=== PATIENT | female | born 1960 | race Caucasian/White ===

== ENCOUNTER 2016-09-12 22:32 | Emergency (ER) | payer OTHER ==
[~2016-09-12] VITALS: Ht 154.9 cm; Wt 90.7 kg
[~2016-09-12 22:32] MED LIST: ALBU8.5H6 INH; ASPI-612 PO; ASPI-630 PO; BUDE10.2 IH; CEFP200T PO; FLUT1DIS3 IH; GLIP5TAB10 PO; GLYB5TAB3 PO; LOSA25TA4 PO; LOSA50TA2 PO; METF500T PO; METF500T4 PO; PANT40TA5 PO; PRED20TA PO; SIMV10TA3 PO; SITA100T PO; TRAM50TA PO; TRAZ100T12 PO; ZIPR80CA2 PO
[2016-09-12] MEDS ORDERED: IV NORMAL SALINE 500ML BAG 500 ML IV ONE (23:45)
[2016-09-12] MEDS ORDERED: HYDROmorphone 2 MG/ML VIAL IV PRN (23:45)
[2016-09-12] MEDS ORDERED: ONDANSETRON PF 4 MG/2 ML VIAL. IV ONE (23:45)
[2016-09-12 23:55] LABS: BILIRUBIN,URINE NEGATIVE (NEG); GLUCOSE,URINE >=1000 mg/dL (NEG); NITRITE,URINE NEGATIVE (NEG); PROTEIN,URINE NEGATIVE (NEG-TRACE); UROBILINOGEN,URINE 0.2 mg/dL (0.2 mg/dL)
[2016-09-13] MEDS ORDERED: LABETALOL 20 MG/4 ML DISP.SYRIN. IVP ONE
[2016-09-13 00:04] LABS: BACTERIA,URINE FEW /HPF (0-FEW); RBC,URINE OCC /HPF (0-2); SQUAMOUS EPITHELIAL CELL,UR FEW /LPF; WBC,URINE 20-40 /HPF (0-4)
[2016-09-13 00:25] LABS: BASO # 0.1 x10^3/uL (0.0-0.2); BASO % 1 % (0-3); EOS % 10 % (0-3); HEMATOCRIT 40.1 % (36.0-47.0); HEMOGLOBIN 13.1 g/dL (12.0-15.5); LYMPH # 2.3 x10^3/uL (1.0-4.8); LYMPH % 37 % (24-48); MEAN CORPUSCULAR HEMOGLOBIN 29 pg (25-35); MEAN CORPUSCULAR HGB CONC 33 g/dL (31-37); MEAN CORPUSCULAR VOLUME 90 fL (79-100); MONO % 7 % (0-9); NEUT % 45 % (31-73); PLATELET COUNT 266 x10^3/uL (140-400); RED BLOOD COUNT 4.47 x10^6/uL (3.50-5.40); RED CELL DISTRIBUTION WIDTH 14.1 % (11.5-14.5); WHITE BLOOD COUNT 6.3 x10^3/uL (4.0-11.0)
[2016-09-13 00:33] LABS: CALCIUM 8.7 mg/dL (8.5-10.1); CREATININE 0.8 mg/dL (0.6-1.0); GFR 73.9; POTASSIUM 4.3 mmol/L (3.5-5.1)
[2016-09-13 00:38] LABS: ALBUMIN 3.9 g/dL (3.4-5.0); DIRECT BILIRUBIN 0.1 mg/dL (0.0-0.2); TOTAL BILIRUBIN 0.1 mg/dL (0.2-1.0); TOTAL PROTEIN 7.1 g/dL (6.4-8.2)
[2016-09-13] MEDS ORDERED: MORP15TA PO (01:08)
[2016-09-13] MEDS ORDERED: ONDA4TAB10 SL (01:08)
--- NOTE | 2016-09-13 01:08 | PHYS DOC ---
Past Medical History Past Medical History: Asthma, Bronchitis, COPD, Depression, Diabetes-Type II, High Cholesterol, Hypertension, Other Additional Past Medical Histor: PYLEONEPHRITIS, INSOMNIA, MR Past Surgical History: Appendectomy, Hysterectomy, Tonsillectomy Alcohol Use: None Drug Use: None Adult General Chief Complaint Chief Complaint: MULTIPLE COMPLAINTS HPI HPI 55-year-old female presenting to the emergency department today primarily to be evaluated for her abdominal pain. She stated "the main reason I am here is to be seen for my belly pain". Her abdominal pain is been present for the past month it is intermittent nonradiating and without alleviating factors. It is moderate and not associated with nausea or vomiting. She also has a headache that she describes as a chronic headache is mild. Review of systems is negative for chest pain shortness of breath fevers chills diarrhea constipation blood in stool. All other review of systems is negative unless otherwise noted in history of present illness. ED course: 55-year-old female presenting to the emergency department with abdominal pain. Vital signs showed chronic hypertension. The patient was given medication for her hypertension. Initial abdominal exam: Soft nontender abdomen without rebound tenderness or guarding present. Negative McBurneys point. Negative Hyde sign. No ecchymosis present.. Otherwise blood work obtained along with a abdomen CT. Unremarkable workup. On reexamination the patient's abdomen continues to be nontender. The patient was then discharged home in stable condition to follow up with their primary care physician over the next 2- 3 days. They were to return if their symptoms worsened or if they were concerned for any reason. [id number] discharge instructions and return precautions were given. Patient's questions were answered to their satisfaction. Patient is comfortable plan. Review of Systems Review of Systems SEE ABOVE. Current Medications Current Medications Current Medications Medications (Trade) Dose Ordered Sig/[place] Start Time Stop Time Status Last Admin Dose Admin Hydromorphone HCl (Dilaudid) 0.5 mg PRN Q1HR PRN 09/12/16 23:45 09/13/16 00:04 0.5 MG Labetalol HCl (Normodyne) 20 mg 1X ONCE 09/13/16 00:00 09/13/16 00:01 DC 09/13/16 00:14 20 MG Ondansetron HCl (Zofran) 4 mg 1X ONCE 09/12/16 23:45 09/12/16 23:46 DC 09/13/16 00:01 4 MG Sodium Chloride 500 ml @ 500 mls/hr 1X ONCE 09/12/16 23:45 09/13/16 00:44 DC 09/12/16 23:59 500 MLS/HR Allergies Allergies Allergies Coded Allergies Type Severity Reaction Last Updated Verified No Known Drug Allergies 03/03/13 No Physical Exam Physical Exam Constitutional: Well developed, well nourished, no acute distress, non-toxic appearance. HENT: Normocephalic, atraumatic, bilateral external ears normal, oropharynx moist, no oral exudates, nose normal. [] Eyes: PERRLA, EOMI, conjunctiva normal, no discharge. [] Neck: Normal range of motion, no tenderness, supple, no stridor. [] Cardiovascular:Heart rate regular rhythm, no murmur [] Lungs & Thorax: Bilateral breath sounds clear to auscultation Abdomen: see above Skin: Warm, dry, no erythema, no rash. [] Back: No tenderness, no CVA tenderness. [] Extremities: No tenderness, no cyanosis, no clubbing, ROM intact, no edema. Neurologic: Alert and oriented X 3, normal motor function, normal sensory function, no focal deficits noted. [] Psychologic: Affect normal, judgement normal, mood normal. [] Current Patient Data Vital Signs Vital Signs Date Time Temp Pulse Resp B/P (MAP) Pulse Ox O2 Delivery O2 Flow Rate FiO2 09/13/16 00:28 92 160/107 (124) 09/13/16 00:11 92 Room Air 09/13/16 00:04 16 09/12/16 23:12 98.2 98.2 Lab Values Laboratory Tests Test 09/12/16 00:15 09/12/16 22:54 09/12/16 23:45 White Blood Count 6.3 x10^3/uL (4.0-11.0) Red Blood Count 4.47 x10^6/uL (3.50-5.40) Hemoglobin 13.1 g/dL (12.0-15.5) Hematocrit 40.1 % (36.0-47.0) Mean Corpuscular Volume 90 fL (79-100) Mean Corpuscular Hemoglobin 29 pg (25-35) Mean Corpuscular Hemoglobin Concent 33 g/dL (31-37) Red Cell Distribution Width 14.1 % (11.5-14.5) Platelet Count 266 x10^3/uL (140-400) Neutrophils (%) (Auto) 45 % (31-73) Lymphocytes (%) (Auto) 37 % (24-48) Monocytes (%) (Auto) 7 % (0-9) Eosinophils (%) (Auto) 10 % (0-3) H Basophils (%) (Auto) 1 % (0-3) Neutrophils # (Auto) 2.8 x10^3uL (1.8-7.7) Lymphocytes # (Auto) 2.3 x10^3/uL (1.0-4.8) Monocytes # (Auto) 0.4 x10^3/uL (0.0-1.1) Eosinophils # (Auto) 0.6 x10^3/uL (0.0-0.7) Basophils # (Auto) 0.1 x10^3/uL (0.0-0.2) Sodium Level 140 mmol/L (136-145) Potassium Level 4.3 mmol/L (3.5-5.1) Chloride Level 102 mmol/L (98-107) Carbon Dioxide Level 32 mmol/L (21-32) Anion Gap 6 (6-14) Blood Urea Nitrogen 15 mg/dL (7-20) Creatinine 0.8 mg/dL (0.6-1.0) Estimated GFR (Cockcroft-Gault) 73.9 Glucose Level 284 mg/dL (70-99) H Calcium Level 8.7 mg/dL (8.5-10.1) Total Bilirubin 0.1 mg/dL (0.2-1.0) L Direct Bilirubin 0.1 mg/dL (0.0-0.2) Aspartate Amino Transferase (AST) 12 U/L (15-37) L Alanine Aminotransferase (ALT) 29 U/L (14-59) Alkaline Phosphatase 54 U/L (46-116) Troponin I Quantitative < 0.017 ng/mL (0.000-0.055) Total Protein 7.1 g/dL (6.4-8.2) Albumin 3.9 g/dL (3.4-5.0) Lipase 248 U/L (73-393) POC Urine HCG, Qualitative Hcg negative (Negative) Urine Collection Type Unknown Urine Color Yellow Urine Clarity Clear Urine pH 5.0 Urine Specific [place] >=1.030 Urine Protein Negative mg/dL (NEG-TRACE) Urine Glucose (UA) >=1000 mg/dL (NEG) Urine Ketones (Stick) Trace mg/dL (NEG) Urine Blood Negative (NEG) Urine Nitrite Negative (NEG) Urine Bilirubin Negative (NEG) Urine Urobilinogen Dipstick 0.2 mg/dL (0.2 mg/dL) Urine Leukocyte Esterase Small (NEG) Urine RBC Occ /HPF (0-2) Urine WBC 20-40 /HPF (0-4) Urine Squamous Epithelial Cells Few /LPF Urine Bacteria Few /HPF (0-FEW) Urine Hyaline Casts Moderate /HPF Urine Mucus Mod /LPF Laboratory Tests 09/12/16 00:15 Laboratory Tests 09/12/16 00:15 EKG EKG [] Radiology/Procedures Radiology/Procedures [] Course & Med Decision Making Course & Med Decision Making Pertinent Labs and Imaging studies reviewed. (See chart for details) [] Dragon Disclaimer Dragon Disclaimer This electronic medical record was generated, in whole or in part, using a voice recognition dictation system. Departure Departure Impression: Primary Impression: Abdominal pain Disposition: HOME, SELF-CARE Condition: STABLE Referrals: ANGELA BLANCAS MD (PCP) Patient Instructions: Abdominal Pain Additional Instructions: Thank you for allowing us to participate in your care today. Followup with your primary care physician in 3 days if your symptoms do not improve. Call your Primary Doctor tomorrow and inform them of your visit today. If you do not have a primary care provider you can ask for a list of our primary care providers. Return to the emergency department you have any new or concerning findings. This should be evaluated by the primary care physician and any necessary consulting services for continued management within a few days after discharge. Return to emergency room if you have any new or concerning symptoms including but not limited to fever, chills, nausea, vomiting, intractable pain, any new rashes, chest pain, shortness of air, uncontrolled bleeding, difficulty breathing, and/or vision loss. You may have been prescribed medication that can change in your level of thinking and ability to operate machinery. These medications include hydrocodone and Ativan. Also, Benadryl has been known to do this as well. Be sure to check with your pharmacist and ask if the medications you've prescribed can affect your level of consciousness. I recommend not operating heavy machinery or driving while on medication such as these. Scripts Ondansetron (ZOFRAN ODT) 4 Mg Tab.rapdis 1 TAB SL PRN Q8HRS Y for NAUSEA, #6 TAB Prov: JILLIAN TILLMAN MD 09/13/16 Morphine Sulfate (MORPHINE SULFATE) 15 Mg Tablet 1 TAB PO PRN Q6-8HRS Y for SEVERE PAIN, #8 TAB Prov: JILLIAN TILLMAN MD 09/13/16 JILLIAN TILLMAN MD Sep 13, 2016 01:08
--- NOTE | 2016-09-13 01:48 | RAD ---
EXAM: Abdomen and pelvis CT without intravenous contrast. HISTORY: 55-year-old female with abdominal pain. TECHNIQUE: Computed tomographic images of the abdomen and pelvis were obtained without contrast. Multiplanar reformatting was performed. PQRS compliance statement: One or more of the following individualized dose reduction techniques were utilized for this examination: 1. Automated exposure control 2. Adjustment of the mA and/or kV according to patient size 3. Use of iterative reconstruction technique COMPARISON: June 20, 2015. FINDINGS: The lung bases demonstrate no acute finding. Detailed evaluation of the intra-abdominal and pelvic organs and vascular structures is limited secondary to lack of IV contrast. Within these limitations, the liver, spleen, pancreas, and adrenal glands demonstrate no focal abnormality. Cholelithiasis is redemonstrated, without evidence to suggest acute cholecystitis. Bilateral nonobstructing, subcentimeter renal calculi are redemonstrated. No ureteral calculi are seen. No perinephric or periureteral stranding is present. The GI tract demonstrates no dilated bowel loops to suggest obstruction. The appendix is surgically absent. The urinary bladder is grossly unremarkable. No intra-abdominal or pelvic free fluid, free air or significant lymphadenopathy is seen. Aorta is normal in caliber with atherosclerotic calcification present. Overlying soft tissues and visualized osseous structures demonstrate no acute or suspicious interval change. IMPRESSION: No interval acute intra-abdominal or pelvic process seen. Bilateral nonobstructing renal calculi are redemonstrated. Cholelithiasis is redemonstrated. Electronically signed by: Radha Fuentes MD (09/13/2016 1:45 AM)
[2016-09-13 02:30] VITALS: BP 152/83
== END 2016-09-13 02:36 | disposition home or self-care (01) ==
LOC: ER 22:32
DX: R10.9 Unspecified abdominal pain (principal); R51 Headache; J44.9 Chronic obstructive pulmonary disease, unspecified; E11.9 Type 2 diabetes mellitus without complications; E78.00 Pure hypercholesterolemia, unspecified; F32.9 Major depressive disorder, single episode, unspecified; I10 Essential (primary) hypertension; G47.00 Insomnia, unspecified; Z90.710 Acquired absence of both cervix and uterus; Z90.49 Acquired absence of other specified parts of digestive tract
CPT/HCPCS: 36415; 74176; 80048; 80076; 81001; 81025; 83690; 84484; 85027; 87086; 96361; 96374; 96375; 99285; J1170; J2405; J3490; J7040

== ENCOUNTER 2016-09-17 16:18 | Emergency (ER) | payer MEDICARE, OTHER ==
[~2016-09-17] VITALS: Ht 152.4 cm; Wt 98.9 kg
[~2016-09-17 16:18] MED LIST changes: +MORP15TA PO; +ONDA4TAB10 SL
[2016-09-17 16:48] VITALS: BP 169/81
[2016-09-17 17:05] LABS: BILIRUBIN,URINE NEGATIVE (NEG); GLUCOSE,URINE NEGATIVE (NEG); NITRITE,URINE NEGATIVE (NEG); PH,URINE 7.5; PROTEIN,URINE NEGATIVE (NEG-TRACE); UROBILINOGEN,URINE 0.2 mg/dL (0.2 mg/dL)
[2016-09-17 17:13] LABS: BACTERIA,URINE 0 /HPF (0-FEW); RBC,URINE 0 /HPF (0-2); SQUAMOUS EPITHELIAL CELL,UR FEW /LPF; WBC,URINE 0 /HPF (0-4)
--- NOTE | 2016-09-17 17:15 | PHYS DOC ---
Past Medical History Past Medical History: Asthma, Bronchitis, COPD, Depression, Diabetes-Type II, High Cholesterol, Hypertension, Other Additional Past Medical Histor: PYLEONEPHRITIS, INSOMNIA, MR Past Surgical History: Appendectomy, Hysterectomy, Tonsillectomy Alcohol Use: None Drug Use: None Adult General Chief Complaint Chief Complaint: Constipation HPI HPI Patient is a 55 year old female who presents with complaint of constipation. Patient states she has not had a bowel movement in 6 days. Patient has had 2 visits to the emergency department over the past 4 days both here at [facility] and at [facility]. Patient states that she has had 2 CT scans done during that time which were both negative. Patient states that she has been taking senna and MiraLAX at home with no relief in symptoms. Patient denies any associated fevers. Patient states that she is having body aches. Admits to nausea but no vomiting. Patient states that she is mainly concerned that she needs to have a bowel movement as she believes this will help with her symptoms. Review of Systems Review of Systems Constitutional: Denies fever or chills [] Eyes: Denies change in visual acuity, redness, or eye pain [] HENT: Denies nasal congestion or sore throat [] Respiratory: Denies cough or shortness of breath [] Cardiovascular: Denies chest pain or edema [] GI: Abdominal pain, nausea, constipation [] : Denies dysuria or hematuria [] Musculoskeletal: Denies back pain or joint pain [] Integument: Denies rash or skin lesions [] Neurologic: Denies headache, focal weakness or sensory changes [] Allergies Allergies Allergies Coded Allergies Type Severity Reaction Last Updated Verified No Known Drug Allergies 03/03/13 No Physical Exam Physical Exam Constitutional: Alert, afebrile, appears in mild discomfort. [] HENT: Normocephalic, atraumatic, bilateral external ears normal, oropharynx moist, no oral exudates, nose normal. [] Eyes: PERRLA, EOMI, conjunctiva normal, no discharge. [] Neck: Normal range of motion, no tenderness, supple, no stridor. [] Cardiovascular:Heart rate regular rhythm, no murmur [] Lungs & Thorax: Bilateral breath sounds clear to auscultation [] Abdomen: Bowel sounds normal, mildly distended, mild tenderness in all 4 quadrants, no guarding or rebound tenderness present, no masses, no pulsatile masses. [] Skin: Warm, dry, no erythema, no rash. [] Back: No tenderness, no CVA tenderness. [] Extremities: No tenderness, no cyanosis, no clubbing, ROM intact, no edema. [] Neurologic: Alert and oriented X 3, normal motor function, normal sensory function, no focal deficits noted. [] Current Patient Data Vital Signs Vital Signs Date Time Temp Pulse Resp B/P (MAP) Pulse Ox O2 Delivery O2 Flow Rate FiO2 09/17/16 16:48 98.3 78 20 169/81 (110) 99 Room Air 98.3 Lab Values Laboratory Tests Test 09/17/16 16:30 Urine Collection Type Unknown Urine Color Yellow Urine Clarity Clear Urine pH 7.5 Urine Specific [place] <=1.005 Urine Protein Negative mg/dL (NEG-TRACE) Urine Glucose (UA) Negative mg/dL (NEG) Urine Ketones (Stick) Negative mg/dL (NEG) Urine Blood Negative (NEG) Urine Nitrite Negative (NEG) Urine Bilirubin Negative (NEG) Urine Urobilinogen Dipstick 0.2 mg/dL (0.2 mg/dL) Urine Leukocyte Esterase Negative (NEG) Urine RBC 0 /HPF (0-2) Urine WBC 0 /HPF (0-4) Urine Squamous Epithelial Cells Few /LPF Urine Bacteria 0 /HPF (0-FEW) EKG EKG Not performed [] Radiology/Procedures Radiology/Procedures Two-view flat and upright abdominal series: Moderate amount of stool in colon, nonobstructive bowel gas pattern, no free air under the diaphragm [] Course & Med Decision Making Course & Med Decision Making Pertinent Labs and Imaging studies reviewed. (See chart for details) X-rays show nonobstructive bowel gas pattern. Patient prescribed magnesium citrate to assist with relief of constipation. Also recommended the patient use of Fleet enemas which are available [id number] as needed for constipation. Advise follow-up in 3-4 days a primary doctor and return to the emergency department for any worsening symptoms. Patient voiced understanding and in agreement with treatment plan. Dragon Disclaimer Dragon Disclaimer This electronic medical record was generated, in whole or in part, using a voice recognition dictation system. Departure Departure Impression: Primary Impression: Constipation Disposition: 01 HOME, SELF-CARE Condition: STABLE Referrals: ANGELA BLANCAS MD (PCP) Patient Instructions: Constipation, Adult Additional Instructions: Take magnesium citrate as prescribed to help with constipation. If this does not help resolve her constipation, it is recommended that you use Fleet enemas but are available [id number] as labeled on packaging to help with bowel movement. Follow-up to primary doctor in the next 3-4 days if symptoms not improving. Return to emergency department for any worsening symptoms. Scripts Magnesium Citrate (MAGNESIUM CITRATE) 296 Ml Solution 296 ML PO ONCE Y for CONSTIPATION, #296 ML Prov: KAREN WOO MD 09/17/16 Problem Qualifiers Primary Impression: Constipation Constipation type: unspecified constipation type Qualified Codes: K59.00 - Constipation, unspecified KAREN WOO MD Sep 17, 2016 17:15
[2016-09-17] MEDS ORDERED: MAGN296S9 PO (17:52)
--- NOTE | 2016-09-18 09:12 | RAD ---
Abdomen, 2 views, 09/17/2016: History: Abdominal pain and distention There is a moderate amount of gas and stool scattered throughout the colon. Several air-fluid levels are noted in the right lower quadrant. No free air is seen in the abdomen. There is no evidence of organomegaly . The bony structures are demineralized. Moderate scattered degenerative changes are evident in the spine. IMPRESSION: 1. Increased stool in the colon compatible with the given history of constipation. 2. Right lower quadrant air-fluid levels raising possibility of a mild localized ileus.
== END 2016-09-17 18:05 | disposition home or self-care (01) ==
LOC: ER 16:18
DX: K59.00 Constipation, unspecified (principal); J44.9 Chronic obstructive pulmonary disease, unspecified; F32.9 Major depressive disorder, single episode, unspecified; E11.9 Type 2 diabetes mellitus without complications; E78.00 Pure hypercholesterolemia, unspecified; I10 Essential (primary) hypertension; G47.00 Insomnia, unspecified; Z90.710 Acquired absence of both cervix and uterus; Z90.49 Acquired absence of other specified parts of digestive tract
CPT/HCPCS: 74020; 81001; 99285

== ENCOUNTER → 2017-08-21 | Outpatient (CLI) | payer OTHER | END | disposition home or self-care (01) | LOC: KCIC US 11:40 | DX: M50.30 Other cervical disc degeneration, unspecified cervical region (principal); M47.892 Other spondylosis, cervical region; M25.78 Osteophyte, vertebrae; E04.2 Nontoxic multinodular goiter | CPT/HCPCS: 72141; 76536 ==

== ENCOUNTER 2018-01-01 22:18 | Emergency (ER) | payer OTHER ==
[~2018-01-01] VITALS: Ht 152.4 cm; Wt 113.4 kg
[~2018-01-01 22:18] MED LIST changes: -LOSA25TA4 PO; +LOSA25TA5 PO; +MAGN296S9 PO; +METF500T16 PO; -METF500T4 PO; +TRAZ-86 PO; -TRAZ100T12 PO
[2018-01-01 23:07] LABS: BASO # 0.1 x10^3/uL (0.0-0.2); BASO % 1 % (0-3); EOS # 0.5 x10^3/uL (0.0-0.7); EOS % 7 % (0-3); LYMPH # 1.9 x10^3/uL (1.0-4.8); LYMPH % 28 % (24-48); MEAN CORPUSCULAR HEMOGLOBIN 28 pg (25-35); MEAN CORPUSCULAR HGB CONC 33 g/dL (31-37); MEAN CORPUSCULAR VOLUME 83 fL (79-100); MONO # 0.5 x10^3/uL (0.0-1.1); MONO % 8 % (0-9); NEUT # 3.9 x10^3uL (1.8-7.7); NEUT % 57 % (31-73); PLATELET COUNT 296 x10^3/uL (140-400); RED CELL DISTRIBUTION WIDTH 14.3 % (11.5-14.5); WHITE BLOOD COUNT 6.9 x10^3/uL (4.0-11.0)
[2018-01-01 23:08] LABS: BILIRUBIN,URINE NEGATIVE (NEG); CLARITY,URINE CLEAR; COLOR,URINE YELLOW; NITRITE,URINE NEGATIVE (NEG); PROTEIN,URINE NEGATIVE (NEG-TRACE); UROBILINOGEN,URINE 0.2 mg/dL (0.2 mg/dL)
[2018-01-01 23:17] LABS: RBC,URINE 0 /HPF (0-2)
[2018-01-01 23:18] LABS: BACTERIA,URINE FEW /HPF (0-FEW); SQUAMOUS EPITHELIAL CELL,UR FEW /LPF; WBC,URINE OCC /HPF (0-4)
[2018-01-01 23:21] LABS: CALCIUM 9.4 mg/dL (8.5-10.1); CREATININE 0.8 mg/dL (0.6-1.0); GFR 73.4; POTASSIUM 4.1 mmol/L (3.5-5.1)
[2018-01-01 23:27] LABS: ALBUMIN 3.8 g/dL (3.4-5.0); MAGNESIUM 1.6 mg/dL (1.8-2.4); TOTAL BILIRUBIN 0.2 mg/dL (0.2-1.0); TOTAL PROTEIN 7.7 g/dL (6.4-8.2)
[2018-01-01] MEDS ORDERED: FAMOTIDINE 20 MG/2 ML VIAL IVP ONE (23:30)
[2018-01-01] MEDS ORDERED: KETOROLAC 15 MG/ML VIAL. IV ONE (23:30)
[2018-01-01] MEDS ORDERED: ONDANSETRON PF 4 MG/2 ML VIAL. IV ONE (23:30)
[2018-01-01 23:36] LABS: CREATINE KINASE 46 U/L (26-192)
--- NOTE | 2018-01-01 23:57 | RAD ---
CT abdomen pelvis without intravenous contrast History: Right lower quadrant and abdominal pain.. Comparison: CT abdomen pelvis September 12, 2016 Technique: CT of the abdomen and pelvis was performed without intravenous or oral contrast. Exposure: One or more of the following individualized dose reduction techniques were utilized for this examination: 1. Automated exposure control 2. Adjustment of the mA and/or kV according to patient size 3. Use of iterative reconstruction technique Findings: Evaluation of solid organs is limited by lack of intravenous contrast. Evaluation of enteric structures may be limited by lack of oral contrast. Liver is unremarkable. Calcified splenic granulomata are present. Right adrenal gland is unremarkable. There is slight thickening of the left adrenal gland, similar to previous study. Cholelithiasis is present. No bowel obstruction or inflammation is identified. No free air or free fluid is seen in the abdomen or pelvis. Right kidney demonstrates presence of 3 small nonobstructive nephroliths ranging in size from punctate to 2 mm. Right ureter is free stone or obstruction. Left kidney demonstrates punctate nonobstructive nephrolith involving the inferior pole. Left ureter is free stone or obstruction. Urinary bladder is unremarkable. Previous appendectomy is suspected. Degenerative changes are present in the spine. Impression: Nonobstructive bilateral nephrolithiasis. 1. No acute abnormality identified in the abdomen or pelvis. 2. Cholelithiasis without evidence of cholecystitis. Electronically signed by: Oumar Shah MD (01/01/2018 11:54 PM) [facility]
[2018-01-02] VITALS: BP 142/60
--- NOTE | 2018-01-02 00:07 | PHYS DOC ---
Past Medical History Past Medical History: Asthma, Bipolar, Depression, Diabetes-Type II Additional Past Medical Histor: PYLEONEPHRITIS, INSOMNIA, MR Past Surgical History: No Surgical History Smoking: Quit Less Than 1 Year Additional Information: 20 [id number] Alcohol Use: None Drug Use: None Social History Narrative: Former recreational drug user. Disabled for mental health. Adult General Chief Complaint Chief Complaint: ABDOMINAL PAIN HPI HPI Patient is a 57 year old female presenting to the ED due to abdominal pain. She states that the pain started about a week ago and has been constant since. She is unable to discern the quality of the pain, and states that it's located in the suprapubic region. Severity 8/10. Timing is constant. Denies any radiation of pain. Also reports feeling constipated, but that her last BM was this morning. Denies nausea, vomiting, dysuria, changes in diet, recent travel. Review of Systems Review of Systems Constitutional: Denies fever or chills Eyes: Denies change in visual acuity, redness, or eye pain [] HENT: Denies nasal congestion or sore throat [] Respiratory: Denies cough or shortness of breath [] Cardiovascular: Denies chest pain GI: Reports abdominal pain, nausea, vomiting, bloody stools or diarrhea [] : Denies dysuria or hematuria [] Musculoskeletal: Denies back pain or joint pain [] Integument: Denies rash or skin lesions [] Neurologic: Denies headache, focal weakness or sensory changes [] Endocrine: Denies polyuria or polydipsia [] Complete systems were reviewed and found to be within normal limits, except as documented in this note. Current Medications Current Medications Current Medications Medications (Trade) Dose Ordered Sig/[place] Start Time Stop Time Status Last Admin Dose Admin Famotidine (Pepcid Vial) 20 mg 1X ONCE 01/01/18 23:30 01/01/18 23:31 DC 01/01/18 23:41 20 MG Ketorolac Tromethamine (Toradol 15mg Vial) 15 mg 1X ONCE 01/01/18 23:30 01/01/18 23:31 DC 01/01/18 23:40 15 MG Ondansetron HCl (Zofran) 4 mg 1X ONCE 01/01/18 23:30 01/01/18 23:31 DC 01/01/18 23:41 4 MG Allergies Allergies Allergies Coded Allergies Type Severity Reaction Last Updated Verified No Known Drug Allergies 03/03/13 No Physical Exam Physical Exam Constitutional: Well developed, well nourished, no acute distress, non-toxic appearance. [] HENT: Normocephalic, atraumatic, bilateral external ears normal, oropharynx moist, no oral exudates, nose normal. [] Eyes: PERRLA, EOMI, conjunctiva normal, no discharge. [] Neck: Normal range of motion, no tenderness, supple, no stridor. [] Cardiovascular:Heart rate regular rhythm, no murmur [] Lungs & Thorax: Bilateral breath sounds clear to auscultation [] Abdomen: Bowel sounds normal, soft, no tenderness, no masses, no pulsatile masses. [] Skin: Warm, dry, no erythema, no rash. [] Back: No tenderness, no CVA tenderness. [] Extremities: No tenderness, no cyanosis, no clubbing, ROM intact, no edema. [] Neurologic: Alert and oriented X 3, normal motor function, normal sensory function, no focal deficits noted. [] Psychologic: Affect normal, judgement normal, mood normal. [] Current Patient Data Vital Signs Vital Signs Date Time Temp Pulse Resp B/P (MAP) Pulse Ox O2 Delivery O2 Flow Rate FiO2 01/02/18 00:00 88 14 142/60 (87) 93 Room Air 01/01/18 22:59 98.6 98.6 Lab Values Laboratory Tests Test 01/01/18 22:29 01/01/18 22:54 Urine Collection Type Unknown Urine Color Yellow Urine Clarity Clear Urine pH 6.0 Urine Specific [place] 1.025 Urine Protein Negative mg/dL (NEG-TRACE) Urine Glucose (UA) >=1000 mg/dL (NEG) Urine Ketones (Stick) Negative mg/dL (NEG) Urine Blood Negative (NEG) Urine Nitrite Negative (NEG) Urine Bilirubin Negative (NEG) Urine Urobilinogen Dipstick 0.2 mg/dL (0.2 mg/dL) Urine Leukocyte Esterase Negative (NEG) Urine RBC 0 /HPF (0-2) Urine WBC Occ /HPF (0-4) Urine Squamous Epithelial Cells Few /LPF Urine Bacteria Few /HPF (0-FEW) White Blood Count 6.9 x10^3/uL (4.0-11.0) Red Blood Count 4.70 x10^6/uL (3.50-5.40) Hemoglobin 13.0 g/dL (12.0-15.5) Hematocrit 39.0 % (36.0-47.0) Mean Corpuscular Volume 83 fL (79-100) Mean Corpuscular Hemoglobin 28 pg (25-35) Mean Corpuscular Hemoglobin Concent 33 g/dL (31-37) Red Cell Distribution Width 14.3 % (11.5-14.5) Platelet Count 296 x10^3/uL (140-400) Neutrophils (%) (Auto) 57 % (31-73) Lymphocytes (%) (Auto) 28 % (24-48) Monocytes (%) (Auto) 8 % (0-9) Eosinophils (%) (Auto) 7 % (0-3) H Basophils (%) (Auto) 1 % (0-3) Neutrophils # (Auto) 3.9 x10^3uL (1.8-7.7) Lymphocytes # (Auto) 1.9 x10^3/uL (1.0-4.8) Monocytes # (Auto) 0.5 x10^3/uL (0.0-1.1) Eosinophils # (Auto) 0.5 x10^3/uL (0.0-0.7) Basophils # (Auto) 0.1 x10^3/uL (0.0-0.2) Prothrombin Time 12.0 SEC (11.7-14.0) Prothrombin Time INR 0.9 (0.8-1.1) PTT 25 SEC (24-38) Sodium Level 137 mmol/L (136-145) Potassium Level 4.1 mmol/L (3.5-5.1) Chloride Level 98 mmol/L (98-107) Carbon Dioxide Level 31 mmol/L (21-32) Anion Gap 8 (6-14) Blood Urea Nitrogen 16 mg/dL (7-20) Creatinine 0.8 mg/dL (0.6-1.0) Estimated GFR (Cockcroft-Gault) 73.4 BUN/Creatinine Ratio 20 (6-20) Glucose Level 353 mg/dL (70-99) H Calcium Level 9.4 mg/dL (8.5-10.1) Magnesium Level 1.6 mg/dL (1.8-2.4) L Total Bilirubin 0.2 mg/dL (0.2-1.0) Aspartate Amino Transferase (AST) 15 U/L (15-37) Alanine Aminotransferase (ALT) 38 U/L (14-59) Alkaline Phosphatase 72 U/L (46-116) Creatine Kinase 46 U/L (26-192) Creatine Kinase MB (Mass) 0.8 ng/mL (0.0-3.6) Creatine Kinase MB Relative Index % (0-4) Troponin I Quantitative < 0.017 ng/mL (0.000-0.055) Total Protein 7.7 g/dL (6.4-8.2) Albumin 3.8 g/dL (3.4-5.0) Albumin/Globulin Ratio 1.0 (1.0-1.7) Lipase 232 U/L (73-393) Laboratory Tests 01/01/18 22:54 Laboratory Tests 01/01/18 22:54 EKG EKG [] Radiology/Procedures Radiology/Procedures [] Course & Med Decision Making Course & Med Decision Making Pertinent Labs and Imaging studies reviewed. (See chart for details) [] Dragon Disclaimer Dragon Disclaimer This electronic medical record was generated, in whole or in part, using a voice recognition dictation system. Departure Departure Impression: Primary Impression: Abdominal pain Additional Impressions: Constipation Cholelithiasis Hyperglycemia Disposition: 01 HOME, SELF-CARE Condition: STABLE Referrals: PENNY COPELAND MD (PCP) FRANCISCO NAVARRO MD, SCOTT S MD Patient Instructions: Abdominal Pain (Nonspecific), Cholelithiasis, Easy-to- Read, Constipation, Adult, Rubs-oy-Whye Scripts Sennosides/Docusate Sodium (Colace 2-in-1 Tablet) 1 Each Tablet 1 EACH PO BID PRN for CONSTIPATION, #20 TAB Prov: SHAUN MAO DO 01/02/18 Magnesium Citrate (MAGNESIUM CITRATE) 296 Ml Solution 296 ML PO ONCE PRN for CONSTIPATION, #296 ML Prov: SHAUN MAO DO 01/02/18 Hyoscyamine Sulfate (LEVSIN-SL) 0.125 Mg Tab.subl 1-2 TAB SL PRN Q4HRS PRN for PAIN, #20 TAB 0 Refills Prov: SHAUN MAO DO 01/02/18 Problem Qualifiers Primary Impression: Abdominal pain Abdominal location: right lower quadrant Qualified Codes: R10.31 - Right lower quadrant pain Additional Impressions: Constipation Constipation type: unspecified constipation type Qualified Codes: K59.00 - Constipation, unspecified Cholelithiasis Cholelithiasis location: gallbladder Cholecystitis presence: without cholecystitis Biliary obstruction: without biliary obstruction Qualified Codes: K80.20 - Calculus of gallbladder without cholecystitis without obstruction SHAUN MAO DO Jan 02, 2018 00:07
[2018-01-02] MEDS ORDERED: HYOS0.1265 SL (00:27)
[2018-01-02] MEDS ORDERED: SENN-121 PO (00:27)
[2018-01-02] MEDS ORDERED: MAGN296S9 PO (00:27)
== END 2018-01-02 00:35 | disposition home or self-care (01) ==
LOC: ER 22:18
DX: K80.20 Calculus of gallbladder without cholecystitis without obstruction (principal); R10.30 Lower abdominal pain, unspecified; K59.00 Constipation, unspecified; E11.65 Type 2 diabetes mellitus with hyperglycemia; J45.909 Unspecified asthma, uncomplicated; Z87.891 Personal history of nicotine dependence
CPT/HCPCS: 36415; 74176; 80053; 81001; 82553; 83690; 83735; 84484; 85025; 85610; 85730; 96374; 96375; 99285; J1885; J2405; S0028

== ENCOUNTER 2018-02-07 07:21 | Emergency (ER) | payer OTHER ==
[~2018-02-07] VITALS: Ht 154.9 cm; Wt 113.4 kg
[~2018-02-07 07:21] MED LIST changes: +HYOS0.1265 SL; +SENN-121 PO
[2018-02-07] MEDS ORDERED: IV NORMAL SALINE 1000ML BAG 1,000 ML IV SCH (07:39)
--- NOTE | 2018-02-07 07:44 | PHYS DOC ---
Past Medical History Past Medical History: Asthma, Bipolar, Depression, Diabetes-Type II Additional Past Medical Histor: PYLEONEPHRITIS, INSOMNIA, MR Past Surgical History: No Surgical History Alcohol Use: None Drug Use: None Adult General Chief Complaint Chief Complaint: ABDOMINAL PAIN HPI HPI Patient is a 57-year-old female who presents to the emergency department for evaluation. She states that she has "nerve pain all over", and has for several years. She is also states that she is having abdominal pain, although she is not able to describe how long she has been having abdominal discomfort poor. She was seen in the emergency department about a month ago for abdominal pain and had a noncontrast CT scan, the results of which has been reviewed. The patient's history is very limited. She has not had any vomiting or diarrhea and does not appear to have any acute chest pain. She has not had any fevers or chills. There are no alleviating or exacerbating factors to the patient's symptoms. Review of Systems Review of Systems Constitutional: Denies fever or chills [] Eyes: Denies change in visual acuity, redness, or eye pain [] HENT: Denies nasal congestion or sore throat [] Respiratory: Denies cough or shortness of breath [] Cardiovascular: The patient denies any shortness of breath, chest pain, palpitations, or orthopnea[] GI: Denies nausea, vomiting, bloody stools or diarrhea [] : Denies dysuria or hematuria [] Musculoskeletal: Denies back pain or joint pain [] Integument: Denies rash or skin lesions [] Neurologic: Denies headache, focal weakness or sensory changes [] Endocrine: Denies polyuria or polydipsia [] All other systems were reviewed and found to be within normal limits, except as documented in this note. Current Medications Current Medications Current Medications Medications (Trade) Dose Ordered Sig/[place] Start Time Stop Time Status Last Admin Dose Admin Info (CONTRAST GIVEN -- Rx MONITORING) 1 each PRN DAILY PRN 02/07/18 08:15 02/09/18 08:14 Iohexol (Omnipaque 300 Mg/ml) 75 ml 1X ONCE 02/07/18 08:00 02/07/18 08:01 DC 02/07/18 08:41 75 ML Morphine Sulfate (Morphine Sulfate) 4 mg PRN Q15MIN PRN 02/07/18 07:45 02/08/18 07:44 Sodium Chloride 1,000 ml @ 1,000 mls/hr Q1H 02/07/18 07:39 02/07/18 08:38 DC 02/07/18 07:39 1,000 MLS/HR Allergies Allergies Allergies Coded Allergies Type Severity Reaction Last Updated Verified No Known Drug Allergies 03/03/13 No Physical Exam Physical Exam PHYSICAL EXAM: CONSTITUTIONAL: Well developed, well nourished, nontoxic appearing HEAD: normocephalic, atraumatic EENT: PERRL, EOMI. Conjunctivae normal color, sclerae non-icteric; moist mucous membranes. NECK: Supple, non-tender; no meningismus. LUNGS: Lungs CTA, breathing even and unlabored. Normal air movement. HEART: Regular rate and rhythm, no murmur CHEST: No deformity; non-tender ABDOMEN: The abdomen is soft, there is diffuse tenderness to palpation of the entire abdomen, most prominently in the right mid and lower abdomen, without rebound or guarding. There is no focal right upper quadrant tenderness to palpation. Exam is somewhat limited due to the patient's abdominal girth. No definite palpable masses or bruits. EXTREM: Normal ROM; no deformity, no calf tenderness. Normal pulses palpable in all extremities. There is no pedal edema. SKIN: No rash; no diaphoresis NEURO: Alert; normal speech and cognition; CN's grossly intact; strength grossly intact without focal deficit. BACK: No CVA TTP. Current Patient Data Vital Signs Vital Signs Date Time Temp Pulse Resp B/P (MAP) Pulse Ox O2 Delivery O2 Flow Rate FiO2 02/07/18 07:53 98.2 55 16 168/101 (123) 100 Room Air 98.2 Lab Values Laboratory Tests Test 02/07/18 07:50 White Blood Count 7.1 x10^3/uL (4.0-11.0) Red Blood Count 4.77 x10^6/uL (3.50-5.40) Hemoglobin 12.8 g/dL (12.0-15.5) Hematocrit 38.7 % (36.0-47.0) Mean Corpuscular Volume 81 fL (79-100) Mean Corpuscular Hemoglobin 27 pg (25-35) Mean Corpuscular Hemoglobin Concent 33 g/dL (31-37) Red Cell Distribution Width 13.8 % (11.5-14.5) Platelet Count 251 x10^3/uL (140-400) Neutrophils (%) (Auto) 57 % (31-73) Lymphocytes (%) (Auto) 30 % (24-48) Monocytes (%) (Auto) 7 % (0-9) Eosinophils (%) (Auto) 5 % (0-3) H Basophils (%) (Auto) 1 % (0-3) Neutrophils # (Auto) 4.0 x10^3uL (1.8-7.7) Lymphocytes # (Auto) 2.1 x10^3/uL (1.0-4.8) Monocytes # (Auto) 0.5 x10^3/uL (0.0-1.1) Eosinophils # (Auto) 0.4 x10^3/uL (0.0-0.7) Basophils # (Auto) 0.1 x10^3/uL (0.0-0.2) Urine Collection Type Unknown Urine Color Yellow Urine Clarity Clear Urine pH 7.0 Urine Specific [place] <=1.005 Urine Protein Negative mg/dL (NEG-TRACE) Urine Glucose (UA) 250 mg/dL (NEG) Urine Ketones (Stick) Negative mg/dL (NEG) Urine Blood Negative (NEG) Urine Nitrite Negative (NEG) Urine Bilirubin Negative (NEG) Urine Urobilinogen Dipstick 0.2 mg/dL (0.2 mg/dL) Urine Leukocyte Esterase Negative (NEG) Urine RBC 0 /HPF (0-2) Urine WBC Occ /HPF (0-4) Urine Squamous Epithelial Cells Few /LPF Urine Bacteria 0 /HPF (0-FEW) Sodium Level 136 mmol/L (136-145) Potassium Level 4.8 mmol/L (3.5-5.1) Chloride Level 95 mmol/L (98-107) L Carbon Dioxide Level 33 mmol/L (21-32) H Anion Gap 8 (6-14) Blood Urea Nitrogen 21 mg/dL (7-20) H Creatinine 0.7 mg/dL (0.6-1.0) Estimated GFR (Cockcroft-Gault) 85.6 BUN/Creatinine Ratio 30 (6-20) H Glucose Level 299 mg/dL (70-99) H Lactic Acid Level 1.5 mmol/L (0.4-2.0) Calcium Level 9.1 mg/dL (8.5-10.1) Total Bilirubin 0.2 mg/dL (0.2-1.0) Aspartate Amino Transferase (AST) 12 U/L (15-37) L Alanine Aminotransferase (ALT) 29 U/L (14-59) Alkaline Phosphatase 66 U/L (46-116) Troponin I Quantitative < 0.017 ng/mL (0.000-0.055) Total Protein 7.1 g/dL (6.4-8.2) Albumin 3.6 g/dL (3.4-5.0) Albumin/Globulin Ratio 1.0 (1.0-1.7) Lipase 372 U/L (73-393) Acetone Level Neg (NEG) Laboratory Tests 02/07/18 07:50 Laboratory Tests 02/07/18 07:50 EKG EKG Normal sinus rhythm a rate of 97 beats for minute, normal axis, normal intervals. There are no acute ischemic ST/T changes.[] Radiology/Procedures Radiology/Procedures [PROCEDURE: CT ABD PELV W/ IV CONTRST ONLY PQRS Compliance Statement: One or more of the following individualized dose reduction techniques were utilized for this examination: 1. Automated exposure control 2. Adjustment of the mA and/or kV according to patient size 3. Use of iterative reconstruction technique CT ABD PELV W/ IV CONTRST ONLY Clinical Indication: RLQ ABD PAIN Comparison: CT abdomen and pelvis without contrast, January 01, 2018. Technique: Helical CT imaging of the abdomen and pelvis is performed after 75 cc Omnipaque 300 IV contrast. Oral contrast not given. Findings: Minimal scarring or atelectasis in the posterior lower lobes. Coronary artery disease. Cardiac size normal. Cholelithiasis. Calcified granulomas in the spleen. The liver, pancreas, adrenal glands, and abdominal aorta caliber are normal. A few sub-5 mm nonobstructing renal calculi redemonstrated. Kidneys enhance symmetrically. No perinephric stranding or hydronephrosis. Stomach is distended with fluid, otherwise normal. Similar to prior study, there is haziness of the central mesentery with several subcentimeter mesenteric lymph nodes. This finding is nonspecific. There is no dilated small bowel. Appendectomy. There is no colon wall thickening. The urinary bladder is mildly distended, otherwise normal. Hysterectomy. No pelvic free fluid. Degenerative changes in the spine and hips. IMPRESSION: 1. No acute abdominal or pelvic abnormality. 2. Cholelithiasis. 3. Bilateral nonobstructing renal calculi.] Course & Med Decision Making Course & Med Decision Making Pertinent Labs and Imaging studies reviewed. (See chart for details) [9:30 AM: The patient's condition remains stable. She is feeling much better at this time. I discussed test results in detail with the patient, the need for close PCP follow-up and further evaluation. Return precautions were discussed in detail.] Dragon Disclaimer Dragon Disclaimer This electronic medical record was generated, in whole or in part, using a voice recognition dictation system. Departure Departure Impression: Primary Impression: Abdominal pain Disposition: 01 HOME, SELF-CARE Condition: STABLE Referrals: PENNY COPELAND MD (PCP) Patient Instructions: Abdominal Pain Scripts Diclofenac Sodium (DICLOFENAC SODIUM) 50 Mg Tablet.dr 1 TAB PO BID, #20 TAB 0 Refills Prov: JEFFERY CALLES MD 02/07/18 JEFFERY CALLES MD Feb 07, 2018 07:43
[2018-02-07] MEDS ORDERED: MORPHINE SULFATE 4 MG/ML VIAL. IV/SQ PRN (07:45)
[2018-02-07 07:53] VITALS: BP 168/101
[2018-02-07] MEDS ORDERED: IOHEXOL 300 MG/ML 100ML VIAL. IV ONE (08:00)
[2018-02-07 08:03] LABS: BASO # 0.1 x10^3/uL (0.0-0.2); BASO % 1 % (0-3); EOS # 0.4 x10^3/uL (0.0-0.7); EOS % 5 % (0-3); HEMATOCRIT 38.7 % (36.0-47.0); HEMOGLOBIN 12.8 g/dL (12.0-15.5); LYMPH # 2.1 x10^3/uL (1.0-4.8); LYMPH % 30 % (24-48); MEAN CORPUSCULAR HEMOGLOBIN 27 pg (25-35); MEAN CORPUSCULAR HGB CONC 33 g/dL (31-37); MEAN CORPUSCULAR VOLUME 81 fL (79-100); MONO # 0.5 x10^3/uL (0.0-1.1); MONO % 7 % (0-9); NEUT % 57 % (31-73); PLATELET COUNT 251 x10^3/uL (140-400); RED BLOOD COUNT 4.77 x10^6/uL (3.50-5.40); RED CELL DISTRIBUTION WIDTH 13.8 % (11.5-14.5); WHITE BLOOD COUNT 7.1 x10^3/uL (4.0-11.0)
[2018-02-07 08:11] LABS: BILIRUBIN,URINE NEGATIVE (NEG); CLARITY,URINE CLEAR; COLOR,URINE YELLOW; NITRITE,URINE NEGATIVE (NEG); PROTEIN,URINE NEGATIVE (NEG-TRACE); UROBILINOGEN,URINE 0.2 mg/dL (0.2 mg/dL)
[2018-02-07] MEDS ORDERED: CONTRAST GIVEN. MC PRN (08:15)
[2018-02-07 08:18] LABS: SQUAMOUS EPITHELIAL CELL,UR FEW /LPF
[2018-02-07 08:19] LABS: BACTERIA,URINE 0 /HPF (0-FEW); RBC,URINE 0 /HPF (0-2); WBC,URINE OCC /HPF (0-4)
[2018-02-07 08:23] LABS: ANION GAP 8 (6-14); BLOOD UREA NITROGEN 21 mg/dL (7-20); BUN/CREATININE RATIO 30 (6-20); CALCIUM 9.1 mg/dL (8.5-10.1); CARBON DIOXIDE 33 mmol/L (21-32); CHLORIDE 95 mmol/L (98-107); CREATININE 0.7 mg/dL (0.6-1.0); GFR 85.6; GLUCOSE 299 mg/dL (70-99); POTASSIUM 4.8 mmol/L (3.5-5.1); SODIUM 136 mmol/L (136-145)
[2018-02-07 08:29] LABS: ALBUMIN 3.6 g/dL (3.4-5.0); ALK PHOS 66 U/L (46-116); ALT (SGPT) 29 U/L (14-59); AST (SGOT) 12 U/L (15-37); LIPASE 372 U/L (73-393); TOTAL BILIRUBIN 0.2 mg/dL (0.2-1.0); TOTAL PROTEIN 7.1 g/dL (6.4-8.2)
--- NOTE | 2018-02-07 08:37 | EKG ---
[facility] [address] [place] [address] Test Date: 2018-02-07 Test Time: 07:58:36 Pat Name: RENA BROTHERS Department: Room: Gender: F [employer]: : 1960 Requested By: JEFFERY CALLES Order Number: [id number] Reading MD: Singh Fernández Measurements Intervals [place] Rate: 97 P: 104 DC: 142 QRS: 84 QRSD: 86 T: 62 QT: 354 QTc: 453 Interpretive Statements SINUS RHYTHM NORMAL ECG Electronically Signed On 02-12-2018 10:40:11 CAREER COUNSELOR by Singh Fernández
[2018-02-07 09:00] LABS: ACETONE NEG (NEG)
--- NOTE | 2018-02-07 09:10 | RAD ---
PQRS Compliance Statement: One or more of the following individualized dose reduction techniques were utilized for this examination: 1. Automated exposure control 2. Adjustment of the mA and/or kV according to patient size 3. Use of iterative reconstruction technique CT ABD PELV W/ IV CONTRST ONLY Clinical Indication: RLQ ABD PAIN Comparison: CT abdomen and pelvis without contrast, January 01, 2018. Technique: Helical CT imaging of the abdomen and pelvis is performed after 75 cc Omnipaque 300 IV contrast. Oral contrast not given. Findings: Minimal scarring or atelectasis in the posterior lower lobes. Coronary artery disease. Cardiac size normal. Cholelithiasis. Calcified granulomas in the spleen. The liver, pancreas, adrenal glands, and abdominal aorta caliber are normal. A few sub-5 mm nonobstructing renal calculi redemonstrated. Kidneys enhance symmetrically. No perinephric stranding or hydronephrosis. Stomach is distended with fluid, otherwise normal. Similar to prior study, there is haziness of the central mesentery with several subcentimeter mesenteric lymph nodes. This finding is nonspecific. There is no dilated small bowel. Appendectomy. There is no colon wall thickening. The urinary bladder is mildly distended, otherwise normal. Hysterectomy. No pelvic free fluid. Degenerative changes in the spine and hips. IMPRESSION: 1. No acute abdominal or pelvic abnormality. 2. Cholelithiasis. 3. Bilateral nonobstructing renal calculi. Electronically signed by: Omid Wesley MD (02/07/2018 9:07 AM) [id number]
[2018-02-07] MEDS ORDERED: DICL50TA4 PO (09:28)
== END 2018-02-07 09:40 | disposition home or self-care (01) ==
LOC: ER 07:21
DX: K80.20 Calculus of gallbladder without cholecystitis without obstruction (principal); N20.0 Calculus of kidney; F31.9 Bipolar disorder, unspecified; J45.909 Unspecified asthma, uncomplicated; E11.9 Type 2 diabetes mellitus without complications; M79.2 Neuralgia and neuritis, unspecified
CPT/HCPCS: 36415; 74177; 80053; 81001; 82010; 83605; 83690; 84484; 85025; 93005; 99284; J7030; Q9967

== ENCOUNTER 2018-03-06 06:05 | Emergency (ER) | payer OTHER ==
[~2018-03-06] VITALS: Ht 152.4 cm; Wt 94.8 kg
[~2018-03-06 06:05] MED LIST changes: +ALBU2.5V8 INH; +DICL50TA4 PO; +HYDR-3164 PO; +LOSA-73 PO; -LOSA25TA5 PO; +LOSA25TA54 PO; -LOSA50TA2 PO; +PRED50TA PO
[2018-03-06] MEDS ORDERED: IPRATRPIUM/ALBUTEROL 0.5/2.5MG 3 ML NEBU. NEB ONE (06:45)
--- NOTE | 2018-03-06 07:11 | PHYS DOC ---
Past Medical History Past Medical History: Asthma, Bipolar, Depression, Diabetes-Type II Additional Past Medical Histor: PYLEONEPHRITIS, INSOMNIA, MR Past Surgical History: No Surgical History Alcohol Use: Occasionally Drug Use: None Adult General Chief Complaint Chief Complaint: Congestion HPI HPI Patient is a 57 year old female who presents with complaint of cough and congestion. Patient states that she is worried that she could have pneumonia. She states the cough has been unproductive. She denies any fever. Patient also indicates that her significant other has been mean to her recently because he has cancer. She states that she feels like nobody loves her and just thinks it would be nice if she can go to [facility]. She denies any actual suicidal ideations and has had no homicidal ideations. She states that nothing is making her feel any better. Review of Systems Review of Systems Constitutional: Denies fever or chills [] HENT: Complains of nasal congestion without sore throat [] Respiratory: Complains of cough without shortness of breath [] Cardiovascular: No additional information not addressed in HPI [] GI: Denies abdominal pain, nausea, vomiting or diarrhea [] Musculoskeletal: Denies back pain or joint pain [] All other systems were reviewed and found to be within normal limits, except as documented in this note. Current Medications Current Medications Current Medications Medications (Trade) Dose Ordered Sig/Austin Start Time Stop Time Status Last Admin Dose Admin Albuterol/ Ipratropium (Duoneb) 3 ml 1X ONCE 03/06/18 06:45 03/06/18 06:46 DC 03/06/18 06:55 3 ML Allergies Allergies Allergies Coded Allergies Type Severity Reaction Last Updated Verified No Known Drug Allergies 03/03/13 No Physical Exam Physical Exam Constitutional: Well developed, well nourished, no acute distress, non-toxic appearance. [] HENT: Normocephalic, atraumatic, bilateral external ears normal, oropharynx moist, no oral exudates, nose normal. [] Eyes: PERRLA, EOMI, conjunctiva normal, no discharge. [] Neck: Normal range of motion, no tenderness, supple, no stridor. [] Cardiovascular: Regular rate and rhythm, no murmur [] Lungs & Thorax: There are wheezes and fine rhonchi to auscultation [] Abdomen: Bowel sounds normal, soft. [] Skin: Warm, dry, no erythema, no rash. [] Extremities: No tenderness, no cyanosis, no clubbing, ROM intact. [] Neurologic: Awake and alert, no focal deficits noted. [] Psychologic: Flattened affect with depressed mood. [] Current Patient Data Vital Signs Vital Signs Date Time Temp Pulse Resp B/P (MAP) Pulse Ox O2 Delivery O2 Flow Rate FiO2 03/06/18 06:56 94 Room Air 03/06/18 06:22 98.0 90 22 169/98 (121) 98.0 Lab Values Laboratory Tests Test 03/06/18 07:08 03/06/18 07:45 White Blood Count 7.0 x10^3/uL (4.0-11.0) Red Blood Count 4.91 x10^6/uL (3.50-5.40) Hemoglobin 13.0 g/dL (12.0-15.5) Hematocrit 39.5 % (36.0-47.0) Mean Corpuscular Volume 80 fL (79-100) Mean Corpuscular Hemoglobin 26 pg (25-35) Mean Corpuscular Hemoglobin Concent 33 g/dL (31-37) Red Cell Distribution Width 14.5 % (11.5-14.5) Platelet Count 276 x10^3/uL (140-400) Neutrophils (%) (Auto) 59 % (31-73) Lymphocytes (%) (Auto) 26 % (24-48) Monocytes (%) (Auto) 8 % (0-9) Eosinophils (%) (Auto) 5 % (0-3) H Basophils (%) (Auto) 1 % (0-3) Neutrophils # (Auto) 4.1 x10^3uL (1.8-7.7) Lymphocytes # (Auto) 1.8 x10^3/uL (1.0-4.8) Monocytes # (Auto) 0.6 x10^3/uL (0.0-1.1) Eosinophils # (Auto) 0.4 x10^3/uL (0.0-0.7) Basophils # (Auto) 0.1 x10^3/uL (0.0-0.2) Sodium Level 137 mmol/L (136-145) Potassium Level 4.8 mmol/L (3.5-5.1) Chloride Level 97 mmol/L (98-107) L Carbon Dioxide Level 31 mmol/L (21-32) Anion Gap 9 (6-14) Blood Urea Nitrogen 13 mg/dL (7-20) Creatinine 0.8 mg/dL (0.6-1.0) Estimated GFR (Cockcroft-Gault) 73.4 BUN/Creatinine Ratio 16 (6-20) Glucose Level 242 mg/dL (70-99) H Calcium Level 9.4 mg/dL (8.5-10.1) Total Bilirubin 0.2 mg/dL (0.2-1.0) Aspartate Amino Transferase (AST) 16 U/L (15-37) Alanine Aminotransferase (ALT) 29 U/L (14-59) Alkaline Phosphatase 63 U/L (46-116) Total Protein 7.8 g/dL (6.4-8.2) Albumin 4.0 g/dL (3.4-5.0) Albumin/Globulin Ratio 1.1 (1.0-1.7) Ethyl Alcohol Level < 10 mg/dL (0-10) Urine Collection Type Unknown Urine Color Yellow Urine Clarity Clear Urine pH 6.5 Urine Specific [place] 1.015 Urine Protein Negative mg/dL (NEG-TRACE) Urine Glucose (UA) 500 mg/dL (NEG) Urine Ketones (Stick) Negative mg/dL (NEG) Urine Blood Negative (NEG) Urine Nitrite Negative (NEG) Urine Bilirubin Negative (NEG) Urine Urobilinogen Dipstick 0.2 mg/dL (0.2 mg/dL) Urine Leukocyte Esterase Negative (NEG) Urine RBC 0 /HPF (0-2) Urine WBC 5-10 /HPF (0-4) Urine Squamous Epithelial Cells Few /LPF Urine Bacteria 0 /HPF (0-FEW) Urine Opiates Screen Pos (NEG) Urine Methadone Screen Neg (NEG) Urine Barbiturates Neg (NEG) Urine Phencyclidine Screen Neg (NEG) Urine Amphetamine/Methamphetamine Neg (NEG) Urine Benzodiazepines Screen Neg (NEG) Urine Cocaine Screen Neg (NEG) Urine Cannabinoids Screen Neg (NEG) Urine Ethyl Alcohol Neg (NEG) Laboratory Tests 03/06/18 07:08 Laboratory Tests 03/06/18 07:08 EKG EKG [] Radiology/Procedures Radiology/Procedures [] Impressions: Chest x-ray demonstrates no acute process Course & Med Decision Making Course & Med Decision Making Pertinent Labs and Imaging studies reviewed. (See chart for details) [] Dragon Disclaimer Dragon Disclaimer This electronic medical record was generated, in whole or in part, using a voice recognition dictation system. Departure Departure Impression: Primary Impression: Acute bronchitis Additional Impression: Depression Disposition: 01 HOME, SELF-CARE Condition: STABLE Referrals: PENNY COPELAND MD (PCP) Patient Instructions: Acute Bronchitis, Depression, Adult Scripts Benzonatate (TESSALON PERLE) 100 Mg Capsule 1 CAP PO TID PRN for COUGH, #21 CAP Prov: GABRIELE MORE Jr. DO 03/06/18 Azithromycin (ZITHROMAX) 250 Mg Tablet 1 PKG PO UD, #6 TAB Prov: GABRIELE MORE Jr. DO 03/06/18 Problem Qualifiers Primary Impression: Acute bronchitis Bronchitis organism: unspecified organism Qualified Codes: J20.9 - Acute bronchitis, unspecified Additional Impression: Depression Depression Type: unspecified Qualified Codes: F32.9 - Major depressive disorder, single episode, unspecified GABRIELE MORE Jr. DO Mar 06, 2018 07:11
[2018-03-06 07:46] LABS: BASO # 0.1 x10^3/uL (0.0-0.2); BASO % 1 % (0-3); EOS # 0.4 x10^3/uL (0.0-0.7); EOS % 5 % (0-3); HEMATOCRIT 39.5 % (36.0-47.0); LYMPH # 1.8 x10^3/uL (1.0-4.8); LYMPH % 26 % (24-48); MEAN CORPUSCULAR HEMOGLOBIN 26 pg (25-35); MEAN CORPUSCULAR HGB CONC 33 g/dL (31-37); MEAN CORPUSCULAR VOLUME 80 fL (79-100); MONO # 0.6 x10^3/uL (0.0-1.1); MONO % 8 % (0-9); NEUT # 4.1 x10^3uL (1.8-7.7); NEUT % 59 % (31-73); PLATELET COUNT 276 x10^3/uL (140-400); RED BLOOD COUNT 4.91 x10^6/uL (3.50-5.40); RED CELL DISTRIBUTION WIDTH 14.5 % (11.5-14.5)
--- NOTE | 2018-03-06 07:48 | RAD ---
EXAM: PA and Lateral Views of the Chest DATE: 03/06/2018 6:35 AM INDICATION: COUGH AND CONGESTION X 2 WEEKS COMPARISON: CT 05/17/2010, chest radiograph 07/20/2017 FINDINGS: The heart is not enlarged. Atherosclerotic calcifications of the aorta are seen. Mediastinal and hilar contours are stable. Right apical calcified granuloma, stable. No focal parenchymal airspace opacity. No pleural effusion or pneumothorax. Bilateral accessory cervical ribs are seen. IMPRESSION: 1. No evidence for acute cardiopulmonary process. 2. Bilateral accessory cervical ribs are seen. Electronically signed by: Roland Gracia MD (03/06/2018 7:44 AM) [facility], [place]
[2018-03-06 07:59] LABS: BARBITURATES NEG (NEG); BENZODIAZEPINES NEG (NEG); CANNABINOIDS NEG (NEG); COCAINE NEG (NEG); METHADONE NEG (NEG); OPIATES POS (NEG); PHENCYCLIDINE NEG (NEG)
[2018-03-06 08:00] LABS: ALBUMIN/GLOBULIN RATIO 1.1 (1.0-1.7); CALCIUM 9.4 mg/dL (8.5-10.1); CREATININE 0.8 mg/dL (0.6-1.0); GFR 73.4; POTASSIUM 4.8 mmol/L (3.5-5.1); TOTAL BILIRUBIN 0.2 mg/dL (0.2-1.0); TOTAL PROTEIN 7.8 g/dL (6.4-8.2)
[2018-03-06 08:01] LABS: AMPHETAMINE/METHAMPHETAMINE NEG (NEG)
[2018-03-06 08:02] LABS: BILIRUBIN,URINE NEGATIVE (NEG); CLARITY,URINE CLEAR; COLOR,URINE YELLOW; NITRITE,URINE NEGATIVE (NEG); PH,URINE 6.5; PROTEIN,URINE NEGATIVE (NEG-TRACE); UROBILINOGEN,URINE 0.2 mg/dL (0.2 mg/dL)
[2018-03-06 08:14] LABS: SQUAMOUS EPITHELIAL CELL,UR FEW /LPF
[2018-03-06 08:15] LABS: BACTERIA,URINE 0 /HPF (0-FEW); RBC,URINE 0 /HPF (0-2)
[2018-03-06 08:21] VITALS: BP 130/92
[2018-03-06] MEDS ORDERED: BENZ100C PO (08:38)
[2018-03-06] MEDS ORDERED: AZIT250T PO (08:38)
== END 2018-03-06 08:59 | disposition home or self-care (01) ==
LOC: ER 06:05
DX: J20.9 Acute bronchitis, unspecified (principal); F31.9 Bipolar disorder, unspecified; J45.909 Unspecified asthma, uncomplicated; E11.21 Type 2 diabetes mellitus with diabetic nephropathy; G47.00 Insomnia, unspecified
CPT/HCPCS: 36415; 71046; 80053; 80307; 81001; 85025; 87086; 94640; 99284; G0480; J7620

== ENCOUNTER 2018-04-10 16:06 | Emergency (ER) | payer OTHER ==
[~2018-04-10] VITALS: Ht 154.9 cm; Wt 104.3 kg
[~2018-04-10 16:06] MED LIST changes: +AZIT250T PO; +BENZ100C PO
[2018-04-10 16:32] VITALS: BP 132/66
[2018-04-10] MEDS ORDERED: GABAPENTIN 300 MG CAPSULE. PO STA (16:39)
[2018-04-10] MEDS ORDERED: GABA300C18 PO (16:55)
--- NOTE | 2018-04-10 16:55 | PHYS DOC ---
Past Medical History Past Medical History: Asthma, Bipolar, Depression, Diabetes-Type II Additional Past Medical Histor: PYLEONEPHRITIS, INSOMNIA, MR (COURTNEY DUMONT APRN) Past Surgical History: No Surgical History (COURTNEY DUMONT APRN) Alcohol Use: Occasionally Drug Use: None (COURTNEY DUMONT APRN) Adult General Chief Complaint Chief Complaint: OTHER COMPLAINTS [facility] HPI Patient is a 57 year old female with history of bipolar, asthma, depression, generalized pain throughout her body that she states is chronic. She states she is supposed to be on tizanidine which she has not taken today. She states she went to be seen by a dentist today but found out her insurance cannot pay for the ride/cab back home. She had to take EMS to the ED to be evaluated for chronic pain. Patient states she has a boyfriend who is about to and his car does not work. Patient denies any suicidal or homicidal ideations. (COURTNEY DUMONT APRN) Review of Systems Review of Systems Constitutional: Denies fever or chills [] Eyes: Denies change in visual acuity, redness, or eye pain [] HENT: Denies nasal congestion or sore throat [] Respiratory: Denies cough or shortness of breath [] Cardiovascular: No additional information not addressed in HPI [] GI: Denies abdominal pain, nausea, vomiting, bloody stools or diarrhea [] : Denies dysuria or hematuria [] Musculoskeletal: Reports chronic pain Integument: Denies rash or skin lesions [] Neurologic: Denies headache, focal weakness or sensory changes [] All other systems were reviewed and found to be within normal limits, except as documented in this note. (COURTNEY DUMONT APRN) Current Medications Current Medications Current Medications Medications (Trade) Dose Ordered Sig/Austin Start Time Stop Time Status Last Admin Dose Admin Gabapentin (Neurontin) 300 mg 1X STAT 04/10/18 16:39 04/10/18 16:40 DC 04/10/18 16:53 300 MG (CALLIE FITZGERALD MD) Allergies Allergies Allergies Coded Allergies Type Severity Reaction Last Updated Verified No Known Drug Allergies 03/03/13 No (CALLIE FITZGERALD MD) Physical Exam Physical Exam Constitutional: Well developed, well nourished, no acute distress, non-toxic appearance. [] HENT: Normocephalic, atraumatic, bilateral external ears normal, oropharynx moist, no oral exudates, nose normal. [] Eyes: PERRLA, EOMI, conjunctiva normal, no discharge. [] Neck: Normal range of motion, no tenderness, supple, no stridor. [] Cardiovascular:Heart rate regular rhythm, no murmur [] Lungs & Thorax: Bilateral breath sounds clear to auscultation [] Abdomen: Bowel sounds normal, soft, no tenderness, no masses, no pulsatile masses. [] Skin: Warm, dry, no erythema, no rash. [] Back: No tenderness, no CVA tenderness. [] Extremities: No tenderness, no cyanosis, no clubbing, ROM intact, no edema. [] Neurologic: Alert and oriented X 3, normal motor function, normal sensory function, no focal deficits noted. [] Psych:depressed mood (COURTNEY DUMONT APRN) Current Patient Data Vital Signs Vital Signs Date Time Temp Pulse Resp B/P (MAP) Pulse Ox O2 Delivery O2 Flow Rate FiO2 04/10/18 16:32 98.6 86 16 132/66 (88) 98 Room Air 98.6 (CALLIE FITZGERALD MD) EKG EKG [] (COURTNEY DUMONT APRN) Radiology/Procedures Radiology/Procedures [] (COURTNEY DUMONT APRN) Course & Med Decision Making Course & Med Decision Making Pertinent Labs and Imaging studies reviewed. (See chart for details) This is a 57-year-old. Patient presenting to the ED today complaining of chronic pain. Patient presented to the ED via EMS, she apparently was at the dentist office and found our her insurance will not pay for, a cab back home, so she took an EMS to the ED to be seen for chronic pain. Patient will provided transportation back home, discharged with gabapentin. (COURTNEY DUMONT APRN) Course & Med Decision Making The chart was reviewed. Agree with the plan of care. (CALLIE FITZGERALD MD) Dragon Disclaimer Dragon Disclaimer This electronic medical record was generated, in whole or in part, using a voice recognition dictation system. (COURTNEY DUMONT APRN) Departure Departure Impression: Primary Impression: Chronic pain Disposition: 01 HOME, SELF-CARE Condition: STABLE Referrals: PENNY COPELAND MD (PCP) follow up in 1-2 weeks Patient Instructions: Musculoskeletal Pain Additional Instructions: You were evaluated in the emergency room for chronic pain. Please continue following up with your primary care doctor. Take the prescribed medications as needed for pain. Scripts Gabapentin (GABAPENTIN ) 300 Mg Capsule 300 MG PO TID for NEUROGENIC PAIN, #30 CAP Prov: CRISTIMosesCOURTNEY APRN 04/10/18 Problem Qualifiers Primary Impression: Chronic pain Chronic pain type: other chronic pain Qualified Codes: G89.29 - Other chronic pain COURTNEY DUMONT APRN Apr 10, 2018 16:55 CALLIE FITZGERALD MD Apr 11, 2018 10:33
== END 2018-04-10 17:06 | disposition home or self-care (01) ==
LOC: ER 16:06
DX: G89.29 Other chronic pain (principal); F31.9 Bipolar disorder, unspecified; J45.909 Unspecified asthma, uncomplicated; E11.9 Type 2 diabetes mellitus without complications
CPT/HCPCS: 99283

== ENCOUNTER 2018-08-08 15:00 | Inpatient (IN) | payer OTHER ==
[~2018-08-08] VITALS: Ht 154.9 cm; Wt 104.8 kg
[~2018-08-08 15:00] MED LIST changes: +GABA300C18 PO
--- NOTE | 2018-08-08 15:19 | PHYS DOC ---
Past Medical History Past Medical History: Asthma, Bipolar, Depression, Diabetes-Type II Additional Past Medical Histor: PYLEONEPHRITIS, INSOMNIA, MR Past Surgical History: No Surgical History Alcohol Use: Occasionally Drug Use: None Adult General Chief Complaint Chief Complaint: HYPERGLYCEMIA HPI HPI Patient is a 57 year old female with history of diabetes II, depression, asthma, COPD, who presents to the ED today complaining of her blood sugar being over 700. Patient is also stating she believes she has a UTI but has not specific UTI symptoms. She states she takes metformin for her diabetes. Denies any chest pain or shortness of breath. PCP [employer] Saige Mullen. Review of Systems Review of Systems Constitutional: Denies fever or chills [] Eyes: Denies change in visual acuity, redness, or eye pain [] HENT: Denies nasal congestion or sore throat [] Respiratory: Denies cough or shortness of breath [] Cardiovascular: No additional information not addressed in HPI [] GI: Denies abdominal pain, nausea, vomiting, bloody stools or diarrhea [] : Reports dysuria hematuria [] Musculoskeletal: Denies back pain or joint pain [] Integument: Denies rash or skin lesions [] Neurologic: Denies headache, focal weakness or sensory changes [] Endocrine: Reports blood glucose over 700 All other systems were reviewed and found to be within normal limits, except as documented in this note. Current Medications Current Medications Current Medications Medications (Trade) Dose Ordered Sig/Austin Start Time Stop Time Status Last Admin Dose Admin Dextrose (Dextrose 50%-Water Syringe) 12.5 gm PRN Q15MIN PRN 08/08/18 17:30 Insulin Human Lispro (HumaLOG) 0-5 UNITS TIDWMEALS 08/09/18 08:00 Insulin Human Regular (HumuLIN R VIAL) 8 unit 1X ONCE 08/08/18 17:30 08/08/18 17:38 DC Morphine Sulfate (Morphine Sulfate) 2 mg PRN Q2HR PRN 08/08/18 17:30 08/09/18 17:29 Ondansetron HCl (Zofran) 4 mg PRN Q8HRS PRN 08/08/18 17:30 08/09/18 17:29 Sodium Chloride 1,000 ml @ 125 mls/hr 1X ONCE 08/08/18 17:30 08/09/18 01:29 Allergies Allergies Allergies Coded Allergies Type Severity Reaction Last Updated Verified No Known Drug Allergies 03/03/13 No Physical Exam Physical Exam Constitutional: Well developed, well nourished, no acute distress, non-toxic appearance. [] HENT: Normocephalic, atraumatic, bilateral external ears normal, oropharynx moist, no oral exudates, nose normal. [] Eyes: PERRLA, EOMI, conjunctiva normal, no discharge. [] Neck: Normal range of motion, no tenderness, supple, no stridor. [] Cardiovascular:Heart rate regular rhythm, no murmur [] Lungs & Thorax: Bilateral breath sounds clear to auscultation [] Abdomen: Rounded abdomen. Bowel sounds normal, soft, no tenderness, no masses, no pulsatile masses. [] Skin: Warm, dry, patient has many bugs crawling throughout her body as well as her bed Back: No tenderness, no CVA tenderness. [] Extremities: No tenderness, no cyanosis, no clubbing, ROM intact, no edema. [] Neurologic: Alert and oriented X 3, normal motor function, normal sensory function, no focal deficits noted. [] Psychologic: Flat affect. Current Patient Data Vital Signs Vital Signs Date Time Temp Pulse Resp B/P (MAP) Pulse Ox O2 Delivery O2 Flow Rate FiO2 08/08/18 17:14 104 22 187/87 (120) 93 Nasal Cannula 2.0 08/08/18 15:47 98.3 98.3 Lab Values Laboratory Tests Test 08/08/18 15:15 08/08/18 15:16 08/08/18 16:00 Urine Collection Type Unknown Urine Color Yellow Urine Clarity Clear Urine pH 6.5 Urine Specific [place] >=1.030 Urine Protein Negative mg/dL (NEG-TRACE) Urine Glucose (UA) >=1000 mg/dL (NEG) Urine Ketones (Stick) Negative mg/dL (NEG) Urine Blood Negative (NEG) Urine Nitrite Negative (NEG) Urine Bilirubin Negative (NEG) Urine Urobilinogen Dipstick 0.2 mg/dL (0.2 mg/dL) Urine Leukocyte Esterase Negative (NEG) Urine RBC Occ /HPF (0-2) Urine WBC 1-4 /HPF (0-4) Urine Squamous Epithelial Cells Few /LPF Urine Bacteria 0 /HPF (0-FEW) Glucose (Fingerstick) 529 mg/dL (70-99) *H White Blood Count 6.7 x10^3/uL (4.0-11.0) Red Blood Count 5.03 x10^6/uL (3.50-5.40) Hemoglobin 12.5 g/dL (12.0-15.5) Hematocrit 39.8 % (36.0-47.0) Mean Corpuscular Volume 79 fL (79-100) Mean Corpuscular Hemoglobin 25 pg (25-35) Mean Corpuscular Hemoglobin Concent 31 g/dL (31-37) Red Cell Distribution Width 14.7 % (11.5-14.5) H Platelet Count 282 x10^3/uL (140-400) Neutrophils (%) (Auto) 60 % (31-73) Lymphocytes (%) (Auto) 27 % (24-48) Monocytes (%) (Auto) 8 % (0-9) Eosinophils (%) (Auto) 4 % (0-3) H Basophils (%) (Auto) 1 % (0-3) Neutrophils # (Auto) 4.0 x10^3uL (1.8-7.7) Lymphocytes # (Auto) 1.8 x10^3/uL (1.0-4.8) Monocytes # (Auto) 0.6 x10^3/uL (0.0-1.1) Eosinophils # (Auto) 0.3 x10^3/uL (0.0-0.7) Basophils # (Auto) 0.1 x10^3/uL (0.0-0.2) Sodium Level 135 mmol/L (136-145) L Potassium Level 4.4 mmol/L (3.5-5.1) Chloride Level 96 mmol/L (98-107) L Carbon Dioxide Level 31 mmol/L (21-32) Anion Gap 8 (6-14) Blood Urea Nitrogen 23 mg/dL (7-20) H Creatinine 0.9 mg/dL (0.6-1.0) Estimated GFR (Cockcroft-Gault) 64.1 BUN/Creatinine Ratio 26 (6-20) H Glucose Level 546 mg/dL (70-99) *H Calcium Level 9.2 mg/dL (8.5-10.1) Total Bilirubin 0.2 mg/dL (0.2-1.0) Aspartate Amino Transferase (AST) 18 U/L (15-37) Alanine Aminotransferase (ALT) 49 U/L (14-59) Alkaline Phosphatase 64 U/L (46-116) Total Protein 7.6 g/dL (6.4-8.2) Albumin 3.6 g/dL (3.4-5.0) Albumin/Globulin Ratio 0.9 (1.0-1.7) L Laboratory Tests 08/08/18 16:00 Laboratory Tests 08/08/18 16:00 EKG EKG [] Radiology/Procedures Radiology/Procedures [] Course & Med Decision Making Course & Med Decision Making Pertinent Labs and Imaging studies reviewed. (See chart for details) This is a 57-year-old female patient with history of diabetes type 2 presenting to the ED today complaining of blood glucose was 700 at home. Patient also states she believes she has a UTI. On arrival to the ED patient is covered with bugs crawling throughout her body as well as her bed-patient was given a chance to take a shower cleanup and was changed into hospital clothes. CBC with no acute findings, CMP with glucose of 546, anion gap is normal. Sodium 135. Urine negative for infection, no ketones. Vitals on arrival to the ED temperature 98.3 heart rate 104 respiration 20 room air blood pressure 166/100 O2 sats 97% on 2 L of oxygen. Patient was given 2 L of IV fluids. Spoke with Dr. Barrow who accepted patient for admission. He requested we give patient insulin 8 units which was ordered. Dragon Disclaimer Dragon Disclaimer This electronic medical record was generated, in whole or in part, using a voice recognition dictation system. Departure Departure Impression: Primary Impression: Hyperglycemia due to type 2 diabetes mellitus Additional Impressions: Elevated blood pressure reading Bed bug bite Disposition: ADMITTED INPATIENT Condition: STABLE Referrals: SAIGE MULLEN (PCP) Problem Qualifiers Primary Impression: Hyperglycemia due to type 2 diabetes mellitus Diabetes mellitus precision inspector insulin use: without precision inspector use Qualified Codes: E11.65 - Type 2 diabetes mellitus with hyperglycemia Additional Impressions: Bed bug bite Encounter type: initial encounter Qualified Codes: W57.XXXA - Bitten or stung by nonvenomous insect and other nonvenomous arthropods, initial encounter COURTNEY DUMONT APRN August 08, 2018 15:19
[2018-08-08] MEDS ORDERED: IV NORMAL SALINE 1000ML BAG 1,000 ML IV ONE ×3 (15:30→17:30)
[2018-08-08 15:39] LABS: BILIRUBIN,URINE NEGATIVE (NEG); CLARITY,URINE CLEAR; COLOR,URINE YELLOW; NITRITE,URINE NEGATIVE (NEG); PH,URINE 6.5; PROTEIN,URINE NEGATIVE (NEG-TRACE); UROBILINOGEN,URINE 0.2 mg/dL (0.2 mg/dL)
[2018-08-08 15:45] LABS: SQUAMOUS EPITHELIAL CELL,UR FEW /LPF
[2018-08-08 15:46] LABS: BACTERIA,URINE 0 /HPF (0-FEW); RBC,URINE OCC /HPF (0-2)
[2018-08-08 16:11] LABS: BASO # 0.1 x10^3/uL (0.0-0.2); BASO % 1 % (0-3); EOS # 0.3 x10^3/uL (0.0-0.7); EOS % 4 % (0-3); HEMATOCRIT 39.8 % (36.0-47.0); HEMOGLOBIN 12.5 g/dL (12.0-15.5); LYMPH # 1.8 x10^3/uL (1.0-4.8); LYMPH % 27 % (24-48); MEAN CORPUSCULAR HEMOGLOBIN 25 pg (25-35); MEAN CORPUSCULAR HGB CONC 31 g/dL (31-37); MEAN CORPUSCULAR VOLUME 79 fL (79-100); MONO # 0.6 x10^3/uL (0.0-1.1); MONO % 8 % (0-9); NEUT % 60 % (31-73); PLATELET COUNT 282 x10^3/uL (140-400); RED BLOOD COUNT 5.03 x10^6/uL (3.50-5.40); RED CELL DISTRIBUTION WIDTH 14.7 % (11.5-14.5); WHITE BLOOD COUNT 6.7 x10^3/uL (4.0-11.0)
[2018-08-08 16:30] LABS: ALBUMIN 3.6 g/dL (3.4-5.0); ALBUMIN/GLOBULIN RATIO 0.9 (1.0-1.7); CALCIUM 9.2 mg/dL (8.5-10.1); CREATININE 0.9 mg/dL (0.6-1.0); GFR 64.1; POTASSIUM 4.4 mmol/L (3.5-5.1); TOTAL BILIRUBIN 0.2 mg/dL (0.2-1.0); TOTAL PROTEIN 7.6 g/dL (6.4-8.2)
[2018-08-08] MEDS ORDERED: DEXTROSE 50% 25 GM / 50ML DISP.SYRIN. IV PRN (17:30)
[2018-08-08] MEDS ORDERED: ONDANSETRON PF 4 MG/2 ML VIAL. IV PRN (17:30)
[2018-08-08] MEDS ORDERED: INSULIN REGULAR 100 UNIT/ML 3ML VIAL. IV ONE (17:30)
[2018-08-08] MEDS ORDERED: MORPHINE SULFATE 2 MG/ML VIAL. IV PRN (17:30)
[2018-08-08] MEDS ORDERED: cloNIDine HCL 0.1 MG TABLET PO ONE (18:00)
--- NOTE | 2018-08-08 19:20 | NUR ---
The patient, RENA BROTHERS, 57 y/o, F admitted by NORBERTO CANCINO MD, was given written information regarding hospital policies, unit procedures and contact persons. Valuables were checked and left in the room.
[2018-08-08] MEDS ORDERED: traMADol 50 MG TABLET PO PRN (20:00)
[2018-08-08] MEDS ORDERED: MAGNESIUM HYDROXIDE 2,400 MG/30 ML ORAL.SUSP. PO PRN (20:00)
[2018-08-08] MEDS ORDERED: MAG HYDROX/ALUMINUM HYD/SIMETH 30 ML ORAL.SUSP PO PRN (20:00)
[2018-08-08] MEDS ORDERED: SENNOSIDES/DOCUSATE 8.6/50MG TABLET. PO PRN (20:00)
[2018-08-08] MEDS ORDERED: ALBUTEROL SULFATE 2.5 MG/3 ML NEBU. NEB PRN (20:15)
--- NOTE | 2018-08-08 20:31 | PDOC1 ---
History and Physical Date of Admission Date of Admission DATE: 08/08/18 TIME: 20:02 Identification/Chief Complaint Chief Complaint elevated blood sugar Problems: (1) Hyperglycemia due to type 2 diabetes mellitus Source Source: Chart review, Patient History of Present Illness History of Present Illness 57 year old hx of DM-2, non-insulin dependent, asthma, depression, COPD who presents to the ED after a reported glucometer reading of 700 at home. states she has had polyuria but denies any other symptoms. no chest pain, no sob, nausea vomiting. denies dysuria. patient takes metformin and glipizide and Januvia at home. states she is not compliant with her diet and eats log of sugar. sugar in ED was 500. patient given 2 liters of fluids and 8 units of SQ insulin. UA checked and ED and negative for infection. no recent a1c. hospitalist called for admission due to hyperglycemia Past Medical History Past Medical History HTN, DM, Depression, Insomnia, GERD Past Surgical History Past Surgical History: Appendectomy Family History Family History + DM Social History Smoke: <1 pack per day ALCOHOL: none Drugs: None Current Problem List Problem List Problems Medical Problems: (1) Bed bug bite Status: Acute (2) Elevated blood pressure reading Status: Acute (3) Hyperglycemia due to type 2 diabetes mellitus Status: Acute Current Medications Current Medications Current Medications Sodium Chloride 1,000 ml @ 1,000 mls/hr 1X ONCE IV Last administered on 08/08/18at 16:12; Start 08/08/18 at 15:30; Stop 08/08/18 at 16:29; Status DC Sodium Chloride 1,000 ml @ 1,000 mls/hr 1X ONCE IV Last administered on 08/08/18at 15:30; Start 08/08/18 at 15:30; Stop 08/08/18 at 16:29; Status DC Insulin Human Regular (HumuLIN R VIAL) 8 unit 1X ONCE IV Last administered on 08/08/18at 18:01; Start 08/08/18 at 17:30; Stop 08/08/18 at 17:38; Status DC Ondansetron HCl (Zofran) 4 mg PRN Q8HRS PRN IV NAUSEA/VOMITING; Start 08/08/18 at 17:30; Stop 08/09/18 at 17:29 Morphine Sulfate (Morphine Sulfate) 2 mg PRN Q2HR PRN IV PAIN; Start 08/08/18 at 17:30; Stop 08/09/18 at 17:29 Insulin Human Lispro (HumaLOG) 0-5 UNITS TIDWMEALS SQ ; Start 08/09/18 at 08:00 Dextrose (Dextrose 50%-Water Syringe) 12.5 gm PRN Q15MIN PRN IV SEE COMMENTS; Start 08/08/18 at 17:30 Sodium Chloride 1,000 ml @ 125 mls/hr 1X ONCE IV Last administered on 08/08/18at 19:00; Start 08/08/18 at 17:30; Stop 08/09/18 at 01:29 Clonidine HCl (Catapres) 0.1 mg 1X ONCE PO Last administered on 08/08/18at 18:05; Start 08/08/18 at 18:00; Stop 08/08/18 at 18:01; Status DC Sodium Chloride 1,000 ml @ 100 mls/hr Q10H IV ; Start 08/08/18 at 20:30 Al Hydroxide/Mg Hydroxide (Mylanta Plus Xs) 30 ml PRN Q3HRS PRN PO HEARTBURN / GAS; Start 08/08/18 at 20:00 Zolpidem Tartrate (Ambien) 5 mg PRN QHS PRN PO INSOMNIA, MAY REPEAT IN 1HR; Start 08/08/18 at 20:00 Senna/Docusate Sodium (Senna Plus) 1 tab BID PO ; Start 08/08/18 at 21:00 Magnesium Hydroxide (Milk Of Magnesia) 2,400 mg PRN Q12HR PRN PO CONSTIPATION; Start 08/08/18 at 20:00 Enoxaparin Sodium (Lovenox 40mg Syringe) 40 mg Q12HR SQ ; Start 08/08/18 at 21:00 Albuterol Sulfate (Ventolin Hfa) 2 puff Q4HRS INH ; Start 08/08/18 at 20:00; Status UNV Aspirin (Children'S Aspirin) 81 mg DAILY PO ; Start 08/09/18 at 09:00 Gabapentin (Neurontin) 300 mg TID PO ; Start 08/08/18 at 21:00 Glipizide (Glucotrol) 5 mg BIDWMEALS PO ; Start 08/08/18 at 21:00; Status UNV Losartan Potassium (Cozaar) 50 mg DAILY PO ; Start 08/09/18 at 09:00; Status UNV Pantoprazole Sodium (Protonix) 40 mg DAILYAC PO ; Start 08/09/18 at 07:30; Status UNV Senna/Docusate Sodium (Senna Plus) 1 tab BID PRN PO CONSTIPATION; Start 9 at 20:00; Status UNV Simvastatin (Zocor) 10 mg HS PO ; Start 08/08/18 at 21:00; Status UNV Tramadol HCl (Ultram) 50 mg Q6H PRN PO PAIN; Start 08/08/18 at 20:00; Status UNV Trazodone HCl (Desyrel) 100 mg QHS PO ; Start 08/08/18 at 21:00; Status UNV Non-Formulary Medication (Benzonatate (Tessalon Perle)) 1 cap TID PRN PO COUGH; Start 08/08/18 at 20:00; Status UNV Non-Formulary Medication (Budesonide/ Formoterol Fumarate (Symbicort 160-4.5 Mcg Inhaler)) 2 puff BID IH ; Start 08/08/18 at 21:00; Status UNV Non-Formulary Medication (Metformin Hcl (Glucophage)) 1,000 mg BIDWMEALS PO ; Start 08/09/18 at 08:00; Status UNV Non-Formulary Medication (Sitagliptin Phosphate (Januvia)) 100 mg DAILY PO ; Start 08/09/18 at 09:00; Status UNV Non-Formulary Medication (Ziprasidone Hcl (Geodon)) 160 mg DAILYWSUP PO ; Start 08/09/18 at 17:00; Status UNV Active Scripts Active Gabapentin (Gabapentin) 300 Mg Capsule 300 Mg PO TID Tessalon Perle (Benzonatate) 100 Mg Capsule 1 Cap PO TID PRN Zithromax (Azithromycin) 250 Mg Tablet 1 Pkg PO UD Proair Hfa Inhaler (Albuterol Sulfate) 8.5 Gm Hfa.aer.ad 2 Puff INH PRN Q6HRS PRN [place] 5-325 Tablet (Acetaminophen/Hydrocodone Bitart) 1 Each Tablet 1-2 Each PO PRN Q6HRS PRN as needed for pain Prednisone 50 Mg Tablet 1 Tab PO DAILY Diclofenac Sodium 50 Mg Tablet.dr 1 Tab PO BID Colace 2-in-1 Tablet (Sennosides/Docusate Sodium) 1 Each Tablet 1 Each PO BID PRN Magnesium Citrate 296 Ml Solution 296 Ml PO ONCE PRN Levsin-Sl (Hyoscyamine Sulfate) 0.125 Mg Tab.subl 1-2 Tab SL PRN Q4HRS PRN Magnesium Citrate 296 Ml Solution 296 Ml PO ONCE PRN Zofran Odt (Ondansetron) 4 Mg Tab.rapdis 1 Tab SL PRN Q8HRS PRN Morphine Sulfate 15 Mg Tablet 1 Tab PO PRN Q6-8HRS PRN Pantoprazole Sodium 40 Mg Tablet.dr 40 Mg PO DAILYAC Prednisone 20 Mg Tablet 20 Mg PO DAILY Glucophage (Metformin Hcl) 500 Mg Tablet 1,000 Mg PO BIDWMEALS Cozaar (Losartan Potassium) 50 Mg Tablet 50 Mg PO DAILY Cefpodoxime Proxetil 200 Mg Tablet 200 Mg PO BID Reported Geodon (Ziprasidone Hcl) 80 Mg Capsule 160 Mg PO DAILYWSUP Tramadol Hcl 50 Mg Tablet 50 Mg PO Q6H PRN Aspirin 81 Mg Tab.chew 81 Mg PO DAILY Januvia (Sitagliptin Phosphate) 100 Mg Tablet 100 Mg PO DAILY Simvastatin 10 Mg Tablet 10 Mg PO HS Glipizide 5 Mg Tablet 5 Mg PO BID Symbicort 160-4.5 Mcg Inhaler (Budesonide/Formoterol Fumarate) 10.2 Gm Hfa.aer.ad 2 Puff IH BID Albuterol Sulfate Hfa Inhaler (Albuterol Sulfate) 8.5 Gm Hfa.aer.ad 2 Puff INH Q4HRS Trazodone Hcl 100 Mg Tablet 1 Tab PO QHS Allergies Allergies: Coded Allergies: No Known Drug Allergies (Unverified , 03/03/13) ROS Review of System CONSTITUTIONAL: No fever or chills EYES: No recent changes SKIN: No rash or itching CARDIOVASCULAR: No chest pain, syncope, palpitations, or edema RESPIRATORY: No SOB or cough GASTROINTESTINAL: No nausea, vomiting or abdominal pain NEUROLOGICAL: No headaches or weakness ENDOCRINE: No cold or heat intolerance GENITOURINARY: No urgency or frequency of urination MUSCULOSKELETAL: No back pain or joint pain LYMPHATICS: No enlarged lymph nodes PSYCHIATRIC: No anxiety or depression Physical Exam Physical Exam GENERAL: No apparent distress. Alert and oriented. HEENT: Head normocephalic, atraumatic. NECK: Supple LUNGS: Clear to auscultation. HEART: RRR, S1, S2 present, pulses intact ABDOMEN: Soft, positive bowel sounds. EXTREMITIES: No cyanosis or edema. NEUROLOGIC: Normal speech, normal tone PSYCHIATRIC: Normal affect, normal mood. SKIN: No ulceration. Vitals Vitals Vital Signs Date Time Temp Pulse Resp B/P (MAP) Pulse Ox O2 Delivery O2 Flow Rate FiO2 08/08/18 18:41 98 18 163/82 (109) 99 Nasal Cannula 2.0 08/08/18 15:47 98.3 98.3 Labs Labs Laboratory Tests Test 08/08/18 15:15 08/08/18 15:16 08/08/18 16:00 Urine Collection Type Unknown Urine Color Yellow Urine Clarity Clear Urine pH 6.5 Urine Specific [place] >=1.030 Urine Protein Negative mg/dL (NEG-TRACE) Urine Glucose (UA) >=1000 mg/dL (NEG) Urine Ketones (Stick) Negative mg/dL (NEG) Urine Blood Negative (NEG) Urine Nitrite Negative (NEG) Urine Bilirubin Negative (NEG) Urine Urobilinogen Dipstick 0.2 mg/dL (0.2 mg/dL) Urine Leukocyte Esterase Negative (NEG) Urine RBC Occ /HPF (0-2) Urine WBC 1-4 /HPF (0-4) Urine Squamous Epithelial Cells Few /LPF Urine Bacteria 0 /HPF (0-FEW) Glucose (Fingerstick) 529 mg/dL (70-99) White Blood Count 6.7 x10^3/uL (4.0-11.0) Red Blood Count 5.03 x10^6/uL (3.50-5.40) Hemoglobin 12.5 g/dL (12.0-15.5) Hematocrit 39.8 % (36.0-47.0) Mean Corpuscular Volume 79 fL (79-100) Mean Corpuscular Hemoglobin 25 pg (25-35) Mean Corpuscular Hemoglobin Concent 31 g/dL (31-37) Red Cell Distribution Width 14.7 % (11.5-14.5) Platelet Count 282 x10^3/uL (140-400) Neutrophils (%) (Auto) 60 % (31-73) Lymphocytes (%) (Auto) 27 % (24-48) Monocytes (%) (Auto) 8 % (0-9) Eosinophils (%) (Auto) 4 % (0-3) Basophils (%) (Auto) 1 % (0-3) Neutrophils # (Auto) 4.0 x10^3uL (1.8-7.7) Lymphocytes # (Auto) 1.8 x10^3/uL (1.0-4.8) Monocytes # (Auto) 0.6 x10^3/uL (0.0-1.1) Eosinophils # (Auto) 0.3 x10^3/uL (0.0-0.7) Basophils # (Auto) 0.1 x10^3/uL (0.0-0.2) Sodium Level 135 mmol/L (136-145) Potassium Level 4.4 mmol/L (3.5-5.1) Chloride Level 96 mmol/L (98-107) Carbon Dioxide Level 31 mmol/L (21-32) Anion Gap 8 (6-14) Blood Urea Nitrogen 23 mg/dL (7-20) Creatinine 0.9 mg/dL (0.6-1.0) Estimated GFR (Cockcroft-Gault) 64.1 BUN/Creatinine Ratio 26 (6-20) Glucose Level 546 mg/dL (70-99) Calcium Level 9.2 mg/dL (8.5-10.1) Total Bilirubin 0.2 mg/dL (0.2-1.0) Aspartate Amino Transf (AST/SGOT) 18 U/L (15-37) Alanine Aminotransferase (ALT/SGPT) 49 U/L (14-59) Alkaline Phosphatase 64 U/L (46-116) Total Protein 7.6 g/dL (6.4-8.2) Albumin 3.6 g/dL (3.4-5.0) Albumin/Globulin Ratio 0.9 (1.0-1.7) Laboratory Tests Test 08/08/18 15:15 08/08/18 15:16 08/08/18 16:00 Urine Collection Type Unknown Urine Color Yellow Urine Clarity Clear Urine pH 6.5 Urine Specific [place] >=1.030 Urine Protein Negative mg/dL (NEG-TRACE) Urine Glucose (UA) >=1000 mg/dL (NEG) Urine Ketones (Stick) Negative mg/dL (NEG) Urine Blood Negative (NEG) Urine Nitrite Negative (NEG) Urine Bilirubin Negative (NEG) Urine Urobilinogen Dipstick 0.2 mg/dL (0.2 mg/dL) Urine Leukocyte Esterase Negative (NEG) Urine RBC Occ /HPF (0-2) Urine WBC 1-4 /HPF (0-4) Urine Squamous Epithelial Cells Few /LPF Urine Bacteria 0 /HPF (0-FEW) Glucose (Fingerstick) 529 mg/dL (70-99) White Blood Count 6.7 x10^3/uL (4.0-11.0) Red Blood Count 5.03 x10^6/uL (3.50-5.40) Hemoglobin 12.5 g/dL (12.0-15.5) Hematocrit 39.8 % (36.0-47.0) Mean Corpuscular Volume 79 fL (79-100) Mean Corpuscular Hemoglobin 25 pg (25-35) Mean Corpuscular Hemoglobin Concent 31 g/dL (31-37) Red Cell Distribution Width 14.7 % (11.5-14.5) Platelet Count 282 x10^3/uL (140-400) Neutrophils (%) (Auto) 60 % (31-73) Lymphocytes (%) (Auto) 27 % (24-48) Monocytes (%) (Auto) 8 % (0-9) Eosinophils (%) (Auto) 4 % (0-3) Basophils (%) (Auto) 1 % (0-3) Neutrophils # (Auto) 4.0 x10^3uL (1.8-7.7) Lymphocytes # (Auto) 1.8 x10^3/uL (1.0-4.8) Monocytes # (Auto) 0.6 x10^3/uL (0.0-1.1) Eosinophils # (Auto) 0.3 x10^3/uL (0.0-0.7) Basophils # (Auto) 0.1 x10^3/uL (0.0-0.2) Sodium Level 135 mmol/L (136-145) Potassium Level 4.4 mmol/L (3.5-5.1) Chloride Level 96 mmol/L (98-107) Carbon Dioxide Level 31 mmol/L (21-32) Anion Gap 8 (6-14) Blood Urea Nitrogen 23 mg/dL (7-20) Creatinine 0.9 mg/dL (0.6-1.0) Estimated GFR (Cockcroft-Gault) 64.1 BUN/Creatinine Ratio 26 (6-20) Glucose Level 546 mg/dL (70-99) Calcium Level 9.2 mg/dL (8.5-10.1) Total Bilirubin 0.2 mg/dL (0.2-1.0) Aspartate Amino Transf (AST/SGOT) 18 U/L (15-37) Alanine Aminotransferase (ALT/SGPT) 49 U/L (14-59) Alkaline Phosphatase 64 U/L (46-116) Total Protein 7.6 g/dL (6.4-8.2) Albumin 3.6 g/dL (3.4-5.0) Albumin/Globulin Ratio 0.9 (1.0-1.7) VTE Prophylaxis Ordered VTE Prophylaxis Devices: Yes VTE Pharmacological Prophylaxi: Yes Assessment/Plan Assessment/Plan ASSESSMENT Non-Ketotic Hyperglycemia in setting of UC DM Depression GERD COPD Tobacco Abuse PLAN - admit to medical floor bed - continue IVF, given 2 liters in ED - 8 units of insulin given in ED - not on home insulin therapy and refuses to start insulin therapy - continue home oral DM meds - check A1c - diabetic education - counselling on smoking cessation -dvt ppx: lovenox - full code anticipate dc tereza if sugars controlled Problem Qualifiers (1) Hyperglycemia due to type 2 diabetes mellitus: Diabetes mellitus [facility] insulin use: without emt intermediate use Qualified Codes: E11.65 - Type 2 diabetes mellitus with hyperglycemia NORBERTO CANCINO MD August 08, 2018 20:31
[2018-08-08] MEDS ORDERED: ZIPRASIDONE 20 MG CAPSULE PO SCH (21:00)
[2018-08-08] MEDS: ALBUTEROL SULFATE 2.5 MG/3 ML NEBU. NEB SCH (21:00)
[2018-08-08] MEDS: BUDESONIDE 0.5 MG/2 ML NEBU. NEB SCH (21:00)
[2018-08-08] MEDS ORDERED: traZODone 100 MG TABLET. PO SCH (21:00)
[2018-08-08] MEDS ORDERED: NON FORMULARY ITEM (Budesonide/Formoterol Fumarate (Symbicort 160-4.5 Mcg Inhaler) 2 PUFF) IH SCH (21:00)
[2018-08-08] MEDS ORDERED: GABAPENTIN 300 MG CAPSULE. PO SCH (21:00)
[2018-08-08] MEDS ORDERED: BENZONATATE 100 MG CAPSULE. PO PRN (21:00)
[2018-08-08] MEDS: hydrALAZINE 25 MG TABLET PO SCH (21:30)
[2018-08-08] MEDS: metFORMIN 500 MG TABLET PO SCH (22:13)
[2018-08-08] MEDS: glipiZIDE 5 MG TABLET PO SCH (22:13)
[2018-08-08] MEDS: SENNOSIDES/DOCUSATE 8.6/50MG TABLET. PO SCH (22:13)
[2018-08-08] MEDS: SIMVASTATIN 10 MG TABLET PO SCH (22:13)
[2018-08-08] MEDS: ENOXAPARIN 40 MG/0.4 ML SYRINGE. SQ SCH (22:14)
[2018-08-08 23:00] VITALS: BP 148/78
[2018-08-09 03:00] VITALS: BP 101/50
[2018-08-09] MEDS: IV 1/2 NORMAL SALINE 1,000 ML IV SCH ×3 (03:30→17:02)
[2018-08-09 06:21] LABS: BASO % 1 % (0-3); EOS # 0.3 x10^3/uL (0.0-0.7); EOS % 6 % (0-3); HEMATOCRIT 36.8 % (36.0-47.0); HEMOGLOBIN 11.5 g/dL (12.0-15.5); LYMPH # 2.2 x10^3/uL (1.0-4.8); LYMPH % 37 % (24-48); MEAN CORPUSCULAR HEMOGLOBIN 25 pg (25-35); MEAN CORPUSCULAR HGB CONC 31 g/dL (31-37); MEAN CORPUSCULAR VOLUME 79 fL (79-100); MONO # 0.5 x10^3/uL (0.0-1.1); MONO % 9 % (0-9); NEUT # 2.8 x10^3uL (1.8-7.7); NEUT % 48 % (31-73); PLATELET COUNT 253 x10^3/uL (140-400); RED BLOOD COUNT 4.63 x10^6/uL (3.50-5.40); RED CELL DISTRIBUTION WIDTH 14.7 % (11.5-14.5); WHITE BLOOD COUNT 5.8 x10^3/uL (4.0-11.0)
[2018-08-09 06:43] LABS: CALCIUM 8.5 mg/dL (8.5-10.1); CREATININE 0.7 mg/dL (0.6-1.0); GFR 85.6; POTASSIUM 4.5 mmol/L (3.5-5.1)
[2018-08-09 07:00] VITALS: BP 137/67
[2018-08-09] MEDS ORDERED: INSULIN LISPRO 300 UNITS/3 ML INSULN.PEN. SQ SCH (08:00)
[2018-08-09] MEDS: BUDESONIDE 0.5 MG/2 ML NEBU. NEB SCH ×2 (08:21→19:47)
[2018-08-09] MEDS: ALBUTEROL SULFATE 2.5 MG/3 ML NEBU. NEB SCH ×4 (08:21→19:47)
[2018-08-09] MEDS ORDERED: DEXTROSE 50% 25 GM / 50ML DISP.SYRIN. IV PRN (08:30)
--- NOTE | 2018-08-09 09:44 | PDOC ---
PROGRESS NOTES Chief Complaint Chief Complaint Non-Ketotic Hyperglycemia in setting of UC DM Depression GERD COPD Tobacco Abuse Obesity BMI 44 History of Present Illness History of Present Illness SHe is sound asleep and just moves when I stimulate her, but protecting airway. She got trazodone 100, Geodon, Neurontin 300 last night Also on Ambien when necessary Blood sugars are much better-was admitted because of blood sugar greater than 500s She is obese with unknown A1c. Only on OHA at home Needed 8 units insulin last night Plan: high-dose sliding scale insulin Check A1c DC trazodone, Neurontin and Geodon for now Keep fluids for now I need to see her again later when she is more awake to ask about sugar control her insulin regimen-but H&P reviewed, not on insulin at home just OHA Might be able to DC later or tomorrow morning once more awake and blood sugars better controlled Vitals Vitals Vital Signs Date Time Temp Pulse Resp B/P (MAP) Pulse Ox O2 Delivery O2 Flow Rate FiO2 08/09/18 08:32 96 Nasal Cannula 2.0 08/09/18 07:00 98.0 80 16 137/67 (90) 98.0 Physical Exam General: No acute distress, Other (deep sleep) Heart: Regular rate, Normal S1, Normal S2 Lungs: Clear Abdomen: Normal bowel sounds, Soft, No tenderness, Other (obese, nontender) Extremities: No clubbing, No edema, Normal pulses Skin: No breakdown, No significant lesion Labs LABS Laboratory Tests Test 08/08/18 15:15 08/08/18 15:16 08/08/18 16:00 08/08/18 22:10 Urine Collection Type Unknown Urine Color Yellow Urine Clarity Clear Urine pH 6.5 Urine Specific [place] >=1.030 Urine Protein Negative mg/dL (NEG-TRACE) Urine Glucose (UA) >=1000 mg/dL (NEG) Urine Ketones (Stick) Negative mg/dL (NEG) Urine Blood Negative (NEG) Urine Nitrite Negative (NEG) Urine Bilirubin Negative (NEG) Urine Urobilinogen Dipstick 0.2 mg/dL (0.2 mg/dL) Urine Leukocyte Esterase Negative (NEG) Urine RBC Occ /HPF (0-2) Urine WBC 1-4 /HPF (0-4) Urine Squamous Epithelial Cells Few /LPF Urine Bacteria 0 /HPF (0-FEW) Glucose (Fingerstick) 529 mg/dL (70-99) 371 mg/dL (70-99) White Blood Count 6.7 x10^3/uL (4.0-11.0) Red Blood Count 5.03 x10^6/uL (3.50-5.40) Hemoglobin 12.5 g/dL (12.0-15.5) Hematocrit 39.8 % (36.0-47.0) Mean Corpuscular Volume 79 fL (79-100) Mean Corpuscular Hemoglobin 25 pg (25-35) Mean Corpuscular Hemoglobin Concent 31 g/dL (31-37) Red Cell Distribution Width 14.7 % (11.5-14.5) Platelet Count 282 x10^3/uL (140-400) Neutrophils (%) (Auto) 60 % (31-73) Lymphocytes (%) (Auto) 27 % (24-48) Monocytes (%) (Auto) 8 % (0-9) Eosinophils (%) (Auto) 4 % (0-3) Basophils (%) (Auto) 1 % (0-3) Neutrophils # (Auto) 4.0 x10^3uL (1.8-7.7) Lymphocytes # (Auto) 1.8 x10^3/uL (1.0-4.8) Monocytes # (Auto) 0.6 x10^3/uL (0.0-1.1) Eosinophils # (Auto) 0.3 x10^3/uL (0.0-0.7) Basophils # (Auto) 0.1 x10^3/uL (0.0-0.2) Sodium Level 135 mmol/L (136-145) Potassium Level 4.4 mmol/L (3.5-5.1) Chloride Level 96 mmol/L (98-107) Carbon Dioxide Level 31 mmol/L (21-32) Anion Gap 8 (6-14) Blood Urea Nitrogen 23 mg/dL (7-20) Creatinine 0.9 mg/dL (0.6-1.0) Estimated GFR (Cockcroft-Gault) 64.1 BUN/Creatinine Ratio 26 (6-20) Glucose Level 546 mg/dL (70-99) Calcium Level 9.2 mg/dL (8.5-10.1) Total Bilirubin 0.2 mg/dL (0.2-1.0) Aspartate Amino Transf (AST/SGOT) 18 U/L (15-37) Alanine Aminotransferase (ALT/SGPT) 49 U/L (14-59) Alkaline Phosphatase 64 U/L (46-116) Total Protein 7.6 g/dL (6.4-8.2) Albumin 3.6 g/dL (3.4-5.0) Albumin/Globulin Ratio 0.9 (1.0-1.7) Test 08/09/18 04:15 08/09/18 06:41 08/09/18 07:21 White Blood Count 5.8 x10^3/uL (4.0-11.0) Red Blood Count 4.63 x10^6/uL (3.50-5.40) Hemoglobin 11.5 g/dL (12.0-15.5) Hematocrit 36.8 % (36.0-47.0) Mean Corpuscular Volume 79 fL (79-100) Mean Corpuscular Hemoglobin 25 pg (25-35) Mean Corpuscular Hemoglobin Concent 31 g/dL (31-37) Red Cell Distribution Width 14.7 % (11.5-14.5) Platelet Count 253 x10^3/uL (140-400) Neutrophils (%) (Auto) 48 % (31-73) Lymphocytes (%) (Auto) 37 % (24-48) Monocytes (%) (Auto) 9 % (0-9) Eosinophils (%) (Auto) 6 % (0-3) Basophils (%) (Auto) 1 % (0-3) Neutrophils # (Auto) 2.8 x10^3uL (1.8-7.7) Lymphocytes # (Auto) 2.2 x10^3/uL (1.0-4.8) Monocytes # (Auto) 0.5 x10^3/uL (0.0-1.1) Eosinophils # (Auto) 0.3 x10^3/uL (0.0-0.7) Basophils # (Auto) 0.0 x10^3/uL (0.0-0.2) Sodium Level 142 mmol/L (136-145) Potassium Level 4.5 mmol/L (3.5-5.1) Chloride Level 105 mmol/L (98-107) Carbon Dioxide Level 31 mmol/L (21-32) Anion Gap 6 (6-14) Blood Urea Nitrogen 16 mg/dL (7-20) Creatinine 0.7 mg/dL (0.6-1.0) Estimated GFR (Cockcroft-Gault) 85.6 Glucose Level 304 mg/dL (70-99) Calcium Level 8.5 mg/dL (8.5-10.1) Glucose (Fingerstick) 273 mg/dL (70-99) 287 mg/dL (70-99) Review of Systems Review of Systems Deep sleep, but protecting airway, hence unable to get ROS Assessment and Plan Assessmemt and Plan Problems Medical Problems: (1) Bed bug bite Status: Acute (2) Elevated blood pressure reading Status: Acute (3) Hyperglycemia due to type 2 diabetes mellitus Status: Acute Comment Review of Relevant I have reviewed the following items ana (where applicable) has been applied. Labs Laboratory Tests Test 08/08/18 15:15 08/08/18 15:16 08/08/18 16:00 08/08/18 22:10 Urine Collection Type Unknown Urine Color Yellow Urine Clarity Clear Urine pH 6.5 Urine Specific [place] >=1.030 Urine Protein Negative mg/dL (NEG-TRACE) Urine Glucose (UA) >=1000 mg/dL (NEG) Urine Ketones (Stick) Negative mg/dL (NEG) Urine Blood Negative (NEG) Urine Nitrite Negative (NEG) Urine Bilirubin Negative (NEG) Urine Urobilinogen Dipstick 0.2 mg/dL (0.2 mg/dL) Urine Leukocyte Esterase Negative (NEG) Urine RBC Occ /HPF (0-2) Urine WBC 1-4 /HPF (0-4) Urine Squamous Epithelial Cells Few /LPF Urine Bacteria 0 /HPF (0-FEW) Glucose (Fingerstick) 529 mg/dL (70-99) 371 mg/dL (70-99) White Blood Count 6.7 x10^3/uL (4.0-11.0) Red Blood Count 5.03 x10^6/uL (3.50-5.40) Hemoglobin 12.5 g/dL (12.0-15.5) Hematocrit 39.8 % (36.0-47.0) Mean Corpuscular Volume 79 fL (79-100) Mean Corpuscular Hemoglobin 25 pg (25-35) Mean Corpuscular Hemoglobin Concent 31 g/dL (31-37) Red Cell Distribution Width 14.7 % (11.5-14.5) Platelet Count 282 x10^3/uL (140-400) Neutrophils (%) (Auto) 60 % (31-73) Lymphocytes (%) (Auto) 27 % (24-48) Monocytes (%) (Auto) 8 % (0-9) Eosinophils (%) (Auto) 4 % (0-3) Basophils (%) (Auto) 1 % (0-3) Neutrophils # (Auto) 4.0 x10^3uL (1.8-7.7) Lymphocytes # (Auto) 1.8 x10^3/uL (1.0-4.8) Monocytes # (Auto) 0.6 x10^3/uL (0.0-1.1) Eosinophils # (Auto) 0.3 x10^3/uL (0.0-0.7) Basophils # (Auto) 0.1 x10^3/uL (0.0-0.2) Sodium Level 135 mmol/L (136-145) Potassium Level 4.4 mmol/L (3.5-5.1) Chloride Level 96 mmol/L (98-107) Carbon Dioxide Level 31 mmol/L (21-32) Anion Gap 8 (6-14) Blood Urea Nitrogen 23 mg/dL (7-20) Creatinine 0.9 mg/dL (0.6-1.0) Estimated GFR (Cockcroft-Gault) 64.1 BUN/Creatinine Ratio 26 (6-20) Glucose Level 546 mg/dL (70-99) Calcium Level 9.2 mg/dL (8.5-10.1) Total Bilirubin 0.2 mg/dL (0.2-1.0) Aspartate Amino Transf (AST/SGOT) 18 U/L (15-37) Alanine Aminotransferase (ALT/SGPT) 49 U/L (14-59) Alkaline Phosphatase 64 U/L (46-116) Total Protein 7.6 g/dL (6.4-8.2) Albumin 3.6 g/dL (3.4-5.0) Albumin/Globulin Ratio 0.9 (1.0-1.7) Test 08/09/18 04:15 08/09/18 06:41 08/09/18 07:21 White Blood Count 5.8 x10^3/uL (4.0-11.0) Red Blood Count 4.63 x10^6/uL (3.50-5.40) Hemoglobin 11.5 g/dL (12.0-15.5) Hematocrit 36.8 % (36.0-47.0) Mean Corpuscular Volume 79 fL (79-100) Mean Corpuscular Hemoglobin 25 pg (25-35) Mean Corpuscular Hemoglobin Concent 31 g/dL (31-37) Red Cell Distribution Width 14.7 % (11.5-14.5) Platelet Count 253 x10^3/uL (140-400) Neutrophils (%) (Auto) 48 % (31-73) Lymphocytes (%) (Auto) 37 % (24-48) Monocytes (%) (Auto) 9 % (0-9) Eosinophils (%) (Auto) 6 % (0-3) Basophils (%) (Auto) 1 % (0-3) Neutrophils # (Auto) 2.8 x10^3uL (1.8-7.7) Lymphocytes # (Auto) 2.2 x10^3/uL (1.0-4.8) Monocytes # (Auto) 0.5 x10^3/uL (0.0-1.1) Eosinophils # (Auto) 0.3 x10^3/uL (0.0-0.7) Basophils # (Auto) 0.0 x10^3/uL (0.0-0.2) Sodium Level 142 mmol/L (136-145) Potassium Level 4.5 mmol/L (3.5-5.1) Chloride Level 105 mmol/L (98-107) Carbon Dioxide Level 31 mmol/L (21-32) Anion Gap 6 (6-14) Blood Urea Nitrogen 16 mg/dL (7-20) Creatinine 0.7 mg/dL (0.6-1.0) Estimated GFR (Cockcroft-Gault) 85.6 Glucose Level 304 mg/dL (70-99) Calcium Level 8.5 mg/dL (8.5-10.1) Glucose (Fingerstick) 273 mg/dL (70-99) 287 mg/dL (70-99) Laboratory Tests Test 08/08/18 15:15 08/08/18 15:16 08/08/18 16:00 08/08/18 22:10 Urine Collection Type Unknown Urine Color Yellow Urine Clarity Clear Urine pH 6.5 Urine Specific [place] >=1.030 Urine Protein Negative mg/dL (NEG-TRACE) Urine Glucose (UA) >=1000 mg/dL (NEG) Urine Ketones (Stick) Negative mg/dL (NEG) Urine Blood Negative (NEG) Urine Nitrite Negative (NEG) Urine Bilirubin Negative (NEG) Urine Urobilinogen Dipstick 0.2 mg/dL (0.2 mg/dL) Urine Leukocyte Esterase Negative (NEG) Urine RBC Occ /HPF (0-2) Urine WBC 1-4 /HPF (0-4) Urine Squamous Epithelial Cells Few /LPF Urine Bacteria 0 /HPF (0-FEW) Glucose (Fingerstick) 529 mg/dL (70-99) 371 mg/dL (70-99) White Blood Count 6.7 x10^3/uL (4.0-11.0) Red Blood Count 5.03 x10^6/uL (3.50-5.40) Hemoglobin 12.5 g/dL (12.0-15.5) Hematocrit 39.8 % (36.0-47.0) Mean Corpuscular Volume 79 fL (79-100) Mean Corpuscular Hemoglobin 25 pg (25-35) Mean Corpuscular Hemoglobin Concent 31 g/dL (31-37) Red Cell Distribution Width 14.7 % (11.5-14.5) Platelet Count 282 x10^3/uL (140-400) Neutrophils (%) (Auto) 60 % (31-73) Lymphocytes (%) (Auto) 27 % (24-48) Monocytes (%) (Auto) 8 % (0-9) Eosinophils (%) (Auto) 4 % (0-3) Basophils (%) (Auto) 1 % (0-3) Neutrophils # (Auto) 4.0 x10^3uL (1.8-7.7) Lymphocytes # (Auto) 1.8 x10^3/uL (1.0-4.8) Monocytes # (Auto) 0.6 x10^3/uL (0.0-1.1) Eosinophils # (Auto) 0.3 x10^3/uL (0.0-0.7) Basophils # (Auto) 0.1 x10^3/uL (0.0-0.2) Sodium Level 135 mmol/L (136-145) Potassium Level 4.4 mmol/L (3.5-5.1) Chloride Level 96 mmol/L (98-107) Carbon Dioxide Level 31 mmol/L (21-32) Anion Gap 8 (6-14) Blood Urea Nitrogen 23 mg/dL (7-20) Creatinine 0.9 mg/dL (0.6-1.0) Estimated GFR (Cockcroft-Gault) 64.1 BUN/Creatinine Ratio 26 (6-20) Glucose Level 546 mg/dL (70-99) Calcium Level 9.2 mg/dL (8.5-10.1) Total Bilirubin 0.2 mg/dL (0.2-1.0) Aspartate Amino Transf (AST/SGOT) 18 U/L (15-37) Alanine Aminotransferase (ALT/SGPT) 49 U/L (14-59) Alkaline Phosphatase 64 U/L (46-116) Total Protein 7.6 g/dL (6.4-8.2) Albumin 3.6 g/dL (3.4-5.0) Albumin/Globulin Ratio 0.9 (1.0-1.7) Test 08/09/18 04:15 08/09/18 06:41 08/09/18 07:21 White Blood Count 5.8 x10^3/uL (4.0-11.0) Red Blood Count 4.63 x10^6/uL (3.50-5.40) Hemoglobin 11.5 g/dL (12.0-15.5) Hematocrit 36.8 % (36.0-47.0) Mean Corpuscular Volume 79 fL (79-100) Mean Corpuscular Hemoglobin 25 pg (25-35) Mean Corpuscular Hemoglobin Concent 31 g/dL (31-37) Red Cell Distribution Width 14.7 % (11.5-14.5) Platelet Count 253 x10^3/uL (140-400) Neutrophils (%) (Auto) 48 % (31-73) Lymphocytes (%) (Auto) 37 % (24-48) Monocytes (%) (Auto) 9 % (0-9) Eosinophils (%) (Auto) 6 % (0-3) Basophils (%) (Auto) 1 % (0-3) Neutrophils # (Auto) 2.8 x10^3uL (1.8-7.7) Lymphocytes # (Auto) 2.2 x10^3/uL (1.0-4.8) Monocytes # (Auto) 0.5 x10^3/uL (0.0-1.1) Eosinophils # (Auto) 0.3 x10^3/uL (0.0-0.7) Basophils # (Auto) 0.0 x10^3/uL (0.0-0.2) Sodium Level 142 mmol/L (136-145) Potassium Level 4.5 mmol/L (3.5-5.1) Chloride Level 105 mmol/L (98-107) Carbon Dioxide Level 31 mmol/L (21-32) Anion Gap 6 (6-14) Blood Urea Nitrogen 16 mg/dL (7-20) Creatinine 0.7 mg/dL (0.6-1.0) Estimated GFR (Cockcroft-Gault) 85.6 Glucose Level 304 mg/dL (70-99) Calcium Level 8.5 mg/dL (8.5-10.1) Glucose (Fingerstick) 273 mg/dL (70-99) 287 mg/dL (70-99) Medications Current Medications Sodium Chloride 1,000 ml @ 1,000 mls/hr 1X ONCE IV Last administered on 08/08/18at 16:12; Start 08/08/18 at 15:30; Stop 08/08/18 at 16:29; Status DC Sodium Chloride 1,000 ml @ 1,000 mls/hr 1X ONCE IV Last administered on 08/08/18at 15:30; Start 08/08/18 at 15:30; Stop 08/08/18 at 16:29; Status DC Insulin Human Regular (HumuLIN R VIAL) 8 unit 1X ONCE IV Last administered on 08/08/18at 18:01; Start 08/08/18 at 17:30; Stop 08/08/18 at 17:38; Status DC Ondansetron HCl (Zofran) 4 mg PRN Q8HRS PRN IV NAUSEA/VOMITING; Start 08/08/18 at 17:30; Stop 08/09/18 at 17:29 Morphine Sulfate (Morphine Sulfate) 2 mg PRN Q2HR PRN IV PAIN; Start 08/08/18 at 17:30; Stop 08/09/18 at 17:29 Insulin Human Lispro (HumaLOG) 0-5 UNITS TIDWMEALS SQ ; Start 08/09/18 at 08:00; Stop 08/09/18 at 08:20; Status DC Dextrose (Dextrose 50%-Water Syringe) 12.5 gm PRN Q15MIN PRN IV SEE COMMENTS; Start 08/08/18 at 17:30 Sodium Chloride 1,000 ml @ 125 mls/hr 1X ONCE IV Last administered on 08/08/18at 19:00; Start 08/08/18 at 17:30; Stop 08/09/18 at 01:29; Status DC Clonidine HCl (Catapres) 0.1 mg 1X ONCE PO Last administered on 08/08/18at 18:05; Start 08/08/18 at 18:00; Stop 08/08/18 at 18:01; Status DC Sodium Chloride 1,000 ml @ 100 mls/hr Q10H IV Last administered on 08/09/18at 03:30; Start 08/08/18 at 20:30 Al Hydroxide/Mg Hydroxide (Mylanta Plus Xs) 30 ml PRN Q3HRS PRN PO HEARTBURN / GAS; Start 08/08/18 at 20:00 Zolpidem Tartrate (Ambien) 5 mg PRN QHS PRN PO INSOMNIA, MAY REPEAT IN 1HR; Start 08/08/18 at 20:00 Senna/Docusate Sodium (Senna Plus) 1 tab BID PO Last administered on 08/08/18at 22:13; Start 08/08/18 at 21:00 Magnesium Hydroxide (Milk Of Magnesia) 2,400 mg PRN Q12HR PRN PO CONSTIPATION; Start 08/08/18 at 20:00 Enoxaparin Sodium (Lovenox 40mg Syringe) 40 mg Q12HR SQ Last administered on 08/08/18at 22:14; Start 08/08/18 at 21:00 Albuterol Sulfate (Ventolin Neb Soln) 2.5 mg PRN Q4HRS PRN NEB SHORTNESS OF BREATH; Start 08/08/18 at 20:15 Aspirin (Children'S Aspirin) 81 mg DAILY PO ; Start 08/09/18 at 09:00 Gabapentin (Neurontin) 300 mg TID PO Last administered on 08/08/18 22:13; Start 08/08/18 at 21:00 Glipizide (Glucotrol) 5 mg BIDWMEALS PO Last administered on 08/08/18at 22:13; Start 08/08/18 at 21:00 Losartan Potassium (Cozaar) 50 mg DAILY PO ; Start 08/09/18 at 09:00 Pantoprazole Sodium (Protonix) 40 mg DAILYAC PO ; Start 08/09/18 at 07:30 Senna/Docusate Sodium (Senna Plus) 1 tab PRN BID PRN PO CONSTIPATION 2ND CHOICE; Start 08/08/18 at 20:00 Simvastatin (Zocor) 10 mg HS PO Last administered on 08/08/18 22:13; Start 08/08/18 at 21:00 Tramadol HCl (Ultram) 50 mg PRN Q6HRS PRN PO PAIN; Start 08/08/18 at 20:00 Trazodone HCl (Desyrel) 100 mg QHS PO Last administered on 08/08/18at 22:12; Start 08/08/18 at 21:00 Benzonatate (Tessalon Perle) 100 mg PRN TID PRN PO COUGH; Start 08/08/18 at 21:00 Non-Formulary Medication (Budesonide/ Formoterol Fumarate (Symbicort 160-4.5 Mcg Inhaler)) 2 puff BID IH ; Start 08/08/18 at 21:00; Status UNV Metformin HCl (Glucophage) 1,000 mg BIDWMEALS PO Last administered on 08/08/18at 22:13; Start 08/08/18 at 21:00 Linagliptin (Tradjenta) 5 mg DAILY PO ; Start 08/09/18 at 09:00 Ziprasidone (Geodon) 160 mg DAILYWSUP PO Last administered on 08/08/18at 22:15; Start 08/08/18 at 21:00 Albuterol Sulfate (Ventolin Neb Soln) 2.5 mg RTQID NEB Last administered on 08/09/18at 08:21; Start 08/08/18 at 21:00 Budesonide (Pulmicort) 0.5 mg RTBID NEB Last administered on 08/09/18at 08:21; Start 08/08/18 at 21:00 Hydralazine HCl (Apresoline) 25 mg TID PO ; Start 08/08/18 at 21:30 Insulin Human Lispro (HumaLOG) 0-9 UNITS TIDWMEALS SQ ; Start 08/09/18 at 12:00 Dextrose (Dextrose 50%-Water Syringe) 12.5 gm PRN Q15MIN PRN IV SEE COMMENTS; Start 08/09/18 at 08:30 Active Scripts Active Gabapentin (Gabapentin) 300 Mg Capsule 300 Mg PO TID Tessalon Perle (Benzonatate) 100 Mg Capsule 1 Cap PO TID PRN Zithromax (Azithromycin) 250 Mg Tablet 1 Pkg PO UD Proair Hfa Inhaler (Albuterol Sulfate) 8.5 Gm Hfa.aer.ad 2 Puff INH PRN Q6HRS PRN [place] 5-325 Tablet (Acetaminophen/Hydrocodone Bitart) 1 Each Tablet 1-2 Each PO PRN Q6HRS PRN as needed for pain Prednisone 50 Mg Tablet 1 Tab PO DAILY Diclofenac Sodium 50 Mg Tablet.dr 1 Tab PO BID Colace 2-in-1 Tablet (Sennosides/Docusate Sodium) 1 Each Tablet 1 Each PO BID PRN Magnesium Citrate 296 Ml Solution 296 Ml PO ONCE PRN Levsin-Sl (Hyoscyamine Sulfate) 0.125 Mg Tab.subl 1-2 Tab SL PRN Q4HRS PRN Magnesium Citrate 296 Ml Solution 296 Ml PO ONCE PRN Zofran Odt (Ondansetron) 4 Mg Tab.rapdis 1 Tab SL PRN Q8HRS PRN Morphine Sulfate 15 Mg Tablet 1 Tab PO PRN Q6-8HRS PRN Pantoprazole Sodium 40 Mg Tablet.dr 40 Mg PO DAILYAC Prednisone 20 Mg Tablet 20 Mg PO DAILY Glucophage (Metformin Hcl) 500 Mg Tablet 1,000 Mg PO BIDWMEALS Cozaar (Losartan Potassium) 50 Mg Tablet 50 Mg PO DAILY Cefpodoxime Proxetil 200 Mg Tablet 200 Mg PO BID Reported Geodon (Ziprasidone Hcl) 80 Mg Capsule 160 Mg PO DAILYWSUP Tramadol Hcl 50 Mg Tablet 50 Mg PO Q6H PRN Aspirin 81 Mg Tab.chew 81 Mg PO DAILY Januvia (Sitagliptin Phosphate) 100 Mg Tablet 100 Mg PO DAILY Simvastatin 10 Mg Tablet 10 Mg PO HS Glipizide 5 Mg Tablet 5 Mg PO BID Symbicort 160-4.5 Mcg Inhaler (Budesonide/Formoterol Fumarate) 10.2 Gm Hfa.aer.ad 2 Puff IH BID Albuterol Sulfate Hfa Inhaler (Albuterol Sulfate) 8.5 Gm Hfa.aer.ad 2 Puff INH Q4HRS Trazodone Hcl 100 Mg Tablet 1 Tab PO QHS Vitals/I & O Vital Sign - Last 24 Hours 08/08/18 08/08/18 08/08/18 08/08/18 15:47 17:14 17:46 18:05 Temp 98.3 98.3 Pulse 104 104 94 105 Resp 20 18 B/P (MAP) 166/101 (122) 187/87 (120) 176/82 (113) 176/82 Pulse Ox 97 93 97 O2 Delivery Nasal Cannula Nasal Cannula Nasal Cannula O2 Flow Rate 2.0 2.0 2.0 08/08/18 08/08/18 08/08/18 08/08/18 18:11 18:41 20:00 21:02 Pulse 100 98 Resp 18 18 B/P (MAP) 163/77 (105) 163/82 (109) Pulse Ox 99 99 96 O2 Delivery Nasal Cannula Nasal Cannula Nasal Cannula O2 Flow Rate 2.0 2.0 2.0 08/08/18 08/08/18 08/09/18 08/09/18 21:03 23:00 03:00 07:00 Temp 98.4 96.4 98.0 98.4 96.4 98.0 Pulse 109 82 80 Resp 17 14 16 B/P (MAP) 148/78 (101) 101/50 (67) 137/67 (90) Pulse Ox 96 95 95 98 O2 Delivery Nasal Cannula Room Air Room Air O2 Flow Rate 2.0 08/09/18 08/09/18 08:31 08:32 Pulse Ox 96 96 O2 Delivery Nasal Cannula Nasal Cannula O2 Flow Rate 2.0 2.0 Intake and Output 08/08/18 08/08/18 08/09/18 15:00 23:00 07:00 Intake Total 2350 ml 0 ml Balance 2350 ml 0 ml RICKY HUGHES MD August 09, 2018 09:44
[2018-08-09] MEDS: ENOXAPARIN 40 MG/0.4 ML SYRINGE. SQ SCH ×2 (09:46→21:59)
[2018-08-09] MEDS: PANTOPRAZOLE 40 MG TABLET.DR. PO SCH (10:50)
[2018-08-09] MEDS: SENNOSIDES/DOCUSATE 8.6/50MG TABLET. PO SCH ×2 (10:51→21:59)
[2018-08-09] MEDS: LINAGLIPTIN 5 MG TABLET PO SCH (10:51)
[2018-08-09] MEDS: glipiZIDE 5 MG TABLET PO SCH ×2 (10:51→17:01)
[2018-08-09] MEDS: LOSARTAN POTASSIUM 50 MG TABLET. PO SCH (10:51)
[2018-08-09] MEDS: ASPIRIN CHEWABLE 81 MG TABLET. PO SCH (10:51)
[2018-08-09] MEDS: metFORMIN 500 MG TABLET PO SCH ×2 (10:51→17:01)
[2018-08-09] MEDS: hydrALAZINE 25 MG TABLET PO SCH ×3 (10:52→21:58)
[2018-08-09 11:00] VITALS: BP 129/60
[2018-08-09] MEDS: INSULIN LISPRO 300 UNITS/3 ML INSULN.PEN. SQ SCH ×2 (12:08→17:05)
[2018-08-09 15:00] VITALS: BP 138/55
[2018-08-09] MEDS: ACETAMINOPHEN 325 MG TABLET. PO PRN (16:09)
[2018-08-09 16:16] LABS: HEMOGLOBIN A1C 13.4 % (4.8-5.6)
--- NOTE | 2018-08-09 16:39 | NUR ---
SW following pt for anticipated dc needs. Chart reviewed. Pt lives at home with significant other and no discharge recommendations noted at this time.
[2018-08-09 19:00] VITALS: BP 136/60
[2018-08-09] MEDS: SIMVASTATIN 10 MG TABLET PO SCH (21:57)
[2018-08-09 23:00] VITALS: BP 119/72
[2018-08-10] MEDS: ZOLPIDEM 5 MG TABLET. PO PRN ×2 (00:37→20:50)
[2018-08-10] MEDS: ACETAMINOPHEN 325 MG TABLET. PO PRN ×2 (00:37→20:50)
[2018-08-10 02:50] VITALS: BP 105/57
[2018-08-10] MEDS: IV 1/2 NORMAL SALINE 1,000 ML IV SCH (03:34)
[2018-08-10] MEDS: PANTOPRAZOLE 40 MG TABLET.DR. PO SCH (06:30)
[2018-08-10 07:00] VITALS: BP 130/67
[2018-08-10] MEDS: BUDESONIDE 0.5 MG/2 ML NEBU. NEB SCH ×2 (07:29→19:44)
[2018-08-10] MEDS: ALBUTEROL SULFATE 2.5 MG/3 ML NEBU. NEB SCH ×4 (07:29→19:44)
[2018-08-10] MEDS: INSULIN LISPRO 300 UNITS/3 ML INSULN.PEN. SQ SCH ×3 (08:19→16:46)
[2018-08-10] MEDS ORDERED: HYDR-2868 PO (08:46)
[2018-08-10] MEDS ORDERED: INSU100I13 SQ (08:46)
[2018-08-10] MEDS ORDERED: GABA-585 PO (08:48)
[2018-08-10] MEDS ORDERED: HYDR-2815 PO (08:48)
--- NOTE | 2018-08-10 08:53 | PDOC3 ---
Discharge Summary Visit Information Date of Admission: August 08, 2018 Date of Discharge: August 10, 2018 Admitting Diagnosis Comment: Non-Ketotic Hyperglycemia in setting of uncontrolled DM Depression GERD COPD Tobacco Abuse Obesity BMI 44 Final Diagnosis Problems Medical Problems: (1) Bed bug bite Status: Acute (2) Elevated blood pressure reading Status: Acute (3) Hyperglycemia due to type 2 diabetes mellitus Status: Acute Brief Hospital Course Allergies Allergies Coded Allergies Type Severity Reaction Last Updated Verified No Known Drug Allergies 03/03/13 No Vital Signs Vital Signs Date Time Temp Pulse Resp B/P (MAP) Pulse Ox O2 Delivery O2 Flow Rate FiO2 08/10/18 07:31 94 Room Air 08/10/18 07:00 98.7 80 18 130/67 (88) 98.7 08/09/18 12:52 2.0 Lab Results Laboratory Tests Test 08/08/18 15:15 08/08/18 15:16 08/08/18 16:00 08/08/18 22:10 Urine Collection Type Unknown Urine Color Yellow Urine Clarity Clear Urine pH 6.5 Urine Specific [place] >=1.030 Urine Protein Negative mg/dL (NEG-TRACE) Urine Glucose (UA) >=1000 mg/dL (NEG) Urine Ketones (Stick) Negative mg/dL (NEG) Urine Blood Negative (NEG) Urine Nitrite Negative (NEG) Urine Bilirubin Negative (NEG) Urine Urobilinogen Dipstick 0.2 mg/dL (0.2 mg/dL) Urine Leukocyte Esterase Negative (NEG) Urine RBC Occ /HPF (0-2) Urine WBC 1-4 /HPF (0-4) Urine Squamous Epithelial Cells Few /LPF Urine Bacteria 0 /HPF (0-FEW) Glucose (Fingerstick) 529 mg/dL (70-99) 371 mg/dL (70-99) White Blood Count 6.7 x10^3/uL (4.0-11.0) Red Blood Count 5.03 x10^6/uL (3.50-5.40) Hemoglobin 12.5 g/dL (12.0-15.5) Hematocrit 39.8 % (36.0-47.0) Mean Corpuscular Volume 79 fL (79-100) Mean Corpuscular Hemoglobin 25 pg (25-35) Mean Corpuscular Hemoglobin Concent 31 g/dL (31-37) Red Cell Distribution Width 14.7 % (11.5-14.5) Platelet Count 282 x10^3/uL (140-400) Neutrophils (%) (Auto) 60 % (31-73) Lymphocytes (%) (Auto) 27 % (24-48) Monocytes (%) (Auto) 8 % (0-9) Eosinophils (%) (Auto) 4 % (0-3) Basophils (%) (Auto) 1 % (0-3) Neutrophils # (Auto) 4.0 x10^3uL (1.8-7.7) Lymphocytes # (Auto) 1.8 x10^3/uL (1.0-4.8) Monocytes # (Auto) 0.6 x10^3/uL (0.0-1.1) Eosinophils # (Auto) 0.3 x10^3/uL (0.0-0.7) Basophils # (Auto) 0.1 x10^3/uL (0.0-0.2) Sodium Level 135 mmol/L (136-145) Potassium Level 4.4 mmol/L (3.5-5.1) Chloride Level 96 mmol/L (98-107) Carbon Dioxide Level 31 mmol/L (21-32) Anion Gap 8 (6-14) Blood Urea Nitrogen 23 mg/dL (7-20) Creatinine 0.9 mg/dL (0.6-1.0) Estimated GFR (Cockcroft-Gault) 64.1 BUN/Creatinine Ratio 26 (6-20) Glucose Level 546 mg/dL (70-99) Hemoglobin A1c 13.4 % (4.8-5.6) Calcium Level 9.2 mg/dL (8.5-10.1) Total Bilirubin 0.2 mg/dL (0.2-1.0) Aspartate Amino Transf (AST/SGOT) 18 U/L (15-37) Alanine Aminotransferase (ALT/SGPT) 49 U/L (14-59) Alkaline Phosphatase 64 U/L (46-116) Total Protein 7.6 g/dL (6.4-8.2) Albumin 3.6 g/dL (3.4-5.0) Albumin/Globulin Ratio 0.9 (1.0-1.7) Test 08/09/18 04:15 08/09/18 06:41 08/09/18 07:21 08/09/18 11:10 White Blood Count 5.8 x10^3/uL (4.0-11.0) Red Blood Count 4.63 x10^6/uL (3.50-5.40) Hemoglobin 11.5 g/dL (12.0-15.5) Hematocrit 36.8 % (36.0-47.0) Mean Corpuscular Volume 79 fL (79-100) Mean Corpuscular Hemoglobin 25 pg (25-35) Mean Corpuscular Hemoglobin Concent 31 g/dL (31-37) Red Cell Distribution Width 14.7 % (11.5-14.5) Platelet Count 253 x10^3/uL (140-400) Neutrophils (%) (Auto) 48 % (31-73) Lymphocytes (%) (Auto) 37 % (24-48) Monocytes (%) (Auto) 9 % (0-9) Eosinophils (%) (Auto) 6 % (0-3) Basophils (%) (Auto) 1 % (0-3) Neutrophils # (Auto) 2.8 x10^3uL (1.8-7.7) Lymphocytes # (Auto) 2.2 x10^3/uL (1.0-4.8) Monocytes # (Auto) 0.5 x10^3/uL (0.0-1.1) Eosinophils # (Auto) 0.3 x10^3/uL (0.0-0.7) Basophils # (Auto) 0.0 x10^3/uL (0.0-0.2) Sodium Level 142 mmol/L (136-145) Potassium Level 4.5 mmol/L (3.5-5.1) Chloride Level 105 mmol/L (98-107) Carbon Dioxide Level 31 mmol/L (21-32) Anion Gap 6 (6-14) Blood Urea Nitrogen 16 mg/dL (7-20) Creatinine 0.7 mg/dL (0.6-1.0) Estimated GFR (Cockcroft-Gault) 85.6 Glucose Level 304 mg/dL (70-99) Calcium Level 8.5 mg/dL (8.5-10.1) Glucose (Fingerstick) 273 mg/dL (70-99) 287 mg/dL (70-99) 253 mg/dL (70-99) Test 08/09/18 16:36 08/09/18 20:31 08/10/18 07:52 Glucose (Fingerstick) 274 mg/dL (70-99) 269 mg/dL (70-99) 295 mg/dL (70-99) Laboratory Tests Test 08/09/18 11:10 08/09/18 16:36 08/09/18 20:31 08/10/18 07:52 Glucose (Fingerstick) 253 mg/dL (70-99) 274 mg/dL (70-99) 269 mg/dL (70-99) 295 mg/dL (70-99) Brief Hospital Course Ms. Hope is a 57 old obese White female who came from home and is interested in SNU, came in with HONK BS 500s, not on insulin but only on OHA, HGba1c 13.4. SOme drowsiness, on numerous sedating meds at home which she actually does not take but was given here bec that is the MAR we have on her on file, I stopped those. Rxd some prescription, refer to [facility] We'll see if she qualifies for SNU after PT OT eval and if her insurance will cover Pt seen and examined COnsults; none PRoc; none NO uTI dc 32mins Discharge Information Condition at Discharge: Improved, Stable Disposition/Orders: Other (snu) Scheduled Albuterol Sulfate (Albuterol Sulfate Hfa Inhaler) 8.5 Gm Hfa.aer.ad, 2 PUFF INH Q4HRS for FOR ASTHMA, Ref 0 (Reported) Entered as Reported by: MARY KWAN on 08/13/14 0808 Last Action: Continued on 08/08/181957 by NORBERTO CANCINO MD Aspirin (Aspirin) 81 Mg Tab.chew, 81 MG PO DAILY, (Reported) Entered as Reported by: JAYASHREE LOPEZ on 10/13/14 184 Last Action: Continued on 08/08/181957 by NORBERTO CANCINO MD Azithromycin (Zithromax) 250 Mg Tablet, 1 PKG PO UD, #6 Prescribed by: GABRIELE MORE D.O. on 03/06/18 0838 Last Action: HELD on 08/08/181957 by NORBERTO CANCINO MD Budesonide/Formoterol Fumarate (Symbicort 160-4.5 Mcg Inhaler) 10.2 Gm Hfa.aer.ad, 2 PUFF IH BID, #10.6 Ref 3 (Reported) Entered as Reported by: MARY KWAN on 08/13/14 0808 Last Action: Converted on 08/08/181957 by NORBERTO CANCINO MD Cefpodoxime Proxetil (Cefpodoxime Proxetil) 200 Mg Tablet, 200 MG PO BID, #14 Prescribed by: SHAUN MARTÍNEZ on 05/20/15 0903 Last Action: HELD on 08/08/181957 by NORBERTO CANCINO MD Diclofenac Sodium (Diclofenac Sodium) 50 Mg Tablet.dr, 1 TAB PO BID, #20 Ref 0 Prescribed by: JEFFERY CALLES MD on 02/07/18 09 Last Action: HELD on 08/08/181957 by NORBERTO CANCINO MD Gabapentin (Gabapentin ) 300 Mg Capsule, 300 MG PO TID for NEUROGENIC PAIN, #30 Prescribed by: Lore Russo APRN on 04/10/18 1655 Last Action: Continued on 08/08/181958 by NORBERTO CANCINO MD Gabapentin (Neurontin ) 100 Mg Capsule, 100 MG PO TID for NEUROGENIC PAIN for 30 Days, #90 Prescribed by: RICKY HUGHES on 08/10/18 0848 Glipizide (Glipizide) 5 Mg Tablet, 5 MG PO BID, #60 (Reported) Entered as Reported by: JAYASHREE LOPEZ on 10/13/14 1847 Last Action: Continued on 08/08/181957 by NORBERTO CANCINO MD Hydralazine Hcl (Hydralazine Hcl) 25 Mg Tablet, 25 MG PO TID for htn MDD 1, #90 Prescribed by: RICKY HUGHES on 08/10/18 0846 Hydrocodone/Acetaminophen (Lorcet 5-325 mg Tablet) 1 Each Tablet, 1 EACH PO BID for pain, #20 Prescribed by: RICKY HUGHES on 08/10/18 0848 Insulin Glargine,Hum.rec.anlog (Lantus Solostar) 100 Unit/1 Ml Insuln.pen, 15 UNITS SQ QHS for dm 2 MDD 1 for 30 Days Prescribed by: RICKY HUGHES on 08/10/18 0846 Losartan Potassium (Cozaar ) 50 Mg Tablet, 50 MG PO DAILY, #30 Prescribed by: SHAUN MARTÍNEZ on 05/20/15902 Last Action: Continued on 08/08/181957 by NORBERTO CANCINO MD Metformin Hcl (Glucophage) 500 Mg Tablet, 1,000 MG PO BIDWMEALS, #60 Prescribed by: SHAUN MARTÍNEZ on 05/20/15902 Last Action: Converted on 08/08/181957 by NORBERTO CANCINO MD Pantoprazole Sodium (Pantoprazole Sodium) 40 Mg Tablet.dr, 40 MG PO DAILYAC, #30 Prescribed by: SHAUN MARTÍNEZ on 05/20/15909 Last Action: Continued on 08/08/181957 by NORBERTO CANCINO MD Prednisone (Prednisone) 20 Mg Tablet, 20 MG PO DAILY, #3 Prescribed by: SHAUN MARTÍNEZ on 05/20/15902 Last Action: HELD on 08/08/181957 by NORBERTO CANCINO MD Prednisone (Prednisone) 50 Mg Tablet, 1 TAB PO DAILY, #5 Prescribed by: JAMES MÉNDEZ D.O. on 03/03/18517 Last Action: HELD on 08/08/181957 by NORBERTO CANCINO MD Simvastatin (Simvastatin) 10 Mg Tablet, 10 MG PO HS for FOR CHOLESTEROL, #30 Ref 0 (Reported) Entered as Reported by: JAYASHREE LOPEZ on 10/13/141846 Last Action: Continued on 08/08/181957 by NORBERTO CANCINO MD Sitagliptin Phosphate (Januvia) 100 Mg Tablet, 100 MG PO DAILY, (Reported) Entered as Reported by: JAYASHREE LOPEZ on 10/13/141846 Last Action: Converted on 08/08/181957 by NORBERTO CANCINO MD Trazodone Hcl (Trazodone Hcl) 100 Mg Tablet, 1 TAB PO QHS, #30 Ref 1 (Reported) Entered as Reported by: MARY KWAN on 08/13/14807 Last Action: Continued on 08/08/181957 by NORBERTO CANCINO MD Ziprasidone Hcl (Geodon) 80 Mg Capsule, 160 MG PO DAILYWSUP, (Reported) Entered as Reported by: JAYASHREE LOPEZ on 10/13/141846 Last Action: Converted on 08/08/181957 by NORBERTO CANCINO MD Scheduled PRN Albuterol Sulfate (Proair Hfa Inhaler) 8.5 Gm Hfa.aer.ad, 2 PUFF INH PRN Q6HRS PRN for SHORTNESS OF BREATH, #1 Ref 0 Prescribed by: JAMES MÉNDEZ D.O. on 03/03/18517 Benzonatate (Tessalon Perle) 100 Mg Capsule, 1 CAP PO TID PRN for COUGH, #21 Prescribed by: GABRIELE MORE D.O. on 03/06/18 0838 Last Action: Converted on 08/08/181958 by NORBERTO CANCINO MD Hydrocodone/Apap 5-325 ([place] 5-325 Tablet) 1 Each Tablet, 1-2 EACH PO PRN Q6HRS PRN for SEVERE PAIN, #15 as needed for pain Prescribed by: JAMES MÉNDEZ D.O. on 03/03/18517 Hyoscyamine Sulfate (Levsin-Sl) 0.125 Mg Tab.subl, 1-2 TAB SL PRN Q4HRS PRN for PAIN, #20 Ref 0 Prescribed by: SHAUN MAO D.O. on 01/02/1826 Last Action: HELD on 08/08/181957 by NORBERTO CANCINO MD Magnesium Citrate (Magnesium Citrate) 296 Ml Solution, 296 ML PO ONCE PRN for CONSTIPATION, #296 Prescribed by: KAREN WOO on 09/17/161751 Last Action: HELD on 08/08/181957 by NORBERTO CANCINO MD Magnesium Citrate (Magnesium Citrate) 296 Ml Solution, 296 ML PO ONCE PRN for CONSTIPATION, #296 Prescribed by: SHAUN MAO D.O. on 01/02/1826 Last Action: HELD on 08/08/181957 by NORBERTO CANCINO MD Morphine Sulfate (Morphine Sulfate) 15 Mg Tablet, 1 TAB PO PRN Q6-8HRS PRN for SEVERE PAIN, #8 Prescribed by: JILLIAN TILLMAN on 09/13/16107 Ondansetron (Zofran Odt) 4 Mg Tab.rapdis, 1 TAB SL PRN Q8HRS PRN for NAUSEA, #6 Prescribed by: JILLIAN TILLMAN on 09/13/16107 Sennosides/Docusate Sodium (Colace 2-in-1 Tablet) 1 Each Tablet, 1 EACH PO BID PRN for CONSTIPATION, #20 Prescribed by: SHAUN MAO D.O. on 01/02/18 0027 Last Action: Continued on 08/08/181957 by NORBERTO CANCINO MD Tramadol Hcl (Tramadol Hcl) 50 Mg Tablet, 50 MG PO Q6H PRN for PAIN, (Reported) Entered as Reported by: JAYASHREE LOPEZ on 10/13/147 Last Action: Continued on 08/08/181957 by MD ELLEN LALA CHERRIE Y MD August 10, 2018 08:53
[2018-08-10] MEDS: ENOXAPARIN 40 MG/0.4 ML SYRINGE. SQ SCH ×2 (08:55→20:53)
[2018-08-10] MEDS: hydrALAZINE 25 MG TABLET PO SCH ×3 (08:56→20:51)
[2018-08-10] MEDS: ASPIRIN CHEWABLE 81 MG TABLET. PO SCH (08:56)
[2018-08-10] MEDS: LOSARTAN POTASSIUM 50 MG TABLET. PO SCH (08:56)
[2018-08-10] MEDS: LINAGLIPTIN 5 MG TABLET PO SCH (08:56)
[2018-08-10] MEDS: SENNOSIDES/DOCUSATE 8.6/50MG TABLET. PO SCH ×2 (08:56→20:50)
[2018-08-10] MEDS: metFORMIN 500 MG TABLET PO SCH ×2 (08:56→16:47)
[2018-08-10] MEDS: glipiZIDE 5 MG TABLET PO SCH ×2 (08:56→16:47)
[2018-08-10 11:00] VITALS: BP 150/77
[2018-08-10] MEDS ORDERED: INSULIN LISPRO 300 UNITS/3 ML INSULN.PEN. SQ ONE (12:15)
--- NOTE | 2018-08-10 12:20 | NUR ---
SS following up with discharge planning. PT/OT evaluated and recommending senior living unit. SS awaiting PT/OT notes at this time. SS met with pt and discussed senior living facilities in network with her insurance. Pt agreeable to senior living unit at [facility]. SS will phone and fax referral to [facility] once PT/OT notes have been received. Physician notified.
[2018-08-10 15:00] VITALS: BP 113/51
--- NOTE | 2018-08-10 15:30 | NUR ---
SS following up with discharge planning. SS phoned and faxed referral to [facility], ; fax [phone]. SS will await acceptance decision and insurance determination and will proceed accordingly with discharge planning.
[2018-08-10] MEDS ORDERED: ALPRAZolam 0.5 MG TABLET PO PRN (15:45)
--- NOTE | 2018-08-10 16:01 | NUR ---
SS following up with discharge planning. Pt accepted at [facility] pending insurance authorization. SS will await insurance determination and will proceed accordingly.
[2018-08-10] MEDS ORDERED: INSULIN LISPRO 300 UNITS/3 ML INSULN.PEN. SQ SCH (17:00)
[2018-08-10 19:42] VITALS: BP 147/78
[2018-08-10] MEDS: SIMVASTATIN 10 MG TABLET PO SCH (20:51)
[2018-08-10] MEDS ORDERED: INSULIN GLARGINE 300 UNITS/3 ML INSULN.PEN. SQ SCH (21:00)
[2018-08-10 23:49] VITALS: BP 151/55
[2018-08-11 07:00] VITALS: BP 151/77
[2018-08-11] MEDS: ALBUTEROL SULFATE 2.5 MG/3 ML NEBU. NEB SCH ×3 (07:06→15:24)
[2018-08-11] MEDS: BUDESONIDE 0.5 MG/2 ML NEBU. NEB SCH (07:06)
[2018-08-11] MEDS: PANTOPRAZOLE 40 MG TABLET.DR. PO SCH (07:37)
[2018-08-11] MEDS: metFORMIN 500 MG TABLET PO SCH ×2 (09:11→16:35)
[2018-08-11] MEDS: ASPIRIN CHEWABLE 81 MG TABLET. PO SCH (09:13)
[2018-08-11] MEDS: hydrALAZINE 25 MG TABLET PO SCH ×2 (09:13→15:53)
[2018-08-11] MEDS: LOSARTAN POTASSIUM 50 MG TABLET. PO SCH (09:14)
[2018-08-11] MEDS: ENOXAPARIN 40 MG/0.4 ML SYRINGE. SQ SCH (09:15)
[2018-08-11] MEDS: glipiZIDE 5 MG TABLET PO SCH ×2 (09:15→16:35)
[2018-08-11] MEDS: SENNOSIDES/DOCUSATE 8.6/50MG TABLET. PO SCH (09:15)
[2018-08-11] MEDS: LINAGLIPTIN 5 MG TABLET PO SCH (09:15)
[2018-08-11] MEDS: INSULIN LISPRO 300 UNITS/3 ML INSULN.PEN. SQ SCH ×3 (09:16→16:38)
--- NOTE | 2018-08-11 09:23 | SNU/HH DC ---
DISCHARGE WITH HOME HEALTH DISCHARGE INFORMATION: Discharge Date: August 11, 2018 Final Diagnosis: Problems Medical Problems: (1) Bed bug bite Status: Acute (2) Elevated blood pressure reading Status: Acute (3) Hyperglycemia due to type 2 diabetes mellitus Status: Acute Condition on Discharge: Stable CODE STATUS: Code Status: Full HOME HEALTH: Face to Face: I certify this patient is under my care and that I, or a nurse practitioner or physician's property assistant working with me, had a face to face encounter that meets the physician face to face encounter requirements with this patient on []. Medical Complications: DM, Falls RN For Eval/Treatment: Yes Physical Therapy For: Evalulation/Treatment Occupational Therapy For: Evaluation/Treatment Speech Language Pathology For: Evaluation/Treatment Home Health Aide For: Self-care FINANCIAL SERVICES TECHNICIAN For: Community Resources Pt Meets Homebound Status: Unsteady balance w/ amb, POST DISCHARGE ORDERS: Activity Instructions for Disc: Resume previous activity Weight Bearing Status after Di: As tolerated DIET AFTER DISCHARGE: ADA CHECKS AFTER DISCHARGE: Checks after discharge: Check blood press - daily, Check blood sugar, ac/hs FOLLOW-UP: PCP to follow Home Health: Our PT recs SNU, she initially agreed then refused, FYI to RN Follow up with: pcp 1 mo re DM uncontrolled - needed to start [place] qhs TREATMENT/EQUIPMENT ORDERS: Adaptive Equipment Issued: None CERTIFICATION STATEMENT: Certification Statement: Certification Statement: Based on the above finding, I certify that this patient is confined to the home and needs intermittent detention care, physical therapy and/or speech therapy, or continues to need occupational therapy.~ This patient is under my care, and I have initiated the establishment of the plan of care.~ This patient will be followed by myself or a community physician who will periodically review the plan of care. Home Meds Active Scripts Hydrocodone/Acetaminophen (Lorcet 5-325 mg Tablet) 1 Each Tablet, 1 EACH PO BID for pain, #20 TAB Prov:RICKY HUGHES MD 08/10/18 Gabapentin (NEURONTIN ) 100 Mg Capsule, 100 MG PO TID for NEUROGENIC PAIN for 30 Days, #90 CAP Prov:RICKY HUGHES MD 08/10/18 Insulin Glargine,Hum.rec.anlog (LANTUS SOLOSTAR) 100 Unit/1 Ml Insuln.pen, 15 UNITS SQ QHS for dm 2 MDD 1 for 30 Days, EACH Prov:RICKY HUGHES MD 08/10/18 Hydralazine Hcl (HYDRALAZINE HCL) 25 Mg Tablet, 25 MG PO TID for htn MDD 1, #90 TAB Prov:RICKY HUGHES MD 08/10/18 Gabapentin (GABAPENTIN ) 300 Mg Capsule, 300 MG PO TID for NEUROGENIC PAIN, #30 CAP Prov:MUTUNGACOURTNEY POT RELINER 04/10/18 Benzonatate (TESSALON PERLE) 100 Mg Capsule, 1 CAP PO TID PRN for COUGH, #21 CAP Prov:GABRIELE MORE Jr. DO 03/06/18 Azithromycin (ZITHROMAX) 250 Mg Tablet, 1 PKG PO UD, #6 TAB Prov:GABRIELE MORE Jr. DO 03/06/18 Albuterol Sulfate (PROAIR HFA INHALER) 8.5 Gm Hfa.aer.ad, 2 PUFF INH PRN Q6HRS PRN for SHORTNESS OF BREATH, #1 INHALER 0 Refills Prov:JAMES MÉNDEZ DO 03/03/18 Hydrocodone/Apap 5-325 ([place] 5-325 TABLET) 1 Each Tablet, 1-2 EACH PO PRN Q6HRS PRN for SEVERE PAIN, #15 as needed for pain Prov:JAMES MÉNDEZ DO 03/03/18 Prednisone (PREDNISONE) 50 Mg Tablet, 1 TAB PO DAILY, #5 TAB Prov:JAMES MÉNDEZ DO 03/03/18 Diclofenac Sodium (DICLOFENAC SODIUM) 50 Mg Tablet.dr, 1 TAB PO BID, #20 TAB 0 Refills Prov:JEFFERY CALLES MD 02/07/18 Sennosides/Docusate Sodium (Colace 2-in-1 Tablet) 1 Each Tablet, 1 EACH PO BID PRN for CONSTIPATION, #20 TAB Prov:SHAUN MAO DO 01/02/18 Magnesium Citrate (MAGNESIUM CITRATE) 296 Ml Solution, 296 ML PO ONCE PRN for CONSTIPATION, #296 ML Prov:SHAUN MAO DO 01/02/18 Hyoscyamine Sulfate (LEVSIN-SL) 0.125 Mg Tab.subl, 1-2 TAB SL PRN Q4HRS PRN for PAIN, #20 TAB 0 Refills Prov:SHAUN MAO DO 01/02/18 Magnesium Citrate (MAGNESIUM CITRATE) 296 Ml Solution, 296 ML PO ONCE PRN for CONSTIPATION, #296 ML Prov:KAREN WOO MD 09/17/16 Ondansetron (ZOFRAN ODT) 4 Mg Tab.rapdis, 1 TAB SL PRN Q8HRS PRN for NAUSEA, #6 TAB Prov:JILLIAN TILLMAN MD 09/13/16 Morphine Sulfate (MORPHINE SULFATE) 15 Mg Tablet, 1 TAB PO PRN Q6-8HRS PRN for SEVERE PAIN, #8 TAB Prov:JILLIAN TILLMAN MD 09/13/16 Pantoprazole Sodium (PANTOPRAZOLE SODIUM) 40 Mg Tablet.dr, 40 MG PO DAILYAC, #30 Prov:SHAUN MARTÍNEZ MD 05/20/15 Prednisone (PREDNISONE) 20 Mg Tablet, 20 MG PO DAILY, #3 Prov:SHAUN MARTÍNEZ MD 05/20/15 Metformin Hcl (GLUCOPHAGE) 500 Mg Tablet, 1000 MG PO BIDWMEALS, #60 Prov:SHAUN MARTÍNEZ MD 05/20/15 Losartan Potassium (COZAAR ) 50 Mg Tablet, 50 MG PO DAILY, #30 Prov:SHAUN MARTÍNEZ MD 05/20/15 Cefpodoxime Proxetil (CEFPODOXIME PROXETIL) 200 Mg Tablet, 200 MG PO BID, #14 Prov:SHAUN MARTÍNEZ MD 05/20/15 Reported Medications Ziprasidone Hcl (GEODON) 80 Mg Capsule, 160 MG PO DAILYWSUP 10/13/14 Tramadol Hcl (TRAMADOL HCL) 50 Mg Tablet, 50 MG PO Q6H PRN for PAIN, TAB 10/13/14 Aspirin (ASPIRIN) 81 Mg Tab.chew, 81 MG PO DAILY, TAB.CHEW 10/13/14 Sitagliptin Phosphate (JANUVIA) 100 Mg Tablet, 100 MG PO DAILY, TAB 10/13/14 Simvastatin (SIMVASTATIN) 10 Mg Tablet, 10 MG PO HS for FOR CHOLESTEROL, #30 TAB 0 Refills 10/13/14 Glipizide (GLIPIZIDE) 5 Mg Tablet, 5 MG PO BID, #60 10/13/14 Budesonide/Formoterol Fumarate (SYMBICORT 160-4.5 MCG INHALER) 10.2 Gm Hfa.aer.ad, 2 PUFF IH BID, #10.6 GM 3 Refills 08/13/14 Albuterol Sulfate (ALBUTEROL SULFATE HFA INHALER) 8.5 Gm Hfa.aer.ad, 2 PUFF INH Q4HRS for FOR ASTHMA, INHALER 0 Refills 08/13/14 Trazodone Hcl (TRAZODONE HCL) 100 Mg Tablet, 1 TAB PO QHS, #30 TAB 1 Refill 08/13/14 RICKY HUGHES MD August 11, 2018 09:23
--- NOTE | 2018-08-11 09:24 | PDOC ---
Provider Note Provider Note DC summary done yesterday No change in meds The only addendum I have is physical therapy recommended SNU, she was initially requesting that to be in SNU now changed her mind. She would rather go home with home health with her boyfriend and her case management in assisted living will take care of SNU if she decides to push through. ALmost left AMA yesterday All Rx on chart Patient seen and examined RICKY HUGHES MD August 11, 2018 09:24
[2018-08-11 11:00] VITALS: BP 146/86
[2018-08-11 15:00] VITALS: BP 135/78
[2018-08-11 15:53] VITALS: BP 135/78
--- NOTE | 2018-08-11 18:00 | NUR ---
Discharge Note: RENA [facility]OTHERS G[facility]INER Discharge instructions and discharge home medications reviewed with Patient and a copy given. All questions have been answered and understanding verbalized. The following instructions and handouts were given: Hyperglycemia, How and where to give insulin injections, blood sugar monitoring, diabetes meal planning guide. Discontinued lines and drains: peripheral IV removed. catheter intact. no complications. Patient discharged to home with home health via to [facility] transportation. This nurse showed pt. how to use glucometer, stick finger, administer insulin, and read/follow diabetic meal planning guide. This nurse walked pt. through process verbally 3 times and had pt. physically demonstrate how to check blood sugar and administer insulin 3 times. This nurse called [facility] for a glucometer and strips per verbal orders from MD. Pt. will have [facility] follow.
== END 2018-08-11 18:08 | disposition home health service (06) | DRG 638 ==
LOC: ER 15:00 → 5 NORTH 17:15
PROVIDERS: ADMIT Internal Medicine; ATTEND Internal Medicine
DX: E11.00 Type 2 diabetes mellitus with hyperosmolarity without nonketotic hyperglycemic-hyperosmolar coma (NKHHC) (principal); Z68.41 Body mass index [BMI] 40.0-44.9, adult; J44.9 Chronic obstructive pulmonary disease, unspecified; E66.9 Obesity, unspecified; F17.210 Nicotine dependence, cigarettes, uncomplicated; F32.9 Major depressive disorder, single episode, unspecified; I10 Essential (primary) hypertension; K21.9 Gastro-esophageal reflux disease without esophagitis; G47.00 Insomnia, unspecified; W57.XXXA Bitten or stung by nonvenomous insect and other nonvenomous arthropods, initial encounter; Z79.51 Long term (current) use of inhaled steroids; Z79.82 Long term (current) use of aspirin; Z79.899 Other long term (current) drug therapy; Z83.3 Family history of diabetes mellitus; Z79.4 Long term (current) use of insulin; Z90.49 Acquired absence of other specified parts of digestive tract; Z71.6 Tobacco abuse counseling
CPT/HCPCS: 36415; 80048; 80053; 81001; 82962; 83036; 85025; 94640; 96361; 96374; J1650; J1815; J7030; J7613; J7626; 97116; 99285-25

== ENCOUNTER 2018-09-04 00:27 | Emergency (ER) | payer OTHER ==
[~2018-09-04] VITALS: Ht 162.6 cm; Wt 104.8 kg
[~2018-09-04 00:27] MED LIST changes: +GABA-585 PO; +HYDR-2815 PO; +HYDR-2868 PO; +INSU100I13 SQ
[2018-09-04] MEDS ORDERED: KETOROLAC 15 MG/ML VIAL. IV ONE (01:15)
[2018-09-04] MEDS ORDERED: ORPHENADRINE CITRATE 60 MG/2 ML VIAL. IV ONE (01:15)
[2018-09-04 02:03] LABS: BILIRUBIN,URINE NEGATIVE (NEG); CLARITY,URINE CLEAR; COLOR,URINE YELLOW; NITRITE,URINE NEGATIVE (NEG); PH,URINE 5.5; PROTEIN,URINE NEGATIVE (NEG-TRACE); UROBILINOGEN,URINE 0.2 mg/dL (0.2 mg/dL)
[2018-09-04 02:13] LABS: BACTERIA,URINE FEW /HPF (0-FEW); SQUAMOUS EPITHELIAL CELL,UR OCC /LPF
[2018-09-04 02:18] LABS: BARBITURATES NEG (NEG); BENZODIAZEPINES NEG (NEG); CANNABINOIDS NEG (NEG); COCAINE NEG (NEG); METHADONE NEG (NEG); OPIATES NEG (NEG); PHENCYCLIDINE NEG (NEG)
[2018-09-04 02:20] LABS: AMPHETAMINE/METHAMPHETAMINE NEG (NEG)
--- NOTE | 2018-09-04 02:25 | RAD ---
RS Compliance Statement: One or more of the following individualized dose reduction techniques were utilized for this examination: 1. Automated exposure control 2. Adjustment of the mA and/or kV according to patient size 3. Use of iterative reconstruction technique CT HEAD AND CERVICAL SPINE WITHOUT CONTRAST History: Headache and neck pain after fall. Comparison: None. Procedure: Axial images are obtained of the head from the skull base through the vertex without IV contrast. Noncontrast helical CT of the cervical spine was performed. Axial, sagittal, and coronal reconstructions were obtained. Findings: The ventricles and sulci are normal for the patient's age. There is mild supratentorial white matter hypoattenuation. This is a nonspecific finding but is commonly due to chronic small vessel ischemic disease in a patient of this age. No mass-effect, midline shift, hemorrhage or obvious acute infarction is identified. Basilar cisterns are patent. Bone windows demonstrate no significant calvarial abnormality. The visualized paranasal sinuses are clear. Mastoid air cells are well aerated. There is no evidence of acute fracture or acute malalignment of the cervical spine. No perched or jumped facet joints. Facet joints are mildly hypertrophic. Minimal grade 1 retrolisthesis of C3 on C4. The alignment is otherwise maintained. There is disc space narrowing and degenerative endplate spurring that is most advanced at C6/C7. The craniovertebral junction is intact. Uncinate process hypertrophy of C5/C6 and C6/C7. There are moderate bilateral carotid artery calcifications. IMPRESSION: 1. No acute intracranial abnormality. 2. No acute fracture of the cervical spine. Electronically signed by: Omid Wesley MD (09/04/2018 2:22 AM) [facility]
--- NOTE | 2018-09-04 02:32 | PHYS DOC ---
Past Medical History Past Medical History: Asthma, Bipolar, Depression, Diabetes-Type II Additional Past Medical Histor: PYLEONEPHRITIS, INSOMNIA, MR Past Surgical History: No Surgical History Alcohol Use: Occasionally Drug Use: None Adult General Chief Complaint Chief Complaint: MECHANICAL FALL HPI HPI Patient is a 57 year old [f__sex] who presents with [] Review of Systems Review of Systems Constitutional: Denies fever or chills [] Eyes: Denies change in visual acuity, redness, or eye pain [] HENT: Denies nasal congestion or sore throat [] Respiratory: Denies cough or shortness of breath [] Cardiovascular: No additional information not addressed in HPI [] GI: Denies abdominal pain, nausea, vomiting, bloody stools or diarrhea [] : Denies dysuria or hematuria [] Musculoskeletal: Denies back pain or joint pain [] Integument: Denies rash or skin lesions [] Neurologic: Denies headache, focal weakness or sensory changes [] Endocrine: Denies polyuria or polydipsia [] All other systems were reviewed and found to be within normal limits, except as documented in this note. Current Medications Current Medications Current Medications Medications (Trade) Dose Ordered Sig/Austin Start Time Stop Time Status Last Admin Dose Admin Ketorolac Tromethamine (Toradol 15mg Vial) 15 mg 1X ONCE 09/04/18 01:15 09/04/18 01:16 DC 09/04/18 02:29 15 MG Magnesium Chloride (Mag Delay) 64 mg 1X ONCE 09/04/18 04:00 09/04/18 04:01 DC 09/04/18 04:33 64 MG Orphenadrine Citrate (Norflex) 60 mg 1X ONCE 09/04/18 01:15 09/04/18 01:16 DC 09/04/18 02:29 60 MG Allergies Allergies Allergies Coded Allergies Type Severity Reaction Last Updated Verified No Known Drug Allergies 03/03/13 No Physical Exam Physical Exam Constitutional: Well developed, well nourished, no acute distress, non-toxic appearance. [] HENT: Normocephalic, atraumatic, bilateral external ears normal, oropharynx moist, no oral exudates, nose normal. [] Eyes: PERRLA, EOMI, conjunctiva normal, no discharge. [] Neck: Normal range of motion, no tenderness, supple, no stridor. [] Cardiovascular:Heart rate regular rhythm, no murmur [] Lungs & Thorax: Bilateral breath sounds clear to auscultation [] Abdomen: Bowel sounds normal, soft, no tenderness, no masses, no pulsatile masses. [] Skin: Warm, dry, no erythema, no rash. [] Back: No tenderness, no CVA tenderness. [] Extremities: No tenderness, no cyanosis, no clubbing, ROM intact, no edema. [] Neurologic: Alert and oriented X 3, normal motor function, normal sensory function, no focal deficits noted. [] Psychologic: Affect normal, judgement normal, mood normal. [] Current Patient Data Vital Signs Vital Signs Date Time Temp Pulse Resp B/P (MAP) Pulse Ox O2 Delivery O2 Flow Rate FiO2 09/04/18 03:46 90 09/04/18 00:33 98 09/04/18 00:32 98.2 18 167/91 (116) Room Air 98.2 Lab Values Laboratory Tests Test 09/04/18 01:50 09/04/18 02:25 Urine Collection Type Unknown Urine Color Yellow Urine Clarity Clear Urine pH 5.5 Urine Specific [place] 1.010 Urine Protein Negative mg/dL (NEG-TRACE) Urine Glucose (UA) 250 mg/dL (NEG) Urine Ketones (Stick) Negative mg/dL (NEG) Urine Blood Negative (NEG) Urine Nitrite Negative (NEG) Urine Bilirubin Negative (NEG) Urine Urobilinogen Dipstick 0.2 mg/dL (0.2 mg/dL) Urine Leukocyte Esterase Moderate (NEG) Urine RBC 1-2 /HPF (0-2) Urine WBC 1-4 /HPF (0-4) Urine Squamous Epithelial Cells Occ /LPF Urine Bacteria Few /HPF (0-FEW) Urine Opiates Screen Neg (NEG) Urine Methadone Screen Neg (NEG) Urine Barbiturates Neg (NEG) Urine Phencyclidine Screen Neg (NEG) Urine Amphetamine/Methamphetamine Neg (NEG) Urine Benzodiazepines Screen Neg (NEG) Urine Cocaine Screen Neg (NEG) Urine Cannabinoids Screen Neg (NEG) Urine Ethyl Alcohol Neg (NEG) White Blood Count 6.1 x10^3/uL (4.0-11.0) Red Blood Count 4.97 x10^6/uL (3.50-5.40) Hemoglobin 12.4 g/dL (12.0-15.5) Hematocrit 38.6 % (36.0-47.0) Mean Corpuscular Volume 78 fL (79-100) L Mean Corpuscular Hemoglobin 25 pg (25-35) Mean Corpuscular Hemoglobin Concent 32 g/dL (31-37) Red Cell Distribution Width 14.4 % (11.5-14.5) Platelet Count 230 x10^3/uL (140-400) Neutrophils (%) (Auto) 58 % (31-73) Lymphocytes (%) (Auto) 28 % (24-48) Monocytes (%) (Auto) 9 % (0-9) Eosinophils (%) (Auto) 4 % (0-3) H Basophils (%) (Auto) 1 % (0-3) Neutrophils # (Auto) 3.5 x10^3uL (1.8-7.7) Lymphocytes # (Auto) 1.7 x10^3/uL (1.0-4.8) Monocytes # (Auto) 0.6 x10^3/uL (0.0-1.1) Eosinophils # (Auto) 0.3 x10^3/uL (0.0-0.7) Basophils # (Auto) 0.0 x10^3/uL (0.0-0.2) Sodium Level 138 mmol/L (136-145) Potassium Level 4.4 mmol/L (3.5-5.1) Chloride Level 102 mmol/L (98-107) Carbon Dioxide Level 29 mmol/L (21-32) Anion Gap 7 (6-14) Blood Urea Nitrogen 16 mg/dL (7-20) Creatinine 0.6 mg/dL (0.6-1.0) Estimated GFR (Cockcroft-Gault) 102.3 BUN/Creatinine Ratio 27 (6-20) H Glucose Level 262 mg/dL (70-99) H Lactic Acid Level 2.3 mmol/L (0.4-2.0) H Calcium Level 9.1 mg/dL (8.5-10.1) Magnesium Level 1.4 mg/dL (1.8-2.4) L Total Bilirubin 0.3 mg/dL (0.2-1.0) Aspartate Amino Transferase (AST) 22 U/L (15-37) Alanine Aminotransferase (ALT) 49 U/L (14-59) Alkaline Phosphatase 57 U/L (46-116) Creatine Kinase 74 U/L (26-192) Creatine Kinase MB (Mass) 1.8 ng/mL (0.0-3.6) Creatine Kinase MB Relative Index % (0-4) Troponin I Quantitative < 0.017 ng/mL (0.000-0.055) Total Protein 7.0 g/dL (6.4-8.2) Albumin 3.7 g/dL (3.4-5.0) Albumin/Globulin Ratio 1.1 (1.0-1.7) Laboratory Tests 09/04/18 02:25 Laboratory Tests 09/04/18 02:25 EKG EKG @0105 NSR at 100bpm, NO ST elevation, occasional PVC, Radiology/Procedures Radiology/Procedures [] Course & Med Decision Making Course & Med Decision Making Pertinent Labs and Imaging studies reviewed. (See chart for details) [] Dragon Disclaimer Dragon Disclaimer This electronic medical record was generated, in whole or in part, using a voice recognition dictation system. Departure Departure Impression: Primary Impression: Fall Additional Impressions: Hypomagnesemia Back pain Disposition: HOME, SELF-CARE Condition: STABLE Referrals: MARIELY DAS (PCP) Patient Instructions: Fall Prevention and Home Safety, Byql-bj-[id number], Hypomagnesemia, Thoracic Strain, Exyg-sm-Gulo Scripts Naproxen (NAPROXEN) 375 Mg Tablet 1 TAB PO TID PRN PRN for PAIN, #20 TAB Prov: SHAUN MAO DO 09/04/18 Orphenadrine Citrate (ORPHENADRINE CITRATE) 100 Mg Tablet.er 100 MG PO BID PRN for MUSCLE PAIN, #14 Prov: SHAUN MAO DO 09/04/18 Problem Qualifiers Primary Impression: Fall Encounter type: initial encounter Qualified Codes: W19.XXXA - Unspecified fall, initial encounter Additional Impressions: Back pain Back pain location: thoracic back pain Chronicity: acute Back pain laterality: bilateral Qualified Codes: M54.6 - Pain in thoracic spine SHAUN MAO DO Sep 04, 2018 02:32
[2018-09-04 02:37] LABS: BASO % 1 % (0-3); EOS # 0.3 x10^3/uL (0.0-0.7); EOS % 4 % (0-3); HEMATOCRIT 38.6 % (36.0-47.0); HEMOGLOBIN 12.4 g/dL (12.0-15.5); LYMPH # 1.7 x10^3/uL (1.0-4.8); LYMPH % 28 % (24-48); MEAN CORPUSCULAR HEMOGLOBIN 25 pg (25-35); MEAN CORPUSCULAR HGB CONC 32 g/dL (31-37); MEAN CORPUSCULAR VOLUME 78 fL (79-100); MONO # 0.6 x10^3/uL (0.0-1.1); MONO % 9 % (0-9); NEUT # 3.5 x10^3uL (1.8-7.7); NEUT % 58 % (31-73); PLATELET COUNT 230 x10^3/uL (140-400); RED BLOOD COUNT 4.97 x10^6/uL (3.50-5.40); RED CELL DISTRIBUTION WIDTH 14.4 % (11.5-14.5); WHITE BLOOD COUNT 6.1 x10^3/uL (4.0-11.0)
--- NOTE | 2018-09-04 02:45 | RAD ---
PQRS Compliance Statement: One or more of the following individualized dose reduction techniques were utilized for this examination: 1. Automated exposure control 2. Adjustment of the mA and/or kV according to patient size 3. Use of iterative reconstruction technique CT THORACIC SPINE WO CONTRAST Clinical Indication: Back pain after fall. Comparison: None. TECHNIQUE: Helical CT imaging of the thoracic spine is performed without IV contrast. Findings: There is no acute fracture. The vertebral body height and alignment are maintained. There is endplate spurring, many levels are bridging. No significant disc space narrowing. No high-grade narrowing of the central canal is identified. No acute posterior rib abnormality. Respiratory motion artifact in the lungs. No lung consolidation. Centrally calcified nodule in the right lung apex is probably a granuloma. There is coronary artery disease. Partially calcified right paratracheal lymph nodes. IMPRESSION: No acute fracture or malalignment of the thoracic spine. Electronically signed by: Omdi Wesley MD (09/04/2018 2:43 AM) [facility]
[2018-09-04 03:01] LABS: CALCIUM 9.1 mg/dL (8.5-10.1); CREATININE 0.6 mg/dL (0.6-1.0); GFR 102.3; POTASSIUM 4.4 mmol/L (3.5-5.1)
[2018-09-04 03:07] LABS: ALBUMIN 3.7 g/dL (3.4-5.0); ALBUMIN/GLOBULIN RATIO 1.1 (1.0-1.7); MAGNESIUM 1.4 mg/dL (1.8-2.4); TOTAL BILIRUBIN 0.3 mg/dL (0.2-1.0)
[2018-09-04 03:14] LABS: CREATINE KINASE 74 U/L (26-192)
[2018-09-04] MEDS ORDERED: NAPR-695 PO (03:37)
[2018-09-04] MEDS ORDERED: ORPH100T PO (03:37)
[2018-09-04 03:46] VITALS: BP 133/59
[2018-09-04] MEDS ORDERED: MAGNESIUM CHLORIDE ER 64 MG TABLET.ER PO ONE (04:00)
--- NOTE | 2018-09-04 04:06 | EKG ---
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
== END 2018-09-04 04:35 | disposition home or self-care (01) ==
LOC: ER 00:27
DX: M54.6 Pain in thoracic spine (principal); E83.42 Hypomagnesemia; G89.11 Acute pain due to trauma; R51 Headache; M54.2 Cervicalgia; J45.909 Unspecified asthma, uncomplicated; F31.9 Bipolar disorder, unspecified; E11.9 Type 2 diabetes mellitus without complications; W18.39XA Other fall on same level, initial encounter; Y93.89 Activity, other specified; Y92.89 Other specified places as the place of occurrence of the external cause; Y99.8 Other external cause status
CPT/HCPCS: 36415; 70450; 72125; 72128; 80053; 80307; 81001; 82553; 83605; 83735; 84484; 85025; 87086; 93005; 96374; 96375; 99285; J1885; J2360

== ENCOUNTER 2018-10-13 08:29 | Emergency (ER) | payer OTHER ==
[~2018-10-13] VITALS: Ht 154.9 cm; Wt 89.4 kg
[~2018-10-13 08:29] MED LIST changes: +NAPR-695 PO; +ORPH100T PO; -PANT40TA5 PO; +PANT40TA77 PO
--- NOTE | 2018-10-13 08:35 | PHYS DOC ---
Past Medical History Past Medical History: Asthma, Bipolar, Depression, Diabetes-Type II Additional Past Medical Histor: PYLEONEPHRITIS, INSOMNIA, MR Past Surgical History: No Surgical History Alcohol Use: Occasionally Drug Use: None Adult General Chief Complaint Chief Complaint: SHORTNESS OF BREATH HPI HPI 57-year-old female presenting the emergency department with dyspnea over the past 48 hours. She states that her shortness of breath is worse when she exerts herself and improved with rest. She denies any pain. She denies nausea vomiting fevers or chills. She denies a cough. LOCATION lungs. duration intermittent. She states she is supposed to be on oxygen at home but was not hypoxic by EMS or here in the emergency department. She's not had oxygen at home for many months. She does not have her inhaler at home either. Past Medical History Past Medical History HTN, DM, Depression, Insomnia, GERD, Reactive airway disease Past Surgical History Past Surgical History: Appendectomy Family History Family History + DM Social History Smoke: <1 pack per day ALCOHOL: none Drugs: None Review of systems is negative for chest pain abdominal pain nausea vomiting diaphoresis fevers or chills. All other review of systems is negative. ED course: 57-year-old female presenting with shortness of breath. afebrile. 93% on 2 L initially. ekg and cxr and blood work ordered. EKG shows sinus rhythm with a regular rate. ST segments congruent. Not suggestive of ACS. Chest x-ray is within normal limits. Blood sugar is elevated. Otherwise chemistry panel unremarkable. Patient is feeling much better after nebulizers here in the emergency department. I do not want to initiate prednisone given the patient's blood sugars. Patient is saturating well on room air on reexamination in the mid 90s. We will discharge to follow up with PCP in one to 2 days.The patient has been examined and was not found to have an emergency medical condition. The patient was then discharged home in stable condition to follow up with their [place] [facility] physician over the next 1-2 days. They were to return if their symptoms worsened or if they were concerned for any reason. They were also instructed to return to the emergency department if they were unable to get the recommended and appropriate follow-up. [id number]-[id number] discharge instructions and return precautions were given. Patient's questions were answered to their satisfaction. Patient is comfortable with plan. Current Medications Current Medications Current Medications Medications (Trade) Dose Ordered Sig/Austin Start Time Stop Time Status Last Admin Dose Admin Albuterol/ Ipratropium (Duoneb) 3 ml 1X ONCE 10/13/18 09:00 10/13/18 09:01 DC 10/13/18 08:53 3 ML Prednisone (Prednisone) 50 mg 1X ONCE 10/13/18 09:15 10/13/18 09:16 UNV Allergies Allergies Allergies Coded Allergies Type Severity Reaction Last Updated Verified No Known Drug Allergies 03/03/13 No Physical Exam Physical Exam Constitutional: Well developed, well nourished, no acute distress, non-toxic appearance. [] HENT: Normocephalic, atraumatic, bilateral external ears normal, oropharynx moist, no oral exudates, nose normal. [] Eyes: PERRLA, EOMI, conjunctiva normal, no discharge. [] Neck: Normal range of motion, no tenderness, supple, no stridor. [] Cardiovascular:Heart rate regular rhythm, no murmur [] Lungs & Thorax: minimal wheezing in the lungs bilaterally. Abdomen: Bowel sounds normal, soft, no tenderness, no masses, no pulsatile masses. [] Skin: Warm, dry, no erythema, no rash. [] Back: No tenderness, no CVA tenderness. [] Extremities: No tenderness, no cyanosis, no clubbing, ROM intact, no edema. [] Neurologic: Alert and oriented X 3, normal motor function, normal sensory function, no focal deficits noted. [] Psychologic: Affect normal, judgement normal, mood normal. [] Current Patient Data Vital Signs Vital Signs Date Time Temp Pulse Resp B/P (MAP) Pulse Ox O2 Delivery O2 Flow Rate FiO2 10/13/18 08:54 92 Room Air 10/13/18 08:31 98.1 88 20 133/66 (88) 2.0 98.1 Lab Values Laboratory Tests Test 10/13/18 08:38 White Blood Count 6.7 x10^3/uL (4.0-11.0) Red Blood Count 5.04 x10^6/uL (3.50-5.40) Hemoglobin 12.3 g/dL (12.0-15.5) Hematocrit 38.9 % (36.0-47.0) Mean Corpuscular Volume 77 fL (79-100) L Mean Corpuscular Hemoglobin 24 pg (25-35) L Mean Corpuscular Hemoglobin Concent 32 g/dL (31-37) Red Cell Distribution Width 14.7 % (11.5-14.5) H Platelet Count 282 x10^3/uL (140-400) Neutrophils (%) (Auto) 70 % (31-73) Lymphocytes (%) (Auto) 20 % (24-48) L Monocytes (%) (Auto) 6 % (0-9) Eosinophils (%) (Auto) 3 % (0-3) Basophils (%) (Auto) 1 % (0-3) Neutrophils # (Auto) 4.7 x10^3/uL (1.8-7.7) Lymphocytes # (Auto) 1.3 x10^3/uL (1.0-4.8) Monocytes # (Auto) 0.4 x10^3/uL (0.0-1.1) Eosinophils # (Auto) 0.2 x10^3/uL (0.0-0.7) Basophils # (Auto) 0.1 x10^3/uL (0.0-0.2) Sodium Level 137 mmol/L (136-145) Potassium Level 5.4 mmol/L (3.5-5.1) H Chloride Level 98 mmol/L (98-107) Carbon Dioxide Level 29 mmol/L (21-32) Anion Gap 10 (6-14) Blood Urea Nitrogen 20 mg/dL (7-20) Creatinine 0.9 mg/dL (0.6-1.0) Estimated GFR (Cockcroft-Gault) 64.1 Glucose Level 425 mg/dL (70-99) H Calcium Level 9.0 mg/dL (8.5-10.1) Total Bilirubin 0.2 mg/dL (0.2-1.0) Direct Bilirubin 0.1 mg/dL (0.0-0.2) Aspartate Amino Transferase (AST) 21 U/L (15-37) Alanine Aminotransferase (ALT) 53 U/L (14-59) Alkaline Phosphatase 64 U/L (46-116) Troponin I Quantitative < 0.017 ng/mL (0.000-0.055) UD-Abl-P-Type Natriuretic Peptide 137 pg/mL (0-124) H Total Protein 7.3 g/dL (6.4-8.2) Albumin 3.5 g/dL (3.4-5.0) Lipase 379 U/L (73-393) Laboratory Tests 10/13/18 08:38 Laboratory Tests 10/13/18 08:38 EKG EKG [] Radiology/Procedures Radiology/Procedures [] Course & Med Decision Making Course & Med Decision Making Pertinent Labs and Imaging studies reviewed. (See chart for details) [] Dragon Disclaimer Dragon Disclaimer This electronic medical record was generated, in whole or in part, using a voice recognition dictation system. Departure Departure Impression: Primary Impression: COPD exacerbation Disposition: HOME, SELF-CARE Condition: IMPROVED Referrals: MARIELY DAS (PCP) Patient Instructions: Chronic Obstructive Pulmonary Disease Exacerbation Additional Instructions: Thank you for allowing us to participate in your care today. Return to the emergency department you have any new or worsening symptoms, or if you are concerned for any reason. Return to emergency department if you have any new or concerning symptoms including but not limited to fever, chills, nausea, vomiting, intractable pain, any new rashes, chest pain, shortness of air, uncontrolled bleeding, difficulty breathing, and/or vision loss. Follow up with your primary care physician within 1-2 days. Call your Primary Doctor tomorrow and inform them of your visit today. If you do not have a primary care provider we are happy to provide you with a list of our primary care providers contact information. This condition should be evaluated by your primary care physician and any recommended consulting services for continued management within 2 days after discharge. If at any time, you are having difficulty getting into your primary care doctor or a specialist, return to the emergency department. Scripts Albuterol Sulfate (PROAIR HFA INHALER) 8.5 Gm Hfa.aer.ad 1 PUFF INH PRN Q6HRS PRN for SHORTNESS OF BREATH, #1 INHALER 0 Refills Prov: JILLIAN TILLMAN MD 10/13/18 JILLIAN TILLMAN MD Oct 13, 2018 08:35
[2018-10-13 08:47] LABS: BASO # 0.1 x10^3/uL (0.0-0.2); BASO % 1 % (0-3); EOS # 0.2 x10^3/uL (0.0-0.7); EOS % 3 % (0-3); HEMATOCRIT 38.9 % (36.0-47.0); HEMOGLOBIN 12.3 g/dL (12.0-15.5); LYMPH # 1.3 x10^3/uL (1.0-4.8); LYMPH % 20 % (24-48); MEAN CORPUSCULAR HEMOGLOBIN 24 pg (25-35); MEAN CORPUSCULAR HGB CONC 32 g/dL (31-37); MEAN CORPUSCULAR VOLUME 77 fL (79-100); MONO # 0.4 x10^3/uL (0.0-1.1); MONO % 6 % (0-9); NEUT # 4.7 x10^3/uL (1.8-7.7); NEUT % 70 % (31-73); PLATELET COUNT 282 x10^3/uL (140-400); RED BLOOD COUNT 5.04 x10^6/uL (3.50-5.40); RED CELL DISTRIBUTION WIDTH 14.7 % (11.5-14.5); WHITE BLOOD COUNT 6.7 x10^3/uL (4.0-11.0)
[2018-10-13 08:57] LABS: CREATININE 0.9 mg/dL (0.6-1.0); GFR 64.1; POTASSIUM 5.4 mmol/L (3.5-5.1)
[2018-10-13] MEDS ORDERED: IPRATRPIUM/ALBUTEROL 0.5/2.5MG 3 ML NEBU. NEB ONE (09:00)
--- NOTE | 2018-10-13 09:04 | RAD ---
AP chest. HISTORY: Chronic short of air, COPD AP view was taken of the chest. There is a granuloma in the right apex. The lungs are free of infiltrates. Heart is normal in size. There is no effusion. IMPRESSION: 1. No acute chest disease. Electronically signed by: Kleber Restrepo MD (10/13/2018 9:01 AM) [facility]
[2018-10-13 09:05] LABS: ALBUMIN 3.5 g/dL (3.4-5.0); DIRECT BILIRUBIN 0.1 mg/dL (0.0-0.2); TOTAL BILIRUBIN 0.2 mg/dL (0.2-1.0); TOTAL PROTEIN 7.3 g/dL (6.4-8.2)
[2018-10-13] MEDS ORDERED: predniSONE 20 MG TABLET PO ONE (09:15)
[2018-10-13] MEDS ORDERED: ALBU2.5V8 INH (09:15)
[2018-10-13 09:55] VITALS: BP 133/56
--- NOTE | 2018-10-13 13:55 | EKG ---
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
== END 2018-10-13 10:30 | disposition home or self-care (01) ==
LOC: ER 08:29
DX: J44.1 Chronic obstructive pulmonary disease with (acute) exacerbation (principal); F31.9 Bipolar disorder, unspecified; E11.9 Type 2 diabetes mellitus without complications; K21.9 Gastro-esophageal reflux disease without esophagitis; I10 Essential (primary) hypertension; F17.200 Nicotine dependence, unspecified, uncomplicated
CPT/HCPCS: 36415; 71045; 80048; 80076; 83690; 83880; 84484; 85025; 85379; 93005; 94640; 99285; J7620

== ENCOUNTER 2018-11-24 10:36 | Inpatient (IN) | payer OTHER ==
[~2018-11-24] VITALS: Ht 152.4 cm; Wt 93.2 kg
[2018-11-24] VITALS (15 sets, daily range): BP systolic 82–156; BP diastolic 64–82
[2018-11-24] MEDS ORDERED: IPRATRPIUM/ALBUTEROL 0.5/2.5MG 3 ML NEBU. NEB ONE ×2 (11:15→12:45)
[2018-11-24 11:17] LABS: BASE EXCESS ABG 8 mmol/L (-3-3); HCO3 ABG 38 mmol/L (21-28); SAT O2 ABG 74 % (92-99)
[2018-11-24 11:19] LABS: PCO2 ABG 87 mmHg (35-46); PO2 ABG 45 mmHg (65-108)
[2018-11-24 11:20] LABS: FIO2 ABG 21
[2018-11-24 11:48] LABS: AMPHETAMINE/METHAMPHETAMINE NEG (NEG); BARBITURATES NEG (NEG); BENZODIAZEPINES NEG (NEG); CANNABINOIDS NEG (NEG); COCAINE NEG (NEG); METHADONE NEG (NEG); OPIATES NEG (NEG); PHENCYCLIDINE NEG (NEG)
--- NOTE | 2018-11-24 11:59 | RAD ---
CT scan of the head without contrast 11/24/2018 Clinical History: Altered mental status. Technique: Unenhanced, contiguous, 5 mm axial sections were obtained through the head. One or more of the following individualized dose reduction techniques were utilized for this study: 1. Automated exposure control. 2. Adjustment of the mA and/or kV according to patient size. 3. Use of iterative reconstruction technique. Findings: Comparison study is dated 09/04/2018. There is mild generalized parenchymal atrophy. Areas of decreased attenuation are seen within the periventricular and subcortical white matter of both cerebral hemispheres consistent with areas of small vessel ischemic disease. No acute parenchymal abnormality is seen. No extra-axial fluid collection is noted. No skull fracture is seen. Impression: No acute intracranial abnormality is seen. Electronically signed by: Clarke Loredo MD (11/24/2018 11:56 AM) [facility]
[2018-11-24 12:04] LABS: BILIRUBIN,URINE NEGATIVE (NEG); CLARITY,URINE CLOUDY; COLOR,URINE YELLOW; NITRITE,URINE NEGATIVE (NEG); PH,URINE 5.5; PROTEIN,URINE 30 mg/dL (NEG-TRACE)
[2018-11-24 12:05] LABS: BACTERIA,URINE FEW /HPF (0-FEW); RBC,URINE OCC /HPF (0-2)
--- NOTE | 2018-11-24 12:13 | PDOC1 ---
History and Physical Date of Admission Date of Admission DATE: 11/24/18 TIME: 12:12 Identification/Chief Complaint Chief Complaint seen in er with family 58 year old female who was found unresponsive by the long term staff at the long term this morning. She had a history of MR, history of diabetic, on insulin. Patient nurse called EMS, they checked her blood sugar and it was 145. Patient was not on any narcotic, EMS decided to give her 2 mg of Narcan, that woke her up shortly but she became unresponsive again. They put her on a nonrebreather oxygen, brought her here for evaluation. Patient has history of COPD, she is on nebulizer treatment at the long term. She was a former smoker, they not sure that she smoked at the long term sisters think she is overmedicated at [place] Past Medical History Past Medical History Non-Ketotic Hyperglycemia in setting of uncontrolled DM Depression GERD COPD Tobacco Abuse Obesity BMI 44 Past Surgical History Past Surgical History: Appendectomy Family History Family History: Hypertension Social History Smoke: Quit ALCOHOL: none Drugs: None Current Medications Current Medications Current Medications Albuterol/ Ipratropium (Duoneb) 3 ml 1X ONCE NEB ; Start 11/24/18 at 11:15; Stop 11/24/18 at 11:17; Status DC Active Scripts Active Proair Hfa Inhaler (Albuterol Sulfate) 8.5 Gm Hfa.aer.ad 1 Puff INH PRN Q6HRS PRN Naproxen 375 Mg Tablet 1 Tab PO TID PRN PRN Orphenadrine Citrate 100 Mg Tablet.er 100 Mg PO BID PRN Lorcet 5-325 mg Tablet (Hydrocodone/Acetaminophen) 1 Each Tablet 1 Each PO BID Neurontin (Gabapentin) 100 Mg Capsule 100 Mg PO TID 30 Days Lantus Solostar (Insulin Glargine,Hum.rec.anlog) 100 Unit/1 Ml Insuln.pen 15 Units SQ QHS MDD 1 30 Days Hydralazine Hcl 25 Mg Tablet 25 Mg PO TID MDD 1 Tessalon Perle (Benzonatate) 100 Mg Capsule 1 Cap PO TID PRN Proair Hfa Inhaler (Albuterol Sulfate) 8.5 Gm Hfa.aer.ad 2 Puff INH PRN Q6HRS PRN Kerrick 5-325 Tablet (Acetaminophen/Hydrocodone Bitart) 1 Each Tablet 1-2 Each PO PRN Q6HRS PRN as needed for pain Diclofenac Sodium 50 Mg Tablet.dr 1 Tab PO BID Colace 2-in-1 Tablet (Sennosides/Docusate Sodium) 1 Each Tablet 1 Each PO BID PRN Levsin-Sl (Hyoscyamine Sulfate) 0.125 Mg Tab.subl 1-2 Tab SL PRN Q4HRS PRN Zofran Odt (Ondansetron) 4 Mg Tab.rapdis 1 Tab SL PRN Q8HRS PRN Pantoprazole Sodium (Pantoprazole Sodium) 40 Mg Tablet.dr 40 Mg PO DAILYAC Glucophage (Metformin Hcl) 500 Mg Tablet 1,000 Mg PO BIDWMEALS Cozaar (Losartan Potassium) 50 Mg Tablet 50 Mg PO DAILY Reported Aspirin 81 Mg Tab.chew 81 Mg PO DAILY Januvia (Sitagliptin Phosphate) 100 Mg Tablet 100 Mg PO DAILY Simvastatin 10 Mg Tablet 10 Mg PO HS Glipizide 5 Mg Tablet 5 Mg PO BID Symbicort 160-4.5 Mcg Inhaler (Budesonide/Formoterol Fumarate) 10.2 Gm Hfa.aer.ad 2 Puff IH BID Albuterol Sulfate Hfa Inhaler (Albuterol Sulfate) 8.5 Gm Hfa.aer.ad 2 Puff INH Q4HRS Allergies Allergies: Coded Allergies: No Known Drug Allergies (Unverified , 03/03/13) ROS Review of System could not obtain any review of systems because patient was not cooperative, being confused. General: YES: Fatigue PSYCHOLOGICAL ROS: YES: Disorientation Physical Exam Physical Exam Physical Exam Physical Exam Constitutional: Well developed, well nourished, in moderated distress, yelling and hollering, restless in bed. HENT: Normocephalic, atraumatic, bilateral external ears normal, oropharynx m oist, no oral exudates, nose normal. [] Eyes: PERRLA, EOMI, conjunctiva normal, no discharge. [] Neck: Normal range of motion, no tenderness, supple, no stridor. [] Cardiovascular: Sinus tachycardia, regular rhythm, no murmur [] Lungs & Thorax: Bilateral breath sounds equal but wheezing. ] Abdomen: Bowel sounds normal, soft, no tenderness, no masses, no pulsatile masses. [] Skin: Warm, dry, no erythema, no rash. [] Back: No tenderness, no CVA tenderness. [] Extremities: No tenderness, no cyanosis, no clubbing, ROM intact, no edema. [] Neurologic: patient moves all extremities, yelling and hollering but confused, disoriented to place, time and person. Psychologic: not able to evaluate. Vitals Vitals Vital Signs Date Time Temp Pulse Resp B/P (MAP) Pulse Ox O2 Delivery O2 Flow Rate FiO2 11/24/18 10:52 97.8 103 24 114/71 (85) 97 NonRebreather Mask 15.0 97.8 Labs Labs Laboratory Tests Test 11/24/18 11:00 11/24/18 11:32 O2 Saturation 74 % (92-99) Arterial Blood pH 7.26 (7.35-7.45) Arterial Blood pCO2 at Patient Temp 87 mmHg (35-46) Arterial Blood pO2 at Patient Temp 45 mmHg (65-108) Arterial Blood HCO3 38 mmol/L (21-28) Arterial Blood Base Excess 8 mmol/L (-3-3) FiO2 21 Urine Collection Type Unknown Urine Color Yellow Urine Clarity Cloudy Urine pH 5.5 Urine Specific [place] 1.015 Urine Protein 30 mg/dL (NEG-TRACE) Urine Glucose (UA) Negative mg/dL (NEG) Urine Ketones (Stick) Negative mg/dL (NEG) Urine Blood Small (NEG) Urine Nitrite Negative (NEG) Urine Bilirubin Negative (NEG) Urine Urobilinogen Dipstick 1.0 mg/dL (0.2 mg/dL) Urine Leukocyte Esterase Large (NEG) Urine RBC Occ /HPF (0-2) Urine WBC 5-10 /HPF (0-4) Urine Bacteria Few /HPF (0-FEW) Urine Opiates Screen Neg (NEG) Urine Methadone Screen Neg (NEG) Urine Barbiturates Neg (NEG) Urine Phencyclidine Screen Neg (NEG) Urine Amphetamine/Methamphetamine Neg (NEG) Urine Benzodiazepines Screen Neg (NEG) Urine Cocaine Screen Neg (NEG) Urine Cannabinoids Screen Neg (NEG) Urine Ethyl Alcohol Neg (NEG) Laboratory Tests Test 11/24/18 11:00 11/24/18 11:32 O2 Saturation 74 % (92-99) Arterial Blood pH 7.26 (7.35-7.45) Arterial Blood pCO2 at Patient Temp 87 mmHg (35-46) Arterial Blood pO2 at Patient Temp 45 mmHg (65-108) Arterial Blood HCO3 38 mmol/L (21-28) Arterial Blood Base Excess 8 mmol/L (-3-3) FiO2 21 Urine Collection Type Unknown Urine Color Yellow Urine Clarity Cloudy Urine pH 5.5 Urine Specific [place] 1.015 Urine Protein 30 mg/dL (NEG-TRACE) Urine Glucose (UA) Negative mg/dL (NEG) Urine Ketones (Stick) Negative mg/dL (NEG) Urine Blood Small (NEG) Urine Nitrite Negative (NEG) Urine Bilirubin Negative (NEG) Urine Urobilinogen Dipstick 1.0 mg/dL (0.2 mg/dL) Urine Leukocyte Esterase Large (NEG) Urine RBC Occ /HPF (0-2) Urine WBC 5-10 /HPF (0-4) Urine Bacteria Few /HPF (0-FEW) Urine Opiates Screen Neg (NEG) Urine Methadone Screen Neg (NEG) Urine Barbiturates Neg (NEG) Urine Phencyclidine Screen Neg (NEG) Urine Amphetamine/Methamphetamine Neg (NEG) Urine Benzodiazepines Screen Neg (NEG) Urine Cocaine Screen Neg (NEG) Urine Cannabinoids Screen Neg (NEG) Urine Ethyl Alcohol Neg (NEG) Images Images AP portable chest radiograph 11/24/2018 Clinical History: Shortness of breath. An AP erect portable digital radiograph of the chest was obtained. Comparison study is dated 10/13/2018. The cardiac silhouette is mildly enlarged. The thoracic aorta is tortuous. Atherosclerotic calcification of the thoracic aorta is seen. Areas of atelectasis and/or infiltrate are seen involving both lower lobes. There is a probable small left pleural effusion. No pneumothorax is seen. The osseous structures are unchanged. Impression: Areas of atelectasis and/or infiltrate are seen involving both lower lobes. There is a probable small left pleural effusion. Electronically signed by: Clarke Martini MD (11/24/2018 2:32 PM) [facility] DICTATED and SIGNED BY: CLARKE MARTINI MD VTE Prophylaxis Ordered VTE Prophylaxis Devices: Yes VTE Pharmacological Prophylaxi: Yes Assessment/Plan Assessment/Plan IMPRESSION ALTERED MENTAL STATUS, LIKELY MED RELATED SEVERE HYPERCAPNIC RESP FAILURE uncontrolled DM Depression GERD COPD Tobacco Abuse HX Obesity BMI 44 PLAN ADMIT BIPAP SUPPORT CONSULT PULM HOLD ANTIPSYCHOTIC MEDS FOR NOW HOLD LANTUS ACCUCHECKS CT HEAD ABG 76 MIN PT EXAM, CHART REVIEW, > 50% OF TIME SPENT WITH CHART REVIEW, PT EXAM, PT CARE COORDINATION JEFFREY ROBERTO MD Nov 24, 2018 12:13
[2018-11-24 12:28] LABS: BASO % 0 % (0-3); EOS % 0 % (0-3); LYMPH # 0.7 x10^3/uL (1.0-4.8); LYMPH % 7 % (24-48); MEAN CORPUSCULAR HEMOGLOBIN 24 pg (25-35); MEAN CORPUSCULAR HGB CONC 31 g/dL (31-37); MEAN CORPUSCULAR VOLUME 79 fL (79-100); MONO # 1.1 x10^3/uL (0.0-1.1); MONO % 11 % (0-9); NEUT # 8.2 x10^3/uL (1.8-7.7); NEUT % 83 % (31-73); PLATELET COUNT 317 x10^3/uL (140-400); RED BLOOD COUNT 4.93 x10^6/uL (3.50-5.40); RED CELL DISTRIBUTION WIDTH 16.3 % (11.5-14.5); WHITE BLOOD COUNT 9.9 x10^3/uL (4.0-11.0)
--- NOTE | 2018-11-24 12:34 | PHYS DOC ---
Past Medical History Past Medical History: Asthma, Bipolar, Depression, Diabetes-Type II, High Cholesterol, Schizophrenia Additional Past Medical Histor: PYLEONEPHRITIS, INSOMNIA, MR Past Surgical History: No Surgical History Alcohol Use: None Drug Use: None Adult General Chief Complaint Chief Complaint: ALTERED MENTAL STATUS HPI HPI Patient is a 58 year old female who was [facility] this morning. She had a history of MR, history of diabetic, on insulin. Patient nurse called EMS, they checked her blood sugar and it was 145. Patient was not on any narcotic, EMS decided to give her 2 mg of Narcan, that woke her up shortly but she became unresponsive again. They put her on a nonrebreather oxygen, brought her here for evaluation. Patient has history of COPD, she is on [facility]bulizer treatment at the [facility]. She was a former smoker, they not sure that she smoked at the [facility] any more. Upon Arrival to ER, patient was confused, could not provide any information. Review of Systems Review of Systems could not obtain any review of systems because patient was not cooperative, being confused. Current Medications Current Medications Current Medications Medications (Trade) Dose Ordered Sig/[place] Start Time Stop Time Status Last Admin Dose Admin Albuterol/ Ipratropium (Duoneb) 3 ml RTQID 11/24/18 16:00 11/25/18 15:59 Ceftriaxone Sodium (Rocephin) 1 gm 1X ONCE 11/24/18 12:45 11/24/18 12:46 DC 11/24/18 13:00 1 GM Ondansetron HCl (Zofran) 4 mg PRN Q8HRS PRN 11/24/18 12:45 11/25/18 12:44 Sodium Chloride 1,000 ml @ 100 mls/hr Q10H 11/24/18 12:36 11/25/18 12:35 Allergies Allergies Allergies Coded Allergies Type Severity Reaction Last Updated Verified No Known Drug Allergies 03/03/13 No Physical Exam Physical Exam Constitutional: Well developed, well nourished, in moderated distress, yelling and hollering, being very restless in bed. HENT: Normocephalic, atraumatic, bilateral external ears normal, oropharynx moist, no oral exudates, nose normal. [] Eyes: PERRLA, EOMI, conjunctiva normal, no discharge. [] Neck: Normal range of motion, no tenderness, supple, no stridor. [] Cardiovascular: Sinus tachycardia, regular rhythm, no murmur [] Lungs & Thorax: Bilateral breath sounds equal but wheezing. ] Abdomen: Bowel sounds normal, soft, no tenderness, no masses, no pulsatile masses. [] Skin: Warm, dry, no erythema, no rash. [] Back: No tenderness, no CVA tenderness. [] Extremities: No tenderness, no cyanosis, no clubbing, ROM intact, no edema. [] Neurologic: patient moves all extremities, yelling and hollering but confused, disoriented to place, time and person. Psychologic: not able to evaluate. Current Patient Data Vital Signs Vital Signs Date Time Temp Pulse Resp B/P (MAP) Pulse Ox O2 Delivery O2 Flow Rate FiO2 11/24/18 12:53 96 24 96 11/24/18 11:25 BiPAP/CPAP 11/24/18 10:52 97.8 114/71 (85) 15.0 97.8 Lab Values Laboratory Tests Test 11/24/18 11:00 11/24/18 11:32 11/24/18 12:07 O2 Saturation 74 % (92-99) L Arterial Blood pH 7.26 (7.35-7.45) L Arterial Blood pCO2 at Patient Temp 87 mmHg (35-46) *H Arterial Blood pO2 at Patient Temp 45 mmHg (65-108) *L Arterial Blood HCO3 38 mmol/L (21-28) H Arterial Blood Base Excess 8 mmol/L (-3-3) H FiO2 21 Urine Collection Type Unknown Urine Color Yellow Urine Clarity Cloudy Urine pH 5.5 Urine Specific [place] 1.015 Urine Protein 30 mg/dL (NEG-TRACE) Urine Glucose (UA) Negative mg/dL (NEG) Urine Ketones (Stick) Negative mg/dL (NEG) Urine Blood Small (NEG) Urine Nitrite Negative (NEG) Urine Bilirubin Negative (NEG) Urine Urobilinogen Dipstick 1.0 mg/dL (0.2 mg/dL) Urine Leukocyte Esterase Large (NEG) Urine RBC Occ /HPF (0-2) Urine WBC 5-10 /HPF (0-4) Urine Bacteria Few /HPF (0-FEW) Urine Opiates Screen Neg (NEG) Urine Methadone Screen Neg (NEG) Urine Barbiturates Neg (NEG) Urine Phencyclidine Screen Neg (NEG) Urine Amphetamine/Methamphetamine Neg (NEG) Urine Benzodiazepines Screen Neg (NEG) Urine Cocaine Screen Neg (NEG) Urine Cannabinoids Screen Neg (NEG) Urine Ethyl Alcohol Neg (NEG) White Blood Count 9.9 x10^3/uL (4.0-11.0) Red Blood Count 4.93 x10^6/uL (3.50-5.40) Hemoglobin 12.0 g/dL (12.0-15.5) Hematocrit 39.0 % (36.0-47.0) Mean Corpuscular Volume 79 fL (79-100) Mean Corpuscular Hemoglobin 24 pg (25-35) L Mean Corpuscular Hemoglobin Concent 31 g/dL (31-37) Red Cell Distribution Width 16.3 % (11.5-14.5) H Platelet Count 317 x10^3/uL (140-400) Neutrophils (%) (Auto) 83 % (31-73) H Lymphocytes (%) (Auto) 7 % (24-48) L Monocytes (%) (Auto) 11 % (0-9) H Eosinophils (%) (Auto) 0 % (0-3) Basophils (%) (Auto) 0 % (0-3) Neutrophils # (Auto) 8.2 x10^3/uL (1.8-7.7) H Lymphocytes # (Auto) 0.7 x10^3/uL (1.0-4.8) L Monocytes # (Auto) 1.1 x10^3/uL (0.0-1.1) Eosinophils # (Auto) 0.0 x10^3/uL (0.0-0.7) Basophils # (Auto) 0.0 x10^3/uL (0.0-0.2) Prothrombin Time 14.6 SEC (11.7-14.0) H Prothrombin Time INR 1.2 (0.8-1.1) H Activated Partial Thromboplast Time 21 SEC (24-38) L Sodium Level 135 mmol/L (136-145) L Potassium Level 5.3 mmol/L (3.5-5.1) H Chloride Level 94 mmol/L (98-107) L Carbon Dioxide Level 35 mmol/L (21-32) H Anion Gap 6 (6-14) Blood Urea Nitrogen 51 mg/dL (7-20) H Creatinine 1.4 mg/dL (0.6-1.0) H Estimated GFR (Cockcroft-Gault) 38.4 BUN/Creatinine Ratio 36 (6-20) H Glucose Level 175 mg/dL (70-99) H Calcium Level 8.7 mg/dL (8.5-10.1) Magnesium Level 1.6 mg/dL (1.8-2.4) L Total Bilirubin 0.5 mg/dL (0.2-1.0) Aspartate Amino Transferase (AST) 384 U/L (15-37) H Alanine Aminotransferase (ALT) 928 U/L (14-59) H Alkaline Phosphatase 73 U/L (46-116) Ammonia 38 mcmol/L (11-34) H Troponin I Quantitative < 0.017 ng/mL (0.000-0.055) PG-Egs-T-Type Natriuretic Peptide 5113 pg/mL (0-124) H Total Protein 7.0 g/dL (6.4-8.2) Albumin 3.3 g/dL (3.4-5.0) L Albumin/Globulin Ratio 0.9 (1.0-1.7) L Laboratory Tests 11/24/18 12:07 Laboratory Tests 11/24/18 12:07 EKG EKG [] Radiology/Procedures Radiology/Procedures [][facility] [address] [place] [address] IMAGING REPORT Signed PATIENT: RENA BROTHERS ACCOUNT: [id number] : 1960 LOCATION: ER AGE: 58 SEX: F EXAM STATUS: REG ER ORD. PHYSICIAN: OMID HOWELL DO REASON: ALTERED MENTAL STATUS PROCEDURE: CT HEAD WO CONTRAST CT scan of the head without contrast 11/24/2018 Clinical History: Altered mental status. Technique: Unenhanced, contiguous, 5 mm axial sections were obtained through the head. One or more of the following individualized dose reduction techniques were utilized for this study: 1. Automated exposure control. 2. Adjustment of the mA and/or kV according to patient size. 3. Use of iterative reconstruction technique. Findings: Comparison study is dated 09/04/2018. There is mild generalized parenchymal atrophy. Areas of decreased attenuation are seen within the periventricular and subcortical white matter of both cerebral hemispheres consistent with areas of small vessel ischemic disease. No acute parenchymal abnormality is seen. No extra-axial fluid collection is noted. No skull fracture is seen. Impression: No acute intracranial abnormality is seen. Electronically signed by: Clarke Loredo MD (11/24/2018 11:56 AM) [facility] DICTATED and SIGNED BY: CLARKE LOREDO MD DATE: 11/24/18 [id number] Course & Med Decision Making Course & Med Decision Making Pertinent Labs and Imaging studies reviewed. (See chart for details) Patient was found to have retention of CO2, COPD EXACERBATION. She also has UTI. WILL ADMIT HER FOR FURTHER EVALUATION AND TREATMENT. Dragon Disclaimer Dragon Disclaimer This electronic medical record was generated, in whole or in part, using a voice recognition dictation system. Departure Departure Impression: Primary Impression: Altered mental status Additional Impressions: UTI (urinary tract infection) COPD exacerbation Hypercapnia Disposition: ADMITTED INPATIENT Admitting Physician: ANIYAH (DR. ROBERTO) Condition: STABLE Referrals: MARIELY DAS (PCP) Problem Qualifiers OMID HOWELL DO Nov 24, 2018 12:34
[2018-11-24 12:37] LABS: PROTHROMBIN TIME PATIENT 14.6 SEC (11.7-14.0)
[2018-11-24 12:42] LABS: CALCIUM 8.7 mg/dL (8.5-10.1); CREATININE 1.4 mg/dL (0.6-1.0); GFR 38.4; POTASSIUM 5.3 mmol/L (3.5-5.1)
[2018-11-24] MEDS ORDERED: ONDANSETRON PF 4 MG/2 ML VIAL. IV PRN (12:45)
[2018-11-24] MEDS ORDERED: cefTRIAXone IV Push 1 GM VIAL. IVP ONE (12:45)
[2018-11-24 12:47] LABS: ALBUMIN 3.3 g/dL (3.4-5.0); ALBUMIN/GLOBULIN RATIO 0.9 (1.0-1.7); MAGNESIUM 1.6 mg/dL (1.8-2.4); TOTAL BILIRUBIN 0.5 mg/dL (0.2-1.0)
--- NOTE | 2018-11-24 14:35 | RAD ---
AP portable chest radiograph 11/24/2018 Clinical History: Shortness of breath. An AP erect portable digital radiograph of the chest was obtained. Comparison study is dated 10/13/2018. The cardiac silhouette is mildly enlarged. The thoracic aorta is tortuous. Atherosclerotic calcification of the thoracic aorta is seen. Areas of atelectasis and/or infiltrate are seen involving both lower lobes. There is a probable small left pleural effusion. No pneumothorax is seen. The osseous structures are unchanged. Impression: Areas of atelectasis and/or infiltrate are seen involving both lower lobes. There is a probable small left pleural effusion. Electronically signed by: Clarke Loredo MD (11/24/2018 2:32 PM) [facility]
[2018-11-24] MEDS: IPRATRPIUM/ALBUTEROL 0.5/2.5MG 3 ML NEBU. NEB SCH ×2 (15:35→20:17)
[2018-11-24] MEDS: IV NORMAL SALINE 1000ML BAG 1,000 ML IV SCH ×2 (15:59→22:36)
[2018-11-24] MEDS ORDERED: GABA300C18 PO (16:54)
[2018-11-24] MEDS ORDERED: INSU100V SQ (16:54)
[2018-11-24] MEDS ORDERED: FURO-69 PO (16:54)
[2018-11-24] MEDS ORDERED: LURA60TA PO (16:54)
[2018-11-24] MEDS ORDERED: TRAZ150T49 PO (16:54)
[2018-11-24] MEDS ORDERED: FERR325T14 PO (16:54)
[2018-11-24] MEDS ORDERED: INSU100I13 SQ (16:54)
[2018-11-24] MEDS ORDERED: POLY17PO29 PO (16:54)
[2018-11-24] MEDS ORDERED: MELA3TAB56 PO (16:54)
[2018-11-24] MEDS ORDERED: ACETAMINOP650 MG/201 FT (16:54)
[2018-11-24] MEDS ORDERED: METO-239 PO (16:54)
[2018-11-24] MEDS ORDERED: QUET200T4 PO (16:54)
[2018-11-24] MEDS ORDERED: SENNOSIDES/DOCUSATE 8.6/50MG TABLET. PO PRN (17:30)
[2018-11-24] MEDS: FERROUS SULFATE 325 MG TABLET. PO SCH (17:30)
[2018-11-24] MEDS: metFORMIN 500 MG TABLET PO SCH (17:30)
[2018-11-24] MEDS ORDERED: ACETAMINOPHEN 650 MG/20.3 ML SOLUTION. PO PRN (17:30)
[2018-11-24] MEDS ORDERED: dilTIAZem IV PUSH 25 MG/5 ML VIAL IVP ONE (18:30)
[2018-11-24] MEDS: dilTIAZem INJ 125 MG in IV DEXTROSE 5% 100ML 100 ML IV PRN (19:22)
[2018-11-24] MEDS ORDERED: NON FORMULARY ITEM (Albuterol Sulfate (Albuterol Sulfate Hfa Inhaler) 2 PUFF) INH SCH (20:00)
[2018-11-24] MEDS: GABAPENTIN 300 MG CAPSULE. PO SCH (20:33)
[2018-11-24] MEDS: SIMVASTATIN 10 MG TABLET PO SCH (20:33)
[2018-11-24] MEDS: INSULIN GLARGINE SYRINGE. SQ SCH (20:42)
[2018-11-24] MEDS ORDERED: NON FORMULARY ITEM (Lurasidone Hcl (Latuda) 60 MG) PO SCH (21:00)
[2018-11-24 22:35] LABS: BASE EXCESS ABG 5 mmol/L (-3-3); HCO3 ABG 34 mmol/L (21-28); PO2 ABG 77 mmHg (65-108); SAT O2 ABG 94 % (92-99)
[2018-11-24 23:00] LABS: FIO2 ABG 45%; PCO2 ABG 74 mmHg (35-46)
[2018-11-24] MEDS ORDERED: methylPREDNISolone SOD SUCC PF 40 MG/ML VIAL. IV ONE (23:00)
[2018-11-25] VITALS (12 sets, daily range): BP systolic 108–160; BP diastolic 61–73
[2018-11-25] MEDS: dilTIAZem INJ 125 MG in IV DEXTROSE 5% 100ML 100 ML IV PRN ×3 (03:53→19:38)
[2018-11-25] MEDS: methylPREDNISolone SOD SUCC PF 40 MG/ML VIAL. IV SCH ×3 (05:44→20:41)
[2018-11-25 06:37] LABS: BASE EXCESS ABG 5 mmol/L (-3-3); HCO3 ABG 34 mmol/L (21-28); PCO2 ABG 80 mmHg (35-46); PO2 ABG 67 mmHg (65-108)
[2018-11-25 06:38] LABS: FIO2 ABG 45; SAT O2 ABG 90 % (92-99)
--- NOTE | 2018-11-25 07:29 | PDOC ---
Provider Note Provider Note [id number] acute resp fail ae of copd acute diastolic chf acute bronchitis see orders GEETA MCWILLIAMS MD Nov 25, 2018 07:29
[2018-11-25] MEDS ORDERED: FUROSEMIDE 20 MG/2 ML VIAL. IVP ONE (07:30)
[2018-11-25] MEDS: metFORMIN 500 MG TABLET PO SCH ×2 (07:33→13:59)
[2018-11-25] MEDS: FERROUS SULFATE 325 MG TABLET. PO SCH ×2 (07:33→13:58)
[2018-11-25] MEDS: FUROSEMIDE 20 MG TABLET PO SCH (07:34)
[2018-11-25] MEDS: POLYETHYLENE GLYCOL 3350 17 GM PACKET. PO SCH (07:35)
[2018-11-25] MEDS: GABAPENTIN 300 MG CAPSULE. PO SCH ×2 (07:36→19:36)
[2018-11-25] MEDS: METOPROLOL SUCC 24HR ER 25 MG TAB.ER.24H. PO SCH (07:36)
[2018-11-25] MEDS: LACTOBACILLUS RHAMNOSUS GG 1 CAPSULE. PO SCH ×2 (07:45→19:36)
--- NOTE | 2018-11-25 07:45 | NUR ---
Pt's PO morning medications held due to pt destating as soon as BiPAP mask taken off
--- NOTE | 2018-11-25 07:51 | CONS ---
DATE OF CONSULTATION: 11/25/2018 This is a 58-year-old lady for [id number] respiratory failure. HISTORY OF PRESENT ILLNESS: The patient has significant history of smoking, details are not known. She is a skilled nursing resident. She was found unresponsive by skilled nursing staff, was brought to the Emergency Room, was placed on BiPAP. She has mental retardation. She is on BiPAP. She opens her eyes with verbal stimuli, but her baseline is she is alert to her name. She appears comfortable. The patient was in AFib with rapid ventricular response when she arrived to the floor. She was started on Cardizem, but now she is sinus rhythm. Her heart rate is 96. PAST MEDICAL HISTORY: COPD, diabetes mellitus, hypercholesterolemia, schizophrenia, mental retardation, and hypertension. SOCIAL HISTORY: Positive for smoking, details are not known, hypertension. ALLERGIES: No known drug allergies. MEDICATIONS: Currently, she is on Toprol-XL, Lasix p.o., insulin, Solu-Medrol 80 mg IV every 8, gabapentin, Glucophage, ferrous sulfate, and DuoNeb. FAMILY HISTORY: Unable to obtain. The patient is not able to give information. ALLERGIES: No known drug allergies. REVIEW OF SYSTEMS: As mentioned as above. I have discussed the patient with RN, other systems otherwise negative. PHYSICAL EXAMINATION: GENERAL: This is an obese lady. VITAL SIGNS: Her O2 saturation on 45% FiO2 is 92%, respiratory rate 22, heart rate 96, blood pressure 139/65, and temperature 98.7. HEENT: Normocephalic, atraumatic. Pupils equal, round, reactive to light. She has BiPAP mask on. NECK: Positive JVD. No lymphadenopathy or thyromegaly. CARDIOVASCULAR: Regular rate and rhythm. PMI is nondisplaced. CHEST: Inspection is normal. LUNGS: There are bibasilar crackles, dullness at the bases, a few end expiratory wheezing. ABDOMEN: Soft and obese. Bowel sounds are good. There is no mass. EXTREMITIES: There is edema. LYMPHATICS: There is no lymphadenopathy. NEUROLOGIC: She is on BiPAP. SKIN: Warm. LABORATORY DATA: I reviewed the following laboratory data: WBC 9.9, hemoglobin 12, platelets 317. ABG this morning, pH 7.25, pCO2 80, pO2 of 67 on BiPAP 15/6, rate of 20, FiO2 is 45%. Sodium 135, potassium 5.3, chloride 94, CO2 of 35, glucose 175, BUN 51, and creatinine 1.4. WBC 9.9, hemoglobin 12, platelets 317. Her urine drug screen was negative. BNP 5113. Troponin less than 0.01. Chest x-ray shows infiltrate/atelectasis in the lower lobe area. IMPRESSION: 1. Acute on chronic hypoxemic hypercarbic respiratory failure, multifactorial in etiology, including acute exacerbation of chronic obstructive pulmonary disease, acute bronchitis versus pneumonia, acute diastolic congestive heart failure versus others. 2. Acute exacerbation of chronic obstructive pulmonary disease. 3. Acute bronchitis versus pneumonia. 4. Acute diastolic congestive heart failure. 5. Mental retardation. 6. Hypertension. 7. Diabetes mellitus. 8. New onset atrial fibrillation with rapid ventricular response, now in sinus rhythm. PLAN AND RECOMMENDATIONS: 1. Titrate FiO2 to keep O2 saturation 90%. 2. Change BiPAP setting to 18/6, rate of 20, FiO2 40%. We will do ABG in 2 hours. Continue BiPAP. If her respiratory status does not improve, I will transfer to ICU. 3. Continue steroids. 4. Continue antibiotic. 5. I will give her Lasix 20 mg IV now. 6. I do recommend echocardiogram. 7. Cardiology is consulted. 8. Leave anticoagulation to Cardiology regarding AFib with rapid ventricular response. 9. Elevate head of bed. 10. Bronchodilator. 11. The findings and recommendations were discussed with RN. Thank you very much for allowing me to participate in care of this very nice lady. GEETA MCWILLIAMS M.D. : VIANEY/nishi JOB#: [id number] / [id number]
[2018-11-25] MEDS: IV NORMAL SALINE 1000ML BAG 1,000 ML IV SCH (07:52)
[2018-11-25] MEDS: IPRATRPIUM/ALBUTEROL 0.5/2.5MG 3 ML NEBU. NEB SCH ×4 (07:57→19:49)
[2018-11-25] MEDS: INSULIN LISPRO 300 UNITS/3 ML VIAL. SQ SCH ×4 (08:32→17:48)
--- NOTE | 2018-11-25 09:20 | RAD ---
Bilateral lower extremity venous duplex study 11/25/2018 Clinical History: Bilateral leg swelling. Technique: Using a combination of real time ultrasound imaging and color-flow and pulse Doppler imaging techniques along with graded compression and augmentation, duplex evaluation of the deep venous system of the both lower extremities was performed. Multiple images were obtained. Findings: There is no sonographic evidence of deep venous thrombosis involving the visualized deep venous structures of either lower extremity. Impression: Negative study. Electronically signed by: Clarke Loredo MD (11/25/2018 9:17 AM) [facility]
--- NOTE | 2018-11-25 09:24 | PDOC ---
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 She opens her eyes with verbal stimuli, but her baseline is she is alert to her name CONSULT PULM HOLD ANTIPSYCHOTIC MEDS FOR NOW HOLD LANTUS ACCUCHECKS CT HEAD ABG noted 38 MIN PT EXAM, CHART REVIEW, > 50% OF TIME SPENT WITH CHART REVIEW, PT EXAM, PT CARE COORDINATION Vitals Vitals Vital Signs Date Time Temp Pulse Resp B/P (MAP) Pulse Ox O2 Delivery O2 Flow Rate FiO2 11/25/18 07:58 91 BiPAP/CPAP 11/25/18 07:37 101 157/61 11/25/18 07:00 20 11/25/18 02:02 98.7 98.7 11/24/18 19:46 15.0 Physical Exam Physical Exam Eyes: PERRLA, EOMI, conjunctiva normal, no discharge. [] Neck: Normal range of motion, no tenderness, supple, no stridor. [] Cardiovascular: Sinus tachycardia, regular rhythm, no murmur [] Lungs & Thorax: Bilateral breath sounds equal but wheezing. ] Abdomen: Bowel sounds normal, soft, no tenderness, no masses, no pulsatile masses. [] Skin: Warm, dry, no erythema, no rash. [] Back: No tenderness, no CVA tenderness. [] Extremities: No tenderness, no cyanosis, no clubbing, General: No acute distress Heart: Regular rate Lungs: Clear Abdomen: Normal bowel sounds, Soft, No tenderness Extremities: No cyanosis Labs LABS CT scan of the head without contrast 11/24/2018 Clinical History: Altered mental status. Technique: Unenhanced, contiguous, 5 mm axial sections were obtained through the head. One or more of the following individualized dose reduction techniques were utilized for this study: 1. Automated exposure control. 2. Adjustment of the mA and/or kV according to patient size. 3. Use of iterative reconstruction technique. Findings: Comparison study is dated 09/04/2018. There is mild generalized parenchymal atrophy. Areas of decreased attenuation are seen within the periventricular and subcortical white matter of both cerebral hemispheres consistent with areas of small vessel ischemic disease. No acute parenchymal abnormality is seen. No extra-axial fluid collection is noted. No skull fracture is seen. Impression: No acute intracranial abnormality is seen. Electronically signed by: Clarke Loredo MD (11/24/2018 11:56 AM) [facility] Laboratory Tests Test 11/24/18 11:00 11/24/18 11:32 11/24/18 12:07 11/24/18 17:44 O2 Saturation 74 % (92-99) Arterial Blood pH 7.26 (7.35-7.45) Arterial Blood pCO2 at Patient Temp 87 mmHg (35-46) Arterial Blood pO2 at Patient Temp 45 mmHg (65-108) Arterial Blood HCO3 38 mmol/L (21-28) Arterial Blood Base Excess 8 mmol/L (-3-3) FiO2 21 Urine Collection Type Unknown Urine Color Yellow Urine Clarity Cloudy Urine pH 5.5 Urine Specific [place] 1.015 Urine Protein 30 mg/dL (NEG-TRACE) Urine Glucose (UA) Negative mg/dL (NEG) Urine Ketones (Stick) Negative mg/dL (NEG) Urine Blood Small (NEG) Urine Nitrite Negative (NEG) Urine Bilirubin Negative (NEG) Urine Urobilinogen Dipstick 1.0 mg/dL (0.2 mg/dL) Urine Leukocyte Esterase Large (NEG) Urine RBC Occ /HPF (0-2) Urine WBC 5-10 /HPF (0-4) Urine Bacteria Few /HPF (0-FEW) Urine Opiates Screen Neg (NEG) Urine Methadone Screen Neg (NEG) Urine Barbiturates Neg (NEG) Urine Phencyclidine Screen Neg (NEG) Urine Amphetamine/Methamphetamine Neg (NEG) Urine Benzodiazepines Screen Neg (NEG) Urine Cocaine Screen Neg (NEG) Urine Cannabinoids Screen Neg (NEG) Urine Ethyl Alcohol Neg (NEG) White Blood Count 9.9 x10^3/uL (4.0-11.0) Red Blood Count 4.93 x10^6/uL (3.50-5.40) Hemoglobin 12.0 g/dL (12.0-15.5) Hematocrit 39.0 % (36.0-47.0) Mean Corpuscular Volume 79 fL (79-100) Mean Corpuscular Hemoglobin 24 pg (25-35) Mean Corpuscular Hemoglobin Concent 31 g/dL (31-37) Red Cell Distribution Width 16.3 % (11.5-14.5) Platelet Count 317 x10^3/uL (140-400) Neutrophils (%) (Auto) 83 % (31-73) Lymphocytes (%) (Auto) 7 % (24-48) Monocytes (%) (Auto) 11 % (0-9) Eosinophils (%) (Auto) 0 % (0-3) Basophils (%) (Auto) 0 % (0-3) Neutrophils # (Auto) 8.2 x10^3/uL (1.8-7.7) Lymphocytes # (Auto) 0.7 x10^3/uL (1.0-4.8) Monocytes # (Auto) 1.1 x10^3/uL (0.0-1.1) Eosinophils # (Auto) 0.0 x10^3/uL (0.0-0.7) Basophils # (Auto) 0.0 x10^3/uL (0.0-0.2) Prothrombin Time 14.6 SEC (11.7-14.0) Prothromb Time International Ratio 1.2 (0.8-1.1) Activated Partial Thromboplast Time 21 SEC (24-38) Sodium Level 135 mmol/L (136-145) Potassium Level 5.3 mmol/L (3.5-5.1) Chloride Level 94 mmol/L (98-107) Carbon Dioxide Level 35 mmol/L (21-32) Anion Gap 6 (6-14) Blood Urea Nitrogen 51 mg/dL (7-20) Creatinine 1.4 mg/dL (0.6-1.0) Estimated GFR (Cockcroft-Gault) 38.4 BUN/Creatinine Ratio 36 (6-20) Glucose Level 175 mg/dL (70-99) Calcium Level 8.7 mg/dL (8.5-10.1) Magnesium Level 1.6 mg/dL (1.8-2.4) Total Bilirubin 0.5 mg/dL (0.2-1.0) Aspartate Amino Transf (AST/SGOT) 384 U/L (15-37) Alanine Aminotransferase (ALT/SGPT) 928 U/L (14-59) Alkaline Phosphatase 73 U/L (46-116) Ammonia 38 mcmol/L (11-34) Troponin I Quantitative < 0.017 ng/mL (0.000-0.055) BA-Bjh-P-Type Natriuretic Peptide 5113 pg/mL (0-124) Total Protein 7.0 g/dL (6.4-8.2) Albumin 3.3 g/dL (3.4-5.0) Albumin/Globulin Ratio 0.9 (1.0-1.7) Glucose (Fingerstick) 139 mg/dL (70-99) Test 11/24/18 20:37 11/24/18 22:40 11/25/18 06:00 11/25/18 08:04 Glucose (Fingerstick) 132 mg/dL (70-99) 258 mg/dL (70-99) O2 Saturation 94 % (92-99) 90 % (92-99) Arterial Blood pH 7.28 (7.35-7.45) 7.25 (7.35-7.45) Arterial Blood pCO2 at Patient Temp 74 mmHg (35-46) 80 mmHg (35-46) Arterial Blood pO2 at Patient Temp 77 mmHg (65-108) 67 mmHg (65-108) Arterial Blood HCO3 34 mmol/L (21-28) 34 mmol/L (21-28) Arterial Blood Base Excess 5 mmol/L (-3-3) 5 mmol/L (-3-3) FiO2 45% 45 Assessment and Plan Assessmemt and Plan Problems Medical Problems: (1) Altered mental status Status: Acute (2) COPD exacerbation Status: Acute (3) hypercapnia Status: Acute (4) Hypercapnia Status: Acute (5) UTI (urinary tract infection) Status: Acute Comment Review of Relevant I have reviewed the following items ana (where applicable) has been applied. Labs Laboratory Tests Test 11/24/18 11:00 11/24/18 11:32 11/24/18 12:07 11/24/18 17:44 O2 Saturation 74 % (92-99) Arterial Blood pH 7.26 (7.35-7.45) Arterial Blood pCO2 at Patient Temp 87 mmHg (35-46) Arterial Blood pO2 at Patient Temp 45 mmHg (65-108) Arterial Blood HCO3 38 mmol/L (21-28) Arterial Blood Base Excess 8 mmol/L (-3-3) FiO2 21 Urine Collection Type Unknown Urine Color Yellow Urine Clarity Cloudy Urine pH 5.5 Urine Specific [place] 1.015 Urine Protein 30 mg/dL (NEG-TRACE) Urine Glucose (UA) Negative mg/dL (NEG) Urine Ketones (Stick) Negative mg/dL (NEG) Urine Blood Small (NEG) Urine Nitrite Negative (NEG) Urine Bilirubin Negative (NEG) Urine Urobilinogen Dipstick 1.0 mg/dL (0.2 mg/dL) Urine Leukocyte Esterase Large (NEG) Urine RBC Occ /HPF (0-2) Urine WBC 5-10 /HPF (0-4) Urine Bacteria Few /HPF (0-FEW) Urine Opiates Screen Neg (NEG) Urine Methadone Screen Neg (NEG) Urine Barbiturates Neg (NEG) Urine Phencyclidine Screen Neg (NEG) Urine Amphetamine/Methamphetamine Neg (NEG) Urine Benzodiazepines Screen Neg (NEG) Urine Cocaine Screen Neg (NEG) Urine Cannabinoids Screen Neg (NEG) Urine Ethyl Alcohol Neg (NEG) White Blood Count 9.9 x10^3/uL (4.0-11.0) Red Blood Count 4.93 x10^6/uL (3.50-5.40) Hemoglobin 12.0 g/dL (12.0-15.5) Hematocrit 39.0 % (36.0-47.0) Mean Corpuscular Volume 79 fL (79-100) Mean Corpuscular Hemoglobin 24 pg (25-35) Mean Corpuscular Hemoglobin Concent 31 g/dL (31-37) Red Cell Distribution Width 16.3 % (11.5-14.5) Platelet Count 317 x10^3/uL (140-400) Neutrophils (%) (Auto) 83 % (31-73) Lymphocytes (%) (Auto) 7 % (24-48) Monocytes (%) (Auto) 11 % (0-9) Eosinophils (%) (Auto) 0 % (0-3) Basophils (%) (Auto) 0 % (0-3) Neutrophils # (Auto) 8.2 x10^3/uL (1.8-7.7) Lymphocytes # (Auto) 0.7 x10^3/uL (1.0-4.8) Monocytes # (Auto) 1.1 x10^3/uL (0.0-1.1) Eosinophils # (Auto) 0.0 x10^3/uL (0.0-0.7) Basophils # (Auto) 0.0 x10^3/uL (0.0-0.2) Prothrombin Time 14.6 SEC (11.7-14.0) Prothromb Time International Ratio 1.2 (0.8-1.1) Activated Partial Thromboplast Time 21 SEC (24-38) Sodium Level 135 mmol/L (136-145) Potassium Level 5.3 mmol/L (3.5-5.1) Chloride Level 94 mmol/L (98-107) Carbon Dioxide Level 35 mmol/L (21-32) Anion Gap 6 (6-14) Blood Urea Nitrogen 51 mg/dL (7-20) Creatinine 1.4 mg/dL (0.6-1.0) Estimated GFR (Cockcroft-Gault) 38.4 BUN/Creatinine Ratio 36 (6-20) Glucose Level 175 mg/dL (70-99) Calcium Level 8.7 mg/dL (8.5-10.1) Magnesium Level 1.6 mg/dL (1.8-2.4) Total Bilirubin 0.5 mg/dL (0.2-1.0) Aspartate Amino Transf (AST/SGOT) 384 U/L (15-37) Alanine Aminotransferase (ALT/SGPT) 928 U/L (14-59) Alkaline Phosphatase 73 U/L (46-116) Ammonia 38 mcmol/L (11-34) Troponin I Quantitative < 0.017 ng/mL (0.000-0.055) VE-Mfn-T-Type Natriuretic Peptide 5113 pg/mL (0-124) Total Protein 7.0 g/dL (6.4-8.2) Albumin 3.3 g/dL (3.4-5.0) Albumin/Globulin Ratio 0.9 (1.0-1.7) Glucose (Fingerstick) 139 mg/dL (70-99) Test 11/24/18 20:37 11/24/18 22:40 11/25/18 06:00 11/25/18 08:04 Glucose (Fingerstick) 132 mg/dL (70-99) 258 mg/dL (70-99) O2 Saturation 94 % (92-99) 90 % (92-99) Arterial Blood pH 7.28 (7.35-7.45) 7.25 (7.35-7.45) Arterial Blood pCO2 at Patient Temp 74 mmHg (35-46) 80 mmHg (35-46) Arterial Blood pO2 at Patient Temp 77 mmHg (65-108) 67 mmHg (65-108) Arterial Blood HCO3 34 mmol/L (21-28) 34 mmol/L (21-28) Arterial Blood Base Excess 5 mmol/L (-3-3) 5 mmol/L (-3-3) FiO2 45% 45 Laboratory Tests Test 11/24/18 11:00 11/24/18 11:32 11/24/18 12:07 11/24/18 17:44 O2 Saturation 74 % (92-99) Arterial Blood pH 7.26 (7.35-7.45) Arterial Blood pCO2 at Patient Temp 87 mmHg (35-46) Arterial Blood pO2 at Patient Temp 45 mmHg (65-108) Arterial Blood HCO3 38 mmol/L (21-28) Arterial Blood Base Excess 8 mmol/L (-3-3) FiO2 21 Urine Collection Type Unknown Urine Color Yellow Urine Clarity Cloudy Urine pH 5.5 Urine Specific [place] 1.015 Urine Protein 30 mg/dL (NEG-TRACE) Urine Glucose (UA) Negative mg/dL (NEG) Urine Ketones (Stick) Negative mg/dL (NEG) Urine Blood Small (NEG) Urine Nitrite Negative (NEG) Urine Bilirubin Negative (NEG) Urine Urobilinogen Dipstick 1.0 mg/dL (0.2 mg/dL) Urine Leukocyte Esterase Large (NEG) Urine RBC Occ /HPF (0-2) Urine WBC 5-10 /HPF (0-4) Urine Bacteria Few /HPF (0-FEW) Urine Opiates Screen Neg (NEG) Urine Methadone Screen Neg (NEG) Urine Barbiturates Neg (NEG) Urine Phencyclidine Screen Neg (NEG) Urine Amphetamine/Methamphetamine Neg (NEG) Urine Benzodiazepines Screen Neg (NEG) Urine Cocaine Screen Neg (NEG) Urine Cannabinoids Screen Neg (NEG) Urine Ethyl Alcohol Neg (NEG) White Blood Count 9.9 x10^3/uL (4.0-11.0) Red Blood Count 4.93 x10^6/uL (3.50-5.40) Hemoglobin 12.0 g/dL (12.0-15.5) Hematocrit 39.0 % (36.0-47.0) Mean Corpuscular Volume 79 fL (79-100) Mean Corpuscular Hemoglobin 24 pg (25-35) Mean Corpuscular Hemoglobin Concent 31 g/dL (31-37) Red Cell Distribution Width 16.3 % (11.5-14.5) Platelet Count 317 x10^3/uL (140-400) Neutrophils (%) (Auto) 83 % (31-73) Lymphocytes (%) (Auto) 7 % (24-48) Monocytes (%) (Auto) 11 % (0-9) Eosinophils (%) (Auto) 0 % (0-3) Basophils (%) (Auto) 0 % (0-3) Neutrophils # (Auto) 8.2 x10^3/uL (1.8-7.7) Lymphocytes # (Auto) 0.7 x10^3/uL (1.0-4.8) Monocytes # (Auto) 1.1 x10^3/uL (0.0-1.1) Eosinophils # (Auto) 0.0 x10^3/uL (0.0-0.7) Basophils # (Auto) 0.0 x10^3/uL (0.0-0.2) Prothrombin Time 14.6 SEC (11.7-14.0) Prothromb Time International Ratio 1.2 (0.8-1.1) Activated Partial Thromboplast Time 21 SEC (24-38) Sodium Level 135 mmol/L (136-145) Potassium Level 5.3 mmol/L (3.5-5.1) Chloride Level 94 mmol/L (98-107) Carbon Dioxide Level 35 mmol/L (21-32) Anion Gap 6 (6-14) Blood Urea Nitrogen 51 mg/dL (7-20) Creatinine 1.4 mg/dL (0.6-1.0) Estimated GFR (Cockcroft-Gault) 38.4 BUN/Creatinine Ratio 36 (6-20) Glucose Level 175 mg/dL (70-99) Calcium Level 8.7 mg/dL (8.5-10.1) Magnesium Level 1.6 mg/dL (1.8-2.4) Total Bilirubin 0.5 mg/dL (0.2-1.0) Aspartate Amino Transf (AST/SGOT) 384 U/L (15-37) Alanine Aminotransferase (ALT/SGPT) 928 U/L (14-59) Alkaline Phosphatase 73 U/L (46-116) Ammonia 38 mcmol/L (11-34) Troponin I Quantitative < 0.017 ng/mL (0.000-0.055) QL-Bdt-R-Type Natriuretic Peptide 5113 pg/mL (0-124) Total Protein 7.0 g/dL (6.4-8.2) Albumin 3.3 g/dL (3.4-5.0) Albumin/Globulin Ratio 0.9 (1.0-1.7) Glucose (Fingerstick) 139 mg/dL (70-99) Test 11/24/18 20:37 11/24/18 22:40 11/25/18 06:00 11/25/18 08:04 Glucose (Fingerstick) 132 mg/dL (70-99) 258 mg/dL (70-99) O2 Saturation 94 % (92-99) 90 % (92-99) Arterial Blood pH 7.28 (7.35-7.45) 7.25 (7.35-7.45) Arterial Blood pCO2 at Patient Temp 74 mmHg (35-46) 80 mmHg (35-46) Arterial Blood pO2 at Patient Temp 77 mmHg (65-108) 67 mmHg (65-108) Arterial Blood HCO3 34 mmol/L (21-28) 34 mmol/L (21-28) Arterial Blood Base Excess 5 mmol/L (-3-3) 5 mmol/L (-3-3) FiO2 45% 45 Medications Current Medications Albuterol/ Ipratropium (Duoneb) 3 ml 1X ONCE NEB Last administered on 11/24/18at 12:22; Start 11/24/18 at 11:15; Stop 11/24/18 at 11:17; Status DC Ceftriaxone Sodium (Rocephin) 1 gm 1X ONCE IVP Last administered on 11/24/18at 13:00; Start 11/24/18 at 12:45; Stop 11/24/18 at 12:46; Status DC Albuterol/ Ipratropium (Duoneb) 3 ml 1X ONCE NEB Last administered on 11/24/18at 14:43; Start 11/24/18 at 12:45; Stop 11/24/18 at 12:46; Status DC Ondansetron HCl (Zofran) 4 mg PRN Q8HRS PRN IV NAUSEA/VOMITING; Start 11/24/18 at 12:45; Stop 11/25/18 at 12:44 Sodium Chloride 1,000 ml @ 100 mls/hr Q10H IV Last administered on 11/24/18at 22:39; Start 11/24/18 at 12:36; Stop 11/25/18 at 12:35 Albuterol/ Ipratropium (Duoneb) 3 ml RTQID NEB Last administered on 11/25/18at 07:57; Start 11/24/18 at 16:00; Stop 11/25/18 at 15:59 Lorazepam (Ativan Inj) 0.5 mg 1X ONCE IV Last administered on 11/24/18at 17:03; Start 11/24/18 at 16:30; Stop 11/24/18 at 16:31; Status DC Acetaminophen (Tylenol) 650 mg PRN Q6HRS PRN PO PAIN; Start 11/24/18 at 17:30 Ferrous Sulfate (Feosol) 325 mg BIDWMEALS PO ; Start 11/24/18 at 17:30 Furosemide (Lasix) 20 mg DAILY PO ; Start 11/25/18 at 09:00 Gabapentin (Neurontin) 300 mg BID PO ; Start 11/24/18 at 21:00 Insulin Human Lispro (HumaLOG) 8 units TIDWMEALS SQ Last administered on 11/25/18at 08:40; Start 11/25/18 at 08:00 Metformin HCl (Glucophage) 1,000 mg BIDWMEALS PO ; Start 11/24/18 at 17:30 Metoprolol Succinate (Toprol Xl) 50 mg DAILY PO ; Start 11/25/18 at 09:00 Polyethylene Glycol (miraLAX PACKET) 17 gm DAILY PO ; Start 11/25/18 at 09:00 Senna/Docusate Sodium (Senna Plus) 1 tab PRN BID PRN PO CONSTIPATION; Start 11/24/18 at 17:30 Simvastatin (Zocor) 10 mg HS PO ; Start 11/24/18 at 21:00 Non-Formulary Medication (Albuterol Sulfate (Albuterol Sulfate Hfa Inhaler)) 2 puff Q4HRS INH ; Start 11/24/18 at 20:00; Status UNV Insulin Glargine (Lantus Syringe) 25 unit QHS SQ ; Start 11/24/18 at 21:00 Non-Formulary Medication (Lurasidone Hcl (Latuda)) 60 mg HS PO ; Start 11/24/18 at 21:00; Status UNV Diltiazem HCl (Cardizem Iv Push) 10 mg 1X ONCE IVP Last administered on 11/24/18at 18:49; Start 11/24/18 at 18:30; Stop 11/24/18 at 19:08; Status DC Diltiazem HCl 125 mg/Dextrose 125 ml @ 5 mls/hr CONT PRN IV . Last administered on 11/25/18at 03:54; Start 11/24/18 at 18:30 Methylprednisolone Sodium Succinate (SOLU-Medrol 40MG VIAL) 80 mg Q8HRS IV Last administered on 11/25/18at 05:44; Start 11/25/18 at 06:00 Methylprednisolone Sodium Succinate (SOLU-Medrol 40MG VIAL) 80 mg 1X ONCE IV Last administered on 11/24/18at 23:09; Start 11/24/18 at 23:00; Stop 11/24/18 at 23:01; Status DC Lorazepam (Ativan Inj) 0.5 mg PRN Q6HRS PRN IV ANXIETY / AGITATION Last administered on 11/25/18at 03:54; Start 11/25/18 at 02:45 Furosemide (Lasix) 20 mg 1X ONCE IVP Last administered on 11/25/18at 08:40; Start 11/25/18 at 07:30; Stop 11/25/18 at 07:31; Status DC Ceftriaxone Sodium (Rocephin) 1 gm Q24H IVP ; Start 11/25/18 at 13:00 Lactobacillus Rhamnosus (Culturelle) 1 cap BID PO ; Start 11/25/18 at 09:00 Active Scripts Active Proair Hfa Inhaler (Albuterol Sulfate) 8.5 Gm Hfa.aer.ad 1 Puff INH PRN Q6HRS P RN Proair Hfa Inhaler (Albuterol Sulfate) 8.5 Gm Hfa.aer.ad 2 Puff INH PRN Q6HRS PRN Colace 2-in-1 Tablet (Sennosides/Docusate Sodium) 1 Each Tablet 1 Each PO BID PRN Glucophage (Metformin Hcl) 500 Mg Tablet 1,000 Mg PO BIDWMEALS Reported Lasix (Furosemide) 20 Mg Tablet 20 Mg PO DAILY Metoprolol Succinate ( Xl ) (Metoprolol Succinate) 25 Mg Tab.er.24h 50 Mg PO DAILY Acetaminophen 650 Mg/20.3 Ml Solution 650 Mg FT PRN PRN Miralax (Polyethylene Glycol 3350) 17 Gm Powd.pack 1 Pkt PO DAILY Ferrous Sulfate 325 Mg Tablet 325 Mg PO BID Seroquel (Quetiapine Fumarate) 200 Mg Tablet 200 Mg PO HS Melatonin 3 Mg Tablet 3 Mg PO HS Simvastatin 10 Mg Tablet 10 Mg PO HS Symbicort 160-4.5 Mcg Inhaler (Budesonide/Formoterol Fumarate) 10.2 Gm Hfa.aer.ad 2 Puff IH BID Albuterol Sulfate Hfa Inhaler (Albuterol Sulfate) 8.5 Gm Hfa.aer.ad 2 Puff INH Q4HRS Vitals/I & O Vital Sign - Last 24 Hours 11/24/18 11/24/18 11/24/18 11/24/18 10:52 11:25 11:40 12:15 Temp 97.8 97.8 Pulse 103 104 98 Resp 24 24 22 B/P (MAP) 114/71 (85) Pulse Ox 97 97 97 O2 Delivery NonRebreather Mask BiPAP/CPAP O2 Flow Rate 15.0 11/24/18 11/24/18 11/24/18 11/24/18 12:23 12:38 12:53 13:45 Pulse 96 96 96 149 Resp 24 22 24 24 Pulse Ox 96 96 96 97 11/24/18 11/24/18 11/24/18 11/24/18 14:50 15:35 15:41 18:49 Temp 98.1 98.1 Pulse 140 163 B/P (MAP) 125/68 (87) 125/65 Pulse Ox 94 O2 Delivery BiPAP/CPAP BiPAP/CPAP Bi-pap O2 Flow Rate 15.0 11/24/18 11/24/18 11/24/18 11/24/18 19:25 19:40 19:46 19:55 Temp 98.0 98.0 Pulse 148 Resp 30 B/P (MAP) 112/79 (90) 96/64 (75) 125/80 (95) Pulse Ox 94 O2 Delivery BiPAP/CPAP Bi-pap O2 Flow Rate 15.0 11/24/18 11/24/18 11/24/18 11/24/18 20:10 20:17 20:23 20:25 B/P (MAP) 82/66 (71) 156/82 (106) Pulse Ox 98 O2 Delivery BiPAP/CPAP BiPAP/CPAP 11/24/18 11/24/18 11/24/18 11/24/18 20:40 20:58 21:17 21:30 B/P (MAP) 129/74 (92) 133/69 (90) 131/71 (91) 124/71 (88) 11/24/18 11/24/18 11/24/18 11/24/18 21:45 22:00 22:19 22:30 Temp 98.3 98.3 Pulse 130 Resp 30 B/P (MAP) 111/74 (86) 108/69 (82) 130/69 (89) 138/65 (89) Pulse Ox 92 O2 Delivery BiPAP/CPAP 11/24/18 11/25/18 11/25/18 11/25/18 23:00 00:00 00:45 01:00 B/P (MAP) 106/65 (79) 108/66 (80) 141/67 (91) Pulse Ox 94 O2 Delivery BiPAP/CPAP 11/25/18 11/25/18 11/25/18 11/25/18 02:02 03:00 04:00 04:20 Temp 98.7 98.7 Pulse 134 Resp 20 B/P (MAP) 138/73 (94) 132/71 (91) 121/65 (83) Pulse Ox 92 91 O2 Delivery BiPAP/CPAP BiPAP/CPAP 11/25/18 11/25/18 11/25/18 11/25/18 05:00 06:00 07:00 07:37 Pulse 100 101 Resp 20 B/P (MAP) 125/64 (84) 139/65 (89) 157/61 (93) 157/61 Pulse Ox 91 O2 Delivery BiPAP/CPAP 11/25/18 07:58 Pulse Ox 91 O2 Delivery BiPAP/CPAP Intake and Output 11/24/18 11/24/18 11/25/18 15:00 23:00 07:00 Intake Total 750 ml 0 ml Output Total 200 ml 800 ml Balance 550 ml -800 ml JEFFREY ROBERTO MD Nov 25, 2018 09:24
--- NOTE | 2018-11-25 10:42 | PDOC2 ---
CONSULT Date of Consult Date of Consult DATE: 11/25/18 TIME: 10:42 Reason for Consult Reason for Consult: Atrial fibrillation Referring Physician Referring Physician: Dr. Crowell Identification/Chief Complaint Chief Complaint Atrial fibrillation Source Source: Chart review, Patient History of Present Illness Reason for Visit: 58-year-old female was brought to ED after she was found unresponsive by alf staff. She was diagnosed with acute respiratory failure and placed on BiPAP. She was also found to have atrial fibrillation with rapid ventricular response and started on Cardizem drip. She converted to sinus rhythm this morning. She is not a very good historian but denied any chest pain. Past Medical History Past Medical History COPD Hypertension Hyperlipidemia Diabetes mellitus type 2 Mental retardation Schizophrenia Past Surgical History Past Surgical History: Appendectomy Family History Family History: Hypertension Social History Quit ALCOHOL: none Drugs: None Current Problem List Problem List Problems Medical Problems: (1) Altered mental status Status: Acute (2) COPD exacerbation Status: Acute (3) hypercapnia Status: Acute (4) Hypercapnia Status: Acute (5) UTI (urinary tract infection) Status: Acute Current Medications Current Medications Current Medications Albuterol/ Ipratropium (Duoneb) 3 ml 1X ONCE NEB Last administered on 11/24/18at 12:22; Start 11/24/18 at 11:15; Stop 11/24/18 at 11:17; Status DC Ceftriaxone Sodium (Rocephin) 1 gm 1X ONCE IVP Last administered on 11/24/18at 13:00; Start 11/24/18 at 12:45; Stop 11/24/18 at 12:46; Status DC Albuterol/ Ipratropium (Duoneb) 3 ml 1X ONCE NEB Last administered on 11/24/18at 14:43; Start 11/24/18 at 12:45; Stop 11/24/18 at 12:46; Status DC Ondansetron HCl (Zofran) 4 mg PRN Q8HRS PRN IV NAUSEA/VOMITING; Start 11/24/18 at 12:45; Stop 11/25/18 at 12:44 Sodium Chloride 1,000 ml @ 100 mls/hr Q10H IV Last administered on 11/24/18at 22:39; Start 11/24/18 at 12:36; Stop 11/25/18 at 12:35 Albuterol/ Ipratropium (Duoneb) 3 ml RTQID NEB Last administered on 11/25/18at 07:57; Start 11/24/18 at 16:00; Stop 11/25/18 at 15:59 Lorazepam (Ativan Inj) 0.5 mg 1X ONCE IV Last administered on 11/24/18at 17:03; Start 11/24/18 at 16:30; Stop 11/24/18 at 16:31; Status DC Acetaminophen (Tylenol) 650 mg PRN Q6HRS PRN PO PAIN; Start 11/24/18 at 17:30 Ferrous Sulfate (Feosol) 325 mg BIDWMEALS PO ; Start 11/24/18 at 17:30 Furosemide (Lasix) 20 mg DAILY PO ; Start 11/25/18 at 09:00 Gabapentin (Neurontin) 300 mg BID PO ; Start 11/24/18 at 21:00 Insulin Human Lispro (HumaLOG) 8 units TIDWMEALS SQ Last administered on 11/25/18at 08:40; Start 11/25/18 at 08:00 Metformin HCl (Glucophage) 1,000 mg BIDWMEALS PO ; Start 11/24/18 at 17:30 Metoprolol Succinate (Toprol Xl) 50 mg DAILY PO ; Start 11/25/18 at 09:00 Polyethylene Glycol (miraLAX PACKET) 17 gm DAILY PO ; Start 11/25/18 at 09:00 Senna/Docusate Sodium (Senna Plus) 1 tab PRN BID PRN PO CONSTIPATION; Start 11/24/18 at 17:30 Simvastatin (Zocor) 10 mg HS PO ; Start 11/24/18 at 21:00 Non-Formulary Medication (Albuterol Sulfate (Albuterol Sulfate Hfa Inhaler)) 2 puff Q4HRS INH ; Start 11/24/18 at 20:00; Status UNV Insulin Glargine (Lantus Syringe) 25 unit QHS SQ ; Start 11/24/18 at 21:00 Non-Formulary Medication (Lurasidone Hcl (Latuda)) 60 mg HS PO ; Start 11/24/18 at 21:00; Status UNV Diltiazem HCl (Cardizem Iv Push) 10 mg 1X ONCE IVP Last administered on 11/24/18at 18:49; Start 11/24/18 at 18:30; Stop 11/24/18 at 19:08; Status DC Diltiazem HCl 125 mg/Dextrose 125 ml @ 5 mls/hr CONT PRN IV . Last administered on 11/25/18at 03:54; Start 11/24/18 at 18:30 Methylprednisolone Sodium Succinate (SOLU-Medrol 40MG VIAL) 80 mg Q8HRS IV Last administered on 11/25/18at 05:44; Start 11/25/18 at 06:00 Methylprednisolone Sodium Succinate (SOLU-Medrol 40MG VIAL) 80 mg 1X ONCE IV Last administered on 11/24/18at 23:09; Start 11/24/18 at 23:00; Stop 11/24/18 at 23:01; Status DC Lorazepam (Ativan Inj) 0.5 mg PRN Q6HRS PRN IV ANXIETY / AGITATION Last administered on 11/25/18at 10:00; Start 11/25/18 at 02:45 Furosemide (Lasix) 20 mg 1X ONCE IVP Last administered on 11/25/18at 08:40; Start 11/25/18 at 07:30; Stop 11/25/18 at 07:31; Status DC Ceftriaxone Sodium (Rocephin) 1 gm Q24H IVP ; Start 11/25/18 at 13:00 Lactobacillus Rhamnosus (Culturelle) 1 cap BID PO ; Start 11/25/18 at 09:00 Active Scripts Active Proair Hfa Inhaler (Albuterol Sulfate) 8.5 Gm Hfa.aer.ad 1 Puff INH PRN Q6HRS PRN Proair Hfa Inhaler (Albuterol Sulfate) 8.5 Gm Hfa.aer.ad 2 Puff INH PRN Q6HRS PRN Colace 2-in-1 Tablet (Sennosides/Docusate Sodium) 1 Each Tablet 1 Each PO BID PRN Glucophage (Metformin Hcl) 500 Mg Tablet 1,000 Mg PO BIDWMEALS Reported Lasix (Furosemide) 20 Mg Tablet 20 Mg PO DAILY Metoprolol Succinate ( Xl ) (Metoprolol Succinate) 25 Mg Tab.er.24h 50 Mg PO DAILY Acetaminophen 650 Mg/20.3 Ml Solution 650 Mg FT PRN PRN Miralax (Polyethylene Glycol 3350) 17 Gm Powd.pack 1 Pkt PO DAILY Ferrous Sulfate 325 Mg Tablet 325 Mg PO BID Seroquel (Quetiapine Fumarate) 200 Mg Tablet 200 Mg PO HS Melatonin 3 Mg Tablet 3 Mg PO HS Simvastatin 10 Mg Tablet 10 Mg PO HS Symbicort 160-4.5 Mcg Inhaler (Budesonide/Formoterol Fumarate) 10.2 Gm Hfa.aer.ad 2 Puff IH BID Albuterol Sulfate Hfa Inhaler (Albuterol Sulfate) 8.5 Gm Hfa.aer.ad 2 Puff INH Q4HRS Allergies Allergies: Coded Allergies: No Known Drug Allergies (Unverified , 03/03/13) ROS Review of System Full review of systems cannot be obtained Physical Exam General: mild distress HEENT: Atraumatic Lungs: Other (bilateral expiratory rhonchi and decreased air movement) Heart: Other (heart rate is irregular) Abdomen: Soft Extremities: No edema Vitals VITALS Vital Signs Date Time Temp Pulse Resp B/P (MAP) Pulse Ox O2 Delivery O2 Flow Rate FiO2 11/25/18 07:58 91 BiPAP/CPAP 11/25/18 07:37 101 157/61 11/25/18 07:00 20 11/25/18 02:02 98.7 98.7 11/24/18 19:46 15.0 Labs Labs Laboratory Tests Test 11/24/18 11:00 11/24/18 11:32 11/24/18 12:07 11/24/18 17:44 O2 Saturation 74 % (92-99) Arterial Blood pH 7.26 (7.35-7.45) Arterial Blood pCO2 at Patient Temp 87 mmHg (35-46) Arterial Blood pO2 at Patient Temp 45 mmHg (65-108) Arterial Blood HCO3 38 mmol/L (21-28) Arterial Blood Base Excess 8 mmol/L (-3-3) FiO2 21 Urine Collection Type Unknown Urine Color Yellow Urine Clarity Cloudy Urine pH 5.5 Urine Specific [place] 1.015 Urine Protein 30 mg/dL (NEG-TRACE) Urine Glucose (UA) Negative mg/dL (NEG) Urine Ketones (Stick) Negative mg/dL (NEG) Urine Blood Small (NEG) Urine Nitrite Negative (NEG) Urine Bilirubin Negative (NEG) Urine Urobilinogen Dipstick 1.0 mg/dL (0.2 mg/dL) Urine Leukocyte Esterase Large (NEG) Urine RBC Occ /HPF (0-2) Urine WBC 5-10 /HPF (0-4) Urine Bacteria Few /HPF (0-FEW) Urine Opiates Screen Neg (NEG) Urine Methadone Screen Neg (NEG) Urine Barbiturates Neg (NEG) Urine Phencyclidine Screen Neg (NEG) Urine Amphetamine/Methamphetamine Neg (NEG) Urine Benzodiazepines Screen Neg (NEG) Urine Cocaine Screen Neg (NEG) Urine Cannabinoids Screen Neg (NEG) Urine Ethyl Alcohol Neg (NEG) White Blood Count 9.9 x10^3/uL (4.0-11.0) Red Blood Count 4.93 x10^6/uL (3.50-5.40) Hemoglobin 12.0 g/dL (12.0-15.5) Hematocrit 39.0 % (36.0-47.0) Mean Corpuscular Volume 79 fL (79-100) Mean Corpuscular Hemoglobin 24 pg (25-35) Mean Corpuscular Hemoglobin Concent 31 g/dL (31-37) Red Cell Distribution Width 16.3 % (11.5-14.5) Platelet Count 317 x10^3/uL (140-400) Neutrophils (%) (Auto) 83 % (31-73) Lymphocytes (%) (Auto) 7 % (24-48) Monocytes (%) (Auto) 11 % (0-9) Eosinophils (%) (Auto) 0 % (0-3) Basophils (%) (Auto) 0 % (0-3) Neutrophils # (Auto) 8.2 x10^3/uL (1.8-7.7) Lymphocytes # (Auto) 0.7 x10^3/uL (1.0-4.8) Monocytes # (Auto) 1.1 x10^3/uL (0.0-1.1) Eosinophils # (Auto) 0.0 x10^3/uL (0.0-0.7) Basophils # (Auto) 0.0 x10^3/uL (0.0-0.2) Prothrombin Time 14.6 SEC (11.7-14.0) Prothromb Time International Ratio 1.2 (0.8-1.1) Activated Partial Thromboplast Time 21 SEC (24-38) Sodium Level 135 mmol/L (136-145) Potassium Level 5.3 mmol/L (3.5-5.1) Chloride Level 94 mmol/L (98-107) Carbon Dioxide Level 35 mmol/L (21-32) Anion Gap 6 (6-14) Blood Urea Nitrogen 51 mg/dL (7-20) Creatinine 1.4 mg/dL (0.6-1.0) Estimated GFR (Cockcroft-Gault) 38.4 BUN/Creatinine Ratio 36 (6-20) Glucose Level 175 mg/dL (70-99) Calcium Level 8.7 mg/dL (8.5-10.1) Magnesium Level 1.6 mg/dL (1.8-2.4) Total Bilirubin 0.5 mg/dL (0.2-1.0) Aspartate Amino Transf (AST/SGOT) 384 U/L (15-37) Alanine Aminotransferase (ALT/SGPT) 928 U/L (14-59) Alkaline Phosphatase 73 U/L (46-116) Ammonia 38 mcmol/L (11-34) Troponin I Quantitative < 0.017 ng/mL (0.000-0.055) TC-Efy-M-Type Natriuretic Peptide 5113 pg/mL (0-124) Total Protein 7.0 g/dL (6.4-8.2) Albumin 3.3 g/dL (3.4-5.0) Albumin/Globulin Ratio 0.9 (1.0-1.7) Glucose (Fingerstick) 139 mg/dL (70-99) Test 11/24/18 20:37 11/24/18 22:40 11/25/18 06:00 11/25/18 08:04 Glucose (Fingerstick) 132 mg/dL (70-99) 258 mg/dL (70-99) O2 Saturation 94 % (92-99) 90 % (92-99) Arterial Blood pH 7.28 (7.35-7.45) 7.25 (7.35-7.45) Arterial Blood pCO2 at Patient Temp 74 mmHg (35-46) 80 mmHg (35-46) Arterial Blood pO2 at Patient Temp 77 mmHg (65-108) 67 mmHg (65-108) Arterial Blood HCO3 34 mmol/L (21-28) 34 mmol/L (21-28) Arterial Blood Base Excess 5 mmol/L (-3-3) 5 mmol/L (-3-3) FiO2 45% 45 Laboratory Tests Test 11/24/18 11:00 11/24/18 11:32 11/24/18 12:07 11/24/18 17:44 O2 Saturation 74 % (92-99) Arterial Blood pH 7.26 (7.35-7.45) Arterial Blood pCO2 at Patient Temp 87 mmHg (35-46) Arterial Blood pO2 at Patient Temp 45 mmHg (65-108) Arterial Blood HCO3 38 mmol/L (21-28) Arterial Blood Base Excess 8 mmol/L (-3-3) FiO2 21 Urine Collection Type Unknown Urine Color Yellow Urine Clarity Cloudy Urine pH 5.5 Urine Specific [place] 1.015 Urine Protein 30 mg/dL (NEG-TRACE) Urine Glucose (UA) Negative mg/dL (NEG) Urine Ketones (Stick) Negative mg/dL (NEG) Urine Blood Small (NEG) Urine Nitrite Negative (NEG) Urine Bilirubin Negative (NEG) Urine Urobilinogen Dipstick 1.0 mg/dL (0.2 mg/dL) Urine Leukocyte Esterase Large (NEG) Urine RBC Occ /HPF (0-2) Urine WBC 5-10 /HPF (0-4) Urine Bacteria Few /HPF (0-FEW) Urine Opiates Screen Neg (NEG) Urine Methadone Screen Neg (NEG) Urine Barbiturates Neg (NEG) Urine Phencyclidine Screen Neg (NEG) Urine Amphetamine/Methamphetamine Neg (NEG) Urine Benzodiazepines Screen Neg (NEG) Urine Cocaine Screen Neg (NEG) Urine Cannabinoids Screen Neg (NEG) Urine Ethyl Alcohol Neg (NEG) White Blood Count 9.9 x10^3/uL (4.0-11.0) Red Blood Count 4.93 x10^6/uL (3.50-5.40) Hemoglobin 12.0 g/dL (12.0-15.5) Hematocrit 39.0 % (36.0-47.0) Mean Corpuscular Volume 79 fL (79-100) Mean Corpuscular Hemoglobin 24 pg (25-35) Mean Corpuscular Hemoglobin Concent 31 g/dL (31-37) Red Cell Distribution Width 16.3 % (11.5-14.5) Platelet Count 317 x10^3/uL (140-400) Neutrophils (%) (Auto) 83 % (31-73) Lymphocytes (%) (Auto) 7 % (24-48) Monocytes (%) (Auto) 11 % (0-9) Eosinophils (%) (Auto) 0 % (0-3) Basophils (%) (Auto) 0 % (0-3) Neutrophils # (Auto) 8.2 x10^3/uL (1.8-7.7) Lymphocytes # (Auto) 0.7 x10^3/uL (1.0-4.8) Monocytes # (Auto) 1.1 x10^3/uL (0.0-1.1) Eosinophils # (Auto) 0.0 x10^3/uL (0.0-0.7) Basophils # (Auto) 0.0 x10^3/uL (0.0-0.2) Prothrombin Time 14.6 SEC (11.7-14.0) Prothromb Time International Ratio 1.2 (0.8-1.1) Activated Partial Thromboplast Time 21 SEC (24-38) Sodium Level 135 mmol/L (136-145) Potassium Level 5.3 mmol/L (3.5-5.1) Chloride Level 94 mmol/L (98-107) Carbon Dioxide Level 35 mmol/L (21-32) Anion Gap 6 (6-14) Blood Urea Nitrogen 51 mg/dL (7-20) Creatinine 1.4 mg/dL (0.6-1.0) Estimated GFR (Cockcroft-Gault) 38.4 BUN/Creatinine Ratio 36 (6-20) Glucose Level 175 mg/dL (70-99) Calcium Level 8.7 mg/dL (8.5-10.1) Magnesium Level 1.6 mg/dL (1.8-2.4) Total Bilirubin 0.5 mg/dL (0.2-1.0) Aspartate Amino Transf (AST/SGOT) 384 U/L (15-37) Alanine Aminotransferase (ALT/SGPT) 928 U/L (14-59) Alkaline Phosphatase 73 U/L (46-116) Ammonia 38 mcmol/L (11-34) Troponin I Quantitative < 0.017 ng/mL (0.000-0.055) IR-Uah-U-Type Natriuretic Peptide 5113 pg/mL (0-124) Total Protein 7.0 g/dL (6.4-8.2) Albumin 3.3 g/dL (3.4-5.0) Albumin/Globulin Ratio 0.9 (1.0-1.7) Glucose (Fingerstick) 139 mg/dL (70-99) Test 11/24/18 20:37 11/24/18 22:40 11/25/18 06:00 11/25/18 08:04 Glucose (Fingerstick) 132 mg/dL (70-99) 258 mg/dL (70-99) O2 Saturation 94 % (92-99) 90 % (92-99) Arterial Blood pH 7.28 (7.35-7.45) 7.25 (7.35-7.45) Arterial Blood pCO2 at Patient Temp 74 mmHg (35-46) 80 mmHg (35-46) Arterial Blood pO2 at Patient Temp 77 mmHg (65-108) 67 mmHg (65-108) Arterial Blood HCO3 34 mmol/L (21-28) 34 mmol/L (21-28) Arterial Blood Base Excess 5 mmol/L (-3-3) 5 mmol/L (-3-3) FiO2 45% 45 Assessment/Plan Assessment/Plan 1. Acute hypercapnic respiratory failure most probably secondary to acute COPD exacerbation. Continue current treatment per pulmonary team. 2. Atrial fibrillation with RVR, newly diagnosed. She is presently back in sinus rhythm. Continue Cardizem and change to PO once able to take oral meds. Check 2-D echo to assess LV function. She is probably a poor candidate for long- term anticoagulation. 3. Hypertension: Controlled 4. Hyperlipidemia: Continue statin therapy 5. Diabetes mellitus type 2: Treat per IM Thank you for your consultation NOELLE RYAN MD Nov 25, 2018 10:42
[2018-11-25] MEDS: cefTRIAXone IV Push 1 GM VIAL. IVP SCH (12:12)
[2018-11-25 12:39] LABS: HCO3 ABG 31 mmol/L (21-28); PCO2 ABG 63 mmHg (35-46); PO2 ABG 67 mmHg (65-108)
[2018-11-25 12:40] LABS: BASE EXCESS ABG 3 mmol/L (-3-3); FIO2 ABG 40; SAT O2 ABG 91 % (92-99)
[2018-11-25] MEDS ORDERED: IV DEXTROSE 5% 250 ML BAG. IV PRN (17:00)
[2018-11-25] MEDS ORDERED: DEXTROSE 50% 25 GM / 50ML DISP.SYRIN. IV PRN (17:00)
[2018-11-25] MEDS: SIMVASTATIN 10 MG TABLET PO SCH (19:36)
[2018-11-25] MEDS: LURASIDONE 40 MG TABLET. PO SCH (19:36)
[2018-11-25] MEDS: INSULIN GLARGINE SYRINGE. SQ SCH (20:46)
[2018-11-26] VITALS (11 sets, daily range): BP systolic 119–157; BP diastolic 56–81
[2018-11-26] MEDS: dilTIAZem INJ 125 MG in IV DEXTROSE 5% 100ML 100 ML IV PRN ×3 (04:24→19:05)
[2018-11-26] MEDS: methylPREDNISolone SOD SUCC PF 40 MG/ML VIAL. IV SCH ×3 (06:11→21:29)
[2018-11-26] MEDS: FERROUS SULFATE 325 MG TABLET. PO SCH ×2 (07:12→13:51)
[2018-11-26] MEDS: metFORMIN 500 MG TABLET PO SCH ×2 (07:12→13:51)
[2018-11-26] MEDS: LACTOBACILLUS RHAMNOSUS GG 1 CAPSULE. PO SCH ×2 (07:13→19:58)
[2018-11-26] MEDS: FUROSEMIDE 20 MG TABLET PO SCH (07:14)
[2018-11-26] MEDS: GABAPENTIN 300 MG CAPSULE. PO SCH ×2 (07:15→19:59)
[2018-11-26] MEDS: POLYETHYLENE GLYCOL 3350 17 GM PACKET. PO SCH (07:15)
--- NOTE | 2018-11-26 07:25 | EKG ---
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
--- NOTE | 2018-11-26 07:33 | CARD ---
MR#: [id number] Date of Study: 11/25/2018 Ordering Physician: NOELLE FERNÁNDEZ, Referring Physician: NOELLE FERNÁNDEZ, Tech: Radha Guadalupe APPROVED REPORT EXAM: Two-dimensional and M-mode echocardiogram with Doppler and color Doppler. Other Information Quality : FairHR: [id number] Technically limited study due to Combative patient INDICATION COPD RISK FACTORS Hyperlipidemia Diabetes 2D DIMENSIONS RVDd3.3 (2.9-3.5cm)Left Atrium(2D)3.4 (1.6-4.0cm) IVSd1.1 (0.7-1.1cm)Aortic Root(2D)2.8 (2.0-3.7cm) LVDd4.7 (3.9-5.9cm)LVOT Diameter2.0 (1.8-2.4cm) PWd1.1 (0.7-1.1cm)LVDs2.7 (2.5-4.0cm) FS (%) 42.2 %SV76.7 ml LVEF(%)73.2 (>50%) Aortic Valve AoV Peak Darian.153.4cm/sAoV VTI30.4cm AO Peak GR.9.4mmHgLVOT VTI 19.51cm AO Mean GR.6mmHg Mitral Valve MV E Gpzaucxf367.3cm/sMV DECEL [id number] MV A Fvtkfisd302.5cm/sE/A Ratio1.1 TDI Lateral E' P. V8.62cm/sMedial E' P. V8.37cm/s E/Lateral E'15.3E/Medial E'15.8 Tricuspid Valve TR P. Lijvwado232xo/sRAP VBUMUBOA5qrCm TR Peak Gr.94acCeNFRP18oaFk Pulmonary Vein S1 Ufqikbtj30.2cm/sS2 Dwfspipq01.85cm/s D2 Vytryijz79.8cm/sPVa [id number] LEFT VENTRICLE The left ventricle is normal size. There is mild concentric left ventricular hypertrophy. The left ve ntricular systolic function is normal. The Ejection Fraction is 60-65%. There is normal LV segmental wall motion. Transmitral Doppler flow pattern is Grade II-pseudonormal filling dynamics. RIGHT VENTRICLE The right ventricle is mildly dilated. There is normal right ventricular wall thickness. The right ve ntricular systolic function is normal. ATRIA The left atrium size is normal. The right atrium is borderline dilated. The interatrial septum is int act with no evidence for an atrial septal defect or patent foramen ovale as noted on 2-D or Doppler i maging. AORTIC VALVE The aortic valve is normal in structure and function. Doppler and Color Flow revealed no significant aortic regurgitation. There is no significant aortic valvular stenosis. MITRAL VALVE The mitral valve is normal in structure and function. There is no evidence of mitral valve prolapse. There is no mitral valve stenosis. Doppler and Color Flow revealed no mitral valve regurgitation note d. TRICUSPID VALVE The tricuspid valve is not well visualized. Doppler and Color Flow revealed trace tricuspid regurgita tion with an estimated PAP of 47 mmHg. There is no tricuspid valve stenosis. PULMONIC VALVE The pulmonic valve is not well visualized. Doppler and Color Flow revealed no pulmonic valvular regur gitation. GREAT VESSELS The aortic root is normal in size. The IVC is normal in size and collapses >50% with inspiration. PERICARDIAL EFFUSION There is no evidence of significant pericardial effusion. Critical Notification Critical Value: No <Conclusion> The left ventricular systolic function is normal. The Ejection Fraction is 60-65%. There is normal LV segmental wall motion. Trace tricuspid regurgitation with an estimated PAP of 47 mmHg. There is no evidence of significant pericardial effusion. Signed by : Noelle Fernández, Electronically Approved : 11/26/2018 07:32:46
[2018-11-26] MEDS: METOPROLOL SUCC 24HR ER 25 MG TAB.ER.24H. PO SCH (08:19)
[2018-11-26] MEDS: IPRATRPIUM/ALBUTEROL 0.5/2.5MG 3 ML NEBU. NEB SCH ×4 (08:19→20:00)
[2018-11-26 08:34] LABS: BASE EXCESS ABG 11 mmol/L (-3-3); HCO3 ABG 39 mmol/L (21-28); PO2 ABG 65 mmHg (65-108); SAT O2 ABG 92 % (92-99)
[2018-11-26] MEDS: INSULIN LISPRO 300 UNITS/3 ML VIAL. SQ SCH ×6 (08:35→16:15)
[2018-11-26 08:37] LABS: PCO2 ABG 75 mmHg (35-46)
[2018-11-26 08:38] LABS: FIO2 ABG 40%
[2018-11-26] MEDS ORDERED: ASPIRIN RECTAL 300 MG SUPP. PR ONE (09:00)
[2018-11-26 09:09] LABS: BASO % 0 % (0-3); EOS % 0 % (0-3); HEMATOCRIT 36.6 % (36.0-47.0); HEMOGLOBIN 11.2 g/dL (12.0-15.5); LYMPH # 0.2 x10^3/uL (1.0-4.8); LYMPH % 3 % (24-48); MEAN CORPUSCULAR HEMOGLOBIN 24 pg (25-35); MEAN CORPUSCULAR HGB CONC 31 g/dL (31-37); MEAN CORPUSCULAR VOLUME 79 fL (79-100); MONO # 0.5 x10^3/uL (0.0-1.1); MONO % 6 % (0-9); NEUT # 7.5 x10^3/uL (1.8-7.7); NEUT % 91 % (31-73); PLATELET COUNT 417 x10^3/uL (140-400); RED BLOOD COUNT 4.62 x10^6/uL (3.50-5.40); RED CELL DISTRIBUTION WIDTH 16.4 % (11.5-14.5); WHITE BLOOD COUNT 8.2 x10^3/uL (4.0-11.0)
[2018-11-26 09:38] LABS: CALCIUM 9.1 mg/dL (8.5-10.1); GFR 56.6; POTASSIUM 4.6 mmol/L (3.5-5.1)
[2018-11-26 10:03] LABS: % LYMPHS 2 % (24-48); % MONOS 8 % (0-10); % SEGS 90 % (35-66); PLT ESTIMATE INCREASED (ADEQUATE)
[2018-11-26 10:04] LABS: ANISOCYTOSIS PRESENT; HYPOCHROMIA SLIGHT
[2018-11-26 10:26] LABS: OVALOCYTES OCC; POLYCHROMASIA OCCASIONAL
--- NOTE | 2018-11-26 11:08 | PDOC ---
ARIANNA MEJIA FACIAL OPERATOR 11/26/18 1108: CARDIO Progress Notes Date and Time Date of Service 11/26/2018 Time of Evaluation 0950 Subjective Subjective: Other (restless, confuse) Vitals Vitals Vital Signs Date Time Temp Pulse Resp B/P (MAP) Pulse Ox O2 Delivery O2 Flow Rate FiO2 11/26/18 08:19 95 BiPAP/CPAP 11/26/18 08:00 15.0 11/26/18 07:00 106 22 155/68 (97) 11/26/18 02:50 97.7 97.7 Weight Weight [ ] Input and Output Intake and Output Intake and Output 11/26/18 07:00 Intake Total 125 ml Output Total 1150 ml Balance -1025 ml Intake Oral 0 ml IV Total 125 ml Output Urine Total 1150 ml Laboratory Labs Laboratory Tests Test 11/25/18 11:37 11/25/18 12:15 11/25/18 16:48 11/25/18 20:09 Glucose (Fingerstick) 269 mg/dL (70-99) 304 mg/dL (70-99) 263 mg/dL (70-99) O2 Saturation 91 % (92-99) Arterial Blood pH 7.31 (7.35-7.45) Arterial Blood pCO2 at Patient Temp 63 mmHg (35-46) Arterial Blood pO2 at Patient Temp 67 mmHg (65-108) Arterial Blood HCO3 31 mmol/L (21-28) Arterial Blood Base Excess 3 mmol/L (-3-3) FiO2 40 Test 11/26/18 07:52 11/26/18 08:20 11/26/18 08:40 Glucose (Fingerstick) 340 mg/dL (70-99) O2 Saturation 92 % (92-99) Arterial Blood pH 7.33 (7.35-7.45) Arterial Blood pCO2 at Patient Temp 75 mmHg (35-46) Arterial Blood pO2 at Patient Temp 65 mmHg (65-108) Arterial Blood HCO3 39 mmol/L (21-28) Arterial Blood Base Excess 11 mmol/L (-3-3) FiO2 40% White Blood Count 8.2 x10^3/uL (4.0-11.0) Red Blood Count 4.62 x10^6/uL (3.50-5.40) Hemoglobin 11.2 g/dL (12.0-15.5) Hematocrit 36.6 % (36.0-47.0) Mean Corpuscular Volume 79 fL (79-100) Mean Corpuscular Hemoglobin 24 pg (25-35) Mean Corpuscular Hemoglobin Concent 31 g/dL (31-37) Red Cell Distribution Width 16.4 % (11.5-14.5) Platelet Count 417 x10^3/uL (140-400) Neutrophils (%) (Auto) 91 % (31-73) Lymphocytes (%) (Auto) 3 % (24-48) Monocytes (%) (Auto) 6 % (0-9) Eosinophils (%) (Auto) 0 % (0-3) Basophils (%) (Auto) 0 % (0-3) Neutrophils # (Auto) 7.5 x10^3/uL (1.8-7.7) Lymphocytes # (Auto) 0.2 x10^3/uL (1.0-4.8) Monocytes # (Auto) 0.5 x10^3/uL (0.0-1.1) Eosinophils # (Auto) 0.0 x10^3/uL (0.0-0.7) Basophils # (Auto) 0.0 x10^3/uL (0.0-0.2) Segmented Neutrophils % 90 % (35-66) Lymphocytes % 2 % (24-48) Monocytes % 8 % (0-10) Platelet Estimate Increased (ADEQUATE) Polychromasia Occasional Hypochromasia Slight Basophilic Stippling Present Anisocytosis Present Ovalocytes Occ Sodium Level 142 mmol/L (136-145) Potassium Level 4.6 mmol/L (3.5-5.1) Chloride Level 97 mmol/L (98-107) Carbon Dioxide Level 37 mmol/L (21-32) Anion Gap 8 (6-14) Blood Urea Nitrogen 29 mg/dL (7-20) Creatinine 1.0 mg/dL (0.6-1.0) Estimated GFR (Cockcroft-Gault) 56.6 Glucose Level 395 mg/dL (70-99) Calcium Level 9.1 mg/dL (8.5-10.1) Physical Exam HEENT: Neck Supple W Full Motion Chest: Symmetric LUNGS: Other (diminished/bipap in place) Heart: RRR (SR/ST with PACs) Abdomen: Other (obese) Extremities: Other (1+ bilateral LE pitting edema) Neurology: other (restless; on 1:1 supervision; hand mittens in place) Assessment Assessment 1. Acute hypercapnic respiratory failure secondary to AECOPD Continue current treatment per pulmonary team. 2. Atrial fibrillation with RVR: Converted <48 hrs to SR/ST with PACs. This is new, likely induced by pulmonary 3. Mild acute diastolic CHF: precipitated by COPD and RVR. EF nml 4. Metabolic encephalopathy with underlying mental retardation 5. HTN: controlled 6. DM2/HLP Recommendations 1. Currently on 1:1 supervision, Continue bipap 2. Pt is currently NPO, continue cardizem drip for now while NPO. Rectal ASA x1 then convert to PO if able. 3. TSH, Mg 4. will need MCOT to ascertain AFIB burden 5. supportive care NOELLE RYAN MD 11/26/182053: CARDIO Progress Notes Assessment Assessment Patient seen and examined. Agree with [employer] [facility]'s assessment and plan. Patient presently in SR. Continue cardizem gtt since patient is not able to take oral meds yet Agree with outpatient event monitor to assess AF burden 2D echo showed normal LVF Continue current management of ARF per pulm team ARIANNA MEJIA APRN Nov 26, 2018 11:08 NOELLE RYAN MD Nov 26, 2018 20:54
--- NOTE | 2018-11-26 11:09 | PDOC ---
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 She opens her eyes with verbal stimuli, but her baseline is she is alert to her name CONSULT PULM HOLD ANTIPSYCHOTIC MEDS FOR NOW HOLD [facility]ANTUS ACCUCHECKS CT HEAD ABG noted PALLIATIVE CARE CONSULT TO DEFINE GOALS OF TREATMENT 38 MIN PT EXAM, CHART REVIEW, > 50% OF TIME SPENT WITH CHART REVIEW, PT EXAM, PT CARE COORDINATION Vitals Vitals Vital Signs Date Time Temp Pulse Resp B/P (MAP) Pulse Ox O2 Delivery O2 Flow Rate FiO2 11/26/18 08:19 95 BiPAP/CPAP 11/26/18 08:00 15.0 11/26/18 07:00 106 22 155/68 (97) 11/26/18 02:50 97.7 97.7 Physical Exam Physical Exam Eyes: PERRLA, EOMI, conjunctiva normal, no discharge. [] Neck: Normal range of motion, no tenderness, supple, no stridor. [] Cardiovascular: Sinus tachycardia, regular rhythm, no murmur [] Lungs & Thorax: Bilateral breath sounds equal but wheezing. ] Abdomen: Bowel sounds normal, soft, no tenderness, no masses, no pulsatile masses. [] Skin: Warm, dry, no erythema, no rash. [] Back: No tenderness, no CVA tenderness. [] Extremities: No tenderness, no cyanosis, no clubbing, General: Cooperative, No acute distress, mild distress Heart: Regular rate Lungs: Clear Abdomen: Normal bowel sounds, Soft, No tenderness Extremities: No cyanosis Labs LABS Laboratory Tests Test 11/25/18 11:37 11/25/18 12:15 11/25/18 16:48 11/25/18 20:09 Glucose (Fingerstick) 269 mg/dL (70-99) 304 mg/dL (70-99) 263 mg/dL (70-99) O2 Saturation 91 % (92-99) Arterial Blood pH 7.31 (7.35-7.45) Arterial Blood pCO2 at Patient Temp 63 mmHg (35-46) Arterial Blood pO2 at Patient Temp 67 mmHg (65-108) Arterial Blood HCO3 31 mmol/L (21-28) Arterial Blood Base Excess 3 mmol/L (-3-3) FiO2 40 Test 11/26/18 07:52 11/26/18 08:20 11/26/18 08:40 Glucose (Fingerstick) 340 mg/dL (70-99) O2 Saturation 92 % (92-99) Arterial Blood pH 7.33 (7.35-7.45) Arterial Blood pCO2 at Patient Temp 75 mmHg (35-46) Arterial Blood pO2 at Patient Temp 65 mmHg (65-108) Arterial Blood HCO3 39 mmol/L (21-28) Arterial Blood Base Excess 11 mmol/L (-3-3) FiO2 40% White Blood Count 8.2 x10^3/uL (4.0-11.0) Red Blood Count 4.62 x10^6/uL (3.50-5.40) Hemoglobin 11.2 g/dL (12.0-15.5) Hematocrit 36.6 % (36.0-47.0) Mean Corpuscular Volume 79 fL (79-100) Mean Corpuscular Hemoglobin 24 pg (25-35) Mean Corpuscular Hemoglobin Concent 31 g/dL (31-37) Red Cell Distribution Width 16.4 % (11.5-14.5) Platelet Count 417 x10^3/uL (140-400) Neutrophils (%) (Auto) 91 % (31-73) Lymphocytes (%) (Auto) 3 % (24-48) Monocytes (%) (Auto) 6 % (0-9) Eosinophils (%) (Auto) 0 % (0-3) Basophils (%) (Auto) 0 % (0-3) Neutrophils # (Auto) 7.5 x10^3/uL (1.8-7.7) Lymphocytes # (Auto) 0.2 x10^3/uL (1.0-4.8) Monocytes # (Auto) 0.5 x10^3/uL (0.0-1.1) Eosinophils # (Auto) 0.0 x10^3/uL (0.0-0.7) Basophils # (Auto) 0.0 x10^3/uL (0.0-0.2) Segmented Neutrophils % 90 % (35-66) Lymphocytes % 2 % (24-48) Monocytes % 8 % (0-10) Platelet Estimate Increased (ADEQUATE) Polychromasia Occasional Hypochromasia Slight Basophilic Stippling Present Anisocytosis Present Ovalocytes Occ Sodium Level 142 mmol/L (136-145) Potassium Level 4.6 mmol/L (3.5-5.1) Chloride Level 97 mmol/L (98-107) Carbon Dioxide Level 37 mmol/L (21-32) Anion Gap 8 (6-14) Blood Urea Nitrogen 29 mg/dL (7-20) Creatinine 1.0 mg/dL (0.6-1.0) Estimated GFR (Cockcroft-Gault) 56.6 Glucose Level 395 mg/dL (70-99) Calcium Level 9.1 mg/dL (8.5-10.1) Assessment and Plan Assessmemt and Plan Problems Medical Problems: (1) Altered mental status Status: Acute (2) Atrial fibrillation with RVR Status: Acute (3) COPD (chronic obstructive pulmonary disease) Status: Chronic (4) COPD exacerbation Status: Acute (5) hypercapnia Status: Acute (6) GERD (gastroesophageal reflux disease) Status: Chronic (7) HLD (hyperlipidemia) Status: Chronic (8) HTN (hypertension) Status: Chronic (9) Hypercapnia Status: Acute (10) Hypercapnic respiratory failure Status: Acute (11) Uncontrolled diabetes mellitus Status: Chronic (12) UTI (urinary tract infection) Status: Acute Comment Review of Relevant I have reviewed the following items ana (where applicable) has been applied. Labs Laboratory Tests Test 11/24/18 11:32 11/24/18 12:07 11/24/18 17:44 11/24/18 20:37 Urine Collection Type Unknown Urine Color Yellow Urine Clarity Cloudy Urine pH 5.5 Urine Specific Index 1.015 Urine Protein 30 mg/dL (NEG-TRACE) Urine Glucose (UA) Negative mg/dL (NEG) Urine Ketones (Stick) Negative mg/dL (NEG) Urine Blood Small (NEG) Urine Nitrite Negative (NEG) Urine Bilirubin Negative (NEG) Urine Urobilinogen Dipstick 1.0 mg/dL (0.2 mg/dL) Urine Leukocyte Esterase Large (NEG) Urine RBC Occ /HPF (0-2) Urine WBC 5-10 /HPF (0-4) Urine Bacteria Few /HPF (0-FEW) Urine Opiates Screen Neg (NEG) Urine Methadone Screen Neg (NEG) Urine Barbiturates Neg (NEG) Urine Phencyclidine Screen Neg (NEG) Urine Amphetamine/Methamphetamine Neg (NEG) Urine Benzodiazepines Screen Neg (NEG) Urine Cocaine Screen Neg (NEG) Urine Cannabinoids Screen Neg (NEG) Urine Ethyl Alcohol Neg (NEG) White Blood Count 9.9 x10^3/uL (4.0-11.0) Red Blood Count 4.93 x10^6/uL (3.50-5.40) Hemoglobin 12.0 g/dL (12.0-15.5) Hematocrit 39.0 % (36.0-47.0) Mean Corpuscular Volume 79 fL (79-100) Mean Corpuscular Hemoglobin 24 pg (25-35) Mean Corpuscular Hemoglobin Concent 31 g/dL (31-37) Red Cell Distribution Width 16.3 % (11.5-14.5) Platelet Count 317 x10^3/uL (140-400) Neutrophils (%) (Auto) 83 % (31-73) Lymphocytes (%) (Auto) 7 % (24-48) Monocytes (%) (Auto) 11 % (0-9) Eosinophils (%) (Auto) 0 % (0-3) Basophils (%) (Auto) 0 % (0-3) Neutrophils # (Auto) 8.2 x10^3/uL (1.8-7.7) Lymphocytes # (Auto) 0.7 x10^3/uL (1.0-4.8) Monocytes # (Auto) 1.1 x10^3/uL (0.0-1.1) Eosinophils # (Auto) 0.0 x10^3/uL (0.0-0.7) Basophils # (Auto) 0.0 x10^3/uL (0.0-0.2) Prothrombin Time 14.6 SEC (11.7-14.0) Prothromb Time International Ratio 1.2 (0.8-1.1) Activated Partial Thromboplast Time 21 SEC (24-38) Sodium Level 135 mmol/L (136-145) Potassium Level 5.3 mmol/L (3.5-5.1) Chloride Level 94 mmol/L (98-107) Carbon Dioxide Level 35 mmol/L (21-32) Anion Gap 6 (6-14) Blood Urea Nitrogen 51 mg/dL (7-20) Creatinine 1.4 mg/dL (0.6-1.0) Estimated GFR (Cockcroft-Gault) 38.4 BUN/Creatinine Ratio 36 (6-20) Glucose Level 175 mg/dL (70-99) Calcium Level 8.7 mg/dL (8.5-10.1) Magnesium Level 1.6 mg/dL (1.8-2.4) Total Bilirubin 0.5 mg/dL (0.2-1.0) Aspartate Amino Transf (AST/SGOT) 384 U/L (15-37) Alanine Aminotransferase (ALT/SGPT) 928 U/L (14-59) Alkaline Phosphatase 73 U/L (46-116) Ammonia 38 mcmol/L (11-34) Troponin I Quantitative < 0.017 ng/mL (0.000-0.055) QV-Kcj-A-Type Natriuretic Peptide 5113 pg/mL (0-124) Total Protein 7.0 g/dL (6.4-8.2) Albumin 3.3 g/dL (3.4-5.0) Albumin/Globulin Ratio 0.9 (1.0-1.7) Glucose (Fingerstick) 139 mg/dL (70-99) 132 mg/dL (70-99) Test 11/24/18 22:40 11/25/18 06:00 11/25/18 08:04 11/25/18 11:37 O2 Saturation 94 % (92-99) 90 % (92-99) Arterial Blood pH 7.28 (7.35-7.45) 7.25 (7.35-7.45) Arterial Blood pCO2 at Patient Temp 74 mmHg (35-46) 80 mmHg (35-46) Arterial Blood pO2 at Patient Temp 77 mmHg (65-108) 67 mmHg (65-108) Arterial Blood HCO3 34 mmol/L (21-28) 34 mmol/L (21-28) Arterial Blood Base Excess 5 mmol/L (-3-3) 5 mmol/L (-3-3) FiO2 45% 45 Glucose (Fingerstick) 258 mg/dL (70-99) 269 mg/dL (70-99) Test 11/25/18 12:15 11/25/18 16:48 11/25/18 20:09 11/26/18 07:52 O2 Saturation 91 % (92-99) Arterial Blood pH 7.31 (7.35-7.45) Arterial Blood pCO2 at Patient Temp 63 mmHg (35-46) Arterial Blood pO2 at Patient Temp 67 mmHg (65-108) Arterial Blood HCO3 31 mmol/L (21-28) Arterial Blood Base Excess 3 mmol/L (-3-3) FiO2 40 Glucose (Fingerstick) 304 mg/dL (70-99) 263 mg/dL (70-99) 340 mg/dL (70-99) Test 11/26/18 08:20 11/26/18 08:40 O2 Saturation 92 % (92-99) Arterial Blood pH 7.33 (7.35-7.45) Arterial Blood pCO2 at Patient Temp 75 mmHg (35-46) Arterial Blood pO2 at Patient Temp 65 mmHg (65-108) Arterial Blood HCO3 39 mmol/L (21-28) Arterial Blood Base Excess 11 mmol/L (-3-3) FiO2 40% White Blood Count 8.2 x10^3/uL (4.0-11.0) Red Blood Count 4.62 x10^6/uL (3.50-5.40) Hemoglobin 11.2 g/dL (12.0-15.5) Hematocrit 36.6 % (36.0-47.0) Mean Corpuscular Volume 79 fL (79-100) Mean Corpuscular Hemoglobin 24 pg (25-35) Mean Corpuscular Hemoglobin Concent 31 g/dL (31-37) Red Cell Distribution Width 16.4 % (11.5-14.5) Platelet Count 417 x10^3/uL (140-400) Neutrophils (%) (Auto) 91 % (31-73) Lymphocytes (%) (Auto) 3 % (24-48) Monocytes (%) (Auto) 6 % (0-9) Eosinophils (%) (Auto) 0 % (0-3) Basophils (%) (Auto) 0 % (0-3) Neutrophils # (Auto) 7.5 x10^3/uL (1.8-7.7) Lymphocytes # (Auto) 0.2 x10^3/uL (1.0-4.8) Monocytes # (Auto) 0.5 x10^3/uL (0.0-1.1) Eosinophils # (Auto) 0.0 x10^3/uL (0.0-0.7) Basophils # (Auto) 0.0 x10^3/uL (0.0-0.2) Segmented Neutrophils % 90 % (35-66) Lymphocytes % 2 % (24-48) Monocytes % 8 % (0-10) Platelet Estimate Increased (ADEQUATE) Polychromasia Occasional Hypochromasia Slight Basophilic Stippling Present Anisocytosis Present Ovalocytes Occ Sodium Level 142 mmol/L (136-145) Potassium Level 4.6 mmol/L (3.5-5.1) Chloride Level 97 mmol/L (98-107) Carbon Dioxide Level 37 mmol/L (21-32) Anion Gap 8 (6-14) Blood Urea Nitrogen 29 mg/dL (7-20) Creatinine 1.0 mg/dL (0.6-1.0) Estimated GFR (Cockcroft-Gault) 56.6 Glucose Level 395 mg/dL (70-99) Calcium Level 9.1 mg/dL (8.5-10.1) Laboratory Tests Test 11/25/18 11:37 11/25/18 12:15 11/25/18 16:48 11/25/18 20:09 Glucose (Fingerstick) 269 mg/dL (70-99) 304 mg/dL (70-99) 263 mg/dL (70-99) O2 Saturation 91 % (92-99) Arterial Blood pH 7.31 (7.35-7.45) Arterial Blood pCO2 at Patient Temp 63 mmHg (35-46) Arterial Blood pO2 at Patient Temp 67 mmHg (65-108) Arterial Blood HCO3 31 mmol/L (21-28) Arterial Blood Base Excess 3 mmol/L (-3-3) FiO2 40 Test 11/26/18 07:52 11/26/18 08:20 11/26/18 08:40 Glucose (Fingerstick) 340 mg/dL (70-99) O2 Saturation 92 % (92-99) Arterial Blood pH 7.33 (7.35-7.45) Arterial Blood pCO2 at Patient Temp 75 mmHg (35-46) Arterial Blood pO2 at Patient Temp 65 mmHg (65-108) Arterial Blood HCO3 39 mmol/L (21-28) Arterial Blood Base Excess 11 mmol/L (-3-3) FiO2 40% White Blood Count 8.2 x10^3/uL (4.0-11.0) Red Blood Count 4.62 x10^6/uL (3.50-5.40) Hemoglobin 11.2 g/dL (12.0-15.5) Hematocrit 36.6 % (36.0-47.0) Mean Corpuscular Volume 79 fL (79-100) Mean Corpuscular Hemoglobin 24 pg (25-35) Mean Corpuscular Hemoglobin Concent 31 g/dL (31-37) Red Cell Distribution Width 16.4 % (11.5-14.5) Platelet Count 417 x10^3/uL (140-400) Neutrophils (%) (Auto) 91 % (31-73) Lymphocytes (%) (Auto) 3 % (24-48) Monocytes (%) (Auto) 6 % (0-9) Eosinophils (%) (Auto) 0 % (0-3) Basophils (%) (Auto) 0 % (0-3) Neutrophils # (Auto) 7.5 x10^3/uL (1.8-7.7) Lymphocytes # (Auto) 0.2 x10^3/uL (1.0-4.8) Monocytes # (Auto) 0.5 x10^3/uL (0.0-1.1) Eosinophils # (Auto) 0.0 x10^3/uL (0.0-0.7) Basophils # (Auto) 0.0 x10^3/uL (0.0-0.2) Segmented Neutrophils % 90 % (35-66) Lymphocytes % 2 % (24-48) Monocytes % 8 % (0-10) Platelet Estimate Increased (ADEQUATE) Polychromasia Occasional Hypochromasia Slight Basophilic Stippling Present Anisocytosis Present Ovalocytes Occ Sodium Level 142 mmol/L (136-145) Potassium Level 4.6 mmol/L (3.5-5.1) Chloride Level 97 mmol/L (98-107) Carbon Dioxide Level 37 mmol/L (21-32) Anion Gap 8 (6-14) Blood Urea Nitrogen 29 mg/dL (7-20) Creatinine 1.0 mg/dL (0.6-1.0) Estimated GFR (Cockcroft-Gault) 56.6 Glucose Level 395 mg/dL (70-99) Calcium Level 9.1 mg/dL (8.5-10.1) Medications Current Medications Albuterol/ Ipratropium (Duoneb) 3 ml 1X ONCE NEB Last administered on 11/24/18at 12:22; Start 11/24/18 at 11:15; Stop 11/24/18 at 11:17; Status DC Ceftriaxone Sodium (Rocephin) 1 gm 1X ONCE IVP Last administered on 11/24/18at 13:00; Start 11/24/18 at 12:45; Stop 11/24/18 at 12:46; Status DC Albuterol/ Ipratropium (Duoneb) 3 ml 1X ONCE NEB Last administered on 11/24/18at 14:43; Start 11/24/18 at 12:45; Stop 11/24/18 at 12:46; Status DC Ondansetron HCl (Zofran) 4 mg PRN Q8HRS PRN IV NAUSEA/VOMITING; Start 11/24/18 at 12:45; Stop 11/25/18 at 12:44; Status DC Sodium Chloride 1,000 ml @ 100 mls/hr Q10H IV Last administered on 11/24/18at 22:39; Start 11/24/18 at 12:36; Stop 11/25/18 at 12:35; Status DC Albuterol/ Ipratropium (Duoneb) 3 ml RTQID NEB Last administered on 11/25/18at 15:27; Start 11/24/18 at 16:00; Stop 11/25/18 at 15:59; Status DC Lorazepam (Ativan Inj) 0.5 mg 1X ONCE IV Last administered on 11/24/18at 17:03; Start 11/24/18 at 16:30; Stop 11/24/18 at 16:31; Status DC Acetaminophen (Tylenol) 650 mg PRN Q6HRS PRN PO PAIN; Start 11/24/18 at 17:30 Ferrous Sulfate (Feosol) 325 mg BIDWMEALS PO ; Start 11/24/18 at 17:30 Furosemide (Lasix) 20 mg DAILY PO ; Start 11/25/18 at 09:00 Gabapentin (Neurontin) 300 mg BID PO ; Start 11/24/18 at 21:00 Insulin Human Lispro (HumaLOG) 8 units TIDWMEALS SQ Last administered on 11/26/18at 08:35; Start 11/25/18 at 08:00 Metformin HCl (Glucophage) 1,000 mg BIDWMEALS PO ; Start 11/24/18 at 17:30 Metoprolol Succinate (Toprol Xl) 50 mg DAILY PO ; Start 11/25/18 at 09:00 Polyethylene Glycol (miraLAX PACKET) 17 gm DAILY PO ; Start 11/25/18 at 09:00 Senna/Docusate Sodium (Senna Plus) 1 tab PRN BID PRN PO CONSTIPATION; Start 11/24/18 at 17:30 Simvastatin (Zocor) 10 mg HS PO ; Start 11/24/18 at 21:00 Non-Formulary Medication (Albuterol Sulfate (Albuterol Sulfate Hfa Inhaler)) 2 puff Q4HRS INH ; Start 11/24/18 at 20:00; Status UNV Insulin Glargine (Lantus Syringe) 25 unit QHS SQ Last administered on 11/25/18at 20:46; Start 11/24/18 at 21:00; Stop 11/25/18 at 22:00; Status DC Non-Formulary Medication (Lurasidone Hcl (Latuda)) 60 mg HS PO ; Start 11/24/18 at 21:00; Stop 11/25/18 at 11:26; Status DC Diltiazem HCl (Cardizem Iv Push) 10 mg 1X ONCE IVP Last administered on 11/24/18at 18:49; Start 11/24/18 at 18:30; Stop 11/24/18 at 19:08; Status DC Diltiazem HCl 125 mg/Dextrose 125 ml @ 5 mls/hr CONT PRN IV . Last administered on 11/26/18at 04:24; Start 11/24/18 at 18:30 Methylprednisolone Sodium Succinate (SOLU-Medrol 40MG VIAL) 80 mg Q8HRS IV Last administered on 11/26/18at 06:11; Start 11/25/18 at 06:00 Methylprednisolone Sodium Succinate (SOLU-Medrol 40MG VIAL) 80 mg 1X ONCE IV Last administered on 11/24/18at 23:09; Start 11/24/18 at 23:00; Stop 11/24/18 at 23:01; Status DC Lorazepam (Ativan Inj) 0.5 mg PRN Q6HRS PRN IV ANXIETY / AGITATION Last administered on 11/26/18at 08:35; Start 11/25/18 at 02:45 Furosemide (Lasix) 20 mg 1X ONCE IVP Last administered on 11/25/18at 08:40; Start 11/25/18 at 07:30; Stop 11/25/18 at 07:31; Status DC Ceftriaxone Sodium (Rocephin) 1 gm Q24H IVP Last administered on 11/25/18at 12:22; Start 11/25/18 at 13:00 Lactobacillus Rhamnosus (Culturelle) 1 cap BID PO ; Start 11/25/18 at 09:00 Lurasidone HCl (Latuda) 60 mg QHS PO ; Start 11/25/18 at 21:00 Insulin Glargine (Lantus Syringe) 25 unit QHS SQ ; Start 11/26/18 at 21:00 Insulin Human Lispro (HumaLOG) 0-7 UNITS TIDWMEALS SQ Last administered on 11/26/18at 08:35; Start 11/25/18 at 17:00 Dextrose (Dextrose 50%-Water Syringe) 12.5 gm PRN Q15MIN PRN IV SEE COMMENTS; Start 11/25/18 at 17:00 Dextrose 250 ml PRN Q15MIN PRN IV SEE COMMENTS; Start 11/25/18 at 17:00 Albuterol/ Ipratropium (Duoneb) 3 ml RTQID NEB Last administered on 11/26/18at 08:19; Start 11/25/18 at 20:00 Aspirin (Aspirin Rectal Supp) 300 mg 1X ONCE NH Last administered on 11/26/18at 10:36; Start 11/26/18 at 09:00; Stop 11/26/18 at 09:01; Status DC Aspirin (Ecotrin) 81 mg DAILYWBKFT PO ; Start 11/27/18 at 08:00; Status UNV Active Scripts Active Proair Hfa Inhaler (Albuterol Sulfate) 8.5 Gm Hfa.aer.ad 1 Puff INH PRN Q6HRS PRN Proair Hfa Inhaler (Albuterol Sulfate) 8.5 Gm Hfa.aer.ad 2 Puff INH PRN Q6HRS PRN Colace 2-in-1 Tablet (Sennosides/Docusate Sodium) 1 Each Tablet 1 Each PO BID PRN Glucophage (Metformin Hcl) 500 Mg Tablet 1,000 Mg PO BIDWMEALS Reported Lasix (Furosemide) 20 Mg Tablet 20 Mg PO DAILY Metoprolol Succinate ( Xl ) (Metoprolol Succinate) 25 Mg Tab.er.24h 50 Mg PO DAILY Acetaminophen 650 Mg/20.3 Ml Solution 650 Mg FT PRN PRN Miralax (Polyethylene Glycol 3350) 17 Gm Powd.pack 1 Pkt PO DAILY Ferrous Sulfate 325 Mg Tablet 325 Mg PO BID Seroquel (Quetiapine Fumarate) 200 Mg Tablet 200 Mg PO HS Melatonin 3 Mg Tablet 3 Mg PO HS Simvastatin 10 Mg Tablet 10 Mg PO HS Symbicort 160-4.5 Mcg Inhaler (Budesonide/Formoterol Fumarate) 10.2 Gm Hfa.aer.ad 2 Puff IH BID Albuterol Sulfate Hfa Inhaler (Albuterol Sulfate) 8.5 Gm Hfa.aer.ad 2 Puff INH Q4HRS Vitals/I & O Vital Sign - Last 24 Hours 11/25/18 11/25/18 11/25/18 11/25/18 11:30 15:00 15:23 17:35 Pulse 96 Resp 20 B/P (MAP) 144/66 (92) Pulse Ox 92 92 97 O2 Delivery BiPAP/CPAP BiPAP/CPAP BiPAP/CPAP BiPAP/CPAP 11/25/18 11/25/18 11/25/18 11/25/18 19:04 19:50 20:14 22:48 Temp 99.7 99.1 99.7 99.1 Pulse 101 98 Resp 26 20 B/P (MAP) 140/66 (90) 160/63 (95) Pulse Ox 95 95 94 O2 Delivery BiPAP/CPAP BiPAP/CPAP Bi-pap BiPAP/CPAP O2 Flow Rate 15.0 11/25/18 11/26/18 11/26/18 11/26/18 22:51 02:24 02:50 05:22 Temp 97.7 97.7 Pulse 96 Resp 20 B/P (MAP) 143/64 (90) Pulse Ox 95 93 95 96 O2 Delivery BiPAP/CPAP BiPAP/CPAP BiPAP/CPAP BiPAP/CPAP 11/26/18 11/26/18 11/26/18 07:00 08:00 08:19 Pulse 106 Resp 22 B/P (MAP) 155/68 (97) Pulse Ox 96 95 O2 Delivery BiPAP/CPAP Bi-pap BiPAP/CPAP O2 Flow Rate 15.0 Intake and Output 11/25/18 11/25/18 11/26/18 14:59 22:59 06:59 Intake Total 125 ml Output Total 1000 ml 150 ml Balance 125 ml -1000 ml -150 ml JEFFREY ROBERTO MD Nov 26, 2018 11:09
--- NOTE | 2018-11-26 12:56 | PDOC ---
PULMONARY PROGRESS NOTES Subjective remains on BIPAP still with resp acidosis Vitals Vital Signs Date Time Temp Pulse Resp B/P (MAP) Pulse Ox O2 Delivery O2 Flow Rate FiO2 11/26/18 11:23 95 BiPAP/CPAP 11/26/18 11:00 98.9 111 22 157/81 (106) 98.9 11/26/18 08:00 15.0 General: Confused Lungs: Other (decrease) Cardiovascular: S1 Abdomen: Soft Neuro Exam: Alert Extremities: Other (1+edema) Labs Laboratory Tests Test 11/24/18 17:44 11/24/18 20:37 11/24/18 22:40 11/25/18 06:00 Glucose (Fingerstick) 139 mg/dL (70-99) 132 mg/dL (70-99) O2 Saturation 94 % (92-99) 90 % (92-99) Arterial Blood pH 7.28 (7.35-7.45) 7.25 (7.35-7.45) Arterial Blood pCO2 at Patient Temp 74 mmHg (35-46) 80 mmHg (35-46) Arterial Blood pO2 at Patient Temp 77 mmHg (65-108) 67 mmHg (65-108) Arterial Blood HCO3 34 mmol/L (21-28) 34 mmol/L (21-28) Arterial Blood Base Excess 5 mmol/L (-3-3) 5 mmol/L (-3-3) FiO2 45% 45 Test 11/25/18 08:04 11/25/18 11:37 11/25/18 12:15 11/25/18 16:48 Glucose (Fingerstick) 258 mg/dL (70-99) 269 mg/dL (70-99) 304 mg/dL (70-99) O2 Saturation 91 % (92-99) Arterial Blood pH 7.31 (7.35-7.45) Arterial Blood pCO2 at Patient Temp 63 mmHg (35-46) Arterial Blood pO2 at Patient Temp 67 mmHg (65-108) Arterial Blood HCO3 31 mmol/L (21-28) Arterial Blood Base Excess 3 mmol/L (-3-3) FiO2 40 Test 11/25/18 20:09 11/26/18 07:52 11/26/18 08:20 11/26/18 08:40 Glucose (Fingerstick) 263 mg/dL (70-99) 340 mg/dL (70-99) O2 Saturation 92 % (92-99) Arterial Blood pH 7.33 (7.35-7.45) Arterial Blood pCO2 at Patient Temp 75 mmHg (35-46) Arterial Blood pO2 at Patient Temp 65 mmHg (65-108) Arterial Blood HCO3 39 mmol/L (21-28) Arterial Blood Base Excess 11 mmol/L (-3-3) FiO2 40% White Blood Count 8.2 x10^3/uL (4.0-11.0) Red Blood Count 4.62 x10^6/uL (3.50-5.40) Hemoglobin 11.2 g/dL (12.0-15.5) Hematocrit 36.6 % (36.0-47.0) Mean Corpuscular Volume 79 fL (79-100) Mean Corpuscular Hemoglobin 24 pg (25-35) Mean Corpuscular Hemoglobin Concent 31 g/dL (31-37) Red Cell Distribution Width 16.4 % (11.5-14.5) Platelet Count 417 x10^3/uL (140-400) Neutrophils (%) (Auto) 91 % (31-73) Lymphocytes (%) (Auto) 3 % (24-48) Monocytes (%) (Auto) 6 % (0-9) Eosinophils (%) (Auto) 0 % (0-3) Basophils (%) (Auto) 0 % (0-3) Neutrophils # (Auto) 7.5 x10^3/uL (1.8-7.7) Lymphocytes # (Auto) 0.2 x10^3/uL (1.0-4.8) Monocytes # (Auto) 0.5 x10^3/uL (0.0-1.1) Eosinophils # (Auto) 0.0 x10^3/uL (0.0-0.7) Basophils # (Auto) 0.0 x10^3/uL (0.0-0.2) Segmented Neutrophils % 90 % (35-66) Lymphocytes % 2 % (24-48) Monocytes % 8 % (0-10) Platelet Estimate Increased (ADEQUATE) Polychromasia Occasional Hypochromasia Slight Basophilic Stippling Present Anisocytosis Present Ovalocytes Occ Sodium Level 142 mmol/L (136-145) Potassium Level 4.6 mmol/L (3.5-5.1) Chloride Level 97 mmol/L (98-107) Carbon Dioxide Level 37 mmol/L (21-32) Anion Gap 8 (6-14) Blood Urea Nitrogen 29 mg/dL (7-20) Creatinine 1.0 mg/dL (0.6-1.0) Estimated GFR (Cockcroft-Gault) 56.6 Glucose Level 395 mg/dL (70-99) Calcium Level 9.1 mg/dL (8.5-10.1) Magnesium Level 1.7 mg/dL (1.8-2.4) Thyroid Stimulating Hormone (TSH) 0.470 uIU/mL (0.358-3.74) Laboratory Tests Test 11/25/18 16:48 11/25/18 20:09 11/26/18 07:52 11/26/18 08:20 Glucose (Fingerstick) 304 mg/dL (70-99) 263 mg/dL (70-99) 340 mg/dL (70-99) O2 Saturation 92 % (92-99) Arterial Blood pH 7.33 (7.35-7.45) Arterial Blood pCO2 at Patient Temp 75 mmHg (35-46) Arterial Blood pO2 at Patient Temp 65 mmHg (65-108) Arterial Blood HCO3 39 mmol/L (21-28) Arterial Blood Base Excess 11 mmol/L (-3-3) FiO2 40% Test 11/26/18 08:40 White Blood Count 8.2 x10^3/uL (4.0-11.0) Red Blood Count 4.62 x10^6/uL (3.50-5.40) Hemoglobin 11.2 g/dL (12.0-15.5) Hematocrit 36.6 % (36.0-47.0) Mean Corpuscular Volume 79 fL (79-100) Mean Corpuscular Hemoglobin 24 pg (25-35) Mean Corpuscular Hemoglobin Concent 31 g/dL (31-37) Red Cell Distribution Width 16.4 % (11.5-14.5) Platelet Count 417 x10^3/uL (140-400) Neutrophils (%) (Auto) 91 % (31-73) Lymphocytes (%) (Auto) 3 % (24-48) Monocytes (%) (Auto) 6 % (0-9) Eosinophils (%) (Auto) 0 % (0-3) Basophils (%) (Auto) 0 % (0-3) Neutrophils # (Auto) 7.5 x10^3/uL (1.8-7.7) Lymphocytes # (Auto) 0.2 x10^3/uL (1.0-4.8) Monocytes # (Auto) 0.5 x10^3/uL (0.0-1.1) Eosinophils # (Auto) 0.0 x10^3/uL (0.0-0.7) Basophils # (Auto) 0.0 x10^3/uL (0.0-0.2) Segmented Neutrophils % 90 % (35-66) Lymphocytes % 2 % (24-48) Monocytes % 8 % (0-10) Platelet Estimate Increased (ADEQUATE) Polychromasia Occasional Hypochromasia Slight Basophilic Stippling Present Anisocytosis Present Ovalocytes Occ Sodium Level 142 mmol/L (136-145) Potassium Level 4.6 mmol/L (3.5-5.1) Chloride Level 97 mmol/L (98-107) Carbon Dioxide Level 37 mmol/L (21-32) Anion Gap 8 (6-14) Blood Urea Nitrogen 29 mg/dL (7-20) Creatinine 1.0 mg/dL (0.6-1.0) Estimated GFR (Cockcroft-Gault) 56.6 Glucose Level 395 mg/dL (70-99) Calcium Level 9.1 mg/dL (8.5-10.1) Magnesium Level 1.7 mg/dL (1.8-2.4) Thyroid Stimulating Hormone (TSH) 0.470 uIU/mL (0.358-3.74) Medications Active Scripts Medications Dose Route/Sig Max Daily Dose Days Date Category Lasix (Furosemide) 20 Mg Tablet 20 Mg PO DAILY 11/24/18 Reported Metoprolol Succinate ( Xl ) (Metoprolol Succinate) 25 Mg Tab.er.24h 50 Mg PO DAILY 11/24/18 Reported Acetaminophen 650 Mg/20.3 Ml Solution 650 Mg FT PRN PRN 11/24/18 Reported Miralax (Polyethylene Glycol 3350) 17 Gm Powd.pack 1 Pkt PO DAILY 11/24/18 Reported Ferrous Sulfate 325 Mg Tablet 325 Mg PO BID 11/24/18 Reported Seroquel (Quetiapine Fumarate) 200 Mg Tablet 200 Mg PO HS 11/24/18 Reported Melatonin 3 Mg Tablet 3 Mg PO HS 11/24/18 Reported Proair Hfa Inhaler (Albuterol Sulfate) 8.5 Gm Hfa.aer.ad 1 Puff INH PRN Q6HRS PRN 10/13/18 Rx Proair Hfa Inhaler (Albuterol Sulfate) 8.5 Gm Hfa.aer.ad 2 Puff INH PRN Q6HRS PRN 03/03/18 Rx Colace 2-in-1 Tablet (Sennosides/Docusate Sodium) 1 Each Tablet 1 Each PO BID PRN 01/02/18 Rx Glucophage (Metformin Hcl) 500 Mg Tablet 1,000 Mg PO BIDWMEALS 05/20/15 Rx Simvastatin 10 Mg Tablet 10 Mg PO HS 10/13/14 Reported Symbicort 160-4.5 Mcg Inhaler (Budesonide/Formoterol Fumarate) 10.2 Gm Hfa.aer.ad 2 Puff IH BID 08/13/14 Reported Albuterol Sulfate Hfa Inhaler (Albuterol Sulfate) 8.5 Gm Hfa.aer.ad 2 Puff INH Q4HRS 08/13/14 Reported Comments cxr possible mild CHF Impression . 1. Acute on chronic hypoxemic hypercarbic respiratory failure, multifactorial in etiology, including acute exacerbation of chronic obstructive pulmonary disease, acute bronchitis , acute diastolic congestive heart failure 2. Acute exacerbation of chronic obstructive pulmonary disease. 3. Acute bronchitis 4. Acute diastolic congestive heart failure. 5. Mental retardation. 6. Hypertension. 7. Diabetes mellitus. 8. New onset atrial fibrillation with rapid ventricular response, now in sinus rhythm. Plan . 1. Titrate FiO2 to keep O2 saturation 90%. 2. Change BiPAP setting to 22/6, rate of 22, FiO2 35%. We will do ABG in 3 hours. Continue BiPAP. 3. Continue steroids. 4. Continue antibiotic. 5. Lasix prn 6. Cardiology rec 8. Leave anticoagulation to Cardiology regarding AFib with rapid ventricular response. 9. Elevate head of bed. 10. Bronchodilator. 11. I have discussed with her legal guardian Lynne. explained her condition. I recommended to make her DNR/DNI. but continue with BIPAP for now. She agrees d/w CLEM MCCULLOUGH MD Nov 26, 2018 12:56
--- NOTE | 2018-11-26 13:28 | NUR ---
SS following for discharge planning. SS received notification that pt was from [facility], ; fax [phone]. SS contacted [facility] and verified that pt was a LTC resident from there facility and was able to return when medically stable for discharge. Pt is currently on the BIPAP at this time. SS will continue to follow for discharge planning.
[2018-11-26] MEDS: cefTRIAXone IV Push 1 GM VIAL. IVP SCH (13:39)
[2018-11-26] MEDS ORDERED: MAGNESIUM SULFATE 1GM 100 ML IV ONE (15:15)
[2018-11-26 15:28] LABS: BASE EXCESS ABG 11 mmol/L (-3-3); HCO3 ABG 37 mmol/L (21-28); PCO2 ABG 56 mmHg (35-46)
[2018-11-26 15:32] LABS: PO2 ABG < 42 mmHg (65-108); SAT O2 ABG 46 % (92-99)
[2018-11-26 16:55] LABS: BASE EXCESS ABG 10 mmol/L (-3-3); HCO3 ABG 35 mmol/L (21-28); PCO2 ABG 52 mmHg (35-46); PO2 ABG 120 mmHg (65-108); SAT O2 ABG 99 % (92-99)
[2018-11-26 16:57] LABS: FIO2 ABG 60
--- NOTE | 2018-11-26 17:01 | PDOC2 ---
PALLIATIVE CARE Palliative Care Note Palliative Care Consult requested by Dr. Crowell to address goals of care Medical Assessment per medical record; (1) Altered mental status (2) Atrial fibrillation with RVR (3) COPD (chronic obstructive pulmonary disease) (4) COPD exacerbation (5) hypercapnia (6) GERD (gastroesophageal reflux disease) (7) HLD (hyperlipidemia) (8) HTN (hypertension) (9) Hypercapnia (10) Hypercapnic respiratory failure (11) Uncontrolled diabetes mellitus (12) UTI (urinary tract infection) Patient on BiPap. Restless at times. Spoke with Martha/Guardian. Plan family meeting tomorrow at 1430 Code Status; DNR/DNI. ARIANNA AMEZQUITA Nov 26, 2018 17:00
[2018-11-26] MEDS ORDERED: HALOPERIDOL LACTATE 5 MG/ML VIAL. IVP ONE (19:30)
[2018-11-26] MEDS: LURASIDONE 40 MG TABLET. PO SCH (19:58)
[2018-11-26] MEDS: SIMVASTATIN 10 MG TABLET PO SCH (19:59)
[2018-11-26] MEDS: INSULIN GLARGINE SYRINGE. SQ SCH (21:22)
[2018-11-27] VITALS (24 sets, daily range): BP systolic 99–161; BP diastolic 48–83
[2018-11-27] MEDS: methylPREDNISolone SOD SUCC PF 40 MG/ML VIAL. IV SCH ×3 (04:48→21:25)
[2018-11-27] MEDS: dilTIAZem INJ 125 MG in IV DEXTROSE 5% 100ML 100 ML IV PRN ×3 (04:49→22:43)
[2018-11-27] MEDS: IPRATRPIUM/ALBUTEROL 0.5/2.5MG 3 ML NEBU. NEB SCH ×4 (07:26→19:56)
[2018-11-27] MEDS: metFORMIN 500 MG TABLET PO SCH ×2 (08:00→15:50)
[2018-11-27] MEDS ORDERED: ASPIRIN ENTERIC COATED 81 MG TABLET.DR. PO SCH (08:00)
[2018-11-27] MEDS: FERROUS SULFATE 325 MG TABLET. PO SCH ×2 (08:00→15:50)
[2018-11-27] MEDS: POLYETHYLENE GLYCOL 3350 17 GM PACKET. PO SCH (08:05)
[2018-11-27] MEDS: GABAPENTIN 300 MG CAPSULE. PO SCH ×2 (08:05→21:00)
[2018-11-27] MEDS: FUROSEMIDE 20 MG TABLET PO SCH (08:05)
[2018-11-27] MEDS: LACTOBACILLUS RHAMNOSUS GG 1 CAPSULE. PO SCH ×2 (08:05→21:00)
[2018-11-27] MEDS: METOPROLOL SUCC 24HR ER 25 MG TAB.ER.24H. PO SCH (08:05)
[2018-11-27] MEDS: INSULIN LISPRO 300 UNITS/3 ML VIAL. SQ SCH ×6 (09:35→17:02)
--- NOTE | 2018-11-27 09:54 | PDOC ---
[employer] PROGRESS NOTE Chief Complaint Chief Complaint Altered mental status, likely med related COPD Exacerbation Severe hypercapnic resp failure, slow to improve Uncontrolled DM Depression GERD COPD Tobacco Abuse HX Obesity BMI 44 Mental retardation History of Present Illness History of Present Illness 11/27/18 Pt seen and examined at bedside resting with NAD On BiPap upon entry DENISSE RN VTE Prophylaxis Ordered VTE Prophylaxis Devices: Yes VTE Pharmacological Prophylaxi: Yes Assessment/Plan Vitals/I&O Vitals/I&O: Vital Signs Date Time Temp Pulse Resp B/P (MAP) Pulse Ox O2 Delivery O2 Flow Rate FiO2 11/27/18 09:00 117 26 124/60 (81) 91 BiPAP/CPAP 11/27/18 02:08 98.0 98.0 11/26/18 20:00 15.0 I & O 11/26/18 11/26/18 11/27/18 15:00 23:00 07:00 Intake Total 335 ml 200 ml Output Total 200 ml Balance 335 ml -200 ml 200 ml Physical Exam Physical Exam: Eyes: PERRLA, EOMI, conjunctiva normal, no discharge. [] Neck: Normal range of motion, no tenderness, supple, no stridor. [] Cardiovascular: Sinus tachycardia, regular rhythm, no murmur [] Lungs & Thorax: Bilateral breath sounds equal but wheezing. ] Abdomen: Bowel sounds normal, soft, no tenderness, no masses, no pulsatile masses. [] Skin: Warm, dry, no erythema, no rash. [] Back: No tenderness, no CVA tenderness. [] Extremities: No tenderness, no cyanosis, no clubbing, General: Alert, Oriented X3, Cooperative, No acute distress, mild distress Heart: Regular rate, Normal S1 Lungs: Clear, Wheezing, Other (decrease) Abdomen: Normal bowel sounds, Soft, No tenderness Extremities: No clubbing, No cyanosis, No tenderness/swelling Skin: No rashes, No significant lesion Labs Labs: Laboratory Tests Test 11/26/18 12:52 11/26/18 15:25 11/26/18 16:09 11/26/18 16:45 Glucose (Fingerstick) 360 mg/dL (70-99) 325 mg/dL (70-99) O2 Saturation 46 % (92-99) 99 % (92-99) Arterial Blood pH 7.43 (7.35-7.45) 7.45 (7.35-7.45) Arterial Blood pCO2 at Patient Temp 56 mmHg (35-46) 52 mmHg (35-46) Arterial Blood pO2 at Patient Temp < 42 mmHg (65-108) 120 mmHg (65-108) Arterial Blood HCO3 37 mmol/L (21-28) 35 mmol/L (21-28) Arterial Blood Base Excess 11 mmol/L (-3-3) 10 mmol/L (-3-3) FiO2 60 Test 11/26/18 19:53 11/27/18 09:03 Glucose (Fingerstick) 247 mg/dL (70-99) 370 mg/dL (70-99) Review of Systems Review of Systems: Denies MARTINEZ Denies vision change Assessment and Plan Assessmemt and Plan Problems Medical Problems: (1) Altered mental status Status: Acute (2) Atrial fibrillation with RVR Status: Acute (3) COPD (chronic obstructive pulmonary disease) Status: Chronic (4) COPD exacerbation Status: Acute (5) hypercapnia Status: Acute (6) GERD (gastroesophageal reflux disease) Status: Chronic (7) HLD (hyperlipidemia) Status: Chronic (8) HTN (hypertension) Status: Chronic (9) Hypercapnia Status: Acute (10) Hypercapnic respiratory failure Status: Acute (11) Uncontrolled diabetes mellitus Status: Chronic (12) UTI (urinary tract infection) Status: Acute Assessment Altered mental status, likely med related COPD Exacerbation Severe hypercapnic resp failure, slow to improve Uncontrolled DM Depression GERD COPD Tobacco Abuse HX Obesity BMI 44 Mental retardation Plan Cont BiPaP Hold antipsychotic meds for now Sliding scale insulin Cardiac monitoring Serial enzymes Procalamine 50/hr Duonebs IV steroids IV ABX O2 PRN DVT prophylaxis PT/OT Home meds Awaiting palliative care input Comment Review of Relevant I have reviewed the following items ana (where applicable) has been applied. Medications: Current Medications Medications (Trade) Dose Ordered Sig/[place] Route PRN Reason Start Time Stop Time Status Last Admin Dose Admin Insulin Glargine (Lantus Syringe) 25 unit QHS SQ 11/26/18 21:00 11/26/18 21:22 Magnesium Sulfate/ Dextrose 100 ml @ 100 mls/hr 1X ONCE IV 11/26/18 15:15 11/26/18 16:14 DC 11/26/18 16:04 Lorazepam (Ativan Inj) 2 mg PRN Q4HRS PRN IV ANXIETY / AGITATION 11/26/18 19:30 11/27/18 09:37 Haloperidol Lactate (Haldol Inj) 5 mg 1X ONCE IVP 11/26/18 19:30 11/26/18 19:38 DC 11/26/18 19:55 PARTHA EPPS III DO Nov 27, 2018 09:54
[2018-11-27] MEDS ORDERED: ASPIRIN RECTAL 300 MG SUPP. PR SCH (10:30)
--- NOTE | 2018-11-27 12:01 | PDOC ---
PULMONARY PROGRESS NOTES Subjective remains on BIPAP arousable ABG improved Vitals Vital Signs Date Time Temp Pulse Resp B/P (MAP) Pulse Ox O2 Delivery O2 Flow Rate FiO2 11/27/18 11:34 Venturi Mask 15.0 11/27/18 11:29 94 11/27/18 11:00 124 26 127/83 (98) 11/27/18 02:08 98.0 98.0 Lungs: Other (decrease) Cardiovascular: S1 Abdomen: Soft Extremities: Other (1+edema) Labs Laboratory Tests Test 11/25/18 12:15 11/25/18 16:48 11/25/18 20:09 11/26/18 07:52 O2 Saturation 91 % (92-99) Arterial Blood pH 7.31 (7.35-7.45) Arterial Blood pCO2 at Patient Temp 63 mmHg (35-46) Arterial Blood pO2 at Patient Temp 67 mmHg (65-108) Arterial Blood HCO3 31 mmol/L (21-28) Arterial Blood Base Excess 3 mmol/L (-3-3) FiO2 40 Glucose (Fingerstick) 304 mg/dL (70-99) 263 mg/dL (70-99) 340 mg/dL (70-99) Test 11/26/18 08:20 11/26/18 08:40 11/26/18 12:52 11/26/18 15:25 O2 Saturation 92 % (92-99) 46 % (92-99) Arterial Blood pH 7.33 (7.35-7.45) 7.43 (7.35-7.45) Arterial Blood pCO2 at Patient Temp 75 mmHg (35-46) 56 mmHg (35-46) Arterial Blood pO2 at Patient Temp 65 mmHg (65-108) < 42 mmHg (65-108) Arterial Blood HCO3 39 mmol/L (21-28) 37 mmol/L (21-28) Arterial Blood Base Excess 11 mmol/L (-3-3) 11 mmol/L (-3-3) FiO2 40% White Blood Count 8.2 x10^3/uL (4.0-11.0) Red Blood Count 4.62 x10^6/uL (3.50-5.40) Hemoglobin 11.2 g/dL (12.0-15.5) Hematocrit 36.6 % (36.0-47.0) Mean Corpuscular Volume 79 fL (79-100) Mean Corpuscular Hemoglobin 24 pg (25-35) Mean Corpuscular Hemoglobin Concent 31 g/dL (31-37) Red Cell Distribution Width 16.4 % (11.5-14.5) Platelet Count 417 x10^3/uL (140-400) Neutrophils (%) (Auto) 91 % (31-73) Lymphocytes (%) (Auto) 3 % (24-48) Monocytes (%) (Auto) 6 % (0-9) Eosinophils (%) (Auto) 0 % (0-3) Basophils (%) (Auto) 0 % (0-3) Neutrophils # (Auto) 7.5 x10^3/uL (1.8-7.7) Lymphocytes # (Auto) 0.2 x10^3/uL (1.0-4.8) Monocytes # (Auto) 0.5 x10^3/uL (0.0-1.1) Eosinophils # (Auto) 0.0 x10^3/uL (0.0-0.7) Basophils # (Auto) 0.0 x10^3/uL (0.0-0.2) Segmented Neutrophils % 90 % (35-66) Lymphocytes % 2 % (24-48) Monocytes % 8 % (0-10) Platelet Estimate Increased (ADEQUATE) Polychromasia Occasional Hypochromasia Slight Basophilic Stippling Present Anisocytosis Present Ovalocytes Occ Sodium Level 142 mmol/L (136-145) Potassium Level 4.6 mmol/L (3.5-5.1) Chloride Level 97 mmol/L (98-107) Carbon Dioxide Level 37 mmol/L (21-32) Anion Gap 8 (6-14) Blood Urea Nitrogen 29 mg/dL (7-20) Creatinine 1.0 mg/dL (0.6-1.0) Estimated GFR (Cockcroft-Gault) 56.6 Glucose Level 395 mg/dL (70-99) Calcium Level 9.1 mg/dL (8.5-10.1) Magnesium Level 1.7 mg/dL (1.8-2.4) Thyroid Stimulating Hormone (TSH) 0.470 uIU/mL (0.358-3.74) Glucose (Fingerstick) 360 mg/dL (70-99) Test 11/26/18 16:09 11/26/18 16:45 11/26/18 19:53 11/27/18 09:03 Glucose (Fingerstick) 325 mg/dL (70-99) 247 mg/dL (70-99) 370 mg/dL (70-99) O2 Saturation 99 % (92-99) Arterial Blood pH 7.45 (7.35-7.45) Arterial Blood pCO2 at Patient Temp 52 mmHg (35-46) Arterial Blood pO2 at Patient Temp 120 mmHg (65-108) Arterial Blood HCO3 35 mmol/L (21-28) Arterial Blood Base Excess 10 mmol/L (-3-3) FiO2 60 Laboratory Tests Test 11/26/18 12:52 11/26/18 15:25 11/26/18 16:09 11/26/18 16:45 Glucose (Fingerstick) 360 mg/dL (70-99) 325 mg/dL (70-99) O2 Saturation 46 % (92-99) 99 % (92-99) Arterial Blood pH 7.43 (7.35-7.45) 7.45 (7.35-7.45) Arterial Blood pCO2 at Patient Temp 56 mmHg (35-46) 52 mmHg (35-46) Arterial Blood pO2 at Patient Temp < 42 mmHg (65-108) 120 mmHg (65-108) Arterial Blood HCO3 37 mmol/L (21-28) 35 mmol/L (21-28) Arterial Blood Base Excess 11 mmol/L (-3-3) 10 mmol/L (-3-3) FiO2 60 Test 11/26/18 19:53 11/27/18 09:03 Glucose (Fingerstick) 247 mg/dL (70-99) 370 mg/dL (70-99) Medications Active Scripts Medications Dose Route/Sig Max Daily Dose Days Date Category Lasix (Furosemide) 20 Mg Tablet 20 Mg PO DAILY 11/24/18 Reported Metoprolol Succinate ( Xl ) (Metoprolol Succinate) 25 Mg Tab.er.24h 50 Mg PO DAILY 11/24/18 Reported Acetaminophen 650 Mg/20.3 Ml Solution 650 Mg FT PRN PRN 11/24/18 Reported Miralax (Polyethylene Glycol 3350) 17 Gm Powd.pack 1 Pkt PO DAILY 11/24/18 Reported Ferrous Sulfate 325 Mg Tablet 325 Mg PO BID 11/24/18 Reported Seroquel (Quetiapine Fumarate) 200 Mg Tablet 200 Mg PO HS 11/24/18 Reported Melatonin 3 Mg Tablet 3 Mg PO HS 11/24/18 Reported Proair Hfa Inhaler (Albuterol Sulfate) 8.5 Gm Hfa.aer.ad 1 Puff INH PRN Q6HRS PRN 10/13/18 Rx Proair Hfa Inhaler (Albuterol Sulfate) 8.5 Gm Hfa.aer.ad 2 Puff INH PRN Q6HRS PRN 03/03/18 Rx Colace 2-in-1 Tablet (Sennosides/Docusate Sodium) 1 Each Tablet 1 Each PO BID PRN 01/02/18 Rx Glucophage (Metformin Hcl) 500 Mg Tablet 1,000 Mg PO BIDWMEALS 05/20/15 Rx Simvastatin 10 Mg Tablet 10 Mg PO HS 10/13/14 Reported Symbicort 160-4.5 Mcg Inhaler (Budesonide/Formoterol Fumarate) 10.2 Gm Hfa.aer.ad 2 Puff IH BID 08/13/14 Reported Albuterol Sulfate Hfa Inhaler (Albuterol Sulfate) 8.5 Gm Hfa.aer.ad 2 Puff INH Q4HRS 08/13/14 Reported Comments cxr possible mild CHF Impression . 1. Acute on chronic hypoxemic hypercarbic respiratory failure, multifactorial in etiology, including acute exacerbation of chronic obstructive pulmonary disease, acute bronchitis , acute diastolic congestive heart failure 2. Acute exacerbation of chronic obstructive pulmonary disease. 3. Acute bronchitis 4. Acute diastolic congestive heart failure. 5. Mental retardation. 6. Hypertension. 7. Diabetes mellitus. 8. New onset atrial fibrillation with rapid ventricular response, now in sinus rhythm. Plan . 1. clinically better 2. ABG improved. try off BiPAP. use VM 3. Continue steroids. 4. Continue antibiotic. 5. Lasix prn 6. Cardiology rec 8. Leave anticoagulation to Cardiology regarding AFib with rapid ventricular response. 9. Elevate head of bed. 10. Bronchodilator. 11. DNR/DNI. d/w CLEM MCCULLOUGH MD Nov 27, 2018 12:01
[2018-11-27] MEDS: cefTRIAXone IV Push 1 GM VIAL. IVP SCH (12:53)
[2018-11-27] MEDS: AMINO AC 3%/ELECTROLYTE/GLYCER 1,000 ML IV SCH (12:53)
[2018-11-27] MEDS ORDERED: DIGOXIN IV 500 MCG/2 ML AMPUL. IV ONE (13:00)
--- NOTE | 2018-11-27 13:55 | PDOC ---
CARDIO Progress Notes Date and Time Date of Service 11/27/2018 Time of Evaluation 1340 Subjective Subjective: Other (Sleeping) Vitals Vitals Vital Signs Date Time Temp Pulse Resp B/P (MAP) Pulse Ox O2 Delivery O2 Flow Rate FiO2 11/27/18 13:22 133 11/27/18 13:00 26 154/72 (99) 88 NonRebreather Mask 15.0 11/27/18 02:08 98.0 98.0 Weight Weight [ ] Input and Output Intake and Output Intake and Output 11/27/18 07:00 Intake Total 535 ml Output Total 200 ml Balance 335 ml Intake Oral 210 ml IV Total 125 ml Other 200 ml Output Urine Total 200 ml # Voids 10 # Bowel Movements 1 Laboratory Labs Laboratory Tests Test 11/26/18 15:25 11/26/18 16:09 11/26/18 16:45 11/26/18 19:53 O2 Saturation 46 % (92-99) 99 % (92-99) Arterial Blood pH 7.43 (7.35-7.45) 7.45 (7.35-7.45) Arterial Blood pCO2 at Patient Temp 56 mmHg (35-46) 52 mmHg (35-46) Arterial Blood pO2 at Patient Temp < 42 mmHg (65-108) 120 mmHg (65-108) Arterial Blood HCO3 37 mmol/L (21-28) 35 mmol/L (21-28) Arterial Blood Base Excess 11 mmol/L (-3-3) 10 mmol/L (-3-3) Glucose (Fingerstick) 325 mg/dL (70-99) 247 mg/dL (70-99) FiO2 60 Test 11/27/18 09:03 11/27/18 12:52 Glucose (Fingerstick) 370 mg/dL (70-99) 371 mg/dL (70-99) Microbiology Micro Microbiology 11/24/18 Urine Culture - Final, Complete 11/24/18 Urine Culture Result 1 (MELO) - Final, Complete Physical Exam HEENT: Neck Supple W Full Motion Chest: Symmetric LUNGS: Other (diminished/bipap in place) Heart: irregularly irregular (AFIB RVR) Abdomen: Other (obese) Extremities: Other (1+ bilateral LE pitting edema) Neurology: other (drowsy with recent ativan; on 1:1 supervision; hand mittens in place) Assessment Assessment 1. Acute hypercapnic respiratory failure secondary to AECOPD Continue current treatment per pulmonary team. 2. Atrial fibrillation with RVR: Reverted back to AFIB RVR 3. Mild acute diastolic CHF: precipitated by COPD and RVR. EF nml 4. Metabolic encephalopathy with underlying mental retardation 5. HTN: controlled 6. DM2/HLP Recommendations 1. Currently on 1:1 supervision, Off bipap and on venti mask 2. Pt remains NPO, continue cardizem drip for now while NPO. ASA. Dig IV x1 3. TSH, Mg 4. will need MCOT to ascertain AFIB burden 5. supportive care 6. If afib remains then will add PRN metoprolol IV and then consider for lovenox ARIANNA MEJIA VAULT WORKER Nov 27, 2018 13:55
[2018-11-27] MEDS ORDERED: IV DEXTROSE 5% 250 ML BAG. IV PRN (14:00)
[2018-11-27] MEDS ORDERED: DEXTROSE 50% 25 GM / 50ML DISP.SYRIN. IV PRN (14:00)
[2018-11-27] MEDS: METOPROLOL TARTRATE 5 MG/5 ML VIAL. IVP PRN (16:32)
[2018-11-27] MEDS: ACETAMINOPHEN 325 MG SUPP.RECT. PR PRN (16:50)
--- NOTE | 2018-11-27 16:52 | PDOC2 ---
PALLIATIVE CARE Palliative Care Note Palliative Care Consult requested by Dr. Crowell to address goals of care. Patient restless; Venti-mask 50%; confused. Unable to make her own healthcare decisions. Met with sisters Martha (GUARDIAN) and Mishel. Brother Luis unable to attend. Medical Assessment per medical record. 1. Acute on chronic hypoxemic hypercarbic respiratory failure, multifactorial in etiology, including acute exacerbation of chronic obstructive pulmonary disease, acute bronchitis , acute diastolic congestive heart failure 2. Acute exacerbation of chronic obstructive pulmonary disease. 3. Acute bronchitis 4. Acute diastolic congestive heart failure. 5. Mental retardation. 6. Hypertension. 7. Diabetes mellitus. 8. New onset atrial fibrillation with rapid ventricular response, now in sinus rhythm. Reviewed current medical condition as above. Sisters shared that she recently was in [facility] treated for UTI. Patient lives at [facility] (2 weeks) Prior to this she was living with a man in an apartment. Family shared that patient has the mental of a 10 year old. Long history of mental health issues. Patient has had a good appetite until 2 weeks ago. Declined in mobilization --walks with walker, feeds herself, Discussed goals of care. Martha states that she had discussed Code Status with Dr. Beck. Reviewed and confirmed Family would not want feeding tube. Now off BiPap. Venti-mask. They would like to continue current treatment plan. If patient declines will have more discussion. Discussed Hospice services if p atient does not improve. Plan: DNR/DNI Continue current treatment plan. If no improvement will have more discussion about goals. Family Contact: Martha (guardian) [phone] Mishel; [phone] ARIANNA AMEZQUITA Nov 27, 2018 16:52
[2018-11-27] MEDS ORDERED: INSULIN LISPRO 300 UNITS/3 ML VIAL. SQ SCH (17:00)
[2018-11-27] MEDS: SIMVASTATIN 10 MG TABLET PO SCH (21:00)
[2018-11-27] MEDS: LURASIDONE 40 MG TABLET. PO SCH (21:00)
[2018-11-27] MEDS: INSULIN GLARGINE SYRINGE. SQ SCH (21:30)
[2018-11-28] VITALS (24 sets, daily range): BP systolic 113–173; BP diastolic 49–85
[2018-11-28] MEDS: METOPROLOL TARTRATE 5 MG/5 ML VIAL. IVP PRN (02:27)
[2018-11-28] MEDS: methylPREDNISolone SOD SUCC PF 40 MG/ML VIAL. IV SCH ×3 (05:10→21:52)
[2018-11-28 07:32] LABS: CALCIUM 9.1 mg/dL (8.5-10.1); CREATININE 1.1 mg/dL (0.6-1.0); GFR 50.7
[2018-11-28 07:39] LABS: BASO # 0.1 x10^3/uL (0.0-0.2); BASO % 1 % (0-3); EOS % 0 % (0-3); HEMATOCRIT 39.3 % (36.0-47.0); HEMOGLOBIN 11.4 g/dL (12.0-15.5); LYMPH # 0.2 x10^3/uL (1.0-4.8); LYMPH % 2 % (24-48); MEAN CORPUSCULAR HEMOGLOBIN 24 pg (25-35); MEAN CORPUSCULAR HGB CONC 29 g/dL (31-37); MONO # 0.5 x10^3/uL (0.0-1.1); MONO % 4 % (0-9); NEUT # 11.5 x10^3/uL (1.8-7.7); NEUT % 94 % (31-73); PLATELET COUNT 451 x10^3/uL (140-400); POTASSIUM 5.8 mmol/L (3.5-5.1); RED BLOOD COUNT 4.76 x10^6/uL (3.50-5.40); WHITE BLOOD COUNT 12.3 x10^3/uL (4.0-11.0)
[2018-11-28] MEDS: metFORMIN 500 MG TABLET PO SCH ×2 (07:56→16:59)
[2018-11-28] MEDS: FERROUS SULFATE 325 MG TABLET. PO SCH ×2 (07:56→16:59)
[2018-11-28] MEDS: METOPROLOL SUCC 24HR ER 25 MG TAB.ER.24H. PO SCH (07:57)
[2018-11-28] MEDS: GABAPENTIN 300 MG CAPSULE. PO SCH ×2 (07:57→21:00)
[2018-11-28] MEDS: FUROSEMIDE 20 MG TABLET PO SCH (07:57)
[2018-11-28] MEDS: POLYETHYLENE GLYCOL 3350 17 GM PACKET. PO SCH (07:57)
[2018-11-28] MEDS: LACTOBACILLUS RHAMNOSUS GG 1 CAPSULE. PO SCH ×2 (07:57→21:00)
[2018-11-28] MEDS: INSULIN LISPRO 300 UNITS/3 ML VIAL. SQ SCH ×7 (08:00→21:00)
[2018-11-28] MEDS: IPRATRPIUM/ALBUTEROL 0.5/2.5MG 3 ML NEBU. NEB SCH ×3 (08:19→19:33)
[2018-11-28] MEDS: dilTIAZem INJ 125 MG in IV DEXTROSE 5% 100ML 100 ML IV PRN ×2 (08:30→18:18)
[2018-11-28] MEDS: AMINO AC 3%/ELECTROLYTE/GLYCER 1,000 ML IV SCH (08:31)
[2018-11-28 09:03] LABS: MEAN CORPUSCULAR VOLUME 83 fL (79-100)
--- NOTE | 2018-11-28 11:38 | NUR ---
SS following up with discharge planning. Pt is a LTC resident from [facility], ; fax [phone]. Pt remains on the BIPAP. Palliative Care following and discussing the possibility of hospice with pt's family. SS will continue to follow for discharge planning.
--- NOTE | 2018-11-28 11:53 | PDOC ---
CARDIO Progress Notes Date and Time Date of Service 11/28/2018 Time of Evaluation 1130 Subjective Subjective: Other (Sleeping) Vitals Vitals Vital Signs Date Time Temp Pulse Resp B/P (MAP) Pulse Ox O2 Delivery O2 Flow Rate FiO2 11/28/18 11:00 97.5 97 24 143/67 (92) 93 BiPAP/CPAP 97.5 11/27/18 20:00 15.0 Weight Weight [ ] Input and Output Intake and Output Intake and Output 11/28/18 07:00 Intake Total 0 ml Output Total 1 ml Balance -1 ml Intake Oral 0 ml Stool Total 1 ml # Voids 4 Laboratory Labs Laboratory Tests Test 11/27/18 12:52 11/27/18 16:42 11/27/18 21:24 11/28/18 06:22 Glucose (Fingerstick) 371 mg/dL (70-99) 299 mg/dL (70-99) 255 mg/dL (70-99) White Blood Count 12.3 x10^3/uL (4.0-11.0) Red Blood Count 4.76 x10^6/uL (3.50-5.40) Hemoglobin 11.4 g/dL (12.0-15.5) Hematocrit 39.3 % (36.0-47.0) Mean Corpuscular Volume 83 fL (79-100) Mean Corpuscular Hemoglobin 24 pg (25-35) Mean Corpuscular Hemoglobin Concent 29 g/dL (31-37) Red Cell Distribution Width 17.0 % (11.5-14.5) Platelet Count 451 x10^3/uL (140-400) Neutrophils (%) (Auto) 94 % (31-73) Lymphocytes (%) (Auto) 2 % (24-48) Monocytes (%) (Auto) 4 % (0-9) Eosinophils (%) (Auto) 0 % (0-3) Basophils (%) (Auto) 1 % (0-3) Neutrophils # (Auto) 11.5 x10^3/uL (1.8-7.7) Lymphocytes # (Auto) 0.2 x10^3/uL (1.0-4.8) Monocytes # (Auto) 0.5 x10^3/uL (0.0-1.1) Eosinophils # (Auto) 0.0 x10^3/uL (0.0-0.7) Basophils # (Auto) 0.1 x10^3/uL (0.0-0.2) Sodium Level 148 mmol/L (136-145) Potassium Level 5.8 mmol/L (3.5-5.1) Chloride Level 102 mmol/L (98-107) Carbon Dioxide Level 41 mmol/L (21-32) Anion Gap 5 (6-14) Blood Urea Nitrogen 40 mg/dL (7-20) Creatinine 1.1 mg/dL (0.6-1.0) Estimated GFR (Cockcroft-Gault) 50.7 Glucose Level 442 mg/dL (70-99) Calcium Level 9.1 mg/dL (8.5-10.1) Test 11/28/18 07:27 11/28/18 11:15 Glucose (Fingerstick) 401 mg/dL (70-99) 420 mg/dL (70-99) Microbiology Micro Microbiology 11/24/18 Urine Culture - Final, Complete 11/24/18 Urine Culture Result 1 (MELO) - Final, Complete Physical Exam HEENT: Neck Supple W Full Motion Chest: Symmetric LUNGS: Other (diminished/bipap in place) Heart: RRR (SR) Abdomen: Soft N/T, Other (obese) Extremities: Other (1+ bilateral LE pitting edema) Neurology: other (drowsy with recent ativan; on 1:1 supervision; hand mittens in place) Assessment Assessment 1. Acute hypercapnic respiratory failure secondary to AECOPD Continue current treatment per pulmonary team. 2. Atrial fibrillation with RVR: converted to SR overnight 3. Mild acute diastolic CHF: precipitated by COPD and RVR. EF nml 4. Metabolic encephalopathy with underlying mental retardation 5. HTN: better. 6. DM2/HLP Recommendations 1. Currently on 1:1 supervision, Bipap in place. Possible hospice 2. Pt remains NPO, continue cardizem drip for now while NPO. PRN IV lopressor 3. Staff trying to get IV access again. BMP stat. If K is elevated then rectal kayexelate. Await Na count and calculate corrected Na for IVF need. Stop procalamine for now. 4. MCOT is a consideration unless dismiss with hospice. 5. Supportive care 6. Continue lovenox for stroke prevention. ARIANNA MEJIA VARNISHER PLASTICOATER Nov 28, 2018 11:53
[2018-11-28] MEDS ORDERED: SODIUM POLYSTYRENE SULFON/SORB 15 GM/60 ML ORAL.SUSP RC ONE (12:00)
[2018-11-28] MEDS: cefTRIAXone IV Push 1 GM VIAL. IVP SCH (12:12)
[2018-11-28 12:28] LABS: CALCIUM 9.1 mg/dL (8.5-10.1); GFR 56.6
--- NOTE | 2018-11-28 12:53 | PDOC ---
[facility] PROGRESS NOTE Chief Complaint Chief Complaint Altered mental status, likely med related COPD Exacerbation Severe hypercapnic resp failure, slow to improve Uncontrolled DM Depression GERD COPD Tobacco Abuse HX Obesity BMI 44 Mental retardation History of Present Illness History of Present Illness 11/28/18 Pt seen and examined at bedside 1:[address] On BiPaP upon entry- 45%FiO2 DENISSE TRONCOSO 11/27/18 Pt seen and examined at bedside resting with NAD On BiPap upon entry DENISSE RN VTE Prophylaxis Ordered VTE Prophylaxis Devices: Yes VTE Pharmacological Prophylaxi: Yes Assessment/Plan Vitals/I&O Vitals/I&O: Vital Signs Date Time Temp Pulse Resp B/P (MAP) Pulse Ox O2 Delivery O2 Flow Rate FiO2 11/28/18 12:00 97.9 92 24 130/49 (76) 92 BiPAP/CPAP 97.9 11/27/18 20:00 15.0 I & O 11/27/18 11/27/18 11/28/18 15:00 23:00 07:00 Intake Total 0 ml 0 ml Output Total 1 ml Balance -1 ml 0 ml 0 ml Physical Exam Physical Exam: Eyes: PERRLA, EOMI, conjunctiva normal, no discharge. [] Neck: Normal range of motion, no tenderness, supple, no stridor. [] Cardiovascular: Sinus tachycardia, regular rhythm, no murmur [] Lungs & Thorax: Bilateral breath sounds equal but wheezing. ] Abdomen: Bowel sounds normal, soft, no tenderness, no masses, no pulsatile masses. [] Skin: Warm, dry, no erythema, no rash. [] Back: No tenderness, no CVA tenderness. [] Extremities: No tenderness, no cyanosis, no clubbing, General: Alert, Oriented X3, Cooperative, No acute distress, mild distress Heart: Regular rate, Normal S1 Lungs: Other (decrease) Abdomen: Normal bowel sounds, Soft, No tenderness Extremities: No clubbing, No cyanosis, No tenderness/swelling Skin: No rashes, No significant lesion Labs Labs: Laboratory Tests Test 11/27/18 12:52 11/27/18 16:42 11/27/18 21:24 11/28/18 06:22 Glucose (Fingerstick) 371 mg/dL (70-99) 299 mg/dL (70-99) 255 mg/dL (70-99) White Blood Count 12.3 x10^3/uL (4.0-11.0) Red Blood Count 4.76 x10^6/uL (3.50-5.40) Hemoglobin 11.4 g/dL (12.0-15.5) Hematocrit 39.3 % (36.0-47.0) Mean Corpuscular Volume 83 fL (79-100) Mean Corpuscular Hemoglobin 24 pg (25-35) Mean Corpuscular Hemoglobin Concent 29 g/dL (31-37) Red Cell Distribution Width 17.0 % (11.5-14.5) Platelet Count 451 x10^3/uL (140-400) Neutrophils (%) (Auto) 94 % (31-73) Lymphocytes (%) (Auto) 2 % (24-48) Monocytes (%) (Auto) 4 % (0-9) Eosinophils (%) (Auto) 0 % (0-3) Basophils (%) (Auto) 1 % (0-3) Neutrophils # (Auto) 11.5 x10^3/uL (1.8-7.7) Lymphocytes # (Auto) 0.2 x10^3/uL (1.0-4.8) Monocytes # (Auto) 0.5 x10^3/uL (0.0-1.1) Eosinophils # (Auto) 0.0 x10^3/uL (0.0-0.7) Basophils # (Auto) 0.1 x10^3/uL (0.0-0.2) Sodium Level 148 mmol/L (136-145) Potassium Level 5.8 mmol/L (3.5-5.1) Chloride Level 102 mmol/L (98-107) Carbon Dioxide Level 41 mmol/L (21-32) Anion Gap 5 (6-14) Blood Urea Nitrogen 40 mg/dL (7-20) Creatinine 1.1 mg/dL (0.6-1.0) Estimated GFR (Cockcroft-Gault) 50.7 Glucose Level 442 mg/dL (70-99) Calcium Level 9.1 mg/dL (8.5-10.1) Test 11/28/18 07:27 11/28/18 11:15 11/28/18 12:06 Glucose (Fingerstick) 401 mg/dL (70-99) 420 mg/dL (70-99) Sodium Level 148 mmol/L (136-145) Potassium Level 5.0 mmol/L (3.5-5.1) Chloride Level 103 mmol/L (98-107) Carbon Dioxide Level 44 mmol/L (21-32) Anion Gap 1 (6-14) Blood Urea Nitrogen 41 mg/dL (7-20) Creatinine 1.0 mg/dL (0.6-1.0) Estimated GFR (Cockcroft-Gault) 56.6 Glucose Level 401 mg/dL (70-99) Calcium Level 9.1 mg/dL (8.5-10.1) Review of Systems Review of Systems: Denies MARTINEZ Denies vision change Assessment and Plan Assessmemt and Plan Problems Medical Problems: (1) Altered mental status Status: Acute (2) Atrial fibrillation with RVR Status: Acute (3) COPD (chronic obstructive pulmonary disease) Status: Chronic (4) COPD exacerbation Status: Acute (5) hypercapnia Status: Acute (6) GERD (gastroesophageal reflux disease) Status: Chronic (7) HLD (hyperlipidemia) Status: Chronic (8) HTN (hypertension) Status: Chronic (9) Hypercapnia Status: Acute (10) Hypercapnic respiratory failure Status: Acute (11) Uncontrolled diabetes mellitus Status: Chronic (12) UTI (urinary tract infection) Status: Acute Assessment Altered mental status, likely med related COPD Exacerbation Severe hypercapnic resp failure, slow to improve Uncontrolled DM Depression GERD COPD Tobacco Abuse HX Obesity BMI 44 Mental retardation Plan Cont BiPaP Continue 1:1 observation DW RN- increase sliding scale insulin due to second day of glucose above 400 Cardiac monitoring Serial enzymes PPN Procalamine 50/hr Cardizem Duonebs IV steroids IV ABX O2 PRN DVT prophylaxis PT/OT Home meds Palliative care in progress Total time 32 minutes Comment Review of Relevant I have reviewed the following items ana (where applicable) has been applied. Medications: Current Medications Medications (Trade) Dose Ordered Sig/Austin Route PRN Reason Start Time Stop Time Status Last Admin Dose Admin Digoxin (Lanoxin) 500 mcg 1X ONCE IV 11/27/18 13:00 11/27/18 13:07 DC 11/27/18 13:22 Insulin Human Lispro (HumaLOG) 12 units TIDWMEALS SQ 11/27/18 17:00 11/28/18 12:19 Metoprolol Tartrate (Lopressor Vial) 5 mg PRN Q5MIN PRN IVP TACHYCARDIA 11/27/18 16:00 11/28/18 02:27 Enoxaparin Sodium (Lovenox 100mg Syringe) 100 mg Q12HR SQ 11/27/18 16:30 11/28/18 08:47 Insulin Human Lispro (HumaLOG) 0-9 UNITS TIDWMEALS SQ 11/27/18 17:00 11/28/18 12:19 Acetaminophen (Tylenol Supp) 325 mg PRN Q6HRS PRN OK MILD PAIN / TEMP 11/27/18 16:45 11/27/18 17:02 PARTHA EPPS III DO Nov 28, 2018 12:53
--- NOTE | 2018-11-28 13:31 | PDOC ---
PULMONARY PROGRESS NOTES Subjective remains on BIPAP arousable ABG improved Vitals Vital Signs Date Time Temp Pulse Resp B/P (MAP) Pulse Ox O2 Delivery O2 Flow Rate FiO2 11/28/18 13:03 98.0 101 24 137/58 (84) 93 BiPAP/CPAP 98.0 11/27/18 20:00 15.0 Lungs: Other (decrease) Cardiovascular: S1 Abdomen: Soft Extremities: Other (1+edema) Labs Laboratory Tests Test 11/26/18 15:25 11/26/18 16:09 11/26/18 16:45 11/26/18 19:53 O2 Saturation 46 % (92-99) 99 % (92-99) Arterial Blood pH 7.43 (7.35-7.45) 7.45 (7.35-7.45) Arterial Blood pCO2 at Patient Temp 56 mmHg (35-46) 52 mmHg (35-46) Arterial Blood pO2 at Patient Temp < 42 mmHg (65-108) 120 mmHg (65-108) Arterial Blood HCO3 37 mmol/L (21-28) 35 mmol/L (21-28) Arterial Blood Base Excess 11 mmol/L (-3-3) 10 mmol/L (-3-3) Glucose (Fingerstick) 325 mg/dL (70-99) 247 mg/dL (70-99) FiO2 60 Test 11/27/18 09:03 11/27/18 12:52 11/27/18 16:42 11/27/18 21:24 Glucose (Fingerstick) 370 mg/dL (70-99) 371 mg/dL (70-99) 299 mg/dL (70-99) 255 mg/dL (70-99) Test 11/28/18 06:22 11/28/18 07:27 11/28/18 11:15 11/28/18 12:06 White Blood Count 12.3 x10^3/uL (4.0-11.0) Red Blood Count 4.76 x10^6/uL (3.50-5.40) Hemoglobin 11.4 g/dL (12.0-15.5) Hematocrit 39.3 % (36.0-47.0) Mean Corpuscular Volume 83 fL (79-100) Mean Corpuscular Hemoglobin 24 pg (25-35) Mean Corpuscular Hemoglobin Concent 29 g/dL (31-37) Red Cell Distribution Width 17.0 % (11.5-14.5) Platelet Count 451 x10^3/uL (140-400) Neutrophils (%) (Auto) 94 % (31-73) Lymphocytes (%) (Auto) 2 % (24-48) Monocytes (%) (Auto) 4 % (0-9) Eosinophils (%) (Auto) 0 % (0-3) Basophils (%) (Auto) 1 % (0-3) Neutrophils # (Auto) 11.5 x10^3/uL (1.8-7.7) Lymphocytes # (Auto) 0.2 x10^3/uL (1.0-4.8) Monocytes # (Auto) 0.5 x10^3/uL (0.0-1.1) Eosinophils # (Auto) 0.0 x10^3/uL (0.0-0.7) Basophils # (Auto) 0.1 x10^3/uL (0.0-0.2) Sodium Level 148 mmol/L (136-145) 148 mmol/L (136-145) Potassium Level 5.8 mmol/L (3.5-5.1) 5.0 mmol/L (3.5-5.1) Chloride Level 102 mmol/L (98-107) 103 mmol/L (98-107) Carbon Dioxide Level 41 mmol/L (21-32) 44 mmol/L (21-32) Anion Gap 5 (6-14) 1 (6-14) Blood Urea Nitrogen 40 mg/dL (7-20) 41 mg/dL (7-20) Creatinine 1.1 mg/dL (0.6-1.0) 1.0 mg/dL (0.6-1.0) Estimated GFR (Cockcroft-Gault) 50.7 56.6 Glucose Level 442 mg/dL (70-99) 401 mg/dL (70-99) Calcium Level 9.1 mg/dL (8.5-10.1) 9.1 mg/dL (8.5-10.1) Glucose (Fingerstick) 401 mg/dL (70-99) 420 mg/dL (70-99) Laboratory Tests Test 11/27/18 16:42 11/27/18 21:24 11/28/18 06:22 11/28/18 07:27 Glucose (Fingerstick) 299 mg/dL (70-99) 255 mg/dL (70-99) 401 mg/dL (70-99) White Blood Count 12.3 x10^3/uL (4.0-11.0) Red Blood Count 4.76 x10^6/uL (3.50-5.40) Hemoglobin 11.4 g/dL (12.0-15.5) Hematocrit 39.3 % (36.0-47.0) Mean Corpuscular Volume 83 fL (79-100) Mean Corpuscular Hemoglobin 24 pg (25-35) Mean Corpuscular Hemoglobin Concent 29 g/dL (31-37) Red Cell Distribution Width 17.0 % (11.5-14.5) Platelet Count 451 x10^3/uL (140-400) Neutrophils (%) (Auto) 94 % (31-73) Lymphocytes (%) (Auto) 2 % (24-48) Monocytes (%) (Auto) 4 % (0-9) Eosinophils (%) (Auto) 0 % (0-3) Basophils (%) (Auto) 1 % (0-3) Neutrophils # (Auto) 11.5 x10^3/uL (1.8-7.7) Lymphocytes # (Auto) 0.2 x10^3/uL (1.0-4.8) Monocytes # (Auto) 0.5 x10^3/uL (0.0-1.1) Eosinophils # (Auto) 0.0 x10^3/uL (0.0-0.7) Basophils # (Auto) 0.1 x10^3/uL (0.0-0.2) Sodium Level 148 mmol/L (136-145) Potassium Level 5.8 mmol/L (3.5-5.1) Chloride Level 102 mmol/L (98-107) Carbon Dioxide Level 41 mmol/L (21-32) Anion Gap 5 (6-14) Blood Urea Nitrogen 40 mg/dL (7-20) Creatinine 1.1 mg/dL (0.6-1.0) Estimated GFR (Cockcroft-Gault) 50.7 Glucose Level 442 mg/dL (70-99) Calcium Level 9.1 mg/dL (8.5-10.1) Test 11/28/18 11:15 11/28/18 12:06 Glucose (Fingerstick) 420 mg/dL (70-99) Sodium Level 148 mmol/L (136-145) Potassium Level 5.0 mmol/L (3.5-5.1) Chloride Level 103 mmol/L (98-107) Carbon Dioxide Level 44 mmol/L (21-32) Anion Gap 1 (6-14) Blood Urea Nitrogen 41 mg/dL (7-20) Creatinine 1.0 mg/dL (0.6-1.0) Estimated GFR (Cockcroft-Gault) 56.6 Glucose Level 401 mg/dL (70-99) Calcium Level 9.1 mg/dL (8.5-10.1) Medications Active Scripts Medications Dose Route/Sig Max Daily Dose Days Date Category Lasix (Furosemide) 20 Mg Tablet 20 Mg PO DAILY 11/24/18 Reported Metoprolol Succinate ( Xl ) (Metoprolol Succinate) 25 Mg Tab.er.24h 50 Mg PO DAILY 11/24/18 Reported Acetaminophen 650 Mg/20.3 Ml Solution 650 Mg FT PRN PRN 11/24/18 Reported Miralax (Polyethylene Glycol 3350) 17 Gm Powd.pack 1 Pkt PO DAILY 11/24/18 Reported Ferrous Sulfate 325 Mg Tablet 325 Mg PO BID 11/24/18 Reported Seroquel (Quetiapine Fumarate) 200 Mg Tablet 200 Mg PO HS 11/24/18 Reported Melatonin 3 Mg Tablet 3 Mg PO HS 11/24/18 Reported Proair Hfa Inhaler (Albuterol Sulfate) 8.5 Gm Hfa.aer.ad 1 Puff INH PRN Q6HRS PRN 10/13/18 Rx Proair Hfa Inhaler (Albuterol Sulfate) 8.5 Gm Hfa.aer.ad 2 Puff INH PRN Q6HRS PRN 03/03/18 Rx Colace 2-in-1 Tablet (Sennosides/Docusate Sodium) 1 Each Tablet 1 Each PO BID PRN 01/02/18 Rx Glucophage (Metformin Hcl) 500 Mg Tablet 1,000 Mg PO BIDWMEALS 05/20/15 Rx Simvastatin 10 Mg Tablet 10 Mg PO HS 10/13/14 Reported Symbicort 160-4.5 Mcg Inhaler (Budesonide/Formoterol Fumarate) 10.2 Gm Hfa.aer.ad 2 Puff IH BID 08/13/14 Reported Albuterol Sulfate Hfa Inhaler (Albuterol Sulfate) 8.5 Gm Hfa.aer.ad 2 Puff INH Q4HRS 08/13/14 Reported Comments cxr possible mild CHF Impression . 1. Acute on chronic hypoxemic hypercarbic respiratory failure, multifactorial in etiology, including acute exacerbation of chronic obstructive pulmonary disease, acute bronchitis , acute diastolic congestive heart failure 2. Acute exacerbation of chronic obstructive pulmonary disease. 3. Acute bronchitis 4. Acute diastolic congestive heart failure. 5. Mental retardation. 6. Hypertension. 7. Diabetes mellitus. 8. New onset atrial fibrillation with rapid ventricular response, now in sinus rhythm. Plan . 1. Back on BIPAP 2. ABG improved. try off BiPAP. use VM, keep sats @90-92% 3. Continue steroids. 4. Continue antibiotic. 5. Lasix prn 6. Cardiology rec 8. Leave anticoagulation to Cardiology regarding AFib with rapid ventricular response. 9. Elevate head of bed. 10. Bronchodilator. 11. DNR/DNI. CLEM SCHAEFER MD Nov 28, 2018 13:31
--- NOTE | 2018-11-28 16:22 | RAD ---
Exam: Chest one view INDICATION: Dyspnea TECHNIQUE: Frontal view of the chest Comparisons: 11/24/2018 FINDINGS: The cardiomediastinal silhouette and pulmonary vessels are within normal limits. Hazy opacity at the left lung base. Remaining lungs are clear. IMPRESSION: Findings likely related to a small left pleural effusion with adjacent airspace disease. Electronically signed by: Kelly Cummings MD (11/28/2018 4:19 PM) [id number]
[2018-11-28] MEDS: IV 1/2 NORMAL SALINE 1,000 ML IV SCH (17:09)
[2018-11-28] MEDS: INSULIN GLARGINE SYRINGE. SQ SCH (21:00)
[2018-11-28] MEDS: SIMVASTATIN 10 MG TABLET PO SCH (21:00)
[2018-11-28] MEDS: LURASIDONE 40 MG TABLET. PO SCH (21:00)
[2018-11-29] VITALS (26 sets, daily range): BP systolic 137–183; BP diastolic 60–108
[2018-11-29] MEDS: METOPROLOL TARTRATE 5 MG/5 ML VIAL. IVP PRN ×3 (04:15→17:59)
[2018-11-29] MEDS: methylPREDNISolone SOD SUCC PF 40 MG/ML VIAL. IV SCH ×4 (05:29→22:47)
[2018-11-29] MEDS: IPRATRPIUM/ALBUTEROL 0.5/2.5MG 3 ML NEBU. NEB SCH ×4 (08:00→19:54)
[2018-11-29] MEDS: metFORMIN 500 MG TABLET PO SCH ×2 (08:00→17:00)
[2018-11-29] MEDS: FERROUS SULFATE 325 MG TABLET. PO SCH ×2 (08:00→17:00)
[2018-11-29 08:26] LABS: BASO % 0 % (0-3); EOS % 0 % (0-3); HEMATOCRIT 38.5 % (36.0-47.0); HEMOGLOBIN 11.5 g/dL (12.0-15.5); LYMPH # 0.3 x10^3/uL (1.0-4.8); LYMPH % 3 % (24-48); MEAN CORPUSCULAR HEMOGLOBIN 24 pg (25-35); MEAN CORPUSCULAR HGB CONC 30 g/dL (31-37); MEAN CORPUSCULAR VOLUME 81 fL (79-100); MONO # 0.5 x10^3/uL (0.0-1.1); MONO % 5 % (0-9); NEUT # 8.7 x10^3/uL (1.8-7.7); NEUT % 92 % (31-73); PLATELET COUNT 373 x10^3/uL (140-400); RED BLOOD COUNT 4.77 x10^6/uL (3.50-5.40); RED CELL DISTRIBUTION WIDTH 16.7 % (11.5-14.5); WHITE BLOOD COUNT 9.5 x10^3/uL (4.0-11.0)
[2018-11-29] MEDS ORDERED: DIGOXIN IV 500 MCG/2 ML AMPUL. IV ONE (08:30)
[2018-11-29 08:31] LABS: CALCIUM 9.1 mg/dL (8.5-10.1); CREATININE 0.9 mg/dL (0.6-1.0); GFR 63.9; POTASSIUM 4.6 mmol/L (3.5-5.1)
[2018-11-29 08:49] LABS: INFLUENZA A PATIENT NEGATIVE (NEGATIVE); INFLUENZA B PATIENT NEGATIVE (NEGATIVE)
[2018-11-29] MEDS: IV 1/2 NORMAL SALINE 1,000 ML IV SCH (08:49)
[2018-11-29] MEDS: INSULIN LISPRO 300 UNITS/3 ML VIAL. SQ SCH ×7 (08:54→21:00)
[2018-11-29] MEDS: LACTOBACILLUS RHAMNOSUS GG 1 CAPSULE. PO SCH ×2 (09:00→19:04)
[2018-11-29] MEDS: METOPROLOL SUCC 24HR ER 25 MG TAB.ER.24H. PO SCH (09:00)
[2018-11-29] MEDS: GABAPENTIN 300 MG CAPSULE. PO SCH ×2 (09:00→19:04)
[2018-11-29] MEDS ORDERED: cefTRIAXone IV Push 1 GM VIAL. IVP SCH (09:00)
[2018-11-29] MEDS: POLYETHYLENE GLYCOL 3350 17 GM PACKET. PO SCH (09:00)
[2018-11-29] MEDS: FUROSEMIDE 20 MG TABLET PO SCH (09:00)
--- NOTE | 2018-11-29 09:37 | PDOC ---
[employer] [facility] PROGRESS NOTE Chief Complaint Chief Complaint Altered mental status, likely med related COPD Exacerbation Severe hypercapnic resp failure, slow to improve Uncontrolled DM Depression GERD COPD Tobacco Abuse HX Obesity BMI 44 Mental retardation History of Present Illness History of Present Illness 11/29/18 Pt seen and examined at bedside Pt unresponsive upon sternal rub, but appears in NAD 1:[address] On BiPaP upon entry- 45%FiO2 DW RN 11/28/18 Pt seen and examined at bedside 1:[address] On BiPaP upon entry- 45%FiO2 DW RN 11/27/18 Pt seen and examined at bedside resting with NAD On BiPap upon entry DW RN VTE Prophylaxis Ordered VTE Prophylaxis Devices: Yes VTE Pharmacological Prophylaxi: Yes Assessment/Plan Vitals/I&O Vitals/I&O: Vital Signs Date Time Temp Pulse Resp B/P (MAP) Pulse Ox O2 Delivery O2 Flow Rate FiO2 11/29/18 08:47 102.1 129 23 164/83 (110) 92 Venturi Mask 102.1 11/29/18 07:56 15.0 Physical Exam Physical Exam: Eyes: PERRLA, EOMI, conjunctiva normal, no discharge. [] Neck: Normal range of motion, no tenderness, supple, no stridor. [] Cardiovascular: Sinus tachycardia, regular rhythm, no murmur [] Lungs & Thorax: Bilateral breath sounds equal but wheezing. ] Abdomen: Bowel sounds normal, soft, no tenderness, no masses, no pulsatile masses. [] Skin: Warm, dry, no erythema, no rash. [] Back: No tenderness, no CVA tenderness. [] Extremities: No tenderness, no cyanosis, no clubbing, General: Alert, Oriented X3, Cooperative, No acute distress, mild distress Heart: Regular rate, Normal S1 Lungs: Other (decrease) Abdomen: Normal bowel sounds, Soft, No tenderness Extremities: No clubbing, No cyanosis, No tenderness/swelling Skin: No rashes, No significant lesion Labs Labs: Laboratory Tests Test 11/28/18 11:15 11/28/18 12:06 11/28/18 13:42 11/28/18 17:04 Glucose (Fingerstick) 420 mg/dL (70-99) 344 mg/dL (70-99) 282 mg/dL (70-99) Sodium Level 148 mmol/L (136-145) Potassium Level 5.0 mmol/L (3.5-5.1) Chloride Level 103 mmol/L (98-107) Carbon Dioxide Level 44 mmol/L (21-32) Anion Gap 1 (6-14) Blood Urea Nitrogen 41 mg/dL (7-20) Creatinine 1.0 mg/dL (0.6-1.0) Estimated GFR (Cockcroft-Gault) 56.6 Glucose Level 401 mg/dL (70-99) Calcium Level 9.1 mg/dL (8.5-10.1) Test 11/28/18 21:37 11/29/18 07:15 11/29/18 07:44 11/29/18 07:45 Glucose (Fingerstick) 214 mg/dL (70-99) 327 mg/dL (70-99) White Blood Count 9.5 x10^3/uL (4.0-11.0) Red Blood Count 4.77 x10^6/uL (3.50-5.40) Hemoglobin 11.5 g/dL (12.0-15.5) Hematocrit 38.5 % (36.0-47.0) Mean Corpuscular Volume 81 fL (79-100) Mean Corpuscular Hemoglobin 24 pg (25-35) Mean Corpuscular Hemoglobin Concent 30 g/dL (31-37) Red Cell Distribution Width 16.7 % (11.5-14.5) Platelet Count 373 x10^3/uL (140-400) Neutrophils (%) (Auto) 92 % (31-73) Lymphocytes (%) (Auto) 3 % (24-48) Monocytes (%) (Auto) 5 % (0-9) Eosinophils (%) (Auto) 0 % (0-3) Basophils (%) (Auto) 0 % (0-3) Neutrophils # (Auto) 8.7 x10^3/uL (1.8-7.7) Lymphocytes # (Auto) 0.3 x10^3/uL (1.0-4.8) Monocytes # (Auto) 0.5 x10^3/uL (0.0-1.1) Eosinophils # (Auto) 0.0 x10^3/uL (0.0-0.7) Basophils # (Auto) 0.0 x10^3/uL (0.0-0.2) Sodium Level 152 mmol/L (136-145) Potassium Level 4.6 mmol/L (3.5-5.1) Chloride Level 106 mmol/L (98-107) Carbon Dioxide Level 43 mmol/L (21-32) Anion Gap 3 (6-14) Blood Urea Nitrogen 29 mg/dL (7-20) Creatinine 0.9 mg/dL (0.6-1.0) Estimated GFR (Cockcroft-Gault) 63.9 Glucose Level 342 mg/dL (70-99) Calcium Level 9.1 mg/dL (8.5-10.1) Influenza Type A Antigen Negative (NEGATIVE) Influenza Type B Antigen Negative (NEGATIVE) Review of Systems Review of Systems: co SOB no co vision change Assessment and Plan Assessmemt and Plan Problems Medical Problems: (1) Acute bronchitis Status: Acute (2) Acute diastolic CHF (congestive heart failure) Status: Acute (3) Altered mental status Status: Acute (4) Atrial fibrillation with RVR Status: Acute (5) COPD (chronic obstructive pulmonary disease) Status: Chronic (6) COPD exacerbation Status: Acute (7) hypercapnia Status: Acute (8) GERD (gastroesophageal reflux disease) Status: Chronic (9) HLD (hyperlipidemia) Status: Chronic (10) HTN (hypertension) Status: Chronic (11) Hypercapnia Status: Acute (12) Hypercapnic respiratory failure Status: Acute (13) Uncontrolled diabetes mellitus Status: Chronic (14) UTI (urinary tract infection) Status: Acute Assessment Altered mental status, likely med related COPD Exacerbation Severe hypercapnic resp failure, slow to improve Uncontrolled DM Depression GERD COPD Tobacco Abuse HX Obesity BMI 44 Mental retardation Plan Duonebs IV steroids IV ABX O2 PRN Cont BiPaP Continue 1:1 observation Cardiac monitoring Serial enzymes PPN: Procalamine 50/hr Cardizem DVT prophylaxis PT/OT Home meds LTAC eval in progress Await palliative care input Comment Review of Relevant I have reviewed the following items ana (where applicable) has been applied. Medications: Current Medications Medications (Trade) Dose Ordered Sig/[place] Route PRN Reason Start Time Stop Time Status Last Admin Dose Admin Sodium Chloride 1,000 ml @ 60 mls/hr [id number] IV 11/28/18 14:00 11/29/18 08:55 Insulin Human Lispro (HumaLOG) 0-9 UNITS QIDACHS SQ 11/28/18 16:45 11/29/18 08:55 Digoxin (Lanoxin) 250 mcg 1X ONCE IV 11/29/18 08:30 11/29/18 08:31 DC 11/29/18 08:46 PARTHA EPPS III DO Nov 29, 2018 09:37
--- NOTE | 2018-11-29 10:47 | PDOC ---
PULMONARY PROGRESS NOTES Subjective remains on BIPAP sleepy ABG improved received ativan IV yesterday Vitals Vital Signs Date Time Temp Pulse Resp B/P (MAP) Pulse Ox O2 Delivery O2 Flow Rate FiO2 11/29/18 10:00 101.7 120 23 170/82 (111) 93 Venturi Mask 101.7 11/29/18 07:56 15.0 Lungs: Other (decrease) Cardiovascular: S1 Abdomen: Soft Extremities: Other (1+edema) Skin: Warm Labs Laboratory Tests Test 11/27/18 12:52 11/27/18 16:42 11/27/18 21:24 11/28/18 06:22 Glucose (Fingerstick) 371 mg/dL (70-99) 299 mg/dL (70-99) 255 mg/dL (70-99) White Blood Count 12.3 x10^3/uL (4.0-11.0) Red Blood Count 4.76 x10^6/uL (3.50-5.40) Hemoglobin 11.4 g/dL (12.0-15.5) Hematocrit 39.3 % (36.0-47.0) Mean Corpuscular Volume 83 fL (79-100) Mean Corpuscular Hemoglobin 24 pg (25-35) Mean Corpuscular Hemoglobin Concent 29 g/dL (31-37) Red Cell Distribution Width 17.0 % (11.5-14.5) Platelet Count 451 x10^3/uL (140-400) Neutrophils (%) (Auto) 94 % (31-73) Lymphocytes (%) (Auto) 2 % (24-48) Monocytes (%) (Auto) 4 % (0-9) Eosinophils (%) (Auto) 0 % (0-3) Basophils (%) (Auto) 1 % (0-3) Neutrophils # (Auto) 11.5 x10^3/uL (1.8-7.7) Lymphocytes # (Auto) 0.2 x10^3/uL (1.0-4.8) Monocytes # (Auto) 0.5 x10^3/uL (0.0-1.1) Eosinophils # (Auto) 0.0 x10^3/uL (0.0-0.7) Basophils # (Auto) 0.1 x10^3/uL (0.0-0.2) Sodium Level 148 mmol/L (136-145) Potassium Level 5.8 mmol/L (3.5-5.1) Chloride Level 102 mmol/L (98-107) Carbon Dioxide Level 41 mmol/L (21-32) Anion Gap 5 (6-14) Blood Urea Nitrogen 40 mg/dL (7-20) Creatinine 1.1 mg/dL (0.6-1.0) Estimated GFR (Cockcroft-Gault) 50.7 Glucose Level 442 mg/dL (70-99) Calcium Level 9.1 mg/dL (8.5-10.1) Test 11/28/18 07:27 11/28/18 11:15 11/28/18 12:06 11/28/18 13:42 Glucose (Fingerstick) 401 mg/dL (70-99) 420 mg/dL (70-99) 344 mg/dL (70-99) Sodium Level 148 mmol/L (136-145) Potassium Level 5.0 mmol/L (3.5-5.1) Chloride Level 103 mmol/L (98-107) Carbon Dioxide Level 44 mmol/L (21-32) Anion Gap 1 (6-14) Blood Urea Nitrogen 41 mg/dL (7-20) Creatinine 1.0 mg/dL (0.6-1.0) Estimated GFR (Cockcroft-Gault) 56.6 Glucose Level 401 mg/dL (70-99) Calcium Level 9.1 mg/dL (8.5-10.1) Test 11/28/18 17:04 11/28/18 21:37 11/29/18 07:15 11/29/18 07:44 Glucose (Fingerstick) 282 mg/dL (70-99) 214 mg/dL (70-99) White Blood Count 9.5 x10^3/uL (4.0-11.0) Red Blood Count 4.77 x10^6/uL (3.50-5.40) Hemoglobin 11.5 g/dL (12.0-15.5) Hematocrit 38.5 % (36.0-47.0) Mean Corpuscular Volume 81 fL (79-100) Mean Corpuscular Hemoglobin 24 pg (25-35) Mean Corpuscular Hemoglobin Concent 30 g/dL (31-37) Red Cell Distribution Width 16.7 % (11.5-14.5) Platelet Count 373 x10^3/uL (140-400) Neutrophils (%) (Auto) 92 % (31-73) Lymphocytes (%) (Auto) 3 % (24-48) Monocytes (%) (Auto) 5 % (0-9) Eosinophils (%) (Auto) 0 % (0-3) Basophils (%) (Auto) 0 % (0-3) Neutrophils # (Auto) 8.7 x10^3/uL (1.8-7.7) Lymphocytes # (Auto) 0.3 x10^3/uL (1.0-4.8) Monocytes # (Auto) 0.5 x10^3/uL (0.0-1.1) Eosinophils # (Auto) 0.0 x10^3/uL (0.0-0.7) Basophils # (Auto) 0.0 x10^3/uL (0.0-0.2) Sodium Level 152 mmol/L (136-145) Potassium Level 4.6 mmol/L (3.5-5.1) Chloride Level 106 mmol/L (98-107) Carbon Dioxide Level 43 mmol/L (21-32) Anion Gap 3 (6-14) Blood Urea Nitrogen 29 mg/dL (7-20) Creatinine 0.9 mg/dL (0.6-1.0) Estimated GFR (Cockcroft-Gault) 63.9 Glucose Level 342 mg/dL (70-99) Calcium Level 9.1 mg/dL (8.5-10.1) Influenza Type A Antigen Negative (NEGATIVE) Influenza Type B Antigen Negative (NEGATIVE) Test 11/29/18 07:45 Glucose (Fingerstick) 327 mg/dL (70-99) Laboratory Tests Test 11/28/18 11:15 11/28/18 12:06 11/28/18 13:42 11/28/18 17:04 Glucose (Fingerstick) 420 mg/dL (70-99) 344 mg/dL (70-99) 282 mg/dL (70-99) Sodium Level 148 mmol/L (136-145) Potassium Level 5.0 mmol/L (3.5-5.1) Chloride Level 103 mmol/L (98-107) Carbon Dioxide Level 44 mmol/L (21-32) Anion Gap 1 (6-14) Blood Urea Nitrogen 41 mg/dL (7-20) Creatinine 1.0 mg/dL (0.6-1.0) Estimated GFR (Cockcroft-Gault) 56.6 Glucose Level 401 mg/dL (70-99) Calcium Level 9.1 mg/dL (8.5-10.1) Test 11/28/18 21:37 11/29/18 07:15 11/29/18 07:44 11/29/18 07:45 Glucose (Fingerstick) 214 mg/dL (70-99) 327 mg/dL (70-99) White Blood Count 9.5 x10^3/uL (4.0-11.0) Red Blood Count 4.77 x10^6/uL (3.50-5.40) Hemoglobin 11.5 g/dL (12.0-15.5) Hematocrit 38.5 % (36.0-47.0) Mean Corpuscular Volume 81 fL (79-100) Mean Corpuscular Hemoglobin 24 pg (25-35) Mean Corpuscular Hemoglobin Concent 30 g/dL (31-37) Red Cell Distribution Width 16.7 % (11.5-14.5) Platelet Count 373 x10^3/uL (140-400) Neutrophils (%) (Auto) 92 % (31-73) Lymphocytes (%) (Auto) 3 % (24-48) Monocytes (%) (Auto) 5 % (0-9) Eosinophils (%) (Auto) 0 % (0-3) Basophils (%) (Auto) 0 % (0-3) Neutrophils # (Auto) 8.7 x10^3/uL (1.8-7.7) Lymphocytes # (Auto) 0.3 x10^3/uL (1.0-4.8) Monocytes # (Auto) 0.5 x10^3/uL (0.0-1.1) Eosinophils # (Auto) 0.0 x10^3/uL (0.0-0.7) Basophils # (Auto) 0.0 x10^3/uL (0.0-0.2) Sodium Level 152 mmol/L (136-145) Potassium Level 4.6 mmol/L (3.5-5.1) Chloride Level 106 mmol/L (98-107) Carbon Dioxide Level 43 mmol/L (21-32) Anion Gap 3 (6-14) Blood Urea Nitrogen 29 mg/dL (7-20) Creatinine 0.9 mg/dL (0.6-1.0) Estimated GFR (Cockcroft-Gault) 63.9 Glucose Level 342 mg/dL (70-99) Calcium Level 9.1 mg/dL (8.5-10.1) Influenza Type A Antigen Negative (NEGATIVE) Influenza Type B Antigen Negative (NEGATIVE) Medications Active Scripts Medications Dose Route/Sig Max Daily Dose Days Date Category Lasix (Furosemide) 20 Mg Tablet 20 Mg PO DAILY 11/24/18 Reported Metoprolol Succinate ( Xl ) (Metoprolol Succinate) 25 Mg Tab.er.24h 50 Mg PO DAILY 11/24/18 Reported Acetaminophen 650 Mg/20.3 Ml Solution 650 Mg FT PRN PRN 11/24/18 Reported Miralax (Polyethylene Glycol 3350) 17 Gm Powd.pack 1 Pkt PO DAILY 11/24/18 Reported Ferrous Sulfate 325 Mg Tablet 325 Mg PO BID 11/24/18 Reported Seroquel (Quetiapine Fumarate) 200 Mg Tablet 200 Mg PO HS 11/24/18 Reported Melatonin 3 Mg Tablet 3 Mg PO HS 11/24/18 Reported Proair Hfa Inhaler (Albuterol Sulfate) 8.5 Gm Hfa.aer.ad 1 Puff INH PRN Q6HRS PRN 10/13/18 Rx Proair Hfa Inhaler (Albuterol Sulfate) 8.5 Gm Hfa.aer.ad 2 Puff INH PRN Q6HRS PRN 03/03/18 Rx Colace 2-in-1 Tablet (Sennosides/Docusate Sodium) 1 Each Tablet 1 Each PO BID PRN 01/02/18 Rx Glucophage (Metformin Hcl) 500 Mg Tablet 1,000 Mg PO BIDWMEALS 05/20/15 Rx Simvastatin 10 Mg Tablet 10 Mg PO HS 10/13/14 Reported Symbicort 160-4.5 Mcg Inhaler (Budesonide/Formoterol Fumarate) 10.2 Gm Hfa.aer.ad 2 Puff IH BID 08/13/14 Reported Albuterol Sulfate Hfa Inhaler (Albuterol Sulfate) 8.5 Gm Hfa.aer.ad 2 Puff INH Q4HRS 08/13/14 Reported Comments cxr possible mild CHF Impression . 1. Acute on chronic hypoxemic hypercarbic respiratory failure, multifactorial in etiology, including acute exacerbation of chronic obstructive pulmonary disease, acute bronchitis , acute diastolic congestive heart failure 2. Acute exacerbation of chronic obstructive pulmonary disease. 3. Acute bronchitis 4. Acute diastolic congestive heart failure. 5. Mental retardation. 6. Hypertension. 7. Diabetes mellitus. 8. New onset atrial fibrillation with rapid ventricular response, now in sinus rhythm. 9. encephalopathy Plan . 1. Back on BIPAP 2. ABG improved. try off BiPAP once more awake. use VM, keep sats @90-92% 3. Continue steroids.taper dose 4. Continue antibiotic. 5. Lasix prn 6. Cardiology rec 8. Leave anticoagulation to Cardiology regarding AFib with rapid ventricular response. 9. Elevate head of bed. 10. Bronchodilator. 11. reduce ativan dose 11. DNR/DNI. CLEM SCHAEFER MD Nov 29, 2018 10:47
[2018-11-29] MEDS: dilTIAZem INJ 125 MG in IV DEXTROSE 5% 100ML 100 ML IV PRN ×2 (11:38→19:47)
--- NOTE | 2018-11-29 11:54 | PDOC ---
ARIANNA MEJIA HEATER OPERATOR HELPER 11/29/18 1154: CARDIO Progress Notes Date and Time Date of Service 11/29/2018 Time of Evaluation 1140 Subjective Subjective: Other (Sleeping) Vitals Vitals Vital Signs Date Time Temp Pulse Resp B/P (MAP) Pulse Ox O2 Delivery O2 Flow Rate FiO2 11/29/18 11:00 101.8 117 23 137/65 (89) 93 Venturi Mask 101.8 11/29/18 07:56 15.0 Weight Weight [ ] Input and Output Intake and Output Intake and Output 11/29/18 07:00 # Voids 6 # Bowel Movements 2 Laboratory Labs Laboratory Tests Test 11/28/18 12:06 11/28/18 13:42 11/28/18 17:04 11/28/18 21:37 Sodium Level 148 mmol/L (136-145) Potassium Level 5.0 mmol/L (3.5-5.1) Chloride Level 103 mmol/L (98-107) Carbon Dioxide Level 44 mmol/L (21-32) Anion Gap 1 (6-14) Blood Urea Nitrogen 41 mg/dL (7-20) Creatinine 1.0 mg/dL (0.6-1.0) Estimated GFR (Cockcroft-Gault) 56.6 Glucose Level 401 mg/dL (70-99) Calcium Level 9.1 mg/dL (8.5-10.1) Glucose (Fingerstick) 344 mg/dL (70-99) 282 mg/dL (70-99) 214 mg/dL (70-99) Test 11/29/18 07:15 11/29/18 07:44 11/29/18 07:45 11/29/18 11:33 White Blood Count 9.5 x10^3/uL (4.0-11.0) Red Blood Count 4.77 x10^6/uL (3.50-5.40) Hemoglobin 11.5 g/dL (12.0-15.5) Hematocrit 38.5 % (36.0-47.0) Mean Corpuscular Volume 81 fL (79-100) Mean Corpuscular Hemoglobin 24 pg (25-35) Mean Corpuscular Hemoglobin Concent 30 g/dL (31-37) Red Cell Distribution Width 16.7 % (11.5-14.5) Platelet Count 373 x10^3/uL (140-400) Neutrophils (%) (Auto) 92 % (31-73) Lymphocytes (%) (Auto) 3 % (24-48) Monocytes (%) (Auto) 5 % (0-9) Eosinophils (%) (Auto) 0 % (0-3) Basophils (%) (Auto) 0 % (0-3) Neutrophils # (Auto) 8.7 x10^3/uL (1.8-7.7) Lymphocytes # (Auto) 0.3 x10^3/uL (1.0-4.8) Monocytes # (Auto) 0.5 x10^3/uL (0.0-1.1) Eosinophils # (Auto) 0.0 x10^3/uL (0.0-0.7) Basophils # (Auto) 0.0 x10^3/uL (0.0-0.2) Sodium Level 152 mmol/L (136-145) Potassium Level 4.6 mmol/L (3.5-5.1) Chloride Level 106 mmol/L (98-107) Carbon Dioxide Level 43 mmol/L (21-32) Anion Gap 3 (6-14) Blood Urea Nitrogen 29 mg/dL (7-20) Creatinine 0.9 mg/dL (0.6-1.0) Estimated GFR (Cockcroft-Gault) 63.9 Glucose Level 342 mg/dL (70-99) Calcium Level 9.1 mg/dL (8.5-10.1) Influenza Type A Antigen Negative (NEGATIVE) Influenza Type B Antigen Negative (NEGATIVE) Glucose (Fingerstick) 327 mg/dL (70-99) 285 mg/dL (70-99) Microbiology Micro Microbiology 11/24/18 Urine Culture - Final, Complete 11/24/18 Urine Culture Result 1 (MELO) - Final, Complete Physical Exam HEENT: Neck Supple W Full Motion Chest: Symmetric LUNGS: Other (diminished/bipap in place) Heart: irregularly irregular (AFIB) Abdomen: Soft N/T, Other (obese) Extremities: Other (1+ bilateral LE pitting edema) Neurology: other (drowsy with recent ativan; on 1:1 supervision; hand mittens in place) Assessment Assessment 1. Acute hypercapnic respiratory failure/AECOPD 2. Atrial fibrillation with RVR: refractory 3. Mild acute diastolic CHF: precipitated by COPD and RVR. EF nml 4. Metabolic encephalopathy with underlying mental retardation 5. HTN: better. 6. DM2/HLP Recommendations 1. Currently on 1:1 supervision, Bipap in place. 2. Pt remains NPO, Cardizem drip. PRN IV lopressor. Lovenox. 3. Family wanted palliative treatment. Will defer further to PCP. Will sign off. NOELLE RYAN MD 11/29/182023: CARDIO Progress Notes Assessment Assessment Patient seen and examined. Agree with ASSISTANT VICE PRESIDENT's assessment and plan. Afib rate better but still elevated Continue CZM gtt and use digoxin prn for rate control Family requesting palliative care Pulm following for acute resp failure ARIANNA MEJIA HEATER OPERATOR HELPER Nov 29, 2018 11:54 NOELLE RYAN MD Nov 29, 2018 20:24
[2018-11-29] MEDS: cefTRIAXone IV Push 1 GM VIAL. IVP SCH (12:33)
--- NOTE | 2018-11-29 13:17 | NUR ---
SS following up with discharge planning. SS phoned and fax referral to [facility], ; fax [phone]. SS will await acceptance decision and insurance determination and will proceed accordingly with discharge planning.
--- NOTE | 2018-11-29 14:59 | PDOC2 ---
PALLIATIVE CARE Palliative Care Note Palliative Care Spoke with patient's guardian and her last evening. Updated on condition, labs, imaging and plan of care. They want to continue current treatment plan. Concerned about her not waking up. Seen 8:45 am. Was on BiPap throughout night and now on Venti-mask. Restless at times. Remans 1:1. Will continue to re-evaluate. ARIANNA AMEZQUITA Nov 29, 2018 14:59
[2018-11-29] MEDS: LURASIDONE 40 MG TABLET. PO SCH (19:04)
[2018-11-29] MEDS: SIMVASTATIN 10 MG TABLET PO SCH (19:04)
[2018-11-29] MEDS: INSULIN GLARGINE SYRINGE. SQ SCH (22:00)
[2018-11-30] VITALS (18 sets, daily range): BP systolic 114–183; BP diastolic 50–89
[2018-11-30] MEDS: METOPROLOL TARTRATE 5 MG/5 ML VIAL. IVP PRN ×2 (01:02→07:51)
[2018-11-30] MEDS: IV 1/2 NORMAL SALINE 1,000 ML IV SCH ×2 (02:31→21:07)
[2018-11-30 04:12] LABS: BASO % 0 % (0-3); EOS % 0 % (0-3); HEMATOCRIT 40.4 % (36.0-47.0); HEMOGLOBIN 11.8 g/dL (12.0-15.5); LYMPH # 0.4 x10^3/uL (1.0-4.8); LYMPH % 3 % (24-48); MEAN CORPUSCULAR HEMOGLOBIN 24 pg (25-35); MEAN CORPUSCULAR HGB CONC 29 g/dL (31-37); MEAN CORPUSCULAR VOLUME 82 fL (79-100); MONO % 8 % (0-9); NEUT % 88 % (31-73); PLATELET COUNT 338 x10^3/uL (140-400); RED BLOOD COUNT 4.91 x10^6/uL (3.50-5.40); RED CELL DISTRIBUTION WIDTH 16.9 % (11.5-14.5); WHITE BLOOD COUNT 12.4 x10^3/uL (4.0-11.0)
[2018-11-30 04:25] LABS: BLOOD UREA NITROGEN 24 mg/dL (7-20); CALCIUM 9.1 mg/dL (8.5-10.1); CHLORIDE 109 mmol/L (98-107); CREATININE 0.7 mg/dL (0.6-1.0); GFR 85.4; GLUCOSE 265 mg/dL (70-99); POTASSIUM 4.4 mmol/L (3.5-5.1); SODIUM 155 mmol/L (136-145)
[2018-11-30 04:38] LABS: CARBON DIOXIDE > 45 mmol/L (21-32)
[2018-11-30] MEDS: methylPREDNISolone SOD SUCC PF 40 MG/ML VIAL. IV SCH ×3 (07:52→21:06)
[2018-11-30] MEDS: INSULIN LISPRO 300 UNITS/3 ML VIAL. SQ SCH ×7 (07:57→21:00)
[2018-11-30] MEDS: FERROUS SULFATE 325 MG TABLET. PO SCH ×2 (08:00→17:00)
[2018-11-30] MEDS: metFORMIN 500 MG TABLET PO SCH ×2 (08:00→17:00)
[2018-11-30] MEDS: LACTOBACILLUS RHAMNOSUS GG 1 CAPSULE. PO SCH ×2 (09:00→20:58)
[2018-11-30] MEDS: FUROSEMIDE 20 MG TABLET PO SCH (09:00)
[2018-11-30] MEDS: GABAPENTIN 300 MG CAPSULE. PO SCH ×2 (09:00→20:58)
[2018-11-30] MEDS: POLYETHYLENE GLYCOL 3350 17 GM PACKET. PO SCH (09:00)
[2018-11-30] MEDS: METOPROLOL SUCC 24HR ER 25 MG TAB.ER.24H. PO SCH (09:00)
[2018-11-30] MEDS: IPRATRPIUM/ALBUTEROL 0.5/2.5MG 3 ML NEBU. NEB SCH ×4 (09:34→20:30)
--- NOTE | 2018-11-30 10:22 | NUR ---
SS following up with discharge planning. Pt accepted at [facility], ; fax [phone], pending insurance authorization from [facility]. SS will await insurance determination and will proceed accordingly with discharge planning.
--- NOTE | 2018-11-30 10:39 | PDOC ---
[employer] PROGRESS NOTE Chief Complaint Chief Complaint Altered mental status, likely med related COPD Exacerbation Severe hypercapnic resp failure, slow to improve Uncontrolled DM Depression GERD COPD Tobacco Abuse HX Obesity BMI 44 Mental retardation History of Present Illness History of Present Illness 9�13�2019 Patient seen and examined Discussed with RN Patient is still on one-to-one observation and on BiPAP Basically unresponsive 11/29/18 Pt seen and examined at bedside Pt unresponsive upon sternal rub, but appears in NAD 1:[address] On BiPaP upon entry- 45%FiO2 DW RN 11/28/18 Pt seen and examined at bedside 1:[address] On BiPaP upon entry- 45%FiO2 DW RN 11/27/18 Pt seen and examined at bedside resting with NAD On BiPap upon entry DW RN VTE Prophylaxis Ordered VTE Prophylaxis Devices: Yes VTE Pharmacological Prophylaxi: Yes Assessment/Plan Vitals/I&O Vitals/I&O: Vital Signs Date Time Temp Pulse Resp B/P (MAP) Pulse Ox O2 Delivery O2 Flow Rate FiO2 11/30/18 10:29 121 28 114/58 (76) 94 BiPAP/CPAP 11/30/18 07:02 100.3 100.3 11/29/18 20:00 15.0 I & O 11/29/18 11/29/18 11/30/18 14:59 22:59 06:59 Intake Total 0 ml 900 ml 0 ml Output Total 1 ml 1 ml Balance -1 ml 899 ml 0 ml Physical Exam Physical Exam: Eyes: PERRLA, EOMI, conjunctiva normal, no discharge. [] Neck: Normal range of motion, no tenderness, supple, no stridor. [] Cardiovascular: Sinus tachycardia, regular rhythm, no murmur [] Lungs & Thorax: Bilateral breath sounds equal but wheezing. ] Abdomen: Bowel sounds normal, soft, no tenderness, no masses, no pulsatile masses. [] Skin: Warm, dry, no erythema, no rash. [] Back: No tenderness, no CVA tenderness. [] Extremities: No tenderness, no cyanosis, no clubbing, Heart: Regular rate, Normal S1 Lungs: Wheezing, Other (decrease) Abdomen: Normal bowel sounds, Soft, No tenderness Extremities: No clubbing, No cyanosis, No tenderness/swelling Skin: No rashes, No significant lesion Labs Labs: Laboratory Tests Test 11/29/18 11:33 11/29/18 16:54 9/12/19 21:31 11/30/18 03:30 Glucose (Fingerstick) 285 mg/dL (70-99) 183 mg/dL (70-99) 158 mg/dL (70-99) White Blood Count 12.4 x10^3/uL (4.0-11.0) Red Blood Count 4.91 x10^6/uL (3.50-5.40) Hemoglobin 11.8 g/dL (12.0-15.5) Hematocrit 40.4 % (36.0-47.0) Mean Corpuscular Volume 82 fL (79-100) Mean Corpuscular Hemoglobin 24 pg (25-35) Mean Corpuscular Hemoglobin Concent 29 g/dL (31-37) Red Cell Distribution Width 16.9 % (11.5-14.5) Platelet Count 338 x10^3/uL (140-400) Neutrophils (%) (Auto) 88 % (31-73) Lymphocytes (%) (Auto) 3 % (24-48) Monocytes (%) (Auto) 8 % (0-9) Eosinophils (%) (Auto) 0 % (0-3) Basophils (%) (Auto) 0 % (0-3) Neutrophils # (Auto) 11.0 x10^3/uL (1.8-7.7) Lymphocytes # (Auto) 0.4 x10^3/uL (1.0-4.8) Monocytes # (Auto) 1.0 x10^3/uL (0.0-1.1) Eosinophils # (Auto) 0.0 x10^3/uL (0.0-0.7) Basophils # (Auto) 0.0 x10^3/uL (0.0-0.2) Sodium Level 155 mmol/L (136-145) Potassium Level 4.4 mmol/L (3.5-5.1) Chloride Level 109 mmol/L (98-107) Carbon Dioxide Level > 45 mmol/L (21-32) Anion Gap (6-14) Blood Urea Nitrogen 24 mg/dL (7-20) Creatinine 0.7 mg/dL (0.6-1.0) Estimated GFR (Cockcroft-Gault) 85.4 Glucose Level 265 mg/dL (70-99) Calcium Level 9.1 mg/dL (8.5-10.1) Test 11/30/18 07:06 Glucose (Fingerstick) 267 mg/dL (70-99) Review of Systems Review of Systems: Unable to obtain Assessment and Plan Assessmemt and Plan Problems Medical Problems: (1) Acute bronchitis Status: Acute (2) Acute diastolic CHF (congestive heart failure) Status: Acute (3) Altered mental status Status: Acute (4) Atrial fibrillation with RVR Status: Acute (5) COPD (chronic obstructive pulmonary disease) Status: Chronic (6) COPD exacerbation Status: Acute (7) hypercapnia Status: Acute (8) GERD (gastroesophageal reflux disease) Status: Chronic (9) HLD (hyperlipidemia) Status: Chronic (10) HTN (hypertension) Status: Chronic (11) Hypercapnia Status: Acute (12) Hypercapnic respiratory failure Status: Acute (13) Uncontrolled diabetes mellitus Status: Chronic (14) UTI (urinary tract infection) Status: Acute . Assessment Altered mental status, likely med related COPD Exacerbation Severe hypercapnic resp failure, slow to improve Uncontrolled DM Depression GERD COPD Tobacco Abuse HX Obesity BMI 44 Mental retardation Plan Duonebs IV steroids IV ABX O2 PRN Cont BiPaP Continue 1:1 observation Cardiac monitoring Serial enzymes PPN: Procalamine 50/hr Cardizem DVT prophylaxis PT/OT Home meds LTAC eval in progress Await palliative care input Per pulmonary's plans see below Plan Plan . 1. Back on BIPAP 2. ABG improved. try off BiPAP once more awake. use VM, keep sats @90-92% 3. Continue steroids.taper dose 4. Continue antibiotic. 5. Lasix prn 6. Cardiology rec 8. Leave anticoagulation to Cardiology regarding AFib with rapid ventricular response. 9. Elevate head of bed. 10. Bronchodilator. 11. reduce ativan dose 11. DNR/DNI. Comment Review of Relevant I have reviewed the following items ana (where applicable) has been applied. Medications: Current Medications Medications (Trade) Dose Ordered Sig/[place] Route PRN Reason Start Time Stop Time Status Last Admin Dose Admin Lorazepam (Ativan Inj) 0.5 mg PRN Q4HRS PRN IV ANXIETY / AGITATION 11/29/18 11:00 11/30/18 02:44 Methylprednisolone Sodium Succinate (SOLU-Medrol 40MG VIAL) 40 mg Q8HRS IV 11/29/18 11:00 11/30/18 07:52 PARTHA EPPS III DO Nov 30, 2018 10:39
--- NOTE | 2018-11-30 12:05 | PDOC ---
PULMONARY PROGRESS NOTES Subjective remains on BIPAP still sleepy, received IV ativan early am drop sats while off O2 Vitals Vital Signs Date Time Temp Pulse Resp B/P (MAP) Pulse Ox O2 Delivery O2 Flow Rate FiO2 11/30/18 11:31 98.8 118 28 127/61 (83) 89 BiPAP/CPAP 98.8 11/29/18 20:00 15.0 Lungs: Other (decrease) Cardiovascular: S1 Abdomen: Soft Extremities: Other (1+edema) Skin: Warm Labs Laboratory Tests Test 11/28/18 12:06 11/28/18 13:42 11/28/18 17:04 11/28/18 21:37 Sodium Level 148 mmol/L (136-145) Potassium Level 5.0 mmol/L (3.5-5.1) Chloride Level 103 mmol/L (98-107) Carbon Dioxide Level 44 mmol/L (21-32) Anion Gap 1 (6-14) Blood Urea Nitrogen 41 mg/dL (7-20) Creatinine 1.0 mg/dL (0.6-1.0) Estimated GFR (Cockcroft-Gault) 56.6 Glucose Level 401 mg/dL (70-99) Calcium Level 9.1 mg/dL (8.5-10.1) Glucose (Fingerstick) 344 mg/dL (70-99) 282 mg/dL (70-99) 214 mg/dL (70-99) Test 11/29/18 07:15 11/29/18 07:44 11/29/18 07:45 11/29/18 11:33 White Blood Count 9.5 x10^3/uL (4.0-11.0) Red Blood Count 4.77 x10^6/uL (3.50-5.40) Hemoglobin 11.5 g/dL (12.0-15.5) Hematocrit 38.5 % (36.0-47.0) Mean Corpuscular Volume 81 fL (79-100) Mean Corpuscular Hemoglobin 24 pg (25-35) Mean Corpuscular Hemoglobin Concent 30 g/dL (31-37) Red Cell Distribution Width 16.7 % (11.5-14.5) Platelet Count 373 x10^3/uL (140-400) Neutrophils (%) (Auto) 92 % (31-73) Lymphocytes (%) (Auto) 3 % (24-48) Monocytes (%) (Auto) 5 % (0-9) Eosinophils (%) (Auto) 0 % (0-3) Basophils (%) (Auto) 0 % (0-3) Neutrophils # (Auto) 8.7 x10^3/uL (1.8-7.7) Lymphocytes # (Auto) 0.3 x10^3/uL (1.0-4.8) Monocytes # (Auto) 0.5 x10^3/uL (0.0-1.1) Eosinophils # (Auto) 0.0 x10^3/uL (0.0-0.7) Basophils # (Auto) 0.0 x10^3/uL (0.0-0.2) Sodium Level 152 mmol/L (136-145) Potassium Level 4.6 mmol/L (3.5-5.1) Chloride Level 106 mmol/L (98-107) Carbon Dioxide Level 43 mmol/L (21-32) Anion Gap 3 (6-14) Blood Urea Nitrogen 29 mg/dL (7-20) Creatinine 0.9 mg/dL (0.6-1.0) Estimated GFR (Cockcroft-Gault) 63.9 Glucose Level 342 mg/dL (70-99) Calcium Level 9.1 mg/dL (8.5-10.1) Influenza Type A Antigen Negative (NEGATIVE) Influenza Type B Antigen Negative (NEGATIVE) Glucose (Fingerstick) 327 mg/dL (70-99) 285 mg/dL (70-99) Test 11/29/18 16:54 11/29/18 21:31 11/30/18 03:30 11/30/18 07:06 Glucose (Fingerstick) 183 mg/dL (70-99) 158 mg/dL (70-99) 267 mg/dL (70-99) White Blood Count 12.4 x10^3/uL (4.0-11.0) Red Blood Count 4.91 x10^6/uL (3.50-5.40) Hemoglobin 11.8 g/dL (12.0-15.5) Hematocrit 40.4 % (36.0-47.0) Mean Corpuscular Volume 82 fL (79-100) Mean Corpuscular Hemoglobin 24 pg (25-35) Mean Corpuscular Hemoglobin Concent 29 g/dL (31-37) Red Cell Distribution Width 16.9 % (11.5-14.5) Platelet Count 338 x10^3/uL (140-400) Neutrophils (%) (Auto) 88 % (31-73) Lymphocytes (%) (Auto) 3 % (24-48) Monocytes (%) (Auto) 8 % (0-9) Eosinophils (%) (Auto) 0 % (0-3) Basophils (%) (Auto) 0 % (0-3) Neutrophils # (Auto) 11.0 x10^3/uL (1.8-7.7) Lymphocytes # (Auto) 0.4 x10^3/uL (1.0-4.8) Monocytes # (Auto) 1.0 x10^3/uL (0.0-1.1) Eosinophils # (Auto) 0.0 x10^3/uL (0.0-0.7) Basophils # (Auto) 0.0 x10^3/uL (0.0-0.2) Sodium Level 155 mmol/L (136-145) Potassium Level 4.4 mmol/L (3.5-5.1) Chloride Level 109 mmol/L (98-107) Carbon Dioxide Level > 45 mmol/L (21-32) Anion Gap (6-14) Blood Urea Nitrogen 24 mg/dL (7-20) Creatinine 0.7 mg/dL (0.6-1.0) Estimated GFR (Cockcroft-Gault) 85.4 Glucose Level 265 mg/dL (70-99) Calcium Level 9.1 mg/dL (8.5-10.1) Test 11/30/18 11:30 Glucose (Fingerstick) 228 mg/dL (70-99) Laboratory Tests Test 11/29/18 16:54 11/29/18 21:31 11/30/18 03:30 11/30/18 07:06 Glucose (Fingerstick) 183 mg/dL (70-99) 158 mg/dL (70-99) 267 mg/dL (70-99) White Blood Count 12.4 x10^3/uL (4.0-11.0) Red Blood Count 4.91 x10^6/uL (3.50-5.40) Hemoglobin 11.8 g/dL (12.0-15.5) Hematocrit 40.4 % (36.0-47.0) Mean Corpuscular Volume 82 fL (79-100) Mean Corpuscular Hemoglobin 24 pg (25-35) Mean Corpuscular Hemoglobin Concent 29 g/dL (31-37) Red Cell Distribution Width 16.9 % (11.5-14.5) Platelet Count 338 x10^3/uL (140-400) Neutrophils (%) (Auto) 88 % (31-73) Lymphocytes (%) (Auto) 3 % (24-48) Monocytes (%) (Auto) 8 % (0-9) Eosinophils (%) (Auto) 0 % (0-3) Basophils (%) (Auto) 0 % (0-3) Neutrophils # (Auto) 11.0 x10^3/uL (1.8-7.7) Lymphocytes # (Auto) 0.4 x10^3/uL (1.0-4.8) Monocytes # (Auto) 1.0 x10^3/uL (0.0-1.1) Eosinophils # (Auto) 0.0 x10^3/uL (0.0-0.7) Basophils # (Auto) 0.0 x10^3/uL (0.0-0.2) Sodium Level 155 mmol/L (136-145) Potassium Level 4.4 mmol/L (3.5-5.1) Chloride Level 109 mmol/L (98-107) Carbon Dioxide Level > 45 mmol/L (21-32) Anion Gap (6-14) Blood Urea Nitrogen 24 mg/dL (7-20) Creatinine 0.7 mg/dL (0.6-1.0) Estimated GFR (Cockcroft-Gault) 85.4 Glucose Level 265 mg/dL (70-99) Calcium Level 9.1 mg/dL (8.5-10.1) Test 11/30/18 11:30 Glucose (Fingerstick) 228 mg/dL (70-99) Medications Active Scripts Medications Dose Route/Sig Max Daily Dose Days Date Category Lasix (Furosemide) 20 Mg Tablet 20 Mg PO DAILY 11/24/18 Reported Metoprolol Succinate ( Xl ) (Metoprolol Succinate) 25 Mg Tab.er.24h 50 Mg PO DAILY 11/24/18 Reported Acetaminophen 650 Mg/20.3 Ml Solution 650 Mg FT PRN PRN 11/24/18 Reported Miralax (Polyethylene Glycol 3350) 17 Gm Powd.pack 1 Pkt PO DAILY 11/24/18 Reported Ferrous Sulfate 325 Mg Tablet 325 Mg PO BID 11/24/18 Reported Seroquel (Quetiapine Fumarate) 200 Mg Tablet 200 Mg PO HS 11/24/18 Reported Melatonin 3 Mg Tablet 3 Mg PO HS 11/24/18 Reported Proair Hfa Inhaler (Albuterol Sulfate) 8.5 Gm Hfa.aer.ad 1 Puff INH PRN Q6HRS PRN 10/13/18 Rx Proair Hfa Inhaler (Albuterol Sulfate) 8.5 Gm Hfa.aer.ad 2 Puff INH PRN Q6HRS PRN 03/03/18 Rx Colace 2-in-1 Tablet (Sennosides/Docusate Sodium) 1 Each Tablet 1 Each PO BID PRN 01/02/18 Rx Glucophage (Metformin Hcl) 500 Mg Tablet 1,000 Mg PO BIDWMEALS 05/20/15 Rx Simvastatin 10 Mg Tablet 10 Mg PO HS 10/13/14 Reported Symbicort 160-4.5 Mcg Inhaler (Budesonide/Formoterol Fumarate) 10.2 Gm Hfa.aer.ad 2 Puff IH BID 08/13/14 Reported Albuterol Sulfate Hfa Inhaler (Albuterol Sulfate) 8.5 Gm Hfa.aer.ad 2 Puff INH Q4HRS 08/13/14 Reported Comments cxr possible mild CHF Impression . 1. Acute on chronic hypoxemic hypercarbic respiratory failure, multifactorial in etiology, including acute exacerbation of chronic obstructive pulmonary disease, acute bronchitis , acute diastolic congestive heart failure 2. Acute exacerbation of chronic obstructive pulmonary disease. 3. Acute bronchitis 4. Acute diastolic congestive heart failure. 5. Mental retardation. 6. Hypertension. 7. Diabetes mellitus. 8. New onset atrial fibrillation with rapid ventricular response, now in sinus rhythm. 9. encephalopathy, likely sedation induced Plan . 1. BIPAP. cxr to r/o any worsening CHF 2. ABG improved. 3. Continue steroids.taper dose 4. Continue antibiotic. 5. Lasix prn 6. Cardiology rec 8. Leave anticoagulation to Cardiology regarding AFib with rapid ventricular response. 9. Elevate head of bed. 10. Bronchodilator. 11. dc ativan 11. DNR/DNI. d/w daughter. Not ready to leave for hospice CLEM SCHAEFER MD Nov 30, 2018 12:05
--- NOTE | 2018-11-30 12:49 | PDOC2 ---
NEUROLOGY CONSULT Date of Admission Date of Admission DATE: 11/30/18 TIME: 12:37 Reason for Consult Reason for Consult: Altered mental status Referring Physician Referring Physician: Dr. Johnson Source Source: Caregiver (sister), Chart review History of Present Illness History of Present Illness The patient is a 58-year-old right-handed female whom I last saw the office 17 months ago with a complaint of developmental delay. 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 She has been admitted with COPD exacerbation. She was previously at [facility] and then went to [facility] where she was bright and alert according the sister, even leaving with her boyfriend to go to the [facility] and coming home at 2 in the morning. Here in the hospital, I note that she has been on Ativan, up to 2 mg at time, most recently 0.5 mg at time, and it was finally stopped this morning. There is no history of stroke, seizure, head injury, alcohol, or street drug abuse. Sister says the patient is much more alert today than before. Patient has also been found to have new onset atrial fibrillation. Past Medical History Cardiovascular: HTN, Hyperlipidemia Pulmonary: Asthma, COPD CENTRAL NERVOUS SYSTEM: Dementia (intellectual disability) GI: Peptic Ulcer disease Hepatobiliary: Cholelithiasis Psych: Anxiety, Bipolar, Depression Musculoskeletal: Osteoarthritis, Other (neck pain, fractures) ENT: Other (hearing loss both ears) Renal/: UTI, Urinary Incontinence Endocrine: Diabetes Past Surgical History Past Surgical History: Cataract Removal, Tonsillectomy, Hysterectomy Family History Family History: CAD Social History Social History Disabled, smokes, sister thinks the patient stopped using alcohol and street drugs years ago, lives with her boyfriend who is 88 years old. Current Medications Current Medications Current Medications Albuterol/ Ipratropium (Duoneb) 3 ml 1X ONCE NEB Last administered on 11/24/18at 12:22; Start 11/24/18 at 11:15; Stop 11/24/18 at 11:17; Status DC Ceftriaxone Sodium (Rocephin) 1 gm 1X ONCE IVP Last administered on 11/24/18at 13:00; Start 11/24/18 at 12:45; Stop 11/24/18 at 12:46; Status DC Albuterol/ Ipratropium (Duoneb) 3 ml 1X ONCE NEB Last administered on 11/24/18at 14:43; Start 11/24/18 at 12:45; Stop 11/24/18 at 12:46; Status DC Ondansetron HCl (Zofran) 4 mg PRN Q8HRS PRN IV NAUSEA/VOMITING; Start 11/24/18 at 12:45; Stop 11/25/18 at 12:44; Status DC Sodium Chloride 1,000 ml @ 100 mls/hr Q10H IV Last administered on 11/24/18at 22:39; Start 11/24/18 at 12:36; Stop 11/25/18 at 12:35; Status DC Albuterol/ Ipratropium (Duoneb) 3 ml RTQID NEB Last administered on 11/25/18at 15:27; Start 11/24/18 at 16:00; Stop 11/25/18 at 15:59; Status DC Lorazepam (Ativan Inj) 0.5 mg 1X ONCE IV Last administered on 11/24/18at 17:03; Start 11/24/18 at 16:30; Stop 11/24/18 at 16:31; Status DC Acetaminophen (Tylenol) 650 mg PRN Q6HRS PRN PO PAIN; Start 11/24/18 at 17:30 Ferrous Sulfate (Feosol) 325 mg BIDWMEALS PO ; Start 11/24/18 at 17:30 Furosemide (Lasix) 20 mg DAILY PO ; Start 11/25/18 at 09:00 Gabapentin (Neurontin) 300 mg BID PO ; Start 11/24/18 at 21:00 Insulin Human Lispro (HumaLOG) 8 units TIDWMEALS SQ Last administered on 11/27/18at 13:10; Start 11/25/18 at 08:00; Stop 11/27/18 at 13:58; Status DC Metformin HCl (Glucophage) 1,000 mg BIDWMEALS PO ; Start 11/24/18 at 17:30 Metoprolol Succinate (Toprol Xl) 50 mg DAILY PO ; Start 11/25/18 at 09:00 Polyethylene Glycol (miraLAX PACKET) 17 gm DAILY PO ; Start 11/25/18 at 09:00 Senna/Docusate Sodium (Senna Plus) 1 tab PRN BID PRN PO CONSTIPATION; Start 11/24/18 at 17:30 Simvastatin (Zocor) 10 mg HS PO ; Start 11/24/18 at 21:00 Non-Formulary Medication (Albuterol Sulfate (Albuterol Sulfate Hfa Inhaler)) 2 puff Q4HRS INH ; Start 11/24/18 at 20:00; Status UNV Insulin Glargine (Lantus Syringe) 25 unit QHS SQ Last administered on 11/25/18at 20:46; Start 11/24/18 at 21:00; Stop 11/25/18 at 22:00; Status DC Non-Formulary Medication (Lurasidone Hcl (Latuda)) 60 mg HS PO ; Start 11/24/18 a t 21:00; Stop 11/25/18 at 11:26; Status DC Diltiazem HCl (Cardizem Iv Push) 10 mg 1X ONCE IVP Last administered on 11/24/18at 18:49; Start 11/24/18 at 18:30; Stop 11/24/18 at 19:08; Status DC Diltiazem HCl 125 mg/Dextrose 125 ml @ 5 mls/hr CONT PRN IV . Last administered on 11/29/18at 19:47; Start 11/24/18 at 18:30 Methylprednisolone Sodium Succinate (SOLU-Medrol 40MG VIAL) 80 mg Q8HRS IV Last administered on 11/29/18at 05:29; Start 11/25/18 at 06:00; Stop 11/29/18 at 10:48; Status DC Methylprednisolone Sodium Succinate (SOLU-Medrol 40MG VIAL) 80 mg 1X ONCE IV Last administered on 11/24/18at 23:09; Start 11/24/18 at 23:00; Stop 11/24/18 at 23:01; Status DC Lorazepam (Ativan Inj) 0.5 mg PRN Q6HRS PRN IV ANXIETY / AGITATION Last administered on 11/26/18at 15:48; Start 11/25/18 at 02:45; Stop 11/26/18 at 19:33; Status DC Furosemide (Lasix) 20 mg 1X ONCE IVP Last administered on 11/25/18 08:40; Start 11/25/18 at 07:30; Stop 11/25/18 at 07:31; Status DC Ceftriaxone Sodium (Rocephin) 1 gm Q24H IVP Last administered on 9/12/19at 12:33; Start 11/25/18 at 13:00 Lactobacillus Rhamnosus (Culturelle) 1 cap BID PO ; Start 11/25/18 at 09:00 Lurasidone HCl (Latuda) 60 mg QHS PO ; Start 11/25/18 at 21:00 Insulin Glargine (Lantus Syringe) 25 unit QHS SQ Last administered on 11/29/18at 22:00; Start 11/26/18 at 21:00 Insulin Human Lispro (HumaLOG) 0-7 UNITS TIDWMEALS SQ Last administered on 11/27/18at 13:10; Start 11/25/18 at 17:00; Stop 11/27/18 at 13:58; Status DC Dextrose (Dextrose 50%-Water Syringe) 12.5 gm PRN Q15MIN PRN IV SEE COMMENTS; Start 11/25/18 at 17:00; Stop 11/27/18 at 14:12; Status DC Dextrose 250 ml PRN Q15MIN PRN IV SEE COMMENTS; Start 11/25/18 at 17:00 Albuterol/ Ipratropium (Duoneb) 3 ml RTQID NEB Last administered on 11/30/18at 09:34; Start 11/25/18 at 20:00 Aspirin (Aspirin Rectal Supp) 300 mg 1X ONCE NE Last administered on 11/26/18at 10:36; Start 11/26/18 at 09:00; Stop 11/26/18 at 09:01; Status DC Aspirin (Ecotrin) 81 mg DAILYWBKFT PO ; Start 11/27/18 at 08:00; Stop 11/27/18 at 10:00; Status DC Magnesium Sulfate/ Dextrose 100 ml @ 100 mls/hr 1X ONCE IV Last administered on 11/26/18at 16:04; Start 11/26/18 at 15:15; Stop 11/26/18 at 16:14; Status DC Lorazepam (Ativan Inj) 2 mg PRN Q4HRS PRN IV ANXIETY / AGITATION Last administered on 11/28/18at 13:37; Start 11/26/18 at 19:30; Stop 11/29/18 at 10:48; Status DC Haloperidol Lactate (Haldol Inj) 5 mg 1X ONCE IVP Last administered on 11/26/18at 19:55; Start 11/26/18 at 19:30; Stop 11/26/18 at 19:38; Status DC Aspirin (Aspirin Rectal Supp) 150 mg DAILY NE Last administered on 11/27/18at 13:10; Start 11/27/18 at 10:30; Stop 11/28/18 at 08:03; Status DC Amino Acids/ Glycerin/ Electrolytes 1,000 ml @ 50 mls/hr Q20H IV Last administered on 11/27/18at 13:10; Start 11/27/18 at 12:15; Stop 11/28/18 at 14:00; Status DC Digoxin (Lanoxin) 500 mcg 1X ONCE IV Last administered on 11/27/18at 13:22; Start 11/27/18 at 13:00; Stop 11/27/18 at 13:07; Status DC Insulin Human Lispro (HumaLOG) 12 units TIDWMEALS SQ Last administered on 11/30/18at 07:58; Start 11/27/18 at 17:00 Insulin Human Lispro (HumaLOG) 0-7 UNITS TIDWMEALS SQ ; Start 11/27/18 at 17:00; Stop 11/27/18 at 16:34; Status DC Dextrose (Dextrose 50%-Water Syringe) 12.5 gm PRN Q15MIN PRN IV SEE COMMENTS; Start 11/27/18 at 14:00 Dextrose 250 ml PRN Q15MIN PRN IV SEE COMMENTS; Start 11/27/18 at 14:00 Metoprolol Tartrate (Lopressor Vial) 5 mg PRN Q5MIN PRN IVP TACHYCARDIA Last administered on 11/30/18at 07:52; Start 11/27/18 at 16:00 Enoxaparin Sodium (Lovenox Per Pharmacy Treatment Dosing) 1 each PRN DAILY PRN MC SEE COMMENTS; Start 11/27/18 at 16:00 Enoxaparin Sodium (Lovenox 100mg Syringe) 100 mg Q12HR SQ Last administered on 11/30/18at 11:09; Start 11/27/18 at 16:30 Insulin Human Lispro (HumaLOG) 0-9 UNITS TIDWMEALS SQ Last administered on 11/28/18at 12:19; Start 11/27/18 at 17:00; Stop 11/28/18 at 16:38; Status DC Acetaminophen (Tylenol Supp) 325 mg PRN Q6HRS PRN NE MILD PAIN / TEMP Last administered on 11/27/18at 17:02; Start 11/27/18 at 16:45 Sodium Polystyrene Sulfonate (Kayexalate) 30 gm 1X ONCE RC ; Start 11/28/18 at 12:00; Stop 11/28/18 at 12:01; Status DC Sodium Chloride 1,000 ml @ 60 mls/hr [id number] IV Last administered on 11/30/18at 02:31; Start 11/28/18 at 14:00 Insulin Human Lispro (HumaLOG) 0-9 UNITS QIDACHS SQ Last administered on 11/30/18at 07:58; Start 11/28/18 at 16:45 Ceftriaxone Sodium (Rocephin) 1 gm Q24H IVP ; Start 11/29/18 at 09:00; Status UNV Digoxin (Lanoxin) 250 mcg 1X ONCE IV Last administered on 11/29/18at 08:46; Start 11/29/18 at 08:30; Stop 11/29/18 at 08:31; Status DC Lorazepam (Ativan Inj) 0.5 mg PRN Q4HRS PRN IV ANXIETY / AGITATION Last administered on 11/30/18at 02:44; Start 11/29/18 at 11:00; Stop 11/30/18 at 11:45 ; Status DC Methylprednisolone Sodium Succinate (SOLU-Medrol 40MG VIAL) 40 mg Q8HRS IV Last administered on 11/30/18at 07:52; Start 11/29/18 at 11:00 Active Scripts Active Proair Hfa Inhaler (Albuterol Sulfate) 8.5 Gm Hfa.aer.ad 1 Puff INH PRN Q6HRS PRN Proair Hfa Inhaler (Albuterol Sulfate) 8.5 Gm Hfa.aer.ad 2 Puff INH PRN Q6HRS PRN Colace 2-in-1 Tablet (Sennosides/Docusate Sodium) 1 Each Tablet 1 Each PO BID PRN Glucophage (Metformin Hcl) 500 Mg Tablet 1,000 Mg PO BIDWMEALS Reported Lasix (Furosemide) 20 Mg Tablet 20 Mg PO DAILY Metoprolol Succinate ( Xl ) (Metoprolol Succinate) 25 Mg Tab.er.24h 50 Mg PO DAILY Acetaminophen 650 Mg/20.3 Ml Solution 650 Mg FT PRN PRN Miralax (Polyethylene Glycol 3350) 17 Gm Powd.pack 1 Pkt PO DAILY Ferrous Sulfate 325 Mg Tablet 325 Mg PO BID Seroquel (Quetiapine Fumarate) 200 Mg Tablet 200 Mg PO HS Melatonin 3 Mg Tablet 3 Mg PO HS Simvastatin 10 Mg Tablet 10 Mg PO HS Symbicort 160-4.5 Mcg Inhaler (Budesonide/Formoterol Fumarate) 10.2 Gm Hfa.aer.ad 2 Puff IH BID Albuterol Sulfate Hfa Inhaler (Albuterol Sulfate) 8.5 Gm Hfa.aer.ad 2 Puff INH Q4HRS Allergies Allergies: Coded Allergies: No Known Drug Allergies (Unverified , 03/03/13) ROS Review of System Negative for fever, chills, weight loss, shortness of breath, chest pain, indigestion, hematochezia, melena, and dysuria. Full 14-point review of systems is negative. Physical Exam Physical Examination General: Well-developed, well-nourished white female in no acute distress HEENT: Normocephalic and�atraumatic.�Temporal arteries�pulsatile and nontender.� Neck: Supple without bruit, no meningismus� Musculoskeletal: Stability:�see neurologic. Gait exam:�see neurologic. Tone:�see neurologic.�Strength:�see neurologic.� Neurological: Mental Status:�orientation, memory, attention span/concentration, language, fund of knowledge: Eyes are closed, she appears sleepy, arouses to voice, follows a few commands, nonverbal, on BiPAP. Cranial Nerves:�Pupils equal and reactive to light, extraocular movements are�intact, visual mclaughlin are full to threat. Facial sensation is normal. There is no facial asymmetry. All other cranial related problems are negative except as mentioned before.�Reflexes:�2+ and symmetric with flexor plantar responses. Motor:�Moves all extremities to light pain. Coordination and gait:�Not cooperative. Sensory:�Responds to pinprick in all 4 extremities. Vitals VITALS Vital Signs Date Time Temp Pulse Resp B/P (MAP) Pulse Ox O2 Delivery O2 Flow Rate FiO2 11/30/18 11:31 98.8 118 28 127/61 (83) 89 BiPAP/CPAP 98.8 11/29/18 20:00 15.0 Labs Labs Laboratory Tests Test 11/28/18 13:42 11/28/18 17:04 11/28/18 21:37 11/29/18 07:15 Glucose (Fingerstick) 344 mg/dL (70-99) 282 mg/dL (70-99) 214 mg/dL (70-99) White Blood Count 9.5 x10^3/uL (4.0-11.0) Red Blood Count 4.77 x10^6/uL (3.50-5.40) Hemoglobin 11.5 g/dL (12.0-15.5) Hematocrit 38.5 % (36.0-47.0) Mean Corpuscular Volume 81 fL (79-100) Mean Corpuscular Hemoglobin 24 pg (25-35) Mean Corpuscular Hemoglobin Concent 30 g/dL (31-37) Red Cell Distribution Width 16.7 % (11.5-14.5) Platelet Count 373 x10^3/uL (140-400) Neutrophils (%) (Auto) 92 % (31-73) Lymphocytes (%) (Auto) 3 % (24-48) Monocytes (%) (Auto) 5 % (0-9) Eosinophils (%) (Auto) 0 % (0-3) Basophils (%) (Auto) 0 % (0-3) Neutrophils # (Auto) 8.7 x10^3/uL (1.8-7.7) Lymphocytes # (Auto) 0.3 x10^3/uL (1.0-4.8) Monocytes # (Auto) 0.5 x10^3/uL (0.0-1.1) Eosinophils # (Auto) 0.0 x10^3/uL (0.0-0.7) Basophils # (Auto) 0.0 x10^3/uL (0.0-0.2) Sodium Level 152 mmol/L (136-145) Potassium Level 4.6 mmol/L (3.5-5.1) Chloride Level 106 mmol/L (98-107) Carbon Dioxide Level 43 mmol/L (21-32) Anion Gap 3 (6-14) Blood Urea Nitrogen 29 mg/dL (7-20) Creatinine 0.9 mg/dL (0.6-1.0) Estimated GFR (Cockcroft-Gault) 63.9 Glucose Level 342 mg/dL (70-99) Calcium Level 9.1 mg/dL (8.5-10.1) Test 11/29/18 07:44 11/29/18 07:45 11/29/18 11:33 11/29/18 16:54 Influenza Type A Antigen Negative (NEGATIVE) Influenza Type B Antigen Negative (NEGATIVE) Glucose (Fingerstick) 327 mg/dL (70-99) 285 mg/dL (70-99) 183 mg/dL (70-99) Test 11/29/18 21:31 11/30/18 03:30 11/30/18 07:06 11/30/18 11:30 Glucose (Fingerstick) 158 mg/dL (70-99) 267 mg/dL (70-99) 228 mg/dL (70-99) White Blood Count 12.4 x10^3/uL (4.0-11.0) Red Blood Count 4.91 x10^6/uL (3.50-5.40) Hemoglobin 11.8 g/dL (12.0-15.5) Hematocrit 40.4 % (36.0-47.0) Mean Corpuscular Volume 82 fL (79-100) Mean Corpuscular Hemoglobin 24 pg (25-35) Mean Corpuscular Hemoglobin Concent 29 g/dL (31-37) Red Cell Distribution Width 16.9 % (11.5-14.5) Platelet Count 338 x10^3/uL (140-400) Neutrophils (%) (Auto) 88 % (31-73) Lymphocytes (%) (Auto) 3 % (24-48) Monocytes (%) (Auto) 8 % (0-9) Eosinophils (%) (Auto) 0 % (0-3) Basophils (%) (Auto) 0 % (0-3) Neutrophils # (Auto) 11.0 x10^3/uL (1.8-7.7) Lymphocytes # (Auto) 0.4 x10^3/uL (1.0-4.8) Monocytes # (Auto) 1.0 x10^3/uL (0.0-1.1) Eosinophils # (Auto) 0.0 x10^3/uL (0.0-0.7) Basophils # (Auto) 0.0 x10^3/uL (0.0-0.2) Sodium Level 155 mmol/L (136-145) Potassium Level 4.4 mmol/L (3.5-5.1) Chloride Level 109 mmol/L (98-107) Carbon Dioxide Level > 45 mmol/L (21-32) Anion Gap (6-14) Blood Urea Nitrogen 24 mg/dL (7-20) Creatinine 0.7 mg/dL (0.6-1.0) Estimated GFR (Cockcroft-Gault) 85.4 Glucose Level 265 mg/dL (70-99) Calcium Level 9.1 mg/dL (8.5-10.1) Laboratory Tests Test 11/29/18 16:54 11/29/18 21:31 11/30/18 03:30 11/30/18 07:06 Glucose (Fingerstick) 183 mg/dL (70-99) 158 mg/dL (70-99) 267 mg/dL (70-99) White Blood Count 12.4 x10^3/uL (4.0-11.0) Red Blood Count 4.91 x10^6/uL (3.50-5.40) Hemoglobin 11.8 g/dL (12.0-15.5) Hematocrit 40.4 % (36.0-47.0) Mean Corpuscular Volume 82 fL (79-100) Mean Corpuscular Hemoglobin 24 pg (25-35) Mean Corpuscular Hemoglobin Concent 29 g/dL (31-37) Red Cell Distribution Width 16.9 % (11.5-14.5) Platelet Count 338 x10^3/uL (140-400) Neutrophils (%) (Auto) 88 % (31-73) Lymphocytes (%) (Auto) 3 % (24-48) Monocytes (%) (Auto) 8 % (0-9) Eosinophils (%) (Auto) 0 % (0-3) Basophils (%) (Auto) 0 % (0-3) Neutrophils # (Auto) 11.0 x10^3/uL (1.8-7.7) Lymphocytes # (Auto) 0.4 x10^3/uL (1.0-4.8) Monocytes # (Auto) 1.0 x10^3/uL (0.0-1.1) Eosinophils # (Auto) 0.0 x10^3/uL (0.0-0.7) Basophils # (Auto) 0.0 x10^3/uL (0.0-0.2) Sodium Level 155 mmol/L (136-145) Potassium Level 4.4 mmol/L (3.5-5.1) Chloride Level 109 mmol/L (98-107) Carbon Dioxide Level > 45 mmol/L (21-32) Anion Gap (6-14) Blood Urea Nitrogen 24 mg/dL (7-20) Creatinine 0.7 mg/dL (0.6-1.0) Estimated GFR (Cockcroft-Gault) 85.4 Glucose Level 265 mg/dL (70-99) Calcium Level 9.1 mg/dL (8.5-10.1) Test 11/30/18 11:30 Glucose (Fingerstick) 228 mg/dL (70-99) Images Images CT scan of the head without contrast 11/24/2018 There is mild generalized parenchymal atrophy. Areas of decreased attenuation are seen within the periventricular and subcortical white matter of both cerebral hemispheres consistent with areas of small vessel ischemic disease. No acute parenchymal abnormality is seen. No extra-axial fluid collection is noted. No skull fracture is seen. Impression: No acute intracranial abnormality is seen. Assessment/Plan Assessment/Plan Impression: Metabolic encephalopathy due to sedation, COPD, I find no focal findings to suggest stroke, seizure, or intracranial mass lesion. Baseline intellectual disability Recommendations: Lorazepam has been discontinued, we will see how she wakes up from that. Hold off on further studies unless she is no better in the next 2 or 3 days. Discussed with patient's sister who is agreeable with this plan. Thank you for letting me help with the patient's care. TOD KAISER MD Nov 30, 2018 12:49
--- NOTE | 2018-11-30 15:06 | RAD ---
Examination: PORTABLE CHEST 1V History: Pleural effusions Comparison/Correlation: 11/28/2018 AP view of the chest Findings: Portable upright frontal view chest was obtained. Heart size is within normal limits. No pneumothorax. Retrocardiac left basilar consolidation is noted. Very small pleural effusions appear to be present. No new infiltrate. Impression: No significant change in pleural effusions considering differences in patient positioning and technique. Electronically signed by: Niko Gonzalez MD (11/30/2018 3:03 PM) [facility]
[2018-11-30] MEDS: cefTRIAXone IV Push 1 GM VIAL. IVP SCH (15:21)
[2018-11-30] MEDS: METOPROLOL TARTRATE 5 MG/5 ML VIAL. IVP SCH (16:00)
[2018-11-30] MEDS: LURASIDONE 40 MG TABLET. PO SCH (20:58)
[2018-11-30] MEDS: SIMVASTATIN 10 MG TABLET PO SCH (20:59)
[2018-11-30] MEDS: INSULIN GLARGINE SYRINGE. SQ SCH (21:42)
[2018-12-01] VITALS (7 sets, daily range): BP systolic 149–165; BP diastolic 72–97
[2018-12-01] MEDS: METOPROLOL TARTRATE 5 MG/5 ML VIAL. IVP SCH ×2 (00:25→05:57)
--- NOTE | 2018-12-01 03:40 | NUR ---
Pt. screened positive on sepsis screen. ICU nurse paged. Orders were given and are being implemented. Will continue to monitor.
[2018-12-01 04:20] LABS: BASO % 0 % (0-3); EOS % 0 % (0-3); HEMATOCRIT 38.2 % (36.0-47.0); HEMOGLOBIN 11.4 g/dL (12.0-15.5); LYMPH # 0.5 x10^3/uL (1.0-4.8); LYMPH % 4 % (24-48); MEAN CORPUSCULAR HEMOGLOBIN 25 pg (25-35); MEAN CORPUSCULAR HGB CONC 30 g/dL (31-37); MEAN CORPUSCULAR VOLUME 82 fL (79-100); MONO # 0.7 x10^3/uL (0.0-1.1); MONO % 7 % (0-9); NEUT # 9.5 x10^3/uL (1.8-7.7); NEUT % 89 % (31-73); PLATELET COUNT 232 x10^3/uL (140-400); RED BLOOD COUNT 4.66 x10^6/uL (3.50-5.40); RED CELL DISTRIBUTION WIDTH 16.8 % (11.5-14.5); WHITE BLOOD COUNT 10.8 x10^3/uL (4.0-11.0)
[2018-12-01 04:37] LABS: BLOOD UREA NITROGEN 18 mg/dL (7-20); CALCIUM 8.8 mg/dL (8.5-10.1); CHLORIDE 110 mmol/L (98-107); CREATININE 0.6 mg/dL (0.6-1.0); GLUCOSE 170 mg/dL (70-99); POTASSIUM 3.6 mmol/L (3.5-5.1); SODIUM 156 mmol/L (136-145)
[2018-12-01 04:38] LABS: CARBON DIOXIDE > 45 mmol/L (21-32)
[2018-12-01] MEDS: methylPREDNISolone SOD SUCC PF 40 MG/ML VIAL. IV SCH ×3 (05:55→20:30)
[2018-12-01] MEDS: IPRATRPIUM/ALBUTEROL 0.5/2.5MG 3 ML NEBU. NEB SCH ×4 (06:55→18:18)
[2018-12-01] MEDS: INSULIN LISPRO 300 UNITS/3 ML VIAL. SQ SCH ×7 (07:30→20:28)
[2018-12-01] MEDS: FERROUS SULFATE 325 MG TABLET. PO SCH ×2 (08:00→17:00)
[2018-12-01] MEDS: metFORMIN 500 MG TABLET PO SCH ×2 (08:00→17:00)
[2018-12-01] MEDS: GABAPENTIN 300 MG CAPSULE. PO SCH ×2 (09:00→19:33)
[2018-12-01] MEDS: FUROSEMIDE 20 MG TABLET PO SCH (09:00)
[2018-12-01] MEDS: METOPROLOL SUCC 24HR ER 25 MG TAB.ER.24H. PO SCH (09:00)
[2018-12-01] MEDS: LACTOBACILLUS RHAMNOSUS GG 1 CAPSULE. PO SCH ×2 (09:00→19:32)
[2018-12-01] MEDS: POLYETHYLENE GLYCOL 3350 17 GM PACKET. PO SCH (09:00)
[2018-12-01] MEDS: ACETAMINOPHEN 325 MG SUPP.RECT. PR PRN (09:11)
--- NOTE | 2018-12-01 09:15 | PDOC ---
PULMONARY PROGRESS NOTES Subjective Off BIPAP, on venti-mask 50% More awake today Sitter at bedside Vitals Vital Signs Date Time Temp Pulse Resp B/P (MAP) Pulse Ox O2 Delivery O2 Flow Rate FiO2 12/01/18 07:00 99.4 113 27 165/84 (111) 93 99.4 12/01/18 06:56 Venturi Mask 15.0 Lungs: Clear (bilateral upper lobes), Other (Dimished in bases ) Cardiovascular: S1 Abdomen: Soft, Non-tender Neuro Exam: Alert Extremities: Other (1+edema) Skin: Warm, Dry Labs Laboratory Tests Test 11/29/18 11:33 11/29/18 16:54 11/29/18 21:31 11/30/18 03:30 Glucose (Fingerstick) 285 mg/dL (70-99) 183 mg/dL (70-99) 158 mg/dL (70-99) White Blood Count 12.4 x10^3/uL (4.0-11.0) Red Blood Count 4.91 x10^6/uL (3.50-5.40) Hemoglobin 11.8 g/dL (12.0-15.5) Hematocrit 40.4 % (36.0-47.0) Mean Corpuscular Volume 82 fL (79-100) Mean Corpuscular Hemoglobin 24 pg (25-35) Mean Corpuscular Hemoglobin Concent 29 g/dL (31-37) Red Cell Distribution Width 16.9 % (11.5-14.5) Platelet Count 338 x10^3/uL (140-400) Neutrophils (%) (Auto) 88 % (31-73) Lymphocytes (%) (Auto) 3 % (24-48) Monocytes (%) (Auto) 8 % (0-9) Eosinophils (%) (Auto) 0 % (0-3) Basophils (%) (Auto) 0 % (0-3) Neutrophils # (Auto) 11.0 x10^3/uL (1.8-7.7) Lymphocytes # (Auto) 0.4 x10^3/uL (1.0-4.8) Monocytes # (Auto) 1.0 x10^3/uL (0.0-1.1) Eosinophils # (Auto) 0.0 x10^3/uL (0.0-0.7) Basophils # (Auto) 0.0 x10^3/uL (0.0-0.2) Sodium Level 155 mmol/L (136-145) Potassium Level 4.4 mmol/L (3.5-5.1) Chloride Level 109 mmol/L (98-107) Carbon Dioxide Level > 45 mmol/L (21-32) Anion Gap (6-14) Blood Urea Nitrogen 24 mg/dL (7-20) Creatinine 0.7 mg/dL (0.6-1.0) Estimated GFR (Cockcroft-Gault) 85.4 Glucose Level 265 mg/dL (70-99) Calcium Level 9.1 mg/dL (8.5-10.1) Test 11/30/18 07:06 11/30/18 11:30 11/30/18 16:15 11/30/18 21:20 Glucose (Fingerstick) 267 mg/dL (70-99) 228 mg/dL (70-99) 150 mg/dL (70-99) 171 mg/dL (70-99) Test 12/01/18 03:45 12/01/18 06:20 White Blood Count 10.8 x10^3/uL (4.0-11.0) Red Blood Count 4.66 x10^6/uL (3.50-5.40) Hemoglobin 11.4 g/dL (12.0-15.5) Hematocrit 38.2 % (36.0-47.0) Mean Corpuscular Volume 82 fL (79-100) Mean Corpuscular Hemoglobin 25 pg (25-35) Mean Corpuscular Hemoglobin Concent 30 g/dL (31-37) Red Cell Distribution Width 16.8 % (11.5-14.5) Platelet Count 232 x10^3/uL (140-400) Neutrophils (%) (Auto) 89 % (31-73) Lymphocytes (%) (Auto) 4 % (24-48) Monocytes (%) (Auto) 7 % (0-9) Eosinophils (%) (Auto) 0 % (0-3) Basophils (%) (Auto) 0 % (0-3) Neutrophils # (Auto) 9.5 x10^3/uL (1.8-7.7) Lymphocytes # (Auto) 0.5 x10^3/uL (1.0-4.8) Monocytes # (Auto) 0.7 x10^3/uL (0.0-1.1) Eosinophils # (Auto) 0.0 x10^3/uL (0.0-0.7) Basophils # (Auto) 0.0 x10^3/uL (0.0-0.2) Sodium Level 156 mmol/L (136-145) Potassium Level 3.6 mmol/L (3.5-5.1) Chloride Level 110 mmol/L (98-107) Carbon Dioxide Level > 45 mmol/L (21-32) Anion Gap (6-14) Blood Urea Nitrogen 18 mg/dL (7-20) Creatinine 0.6 mg/dL (0.6-1.0) Estimated GFR (Cockcroft-Gault) 102.0 Glucose Level 170 mg/dL (70-99) Calcium Level 8.8 mg/dL (8.5-10.1) Lactic Acid Level 0.9 mmol/L (0.4-2.0) Laboratory Tests Test 11/30/18 11:30 11/30/18 16:15 11/30/18 21:20 12/01/18 03:45 Glucose (Fingerstick) 228 mg/dL (70-99) 150 mg/dL (70-99) 171 mg/dL (70-99) White Blood Count 10.8 x10^3/uL (4.0-11.0) Red Blood Count 4.66 x10^6/uL (3.50-5.40) Hemoglobin 11.4 g/dL (12.0-15.5) Hematocrit 38.2 % (36.0-47.0) Mean Corpuscular Volume 82 fL (79-100) Mean Corpuscular Hemoglobin 25 pg (25-35) Mean Corpuscular Hemoglobin Concent 30 g/dL (31-37) Red Cell Distribution Width 16.8 % (11.5-14.5) Platelet Count 232 x10^3/uL (140-400) Neutrophils (%) (Auto) 89 % (31-73) Lymphocytes (%) (Auto) 4 % (24-48) Monocytes (%) (Auto) 7 % (0-9) Eosinophils (%) (Auto) 0 % (0-3) Basophils (%) (Auto) 0 % (0-3) Neutrophils # (Auto) 9.5 x10^3/uL (1.8-7.7) Lymphocytes # (Auto) 0.5 x10^3/uL (1.0-4.8) Monocytes # (Auto) 0.7 x10^3/uL (0.0-1.1) Eosinophils # (Auto) 0.0 x10^3/uL (0.0-0.7) Basophils # (Auto) 0.0 x10^3/uL (0.0-0.2) Sodium Level 156 mmol/L (136-145) Potassium Level 3.6 mmol/L (3.5-5.1) Chloride Level 110 mmol/L (98-107) Carbon Dioxide Level > 45 mmol/L (21-32) Anion Gap (6-14) Blood Urea Nitrogen 18 mg/dL (7-20) Creatinine 0.6 mg/dL (0.6-1.0) Estimated GFR (Cockcroft-Gault) 102.0 Glucose Level 170 mg/dL (70-99) Calcium Level 8.8 mg/dL (8.5-10.1) Test 12/01/18 06:20 Lactic Acid Level 0.9 mmol/L (0.4-2.0) Medications Active Scripts Medications Dose Route/Sig Max Daily Dose Days Date Category Lasix (Furosemide) 20 Mg Tablet 20 Mg PO DAILY 11/24/18 Reported Metoprolol Succinate ( Xl ) (Metoprolol Succinate) 25 Mg Tab.er.24h 50 Mg PO DAILY 11/24/18 Reported Acetaminophen 650 Mg/20.3 Ml Solution 650 Mg FT PRN PRN 11/24/18 Reported Miralax (Polyethylene Glycol 3350) 17 Gm Powd.pack 1 Pkt PO DAILY 11/24/18 Reported Ferrous Sulfate 325 Mg Tablet 325 Mg PO BID 11/24/18 Reported Seroquel (Quetiapine Fumarate) 200 Mg Tablet 200 Mg PO HS 11/24/18 Reported Melatonin 3 Mg Tablet 3 Mg PO HS 11/24/18 Reported Proair Hfa Inhaler (Albuterol Sulfate) 8.5 Gm Hfa.aer.ad 1 Puff INH PRN Q6HRS PRN 10/13/18 Rx Proair Hfa Inhaler (Albuterol Sulfate) 8.5 Gm Hfa.aer.ad 2 Puff INH PRN Q6HRS PRN 03/03/18 Rx Colace 2-in-1 Tablet (Sennosides/Docusate Sodium) 1 Each Tablet 1 Each PO BID PRN 01/02/18 Rx Glucophage (Metformin Hcl) 500 Mg Tablet 1,000 Mg PO BIDWMEALS 05/20/15 Rx Simvastatin 10 Mg Tablet 10 Mg PO HS 10/13/14 Reported Symbicort 160-4.5 Mcg Inhaler (Budesonide/Formoterol Fumarate) 10.2 Gm Hfa.aer.ad 2 Puff IH BID 08/13/14 Reported Albuterol Sulfate Hfa Inhaler (Albuterol Sulfate) 8.5 Gm Hfa.aer.ad 2 Puff INH Q4HRS 08/13/14 Reported Impression . 1. Acute on chronic hypoxemic hypercarbic respiratory failure, multifactorial: acute exacerbation of chronic obstructive pulmonary disease, acute bronchitis , acute diastolic congestive heart failure 2. Acute exacerbation of chronic obstructive pulmonary disease. 3. Acute bronchitis 4. Acute diastolic congestive heart failure. 5. Mental retardation. 6. Hypertension. 7. Diabetes mellitus. 8. New onset atrial fibrillation with rapid ventricular response, now in sinus rhythm. 9. encephalopathy, Plan . 1. BIPAP PRN now on venti-mask 50%, supplemental oxygen to keep sats above 92% 2. Continue steroids.taper dose 3. Continue antibiotic. 4. Lasix and anticoagulation per cardiology 5. Elevate head of bed. 6. Bronchodilators. 7. DNR/DNI. 8. discussed with hospice case manager Monday CLEM SCHAEFER MD Dec 01, 2018 09:15
[2018-12-01] MEDS ORDERED: cloNIDine TTS-1 1 PATCH PATCH.TDWK TD SCH (10:00)
--- NOTE | 2018-12-01 11:20 | PDOC ---
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 sound slike prev there was talking and eating NOw has been NPO bec of lethargy, NA 154 on half normal Other notes mention family not ready for hospice Needing BIPAP freq, non on venturi neuro note reviewed, she also has cognitive intellectual challenges PLAN: I talked to her about hospice again - no response Keep sitter DNR Other supprotive meds BIPAP prn per pulmo CHange to procalamine to address persistent hypernat (procalamine is very hypotonic) - labs tmr She is on solu medrol started 2 days ago Vitals Vitals Vital Signs Date Time Temp Pulse Resp B/P (MAP) Pulse Ox O2 Delivery O2 Flow Rate FiO2 12/01/18 11:06 93 Venturi Mask 15.0 12/01/18 07:00 99.4 113 27 165/84 (111) 99.4 Physical Exam Physical Exam Eyes: PERRLA, EOMI, conjunctiva normal, no discharge. [] Neck: Normal range of motion, no tenderness, supple, no stridor. [] Cardiovascular: Sinus tachycardia, regular rhythm, no murmur [] Lungs & Thorax: Bilateral breath sounds equal but wheezing. ] Abdomen: Bowel sounds normal, soft, no tenderness, no masses, no pulsatile masses. [] Skin: Warm, dry, no erythema, no rash. [] Back: No tenderness, no CVA tenderness. [] Extremities: No tenderness, no cyanosis, no clubbing, General: No acute distress Heart: Regular rate, Normal S1 Lungs: Clear (bilateral upper lobes), Other (Dimished in bases ) Abdomen: Normal bowel sounds, Soft, No tenderness Extremities: No clubbing, No cyanosis, No tenderness/swelling Skin: No rashes, No significant lesion Labs LABS Laboratory Tests Test 11/30/18 11:30 11/30/18 16:15 11/30/18 21:20 12/01/18 03:45 Glucose (Fingerstick) 228 mg/dL (70-99) 150 mg/dL (70-99) 171 mg/dL (70-99) White Blood Count 10.8 x10^3/uL (4.0-11.0) Red Blood Count 4.66 x10^6/uL (3.50-5.40) Hemoglobin 11.4 g/dL (12.0-15.5) Hematocrit 38.2 % (36.0-47.0) Mean Corpuscular Volume 82 fL (79-100) Mean Corpuscular Hemoglobin 25 pg (25-35) Mean Corpuscular Hemoglobin Concent 30 g/dL (31-37) Red Cell Distribution Width 16.8 % (11.5-14.5) Platelet Count 232 x10^3/uL (140-400) Neutrophils (%) (Auto) 89 % (31-73) Lymphocytes (%) (Auto) 4 % (24-48) Monocytes (%) (Auto) 7 % (0-9) Eosinophils (%) (Auto) 0 % (0-3) Basophils (%) (Auto) 0 % (0-3) Neutrophils # (Auto) 9.5 x10^3/uL (1.8-7.7) Lymphocytes # (Auto) 0.5 x10^3/uL (1.0-4.8) Monocytes # (Auto) 0.7 x10^3/uL (0.0-1.1) Eosinophils # (Auto) 0.0 x10^3/uL (0.0-0.7) Basophils # (Auto) 0.0 x10^3/uL (0.0-0.2) Sodium Level 156 mmol/L (136-145) Potassium Level 3.6 mmol/L (3.5-5.1) Chloride Level 110 mmol/L (98-107) Carbon Dioxide Level > 45 mmol/L (21-32) Anion Gap (6-14) Blood Urea Nitrogen 18 mg/dL (7-20) Creatinine 0.6 mg/dL (0.6-1.0) Estimated GFR (Cockcroft-Gault) 102.0 Glucose Level 170 mg/dL (70-99) Calcium Level 8.8 mg/dL (8.5-10.1) Test 12/01/18 06:20 Lactic Acid Level 0.9 mmol/L (0.4-2.0) Review of Systems Review of Systems non verbal Assessment and Plan Assessmemt and Plan Problems Medical Problems: (1) Acute bronchitis Status: Acute (2) Acute diastolic CHF (congestive heart failure) Status: Acute (3) Altered mental status Status: Acute (4) Atrial fibrillation with RVR Status: Acute (5) COPD (chronic obstructive pulmonary disease) Status: Chronic (6) COPD exacerbation Status: Acute (7) hypercapnia Status: Acute (8) GERD (gastroesophageal reflux disease) Status: Chronic (9) HLD (hyperlipidemia) Status: Chronic (10) HTN (hypertension) Status: Chronic (11) Hypercapnia Status: Acute (12) Hypercapnic respiratory failure Status: Acute (13) Uncontrolled diabetes mellitus Status: Chronic (14) UTI (urinary tract infection) Status: Acute Comment Review of Relevant I have reviewed the following items ana (where applicable) has been applied. Labs Laboratory Tests Test 11/29/18 11:33 11/29/18 16:54 11/29/18 21:31 11/30/18 03:30 Glucose (Fingerstick) 285 mg/dL (70-99) 183 mg/dL (70-99) 158 mg/dL (70-99) White Blood Count 12.4 x10^3/uL (4.0-11.0) Red Blood Count 4.91 x10^6/uL (3.50-5.40) Hemoglobin 11.8 g/dL (12.0-15.5) Hematocrit 40.4 % (36.0-47.0) Mean Corpuscular Volume 82 fL (79-100) Mean Corpuscular Hemoglobin 24 pg (25-35) Mean Corpuscular Hemoglobin Concent 29 g/dL (31-37) Red Cell Distribution Width 16.9 % (11.5-14.5) Platelet Count 338 x10^3/uL (140-400) Neutrophils (%) (Auto) 88 % (31-73) Lymphocytes (%) (Auto) 3 % (24-48) Monocytes (%) (Auto) 8 % (0-9) Eosinophils (%) (Auto) 0 % (0-3) Basophils (%) (Auto) 0 % (0-3) Neutrophils # (Auto) 11.0 x10^3/uL (1.8-7.7) Lymphocytes # (Auto) 0.4 x10^3/uL (1.0-4.8) Monocytes # (Auto) 1.0 x10^3/uL (0.0-1.1) Eosinophils # (Auto) 0.0 x10^3/uL (0.0-0.7) Basophils # (Auto) 0.0 x10^3/uL (0.0-0.2) Sodium Level 155 mmol/L (136-145) Potassium Level 4.4 mmol/L (3.5-5.1) Chloride Level 109 mmol/L (98-107) Carbon Dioxide Level > 45 mmol/L (21-32) Anion Gap (6-14) Blood Urea Nitrogen 24 mg/dL (7-20) Creatinine 0.7 mg/dL (0.6-1.0) Estimated GFR (Cockcroft-Gault) 85.4 Glucose Level 265 mg/dL (70-99) Calcium Level 9.1 mg/dL (8.5-10.1) Test 11/30/18 07:06 11/30/18 11:30 11/30/18 16:15 11/30/18 21:20 Glucose (Fingerstick) 267 mg/dL (70-99) 228 mg/dL (70-99) 150 mg/dL (70-99) 171 mg/dL (70-99) Test 12/01/18 03:45 12/01/18 06:20 White Blood Count 10.8 x10^3/uL (4.0-11.0) Red Blood Count 4.66 x10^6/uL (3.50-5.40) Hemoglobin 11.4 g/dL (12.0-15.5) Hematocrit 38.2 % (36.0-47.0) Mean Corpuscular Volume 82 fL (79-100) Mean Corpuscular Hemoglobin 25 pg (25-35) Mean Corpuscular Hemoglobin Concent 30 g/dL (31-37) Red Cell Distribution Width 16.8 % (11.5-14.5) Platelet Count 232 x10^3/uL (140-400) Neutrophils (%) (Auto) 89 % (31-73) Lymphocytes (%) (Auto) 4 % (24-48) Monocytes (%) (Auto) 7 % (0-9) Eosinophils (%) (Auto) 0 % (0-3) Basophils (%) (Auto) 0 % (0-3) Neutrophils # (Auto) 9.5 x10^3/uL (1.8-7.7) Lymphocytes # (Auto) 0.5 x10^3/uL (1.0-4.8) Monocytes # (Auto) 0.7 x10^3/uL (0.0-1.1) Eosinophils # (Auto) 0.0 x10^3/uL (0.0-0.7) Basophils # (Auto) 0.0 x10^3/uL (0.0-0.2) Sodium Level 156 mmol/L (136-145) Potassium Level 3.6 mmol/L (3.5-5.1) Chloride Level 110 mmol/L (98-107) Carbon Dioxide Level > 45 mmol/L (21-32) Anion Gap (6-14) Blood Urea Nitrogen 18 mg/dL (7-20) Creatinine 0.6 mg/dL (0.6-1.0) Estimated GFR (Cockcroft-Gault) 102.0 Glucose Level 170 mg/dL (70-99) Calcium Level 8.8 mg/dL (8.5-10.1) Lactic Acid Level 0.9 mmol/L (0.4-2.0) Laboratory Tests Test 11/30/18 11:30 11/30/18 16:15 11/30/18 21:20 12/01/18 03:45 Glucose (Fingerstick) 228 mg/dL (70-99) 150 mg/dL (70-99) 171 mg/dL (70-99) White Blood Count 10.8 x10^3/uL (4.0-11.0) Red Blood Count 4.66 x10^6/uL (3.50-5.40) Hemoglobin 11.4 g/dL (12.0-15.5) Hematocrit 38.2 % (36.0-47.0) Mean Corpuscular Volume 82 fL (79-100) Mean Corpuscular Hemoglobin 25 pg (25-35) Mean Corpuscular Hemoglobin Concent 30 g/dL (31-37) Red Cell Distribution Width 16.8 % (11.5-14.5) Platelet Count 232 x10^3/uL (140-400) Neutrophils (%) (Auto) 89 % (31-73) Lymphocytes (%) (Auto) 4 % (24-48) Monocytes (%) (Auto) 7 % (0-9) Eosinophils (%) (Auto) 0 % (0-3) Basophils (%) (Auto) 0 % (0-3) Neutrophils # (Auto) 9.5 x10^3/uL (1.8-7.7) Lymphocytes # (Auto) 0.5 x10^3/uL (1.0-4.8) Monocytes # (Auto) 0.7 x10^3/uL (0.0-1.1) Eosinophils # (Auto) 0.0 x10^3/uL (0.0-0.7) Basophils # (Auto) 0.0 x10^3/uL (0.0-0.2) Sodium Level 156 mmol/L (136-145) Potassium Level 3.6 mmol/L (3.5-5.1) Chloride Level 110 mmol/L (98-107) Carbon Dioxide Level > 45 mmol/L (21-32) Anion Gap (6-14) Blood Urea Nitrogen 18 mg/dL (7-20) Creatinine 0.6 mg/dL (0.6-1.0) Estimated GFR (Cockcroft-Gault) 102.0 Glucose Level 170 mg/dL (70-99) Calcium Level 8.8 mg/dL (8.5-10.1) Test 12/01/18 06:20 Lactic Acid Level 0.9 mmol/L (0.4-2.0) Microbiology 11/24/18 Urine Culture - Final, Complete 11/24/18 Urine Culture Result 1 (MELO) - Final, Complete Medications Current Medications Albuterol/ Ipratropium (Duoneb) 3 ml 1X ONCE NEB Last administered on 11/24/18at 12:22; Start 11/24/18 at 11:15; Stop 11/24/18 at 11:17; Status DC Ceftriaxone Sodium (Rocephin) 1 gm 1X ONCE IVP Last administered on 11/24/18at 13:00; Start 11/24/18 at 12:45; Stop 11/24/18 at 12:46; Status DC Albuterol/ Ipratropium (Duoneb) 3 ml 1X ONCE NEB Last administered on 11/24/18at 14:43; Start 11/24/18 at 12:45; Stop 11/24/18 at 12:46; Status DC Ondansetron HCl (Zofran) 4 mg PRN Q8HRS PRN IV NAUSEA/VOMITING; Start 11/24/18 at 12:45; Stop 11/25/18 at 12:44; Status DC Sodium Chloride 1,000 ml @ 100 mls/hr Q10H IV Last administered on 11/24/18at 22:39; Start 11/24/18 at 12:36; Stop 11/25/18 at 12:35; Status DC Albuterol/ Ipratropium (Duoneb) 3 ml RTQID NEB Last administered on 11/25/18at 15:27; Start 11/24/18 at 16:00; Stop 11/25/18 at 15:59; Status DC Lorazepam (Ativan Inj) 0.5 mg 1X ONCE IV Last administered on 11/24/18at 17:03; Start 11/24/18 at 16:30; Stop 11/24/18 at 16:31; Status DC Acetaminophen (Tylenol) 650 mg PRN Q6HRS PRN PO PAIN; Start 11/24/18 at 17:30 Ferrous Sulfate (Feosol) 325 mg BIDWMEALS PO ; Start 11/24/18 at 17:30 Furosemide (Lasix) 20 mg DAILY PO ; Start 11/25/18 at 09:00 Gabapentin (Neurontin) 300 mg BID PO ; Start 11/24/18 at 21:00 Insulin Human Lispro (HumaLOG) 8 units TIDWMEALS SQ Last administered on 11/27/18at 13:10; Start 11/25/18 at 08:00; Stop 11/27/18 at 13:58; Status DC Metformin HCl (Glucophage) 1,000 mg BIDWMEALS PO ; Start 11/24/18 at 17:30 Metoprolol Succinate (Toprol Xl) 50 mg DAILY PO ; Start 11/25/18 at 09:00 Polyethylene Glycol (miraLAX PACKET) 17 gm DAILY PO ; Start 11/25/18 at 09:00 Senna/Docusate Sodium (Senna Plus) 1 tab PRN BID PRN PO CONSTIPATION; Start 11/24/18 at 17:30 Simvastatin (Zocor) 10 mg HS PO ; Start 11/24/18 at 21:00 Non-Formulary Medication (Albuterol Sulfate (Albuterol Sulfate Hfa Inhaler)) 2 puff Q4HRS INH ; Start 11/24/18 at 20:00; Status UNV Insulin Glargine (Lantus Syringe) 25 unit QHS SQ Last administered on 11/25/18at 20:46; Start 11/24/18 at 21:00; Stop 11/25/18 at 22:00; Status DC Non-Formulary Medication (Lurasidone Hcl (Latuda)) 60 mg HS PO ; Start 11/24/18 at 21:00; Stop 11/25/18 at 11:26; Status DC Diltiazem HCl (Cardizem Iv Push) 10 mg 1X ONCE IVP Last administered on 11/24/18at 18:49; Start 11/24/18 at 18:30; Stop 11/24/18 at 19:08; Status DC Diltiazem HCl 125 mg/Dextrose 125 ml @ 5 mls/hr CONT PRN IV . Last administered on 11/29/18at 19:47; Start 11/24/18 at 18:30; Stop 11/30/18 at 14:18; Status DC Methylprednisolone Sodium Succinate (SOLU-Medrol 40MG VIAL) 80 mg Q8HRS IV Last administered on 11/29/18at 05:29; Start 11/25/18 at 06:00; Stop 11/29/18 at 10:48; Status DC Methylprednisolone Sodium Succinate (SOLU-Medrol 40MG VIAL) 80 mg 1X ONCE IV Last administered on 11/24/18at 23:09; Start 11/24/18 at 23:00; Stop 11/24/18 at 23:01; Status DC Lorazepam (Ativan Inj) 0.5 mg PRN Q6HRS PRN IV ANXIETY / AGITATION Last administered on 11/26/18at 15:48; Start 11/25/18 at 02:45; Stop 11/26/18 at 19:33; Status DC Furosemide (Lasix) 20 mg 1X ONCE IVP Last administered on 11/25/18at 08:40; Start 11/25/18 at 07:30; Stop 11/25/18 at 07:31; Status DC Ceftriaxone Sodium (Rocephin) 1 gm Q24H IVP Last administered on 11/30/18at 15:21; Start 11/25/18 at 13:00 Lactobacillus Rhamnosus (Culturelle) 1 cap BID PO ; Start 11/25/18 at 09:00 Lurasidone HCl (Latuda) 60 mg QHS PO ; Start 11/25/18 at 21:00 Insulin Glargine (Lantus Syringe) 25 unit QHS SQ Last administered on 11/30/18at 21:43; Start 11/26/18 at 21:00 Insulin Human Lispro (HumaLOG) 0-7 UNITS TIDWMEALS SQ Last administered on 11/27/18at 13:10; Start 11/25/18 at 17:00; Stop 11/27/18 at 13:58; Status DC Dextrose (Dextrose 50%-Water Syringe) 12.5 gm PRN Q15MIN PRN IV SEE COMMENTS; Start 11/25/18 at 17:00; Stop 11/27/18 at 14:12; Status DC Dextrose 250 ml PRN Q15MIN PRN IV SEE COMMENTS; Start 11/25/18 at 17:00 Albuterol/ Ipratropium (Duoneb) 3 ml RTQID NEB Last administered on 12/01/18at 11:04; Start 11/25/18 at 20:00 Aspirin (Aspirin Rectal Supp) 300 mg 1X ONCE VT Last administered on 11/26/18at 10:36; Start 11/26/18 at 09:00; Stop 11/26/18 at 09:01; Status DC Aspirin (Ecotrin) 81 mg DAILYWBKFT PO ; Start 11/27/18 at 08:00; Stop 11/27/18 at 10:00; Status DC Magnesium Sulfate/ Dextrose 100 ml @ 100 mls/hr 1X ONCE IV Last administered on 11/26/18at 16:04; Start 11/26/18 at 15:15; Stop 11/26/18 at 16:14; Status DC Lorazepam (Ativan Inj) 2 mg PRN Q4HRS PRN IV ANXIETY / AGITATION Last administered on 11/28/18at 13:37; Start 11/26/18 at 19:30; Stop 11/29/18 at 10:48; Status DC Haloperidol Lactate (Haldol Inj) 5 mg 1X ONCE IVP Last administered on 11/26/18a t 19:55; Start 11/26/18 at 19:30; Stop 11/26/18 at 19:38; Status DC Aspirin (Aspirin Rectal Supp) 150 mg DAILY VT Last administered on 11/27/18at 13:10; Start 11/27/18 at 10:30; Stop 11/28/18 at 08:03; Status DC Amino Acids/ Glycerin/ Electrolytes 1,000 ml @ 50 mls/hr Q20H IV Last administered on 11/27/18at 13:10; Start 11/27/18 at 12:15; Stop 11/28/18 at 14:00; Status DC Digoxin (Lanoxin) 500 mcg 1X ONCE IV Last administered on 11/27/18at 13:22; Start 11/27/18 at 13:00; Stop 11/27/18 at 13:07; Status DC Insulin Human Lispro (HumaLOG) 12 units TIDWMEALS SQ Last administered on 11/30/18at 18:21; Start 11/27/18 at 17:00 Insulin Human Lispro (HumaLOG) 0-7 UNITS TIDWMEALS SQ ; Start 11/27/18 at 17:00; Stop 11/27/18 at 16:34; Status DC Dextrose (Dextrose 50%-Water Syringe) 12.5 gm PRN Q15MIN PRN IV SEE COMMENTS; Start 11/27/18 at 14:00 Dextrose 250 ml PRN Q15MIN PRN IV SEE COMMENTS; Start 11/27/18 at 14:00 Metoprolol Tartrate (Lopressor Vial) 5 mg PRN Q5MIN PRN IVP TACHYCARDIA Last administered on 11/30/18at 07:52; Start 11/27/18 at 16:00 Enoxaparin Sodium (Lovenox Per Pharmacy Treatment Dosing) 1 each PRN DAILY PRN MC SEE COMMENTS; Start 11/27/18 at 16:00 Enoxaparin Sodium (Lovenox 100mg Syringe) 100 mg Q12HR SQ Last administered on 12/01/18at 09:11; Start 11/27/18 at 16:30 Insulin Human Lispro (HumaLOG) 0-9 UNITS TIDWMEALS SQ Last administered on 11/28/18at 12:19; Start 11/27/18 at 17:00; Stop 11/28/18 at 16:38; Status DC Acetaminophen (Tylenol Supp) 325 mg PRN Q6HRS PRN VT MILD PAIN / TEMP Last administered on 12/01/18at 09:11; Start 11/27/18 at 16:45 Sodium Polystyrene Sulfonate (Kayexalate) 30 gm 1X ONCE RC ; Start 11/28/18 at 12:00; Stop 11/28/18 at 12:01; Status DC Sodium Chloride 1,000 ml @ 60 mls/hr [id number] IV Last administered on 11/30/18at 21:23; Start 11/28/18 at 14:00; Stop 12/01/18 at 09:29; Status DC Insulin Human Lispro (HumaLOG) 0-9 UNITS QIDACHS SQ Last administered on 11/30/18at 13:07; Start 11/28/18 at 16:45 Ceftriaxone Sodium (Rocephin) 1 gm Q24H IVP ; Start 11/29/18 at 09:00; Status UNV Digoxin (Lanoxin) 250 mcg 1X ONCE IV Last administered on 11/29/18at 08:46; Start 11/29/18 at 08:30; Stop 11/29/18 at 08:31; Status DC Lorazepam (Ativan Inj) 0.5 mg PRN Q4HRS PRN IV ANXIETY / AGITATION Last administered on 11/30/18at 02:44; Start 11/29/18 at 11:00; Stop 11/30/18 at 11:45; Status DC Methylprednisolone Sodium Succinate (SOLU-Medrol 40MG VIAL) 40 mg Q8HRS IV Last administered on 12/01/18at 05:57; Start 11/29/18 at 11:00 Metoprolol Tartrate (Lopressor Vial) 10 mg Q6HRS IVP Last administered on 12/01/18at 05:57; Start 11/30/18 at 16:00 Lorazepam (Ativan Inj) 1 mg PRN Q6HRS PRN IV ANXIETY / AGITATION Last adminis tered on 12/01/18at 01:50; Start 11/30/18 at 23:45; Stop 12/01/18 at 02:31; Status DC Clonidine HCl (Catapres Tts-1) 1 patch WEEKLY TD ; Start 12/01/18 at 10:00 Amino Acids/ Glycerin/ Electrolytes 1,000 ml @ 60 mls/hr [id number] IV ; Start 12/01/18 at 10:00 Active Scripts Active Proair Hfa Inhaler (Albuterol Sulfate) 8.5 Gm Hfa.aer.ad 1 Puff INH PRN Q6HRS PRN Proair Hfa Inhaler (Albuterol Sulfate) 8.5 Gm Hfa.aer.ad 2 Puff INH PRN Q6HRS PRN Colace 2-in-1 Tablet (Sennosides/Docusate Sodium) 1 Each Tablet 1 Each PO BID PRN Glucophage (Metformin Hcl) 500 Mg Tablet 1,000 Mg PO BIDWMEALS Reported Lasix (Furosemide) 20 Mg Tablet 20 Mg PO DAILY Metoprolol Succinate ( Xl ) (Metoprolol Succinate) 25 Mg Tab.er.24h 50 Mg PO DAILY Acetaminophen 650 Mg/20.3 Ml Solution 650 Mg FT PRN PRN Miralax (Polyethylene Glycol 3350) 17 Gm Powd.pack 1 Pkt PO DAILY Ferrous Sulfate 325 Mg Tablet 325 Mg PO BID Seroquel (Quetiapine Fumarate) 200 Mg Tablet 200 Mg PO HS Melatonin 3 Mg Tablet 3 Mg PO HS Simvastatin 10 Mg Tablet 10 Mg PO HS Symbicort 160-4.5 Mcg Inhaler (Budesonide/Formoterol Fumarate) 10.2 Gm Hfa.a er.ad 2 Puff IH BID Albuterol Sulfate Hfa Inhaler (Albuterol Sulfate) 8.5 Gm Hfa.aer.ad 2 Puff INH Q4HRS Vitals/I & O Vital Sign - Last 24 Hours 11/30/18 11/30/18 11/30/18 11/30/18 11:31 12:41 12:43 13:31 Temp 98.8 98.8 Pulse 118 126 129 Resp 28 28 28 B/P (MAP) 127/61 (83) 131/50 (77) 121/89 (100) Pulse Ox 89 92 92 92 O2 Delivery BiPAP/CPAP BiPAP/CPAP BiPAP/CPAP BiPAP/CPAP 11/30/18 11/30/18 11/30/18 11/30/18 14:27 15:21 16:55 19:00 Temp 99.8 98.8 99.8 98.8 Pulse 114 133 121 Resp 28 28 23 B/P (MAP) 130/67 (88) 138/57 (84) 128/52 (77) Pulse Ox 91 90 92 93 O2 Delivery BiPAP/CPAP NonRebreather Mask Venturi Mask NonRebreather Mask O2 Flow Rate 15.0 15.0 15.0 11/30/18 11/30/18 11/30/18 11/30/18 20:00 20:24 21:50 23:00 Pulse 109 Resp 27 B/P (MAP) 134/60 (84) Pulse Ox 93 94 O2 Delivery Bi-pap Venturi Mask BiPAP/CPAP BiPAP/CPAP O2 Flow Rate 15.0 15.0 12/01/18 12/01/18 12/01/18 12/01/18 00:26 01:59 02:50 03:00 Temp 98.5 98.5 Pulse 109 95 Resp 27 B/P (MAP) 134/60 154/72 (99) Pulse Ox 94 O2 Delivery BiPAP/CPAP BiPAP/CPAP BiPAP/CPAP 12/01/18 12/01/18 12/01/18 12/01/18 05:57 06:56 07:00 11:06 Temp 99.4 99.4 Pulse 155 113 Resp 27 B/P (MAP) 165/84 (111) Pulse Ox 93 93 93 O2 Delivery Venturi Mask Venturi Mask O2 Flow Rate 15.0 15.0 Intake and Output 11/30/18 11/30/18 12/01/18 14:59 22:59 06:59 Intake Total 0 ml 0 ml 0 ml Balance 0 ml 0 ml 0 ml Nutrition Consultation Dietary Evaluation: Recommendations by RD: Increase Calorie Intake, PPN/TPN Comments: REC PPN for non-oral nutrition needs while PO intake remains poor and/or as appropriate per goals of care, pt dependent on BiPAP Expected Outcomes/Goals: Nutrition support to meet >75% est needs or as appropriate per goals of care - goal ongoing Interpretation of weight loss: >7.5% in 3 months Malnutrition Findings: Food and Nutrition Intake (Sev: <50% est energy req 5days Weight Status: Obese RICKY HUGHES MD Dec 01, 2018 11:20
[2018-12-01] MEDS: AMINO AC 3%/ELECTROLYTE/GLYCER 1,000 ML IV SCH (11:25)
[2018-12-01] MEDS ORDERED: METOPROLOL TARTRATE 5 MG/5 ML VIAL. IVP PRN (11:45)
[2018-12-01] MEDS: cefTRIAXone IV Push 1 GM VIAL. IVP SCH (14:37)
[2018-12-01] MEDS: LURASIDONE 40 MG TABLET. PO SCH (19:32)
[2018-12-01] MEDS: SIMVASTATIN 10 MG TABLET PO SCH (19:33)
[2018-12-01] MEDS: INSULIN GLARGINE SYRINGE. SQ SCH (20:29)
[2018-12-02] VITALS (7 sets, daily range): BP systolic 103–159; BP diastolic 51–99
--- NOTE | 2018-12-02 00:01 | NUR ---
Pt continue to be agitated and restless all through this shift. Pt continue to take off venti-mask, continue asking for water, food, and constantly trying to get out of bed. RN continue to educate pt on POC but pt is unable to comprehend and follow directions at this time. Will continue to educate and monitor pt closely.
[2018-12-02] MEDS: AMINO AC 3%/ELECTROLYTE/GLYCER 1,000 ML IV SCH ×2 (02:45→17:24)
[2018-12-02] MEDS ORDERED: HALOPERIDOL LACTATE 5 MG/ML VIAL. IVP ONE (03:00)
--- NOTE | 2018-12-02 03:02 | NUR ---
Pt continue to be agitated and refused to leave venti-mask on. RT paged and got pt on the Bipap which pt continue to pulled and tried to removed it even with mittens on. Dr. Flores paged and order received to give one time dose of Haldol 5 mg. Medication administered. Pt finally calmed down, venti-mask place back on, and pt seem to be resting comfortably at this time. Will continue to monitor pt closely.
--- NOTE | 2018-12-02 05:23 | NUR ---
Haldol only help pt relax and sleep for about 45 mins. Pt woke up and continue to be agitated. Pt continue to yell, take off her venti-mask, and continue to fight RN. Pt is extremely restless at this time and continue to asked for water. RN continue to oral swab pt with no satisfaction from pt. Will continue to educate and monitor pt closely.
[2018-12-02] MEDS: methylPREDNISolone SOD SUCC PF 40 MG/ML VIAL. IV SCH ×3 (05:29→21:36)
[2018-12-02] MEDS: IPRATRPIUM/ALBUTEROL 0.5/2.5MG 3 ML NEBU. NEB SCH ×4 (07:55→19:49)
[2018-12-02] MEDS: metFORMIN 500 MG TABLET PO SCH ×2 (08:00→17:24)
[2018-12-02] MEDS: FERROUS SULFATE 325 MG TABLET. PO SCH ×2 (08:00→17:24)
--- NOTE | 2018-12-02 08:49 | PDOC ---
PULMONARY PROGRESS NOTES Subjective Pt. remians off BIPAP off Venti- mask.on canula PT. is awake and alert and interactive today. Out of mittens at this time. Pt. is wanting to eat and drink. sitter remains at bedside. Pt. denies any Shortness of breath or cough. Vitals Vital Signs Date Time Temp Pulse Resp B/P (MAP) Pulse Ox O2 Delivery O2 Flow Rate FiO2 12/02/18 07:57 91 Venturi Mask 15.0 12/02/18 07:00 99.3 84 22 144/99 (114) 99.3 ROS: No Chest Pain, No Increase Cough General: Alert Lungs: Other (Dimished in bases ) Cardiovascular: S1, S2 Abdomen: Soft, Non-tender Neuro Exam: Alert Extremities: Other (1+edema) Skin: Warm, Dry Labs Laboratory Tests Test 11/30/18 11:30 11/30/18 16:15 11/30/18 21:20 12/01/18 03:45 Glucose (Fingerstick) 228 mg/dL (70-99) 150 mg/dL (70-99) 171 mg/dL (70-99) White Blood Count 10.8 x10^3/uL (4.0-11.0) Red Blood Count 4.66 x10^6/uL (3.50-5.40) Hemoglobin 11.4 g/dL (12.0-15.5) Hematocrit 38.2 % (36.0-47.0) Mean Corpuscular Volume 82 fL (79-100) Mean Corpuscular Hemoglobin 25 pg (25-35) Mean Corpuscular Hemoglobin Concent 30 g/dL (31-37) Red Cell Distribution Width 16.8 % (11.5-14.5) Platelet Count 232 x10^3/uL (140-400) Neutrophils (%) (Auto) 89 % (31-73) Lymphocytes (%) (Auto) 4 % (24-48) Monocytes (%) (Auto) 7 % (0-9) Eosinophils (%) (Auto) 0 % (0-3) Basophils (%) (Auto) 0 % (0-3) Neutrophils # (Auto) 9.5 x10^3/uL (1.8-7.7) Lymphocytes # (Auto) 0.5 x10^3/uL (1.0-4.8) Monocytes # (Auto) 0.7 x10^3/uL (0.0-1.1) Eosinophils # (Auto) 0.0 x10^3/uL (0.0-0.7) Basophils # (Auto) 0.0 x10^3/uL (0.0-0.2) Sodium Level 156 mmol/L (136-145) Potassium Level 3.6 mmol/L (3.5-5.1) Chloride Level 110 mmol/L (98-107) Carbon Dioxide Level > 45 mmol/L (21-32) Anion Gap (6-14) Blood Urea Nitrogen 18 mg/dL (7-20) Creatinine 0.6 mg/dL (0.6-1.0) Estimated GFR (Cockcroft-Gault) 102.0 Glucose Level 170 mg/dL (70-99) Calcium Level 8.8 mg/dL (8.5-10.1) Test 12/01/18 06:20 12/01/18 07:27 12/01/18 11:18 12/01/18 15:44 Lactic Acid Level 0.9 mmol/L (0.4-2.0) Glucose (Fingerstick) 157 mg/dL (70-99) 180 mg/dL (70-99) 218 mg/dL (70-99) Test 12/01/18 20:25 Glucose (Fingerstick) 263 mg/dL (70-99) Laboratory Tests Test 12/01/18 11:18 12/01/18 15:44 12/01/18 20:25 Glucose (Fingerstick) 180 mg/dL (70-99) 218 mg/dL (70-99) 263 mg/dL (70-99) Medications Active Scripts Medications Dose Route/Sig Max Daily Dose Days Date Category Lasix (Furosemide) 20 Mg Tablet 20 Mg PO DAILY 11/24/18 Reported Metoprolol Succinate ( Xl ) (Metoprolol Succinate) 25 Mg Tab.er.24h 50 Mg PO DAILY 11/24/18 Reported Acetaminophen 650 Mg/20.3 Ml Solution 650 Mg FT PRN PRN 11/24/18 Reported Miralax (Polyethylene Glycol 3350) 17 Gm Powd.pack 1 Pkt PO DAILY 11/24/18 Reported Ferrous Sulfate 325 Mg Tablet 325 Mg PO BID 11/24/18 Reported Seroquel (Quetiapine Fumarate) 200 Mg Tablet 200 Mg PO HS 11/24/18 Reported Melatonin 3 Mg Tablet 3 Mg PO HS 11/24/18 Reported Proair Hfa Inhaler (Albuterol Sulfate) 8.5 Gm Hfa.aer.ad 1 Puff INH PRN Q6HRS PRN 10/13/18 Rx Proair Hfa Inhaler (Albuterol Sulfate) 8.5 Gm Hfa.aer.ad 2 Puff INH PRN Q6HRS PRN 03/03/18 Rx Colace 2-in-1 Tablet (Sennosides/Docusate Sodium) 1 Each Tablet 1 Each PO BID PRN 01/02/18 Rx Glucophage (Metformin Hcl) 500 Mg Tablet 1,000 Mg PO BIDWMEALS 05/20/15 Rx Simvastatin 10 Mg Tablet 10 Mg PO HS 10/13/14 Reported Symbicort 160-4.5 Mcg Inhaler (Budesonide/Formoterol Fumarate) 10.2 Gm Hfa.aer.ad 2 Puff IH BID 08/13/14 Reported Albuterol Sulfate Hfa Inhaler (Albuterol Sulfate) 8.5 Gm Hfa.aer.ad 2 Puff INH Q4HRS 08/13/14 Reported Impression . 1. Acute on chronic hypoxemic hypercarbic respiratory failure, multifactorial: acute exacerbation of chronic obstructive pulmonary disease, acute bronchitis , acute diastolic congestive heart failure---improving 2. Acute exacerbation of chronic obstructive pulmonary disease.---improving 3. Acute bronchitis- improved 4. Acute diastolic congestive heart failure: on 11/25/18 Ejection Fraction is 60- 65%. 5. Mental retardation---stable 6. Hypertension.---stable/ongoing 7. Diabetes mellitus.--stable/ongoing 8. New onset atrial fibrillation with rapid ventricular response, now in sinus rhythm.---resolved 9. Encephalopathy- improved Plan . 1. BIPAP PRN now on canula, supplemental oxygen to keep sats above 92% 2. Continue steroids.taper dose 3. Continue antibiotic. 4. Lasix and anticoagulation per cardiology 5. Elevate head of bed. 6. Bronchodilators. 7. ST eval? before p.o. intake vs. pleasure feed per IM 8. DNR/DNI. 9. discussed with senior telecommunications consultant Monday CLEM SCHAEFER MD Dec 02, 2018 08:49
[2018-12-02 08:51] LABS: BASO # 0.1 x10^3/uL (0.0-0.2); BASO % 0 % (0-3); EOS % 0 % (0-3); HEMATOCRIT 38.1 % (36.0-47.0); HEMOGLOBIN 11.4 g/dL (12.0-15.5); LYMPH # 0.3 x10^3/uL (1.0-4.8); LYMPH % 3 % (24-48); MEAN CORPUSCULAR HEMOGLOBIN 24 pg (25-35); MEAN CORPUSCULAR HGB CONC 30 g/dL (31-37); MEAN CORPUSCULAR VOLUME 81 fL (79-100); MONO # 1.1 x10^3/uL (0.0-1.1); MONO % 10 % (0-9); NEUT # 10.2 x10^3/uL (1.8-7.7); NEUT % 87 % (31-73); PLATELET COUNT 173 x10^3/uL (140-400); RED BLOOD COUNT 4.69 x10^6/uL (3.50-5.40); RED CELL DISTRIBUTION WIDTH 16.4 % (11.5-14.5); WHITE BLOOD COUNT 11.6 x10^3/uL (4.0-11.0)
[2018-12-02] MEDS: FUROSEMIDE 20 MG TABLET PO SCH (09:00)
[2018-12-02] MEDS: METOPROLOL SUCC 24HR ER 25 MG TAB.ER.24H. PO SCH (09:00)
[2018-12-02] MEDS: GABAPENTIN 300 MG CAPSULE. PO SCH ×2 (09:00→20:40)
[2018-12-02] MEDS: LACTOBACILLUS RHAMNOSUS GG 1 CAPSULE. PO SCH ×2 (09:00→20:40)
[2018-12-02] MEDS: POLYETHYLENE GLYCOL 3350 17 GM PACKET. PO SCH (09:00)
[2018-12-02 09:05] LABS: CALCIUM 8.6 mg/dL (8.5-10.1); CREATININE 0.6 mg/dL (0.6-1.0); POTASSIUM 3.5 mmol/L (3.5-5.1)
[2018-12-02] MEDS: INSULIN LISPRO 300 UNITS/3 ML VIAL. SQ SCH ×7 (09:55→21:34)
--- NOTE | 2018-12-02 11:36 | NUR ---
Bedside Swallow Evaluation completed. Please refer to full report for additional information. Impressions: Mild oropharyngeal dysphagia w/ possible instance of s/s aspiration w/ repetitive drinking of thin liquids. Impulsivity and decreased cognitive ability to modify behaviors during self feeding currently necessitate a modified diet of dysphagia I w/ honey thick liquids to enable pt to feed self. In between meals limited amounts of thin liquids: 1/2 cup of ice water (thin liquid) may be provided w/ supervision a few times per day. Recommendations: Dysphagia I diet w/ honey thick liquids for meals, small amounts of ice water (1/2 cup at a time)/thin liquids may be provided in between meals w/ supervision a few times per day. ST f/u for dysphagia. D/w RN-Les and kareemter; precautions posted.
--- NOTE | 2018-12-02 11:55 | PDOC ---
[facility] [facility] PROGRESS NOTE Chief Complaint Chief Complaint Altered mental status, likely med related COPD Exacerbation Severe hypercapnic resp failure, slow to improve, BIPAP Uncontrolled DM Depression GERD COPD Tobacco Abuse HX Obesity BMI 44 Mental retardation DNR History of Present Illness History of Present Illness 12/02/18 Seen and evaluated pt at bedside, resting with NAD Family member present today Pt off bipap upon entry Pt demonstrated ability to swallow pudding; RN states she successfully completed bedside swallowing earlier as well Exhibits mild confusion- says the current year is 2019 but appears oriented to self and place Vitals/I&O Vitals/I&O: Vital Signs Date Time Temp Pulse Resp B/P (MAP) Pulse Ox O2 Delivery O2 Flow Rate FiO2 12/02/18 11:00 99.9 85 22 138/66 (90) 94 Nasal Cannula 5.0 99.9 I & O 12/01/18 12/01/18 12/02/18 15:00 23:00 07:00 Intake Total 0 ml 0 ml Balance 0 ml 0 ml Physical Exam Physical Exam: Eyes: PERRLA, EOMI, conjunctiva normal, no discharge. [] Neck: Normal range of motion, no tenderness, supple, no stridor. [] Cardiovascular: Sinus tachycardia, regular rhythm, no murmur [] Lungs & Thorax: Bilateral breath sounds equal but wheezing. ] Abdomen: Bowel sounds normal, soft, no tenderness, no masses, no pulsatile masses. [] Skin: Warm, dry, no erythema, no rash. [] Back: No tenderness, no CVA tenderness. [] Extremities: No tenderness, no cyanosis, no clubbing, General: Alert, Cooperative, No acute distress Heart: Regular rate, Normal S1 Lungs: Clear (bilateral upper lobes), Other (Dimished in bases ) Abdomen: Normal bowel sounds, Soft, No tenderness Extremities: No clubbing, No cyanosis, No tenderness/swelling Skin: No rashes, No significant lesion Labs Labs: Laboratory Tests Test 12/01/18 15:44 12/01/18 20:25 12/02/18 06:30 Glucose (Fingerstick) 218 mg/dL (70-99) 263 mg/dL (70-99) White Blood Count 11.6 x10^3/uL (4.0-11.0) Red Blood Count 4.69 x10^6/uL (3.50-5.40) Hemoglobin 11.4 g/dL (12.0-15.5) Hematocrit 38.1 % (36.0-47.0) Mean Corpuscular Volume 81 fL (79-100) Mean Corpuscular Hemoglobin 24 pg (25-35) Mean Corpuscular Hemoglobin Concent 30 g/dL (31-37) Red Cell Distribution Width 16.4 % (11.5-14.5) Platelet Count 173 x10^3/uL (140-400) Neutrophils (%) (Auto) 87 % (31-73) Lymphocytes (%) (Auto) 3 % (24-48) Monocytes (%) (Auto) 10 % (0-9) Eosinophils (%) (Auto) 0 % (0-3) Basophils (%) (Auto) 0 % (0-3) Neutrophils # (Auto) 10.2 x10^3/uL (1.8-7.7) Lymphocytes # (Auto) 0.3 x10^3/uL (1.0-4.8) Monocytes # (Auto) 1.1 x10^3/uL (0.0-1.1) Eosinophils # (Auto) 0.0 x10^3/uL (0.0-0.7) Basophils # (Auto) 0.1 x10^3/uL (0.0-0.2) Sodium Level 153 mmol/L (136-145) Potassium Level 3.5 mmol/L (3.5-5.1) Chloride Level 107 mmol/L (98-107) Carbon Dioxide Level 44 mmol/L (21-32) Anion Gap 2 (6-14) Blood Urea Nitrogen 20 mg/dL (7-20) Creatinine 0.6 mg/dL (0.6-1.0) Estimated GFR (Cockcroft-Gault) 102.0 Glucose Level 309 mg/dL (70-99) Calcium Level 8.6 mg/dL (8.5-10.1) Review of Systems Review of Systems: Denies MARTINEZ Denies vision change Assessment and Plan Assessmemt and Plan Problems Medical Problems: (1) Acute bronchitis Status: Acute (2) Acute diastolic CHF (congestive heart failure) Status: Acute (3) Altered mental status Status: Acute (4) Atrial fibrillation with RVR Status: Acute (5) COPD (chronic obstructive pulmonary disease) Status: Chronic (6) COPD exacerbation Status: Acute (7) hypercapnia Status: Acute (8) GERD (gastroesophageal reflux disease) Status: Chronic (9) HLD (hyperlipidemia) Status: Chronic (10) HTN (hypertension) Status: Chronic (11) Hypercapnia Status: Acute (12) Hypercapnic respiratory failure Status: Acute (13) Uncontrolled diabetes mellitus Status: Chronic (14) UTI (urinary tract infection) Status: Acute Assessment Altered mental status, likely med related COPD Exacerbation Severe hypercapnic resp failure, slow to improve Uncontrolled DM Depression GERD COPD Tobacco Abuse HX Obesity BMI 44 Mental retardation Plan Continue 1:1 observation Cardiac monitoring Serial enzymes PPN: Procalamine 50/hr Duonebs IV steroids IV ABX O2 PRN Cont BiPaP Cardizem DVT prophylaxis PT/OT Home meds LTAC eval in progress Await palliative care input Appreciate pulmonary input Comment Review of Relevant I have reviewed the following items ana (where applicable) has been applied. Medications: Current Medications Medications (Trade) Dose Ordered Sig/[place] Route PRN Reason Start Time Stop Time Status Last Admin Dose Admin Haloperidol Lactate (Haldol Inj) 5 mg 1X ONCE IVP 12/02/18 03:00 12/02/18 03:01 DC 12/02/18 02:45 PARTHA EPPS III DO Dec 02, 2018 11:55
[2018-12-02 12:24] LABS: FECAL OB PT POSITIVE (NEG)
[2018-12-02] MEDS: cefTRIAXone IV Push 1 GM VIAL. IVP SCH (14:05)
--- NOTE | 2018-12-02 15:25 | NUR ---
Patient has significantly improved today. Her sister states that she is back to her usual baseline neurologically. Patient able to keep sats > or = 92% with 4-5 L NC O2. Speech/swallow eval done and dysphagia I diet ordered with HTL. In between meals she may have 1/2 cup of ice water with straw with supervision.
[2018-12-02] MEDS: SIMVASTATIN 10 MG TABLET PO SCH (20:40)
[2018-12-02] MEDS: LURASIDONE 40 MG TABLET. PO SCH (20:41)
[2018-12-02] MEDS: INSULIN GLARGINE SYRINGE. SQ SCH (21:35)
[2018-12-03] VITALS (7 sets, daily range): BP systolic 108–122; BP diastolic 33–72
[2018-12-03 04:55] LABS: BASO % 0 % (0-3); EOS % 0 % (0-3); HEMOGLOBIN 10.7 g/dL (12.0-15.5); LYMPH # 0.4 x10^3/uL (1.0-4.8); LYMPH % 4 % (24-48); MEAN CORPUSCULAR HEMOGLOBIN 24 pg (25-35); MEAN CORPUSCULAR HGB CONC 30 g/dL (31-37); MEAN CORPUSCULAR VOLUME 81 fL (79-100); MONO # 0.4 x10^3/uL (0.0-1.1); MONO % 4 % (0-9); NEUT # 9.3 x10^3/uL (1.8-7.7); NEUT % 92 % (31-73); PLATELET COUNT 106 x10^3/uL (140-400); RED BLOOD COUNT 4.45 x10^6/uL (3.50-5.40); RED CELL DISTRIBUTION WIDTH 16.4 % (11.5-14.5); WHITE BLOOD COUNT 10.2 x10^3/uL (4.0-11.0)
[2018-12-03 05:12] LABS: CALCIUM 8.3 mg/dL (8.5-10.1); CREATININE 0.5 mg/dL (0.6-1.0); GFR 125.9; POTASSIUM 4.4 mmol/L (3.5-5.1)
[2018-12-03] MEDS: methylPREDNISolone SOD SUCC PF 40 MG/ML VIAL. IV SCH ×3 (05:59→21:11)
[2018-12-03] MEDS: IPRATRPIUM/ALBUTEROL 0.5/2.5MG 3 ML NEBU. NEB SCH ×4 (07:06→19:50)
[2018-12-03] MEDS: FERROUS SULFATE 325 MG TABLET. PO SCH ×2 (08:05→15:51)
[2018-12-03] MEDS: LACTOBACILLUS RHAMNOSUS GG 1 CAPSULE. PO SCH ×2 (08:05→21:10)
[2018-12-03] MEDS: FUROSEMIDE 20 MG TABLET PO SCH (08:06)
[2018-12-03] MEDS: POLYETHYLENE GLYCOL 3350 17 GM PACKET. PO SCH (08:06)
[2018-12-03] MEDS: metFORMIN 500 MG TABLET PO SCH ×2 (08:06→15:51)
[2018-12-03] MEDS: METOPROLOL SUCC 24HR ER 25 MG TAB.ER.24H. PO SCH (08:06)
[2018-12-03] MEDS: GABAPENTIN 300 MG CAPSULE. PO SCH ×2 (08:06→21:10)
[2018-12-03] MEDS: INSULIN LISPRO 300 UNITS/3 ML VIAL. SQ SCH ×7 (08:12→21:17)
--- NOTE | 2018-12-03 10:04 | NUR ---
SS following up with discharge planning. SS met with pt's sister in room per request. Pt now requiring nasal canula oxygen. Pt is from [facility]. Pt's sister reported that she is concerned with the ability for [place] to provide pt with the skilled therapy that she needs. She is now requesting that pt go to [facility], ; fax [phone], at discharge for a week or two prior to returning to [place]. PT/OT ordered. SS will await PT/OT evaluations and recommendations and will proceed accordingly with discharge planning.
--- NOTE | 2018-12-03 10:14 | PDOC ---
PROGRESS NOTES Assessment Problems Medical Problems: (1) Acute bronchitis Status: Acute (2) Acute diastolic CHF (congestive heart failure) Status: Acute (3) Altered mental status Status: Acute (4) Atrial fibrillation with RVR Status: Acute (5) COPD (chronic obstructive pulmonary disease) Status: Chronic (6) COPD exacerbation Status: Acute (7) hypercapnia Status: Acute (8) GERD (gastroesophageal reflux disease) Status: Chronic (9) HLD (hyperlipidemia) Status: Chronic (10) HTN (hypertension) Status: Chronic (11) Hypercapnia Status: Acute (12) Hypercapnic respiratory failure Status: Acute (13) Uncontrolled diabetes mellitus Status: Chronic (14) UTI (urinary tract infection) Status: Acute Metabolic encephalopathy much better, peers to be at her intellectual baseline. Baseline intellectual disability Still on 1:1 nursing Plan No need for further neurological studies. [facility] Subjective No complaints Objective Vital Signs Date Time Temp Pulse Resp B/P (MAP) Pulse Ox O2 Delivery O2 Flow Rate FiO2 12/03/18 08:13 90 108/62 12/03/18 07:28 Nasal Cannula 3.0 12/03/18 07:06 93 12/03/18 07:00 97.9 18 97.9 Intake and Output 12/03/18 06:59 Intake Total 2000 ml Output Total 303 ml Balance 1697 ml Intake Oral 2000 ml Output Urine Total 303 ml # Voids 11 # Bowel Movements 1 PHYSICAL EXAM Alert. Oriented to person, "Hospital," month and year. PERRL. EOMI. CN: no focal findings. Muscle tone: normal. Muscle strength: 4/5 DTR: 2+ Plantar reflex: flexor Gait: not examined in bed. Sensory exam: no abnormal findings. No cerebellar signs elicited. Review of Relevant I have reviewed the following items ana (where applicable) has been applied. Labs Laboratory Tests Test 12/01/18 11:18 12/01/18 15:44 12/01/18 20:25 12/02/18 06:30 Glucose (Fingerstick) 180 mg/dL (70-99) 218 mg/dL (70-99) 263 mg/dL (70-99) White Blood Count 11.6 x10^3/uL (4.0-11.0) Red Blood Count 4.69 x10^6/uL (3.50-5.40) Hemoglobin 11.4 g/dL (12.0-15.5) Hematocrit 38.1 % (36.0-47.0) Mean Corpuscular Volume 81 fL (79-100) Mean Corpuscular Hemoglobin 24 pg (25-35) Mean Corpuscular Hemoglobin Concent 30 g/dL (31-37) Red Cell Distribution Width 16.4 % (11.5-14.5) Platelet Count 173 x10^3/uL (140-400) Neutrophils (%) (Auto) 87 % (31-73) Lymphocytes (%) (Auto) 3 % (24-48) Monocytes (%) (Auto) 10 % (0-9) Eosinophils (%) (Auto) 0 % (0-3) Basophils (%) (Auto) 0 % (0-3) Neutrophils # (Auto) 10.2 x10^3/uL (1.8-7.7) Lymphocytes # (Auto) 0.3 x10^3/uL (1.0-4.8) Monocytes # (Auto) 1.1 x10^3/uL (0.0-1.1) Eosinophils # (Auto) 0.0 x10^3/uL (0.0-0.7) Basophils # (Auto) 0.1 x10^3/uL (0.0-0.2) Sodium Level 153 mmol/L (136-145) Potassium Level 3.5 mmol/L (3.5-5.1) Chloride Level 107 mmol/L (98-107) Carbon Dioxide Level 44 mmol/L (21-32) Anion Gap 2 (6-14) Blood Urea Nitrogen 20 mg/dL (7-20) Creatinine 0.6 mg/dL (0.6-1.0) Estimated GFR (Cockcroft-Gault) 102.0 Glucose Level 309 mg/dL (70-99) Calcium Level 8.6 mg/dL (8.5-10.1) Test 12/02/18 07:50 12/02/18 11:00 12/02/18 11:37 12/02/18 16:43 Glucose (Fingerstick) 267 mg/dL (70-99) 342 mg/dL (70-99) 293 mg/dL (70-99) Stool Occult Blood Positive (NEG) Test 12/02/18 20:27 12/03/18 04:00 12/03/18 07:14 Glucose (Fingerstick) 272 mg/dL (70-99) 297 mg/dL (70-99) White Blood Count 10.2 x10^3/uL (4.0-11.0) Red Blood Count 4.45 x10^6/uL (3.50-5.40) Hemoglobin 10.7 g/dL (12.0-15.5) Hematocrit 36.0 % (36.0-47.0) Mean Corpuscular Volume 81 fL (79-100) Mean Corpuscular Hemoglobin 24 pg (25-35) Mean Corpuscular Hemoglobin Concent 30 g/dL (31-37) Red Cell Distribution Width 16.4 % (11.5-14.5) Platelet Count 106 x10^3/uL (140-400) Neutrophils (%) (Auto) 92 % (31-73) Lymphocytes (%) (Auto) 4 % (24-48) Monocytes (%) (Auto) 4 % (0-9) Eosinophils (%) (Auto) 0 % (0-3) Basophils (%) (Auto) 0 % (0-3) Neutrophils # (Auto) 9.3 x10^3/uL (1.8-7.7) Lymphocytes # (Auto) 0.4 x10^3/uL (1.0-4.8) Monocytes # (Auto) 0.4 x10^3/uL (0.0-1.1) Eosinophils # (Auto) 0.0 x10^3/uL (0.0-0.7) Basophils # (Auto) 0.0 x10^3/uL (0.0-0.2) Sodium Level 143 mmol/L (136-145) Potassium Level 4.4 mmol/L (3.5-5.1) Chloride Level 101 mmol/L (98-107) Carbon Dioxide Level 38 mmol/L (21-32) Anion Gap 4 (6-14) Blood Urea Nitrogen 19 mg/dL (7-20) Creatinine 0.5 mg/dL (0.6-1.0) Estimated GFR (Cockcroft-Gault) 125.9 Glucose Level 300 mg/dL (70-99) Calcium Level 8.3 mg/dL (8.5-10.1) Laboratory Tests Test 12/02/18 11:00 12/02/18 11:37 12/02/18 16:43 12/02/18 20:27 Stool Occult Blood Positive (NEG) Glucose (Fingerstick) 342 mg/dL (70-99) 293 mg/dL (70-99) 272 mg/dL (70-99) Test 12/03/18 04:00 12/03/18 07:14 White Blood Count 10.2 x10^3/uL (4.0-11.0) Red Blood Count 4.45 x10^6/uL (3.50-5.40) Hemoglobin 10.7 g/dL (12.0-15.5) Hematocrit 36.0 % (36.0-47.0) Mean Corpuscular Volume 81 fL (79-100) Mean Corpuscular Hemoglobin 24 pg (25-35) Mean Corpuscular Hemoglobin Concent 30 g/dL (31-37) Red Cell Distribution Width 16.4 % (11.5-14.5) Platelet Count 106 x10^3/uL (140-400) Neutrophils (%) (Auto) 92 % (31-73) Lymphocytes (%) (Auto) 4 % (24-48) Monocytes (%) (Auto) 4 % (0-9) Eosinophils (%) (Auto) 0 % (0-3) Basophils (%) (Auto) 0 % (0-3) Neutrophils # (Auto) 9.3 x10^3/uL (1.8-7.7) Lymphocytes # (Auto) 0.4 x10^3/uL (1.0-4.8) Monocytes # (Auto) 0.4 x10^3/uL (0.0-1.1) Eosinophils # (Auto) 0.0 x10^3/uL (0.0-0.7) Basophils # (Auto) 0.0 x10^3/uL (0.0-0.2) Sodium Level 143 mmol/L (136-145) Potassium Level 4.4 mmol/L (3.5-5.1) Chloride Level 101 mmol/L (98-107) Carbon Dioxide Level 38 mmol/L (21-32) Anion Gap 4 (6-14) Blood Urea Nitrogen 19 mg/dL (7-20) Creatinine 0.5 mg/dL (0.6-1.0) Estimated GFR (Cockcroft-Gault) 125.9 Glucose Level 300 mg/dL (70-99) Calcium Level 8.3 mg/dL (8.5-10.1) Glucose (Fingerstick) 297 mg/dL (70-99) Microbiology 12/01/18 Blood Culture - Preliminary, Resulted NO GROWTH AFTER 2 DAYS 11/24/18 Urine Culture - Final, Complete 11/24/18 Urine Culture Result 1 (MELO) - Final, Complete Medications Current Medications Albuterol/ Ipratropium (Duoneb) 3 ml 1X ONCE NEB Last administered on 11/24/18at 12:22; Start 11/24/18 at 11:15; Stop 11/24/18 at 11:17; Status DC Ceftriaxone Sodium (Rocephin) 1 gm 1X ONCE IVP Last administered on 11/24/18at 13:00; Start 11/24/18 at 12:45; Stop 11/24/18 at 12:46; Status DC Albuterol/ Ipratropium (Duoneb) 3 ml 1X ONCE NEB Last administered on 11/24/18at 14:43; Start 11/24/18 at 12:45; Stop 11/24/18 at 12:46; Status DC Ondansetron HCl (Zofran) 4 mg PRN Q8HRS PRN IV NAUSEA/VOMITING; Start 11/24/18 at 12:45; Stop 11/25/18 at 12:44; Status DC Sodium Chloride 1,000 ml @ 100 mls/hr Q10H IV Last administered on 11/24/18at 22:39; Start 11/24/18 at 12:36; Stop 11/25/18 at 12:35; Status DC Albuterol/ Ipratropium (Duoneb) 3 ml RTQID NEB Last administered on 11/25/18at 15:27; Start 11/24/18 at 16:00; Stop 11/25/18 at 15:59; Status DC Lorazepam (Ativan Inj) 0.5 mg 1X ONCE IV Last administered on 11/24/18at 17:03; Start 11/24/18 at 16:30; Stop 11/24/18 at 16:31; Status DC Acetaminophen (Tylenol) 650 mg PRN Q6HRS PRN PO PAIN; Start 11/24/18 at 17:30 Ferrous Sulfate (Feosol) 325 mg BIDWMEALS PO Last administered on 12/03/18 08:13; Start 11/24/18 at 17:30 Furosemide (Lasix) 20 mg DAILY PO Last administered on 12/03/18 08:13; Start 11/25/18 at 09:00 Gabapentin (Neurontin) 300 mg BID PO Last administered on 12/03/18 08:13; Start 11/24/18 at 21:00 Insulin Human Lispro (HumaLOG) 8 units TIDWMEALS SQ Last administered on 11/27/18 13:10; Start 11/25/18 at 08:00; Stop 11/27/18 at 13:58; Status DC Metformin HCl (Glucophage) 1,000 mg BIDWMEALS PO Last administered on 12/03/18 08:13; Start 11/24/18 at 17:30 Metoprolol Succinate (Toprol Xl) 50 mg DAILY PO Last administered on 12/03/18 08:13; Start 11/25/18 at 09:00 Polyethylene Glycol (miraLAX PACKET) 17 gm DAILY PO Last administered on 12/03/18 08:13; Start 11/25/18 at 09:00 Senna/Docusate Sodium (Senna Plus) 1 tab PRN BID PRN PO CONSTIPATION; Start 11/24/18 at 17:30 Simvastatin (Zocor) 10 mg HS PO Last administered on 12/02/18at 20:41; Start 11/24/18 at 21:00 Non-Formulary Medication (Albuterol Sulfate (Albuterol Sulfate Hfa Inhaler)) 2 puff Q4HRS INH ; Start 11/24/18 at 20:00; Status UNV Insulin Glargine (Lantus Syringe) 25 unit QHS SQ Last administered on 11/25/18 20:46; Start 11/24/18 at 21:00; Stop 11/25/18 at 22:00; Status DC Non-Formulary Medication (Lurasidone Hcl (Latuda)) 60 mg HS PO ; Start 11/24/18 at 21:00; Stop 11/25/18 at 11:26; Status DC Diltiazem HCl (Cardizem Iv Push) 10 mg 1X ONCE IVP Last administered on 9/7/19at 18:49; Start 11/24/18 at 18:30; Stop 11/24/18 at 19:08; Status DC Diltiazem HCl 125 mg/Dextrose 125 ml @ 5 mls/hr CONT PRN IV . Last administered on 11/29/18at 19:47; Start 11/24/18 at 18:30; Stop 11/30/18 at 14:18; Status DC Methylprednisolone Sodium Succinate (SOLU-Medrol 40MG VIAL) 80 mg Q8HRS IV Last administered on 11/29/18 05:29; Start 11/25/18 at 06:00; Stop 11/29/18 at 10:48; Status DC Methylprednisolone Sodium Succinate (SOLU-Medrol 40MG VIAL) 80 mg 1X ONCE IV Last administered on 11/24/18at 23:09; Start 11/24/18 at 23:00; Stop 11/24/18 at 23:01; Status DC Lorazepam (Ativan Inj) 0.5 mg PRN Q6HRS PRN IV ANXIETY / AGITATION Last administered on 11/26/18at 15:48; Start 11/25/18 at 02:45; Stop 11/26/18 at 19:33; Status DC Furosemide (Lasix) 20 mg 1X ONCE IVP Last administered on 11/25/18 08:40; Start 11/25/18 at 07:30; Stop 11/25/18 at 07:31; Status DC Ceftriaxone Sodium (Rocephin) 1 gm Q24H IVP Last administered on 12/02/18at 14:05; Start 11/25/18 at 13:00 Lactobacillus Rhamnosus (Culturelle) 1 cap BID PO Last administered on 12/03/18at 08:13; Start 11/25/18 at 09:00 Lurasidone HCl (Latuda) 60 mg QHS PO Last administered on 12/02/18 20:41; Start 11/25/18 at 21:00 Insulin Glargine (Lantus Syringe) 25 unit QHS SQ Last administered on 12/02/18at 21:37; Start 11/26/18 at 21:00 Insulin Human Lispro (HumaLOG) 0-7 UNITS TIDWMEALS SQ Last administered on 11/27/18at 13:10; Start 11/25/18 at 17:00; Stop 11/27/18 at 13:58; Status DC Dextrose (Dextrose 50%-Water Syringe) 12.5 gm PRN Q15MIN PRN IV SEE COMMENTS; Start 11/25/18 at 17:00; Stop 11/27/18 at 14:12; Status DC Dextrose 250 ml PRN Q15MIN PRN IV SEE COMMENTS; Start 11/25/18 at 17:00 Albuterol/ Ipratropium (Duoneb) 3 ml RTQID NEB Last administered on 12/03/18at 07:06; Start 11/25/18 at 20:00 Aspirin (Aspirin Rectal Supp) 300 mg 1X ONCE ME Last administered on 11/26/18at 10:36; Start 11/26/18 at 09:00; Stop 11/26/18 at 09:01; Status DC Aspirin (Ecotrin) 81 mg [id number] PO ; Start 11/27/18 at 08:00; Stop 11/27/18 at 10:00; Status DC Magnesium Sulfate/ Dextrose 100 ml @ 100 mls/hr 1X ONCE IV Last administered on 11/26/18at 16:04; Start 11/26/18 at 15:15; Stop 11/26/18 at 16:14; Status DC Lorazepam (Ativan Inj) 2 mg PRN Q4HRS PRN IV ANXIETY / AGITATION Last administered on 11/28/18at 13:37; Start 11/26/18 at 19:30; Stop 11/29/18 at 10:48; Status DC Haloperidol Lactate (Haldol Inj) 5 mg 1X ONCE IVP Last administered on 11/26/18at 19:55; Start 11/26/18 at 19:30; Stop 11/26/18 at 19:38; Status DC Aspirin (Aspirin Rectal Supp) 150 mg DAILY ME Last administered on 11/27/18at 13:10; Start 11/27/18 at 10:30; Stop 11/28/18 at 08:03; Status DC Amino Acids/ Glycerin/ Electrolytes 1,000 ml @ 50 mls/hr Q20H IV Last administered on 11/27/18at 13:10; Start 11/27/18 at 12:15; Stop 11/28/18 at 14:00; Status DC Digoxin (Lanoxin) 500 mcg 1X ONCE IV Last administered on 11/27/18at 13:22; Start 11/27/18 at 13:00; Stop 11/27/18 at 13:07; Status DC Insulin Human Lispro (HumaLOG) 12 units TIDWMEALS SQ Last administered on 12/03/18at 08:13; Start 11/27/18 at 17:00 Insulin Human Lispro (HumaLOG) 0-7 UNITS TIDWMEALS SQ ; Start 11/27/18 at 17:00; Stop 11/27/18 at 16:34; Status DC Dextrose (Dextrose 50%-Water Syringe) 12.5 gm PRN Q15MIN PRN IV SEE COMMENTS; Start 11/27/18 at 14:00 Dextrose 250 ml PRN Q15MIN PRN IV SEE COMMENTS; Start 11/27/18 at 14:00; Status Cancel Metoprolol Tartrate (Lopressor Vial) 5 mg PRN Q5MIN PRN IVP TACHYCARDIA Last administered on 11/30/18at 07:52; Start 11/27/18 at 16:00 Enoxaparin Sodium (Lovenox Per Pharmacy Treatment Dosing) 1 each PRN DAILY PRN MC SEE COMMENTS; Start 11/27/18 at 16:00 Enoxaparin Sodium (Lovenox 100mg Syringe) 100 mg Q12HR SQ Last administered on 12/03/18at 08:13; Start 11/27/18 at 16:30 Insulin Human Lispro (HumaLOG) 0-9 UNITS TIDWMEALS SQ Last administered on 11/28/18at 12:19; Start 11/27/18 at 17:00; Stop 11/28/18 at 16:38; Status DC Acetaminophen (Tylenol Supp) 325 mg PRN Q6HRS PRN ME MILD PAIN / TEMP Last administered on 12/01/18at 09:11; Start 11/27/18 at 16:45 Sodium Polystyrene Sulfonate (Kayexalate) 30 gm 1X ONCE RC ; Start 11/28/18 at 12:00; Stop 11/28/18 at 12:01; Status DC Sodium Chloride 1,000 ml @ 60 mls/hr [id number] IV Last administered on 11/30/18at 21:23; Start 11/28/18 at 14:00; Stop 12/01/18 at 09:29; Status DC Insulin Human Lispro (HumaLOG) 0-9 UNITS QIDACHS SQ Last administered on 12/03/18at 08:13; Start 11/28/18 at 16:45 Ceftriaxone Sodium (Rocephin) 1 gm Q24H IVP ; Start 11/29/18 at 09:00; Status UNV Digoxin (Lanoxin) 250 mcg 1X ONCE IV Last administered on 11/29/18at 08:46; Start 11/29/18 at 08:30; Stop 11/29/18 at 08:31; Status DC Lorazepam (Ativan Inj) 0.5 mg PRN Q4HRS PRN IV ANXIETY / AGITATION Last administered on 11/30/18at 02:44; Start 11/29/18 at 11:00; Stop 11/30/18 at 11:45; Status DC Methylprednisolone Sodium Succinate (SOLU-Medrol 40MG VIAL) 40 mg Q8HRS IV Last administered on 12/03/18at 05:59; Start 11/29/18 at 11:00 Metoprolol Tartrate (Lopressor Vial) 10 mg Q6HRS IVP Last administered on 12/01/18at 05:57; Start 11/30/18 at 16:00; Stop 12/01/18 at 11:32; Status DC Lorazepam (Ativan Inj) 1 mg PRN Q6HRS PRN IV ANXIETY / AGITATION Last administered on 12/01/18at 01:50; Start 11/30/18 at 23:45; Stop 12/01/18 at 02:31; Status DC Clonidine HCl (Catapres Tts-1) 1 patch WEEKLY TD Last administered on 12/01/18at 11:34; Start 12/01/18 at 10:00 Amino Acids/ Glycerin/ Electrolytes 1,000 ml @ 60 mls/hr [id number] IV Last administered on 12/02/18at 17:36; Start 12/01/18 at 10:00 Metoprolol Tartrate (Lopressor Vial) 10 mg PRN Q6HRS PRN IVP 160/100, or hR > 130 bp allowi; Start 12/01/18 at 11:45 Haloperidol Lactate (Haldol Inj) 5 mg 1X ONCE IVP Last administered on 12/02/18at 02:45; Start 12/02/18 at 03:00; Stop 12/02/18 at 03:01; Status DC Active Scripts Active Proair Hfa Inhaler (Albuterol Sulfate) 8.5 Gm Hfa.aer.ad 1 Puff INH PRN Q6HRS PRN Proair Hfa Inhaler (Albuterol Sulfate) 8.5 Gm Hfa.aer.ad 2 Puff INH PRN Q6HRS PRN Colace 2-in-1 Tablet (Sennosides/Docusate Sodium) 1 Each Tablet 1 Each PO BID PRN Glucophage (Metformin Hcl) 500 Mg Tablet 1,000 Mg PO BIDWMEALS Reported Lasix (Furosemide) 20 Mg Tablet 20 Mg PO DAILY Metoprolol Succinate ( Xl ) (Metoprolol Succinate) 25 Mg Tab.er.24h 50 Mg PO DAILY Acetaminophen 650 Mg/20.3 Ml Solution 650 Mg FT PRN PRN Miralax (Polyethylene Glycol 3350) 17 Gm Powd.pack 1 Pkt PO DAILY Ferrous Sulfate 325 Mg Tablet 325 Mg PO BID Seroquel (Quetiapine Fumarate) 200 Mg Tablet 200 Mg PO HS Melatonin 3 Mg Tablet 3 Mg PO HS Simvastatin 10 Mg Tablet 10 Mg PO HS Symbicort 160-4.5 Mcg Inhaler (Budesonide/Formoterol Fumarate) 10.2 Gm Hfa.aer.ad 2 Puff IH BID Albuterol Sulfate Hfa Inhaler (Albuterol Sulfate) 8.5 Gm Hfa.aer.ad 2 Puff INH Q4HRS Vitals/I & O Vital Sign - Last 24 Hours 12/02/18 12/02/18 12/02/18 12/02/18 10:51 11:00 12:56 15:38 Temp 99.9 99.1 99.9 99.1 Pulse 85 85 92 Resp 22 22 B/P (MAP) 138/66 (90) 138/66 143/70 (94) Pulse Ox 94 94 94 O2 Delivery Nasal Cannula Nasal Cannula Nasal Cannula O2 Flow Rate 5.0 5.0 4.0 12/02/18 12/02/18 12/02/18 12/02/18 19:00 19:50 20:00 23:28 Temp 99.3 99.4 99.3 99.4 Pulse 68 82 B/P (MAP) 159/63 (95) 103/51 (68) Pulse Ox 94 94 96 O2 Delivery Nasal Cannula Nasal Cannula Nasal Cannula Nasal Cannula O2 Flow Rate 4.0 4.0 4.0 4.0 12/02/18 12/03/18 12/03/18 12/03/18 23:42 03:24 07:00 07:06 Temp 98.6 97.9 98.6 97.9 Pulse 82 67 90 Resp 18 B/P (MAP) 111/64 (80) 108/66 (80) 108/62 (77) Pulse Ox 97 95 93 93 O2 Delivery Nasal Cannula Nasal Cannula Nasal Cannula Nasal Cannula O2 Flow Rate 3.5 3.5 3.0 2.5 12/03/18 12/03/18 07:28 08:13 Pulse 90 B/P (MAP) 108/62 O2 Delivery Nasal Cannula O2 Flow Rate 3.0 Intake and Output 12/02/18 12/02/18 12/03/18 14:59 22:59 06:59 Intake Total 500 ml 1500 ml Output Total 1 ml 302 ml Balance 500 ml 1499 ml -302 ml TOD KAISER MD Dec 03, 2018 10:14
[2018-12-03] MEDS: AMINO AC 3%/ELECTROLYTE/GLYCER 1,000 ML IV SCH (11:04)
[2018-12-03] MEDS: cefTRIAXone IV Push 1 GM VIAL. IVP SCH (11:25)
--- NOTE | 2018-12-03 12:42 | PDOC ---
PULMONARY PROGRESS NOTES Subjective PT. is awake and alert and interactive today. Out of mittens at this time. Pt. is wanting to eat and drink. sitter remains at bedside. Pt. denies any Shortness of breath or cough. Vitals Vital Signs Date Time Temp Pulse Resp B/P (MAP) Pulse Ox O2 Delivery O2 Flow Rate FiO2 12/03/18 12:02 Nasal Cannula 2.0 12/03/18 11:00 98.0 89 18 110/68 (82) 93 98.0 ROS: No Chest Pain, No Increase Cough General: Alert, No acute distress Lungs: Other (Dimished in bases ) Cardiovascular: S1, S2 Abdomen: Soft, Non-tender Neuro Exam: Alert Extremities: Other (1+edema) Skin: Warm, Dry Labs Laboratory Tests Test 12/01/18 15:44 12/01/18 20:25 12/02/18 06:30 12/02/18 07:50 Glucose (Fingerstick) 218 mg/dL (70-99) 263 mg/dL (70-99) 267 mg/dL (70-99) White Blood Count 11.6 x10^3/uL (4.0-11.0) Red Blood Count 4.69 x10^6/uL (3.50-5.40) Hemoglobin 11.4 g/dL (12.0-15.5) Hematocrit 38.1 % (36.0-47.0) Mean Corpuscular Volume 81 fL (79-100) Mean Corpuscular Hemoglobin 24 pg (25-35) Mean Corpuscular Hemoglobin Concent 30 g/dL (31-37) Red Cell Distribution Width 16.4 % (11.5-14.5) Platelet Count 173 x10^3/uL (140-400) Neutrophils (%) (Auto) 87 % (31-73) Lymphocytes (%) (Auto) 3 % (24-48) Monocytes (%) (Auto) 10 % (0-9) Eosinophils (%) (Auto) 0 % (0-3) Basophils (%) (Auto) 0 % (0-3) Neutrophils # (Auto) 10.2 x10^3/uL (1.8-7.7) Lymphocytes # (Auto) 0.3 x10^3/uL (1.0-4.8) Monocytes # (Auto) 1.1 x10^3/uL (0.0-1.1) Eosinophils # (Auto) 0.0 x10^3/uL (0.0-0.7) Basophils # (Auto) 0.1 x10^3/uL (0.0-0.2) Sodium Level 153 mmol/L (136-145) Potassium Level 3.5 mmol/L (3.5-5.1) Chloride Level 107 mmol/L (98-107) Carbon Dioxide Level 44 mmol/L (21-32) Anion Gap 2 (6-14) Blood Urea Nitrogen 20 mg/dL (7-20) Creatinine 0.6 mg/dL (0.6-1.0) Estimated GFR (Cockcroft-Gault) 102.0 Glucose Level 309 mg/dL (70-99) Calcium Level 8.6 mg/dL (8.5-10.1) Test 12/02/18 11:00 12/02/18 11:37 12/02/18 16:43 12/02/18 20:27 Stool Occult Blood Positive (NEG) Glucose (Fingerstick) 342 mg/dL (70-99) 293 mg/dL (70-99) 272 mg/dL (70-99) Test 12/03/18 04:00 12/03/18 07:14 12/03/18 11:33 12/03/18 11:42 White Blood Count 10.2 x10^3/uL (4.0-11.0) Red Blood Count 4.45 x10^6/uL (3.50-5.40) Hemoglobin 10.7 g/dL (12.0-15.5) Hematocrit 36.0 % (36.0-47.0) Mean Corpuscular Volume 81 fL (79-100) Mean Corpuscular Hemoglobin 24 pg (25-35) Mean Corpuscular Hemoglobin Concent 30 g/dL (31-37) Red Cell Distribution Width 16.4 % (11.5-14.5) Platelet Count 106 x10^3/uL (140-400) Neutrophils (%) (Auto) 92 % (31-73) Lymphocytes (%) (Auto) 4 % (24-48) Monocytes (%) (Auto) 4 % (0-9) Eosinophils (%) (Auto) 0 % (0-3) Basophils (%) (Auto) 0 % (0-3) Neutrophils # (Auto) 9.3 x10^3/uL (1.8-7.7) Lymphocytes # (Auto) 0.4 x10^3/uL (1.0-4.8) Monocytes # (Auto) 0.4 x10^3/uL (0.0-1.1) Eosinophils # (Auto) 0.0 x10^3/uL (0.0-0.7) Basophils # (Auto) 0.0 x10^3/uL (0.0-0.2) Sodium Level 143 mmol/L (136-145) Potassium Level 4.4 mmol/L (3.5-5.1) Chloride Level 101 mmol/L (98-107) Carbon Dioxide Level 38 mmol/L (21-32) Anion Gap 4 (6-14) Blood Urea Nitrogen 19 mg/dL (7-20) Creatinine 0.5 mg/dL (0.6-1.0) Estimated GFR (Cockcroft-Gault) 125.9 Glucose Level 300 mg/dL (70-99) Calcium Level 8.3 mg/dL (8.5-10.1) Glucose (Fingerstick) 297 mg/dL (70-99) 370 mg/dL (70-99) 352 mg/dL (70-99) Laboratory Tests Test 12/02/18 16:43 12/02/18 20:27 12/03/18 04:00 12/03/18 07:14 Glucose (Fingerstick) 293 mg/dL (70-99) 272 mg/dL (70-99) 297 mg/dL (70-99) White Blood Count 10.2 x10^3/uL (4.0-11.0) Red Blood Count 4.45 x10^6/uL (3.50-5.40) Hemoglobin 10.7 g/dL (12.0-15.5) Hematocrit 36.0 % (36.0-47.0) Mean Corpuscular Volume 81 fL (79-100) Mean Corpuscular Hemoglobin 24 pg (25-35) Mean Corpuscular Hemoglobin Concent 30 g/dL (31-37) Red Cell Distribution Width 16.4 % (11.5-14.5) Platelet Count 106 x10^3/uL (140-400) Neutrophils (%) (Auto) 92 % (31-73) Lymphocytes (%) (Auto) 4 % (24-48) Monocytes (%) (Auto) 4 % (0-9) Eosinophils (%) (Auto) 0 % (0-3) Basophils (%) (Auto) 0 % (0-3) Neutrophils # (Auto) 9.3 x10^3/uL (1.8-7.7) Lymphocytes # (Auto) 0.4 x10^3/uL (1.0-4.8) Monocytes # (Auto) 0.4 x10^3/uL (0.0-1.1) Eosinophils # (Auto) 0.0 x10^3/uL (0.0-0.7) Basophils # (Auto) 0.0 x10^3/uL (0.0-0.2) Sodium Level 143 mmol/L (136-145) Potassium Level 4.4 mmol/L (3.5-5.1) Chloride Level 101 mmol/L (98-107) Carbon Dioxide Level 38 mmol/L (21-32) Anion Gap 4 (6-14) Blood Urea Nitrogen 19 mg/dL (7-20) Creatinine 0.5 mg/dL (0.6-1.0) Estimated GFR (Cockcroft-Gault) 125.9 Glucose Level 300 mg/dL (70-99) Calcium Level 8.3 mg/dL (8.5-10.1) Test 12/03/18 11:33 12/03/18 11:42 Glucose (Fingerstick) 370 mg/dL (70-99) 352 mg/dL (70-99) Medications Active Scripts Medications Dose Route/Sig Max Daily Dose Days Date Category Lasix (Furosemide) 20 Mg Tablet 20 Mg PO DAILY 11/24/18 Reported Metoprolol Succinate ( Xl ) (Metoprolol Succinate) 25 Mg Tab.er.24h 50 Mg PO DAILY 11/24/18 Reported Acetaminophen 650 Mg/20.3 Ml Solution 650 Mg FT PRN PRN 11/24/18 Reported Miralax (Polyethylene Glycol 3350) 17 Gm Powd.pack 1 Pkt PO DAILY 11/24/18 Reported Ferrous Sulfate 325 Mg Tablet 325 Mg PO BID 11/24/18 Reported Seroquel (Quetiapine Fumarate) 200 Mg Tablet 200 Mg PO HS 11/24/18 Reported Melatonin 3 Mg Tablet 3 Mg PO HS 11/24/18 Reported Proair Hfa Inhaler (Albuterol Sulfate) 8.5 Gm Hfa.aer.ad 1 Puff INH PRN Q6HRS PRN 10/13/18 Rx Proair Hfa Inhaler (Albuterol Sulfate) 8.5 Gm Hfa.aer.ad 2 Puff INH PRN Q6HRS PRN 03/03/18 Rx Colace 2-in-1 Tablet (Sennosides/Docusate Sodium) 1 Each Tablet 1 Each PO BID PRN 01/02/18 Rx Glucophage (Metformin Hcl) 500 Mg Tablet 1,000 Mg PO BIDWMEALS 05/20/15 Rx Simvastatin 10 Mg Tablet 10 Mg PO HS 10/13/14 Reported Symbicort 160-4.5 Mcg Inhaler (Budesonide/Formoterol Fumarate) 10.2 Gm Hfa.aer.ad 2 Puff IH BID 08/13/14 Reported Albuterol Sulfate Hfa Inhaler (Albuterol Sulfate) 8.5 Gm Hfa.aer.ad 2 Puff INH Q4HRS 08/13/14 Reported Impression . 1. Acute on chronic hypoxemic hypercarbic respiratory failure, multifactorial: acute exacerbation of chronic obstructive pulmonary disease, acute bronchitis , acute diastolic congestive heart failure---improved 2. Acute exacerbation of chronic obstructive pulmonary disease.---improving 3. Acute bronchitis- improved 4. Acute diastolic congestive heart failure: on 11/25/18 Ejection Fraction is 60- 65%. 5. Mental retardation---stable 6. Hypertension.---stable/ongoing 7. Diabetes mellitus.--stable/ongoing 8. New onset atrial fibrillation with rapid ventricular response, now in sinus rhythm.---resolved 9. Encephalopathy- improved Plan . 1. BIPAP PRN now on [place], supplemental oxygen to keep sats above 92% 2. Continue steroids.taper dose 3. Continue antibiotic. 4. Lasix and anticoagulation per cardiology 5. Elevate head of bed. 6. Bronchodilators. 7. ST eval? before p.o. intake vs. pleasure feed per IM 8. DNR/DNI. 9. discussed with [facility] today will sign off CLEM SCHAEFER MD Dec 03, 2018 12:42
--- NOTE | 2018-12-03 13:14 | PDOC ---
[facility] PROGRESS NOTE Chief Complaint Chief Complaint Altered mental status, likely med related COPD Exacerbation Severe hypercapnic resp failure, slow to improve, BIPAP Uncontrolled DM Depression GERD COPD Tobacco Abuse HX Obesity BMI 44 Mental retardation DNR History of Present Illness History of Present Illness 12/02/18 Seen and evaluated pt at bedside, resting with NAD Family member present today Pt off bipap upon entry Pt demonstrated ability to swallow pudding; RN states she successfully completed bedside swallowing earlier as well Exhibits mild confusion- says the current year is 2019 but appears oriented to self and place 12/03/18 Seen and evaluated pt at bedside, resting with NAD Family member (sister) present today Pt off bipap upon entry Pt is oriented to self and place, said the year was 2018 Vitals/I&O Vitals/I&O: Vital Signs Date Time Temp Pulse Resp B/P (MAP) Pulse Ox O2 Delivery O2 Flow Rate FiO2 12/03/18 12:02 Nasal Cannula 2.0 12/03/18 11:00 98.0 89 18 110/68 (82) 93 98.0 I & O 12/02/18 12/02/18 12/03/18 15:00 23:00 07:00 Intake Total 500 ml 1500 ml Output Total 1 ml 302 ml Balance 500 ml 1499 ml -302 ml Physical Exam Physical Exam: Eyes: PERRLA, EOMI, conjunctiva normal, no discharge. [] Neck: Normal range of motion, no tenderness, supple, no stridor. [] Cardiovascular: Sinus tachycardia, regular rhythm, no murmur [] Lungs & Thorax: Bilateral breath sounds equal but wheezing. ] Abdomen: Bowel sounds normal, soft, no tenderness, no masses, no pulsatile masses. [] Skin: Warm, dry, no erythema, no rash. [] Back: No tenderness, no CVA tenderness. [] Extremities: No tenderness, no cyanosis, no clubbing, General: Alert, Oriented X3, Cooperative, No acute distress Heart: Regular rate, Normal S1, Normal S2 Lungs: Clear, Other (Dimished in bases ) Abdomen: Normal bowel sounds, Soft, No tenderness Extremities: No clubbing, No cyanosis, No tenderness/swelling Skin: No rashes, No significant lesion Labs Labs: Laboratory Tests Test 12/02/18 16:43 12/02/18 20:27 12/03/18 04:00 12/03/18 07:14 Glucose (Fingerstick) 293 mg/dL (70-99) 272 mg/dL (70-99) 297 mg/dL (70-99) White Blood Count 10.2 x10^3/uL (4.0-11.0) Red Blood Count 4.45 x10^6/uL (3.50-5.40) Hemoglobin 10.7 g/dL (12.0-15.5) Hematocrit 36.0 % (36.0-47.0) Mean Corpuscular Volume 81 fL (79-100) Mean Corpuscular Hemoglobin 24 pg (25-35) Mean Corpuscular Hemoglobin Concent 30 g/dL (31-37) Red Cell Distribution Width 16.4 % (11.5-14.5) Platelet Count 106 x10^3/uL (140-400) Neutrophils (%) (Auto) 92 % (31-73) Lymphocytes (%) (Auto) 4 % (24-48) Monocytes (%) (Auto) 4 % (0-9) Eosinophils (%) (Auto) 0 % (0-3) Basophils (%) (Auto) 0 % (0-3) Neutrophils # (Auto) 9.3 x10^3/uL (1.8-7.7) Lymphocytes # (Auto) 0.4 x10^3/uL (1.0-4.8) Monocytes # (Auto) 0.4 x10^3/uL (0.0-1.1) Eosinophils # (Auto) 0.0 x10^3/uL (0.0-0.7) Basophils # (Auto) 0.0 x10^3/uL (0.0-0.2) Sodium Level 143 mmol/L (136-145) Potassium Level 4.4 mmol/L (3.5-5.1) Chloride Level 101 mmol/L (98-107) Carbon Dioxide Level 38 mmol/L (21-32) Anion Gap 4 (6-14) Blood Urea Nitrogen 19 mg/dL (7-20) Creatinine 0.5 mg/dL (0.6-1.0) Estimated GFR (Cockcroft-Gault) 125.9 Glucose Level 300 mg/dL (70-99) Calcium Level 8.3 mg/dL (8.5-10.1) Test 12/03/18 11:33 12/03/18 11:42 Glucose (Fingerstick) 370 mg/dL (70-99) 352 mg/dL (70-99) Review of Systems Review of Systems: No nausea No vomiting Assessment and Plan Assessmemt and Plan Problems Medical Problems: (1) Acute bronchitis Status: Acute (2) Acute diastolic CHF (congestive heart failure) Status: Acute (3) Altered mental status Status: Acute (4) Atrial fibrillation with RVR Status: Acute (5) COPD (chronic obstructive pulmonary disease) Status: Chronic (6) COPD exacerbation Status: Acute (7) hypercapnia Status: Acute (8) GERD (gastroesophageal reflux disease) Status: Chronic (9) HLD (hyperlipidemia) Status: Chronic (10) HTN (hypertension) Status: Chronic (11) Hypercapnia Status: Acute (12) Hypercapnic respiratory failure Status: Acute (13) Uncontrolled diabetes mellitus Status: Chronic (14) UTI (urinary tract infection) Status: Acute Plan Bipap PRN PO intake Labs Home meds Discharge disposition pending Comment Review of Relevant I have reviewed the following items ana (where applicable) has been applied. PARTHA EPPS III, DO Dec 03, 2018 13:14
[2018-12-03] MEDS: LURASIDONE 40 MG TABLET. PO SCH (21:09)
[2018-12-03] MEDS: SIMVASTATIN 10 MG TABLET PO SCH (21:10)
[2018-12-03] MEDS: INSULIN GLARGINE SYRINGE. SQ SCH (21:17)
[2018-12-04 03:00] VITALS: BP 120/60
[2018-12-04] MEDS: AMINO AC 3%/ELECTROLYTE/GLYCER 1,000 ML IV SCH (03:54)
[2018-12-04 05:59] LABS: BASO # 0.1 x10^3/uL (0.0-0.2); BASO % 1 % (0-3); EOS % 0 % (0-3); HEMATOCRIT 31.8 % (36.0-47.0); HEMOGLOBIN 9.9 g/dL (12.0-15.5); LYMPH # 0.5 x10^3/uL (1.0-4.8); LYMPH % 5 % (24-48); MEAN CORPUSCULAR HEMOGLOBIN 24 pg (25-35); MEAN CORPUSCULAR HGB CONC 31 g/dL (31-37); MEAN CORPUSCULAR VOLUME 78 fL (79-100); MONO # 0.4 x10^3/uL (0.0-1.1); MONO % 4 % (0-9); NEUT # 10.3 x10^3/uL (1.8-7.7); NEUT % 91 % (31-73); PLATELET COUNT 89 x10^3/uL (140-400); RED BLOOD COUNT 4.06 x10^6/uL (3.50-5.40); RED CELL DISTRIBUTION WIDTH 15.8 % (11.5-14.5); WHITE BLOOD COUNT 11.2 x10^3/uL (4.0-11.0)
[2018-12-04] MEDS: methylPREDNISolone SOD SUCC PF 40 MG/ML VIAL. IV SCH ×2 (06:05→14:00)
[2018-12-04 06:10] LABS: CALCIUM 8.5 mg/dL (8.5-10.1); CREATININE 0.6 mg/dL (0.6-1.0)
[2018-12-04 07:00] VITALS: BP 118/77
[2018-12-04] MEDS: IPRATRPIUM/ALBUTEROL 0.5/2.5MG 3 ML NEBU. NEB SCH ×2 (07:17→11:39)
[2018-12-04] MEDS: LACTOBACILLUS RHAMNOSUS GG 1 CAPSULE. PO SCH (07:56)
[2018-12-04] MEDS: FERROUS SULFATE 325 MG TABLET. PO SCH (07:56)
[2018-12-04] MEDS: GABAPENTIN 300 MG CAPSULE. PO SCH (07:56)
[2018-12-04] MEDS: metFORMIN 500 MG TABLET PO SCH (07:57)
[2018-12-04] MEDS: POLYETHYLENE GLYCOL 3350 17 GM PACKET. PO SCH ×2 (07:57→08:09)
[2018-12-04] MEDS: FUROSEMIDE 20 MG TABLET PO SCH (07:57)
[2018-12-04] MEDS: METOPROLOL SUCC 24HR ER 25 MG TAB.ER.24H. PO SCH (07:57)
[2018-12-04] MEDS: INSULIN LISPRO 300 UNITS/3 ML VIAL. SQ SCH ×4 (07:58→11:59)
--- NOTE | 2018-12-04 08:38 | PDOC ---
PROGRESS NOTES Assessment Problems Medical Problems: (1) Acute bronchitis Status: Acute (2) Acute diastolic CHF (congestive heart failure) Status: Acute (3) Altered mental status Status: Acute (4) Atrial fibrillation with RVR Status: Acute (5) COPD (chronic obstructive pulmonary disease) Status: Chronic (6) COPD exacerbation Status: Acute (7) hypercapnia Status: Acute (8) GERD (gastroesophageal reflux disease) Status: Chronic (9) HLD (hyperlipidemia) Status: Chronic (10) HTN (hypertension) Status: Chronic (11) Hypercapnia Status: Acute (12) Hypercapnic respiratory failure Status: Acute (13) Uncontrolled diabetes mellitus Status: Chronic (14) UTI (urinary tract infection) Status: Acute Metabolic encephalopathy much better, peers to be at her intellectual baseline. Baseline intellectual disability Still on 1:1 nursing due to impulsivity, okay to discontinue it Plan No need for further neurological studies. Discharge back to custodial Subjective Wants to go home Objective Vital Signs Date Time Temp Pulse Resp B/P (MAP) Pulse Ox O2 Delivery O2 Flow Rate FiO2 12/04/18 08:00 68 118/77 12/04/18 07:19 94 Nasal Cannula 2.0 12/04/18 07:00 98.0 20 98.0 Intake and Output 12/04/18 06:59 Intake Total 860 ml Output Total 5 ml Balance 855 ml Intake Oral 860 ml Stool Total 5 ml # Voids 7 # Bowel Movements 2 PHYSICAL EXAM Alert. Oriented to person, "Hospital," does not know date. PERRL. EOMI. CN: no focal findings. Muscle tone: normal. Muscle strength: 4/5 DTR: 2+ Plantar reflex: flexor Gait: not examined in bed. Sensory exam: no abnormal findings. No cerebellar signs elicited. Review of Relevant I have reviewed the following items ana (where applicable) has been applied. Labs Laboratory Tests Test 12/02/18 11:00 12/02/18 11:37 12/02/18 16:43 12/02/18 20:27 Stool Occult Blood Positive (NEG) Glucose (Fingerstick) 342 mg/dL (70-99) 293 mg/dL (70-99) 272 mg/dL (70-99) Test 12/03/18 04:00 12/03/18 07:14 12/03/18 11:33 12/03/18 11:42 White Blood Count 10.2 x10^3/uL (4.0-11.0) Red Blood Count 4.45 x10^6/uL (3.50-5.40) Hemoglobin 10.7 g/dL (12.0-15.5) Hematocrit 36.0 % (36.0-47.0) Mean Corpuscular Volume 81 fL (79-100) Mean Corpuscular Hemoglobin 24 pg (25-35) Mean Corpuscular Hemoglobin Concent 30 g/dL (31-37) Red Cell Distribution Width 16.4 % (11.5-14.5) Platelet Count 106 x10^3/uL (140-400) Neutrophils (%) (Auto) 92 % (31-73) Lymphocytes (%) (Auto) 4 % (24-48) Monocytes (%) (Auto) 4 % (0-9) Eosinophils (%) (Auto) 0 % (0-3) Basophils (%) (Auto) 0 % (0-3) Neutrophils # (Auto) 9.3 x10^3/uL (1.8-7.7) Lymphocytes # (Auto) 0.4 x10^3/uL (1.0-4.8) Monocytes # (Auto) 0.4 x10^3/uL (0.0-1.1) Eosinophils # (Auto) 0.0 x10^3/uL (0.0-0.7) Basophils # (Auto) 0.0 x10^3/uL (0.0-0.2) Sodium Level 143 mmol/L (136-145) Potassium Level 4.4 mmol/L (3.5-5.1) Chloride Level 101 mmol/L (98-107) Carbon Dioxide Level 38 mmol/L (21-32) Anion Gap 4 (6-14) Blood Urea Nitrogen 19 mg/dL (7-20) Creatinine 0.5 mg/dL (0.6-1.0) Estimated GFR (Cockcroft-Gault) 125.9 Glucose Level 300 mg/dL (70-99) Calcium Level 8.3 mg/dL (8.5-10.1) Glucose (Fingerstick) 297 mg/dL (70-99) 370 mg/dL (70-99) 352 mg/dL (70-99) Test 12/03/18 16:27 12/03/18 21:11 12/04/18 05:30 12/04/18 06:58 Glucose (Fingerstick) 239 mg/dL (70-99) 253 mg/dL (70-99) 212 mg/dL (70-99) White Blood Count 11.2 x10^3/uL (4.0-11.0) Red Blood Count 4.06 x10^6/uL (3.50-5.40) Hemoglobin 9.9 g/dL (12.0-15.5) Hematocrit 31.8 % (36.0-47.0) Mean Corpuscular Volume 78 fL (79-100) Mean Corpuscular Hemoglobin 24 pg (25-35) Mean Corpuscular Hemoglobin Concent 31 g/dL (31-37) Red Cell Distribution Width 15.8 % (11.5-14.5) Platelet Count 89 x10^3/uL (140-400) Neutrophils (%) (Auto) 91 % (31-73) Lymphocytes (%) (Auto) 5 % (24-48) Monocytes (%) (Auto) 4 % (0-9) Eosinophils (%) (Auto) 0 % (0-3) Basophils (%) (Auto) 1 % (0-3) Neutrophils # (Auto) 10.3 x10^3/uL (1.8-7.7) Lymphocytes # (Auto) 0.5 x10^3/uL (1.0-4.8) Monocytes # (Auto) 0.4 x10^3/uL (0.0-1.1) Eosinophils # (Auto) 0.0 x10^3/uL (0.0-0.7) Basophils # (Auto) 0.1 x10^3/uL (0.0-0.2) Sodium Level 140 mmol/L (136-145) Potassium Level 4.0 mmol/L (3.5-5.1) Chloride Level 98 mmol/L (98-107) Carbon Dioxide Level 38 mmol/L (21-32) Anion Gap 4 (6-14) Blood Urea Nitrogen 24 mg/dL (7-20) Creatinine 0.6 mg/dL (0.6-1.0) Estimated GFR (Cockcroft-Gault) 102.0 Glucose Level 227 mg/dL (70-99) Calcium Level 8.5 mg/dL (8.5-10.1) Laboratory Tests Test 12/03/18 11:33 12/03/18 11:42 12/03/18 16:27 12/03/18 21:11 Glucose (Fingerstick) 370 mg/dL (70-99) 352 mg/dL (70-99) 239 mg/dL (70-99) 253 mg/dL (70-99) Test 12/04/18 05:30 12/04/18 06:58 White Blood Count 11.2 x10^3/uL (4.0-11.0) Red Blood Count 4.06 x10^6/uL (3.50-5.40) Hemoglobin 9.9 g/dL (12.0-15.5) Hematocrit 31.8 % (36.0-47.0) Mean Corpuscular Volume 78 fL (79-100) Mean Corpuscular Hemoglobin 24 pg (25-35) Mean Corpuscular Hemoglobin Concent 31 g/dL (31-37) Red Cell Distribution Width 15.8 % (11.5-14.5) Platelet Count 89 x10^3/uL (140-400) Neutrophils (%) (Auto) 91 % (31-73) Lymphocytes (%) (Auto) 5 % (24-48) Monocytes (%) (Auto) 4 % (0-9) Eosinophils (%) (Auto) 0 % (0-3) Basophils (%) (Auto) 1 % (0-3) Neutrophils # (Auto) 10.3 x10^3/uL (1.8-7.7) Lymphocytes # (Auto) 0.5 x10^3/uL (1.0-4.8) Monocytes # (Auto) 0.4 x10^3/uL (0.0-1.1) Eosinophils # (Auto) 0.0 x10^3/uL (0.0-0.7) Basophils # (Auto) 0.1 x10^3/uL (0.0-0.2) Sodium Level 140 mmol/L (136-145) Potassium Level 4.0 mmol/L (3.5-5.1) Chloride Level 98 mmol/L (98-107) Carbon Dioxide Level 38 mmol/L (21-32) Anion Gap 4 (6-14) Blood Urea Nitrogen 24 mg/dL (7-20) Creatinine 0.6 mg/dL (0.6-1.0) Estimated GFR (Cockcroft-Gault) 102.0 Glucose Level 227 mg/dL (70-99) Calcium Level 8.5 mg/dL (8.5-10.1) Glucose (Fingerstick) 212 mg/dL (70-99) Microbiology 12/01/18 Blood Culture - Preliminary, Resulted NO GROWTH AFTER 3 DAYS 11/24/18 Urine Culture - Final, Complete 11/24/18 Urine Culture Result 1 (MELO) - Final, Complete Medications Current Medications Albuterol/ Ipratropium (Duoneb) 3 ml 1X ONCE NEB Last administered on 11/24/18at 12:22; Start 11/24/18 at 11:15; Stop 11/24/18 at 11:17; Status DC Ceftriaxone Sodium (Rocephin) 1 gm 1X ONCE IVP Last administered on 11/24/18at 13:00; Start 11/24/18 at 12:45; Stop 11/24/18 at 12:46; Status DC Albuterol/ Ipratropium (Duoneb) 3 ml 1X ONCE NEB Last administered on 11/24/18at 14:43; Start 11/24/18 at 12:45; Stop 11/24/18 at 12:46; Status DC Ondansetron HCl (Zofran) 4 mg PRN Q8HRS PRN IV NAUSEA/VOMITING; Start 11/24/18 at 12:45; Stop 11/25/18 at 12:44; Status DC Sodium Chloride 1,000 ml @ 100 mls/hr Q10H IV Last administered on 11/24/18at 22:39; Start 11/24/18 at 12:36; Stop 11/25/18 at 12:35; Status DC Albuterol/ Ipratropium (Duoneb) 3 ml RTQID NEB Last administered on 11/25/18at 15:27; Start 11/24/18 at 16:00; Stop 11/25/18 at 15:59; Status DC Lorazepam (Ativan Inj) 0.5 mg 1X ONCE IV Last administered on 11/24/18at 17:03; Start 11/24/18 at 16:30; Stop 11/24/18 at 16:31; Status DC Acetaminophen (Tylenol) 650 mg PRN Q6HRS PRN PO PAIN; Start 11/24/18 at 17:30 Ferrous Sulfate (Feosol) 325 mg BIDWMEALS PO Last administered on 12/04/18at 08:00; Start 11/24/18 at 17:30 Furosemide (Lasix) 20 mg DAILY PO Last administered on 12/04/18at 08:00; Start 11/25/18 at 09:00 Gabapentin (Neurontin) 300 mg BID PO Last administered on 12/04/18at 08:00; Start 11/24/18 at 21:00 Insulin Human Lispro (HumaLOG) 8 units TIDWMEALS SQ Last administered on 11/27/18at 13:10; Start 11/25/18 at 08:00; Stop 11/27/18 at 13:58; Status DC Metformin HCl (Glucophage) 1,000 mg BIDWMEALS PO Last administered on 12/04/18 08:00; Start 11/24/18 at 17:30 Metoprolol Succinate (Toprol Xl) 50 mg DAILY PO Last administered on 12/04/18 08:00; Start 11/25/18 at 09:00 Polyethylene Glycol (miraLAX PACKET) 17 gm DAILY PO Last administered on 12/03/18at 08:13; Start 11/25/18 at 09:00 Senna/Docusate Sodium (Senna Plus) 1 tab PRN BID PRN PO CONSTIPATION; Start 11/24/18 at 17:30 Simvastatin (Zocor) 10 mg HS PO Last administered on 12/03/18at 21:12; Start 11/24/18 at 21:00 Non-Formulary Medication (Albuterol Sulfate (Albuterol Sulfate Hfa Inhaler)) 2 puff Q4HRS INH ; Start 11/24/18 at 20:00; Status UNV Insulin Glargine (Lantus Syringe) 25 unit QHS SQ Last administered on 11/25/18at 20:46; Start 11/24/18 at 21:00; Stop 11/25/18 at 22:00; Status DC Non-Formulary Medication (Lurasidone Hcl (Latuda)) 60 mg HS PO ; Start 11/24/18 at 21:00; Stop 11/25/18 at 11:26; Status DC Diltiazem HCl (Cardizem Iv Push) 10 mg 1X ONCE IVP Last administered on 9at 18:49; Start 11/24/18 at 18:30; Stop 11/24/18 at 19:08; Status DC Diltiazem HCl 125 mg/Dextrose 125 ml @ 5 mls/hr CONT PRN IV . Last administered on 11/29/18at 19:47; Start 11/24/18 at 18:30; Stop 11/30/18 at 14:18; Status DC Methylprednisolone Sodium Succinate (SOLU-Medrol 40MG VIAL) 80 mg Q8HRS IV Last administered on 11/29/18at 05:29; Start 11/25/18 at 06:00; Stop 11/29/18 at 10:48; Status DC Methylprednisolone Sodium Succinate (SOLU-Medrol 40MG VIAL) 80 mg 1X ONCE IV Last administered on 11/24/18at 23:09; Start 11/24/18 at 23:00; Stop 11/24/18 at 23:01; Status DC Lorazepam (Ativan Inj) 0.5 mg PRN Q6HRS PRN IV ANXIETY / AGITATION Last administered on 11/26/18at 15:48; Start 11/25/18 at 02:45; Stop 11/26/18 at 19:33; Status DC Furosemide (Lasix) 20 mg 1X ONCE IVP Last administered on 11/25/18at 08:40; Start 11/25/18 at 07:30; Stop 11/25/18 at 07:31; Status DC Ceftriaxone Sodium (Rocephin) 1 gm Q24H IVP Last administered on 12/03/18at 11:36; Start 11/25/18 at 13:00 Lactobacillus Rhamnosus (Culturelle) 1 cap BID PO Last administered on 12/04/18at 08:00; Start 11/25/18 at 09:00 Lurasidone HCl (Latuda) 60 mg QHS PO Last administered on 12/03/18at 21:12; Start 11/25/18 at 21:00 Insulin Glargine (Lantus Syringe) 25 unit QHS SQ Last administered on 12/03/18at 21:17; Start 11/26/18 at 21:00 Insulin Human Lispro (HumaLOG) 0-7 UNITS TIDWMEALS SQ Last administered on 11/27/18at 13:10; Start 11/25/18 at 17:00; Stop 11/27/18 at 13:58; Status DC Dextrose (Dextrose 50%-Water Syringe) 12.5 gm PRN Q15MIN PRN IV SEE COMMENTS; Start 11/25/18 at 17:00; Stop 11/27/18 at 14:12; Status DC Dextrose 250 ml PRN Q15MIN PRN IV SEE COMMENTS; Start 11/25/18 at 17:00 Albuterol/ Ipratropium (Duoneb) 3 ml RTQID NEB Last administered on 12/04/18at 07:17; Start 11/25/18 at 20:00 Aspirin (Aspirin Rectal Supp) 300 mg 1X ONCE MI Last administered on 11/26/18at 10:36; Start 11/26/18 at 09:00; Stop 11/26/18 at 09:01; Status DC Aspirin (Ecotrin) 81 mg DAILYWBKFT PO ; Start 11/27/18 at 08:00; Stop 11/27/18 at 10:00; Status DC Magnesium Sulfate/ Dextrose 100 ml @ 100 mls/hr 1X ONCE IV Last administered on 11/26/18at 16:04; Start 11/26/18 at 15:15; Stop 11/26/18 at 16:14; Status DC Lorazepam (Ativan Inj) 2 mg PRN Q4HRS PRN IV ANXIETY / AGITATION Last administered on 11/28/18at 13:37; Start 11/26/18 at 19:30; Stop 11/29/18 at 10:48; Status DC Haloperidol Lactate (Haldol Inj) 5 mg 1X ONCE IVP Last administered on 11/26/18at 19:55; Start 11/26/18 at 19:30; Stop 11/26/18 at 19:38; Status DC Aspirin (Aspirin Rectal Supp) 150 mg DAILY MI Last administered on 11/27/18at 13:10; Start 11/27/18 at 10:30; Stop 11/28/18 at 08:03; Status DC Amino Acids/ Glycerin/ Electrolytes 1,000 ml @ 50 mls/hr Q20H IV Last administered on 11/27/18at 13:10; Start 11/27/18 at 12:15; Stop 11/28/18 at 14:00; Status DC Digoxin (Lanoxin) 500 mcg 1X ONCE IV Last administered on 11/27/18at 13:22; Start 11/27/18 at 13:00; Stop 11/27/18 at 13:07; Status DC Insulin Human Lispro (HumaLOG) 12 units TIDWMEALS SQ Last administered on 12/04/18at 08:00; Start 11/27/18 at 17:00 Insulin Human Lispro (HumaLOG) 0-7 UNITS TIDWMEALS SQ ; Start 11/27/18 at 17:00; Stop 11/27/18 at 16:34; Status DC Dextrose (Dextrose 50%-Water Syringe) 12.5 gm PRN Q15MIN PRN IV SEE COMMENTS; Start 11/27/18 at 14:00 Dextrose 250 ml PRN Q15MIN PRN IV SEE COMMENTS; Start 11/27/18 at 14:00; Status Cancel Metoprolol Tartrate (Lopressor Vial) 5 mg PRN Q5MIN PRN IVP TACHYCARDIA Last administered on 11/30/18at 07:52; Start 11/27/18 at 16:00 Enoxaparin Sodium (Lovenox Per Pharmacy Treatment Dosing) 1 each PRN DAILY PRN MC SEE COMMENTS; Start 11/27/18 at 16:00 Enoxaparin Sodium (Lovenox 100mg Syringe) 100 mg Q12HR SQ Last administered on 12/04/18at 08:06; Start 11/27/18 at 16:30 Insulin Human Lispro (HumaLOG) 0-9 UNITS TIDWMEALS SQ Last administered on 11/28/18at 12:19; Start 11/27/18 at 17:00; Stop 11/28/18 at 16:38; Status DC Acetaminophen (Tylenol Supp) 325 mg PRN Q6HRS PRN MI MILD PAIN / TEMP Last administered on 12/01/18at 09:11; Start 11/27/18 at 16:45 Sodium Polystyrene Sulfonate (Kayexalate) 30 gm 1X ONCE RC ; Start 11/28/18 at 12:00; Stop 11/28/18 at 12:01; Status DC Sodium Chloride 1,000 ml @ 60 mls/hr [id number] IV Last administered on 11/30/18at 21:23; Start 11/28/18 at 14:00; Stop 12/01/18 at 09:29; Status DC Insulin Human Lispro (HumaLOG) 0-9 UNITS QIDACHS SQ Last administered on 12/04/18at 08:00; Start 11/28/18 at 16:45 Ceftriaxone Sodium (Rocephin) 1 gm Q24H IVP ; Start 11/29/18 at 09:00; Status UNV Digoxin (Lanoxin) 250 mcg 1X ONCE IV Last administered on 11/29/18at 08:46; Start 11/29/18 at 08:30; Stop 11/29/18 at 08:31; Status DC Lorazepam (Ativan Inj) 0.5 mg PRN Q4HRS PRN IV ANXIETY / AGITATION Last administered on 11/30/18at 02:44; Start 11/29/18 at 11:00; Stop 11/30/18 at 11:45; Status DC Methylprednisolone Sodium Succinate (SOLU-Medrol 40MG VIAL) 40 mg Q8HRS IV Last administered on 12/04/18at 06:05; Start 11/29/18 at 11:00 Metoprolol Tartrate (Lopressor Vial) 10 mg Q6HRS IVP Last administered on 12/01/18at 05:57; Start 11/30/18 at 16:00; Stop 12/01/18 at 11:32; Status DC Lorazepam (Ativan Inj) 1 mg PRN Q6HRS PRN IV ANXIETY / AGITATION Last administered on 12/01/18at 01:50; Start 11/30/18 at 23:45; Stop 12/01/18 at 02:31; Status DC Clonidine HCl (Catapres Tts-1) 1 patch WEEKLY TD Last administered on 12/01/18at 11:34; Start 12/01/18 at 10:00 Amino Acids/ Glycerin/ Electrolytes 1,000 ml @ 60 mls/hr [id number] IV Last administered on 12/04/18at 03:54; Start 12/01/18 at 10:00 Metoprolol Tartrate (Lopressor Vial) 10 mg PRN Q6HRS PRN IVP 160/100, or hR > 130 bp allowi; Start 12/01/18 at 11:45 Haloperidol Lactate (Haldol Inj) 5 mg 1X ONCE IVP Last administered on 12/02/18at 02:45; Start 12/02/18 at 03:00; Stop 12/02/18 at 03:01; Status DC Active Scripts Active Proair Hfa Inhaler (Albuterol Sulfate) 8.5 Gm Hfa.aer.ad 1 Puff INH PRN Q6HRS PRN Proair Hfa Inhaler (Albuterol Sulfate) 8.5 Gm Hfa.aer.ad 2 Puff INH PRN Q6HRS PRN Colace 2-in-1 Tablet (Sennosides/Docusate Sodium) 1 Each Tablet 1 Each PO BID PRN Glucophage (Metformin Hcl) 500 Mg Tablet 1,000 Mg PO BIDWMEALS Reported Lasix (Furosemide) 20 Mg Tablet 20 Mg PO DAILY Metoprolol Succinate ( Xl ) (Metoprolol Succinate) 25 Mg Tab.er.24h 50 Mg PO DAILY Acetaminophen 650 Mg/20.3 Ml Solution 650 Mg FT PRN PRN Miralax (Polyethylene Glycol 3350) 17 Gm Powd.pack 1 Pkt PO DAILY Ferrous Sulfate 325 Mg Tablet 325 Mg PO BID Seroquel (Quetiapine Fumarate) 200 Mg Tablet 200 Mg PO HS Melatonin 3 Mg Tablet 3 Mg PO HS Simvastatin 10 Mg Tablet 10 Mg PO HS Symbicort 160-4.5 Mcg Inhaler (Budesonide/Formoterol Fumarate) 10.2 Gm Hfa.aer.ad 2 Puff IH BID Albuterol Sulfate Hfa Inhaler (Albuterol Sulfate) 8.5 Gm Hfa.aer.ad 2 Puff INH Q4HRS Vitals/I & O Vital Sign - Last 24 Hours 12/03/18 12/03/18 12/03/18 12/03/18 11:00 12:02 15:00 15:39 Temp 98.0 98.0 98.0 98.0 98.0 98.0 Pulse 89 78 78 Resp 18 8 B/P (MAP) 110/68 (82) 122/72 (89) 122/72 (89) Pulse Ox 93 93 93 O2 Delivery Room Air Nasal Cannula Nasal Cannula Nasal Cannula O2 Flow Rate 2.0 2.0 2.0 12/03/18 12/03/18 12/03/18 12/03/18 16:20 19:06 19:52 21:00 Temp 98.4 98.4 B/P (MAP) 122/33 (62) Pulse Ox 92 94 93 O2 Delivery Nasal Cannula Nasal Cannula Nasal Cannula Nasal Cannula O2 Flow Rate 2.0 2.0 2.0 3.0 12/03/18 12/04/18 12/04/18 12/04/18 23:00 03:00 07:00 07:19 Temp 98.5 98.6 98.0 98.5 98.6 98.0 Pulse 109 98 68 Resp 24 18 20 B/P (MAP) 111/56 (74) 120/60 (80) 118/77 (91) Pulse Ox 95 97 95 94 O2 Delivery Nasal Cannula Nasal Cannula Nasal Cannula Nasal Cannula O2 Flow Rate 2.0 2.0 2.0 2.0 12/04/18 08:00 Pulse 68 B/P (MAP) 118/77 Intake and Output 12/03/18 12/03/18 12/04/18 14:59 22:59 06:59 Intake Total 240 ml 120 ml 500 ml Output Total 5 ml Balance 240 ml 115 ml 500 ml TOD KAISER MD Dec 04, 2018 08:38
--- NOTE | 2018-12-04 09:38 | PDOC ---
[facility] PROGRESS NOTE Chief Complaint Chief Complaint Altered mental status, likely med related COPD Exacerbation Severe hypercapnic resp failure, slow to improve, BIPAP Uncontrolled DM Depression GERD COPD Tobacco Abuse HX Obesity BMI 44 Mental retardation DNR History of Present Illness History of Present Illness 12/02/18 Seen and evaluated pt at bedside, resting with NAD Family member present today Pt off bipap upon entry Pt demonstrated ability to swallow pudding; RN states she successfully completed bedside swallowing earlier as well Exhibits mild confusion- says the current year is 2019 but appears oriented to self and place 12/03/18 Seen and evaluated pt at bedside, resting with NAD Family member (sister) present today Pt off bipap upon entry Pt is oriented to self and place, said the year was 201812/04/18 Seen and evaluated pt at beside, resting with NAD Pt is oriented to self and place, in good spirits Vitals/I&O Vitals/I&O: Vital Signs Date Time Temp Pulse Resp B/P (MAP) Pulse Ox O2 Delivery O2 Flow Rate FiO2 12/04/18 08:00 68 118/77 12/04/18 07:19 94 Nasal Cannula 2.0 12/04/18 07:00 98.0 20 98.0 I & O 12/03/18 12/03/18 12/04/18 14:59 22:59 06:59 Intake Total 240 ml 120 ml 500 ml Output Total 5 ml Balance 240 ml 115 ml 500 ml Physical Exam Physical Exam: Eyes: PERRLA, EOMI, conjunctiva normal, no discharge. [] Neck: Normal range of motion, no tenderness, supple, no stridor. [] Cardiovascular: Sinus tachycardia, regular rhythm, no murmur [] Lungs & Thorax: Bilateral breath sounds equal but wheezing. ] Abdomen: Bowel sounds normal, soft, no tenderness, no masses, no pulsatile masses. [] Skin: Warm, dry, no erythema, no rash. [] Back: No tenderness, no CVA tenderness. [] Extremities: No tenderness, no cyanosis, no clubbing, General: Alert, Oriented X3, Cooperative, No acute distress Heart: Regular rate, Normal S1, Normal S2 Lungs: Clear, Other (Dimished in bases ) Abdomen: Normal bowel sounds, Soft, No tenderness Extremities: No clubbing, No cyanosis, No tenderness/swelling Skin: No rashes, No significant lesion Labs Labs: Laboratory Tests Test 12/03/18 11:33 12/03/18 11:42 12/03/18 16:27 12/03/18 21:11 Glucose (Fingerstick) 370 mg/dL (70-99) 352 mg/dL (70-99) 239 mg/dL (70-99) 253 mg/dL (70-99) Test 12/04/18 05:30 12/04/18 06:58 White Blood Count 11.2 x10^3/uL (4.0-11.0) Red Blood Count 4.06 x10^6/uL (3.50-5.40) Hemoglobin 9.9 g/dL (12.0-15.5) Hematocrit 31.8 % (36.0-47.0) Mean Corpuscular Volume 78 fL (79-100) Mean Corpuscular Hemoglobin 24 pg (25-35) Mean Corpuscular Hemoglobin Concent 31 g/dL (31-37) Red Cell Distribution Width 15.8 % (11.5-14.5) Platelet Count 89 x10^3/uL (140-400) Neutrophils (%) (Auto) 91 % (31-73) Lymphocytes (%) (Auto) 5 % (24-48) Monocytes (%) (Auto) 4 % (0-9) Eosinophils (%) (Auto) 0 % (0-3) Basophils (%) (Auto) 1 % (0-3) Neutrophils # (Auto) 10.3 x10^3/uL (1.8-7.7) Lymphocytes # (Auto) 0.5 x10^3/uL (1.0-4.8) Monocytes # (Auto) 0.4 x10^3/uL (0.0-1.1) Eosinophils # (Auto) 0.0 x10^3/uL (0.0-0.7) Basophils # (Auto) 0.1 x10^3/uL (0.0-0.2) Sodium Level 140 mmol/L (136-145) Potassium Level 4.0 mmol/L (3.5-5.1) Chloride Level 98 mmol/L (98-107) Carbon Dioxide Level 38 mmol/L (21-32) Anion Gap 4 (6-14) Blood Urea Nitrogen 24 mg/dL (7-20) Creatinine 0.6 mg/dL (0.6-1.0) Estimated GFR (Cockcroft-Gault) 102.0 Glucose Level 227 mg/dL (70-99) Calcium Level 8.5 mg/dL (8.5-10.1) Glucose (Fingerstick) 212 mg/dL (70-99) Review of Systems Review of Systems: No wheezing No cyanosis No nausea No vomiting Assessment and Plan Assessmemt and Plan Problems Medical Problems: (1) Acute bronchitis Status: Acute (2) Acute diastolic CHF (congestive heart failure) Status: Acute (3) Altered mental status Status: Acute (4) Atrial fibrillation with RVR Status: Acute (5) COPD (chronic obstructive pulmonary disease) Status: Chronic (6) COPD exacerbation Status: Acute (7) hypercapnia Status: Acute (8) GERD (gastroesophageal reflux disease) Status: Chronic (9) HLD (hyperlipidemia) Status: Chronic (10) HTN (hypertension) Status: Chronic (11) Hypercapnia Status: Acute (12) Hypercapnic respiratory failure Status: Acute (13) Uncontrolled diabetes mellitus Status: Chronic (14) UTI (urinary tract infection) Status: Acute Assessment Altered mental status, likely med related COPD Exacerbation Severe hypercapnic resp failure, slow to improve Uncontrolled DM Depression GERD COPD Tobacco Abuse HX Obesity BMI 44 Cognitive disability Plan Bipap PRN PO intake Labs Home meds Discharge after discussing with pulmonary Comment Review of Relevant I have reviewed the following items ana (where applicable) has been applied. PARTHA EPPS III, DO Dec 04, 2018 09:38
[2018-12-04 10:07] LABS: % BANDS 11 % (0-9); % LYMPHS 2 % (24-48); % MONOS 6 % (0-10); % SEGS 81 % (35-66)
[2018-12-04 10:15] LABS: ANISOCYTOSIS SLIGHT; HYPOCHROMIA SLIGHT; PLT ESTIMATE DECREASED (ADEQUATE)
[2018-12-04 10:16] LABS: MICROCYTOSIS SLIGHT
[2018-12-04 11:00] VITALS: BP 112/77
--- NOTE | 2018-12-04 11:21 | SNU/HH DC ---
DISCHARGE ORDERS DISCHARGE INFORMATION: FINAL DIAGNOSIS Problems Medical Problems: (1) Acute bronchitis Status: Acute (2) Acute diastolic CHF (congestive heart failure) Status: Acute (3) Altered mental status Status: Acute (4) Atrial fibrillation with RVR Status: Acute (5) COPD (chronic obstructive pulmonary disease) Status: Chronic (6) COPD exacerbation Status: Acute (7) hypercapnia Status: Acute (8) GERD (gastroesophageal reflux disease) Status: Chronic (9) HLD (hyperlipidemia) Status: Chronic (10) HTN (hypertension) Status: Chronic (11) Hypercapnia Status: Acute (12) Hypercapnic respiratory failure Status: Acute (13) Uncontrolled diabetes mellitus Status: Chronic (14) UTI (urinary tract infection) Status: Acute CONDITION ON DISCHARGE: Stable CODE STATUS: Code Status: Full CUSTODIAL: SNF STAY <30 DAYS: Yes HOSPICE: HOSPICE: No HOSPICE EVAL & TREAT: No LTAC: ADMIT TO LTAC: No POST DISCHARGE ORDERS: ACTIVITY ORDERS: Resume previous activity, Activity as tolerated WEIGHT BEARING STATUS: As tolerated DIET AFTER DISCHARGE: ADA CHECKS AFTER DISCHARGE: CHECKS AFTER DISCHARGE: Check blood press - daily, Check blood sugar, ac/hs, Check your Temp as needed TREATMENT/EQUIPMENT ORDERS: ADAPTIVE EQUIPMENT NEEDED: None Physical Therapy For: Evalulation/Treatment Occupational Therapy For: Evaluation/Treatment Speech Language Pathology For: Evaluation/Treatment DISCHARGE MEDICATIONS: Home Meds Active Scripts Albuterol Sulfate (PROAIR HFA INHALER) 8.5 Gm Hfa.aer.ad, 1 PUFF INH PRN Q6HRS PRN for SHORTNESS OF BREATH, #1 INHALER 0 Refills Prov:JILLIAN TILLMAN MD 10/13/18 Albuterol Sulfate (PROAIR HFA INHALER) 8.5 Gm Hfa.aer.ad, 2 PUFF INH PRN Q6HRS P RN for SHORTNESS OF BREATH, #1 INHALER 0 Refills Prov:JAMES MÉNDEZ DO 03/03/18 Sennosides/Docusate Sodium (Colace 2-in-1 Tablet) 1 Each Tablet, 1 EACH PO BID PRN for CONSTIPATION, #20 TAB Prov:SHAUN MAO DO 01/02/18 Metformin Hcl (GLUCOPHAGE) 500 Mg Tablet, 1000 MG PO BIDWMEALS, #60 Prov:SHAUN MARTÍNEZ MD 05/20/15 Reported Medications Furosemide (LASIX) 20 Mg Tablet, 20 MG PO DAILY for HTN, TAB 11/24/18 Metoprolol Succinate (METOPROLOL SUCCINATE ( XL )) 25 Mg Tab.er.24h, 50 MG PO DAILY for FOR HYPERTENSION, #30 TAB 0 Refills 11/24/18 Acetaminophen (Acetaminophen) 650 Mg/20.3 Ml Solution, 650 MG FT PRN PRN for PAIN, MISC 11/24/18 Polyethylene Glycol 3350 (MIRALAX) 17 Gm Powd.pack, 1 PKT PO DAILY for Constipation, PKT 11/24/18 Ferrous Sulfate (FERROUS SULFATE) 325 Mg Tablet, 325 MG PO BID for Anemia, TAB 11/24/18 Quetiapine Fumarate (SEROQUEL) 200 Mg Tablet, 200 MG PO HS for insomnia, TAB 11/24/18 Melatonin (MELATONIN) 3 Mg Tablet, 3 MG PO HS for Insomnia, TAB 11/24/18 Simvastatin (SIMVASTATIN) 10 Mg Tablet, 10 MG PO HS for FOR CHOLESTEROL, #30 TAB 0 Refills 10/13/14 Budesonide/Formoterol Fumarate (SYMBICORT 160-4.5 MCG INHALER) 10.2 Gm Hfa.aer.ad, 2 PUFF IH BID, #10.6 GM 3 Refills 08/13/14 Albuterol Sulfate (ALBUTEROL SULFATE HFA INHALER) 8.5 Gm Hfa.aer.ad, 2 PUFF INH Q4HRS for FOR ASTHMA, INHALER 0 Refills 08/13/14 PARTHA EPPS III DO Dec 04, 2018 11:21
[2018-12-04] MEDS: cefTRIAXone IV Push 1 GM VIAL. IVP SCH (11:57)
--- NOTE | 2018-12-04 13:57 | NUR ---
SS following up with discharge planning. Pt's sister, Martha, , requesting pt return to [facility], ; fax [phone], for SNU/LTC. Discharge orders received. SS spoke with SW at [facility] and was notified that pt could return. SS phoned and faxed discharge orders to [facility]. Pt will discharge today and return to [facility]. Pt, pt's sister, and pt's RN notified. [facility] to provide transportation. SS currently awaiting transportation time from [facility].
--- NOTE | 2018-12-04 14:16 | NUR ---
SS following up with discharge planning. Alma Delia Barba contacted SS and stated that pt will be transported to facility at 1600. Pt's RN, pt, and pt's sister notified.
[2018-12-04 14:57] VITALS: BP 94/58
--- NOTE | 2018-12-05 09:15 | DS ---
DATE OF DISCHARGE: 12/04/2018 ADMISSION DIAGNOSES: Respiratory failure secondary to chronic obstructive pulmonary disease and severe metabolic encephalopathy. DISCHARGE DIAGNOSES: Resolving metabolic encephalopathy and resolving respiratory failure. HOSPITAL COURSE: The patient is a pleasant 58-year-old female, who is cognitively challenged. She lives at a facility. Basically, she has COPD; it is near end-stage. She presented with respiratory failure. We gave her steroids, breathing treatments and oxygen. She required BiPAP. We consulted Pulmonary. Over the next few days, we got her better. When we saw her yesterday, she was up walking, requesting to go home. She knew what year it was. We discharged back to her facility in [place] at the Skilled Unit. DISPOSITION: Skilled Unit. ACTIVITY: As tolerated. DIET: Low sodium. MEDICATIONS: Please see MRAD. TOTAL TIME: 35 minutes. NAKULL Brice EPPS DO DR: BRANDY/nishi JOB#: [id number] / [id number]
== END 2018-12-04 16:08 | disposition home or self-care (01) | DRG 189 ==
LOC: ER 10:36 → 2 SOUTH 12:37 → 4 NORTH 11-30 16:13
PROVIDERS: ADMIT Family Medicine; ATTEND Family Medicine
PROC: 5A09457 Assistance with Respiratory Ventilation, 24-96 Consecutive Hours, Continuous Positive Airway Pressure (ICD-10-PCS; principal; 2018-11-24)
PROC: 5A09357 Assistance with Respiratory Ventilation, Less than 24 Consecutive Hours, Continuous Positive Airway Pressure (ICD-10-PCS; 2018-12-02)
DX: J96.21 Acute and chronic respiratory failure with hypoxia (principal); A41.9 Sepsis, unspecified organism; I50.31 Acute diastolic (congestive) heart failure; I50.33 Acute on chronic diastolic (congestive) heart failure; G92 Toxic encephalopathy; J44.0 Chronic obstructive pulmonary disease with (acute) lower respiratory infection; J44.1 Chronic obstructive pulmonary disease with (acute) exacerbation; Z68.41 Body mass index [BMI] 40.0-44.9, adult; N39.0 Urinary tract infection, site not specified; J96.22 Acute and chronic respiratory failure with hypercapnia; I48.91 Unspecified atrial fibrillation; E11.65 Type 2 diabetes mellitus with hyperglycemia; E66.9 Obesity, unspecified; E78.00 Pure hypercholesterolemia, unspecified; E78.5 Hyperlipidemia, unspecified; F03.90 Unspecified dementia, unspecified severity, without behavioral disturbance, psychotic disturbance, mood disturbance, and anxiety; F20.9 Schizophrenia, unspecified; F31.9 Bipolar disorder, unspecified; F79 Unspecified intellectual disabilities; H91.90 Unspecified hearing loss, unspecified ear; I11.0 Hypertensive heart disease with heart failure; J20.9 Acute bronchitis, unspecified; K21.9 Gastro-esophageal reflux disease without esophagitis; Z66 Do not resuscitate; Z79.4 Long term (current) use of insulin; Z82.49 Family history of ischemic heart disease and other diseases of the circulatory system; Z90.710 Acquired absence of both cervix and uterus; Z87.11 Personal history of peptic ulcer disease; F41.9 Anxiety disorder, unspecified; G47.00 Insomnia, unspecified; K80.20 Calculus of gallbladder without cholecystitis without obstruction; M19.90 Unspecified osteoarthritis, unspecified site; T42.4X5A Adverse effect of benzodiazepines, initial encounter
CPT/HCPCS: 36415; 36600; 70450; 71045; 80048; 80053; 80307; 81001; 82140; 82274; 82805; 82962; 83605; 83735; 83880; 84443; 84484; 85007; 85025; 85610; 85730; 87040; 87086; 87804; 93005; 93306; 93970; 94640; 94660; 94760; 96374; J0696; J1160; J1630; J1650; J1815; J1940; J2060; J2920; J3475; J3490; J7030; J7620; 92526; 92610; 97530; 97535; 99285-25; G0378

== ENCOUNTER 2018-12-12 08:36 | Inpatient (IN) | payer OTHER ==
[~2018-12-12] VITALS: Ht 162.6 cm; Wt 94.6 kg
[~2018-12-12 08:36] MED LIST changes: +ACETAMINOP650 MG/201 FT; +FERR325T14 PO; +FURO-69 PO; +INSU100V6 SQ; +LURA60TA PO; +MELA3TAB56 PO; +METO-239 PO; +POLY17PO29 PO; +QUET200T4 PO; +TRAZ150T49 PO
[2018-12-12] MEDS ORDERED: dilTIAZem INJ 125 MG in IV DEXTROSE 5% 100ML 100 ML IV PRN (08:45)
--- NOTE | 2018-12-12 08:54 | PHYS DOC ---
Past Medical History Past Medical History: Asthma, Bipolar, Depression, Diabetes-Type II, High Cholesterol, Schizophrenia Additional Past Medical Histor: PYLEONEPHRITIS, INSOMNIA, MR Past Surgical History: No Surgical History Alcohol Use: None Drug Use: None Adult General Chief Complaint Chief Complaint: SHORTNESS OF BREATH [facility] HPI Patient is a 58-year-old female, who is somewhat mentally challenged, was a past history of atrial fibrillation, COPD, and other health problems, who arrives in the emergency department via EMS. She was sent to the emergency department for increasing difficulty breathing, which began over the past day or so. According to EMS report, the nursing facility administered a DuoNeb but did have difficulty eating the patient's oxygen saturation above 90%, she wears 2 L of oxygen chronically. EMS placed the patient on 6 L of oxygen via nasal cannula which resulted in oxygen saturation 100%. Her oxygen flow is decreased to 3 L/m upon arrival with resultant oxygen saturations in the mid 90s. Patient denies any new pain. She is noted to be in rapid atrial fibrillation. She has been hospitalized with similar presentations in the past, most recently earlier this month, due to a COPD exacerbation. There are no alleviating or exacerbating factors to her symptoms. Review of Systems Review of Systems Constitutional: Denies fever or chills [] Eyes: Denies change in visual acuity, redness, or eye pain [] HENT: Denies nasal congestion or sore throat [] Respiratory: Positive cough productive of white sputum and shortness of breath.[] Cardiovascular: No additional information not addressed in HPI [] GI: Denies abdominal pain, nausea, vomiting, bloody stools or diarrhea [] : Denies dysuria or hematuria [] Musculoskeletal: Denies back pain or joint pain [] Integument: Denies rash or skin lesions [] Neurologic: Denies headache, focal weakness or sensory changes [] Endocrine: Denies polyuria or polydipsia [] All other systems were reviewed and found to be within normal limits, except as documented in this note. Current Medications Current Medications Current Medications Medications (Trade) Dose Ordered Sig/[place] Start Time Stop Time Status Last Admin Dose Admin Albuterol/ Ipratropium (Duoneb) 3 ml 1X ONCE 12/12/18 09:15 12/12/18 09:16 DC 12/12/18 09:16 3 ML Diltiazem HCl (Cardizem Iv Push) 10 mg 1X ONCE 12/12/18 09:15 12/12/18 09:16 DC 12/12/18 09:52 10 MG Diltiazem HCl 125 mg/Dextrose 125 ml @ 5 mls/hr CONT PRN 12/12/18 08:45 12/12/18 09:51 5 MLS/HR Methylprednisolone Sodium Succinate (SOLU-Medrol 125MG VIAL) 125 mg 1X ONCE 12/12/18 09:15 12/12/18 09:16 DC 12/12/18 09:52 125 MG Allergies Allergies Allergies Coded Allergies Type Severity Reaction Last Updated Verified No Known Drug Allergies 03/03/13 No Physical Exam Physical Exam PHYSICAL EXAM: CONSTITUTIONAL: Well developed, well nourished HEAD: normocephalic, atraumatic EENT: PERRL, EOMI. Conjunctivae normal color, sclerae non-icteric; moist mucous membranes. NECK: Supple, non-tender; no meningismus. LUNGS: Moderate increased work of breathing, with scattered exudate or rhonchi, no wheezes or rales. HEART: Rapid, irregularly irregular rhythm, no murmur CHEST: No deformity; non-tender ABDOMEN: The abdomen is soft, and non-tender, no masses or bruits. EXTREM: Normal ROM; no deformity, no calf tenderness. Normal pulses palpable in all extremities. There is 1+ bilateral pitting pedal edema. SKIN: No rash; no diaphoresis NEURO: Alert; normal speech and cognition; CN's grossly intact; strength grossly intact without focal deficit. BACK: No CVA TTP. Current Patient Data Vital Signs Vital Signs Date Time Temp Pulse Resp B/P (MAP) Pulse Ox O2 Delivery O2 Flow Rate FiO2 12/12/18 09:52 151 134/62 12/12/18 09:16 93 Nasal Cannula 3.0 Lab Values Laboratory Tests Test 12/12/18 09:10 12/12/18 09:30 O2 Saturation 94 % (92-99) Arterial Blood pH 7.40 (7.35-7.45) Arterial Blood pCO2 at Patient Temp 66 mmHg (35-46) *H Arterial Blood pO2 at Patient Temp 72 mmHg (65-108) Arterial Blood HCO3 40 mmol/L (21-28) H Arterial Blood Base Excess 13 mmol/L (-3-3) H FiO2 32 White Blood Count 10.2 x10^3/uL (4.0-11.0) Red Blood Count 4.06 x10^6/uL (3.50-5.40) Hemoglobin 10.0 g/dL (12.0-15.5) L Hematocrit 32.8 % (36.0-47.0) L Mean Corpuscular Volume 81 fL (79-100) Mean Corpuscular Hemoglobin 25 pg (25-35) Mean Corpuscular Hemoglobin Concent 31 g/dL (31-37) Red Cell Distribution Width 16.9 % (11.5-14.5) H Platelet Count 158 x10^3/uL (140-400) Neutrophils (%) (Auto) 86 % (31-73) H Lymphocytes (%) (Auto) 8 % (24-48) L Monocytes (%) (Auto) 5 % (0-9) Eosinophils (%) (Auto) 1 % (0-3) Basophils (%) (Auto) 1 % (0-3) Neutrophils # (Auto) 8.8 x10^3/uL (1.8-7.7) H Lymphocytes # (Auto) 0.8 x10^3/uL (1.0-4.8) L Monocytes # (Auto) 0.5 x10^3/uL (0.0-1.1) Eosinophils # (Auto) 0.1 x10^3/uL (0.0-0.7) Basophils # (Auto) 0.1 x10^3/uL (0.0-0.2) Platelet Estimate Pending Sodium Level 140 mmol/L (136-145) Potassium Level 3.9 mmol/L (3.5-5.1) Chloride Level 99 mmol/L (98-107) Carbon Dioxide Level 40 mmol/L (21-32) H Anion Gap 1 (6-14) L Blood Urea Nitrogen 7 mg/dL (7-20) Creatinine 0.5 mg/dL (0.6-1.0) L Estimated GFR (Cockcroft-Gault) 125.9 BUN/Creatinine Ratio 14 (6-20) Glucose Level 166 mg/dL (70-99) H Calcium Level 9.0 mg/dL (8.5-10.1) Magnesium Level 1.4 mg/dL (1.8-2.4) L Total Bilirubin 0.6 mg/dL (0.2-1.0) Aspartate Amino Transferase (AST) 16 U/L (15-37) Alanine Aminotransferase (ALT) 54 U/L (14-59) Alkaline Phosphatase 43 U/L (46-116) L Troponin I Quantitative < 0.017 ng/mL (0.000-0.055) RZ-Jsv-V-Type Natriuretic Peptide 1930 pg/mL (0-124) H Total Protein 6.1 g/dL (6.4-8.2) L Albumin 3.1 g/dL (3.4-5.0) L Albumin/Globulin Ratio 1.0 (1.0-1.7) Laboratory Tests 12/12/18 09:30 Laboratory Tests 12/12/18 09:30 EKG EKG Atrial fibrillation at a rate of 170 bpm, normal axis, normal intervals, nonspecific ST/T changes without acute ischemic changes noted.[] Radiology/Procedures Radiology/Procedures [PROCEDURE: PORTABLE CHEST 1V PORTABLE CHEST 1V Clinical indications: Shortness of breath. Comparison: November 30, 2018. Findings: Small left-sided pleural effusion is seen which has increased in size associated compressive atelectasis or left lung base infiltrate. There has been improvement in the right-sided pleural effusion. Perihilar haziness seen previously which may have represented pulmonary edema has resolved. Cephalization of pulmonary flow seen previously has resolved. No pneumothorax is seen. The heart size and mediastinum are stable. Impression: Increase in small left-sided pleural effusion. There is associated compressive atelectasis or left lung base infiltrate. Improvement in right-sided pleural effusion and resolution of perihilar pulmonary edema and cephalization of pulmonary flow seen previously.] Course & Med Decision Making Course & Med Decision Making Pertinent Labs and Imaging studies reviewed. (See chart for details) []10:40 AM:The patient's condition remains stable. I spoke with the hospitalist, who accepted the patient to the hospital for further evaluation and treatment. Heart rate still in the 130s. Cardizem being titrated up. Blood pressure remained stable. Patient will be given antibiotics. Cultures will be obtained. CRITICAL CARE TIME: 45 Minutes, excluding any procedures and care of other patients. Dragon Disclaimer Dragon Disclaimer This electronic medical record was generated, in whole or in part, using a voice recognition dictation system. Departure Departure Impression: Primary Impression: Atrial fibrillation with RVR Additional Impression: COPD exacerbation Disposition: ADMITTED INPATIENT Admitting Physician: ANIYAH Condition: STABLE Referrals: MARIELY DAS (PCP) Problem Qualifiers JEFFERY CALLES MD Dec 12, 2018 08:54
[2018-12-12] MEDS ORDERED: dilTIAZem IV PUSH 25 MG/5 ML VIAL IVP ONE (09:15)
[2018-12-12] MEDS ORDERED: IPRATRPIUM/ALBUTEROL 0.5/2.5MG 3 ML NEBU. NEB ONE ×2 (09:15→12:45)
[2018-12-12] MEDS ORDERED: methylPREDNISolone SOD SUCC PF 125 MG/2 ML VIAL. IV ONE (09:15)
[2018-12-12 09:20] LABS: BASE EXCESS ABG 13 mmol/L (-3-3); HCO3 ABG 40 mmol/L (21-28); PO2 ABG 72 mmHg (65-108); SAT O2 ABG 94 % (92-99)
[2018-12-12 09:23] LABS: FIO2 ABG 32; PCO2 ABG 66 mmHg (35-46)
--- NOTE | 2018-12-12 09:24 | RAD ---
PORTABLE CHEST 1V Clinical indications: Shortness of breath. Comparison: November 30, 2018. Findings: Small left-sided pleural effusion is seen which has increased in size associated compressive atelectasis or left lung base infiltrate. There has been improvement in the right-sided pleural effusion. Perihilar haziness seen previously which may have represented pulmonary edema has resolved. Cephalization of pulmonary flow seen previously has resolved. No pneumothorax is seen. The heart size and mediastinum are stable. Impression: Increase in small left-sided pleural effusion. There is associated compressive atelectasis or left lung base infiltrate. Improvement in right-sided pleural effusion and resolution of perihilar pulmonary edema and cephalization of pulmonary flow seen previously. Electronically signed by: Rui Nj MD (12/12/2018 9:21 AM) [id number]
[2018-12-12 10:00] LABS: CREATININE 0.5 mg/dL (0.6-1.0); GFR 125.9; POTASSIUM 3.9 mmol/L (3.5-5.1)
[2018-12-12 10:04] LABS: BASO # 0.1 x10^3/uL (0.0-0.2); BASO % 1 % (0-3); EOS # 0.1 x10^3/uL (0.0-0.7); EOS % 1 % (0-3); HEMATOCRIT 32.8 % (36.0-47.0); LYMPH # 0.8 x10^3/uL (1.0-4.8); LYMPH % 8 % (24-48); MEAN CORPUSCULAR HEMOGLOBIN 25 pg (25-35); MEAN CORPUSCULAR HGB CONC 31 g/dL (31-37); MEAN CORPUSCULAR VOLUME 81 fL (79-100); MONO # 0.5 x10^3/uL (0.0-1.1); MONO % 5 % (0-9); NEUT # 8.8 x10^3/uL (1.8-7.7); NEUT % 86 % (31-73); PLATELET COUNT 158 x10^3/uL (140-400); RED BLOOD COUNT 4.06 x10^6/uL (3.50-5.40); RED CELL DISTRIBUTION WIDTH 16.9 % (11.5-14.5); WHITE BLOOD COUNT 10.2 x10^3/uL (4.0-11.0)
[2018-12-12 10:05] LABS: ALBUMIN 3.1 g/dL (3.4-5.0); MAGNESIUM 1.4 mg/dL (1.8-2.4); TOTAL BILIRUBIN 0.6 mg/dL (0.2-1.0); TOTAL PROTEIN 6.1 g/dL (6.4-8.2)
[2018-12-12 10:51] LABS: % BANDS 3 % (0-9); % LYMPHS 3 % (24-48); % MONOS 4 % (0-10); % SEGS 90 % (35-66); HYPOCHROMIA SLIGHT; PLT ESTIMATE ADEQUATE (ADEQUATE)
[2018-12-12 10:52] LABS: ANISOCYTOSIS PRESENT
[2018-12-12] MEDS ORDERED: PIPERACILLIN/TAZOBACTAM 3.375 GM in IV NORMAL SALINE 50ML 50 ML IV ONE (11:00)
[2018-12-12] MEDS ORDERED: VANCOMYCIN 1GM IVPB FOR OMNI 250 ML IV ONE (11:00)
[2018-12-12 11:17] LABS: PROTHROMBIN TIME PATIENT 11.9 SEC (11.7-14.0)
--- NOTE | 2018-12-12 12:09 | PDOC2 ---
JETT RIOS APARTMENT RENTAL CLERK 12/12/18 1209: CARDIAC CONSULT DATE OF CONSULT Date of Consult DATE: 12/12/18 TIME: 12:01 REASON FOR CONSULT Reason for Consult: AFIB REFERRING PHYSICIAN Referring Physician: Dr. Velazquez SOURCE Source: Chart review, Patient HISTORY OF PRESENT ILLNESS HISTORY OF PRESENT ILLNESS This is a 58 female, with a h/o MR, who presented from nursing facility secondary to shortness of breath. Was noted in AFIB with RVR upon arrival to the ED, which prompted this consult. Cardizem gtt initiate, patient converted back to NSR with rate in the 90's. Patient reports she has been short of breath for "awhile". Unable to specify a time frame. Has had some mild LE edema. Denies any chest pain, palpitations, or nausea/vomiting. Positive for orthopnea. Reports compliance with medications. PAST MEDICAL HISTORY Cardiovascular: AFIB, CHF, HTN, Hyperlipidemia Pulmonary: COPD CENTRAL NERVOUS SYSTEM: Other (MR) Psych: Schizophrenia Musculoskeletal: Osteoarthritis Endocrine: Diabetes PAST SURGICAL HISTORY Past Surgical History: Appendectomy, Tonsillectomy, Hysterectomy FAMILY HISTORY Family History: Hypertension SOCIAL HISTORY Smoke: Quit ALCOHOL: none Drugs: None CURRENT MEDICATIONS CURRENT MEDICATIONS Current Medications Medications (Trade) Dose Ordered Sig/[place] Route PRN Reason Start Time Stop Time Status Last Admin Dose Admin Albuterol/ Ipratropium (Duoneb) 3 ml 1X ONCE NEB 12/12/18 09:15 12/12/18 09:16 DC 12/12/18 09:16 Methylprednisolone Sodium Succinate (SOLU-Medrol 125MG VIAL) 125 mg 1X ONCE IV 12/12/18 09:15 12/12/18 09:16 DC 12/12/18 09:52 Diltiazem HCl (Cardizem Iv Push) 10 mg 1X ONCE IVP 12/12/18 09:15 12/12/18 09:16 DC 12/12/18 09:52 Diltiazem HCl 125 mg/Dextrose 125 ml @ 5 mls/hr CONT PRN IV SEE I/O RECORD 12/12/18 08:45 12/12/18 09:51 ALLERGIES ALLERGIES: Coded Allergies: No Known Drug Allergies (Unverified , 03/03/13) ROS Review of System 14 point ROS conducted with pertinent positives noted above in HPI. PHYSICAL EXAM General: Alert, Cooperative, mild distress, Other ([place]) HEENT: Atraumatic, Mucous membr. moist/pink Lungs: Other (coarse lung sounds throughout ) Heart: Regular rate, Normal S1, Normal S2, No murmurs Abdomen: Soft, No tenderness Extremities: Normal pulses, Other (1-2+ bilateral LE edema ) Neuro: Normal speech, Sensation intact Psych/Mental Status: Mood NL, Other (MR) MUSCULOSKELETAL: No joint tenderness VITALS/I&O VITALS/I&O: Vital Signs Date Time Temp Pulse Resp B/P (MAP) Pulse Ox O2 Delivery O2 Flow Rate FiO2 12/12/18 09:52 151 134/62 12/12/18 09:16 93 Nasal Cannula 3.0 LABS Lab: Laboratory Tests Test 12/12/18 09:10 12/12/18 09:30 O2 Saturation 94 % (92-99) Arterial Blood pH 7.40 (7.35-7.45) Arterial Blood pCO2 at Patient Temp 66 mmHg (35-46) *H Arterial Blood pO2 at Patient Temp 72 mmHg (65-108) Arterial Blood HCO3 40 mmol/L (21-28) H Arterial Blood Base Excess 13 mmol/L (-3-3) H FiO2 32 White Blood Count 10.2 x10^3/uL (4.0-11.0) Red Blood Count 4.06 x10^6/uL (3.50-5.40) Hemoglobin 10.0 g/dL (12.0-15.5) L Hematocrit 32.8 % (36.0-47.0) L Mean Corpuscular Volume 81 fL (79-100) Mean Corpuscular Hemoglobin 25 pg (25-35) Mean Corpuscular Hemoglobin Concent 31 g/dL (31-37) Red Cell Distribution Width 16.9 % (11.5-14.5) H Platelet Count 158 x10^3/uL (140-400) Neutrophils (%) (Auto) 86 % (31-73) H Lymphocytes (%) (Auto) 8 % (24-48) L Monocytes (%) (Auto) 5 % (0-9) Eosinophils (%) (Auto) 1 % (0-3) Basophils (%) (Auto) 1 % (0-3) Neutrophils # (Auto) 8.8 x10^3/uL (1.8-7.7) H Lymphocytes # (Auto) 0.8 x10^3/uL (1.0-4.8) L Monocytes # (Auto) 0.5 x10^3/uL (0.0-1.1) Eosinophils # (Auto) 0.1 x10^3/uL (0.0-0.7) Basophils # (Auto) 0.1 x10^3/uL (0.0-0.2) Segmented Neutrophils % 90 % (35-66) H Band Neutrophils % 3 % (0-9) Lymphocytes % 3 % (24-48) L Monocytes % 4 % (0-10) Platelet Estimate Adequate (ADEQUATE) Large Platelets Occ Hypochromasia Slight Anisocytosis Present Prothrombin Time 11.9 SEC (11.7-14.0) Prothrombin Time INR 0.9 (0.8-1.1) Sodium Level 140 mmol/L (136-145) Potassium Level 3.9 mmol/L (3.5-5.1) Chloride Level 99 mmol/L (98-107) Carbon Dioxide Level 40 mmol/L (21-32) H Anion Gap 1 (6-14) L Blood Urea Nitrogen 7 mg/dL (7-20) Creatinine 0.5 mg/dL (0.6-1.0) L Estimated GFR (Cockcroft-Gault) 125.9 BUN/Creatinine Ratio 14 (6-20) Glucose Level 166 mg/dL (70-99) H Calcium Level 9.0 mg/dL (8.5-10.1) Magnesium Level 1.4 mg/dL (1.8-2.4) L Total Bilirubin 0.6 mg/dL (0.2-1.0) Aspartate Amino Transferase (AST) 16 U/L (15-37) Alanine Aminotransferase (ALT) 54 U/L (14-59) Alkaline Phosphatase 43 U/L (46-116) L Troponin I Quantitative < 0.017 ng/mL (0.000-0.055) WK-Sqe-S-Type Natriuretic Peptide 1930 pg/mL (0-124) H Total Protein 6.1 g/dL (6.4-8.2) L Albumin 3.1 g/dL (3.4-5.0) L Albumin/Globulin Ratio 1.0 (1.0-1.7) Laboratory Tests 12/12/18 09:30 Laboratory Tests 12/12/18 09:30 ECHOCARDIOGRAM ECHOCARDIOGRAM <Conclusion> The left ventricular systolic function is normal. The Ejection Fraction is 60-65%. There is normal LV segmental wall motion. Trace tricuspid regurgitation with an estimated PAP of 47 mmHg. There is no evidence of significant pericardial effusion. DATE: 11/25/18 1717 ASSESSMENT/PLAN ASSESSMENT/PLAN 1. Acute on chronic respiratory failure; multifactorial in the setting of CHF, AE COPD, and poss PNA. requiring ventimask 2. Atrial fibrillation with RVR; converted back to SR with Cardizem gtt 3. Acute on chronic diastolic CHF; precipitated by COPD and RVR. Recent echo with preserved LV function 4. Mental retardation 5. Hypertension; low normotensive on Cardizem gtt at 5mg/hr 6, Hyperlipidemia; statin therapy 7. Diabetes, II; as per PCP Recommendations Resume metoprolol for rate control unless significant wheezing is noted. Titrate off Cardizem gtt ASA for stroke prevention now ? candidate for OAC Mild diuresis Supportive care NOELLE RYAN MD 12/13/182032: CARDIAC CONSULT ASSESSMENT/PLAN ASSESSMENT/PLAN Patient seen and examined 12/12/18. Agree with EXCEPTIONAL NEEDS TEACHER's assessment and plan. Afib RVR presently back in SR Change Cardizem to PO She is probably a poor candidate for long chain quiller tender anticoagulation. Cont ASA Recent echo showed normal LVF Thank you for your consultation JETT RIOS APRN Dec 12, 2018 12:09 NOELLE RYAN MD Dec 13, 2018 20:33
[2018-12-12] MEDS ORDERED: MAGNESIUM SULFATE 2GM 50 ML IV ONE (13:00)
--- NOTE | 2018-12-12 13:03 | EKG ---
[facility] [address] [place] [address] Test Date: 2018-12-12 Test Time: 08:50:40 Pat Name: RENA BROTHERS Department: Room: Gender: F Assistant Technician: : 1960 Requested By: JEFFERY CALLES Order Number: [id number] Reading MD: Measurements Intervals [place] Rate: 170 P: [place]: QRS: 89 QRSD: 84 T: 56 QT: 268 QTc: 454 Interpretive Statements IRREGULAR RHYTHM, NO P-WAVE FOUND R-S TRANSITION ZONE IN V LEADS DISPLACED TO THE LEFT LOW LIMB LEAD VOLTAGE NO SPECIFIC ECG ABNORMALITIES RI6.01 No previous ECG available for comparison
[2018-12-12] MEDS ORDERED: FUROSEMIDE 20 MG/2 ML VIAL. IVP ONE (14:30)
[2018-12-12] MEDS ORDERED: POTASSIUM CHLORIDE 20 MEQ TABLET.ER. PO ONE (14:30)
[2018-12-12] MEDS: METOPROLOL SUCC 24HR ER 25 MG TAB.ER.24H. PO SCH (15:10)
[2018-12-12] MEDS: ASPIRIN ENTERIC COATED 81 MG TABLET.DR. PO SCH (15:11)
--- NOTE | 2018-12-12 15:28 | PDOC1 ---
History and Physical Date of Admission Date of Admission DATE: 12/12/18 TIME: 15:21 Identification/Chief Complaint Chief Complaint sob Problems: (1) COPD exacerbation Source Source: Caregiver, Chart review, Patient History of Present Illness History of Present Illness 58 female, with a h/o MR, end stage COPD who presents to the ED with sob since being discharged from hospital on 12/05. admitted prev for COPD exacerbation requiring BIPAP. still sob since discharge. currently resides [facility]. accompanied by her sister who provided most of the history and patient has MR. upon arrival patient was noted in AFIB with RVR. Cardizem gtt initiated and patient converted back to NSR with HR low 100s. patient denies any chest pain, palpitations. Reports compliance with medications. Past Medical History Cardiovascular: AFIB, CHF, HTN, Hyperlipidemia Pulmonary: COPD CENTRAL NERVOUS SYSTEM: Other (MR) GI: Peptic Ulcer disease Hepatobiliary: Cholelithiasis Psych: Schizophrenia Musculoskeletal: Osteoarthritis Renal/: UTI, Urinary Incontinence Endocrine: Diabetes Past Surgical History Past Surgical History: Appendectomy, Tonsillectomy, Hysterectomy Family History Family History: Hypertension Social History Smoke: Quit ALCOHOL: none Drugs: None Current Problem List Problem List Problems Medical Problems: (1) Atrial fibrillation with RVR Status: Acute (2) COPD exacerbation Status: Acute Current Medications Current Medications Current Medications Albuterol/ Ipratropium (Duoneb) 3 ml 1X ONCE NEB Last administered on 12/12/18at 09:16; Start 12/12/18 at 09:15; Stop 12/12/18 at 09:16; Status DC Methylprednisolone Sodium Succinate (SOLU-Medrol 125MG VIAL) 125 mg 1X ONCE IV Last administered on 12/12/18at 09:52; Start 12/12/18 at 09:15; Stop 12/12/18 at 09:16; Status DC Diltiazem HCl (Cardizem Iv Push) 10 mg 1X ONCE IVP Last administered on 12/12/18at 09:52; Start 12/12/18 at 09:15; Stop 12/12/18 at 09:16; Status DC Diltiazem HCl 125 mg/Dextrose 125 ml @ 5 mls/hr CONT PRN IV SEE I/O RECORD Last administered on 12/12/18at 09:51; Start 12/12/18 at 08:45 Piperacillin Sod/ Tazobactam Sod 3.375 gm/Sodium Chloride 50 ml @ 100 mls/hr 1X ONCE IV Last administered on 12/12/18at 12:15; Start 12/12/18 at 11:00; Stop 12/12/18 at 11:29; Status DC Vancomycin HCl 250 ml @ 250 mls/hr 1X ONCE IV Last administered on 12/12/18at 11:00; Start 12/12/18 at 11:00; Stop 12/12/18 at 11:59; Status DC Albuterol/ Ipratropium (Duoneb) 3 ml 1X ONCE NEB Last administered on 12/12/18at 12:57; Start 12/12/18 at 12:45; Stop 12/12/18 at 12:46; Status DC Magnesium Sulfate 50 ml @ 25 mls/hr 1X ONCE IV ; Start 12/12/18 at 13:00; Stop 12/12/18 at 14:59; Status DC Metoprolol Succinate (Toprol Xl) 50 mg DAILY PO ; Start 12/12/18 at 14:00 Aspirin (Ecotrin) 81 mg DAILYWBKFT PO ; Start 12/12/18 at 14:30 Furosemide (Lasix) 20 mg 1X ONCE IVP ; Start 12/12/18 at 14:30; Stop 12/12/18 at 14:31; Status DC Potassium Chloride (Klor-Con) 20 meq 1X ONCE PO ; Start 12/12/18 at 14:30; Stop 12/12/18 at 14:31; Status DC Active Scripts Active Proair Hfa Inhaler (Albuterol Sulfate) 8.5 Gm Hfa.aer.ad 1 Puff INH PRN Q6HRS PRN Proair Hfa Inhaler (Albuterol Sulfate) 8.5 Gm Hfa.aer.ad 2 Puff INH PRN Q6HRS NH N Colace 2-in-1 Tablet (Sennosides/Docusate Sodium) 1 Each Tablet 1 Each PO BID PRN Glucophage (Metformin Hcl) 500 Mg Tablet 1,000 Mg PO BIDWMEALS Reported Lasix (Furosemide) 20 Mg Tablet 20 Mg PO DAILY Metoprolol Succinate ( Xl ) (Metoprolol Succinate) 25 Mg Tab.er.24h 50 Mg PO DAILY Acetaminophen 650 Mg/20.3 Ml Solution 650 Mg FT PRN PRN Miralax (Polyethylene Glycol 3350) 17 Gm Powd.pack 1 Pkt PO DAILY Ferrous Sulfate 325 Mg Tablet 325 Mg PO BID Seroquel (Quetiapine Fumarate) 200 Mg Tablet 200 Mg PO HS Melatonin 3 Mg Tablet 3 Mg PO HS Simvastatin 10 Mg Tablet 10 Mg PO HS Symbicort 160-4.5 Mcg Inhaler (Budesonide/Formoterol Fumarate) 10.2 Gm Hfa.aer.ad 2 Puff IH BID Albuterol Sulfate Hfa Inhaler (Albuterol Sulfate) 8.5 Gm Hfa.aer.ad 2 Puff INH Q4HRS Allergies Allergies: Coded Allergies: No Known Drug Allergies (Unverified , 03/03/13) ROS Review of System CONSTITUTIONAL: No fever or chills EYES: No recent changes SKIN: No rash or itching CARDIOVASCULAR: No chest pain, syncope, palpitations, or edema RESPIRATORY: No SOB or cough GASTROINTESTINAL: No nausea, vomiting or abdominal pain NEUROLOGICAL: No headaches or weakness ENDOCRINE: No cold or heat intolerance GENITOURINARY: No urgency or frequency of urination MUSCULOSKELETAL: No back pain or joint pain LYMPHATICS: No enlarged lymph nodes PSYCHIATRIC: No anxiety or depression Physical Exam Physical Exam GENERAL: No apparent distress. Alert and oriented. HEENT: Head normocephalic, atraumatic. NECK: Supple LUNGS: bilateral wheezing HEART: RRR, S1, S2 present, pulses intact ABDOMEN: Soft, positive bowel sounds. EXTREMITIES: No cyanosis or edema. NEUROLOGIC: Normal speech, normal tone PSYCHIATRIC: Normal affect, normal mood. SKIN: No ulceration. Vitals Vitals Vital Signs Date Time Temp Pulse Resp B/P (MAP) Pulse Ox O2 Delivery O2 Flow Rate FiO2 12/12/18 12:57 Venturi Mask 9.0 12/12/18 12:14 100 97/55 (69) 100 12/12/18 09:38 16 Labs Labs Laboratory Tests Test 12/12/18 09:10 12/12/18 09:30 O2 Saturation 94 % (92-99) Arterial Blood pH 7.40 (7.35-7.45) Arterial Blood pCO2 at Patient Temp 66 mmHg (35-46) Arterial Blood pO2 at Patient Temp 72 mmHg (65-108) Arterial Blood HCO3 40 mmol/L (21-28) Arterial Blood Base Excess 13 mmol/L (-3-3) FiO2 32 White Blood Count 10.2 x10^3/uL (4.0-11.0) Red Blood Count 4.06 x10^6/uL (3.50-5.40) Hemoglobin 10.0 g/dL (12.0-15.5) Hematocrit 32.8 % (36.0-47.0) Mean Corpuscular Volume 81 fL (79-100) Mean Corpuscular Hemoglobin 25 pg (25-35) Mean Corpuscular Hemoglobin Concent 31 g/dL (31-37) Red Cell Distribution Width 16.9 % (11.5-14.5) Platelet Count 158 x10^3/uL (140-400) Neutrophils (%) (Auto) 86 % (31-73) Lymphocytes (%) (Auto) 8 % (24-48) Monocytes (%) (Auto) 5 % (0-9) Eosinophils (%) (Auto) 1 % (0-3) Basophils (%) (Auto) 1 % (0-3) Neutrophils # (Auto) 8.8 x10^3/uL (1.8-7.7) Lymphocytes # (Auto) 0.8 x10^3/uL (1.0-4.8) Monocytes # (Auto) 0.5 x10^3/uL (0.0-1.1) Eosinophils # (Auto) 0.1 x10^3/uL (0.0-0.7) Basophils # (Auto) 0.1 x10^3/uL (0.0-0.2) Segmented Neutrophils % 90 % (35-66) Band Neutrophils % 3 % (0-9) Lymphocytes % 3 % (24-48) Monocytes % 4 % (0-10) Platelet Estimate Adequate (ADEQUATE) Large Platelets Occ Hypochromasia Slight Anisocytosis Present Prothrombin Time 11.9 SEC (11.7-14.0) Prothromb Time International Ratio 0.9 (0.8-1.1) Sodium Level 140 mmol/L (136-145) Potassium Level 3.9 mmol/L (3.5-5.1) Chloride Level 99 mmol/L (98-107) Carbon Dioxide Level 40 mmol/L (21-32) Anion Gap 1 (6-14) Blood Urea Nitrogen 7 mg/dL (7-20) Creatinine 0.5 mg/dL (0.6-1.0) Estimated GFR (Cockcroft-Gault) 125.9 BUN/Creatinine Ratio 14 (6-20) Glucose Level 166 mg/dL (70-99) Calcium Level 9.0 mg/dL (8.5-10.1) Magnesium Level 1.4 mg/dL (1.8-2.4) Total Bilirubin 0.6 mg/dL (0.2-1.0) Aspartate Amino Transf (AST/SGOT) 16 U/L (15-37) Alanine Aminotransferase (ALT/SGPT) 54 U/L (14-59) Alkaline Phosphatase 43 U/L (46-116) Troponin I Quantitative < 0.017 ng/mL (0.000-0.055) DO-Kop-Q-Type Natriuretic Peptide 1930 pg/mL (0-124) Total Protein 6.1 g/dL (6.4-8.2) Albumin 3.1 g/dL (3.4-5.0) Albumin/Globulin Ratio 1.0 (1.0-1.7) Laboratory Tests Test 12/12/18 09:10 12/12/18 09:30 O2 Saturation 94 % (92-99) Arterial Blood pH 7.40 (7.35-7.45) Arterial Blood pCO2 at Patient Temp 66 mmHg (35-46) Arterial Blood pO2 at Patient Temp 72 mmHg (65-108) Arterial Blood HCO3 40 mmol/L (21-28) Arterial Blood Base Excess 13 mmol/L (-3-3) FiO2 32 White Blood Count 10.2 x10^3/uL (4.0-11.0) Red Blood Count 4.06 x10^6/uL (3.50-5.40) Hemoglobin 10.0 g/dL (12.0-15.5) Hematocrit 32.8 % (36.0-47.0) Mean Corpuscular Volume 81 fL (79-100) Mean Corpuscular Hemoglobin 25 pg (25-35) Mean Corpuscular Hemoglobin Concent 31 g/dL (31-37) Red Cell Distribution Width 16.9 % (11.5-14.5) Platelet Count 158 x10^3/uL (140-400) Neutrophils (%) (Auto) 86 % (31-73) Lymphocytes (%) (Auto) 8 % (24-48) Monocytes (%) (Auto) 5 % (0-9) Eosinophils (%) (Auto) 1 % (0-3) Basophils (%) (Auto) 1 % (0-3) Neutrophils # (Auto) 8.8 x10^3/uL (1.8-7.7) Lymphocytes # (Auto) 0.8 x10^3/uL (1.0-4.8) Monocytes # (Auto) 0.5 x10^3/uL (0.0-1.1) Eosinophils # (Auto) 0.1 x10^3/uL (0.0-0.7) Basophils # (Auto) 0.1 x10^3/uL (0.0-0.2) Segmented Neutrophils % 90 % (35-66) Band Neutrophils % 3 % (0-9) Lymphocytes % 3 % (24-48) Monocytes % 4 % (0-10) Platelet Estimate Adequate (ADEQUATE) Large Platelets Occ Hypochromasia Slight Anisocytosis Present Prothrombin Time 11.9 SEC (11.7-14.0) Prothromb Time International Ratio 0.9 (0.8-1.1) Sodium Level 140 mmol/L (136-145) Potassium Level 3.9 mmol/L (3.5-5.1) Chloride Level 99 mmol/L (98-107) Carbon Dioxide Level 40 mmol/L (21-32) Anion Gap 1 (6-14) Blood Urea Nitrogen 7 mg/dL (7-20) Creatinine 0.5 mg/dL (0.6-1.0) Estimated GFR (Cockcroft-Gault) 125.9 BUN/Creatinine Ratio 14 (6-20) Glucose Level 166 mg/dL (70-99) Calcium Level 9.0 mg/dL (8.5-10.1) Magnesium Level 1.4 mg/dL (1.8-2.4) Total Bilirubin 0.6 mg/dL (0.2-1.0) Aspartate Amino Transf (AST/SGOT) 16 U/L (15-37) Alanine Aminotransferase (ALT/SGPT) 54 U/L (14-59) Alkaline Phosphatase 43 U/L (46-116) Troponin I Quantitative < 0.017 ng/mL (0.000-0.055) OG-Pug-J-Type Natriuretic Peptide 1930 pg/mL (0-124) Total Protein 6.1 g/dL (6.4-8.2) Albumin 3.1 g/dL (3.4-5.0) Albumin/Globulin Ratio 1.0 (1.0-1.7) VTE Prophylaxis Ordered VTE Prophylaxis Devices: Yes VTE Pharmacological Prophylaxi: Yes Assessment/Plan Assessment/Plan ASSESSMENT Acute on combined chronic hypoxic and hypercapnic respiratory failure; Acute exacerbation of COPD Probable PNA, GN bacteria Pleural Effusion Atrial fibrillation with RVR; converted back to SR with Cardizem gtt Acute on chronic diastolic CHF Mental retardation Hypertension Hyperlipidemia Diabetes II PLAN cxr with Increase in small left-sided pleural effusion. There is associated compressive atelectasis or left lung base infiltrate. resp failure likely multifactorial secondary to copd, pna, pleural affrusion -IV abx, steroids, nebs, 02 - iv vanc and zosyn consult pulm for copd management and pleural effusion Resume metoprolol for rate control Recent echo with preserved LV function titrate off card drip continue ASA defer ac to cards continue lasix apprec cards cards and pulm consult dvt ppx: lovenox full code NORBERTO CANCINO MD Dec 12, 2018 15:28
[2018-12-12] MEDS ORDERED: SENNOSIDES/DOCUSATE 8.6/50MG TABLET. PO PRN (15:30)
[2018-12-12] MEDS: IPRATRPIUM/ALBUTEROL 0.5/2.5MG 3 ML NEBU. NEB SCH ×2 (15:42→19:26)
[2018-12-12] MEDS ORDERED: PIP/TAZO PER PHARMACY MC PRN (15:45)
[2018-12-12 17:15] VITALS: BP 137/60
[2018-12-12] MEDS: metFORMIN 500 MG TABLET PO SCH (17:59)
[2018-12-12] MEDS: ALPRAZolam 0.5 MG TABLET PO PRN ×2 (17:59→22:59)
[2018-12-12] MEDS: FERROUS SULFATE 325 MG TABLET. PO SCH (17:59)
[2018-12-12] MEDS: PIPERACILLIN/TAZOBACTAM 3.375 GM in IV NORMAL SALINE 50ML 50 ML IV SCH (18:01)
[2018-12-12] MEDS: HEPARIN for SUB-Q USE 5,000 UNIT/ML VIAL. SQ SCH ×2 (18:11→22:55)
[2018-12-12] MEDS: VANCOMYCIN PER PHARMACY MC PRN (18:15)
--- NOTE | 2018-12-12 18:17 | NUR ---
Pharmacy Vancomycin Dosing Note S:Consulted to monitor and dose vancomycin started 12/12/18. O:RENA BROTHERS is a 58 year old F with Pneumonia . Height: 5 feet, 4 inches Weight: 92.098653 kg [place] Body Weight: 54.70 Adjusted Body Weight: 69.98 Dosing Weight: Actual Other Antibiotics: ZOSYN LABS: Last BUN: Last Creatinine: 0.5 Creatinine Clearance: 135 mL/min Last WBC: 10.2 Last Procalcitonin: Tmax (past 24 hours): Microbiology: I/O: Drug Levels: Last level: on at Last dose given 12/12/18 at 1100 Vancomycin Dosing: Loading Dose: 2000 mg x1 Dosing Weight: Actual Target Trough: 15-20 A: Based on: WEIGHT/RENAL FUNCTION/1GM GIVEN IN ER 7 HOURS AGO/ START 2GM IV BOLUS NOW, P: 1. THEN Begin Vancomycin 1250 mg IV q8h IN THE MORNING 2. Follow up Trough level on 12/13/18 at 1800 3. Pharmacy will continue to monitor, follow and adjust therapy as needed. SHANNAN FULLER Mila, 12/12/18 [id number]
[2018-12-12] MEDS ORDERED: VANCOMYCIN 2 GM in IV NORMAL SALINE 500ML BAG 500 ML IV ONE (18:30)
--- NOTE | 2018-12-12 18:46 | NUR ---
The patient, RENA BROTHERS, 58 y/o, F admitted by NORBERTO CANCINO MD, was given written information regarding hospital policies, unit procedures and contact persons. Valuables were checked and .
[2018-12-12 19:00] VITALS: BP 125/53
[2018-12-12] MEDS: BUDESONIDE 0.5 MG/2 ML NEBU. NEB SCH (19:26)
[2018-12-12] MEDS ORDERED: NON FORMULARY ITEM (Melatonin 3 MG) PO SCH (21:00)
[2018-12-12] MEDS ORDERED: NON FORMULARY ITEM (Budesonide/Formoterol Fumarate (Symbicort 160-4.5 Mcg Inhaler) 2 PUFF) IH SCH (21:00)
[2018-12-12] MEDS: SIMVASTATIN 10 MG TABLET PO SCH (22:46)
[2018-12-12] MEDS: methylPREDNISolone SOD SUCC PF 40 MG/ML VIAL. IV SCH (22:46)
[2018-12-12] MEDS: QUEtiapine 100 MG TABLET. PO SCH (22:46)
[2018-12-12 23:00] VITALS: BP 126/69
[2018-12-13] MEDS ORDERED: ALBUTEROL SULFATE 2.5 MG/3 ML NEBU. NEB SCH
--- NOTE | 2018-12-13 00:18 | NUR ---
Glucose 488. Notified Dr Johnson. New order for insulin. RN will continue to monitor.
[2018-12-13] MEDS: PIPERACILLIN/TAZOBACTAM 3.375 GM in IV NORMAL SALINE 50ML 50 ML IV SCH ×5 (00:55→23:09)
[2018-12-13] MEDS ORDERED: INSULIN LISPRO 300 UNITS/3 ML VIAL. SQ ONE (01:00)
[2018-12-13 03:00] VITALS: BP 137/77
[2018-12-13] MEDS: methylPREDNISolone SOD SUCC PF 40 MG/ML VIAL. IV SCH ×3 (05:52→20:21)
[2018-12-13] MEDS: VANCOMYCIN 1.25 GM in IV NORMAL SALINE 250ML 250 ML IV SCH ×3 (05:52→20:22)
[2018-12-13] MEDS: HEPARIN for SUB-Q USE 5,000 UNIT/ML VIAL. SQ SCH ×3 (06:00→20:18)
[2018-12-13 07:00] VITALS: BP 107/51
[2018-12-13] MEDS: IPRATRPIUM/ALBUTEROL 0.5/2.5MG 3 ML NEBU. NEB SCH ×4 (07:27→19:39)
[2018-12-13 07:48] LABS: BASO % 0 % (0-3); EOS % 0 % (0-3); HEMATOCRIT 28.6 % (36.0-47.0); HEMOGLOBIN 8.9 g/dL (12.0-15.5); LYMPH # 0.4 x10^3/uL (1.0-4.8); LYMPH % 7 % (24-48); MEAN CORPUSCULAR HEMOGLOBIN 25 pg (25-35); MEAN CORPUSCULAR HGB CONC 31 g/dL (31-37); MEAN CORPUSCULAR VOLUME 81 fL (79-100); MONO # 0.1 x10^3/uL (0.0-1.1); MONO % 2 % (0-9); NEUT # 5.1 x10^3/uL (1.8-7.7); NEUT % 91 % (31-73); PLATELET COUNT 146 x10^3/uL (140-400); RED BLOOD COUNT 3.55 x10^6/uL (3.50-5.40); RED CELL DISTRIBUTION WIDTH 17.7 % (11.5-14.5); WHITE BLOOD COUNT 5.7 x10^3/uL (4.0-11.0)
[2018-12-13 07:58] LABS: CALCIUM 8.5 mg/dL (8.5-10.1); CREATININE 0.6 mg/dL (0.6-1.0); POTASSIUM 4.6 mmol/L (3.5-5.1)
[2018-12-13] MEDS: BUDESONIDE 0.5 MG/2 ML NEBU. NEB SCH ×2 (08:00→19:41)
--- NOTE | 2018-12-13 08:30 | NUR ---
wound care patient seen per wound care consult. patient has some IAD to the bilateral groins, and buttocks, no wound noted at this time, recommendations of nystatin powder. notified KARYNA Harmon about the POC, wound care will continue to f/u for changes.
[2018-12-13] MEDS: POLYETHYLENE GLYCOL 3350 17 GM PACKET. PO SCH (09:00)
[2018-12-13] MEDS ORDERED: IV DEXTROSE 5% 250 ML BAG. IV PRN (09:30)
[2018-12-13] MEDS ORDERED: DEXTROSE 50% 25 GM / 50ML DISP.SYRIN. IV PRN (09:30)
[2018-12-13] MEDS: metFORMIN 500 MG TABLET PO SCH ×2 (09:33→17:49)
[2018-12-13] MEDS: METOPROLOL SUCC 24HR ER 25 MG TAB.ER.24H. PO SCH (09:33)
[2018-12-13] MEDS: FERROUS SULFATE 325 MG TABLET. PO SCH ×2 (09:33→17:49)
[2018-12-13] MEDS: ASPIRIN ENTERIC COATED 81 MG TABLET.DR. PO SCH (09:33)
[2018-12-13] MEDS: FUROSEMIDE 20 MG TABLET PO SCH (09:33)
[2018-12-13] MEDS ORDERED: FUROSEMIDE 20 MG/2 ML VIAL. IVP ONE ×2 (09:45→16:15)
--- NOTE | 2018-12-13 09:53 | CONS ---
DATE OF CONSULTATION: 12/13/2018 PULMONARY CONSULTATION ATTENDING PHYSICIAN: Dr. David Gerber. REASON FOR CONSULTATION: Dyspnea and hypoxia. HISTORY OF PRESENT ILLNESS: The patient is a 58-year-old female who has history of diastolic heart failure, history of COPD, and underlying schizophrenia with mental retardation. She was recently discharged from the hospital. She came back to the hospital after EMS was called at the [facility] with dyspnea and hypoxia. When they arrived, her saturations were in the 70s. She was also noted to be in atrial fibrillation with a rapid ventricular response. She was not using her oxygen. She has no chest pain; no palpitations; no headaches; no nausea, vomiting, or diarrhea. She was noted to be wheezing. I reviewed the patient's chest x-ray and this was dated 12/12 and is consistent with congestive heart failure. Her echocardiogram has grade 2 diastolic dysfunction with normal EF. PAST MEDICAL HISTORY: History of atrial fibrillation, history of CHF diastolic with grade 2 diastolic dysfunction, history of hypertension, hyperlipidemia, and COPD, schizophrenia, mental retardation, osteoarthritis, UTI, and diabetes. PAST SURGICAL HISTORY: Appendectomy, tonsillectomy, and hysterectomy. FAMILY HISTORY: Hypertension. SOCIAL HISTORY: She states she is down to few cigarettes a day, has history of tobacco use. ALLERGIES: None. MEDICATIONS: Reviewed as listed in the MRAD including antibiotics and IV steroids along with bronchodilators. REVIEW OF SYSTEMS: Twelve-point system obtained. Pertinent positives discussed in my history of present illness, otherwise noncontributory. All systems that were negative were reviewed as well. PHYSICAL EXAMINATION: VITAL SIGNS: Reviewed. Blood pressure 107/51, afebrile, pulse ox is 93% on 4 liters. NECK: Supple. LUNGS: With bilateral expiratory wheezes. CARDIOVASCULAR: With a regular rate. ABDOMEN: Soft, obese. EXTREMITIES: With 1+ pitting edema. LABORATORY DATA: Reviewed. White cell count 5.7, hemoglobin 8.9, and platelets of 146. BUN and creatinine normal. ProBNP is 1930. ABGs with a pH of 7.40, pCO2 of 66, and pO2 of 72 on 32% FiO2. IMPRESSION: 1. Ufjno-la-dhxcias hypoxic respiratory failure secondary to combination of lntpz-el-mqfordi diastolic heart failure and chronic obstructive pulmonary disease exacerbation. 2. Atrial fibrillation with rapid ventricular response, triggering diastolic heart failure and hypoxia. 3. Underlying morbid obesity with compensated hypercapnic respiratory acidosis. 4. Underlying chronic obstructive pulmonary disease. 5. Abnormal chest x-ray, more favoring congestive heart failure. RECOMMENDATIONS: 1. Continue with present oxygen, keep saturation 92% and above. 2. IV diuresis. 3. Follow chest x-ray to see the response to treatment. 4. Continue with IV steroids, low dose. 5. Continue with DuoNebs. 6. Add Pulmicort. 7. Currently on metoprolol 50 p.o. daily. If the bronchospasm does not improve, then we should hold beta earle. 8. Antibiotics can be deescalated soon. Clinically, I do not think any pneumonia. 9. Discussed with RN. We will follow along with you. CLEM SCHAEFER MD DR: MYA/nts JOB#: [id number] / [id number]
--- NOTE | 2018-12-13 10:36 | NUR ---
SS following for discharge planning. SS reviewed pt chart and received notification that pt is from [facility], ; fax [phone]. SS contacted [facility] and verified that pt is a LTC resident from there facility and is able to return when medically stable for discharge. SS will continue to follow for discharge planning.
--- NOTE | 2018-12-13 10:57 | PDOC ---
[employer] PROGRESS NOTE Chief Complaint Chief Complaint COPD exacerbation Afib with RVR History of Present Illness History of Present Illness 12/13/18 Pt was seen and examined today at bedside Now in normal sinus rhythm due to Cardizem Was in pleasant disposition Was able to state her age EF = 60-65% Vitals/I&O Vitals/I&O: Vital Signs Date Time Temp Pulse Resp B/P (MAP) Pulse Ox O2 Delivery O2 Flow Rate FiO2 12/13/18 09:33 94 107/51 12/13/18 08:00 3.0 12/13/18 07:28 93 Nasal Cannula 12/13/18 07:00 97.4 20 97.4 I & O 12/12/18 12/12/18 12/13/18 14:59 22:59 06:59 Intake Total 820 ml 900 ml Output Total 1300 ml Balance 820 ml -400 ml Physical Exam General: Alert, Oriented X3, Cooperative, No acute distress, mild distress, Other ([place]) Heart: Regular rate, Normal S1, Normal S2, No murmurs Lungs: Clear, Other Abdomen: Soft, No tenderness Extremities: Normal pulses, Other (1-2+ bilateral LE edema ) Labs Labs: Laboratory Tests Test 12/12/18 22:52 12/13/18 01:01 12/13/18 07:10 Glucose (Fingerstick) 488 mg/dL (70-99) 423 mg/dL (70-99) White Blood Count 5.7 x10^3/uL (4.0-11.0) Red Blood Count 3.55 x10^6/uL (3.50-5.40) Hemoglobin 8.9 g/dL (12.0-15.5) Hematocrit 28.6 % (36.0-47.0) Mean Corpuscular Volume 81 fL (79-100) Mean Corpuscular Hemoglobin 25 pg (25-35) Mean Corpuscular Hemoglobin Concent 31 g/dL (31-37) Red Cell Distribution Width 17.7 % (11.5-14.5) Platelet Count 146 x10^3/uL (140-400) Neutrophils (%) (Auto) 91 % (31-73) Lymphocytes (%) (Auto) 7 % (24-48) Monocytes (%) (Auto) 2 % (0-9) Eosinophils (%) (Auto) 0 % (0-3) Basophils (%) (Auto) 0 % (0-3) Neutrophils # (Auto) 5.1 x10^3/uL (1.8-7.7) Lymphocytes # (Auto) 0.4 x10^3/uL (1.0-4.8) Monocytes # (Auto) 0.1 x10^3/uL (0.0-1.1) Eosinophils # (Auto) 0.0 x10^3/uL (0.0-0.7) Basophils # (Auto) 0.0 x10^3/uL (0.0-0.2) Sodium Level 142 mmol/L (136-145) Potassium Level 4.6 mmol/L (3.5-5.1) Chloride Level 100 mmol/L (98-107) Carbon Dioxide Level 42 mmol/L (21-32) Anion Gap 0 (6-14) Blood Urea Nitrogen 15 mg/dL (7-20) Creatinine 0.6 mg/dL (0.6-1.0) Estimated GFR (Cockcroft-Gault) 102.0 Glucose Level 239 mg/dL (70-99) Calcium Level 8.5 mg/dL (8.5-10.1) Review of Systems Review of Systems: No nausea, no vomiting No chest pain, no palpitations Assessment and Plan Assessmemt and Plan Problems Medical Problems: (1) Atrial fibrillation with RVR Status: Acute (2) COPD exacerbation Status: Acute Assessment COPD exacerbation Atrial fibrillation with RVR Plan Taper off cardizem gtt Insulin Nystatin powder IV steroids Continue O2, duonebs DVT prophylaxis DNR Comment Review of Relevant I have reviewed the following items ana (where applicable) has been applied. Medications: Current Medications Medications (Trade) Dose Ordered Sig/[place] Route PRN Reason Start Time Stop Time Status Last Admin Dose Admin Piperacillin Sod/ Tazobactam Sod 3.375 gm/Sodium Chloride 50 ml @ 100 mls/hr 1X ONCE IV 12/12/18 11:00 12/12/18 11:29 DC 12/12/18 12:15 Vancomycin HCl 250 ml @ 250 mls/hr 1X ONCE IV 12/12/18 11:00 12/12/18 11:59 DC 12/12/18 11:00 Albuterol/ Ipratropium (Duoneb) 3 ml 1X ONCE NEB 12/12/18 12:45 12/12/18 12:46 DC 12/12/18 12:57 Magnesium Sulfate 50 ml @ 25 mls/hr 1X ONCE IV 12/12/18 13:00 12/12/18 14:59 DC 12/12/18 15:23 Metoprolol Succinate (Toprol Xl) 50 mg DAILY PO 12/12/18 14:00 12/13/18 09:33 Aspirin (Ecotrin) 81 mg DAILYWBKFT PO 12/12/18 14:30 12/13/18 09:33 Furosemide (Lasix) 20 mg 1X ONCE IVP 12/12/18 14:30 12/12/18 14:31 DC 12/12/18 15:21 Potassium Chloride (Klor-Con) 20 meq 1X ONCE PO 12/12/18 14:30 12/12/18 14:31 DC 12/12/18 15:09 Ferrous Sulfate (Feosol) 325 mg BIDWMEALS PO 12/12/18 17:00 12/13/18 09:33 Furosemide (Lasix) 20 mg DAILY PO 12/13/18 09:00 12/13/18 09:33 Metformin HCl (Glucophage) 1,000 mg BIDWMEALS PO 12/12/18 17:00 12/13/18 09:33 Simvastatin (Zocor) 10 mg HS PO 12/12/18 21:00 12/12/18 22:46 Quetiapine Fumarate (SEROquel) 200 mg QHS PO 12/12/18 21:00 12/12/18 22:46 Albuterol/ Ipratropium (Duoneb) 3 ml RTQID NEB 12/12/18 16:00 12/13/18 07:27 Methylprednisolone Sodium Succinate (SOLU-Medrol 40MG VIAL) 40 mg Q8HRS IV 12/12/18 22:00 12/13/18 05:52 Vancomycin HCl (Vanco Per Pharmacy) 1 each PRN DAILY PRN MC SEE COMMENTS 12/12/18 15:45 12/12/18 18:15 Heparin Sodium (Porcine) (Heparin Sodium) 5,000 unit Q8HRS SQ 12/12/18 17:00 12/13/18 06:00 Budesonide (Pulmicort) 0.5 mg RTBID NEB 12/12/18 20:00 12/12/18 19:26 Piperacillin Sod/ Tazobactam Sod 3.375 gm/Sodium Chloride 50 ml @ 100 mls/hr Q6HRS IV 12/12/18 18:00 12/13/18 05:51 Alprazolam (Xanax) 0.5 mg PRN Q4HRS PRN PO ANXIETY / AGITATION 12/12/18 17:45 12/12/18 22:59 Vancomycin HCl 2 gm/Sodium Chloride 500 ml @ 250 mls/hr 1X ONCE IV 12/12/18 18:30 12/12/18 20:29 DC 12/12/18 22:47 Vancomycin HCl 1.25 gm/Sodium Chloride 250 ml @ 166.667 mls/hr Q8H IV 12/13/18 02:30 12/13/18 09:35 Insulin Human Lispro (HumaLOG) 30 units 1X ONCE SQ 12/13/18 01:00 12/13/18 01:01 DC 12/13/18 01:04 PARTHA EPPS III DO Dec 13, 2018 10:57
[2018-12-13 11:00] VITALS: BP 106/58
[2018-12-13] MEDS: NYSTATIN TOPICAL POWDER 15GM BOTTLE. TP SCH ×2 (11:47→20:21)
[2018-12-13] MEDS: INSULIN LISPRO 300 UNITS/3 ML VIAL. SQ SCH ×2 (11:57→17:52)
[2018-12-13] MEDS: VANCOMYCIN PER PHARMACY MC PRN ×2 (14:17→19:30)
[2018-12-13 15:00] VITALS: BP 126/61
[2018-12-13 19:00] VITALS: BP 103/47
--- NOTE | 2018-12-13 19:30 | NUR ---
Pharmacy Vancomycin Dosing Note S: Consulted to monitor and dose vancomycin started 12/12/18. O: RENA BROTHERS is a 58 year old F with Pneumonia, COPD . Other Antibiotics: ZOSYN 3.375G IV Q6HRS LABS: Last BUN: 15 Last Creatinine: 0.6 Creatinine Clearance: 110 mL/min Last WBC: 5.7 Last Procalcitonin: 0.13 Tmax (past 24 hours): 98 Microbiology: BLOOD CX (12/12): NGTD Drug Levels: Last Trough level: 26.0 on 12/13/18 at 1800 Last dose given 12/13/18 at 0600 and 0930 Vancomycin Dosing: Dosing Weight: Actual Target Trough: 15-20 A: Based on: 12/13 AM doses were given 3 1/2 hours apart, so this trough level cannot be trusted. Will change regimen to q12hrs but recheck trough tomorrow. P: 1. Change Vancomycin 1250 mg IV q12h 2. Follow up Trough level on 12/14/18 at 0930 3. Pharmacy will continue to monitor, follow and adjust therapy as needed. CHRIS CALL [facility], 12/13/18 1930
[2018-12-13] MEDS: SIMVASTATIN 10 MG TABLET PO SCH (20:20)
[2018-12-13] MEDS: QUEtiapine 100 MG TABLET. PO SCH (20:21)
[2018-12-13] MEDS: LACTOBACILLUS RHAMNOSUS GG 1 CAPSULE. PO SCH (20:21)
[2018-12-13 23:00] VITALS: BP 110/54
[2018-12-14 03:00] VITALS: BP 113/56
[2018-12-14] MEDS: PIPERACILLIN/TAZOBACTAM 3.375 GM in IV NORMAL SALINE 50ML 50 ML IV SCH ×4 (05:20→23:54)
[2018-12-14] MEDS: ALPRAZolam 0.5 MG TABLET PO PRN ×2 (05:20→14:21)
[2018-12-14] MEDS: methylPREDNISolone SOD SUCC PF 40 MG/ML VIAL. IV SCH ×3 (05:20→22:05)
[2018-12-14] MEDS: HEPARIN for SUB-Q USE 5,000 UNIT/ML VIAL. SQ SCH ×3 (05:30→22:07)
[2018-12-14 06:48] VITALS: BP 119/61
[2018-12-14] MEDS: IPRATRPIUM/ALBUTEROL 0.5/2.5MG 3 ML NEBU. NEB SCH ×4 (07:20→20:00)
[2018-12-14] MEDS: BUDESONIDE 0.5 MG/2 ML NEBU. NEB SCH ×2 (07:21→20:00)
[2018-12-14] MEDS: INSULIN LISPRO 300 UNITS/3 ML VIAL. SQ SCH ×3 (08:00→17:03)
[2018-12-14] MEDS: FERROUS SULFATE 325 MG TABLET. PO SCH ×2 (08:49→16:47)
[2018-12-14] MEDS: ASPIRIN ENTERIC COATED 81 MG TABLET.DR. PO SCH (08:49)
[2018-12-14] MEDS: LACTOBACILLUS RHAMNOSUS GG 1 CAPSULE. PO SCH ×2 (08:49→22:03)
[2018-12-14] MEDS: FUROSEMIDE 20 MG TABLET PO SCH (08:49)
[2018-12-14] MEDS: POLYETHYLENE GLYCOL 3350 17 GM PACKET. PO SCH (08:49)
[2018-12-14] MEDS: metFORMIN 500 MG TABLET PO SCH ×2 (08:50→16:47)
[2018-12-14] MEDS: METOPROLOL SUCC 24HR ER 25 MG TAB.ER.24H. PO SCH (08:51)
[2018-12-14] MEDS ORDERED: INSULIN LISPRO 300 UNITS/3 ML VIAL. SQ ONE (09:00)
[2018-12-14] MEDS: NYSTATIN TOPICAL POWDER 15GM BOTTLE. TP SCH ×2 (09:02→21:00)
[2018-12-14] MEDS: VANCOMYCIN 1.25 GM in IV NORMAL SALINE 250ML 250 ML IV SCH (09:06)
[2018-12-14 09:52] LABS: VANC TR 18.1 mcg/mL (10.0-20.0)
[2018-12-14] MEDS: VANCOMYCIN PER PHARMACY MC PRN ×2 (10:37→10:45)
--- NOTE | 2018-12-14 10:39 | NUR ---
Pharmacy Vancomycin Dosing Note S: Consulted to monitor and dose vancomycin started 12/12/18. O: RENA BROTHERS is a 58 year old F with Pneumonia, COPD . Other Antibiotics: ZOSYN 3.375G IV Q6HRS LABS: Last BUN: 15 Last Creatinine: 0.6 Creatinine Clearance: 110 mL/min Last WBC: 5.7 Last Procalcitonin: 0.13 Tmax (past 24 hours): 98.1 Microbiology: BLOOD CX (12/12): NGTD I/O: 1250/3200 Drug Levels: Last Trough level: 18.1 on 12/14/18 at 0920 (time adjusted trough ~20) Last dose given 12/13/18 at 2022 Vancomycin Dosing: Dosing Weight: Actual Target Trough: 15-20 A: Based on: TROUGH and potential for further accumulation P: 1. Adjust Vancomycin to 1,000 mg IV q12h 2. Follow up Trough level in 5 days if needed 3. Pharmacy will continue to monitor, follow and adjust therapy as needed. Micki Stratton RPH, 12/14/18 [id number]
[2018-12-14 10:43] VITALS: BP 113/61
[2018-12-14] MEDS ORDERED: FLU VAX QS 2019-20 (36MOS+)/PF 0.5 ML SYRINGE. VAX IM ONE (11:00)
--- NOTE | 2018-12-14 11:50 | PDOC ---
[employer] PROGRESS NOTE Chief Complaint Chief Complaint COPD exacerbation Afib with RVR History of Present Illness History of Present Illness 12/14/18 Pt was seen and examined at bedside Was resting upon examination Normal sinus rhythm observed 1 to 1 observation EF = 60-65% Insulin ordered in the morning due to hyperglycemia 12/13/18 Pt was seen and examined today at bedside Now in normal sinus rhythm due to Cardizem Was in pleasant disposition Was able to state her age EF = 60-65% Vitals/I&O Vitals/I&O: Vital Signs Date Time Temp Pulse Resp B/P (MAP) Pulse Ox O2 Delivery O2 Flow Rate FiO2 12/14/18 11:05 93 Nasal Cannula 5.0 12/14/18 10:43 97.9 98 19 113/61 (78) 97.9 I & O 12/13/18 12/13/18 12/14/18 15:00 23:00 07:00 Intake Total 900 ml 250 ml 100 ml Output Total 1175 ml 2025 ml Balance -275 ml -1775 ml 100 ml Physical Exam General: Alert, Oriented X3, Cooperative, No acute distress, mild distress, Other ([place]) Heart: Regular rate, Normal S1, Normal S2, No murmurs Lungs: Clear, Other Abdomen: Soft, No tenderness Extremities: Normal pulses, Other (1-2+ bilateral LE edema ) Labs Labs: Laboratory Tests Test 12/13/18 11:54 12/13/18 17:37 12/13/18 18:00 12/14/18 06:52 Glucose (Fingerstick) 338 mg/dL (70-99) 203 mg/dL (70-99) 452 mg/dL (70-99) Vancomycin Level Trough 26.0 mcg/mL (10.0-20.0) Vancomycin Last Dose Date Unk Vancomycin Last Dose Time Unk Test 12/14/18 09:20 Vancomycin Level Trough 18.1 mcg/mL (10.0-20.0) Vancomycin Last Dose Date 12/13/18 Vancomycin Last Dose Time 2200 Review of Systems Review of Systems: No nausea, no vomiting No chest pain, no palpitations Assessment and Plan Assessmemt and Plan Problems Medical Problems: (1) Atrial fibrillation with RVR Status: Acute (2) COPD exacerbation Status: Acute Assessment Atrial fibrillation with RVR COPD exacerbation Dyspnea Hypoxia Plan Cardiac monitoring O2 per nasal cannula Sliding scale + scheduled insulin IV vancomycin PRN Labs DVT prophylaxis DNR Labs Comment Review of Relevant I have reviewed the following items ana (where applicable) has been applied. Medications: Current Medications Medications (Trade) Dose Ordered Sig/[place] Route PRN Reason Start Time Stop Time Status Last Admin Dose Admin Vancomycin HCl (Vancomycin Trough Level) 1 each 1X ONCE MC 12/13/18 18:00 12/13/18 18:01 DC 12/13/18 18:00 Insulin Human Lispro (HumaLOG) 0-7 UNITS TIDWMEALS SQ 12/13/18 12:00 12/13/18 17:52 Lactobacillus Rhamnosus (Culturelle) 1 cap BID PO 12/13/18 21:00 12/14/18 08:49 Furosemide (Lasix) 20 mg 1X ONCE IVP 12/13/18 16:15 12/13/18 16:16 DC 12/13/18 16:18 Vancomycin HCl 1.25 gm/Sodium Chloride 250 ml @ 166.667 mls/hr Q12H IV 12/13/18 22:00 12/14/18 12:00 12/14/18 09:06 Vancomycin HCl (Vancomycin Trough Level) 1 each 1X ONCE MC 12/14/18 09:30 12/14/18 09:31 DC 12/14/18 09:02 Diltiazem HCl (Cardizem 24hr Cd) 120 mg DAILY PO 12/13/18 21:00 12/14/18 08:50 Insulin Human Lispro (HumaLOG) 30 units 1X ONCE SQ 12/14/18 09:00 12/14/18 09:01 DC 12/14/18 09:00 PARTHA EPPS III DO Dec 14, 2018 11:50
--- NOTE | 2018-12-14 13:01 | NUR ---
SS following up with discharge planning. SS phoned and faxed updated clinical to [facility], ; fax [phone]. SS will continue to follow for discharge planning.
--- NOTE | 2018-12-14 13:12 | PDOC ---
PULMONARY PROGRESS NOTES Subjective sleepy Vitals Vital Signs Date Time Temp Pulse Resp B/P (MAP) Pulse Ox O2 Delivery O2 Flow Rate FiO2 12/14/18 11:05 93 Nasal Cannula 5.0 12/14/18 10:43 97.9 98 19 113/61 (78) 97.9 General: No acute distress Lungs: Clear Cardiovascular: S1, S2 Abdomen: Soft, Non-tender Extremities: Other (1=edema) Skin: Warm Labs Laboratory Tests Test 12/12/18 22:52 12/13/18 01:01 12/13/18 07:10 12/13/18 07:58 Glucose (Fingerstick) 488 mg/dL (70-99) 423 mg/dL (70-99) 248 mg/dL (70-99) White Blood Count 5.7 x10^3/uL (4.0-11.0) Red Blood Count 3.55 x10^6/uL (3.50-5.40) Hemoglobin 8.9 g/dL (12.0-15.5) Hematocrit 28.6 % (36.0-47.0) Mean Corpuscular Volume 81 fL (79-100) Mean Corpuscular Hemoglobin 25 pg (25-35) Mean Corpuscular Hemoglobin Concent 31 g/dL (31-37) Red Cell Distribution Width 17.7 % (11.5-14.5) Platelet Count 146 x10^3/uL (140-400) Neutrophils (%) (Auto) 91 % (31-73) Lymphocytes (%) (Auto) 7 % (24-48) Monocytes (%) (Auto) 2 % (0-9) Eosinophils (%) (Auto) 0 % (0-3) Basophils (%) (Auto) 0 % (0-3) Neutrophils # (Auto) 5.1 x10^3/uL (1.8-7.7) Lymphocytes # (Auto) 0.4 x10^3/uL (1.0-4.8) Monocytes # (Auto) 0.1 x10^3/uL (0.0-1.1) Eosinophils # (Auto) 0.0 x10^3/uL (0.0-0.7) Basophils # (Auto) 0.0 x10^3/uL (0.0-0.2) Sodium Level 142 mmol/L (136-145) Potassium Level 4.6 mmol/L (3.5-5.1) Chloride Level 100 mmol/L (98-107) Carbon Dioxide Level 42 mmol/L (21-32) Anion Gap 0 (6-14) Blood Urea Nitrogen 15 mg/dL (7-20) Creatinine 0.6 mg/dL (0.6-1.0) Estimated GFR (Cockcroft-Gault) 102.0 Glucose Level 239 mg/dL (70-99) Calcium Level 8.5 mg/dL (8.5-10.1) Procalcitonin 0.13 ng/mL (0.00-0.10) Test 12/13/18 11:54 12/13/18 17:37 12/13/18 18:00 12/14/18 06:52 Glucose (Fingerstick) 338 mg/dL (70-99) 203 mg/dL (70-99) 452 mg/dL (70-99) Vancomycin Level Trough 26.0 mcg/mL (10.0-20.0) Vancomycin Last Dose Date Unk Vancomycin Last Dose Time Unk Test 12/14/18 09:20 Vancomycin Level Trough 18.1 mcg/mL (10.0-20.0) Vancomycin Last Dose Date 12/13/18 Vancomycin Last Dose Time 2199 Laboratory Tests Test 12/13/18 17:37 12/13/18 18:00 12/14/18 06:52 12/14/18 09:20 Glucose (Fingerstick) 203 mg/dL (70-99) 452 mg/dL (70-99) Vancomycin Level Trough 26.0 mcg/mL (10.0-20.0) 18.1 mcg/mL (10.0-20.0) Vancomycin Last Dose Date Unk 12/13/18 Vancomycin Last Dose Time Unk 220 Medications Active Scripts Medications Dose Route/Sig Max Daily Dose Days Date Category Lasix (Furosemide) 20 Mg Tablet 20 Mg PO DAILY 11/24/18 Reported Metoprolol Succinate ( Xl ) (Metoprolol Succinate) 25 Mg Tab.er.24h 50 Mg PO DAILY 11/24/18 Reported Acetaminophen 650 Mg/20.3 Ml Solution 650 Mg FT PRN PRN 11/24/18 Reported Miralax (Polyethylene Glycol 3350) 17 Gm Powd.pack 1 Pkt PO DAILY 11/24/18 Reported Ferrous Sulfate 325 Mg Tablet 325 Mg PO BID 11/24/18 Reported Seroquel (Quetiapine Fumarate) 200 Mg Tablet 200 Mg PO HS 11/24/18 Reported Melatonin 3 Mg Tablet 3 Mg PO HS 11/24/18 Reported Proair Hfa Inhaler (Albuterol Sulfate) 8.5 Gm Hfa.aer.ad 1 Puff INH PRN Q6HRS PRN 10/13/18 Rx Proair Hfa Inhaler (Albuterol Sulfate) 8.5 Gm Hfa.aer.ad 2 Puff INH PRN Q6HRS PRN 03/03/18 Rx Colace 2-in-1 Tablet (Sennosides/Docusate Sodium) 1 Each Tablet 1 Each PO BID PRN 01/02/18 Rx Glucophage (Metformin Hcl) 500 Mg Tablet 1,000 Mg PO BIDWMEALS 05/20/15 Rx Simvastatin 10 Mg Tablet 10 Mg PO HS 10/13/14 Reported Symbicort 160-4.5 Mcg Inhaler (Budesonide/Formoterol Fumarate) 10.2 Gm Hfa.aer.ad 2 Puff IH BID 08/13/14 Reported Albuterol Sulfate Hfa Inhaler (Albuterol Sulfate) 8.5 Gm Hfa.aer.ad 2 Puff INH Q4HRS 08/13/14 Reported Impression . 1. Bdzxy-od-amoxpwq hypoxic respiratory failure secondary to combination of umgmt-ts-dqxflhf diastolic heart failure and chronic obstructive pulmonary disease exacerbation. 2. Atrial fibrillation with rapid ventricular response, triggering diastolic heart failure and hypoxia. 3. Underlying morbid obesity with compensated hypercapnic respiratory acidosis. 4. Underlying chronic obstructive pulmonary disease. 5. Abnormal chest x-ray, more favoring congestive heart failure. Plan . 1. Continue with present oxygen, keep saturation 92% and above. 2. IV diuresis. 3. Follow chest x-ray to see the response to treatment. 4. Continue with IV steroids, low dose. 5. Continue with DuoNebs. 6. Pulmicort. 7. Currently on metoprolol 50 p.o. daily. bronchospasm better, ok to continue 8. Antibiotics can be deescalated soon. Clinically, I do not think any pneumonia. 9. Discussed with RN. We will follow along with you. CLEM SCHAEFER MD Dec 14, 2018 13:12
--- NOTE | 2018-12-14 14:09 | PDOC ---
CARDIO Progress Notes Date and Time Date of Service 12/14/18 Time of Evaluation 1400 Subjective Subjective: Other (c/o difficulty breathing) Vitals Vitals Vital Signs Date Time Temp Pulse Resp B/P (MAP) Pulse Ox O2 Delivery O2 Flow Rate FiO2 12/14/18 11:05 93 Nasal Cannula 5.0 12/14/18 10:43 97.9 98 19 113/61 (78) 97.9 Weight Weight [ ] Input and Output Intake and Output Intake and Output 12/14/18 06:59 Intake Total 1250 ml Output Total 3200 ml Balance -1950 ml Intake Oral 600 ml IV Total 650 ml Output Urine Total 3200 ml # Voids 5 Laboratory Labs Laboratory Tests Test 12/13/18 17:37 12/13/18 18:00 12/14/18 06:52 12/14/18 09:20 Glucose (Fingerstick) 203 mg/dL (70-99) 452 mg/dL (70-99) Vancomycin Level Trough 26.0 mcg/mL (10.0-20.0) 18.1 mcg/mL (10.0-20.0) Vancomycin Last Dose Date Unk 12/13/18 Vancomycin Last Dose Time Unk 2200 Microbiology Micro Microbiology 12/12/18 Blood Culture - Preliminary, Resulted NO GROWTH AFTER 1 DAY Physical Exam HEENT: Neck Supple W Full Motion Chest: Symmetric LUNGS: Other (coarse, crackles throughout ) Heart: S1S2, RRR Abdomen: Soft N/T Extremities: Other (1+ bilateral LE edema ) Neurology: alert, other (agitated ) Assessment Assessment 1. Acute on chronic respiratory failure; multifactorial in the setting of CHF and AE COPD. Oxygen sats decreased. Attempting to place on BiPAP, but agitated. 2. Atrial fibrillation with RVR; converted back to SR and has been maintaining 3. Acute on chronic diastolic CHF; precipitated by COPD and RVR. Recent echo with preserved LV function 4. Mental retardation 5. Hypertension; controlled 6, Hyperlipidemia; statin therapy 7. Diabetes, II; uncontrolled Recommendations Needs further diuresis Continue BB for rate control ASA for stroke prevention. Probable poor candidate for OAC Supportive care Follow pulm recommendations JETT RIOS APRN Dec 14, 2018 14:09
[2018-12-14] MEDS ORDERED: FUROSEMIDE 40 MG/4 ML VIAL. IVP ONE (14:15)
[2018-12-14 14:44] VITALS: BP 134/84
[2018-12-14 16:11] LABS: BASE EXCESS ABG 10 mmol/L (-3-3); HCO3 ABG 38 mmol/L (21-28); PO2 ABG 69 mmHg (65-108); SAT O2 ABG 93 % (92-99)
[2018-12-14 16:16] LABS: FIO2 ABG 45; PCO2 ABG 74 mmHg (35-46)
[2018-12-14] MEDS ORDERED: ONDANSETRON PF 4 MG/2 ML VIAL. IVP PRN (18:30)
[2018-12-14] MEDS ORDERED: TEMAZEPAM 7.5 MG CAPSULE PO PRN (18:30)
[2018-12-14] MEDS ORDERED: ACETAMINOPHEN 500 MG TABLET PO PRN (18:30)
[2018-12-14] MEDS ORDERED: ALBUTEROL SULFATE 2.5 MG/3 ML NEBU. NEB PRN (18:30)
[2018-12-14] MEDS ORDERED: DEXTROSE 50% 25 GM / 50ML DISP.SYRIN. IV PRN (18:30)
[2018-12-14 18:47] VITALS: BP 122/61
[2018-12-14] MEDS: VANCOMYCIN 1 GM in IV NORMAL SALINE 250ML 250 ML IV SCH (22:02)
[2018-12-14] MEDS: QUEtiapine 100 MG TABLET. PO SCH (22:03)
[2018-12-14] MEDS: SIMVASTATIN 10 MG TABLET PO SCH (22:03)
[2018-12-14 22:23] VITALS: BP 117/53
[2018-12-15] VITALS (7 sets, daily range): BP systolic 85–136; BP diastolic 19–69
[2018-12-15] MEDS: PIPERACILLIN/TAZOBACTAM 3.375 GM in IV NORMAL SALINE 50ML 50 ML IV SCH ×3 (05:18→17:28)
[2018-12-15] MEDS: methylPREDNISolone SOD SUCC PF 40 MG/ML VIAL. IV SCH ×3 (05:18→22:00)
[2018-12-15] MEDS: HEPARIN for SUB-Q USE 5,000 UNIT/ML VIAL. SQ SCH ×3 (05:20→22:01)
--- NOTE | 2018-12-15 06:48 | PDOC ---
PULMONARY PROGRESS NOTES Subjective on bipap, slept all night, has xanax last night Vitals Vital Signs Date Time Temp Pulse Resp B/P (MAP) Pulse Ox O2 Delivery O2 Flow Rate FiO2 12/15/18 05:27 70 20 93/50 (64) 99 BiPAP/CPAP 12/15/18 03:00 96.4 8.0 96.4 General: No acute distress HEENT: Other (bipap mask on heent nc at perrl ) Lungs: Other (deminished bs) Cardiovascular: S1, S2 Abdomen: Soft, Non-tender Extremities: Other (1=edema) Skin: Warm Labs Laboratory Tests Test 12/13/18 07:10 12/13/18 07:58 12/13/18 11:54 12/13/18 17:37 White Blood Count 5.7 x10^3/uL (4.0-11.0) Red Blood Count 3.55 x10^6/uL (3.50-5.40) Hemoglobin 8.9 g/dL (12.0-15.5) Hematocrit 28.6 % (36.0-47.0) Mean Corpuscular Volume 81 fL (79-100) Mean Corpuscular Hemoglobin 25 pg (25-35) Mean Corpuscular Hemoglobin Concent 31 g/dL (31-37) Red Cell Distribution Width 17.7 % (11.5-14.5) Platelet Count 146 x10^3/uL (140-400) Neutrophils (%) (Auto) 91 % (31-73) Lymphocytes (%) (Auto) 7 % (24-48) Monocytes (%) (Auto) 2 % (0-9) Eosinophils (%) (Auto) 0 % (0-3) Basophils (%) (Auto) 0 % (0-3) Neutrophils # (Auto) 5.1 x10^3/uL (1.8-7.7) Lymphocytes # (Auto) 0.4 x10^3/uL (1.0-4.8) Monocytes # (Auto) 0.1 x10^3/uL (0.0-1.1) Eosinophils # (Auto) 0.0 x10^3/uL (0.0-0.7) Basophils # (Auto) 0.0 x10^3/uL (0.0-0.2) Sodium Level 142 mmol/L (136-145) Potassium Level 4.6 mmol/L (3.5-5.1) Chloride Level 100 mmol/L (98-107) Carbon Dioxide Level 42 mmol/L (21-32) Anion Gap 0 (6-14) Blood Urea Nitrogen 15 mg/dL (7-20) Creatinine 0.6 mg/dL (0.6-1.0) Estimated GFR (Cockcroft-Gault) 102.0 Glucose Level 239 mg/dL (70-99) Calcium Level 8.5 mg/dL (8.5-10.1) Procalcitonin 0.13 ng/mL (0.00-0.10) Glucose (Fingerstick) 248 mg/dL (70-99) 338 mg/dL (70-99) 203 mg/dL (70-99) Test 12/13/18 18:00 12/14/18 06:52 12/14/18 09:20 12/14/18 11:45 Vancomycin Level Trough 26.0 mcg/mL (10.0-20.0) 18.1 mcg/mL (10.0-20.0) Vancomycin Last Dose Date Unk 12/13/18 Vancomycin Last Dose Time Unk 2200 Glucose (Fingerstick) 452 mg/dL (70-99) 289 mg/dL (70-99) Test 12/14/18 16:15 12/14/18 16:41 12/14/18 21:56 O2 Saturation 93 % (92-99) Arterial Blood pH 7.33 (7.35-7.45) Arterial Blood pCO2 at Patient Temp 74 mmHg (35-46) Arterial Blood pO2 at Patient Temp 69 mmHg (65-108) Arterial Blood HCO3 38 mmol/L (21-28) Arterial Blood Base Excess 10 mmol/L (-3-3) FiO2 45 Glucose (Fingerstick) 177 mg/dL (70-99) 156 mg/dL (70-99) Laboratory Tests Test 12/14/18 06:52 12/14/18 09:20 12/14/18 11:45 12/14/18 16:15 Glucose (Fingerstick) 452 mg/dL (70-99) 289 mg/dL (70-99) Vancomycin Level Trough 18.1 mcg/mL (10.0-20.0) Vancomycin Last Dose Date 12/13/18 Vancomycin Last Dose Time 2200 O2 Saturation 93 % (92-99) Arterial Blood pH 7.33 (7.35-7.45) Arterial Blood pCO2 at Patient Temp 74 mmHg (35-46) Arterial Blood pO2 at Patient Temp 69 mmHg (65-108) Arterial Blood HCO3 38 mmol/L (21-28) Arterial Blood Base Excess 10 mmol/L (-3-3) FiO2 45 Test 12/14/18 16:41 12/14/18 21:56 Glucose (Fingerstick) 177 mg/dL (70-99) 156 mg/dL (70-99) Medications Active Scripts Medications Dose Route/Sig Max Daily Dose Days Date Category Lasix (Furosemide) 20 Mg Tablet 20 Mg PO DAILY 11/24/18 Reported Metoprolol Succinate ( Xl ) (Metoprolol Succinate) 25 Mg Tab.er.24h 50 Mg PO DAILY 11/24/18 Reported Acetaminophen 650 Mg/20.3 Ml Solution 650 Mg FT PRN PRN 11/24/18 Reported Miralax (Polyethylene Glycol 3350) 17 Gm Powd.pack 1 Pkt PO DAILY 11/24/18 Reported Ferrous Sulfate 325 Mg Tablet 325 Mg PO BID 11/24/18 Reported Seroquel (Quetiapine Fumarate) 200 Mg Tablet 200 Mg PO HS 11/24/18 Reported Melatonin 3 Mg Tablet 3 Mg PO HS 11/24/18 Reported Proair Hfa Inhaler (Albuterol Sulfate) 8.5 Gm Hfa.aer.ad 1 Puff INH PRN Q6HRS PRN 10/13/18 Rx Proair Hfa Inhaler (Albuterol Sulfate) 8.5 Gm Hfa.aer.ad 2 Puff INH PRN Q6HRS PRN 03/03/18 Rx Colace 2-in-1 Tablet (Sennosides/Docusate Sodium) 1 Each Tablet 1 Each PO BID PRN 01/02/18 Rx Glucophage (Metformin Hcl) 500 Mg Tablet 1,000 Mg PO BIDWMEALS 05/20/15 Rx Simvastatin 10 Mg Tablet 10 Mg PO HS 10/13/14 Reported Symbicort 160-4.5 Mcg Inhaler (Budesonide/Formoterol Fumarate) 10.2 Gm Hfa.aer.ad 2 Puff IH BID 08/13/14 Reported Albuterol Sulfate Hfa Inhaler (Albuterol Sulfate) 8.5 Gm Hfa.aer.ad 2 Puff INH Q4HRS 08/13/14 Reported Impression . 1. Oxpbr-el-kfvlmlo hypoxic respiratory failure secondary to combination of zoacc-do-kppkrnh diastolic heart failure and chronic obstructive pulmonary disease exacerbation. 2. Atrial fibrillation with rapid ventricular response, triggering diastolic heart failure and hypoxia. 3. Underlying morbid obesity with compensated hypercapnic respiratory acidosis. 4. Underlying chronic obstructive pulmonary disease. 5. Abnormal chest x-ray, more favoring congestive heart failure. Plan . 1. bipap prn during day, cont at night, setting reviewed, avoid oversedation 2. IV diuresis. monitor cr, k 3. Follow chest x-ray to see the response to treatment. 4. Continue solumedrol 40 q 8 hrs 5. Continue with DuoNebs. 6. Pulmicort. 7. Currently on metoprolol 50 p.o. daily. bronchospasm better, ok to continue 8. Antibiotics, dc vanc, cont zosyn for now 9. Discussed with RN. We will follow along with you. GEETA MCWILLIAMS MD Dec 15, 2018 06:48
[2018-12-15] MEDS: IPRATRPIUM/ALBUTEROL 0.5/2.5MG 3 ML NEBU. NEB SCH ×4 (07:50→19:53)
[2018-12-15] MEDS: BUDESONIDE 0.5 MG/2 ML NEBU. NEB SCH ×2 (07:50→19:53)
[2018-12-15] MEDS: POLYETHYLENE GLYCOL 3350 17 GM PACKET. PO SCH (09:00)
[2018-12-15 09:44] LABS: CALCIUM 8.3 mg/dL (8.5-10.1); GFR 56.6; POTASSIUM 4.9 mmol/L (3.5-5.1)
[2018-12-15] MEDS: VANCOMYCIN 1 GM in IV NORMAL SALINE 250ML 250 ML IV SCH (09:44)
[2018-12-15] MEDS: INSULIN LISPRO 300 UNITS/3 ML VIAL. SQ SCH ×3 (09:52→17:27)
[2018-12-15] MEDS: NYSTATIN TOPICAL POWDER 15GM BOTTLE. TP SCH ×2 (09:53→22:07)
[2018-12-15 10:15] LABS: BASE EXCESS ABG 13 mmol/L (-3-3); HCO3 ABG 45 mmol/L (21-28); PO2 ABG 65 mmHg (65-108); SAT O2 ABG 88 % (92-99)
[2018-12-15 10:18] LABS: PCO2 ABG 120 mmHg (35-46)
[2018-12-15 10:19] LABS: FIO2 ABG 40
[2018-12-15] MEDS: LACTOBACILLUS RHAMNOSUS GG 1 CAPSULE. PO SCH ×2 (11:43→21:59)
[2018-12-15] MEDS: FUROSEMIDE 20 MG TABLET PO SCH (11:43)
[2018-12-15] MEDS: FERROUS SULFATE 325 MG TABLET. PO SCH ×2 (11:43→17:19)
[2018-12-15] MEDS: ASPIRIN ENTERIC COATED 81 MG TABLET.DR. PO SCH (11:43)
[2018-12-15] MEDS: metFORMIN 500 MG TABLET PO SCH ×2 (11:44→17:19)
[2018-12-15] MEDS: METOPROLOL SUCC 24HR ER 25 MG TAB.ER.24H. PO SCH (11:44)
--- NOTE | 2018-12-15 12:00 | PDOC ---
[employer] PROGRESS NOTE Chief Complaint Chief Complaint COPD exacerbation Afib with RVR History of Present Illness History of Present Illness 12/15/18 Pt was seen and examined at bedside Was on bipap and asleep during examination NSR observed w/ rate of 81 1 to 1 observation EF = 60-75% D/w RN 12/14/18 Pt was seen and examined at bedside Was resting upon examination Normal sinus rhythm observed 1 to 1 observation EF = 60-65% Insulin ordered in the morning due to hyperglycemia 12/13/18 Pt was seen and examined today at bedside Now in normal sinus rhythm due to Cardizem Was in pleasant disposition Was able to state her age EF = 60-65% Vitals/I&O Vitals/I&O: Vital Signs Date Time Temp Pulse Resp B/P (MAP) Pulse Ox O2 Delivery O2 Flow Rate FiO2 12/15/18 11:44 87 112/59 12/15/18 11:00 20 93 BiPAP/CPAP 12/15/18 03:00 96.4 8.0 96.4 I & O 12/14/18 12/14/18 12/15/18 15:00 23:00 07:00 Intake Total 900 ml 500 ml 500 ml Output Total 275 ml 850 ml 100 ml Balance 625 ml -350 ml 400 ml Physical Exam General: Alert, Oriented X3, Cooperative, No acute distress, mild distress, Other (QAGAN TAYAGUNGIN) Heart: Regular rate, Normal S1, Normal S2, No murmurs Lungs: Clear Abdomen: Normal bowel sounds, Soft, No tenderness Extremities: Normal pulses, Other (1-2+ bilateral LE edema ) Labs Labs: Laboratory Tests Test 12/14/18 16:15 12/14/18 16:41 12/14/18 21:56 12/15/18 08:45 O2 Saturation 93 % (92-99) 88 % (92-99) Arterial Blood pH 7.33 (7.35-7.45) 7.19 (7.35-7.45) Arterial Blood pCO2 at Patient Temp 74 mmHg (35-46) 120 mmHg (35-46) Arterial Blood pO2 at Patient Temp 69 mmHg (65-108) 65 mmHg (65-108) Arterial Blood HCO3 38 mmol/L (21-28) 45 mmol/L (21-28) Arterial Blood Base Excess 10 mmol/L (-3-3) 13 mmol/L (-3-3) FiO2 45 40 Glucose (Fingerstick) 177 mg/dL (70-99) 156 mg/dL (70-99) Sodium Level 140 mmol/L (136-145) Potassium Level 4.9 mmol/L (3.5-5.1) Chloride Level 98 mmol/L (98-107) Carbon Dioxide Level 42 mmol/L (21-32) Anion Gap 0 (6-14) Blood Urea Nitrogen 40 mg/dL (7-20) Creatinine 1.0 mg/dL (0.6-1.0) Estimated GFR (Cockcroft-Gault) 56.6 Glucose Level 264 mg/dL (70-99) Calcium Level 8.3 mg/dL (8.5-10.1) Test 12/15/18 09:47 Glucose (Fingerstick) 232 mg/dL (70-99) Review of Systems Review of Systems: Unable to obtain ROS due to pt being asleep on bipap Assessment and Plan Assessmemt and Plan Problems Medical Problems: (1) Atrial fibrillation with RVR Status: Acute (2) COPD exacerbation Status: Acute Assessment Atrial fibrillation with RVR COPD exacerbation Dyspnea Hypoxia Plan Cardiac monitoring Duonebs Pulmicort O2 per nasal cannula Sliding scale + scheduled insulin Begin to de-escalate IV vancomycin Meds per cardio Labs DVT prophylaxis DNR Comment Review of Relevant I have reviewed the following items ana (where applicable) has been applied. Medications: Current Medications Medications (Trade) Dose Ordered Sig/[place] Route PRN Reason Start Time Stop Time Status Last Admin Dose Admin Vancomycin HCl 1 gm/Sodium Chloride 250 ml @ 250 mls/hr Q12H IV 12/14/18 21:00 12/15/18 09:44 Furosemide (Lasix) 40 mg 1X ONCE IVP 12/14/18 14:15 12/14/18 14:16 DC 12/14/18 14:21 Lorazepam (Ativan Inj) 0.25 mg 1X ONCE IV 12/14/18 16:45 12/14/18 16:46 DC 12/14/18 16:47 Insulin Human Lispro (HumaLOG) 0-9 UNITS TIDWMEALS SQ 12/15/18 08:00 12/15/18 09:52 PARTHA EPPS III DO Dec 15, 2018 12:00
--- NOTE | 2018-12-15 12:36 | PDOC ---
PROGRESS NOTES Subjective Subjective Patient seen and examined Objective Objective Vital Signs Date Time Temp Pulse Resp B/P (MAP) Pulse Ox O2 Delivery O2 Flow Rate FiO2 12/15/18 12:00 92 12/15/18 11:44 87 112/59 12/15/18 11:00 20 BiPAP/CPAP 12/15/18 03:00 96.4 8.0 96.4 Intake and Output 12/15/18 07:00 Intake Total 1900 ml Output Total 1225 ml Balance 675 ml Intake Oral 1600 ml IV Total 300 ml Output Urine Total 1225 ml Physical Exam Abdomen: Normal bowel sounds Heart: Regular rate General: mild distress Lungs: Other (mildly decreased breath sounds) Assessment Assessment Problems Medical Problems: (1) Atrial fibrillation with RVR Status: Acute (2) COPD exacerbation Status: Acute Acute on chronic respiratory failure. Patient appears more comfortable today. On BiPAP. Continue present treatment. Atrial fibrillation. Converted back to sinus rhythm. Continue present treatment. Acute on chronic heart failure. Recent echo with preserved LV systolic function. Continue as above. Hypertension. Improved. Hyperlipidemia on statins. Diabetes mellitus as per the primary service. Comment Review of Relevant I have reviewed the following items ana (where applicable) has been applied. Labs Laboratory Tests Test 12/13/18 17:37 12/13/18 18:00 12/14/18 06:52 12/14/18 09:20 Glucose (Fingerstick) 203 mg/dL (70-99) 452 mg/dL (70-99) Vancomycin Level Trough 26.0 mcg/mL (10.0-20.0) 18.1 mcg/mL (10.0-20.0) Vancomycin Last Dose Date Unk 12/13/18 Vancomycin Last Dose Time Unk 220 Test 12/14/18 11:45 12/14/18 16:15 12/14/18 16:41 12/14/18 21:56 Glucose (Fingerstick) 289 mg/dL (70-99) 177 mg/dL (70-99) 156 mg/dL (70-99) O2 Saturation 93 % (92-99) Arterial Blood pH 7.33 (7.35-7.45) Arterial Blood pCO2 at Patient Temp 74 mmHg (35-46) Arterial Blood pO2 at Patient Temp 69 mmHg (65-108) Arterial Blood HCO3 38 mmol/L (21-28) Arterial Blood Base Excess 10 mmol/L (-3-3) FiO2 45 Test 12/15/18 08:45 12/15/18 09:47 12/15/18 11:53 O2 Saturation 88 % (92-99) Arterial Blood pH 7.19 (7.35-7.45) Arterial Blood pCO2 at Patient Temp 120 mmHg (35-46) Arterial Blood pO2 at Patient Temp 65 mmHg (65-108) Arterial Blood HCO3 45 mmol/L (21-28) Arterial Blood Base Excess 13 mmol/L (-3-3) FiO2 40 Sodium Level 140 mmol/L (136-145) Potassium Level 4.9 mmol/L (3.5-5.1) Chloride Level 98 mmol/L (98-107) Carbon Dioxide Level 42 mmol/L (21-32) Anion Gap 0 (6-14) Blood Urea Nitrogen 40 mg/dL (7-20) Creatinine 1.0 mg/dL (0.6-1.0) Estimated GFR (Cockcroft-Gault) 56.6 Glucose Level 264 mg/dL (70-99) Calcium Level 8.3 mg/dL (8.5-10.1) Glucose (Fingerstick) 232 mg/dL (70-99) 239 mg/dL (70-99) Laboratory Tests Test 12/14/18 16:15 12/14/18 16:41 12/14/18 21:56 12/15/18 08:45 O2 Saturation 93 % (92-99) 88 % (92-99) Arterial Blood pH 7.33 (7.35-7.45) 7.19 (7.35-7.45) Arterial Blood pCO2 at Patient Temp 74 mmHg (35-46) 120 mmHg (35-46) Arterial Blood pO2 at Patient Temp 69 mmHg (65-108) 65 mmHg (65-108) Arterial Blood HCO3 38 mmol/L (21-28) 45 mmol/L (21-28) Arterial Blood Base Excess 10 mmol/L (-3-3) 13 mmol/L (-3-3) FiO2 45 40 Glucose (Fingerstick) 177 mg/dL (70-99) 156 mg/dL (70-99) Sodium Level 140 mmol/L (136-145) Potassium Level 4.9 mmol/L (3.5-5.1) Chloride Level 98 mmol/L (98-107) Carbon Dioxide Level 42 mmol/L (21-32) Anion Gap 0 (6-14) Blood Urea Nitrogen 40 mg/dL (7-20) Creatinine 1.0 mg/dL (0.6-1.0) Estimated GFR (Cockcroft-Gault) 56.6 Glucose Level 264 mg/dL (70-99) Calcium Level 8.3 mg/dL (8.5-10.1) Test 12/15/18 09:47 12/15/18 11:53 Glucose (Fingerstick) 232 mg/dL (70-99) 239 mg/dL (70-99) Microbiology 12/12/18 Blood Culture - Preliminary, Resulted NO GROWTH AFTER 2 DAYS Medications Current Medications Albuterol/ Ipratropium (Duoneb) 3 ml 1X ONCE NEB Last administered on 12/12/18at 09:16; Start 12/12/18 at 09:15; Stop 12/12/18 at 09:16; Status DC Methylprednisolone Sodium Succinate (SOLU-Medrol 125MG VIAL) 125 mg 1X ONCE IV Last administered on 12/12/18at 09:52; Start 12/12/18 at 09:15; Stop 12/12/18 at 09:16; Status DC Diltiazem HCl (Cardizem Iv Push) 10 mg 1X ONCE IVP Last administered on 12/12/18at 09:52; Start 12/12/18 at 09:15; Stop 12/12/18 at 09:16; Status DC Diltiazem HCl 125 mg/Dextrose 125 ml @ 5 mls/hr CONT PRN IV SEE I/O RECORD Last administered on 12/12/18at 09:51; Start 12/12/18 at 08:45; Stop 12/13/18 at 14:14; Status DC Piperacillin Sod/ Tazobactam Sod 3.375 gm/Sodium Chloride 50 ml @ 100 mls/hr 1X ONCE IV Last administered on 12/12/18at 12:15; Start 12/12/18 at 11:00; Stop 12/12/18 at 11:29; Status DC Vancomycin HCl 250 ml @ 250 mls/hr 1X ONCE IV Last administered on 12/12/18at 11:00; Start 12/12/18 at 11:00; Stop 12/12/18 at 11:59; Status DC Albuterol/ Ipratropium (Duoneb) 3 ml 1X ONCE NEB Last administered on 12/12/18 12:57; Start 12/12/18 at 12:45; Stop 12/12/18 at 12:46; Status DC Magnesium Sulfate 50 ml @ 25 mls/hr 1X ONCE IV Last administered on 12/12/18 15:23; Start 12/12/18 at 13:00; Stop 12/12/18 at 14:59; Status DC Metoprolol Succinate (Toprol Xl) 50 mg DAILY PO Last administered on 12/15/18 11:44; Start 12/12/18 at 14:00 Aspirin (Ecotrin) 81 mg DAILYWBKFT PO Last administered on 12/15/18 11:43; Start 12/12/18 at 14:30 Furosemide (Lasix) 20 mg 1X ONCE IVP Last administered on 12/12/18 15:21; Start 12/12/18 at 14:30; Stop 12/12/18 at 14:31; Status DC Potassium Chloride (Klor-Con) 20 meq 1X ONCE PO Last administered on 12/12/18at 15:09; Start 12/12/18 at 14:30; Stop 12/12/18 at 14:31; Status DC Ferrous Sulfate (Feosol) 325 mg BIDWMEALS PO Last administered on 12/15/18 11:43; Start 12/12/18 at 17:00 Furosemide (Lasix) 20 mg DAILY PO Last administered on 12/15/18at 11:43; Start 12/13/18 at 09:00 Metformin HCl (Glucophage) 1,000 mg BIDWMEALS PO Last administered on 12/15/18 11:44; Start 12/12/18 at 17:00 Polyethylene Glycol (miraLAX PACKET) 17 gm DAILY PO Last administered on 12/14/18at 08:49; Start 12/13/18 at 09:00 Senna/Docusate Sodium (Senna Plus) 1 tab PRN BID PRN PO CONSTIPATION; Start 12/12/18 at 15:30 Simvastatin (Zocor) 10 mg HS PO Last administered on 12/14/18at 22:03; Start 12/12/18 at 21:00 Albuterol Sulfate (Ventolin Neb Soln) 2.5 mg Q4HRS@0000,0400 NEB ; Start at 00:00; Stop 12/13/18 at 11:44; Status DC Non-Formulary Medication (Budesonide/ Formoterol Fumarate (Symbicort 160-4.5 Mcg Inhaler)) 2 puff BID IH ; Start 12/12/18 at 21:00; Status UNV Non-Formulary Medication (Melatonin ) 3 mg HS PO ; Start 12/12/18 at 21:00; Status UNV Quetiapine Fumarate (SEROquel) 200 mg QHS PO Last administered on 12/14/18at 22:03; Start 12/12/18 at 21:00 Albuterol/ Ipratropium (Duoneb) 3 ml RTQID NEB Last administered on 12/15/18at 11:59; Start 12/12/18 at 16:00 Methylprednisolone Sodium Succinate (SOLU-Medrol 40MG VIAL) 40 mg Q8HRS IV Last administered on 12/15/18at 05:18; Start 12/12/18 at 22:00 Vancomycin HCl (Vanco Per Pharmacy) 1 each PRN DAILY PRN MC SEE COMMENTS Last administered on 12/14/18at 10:45; Start 12/12/18 at 15:45 Piperacillin Sod/ Tazobactam Sod (Zosyn Per Pharmacy) 1 each PRN DAILY PRN MC SEE COMMENTS; Start 12/12/18 at 15:45 Heparin Sodium (Porcine) (Heparin Sodium) 5,000 unit Q8HRS SQ Last administered on 12/15/18at 05:20; Start 12/12/18 at 17:00 Budesonide (Pulmicort) 0.5 mg RTBID NEB Last administered on 12/15/18at 07:50; Start 12/12/18 at 20:00 Piperacillin Sod/ Tazobactam Sod 3.375 gm/Sodium Chloride 50 ml @ 100 mls/hr Q6HRS IV Last administered on 12/15/18at 11:44; Start 12/12/18 at 18:00 Alprazolam (Xanax) 0.5 mg PRN Q4HRS PRN PO ANXIETY / AGITATION Last administered on 12/14/18at 14:21; Start 12/12/18 at 17:45 Vancomycin HCl 2 gm/Sodium Chloride 500 ml @ 250 mls/hr 1X ONCE IV Last administered on 12/12/18at 22:47; Start 12/12/18 at 18:30; Stop 12/12/18 at 20:29; Status DC Vancomycin HCl 1.25 gm/Sodium Chloride 250 ml @ 166.667 mls/hr Q8H IV Last administered on 12/13/18at 09:35; Start 12/13/18 at 02:30; Stop 12/13/18 at 19:14; Status DC Vancomycin HCl (Vancomycin Trough Level) 1 each 1X ONCE MC Last administered on 12/13/18at 18:00; Start 12/13/18 at 18:00; Stop 12/13/18 at 18:01; Status DC Insulin Human Lispro (HumaLOG) 30 units 1X ONCE SQ Last administered on 12/13/18at 01:04; Start 12/13/18 at 01:00; Stop 12/13/18 at 01:01; Status DC Insulin Human Lispro (HumaLOG) 0-7 UNITS TIDWMEALS SQ Last administered on 12/14/18at 17:03; Start 12/13/18 at 12:00; Stop 12/14/18 at 18:32; Status DC Dextrose (Dextrose 50%-Water Syringe) 12.5 gm PRN Q15MIN PRN IV SEE COMMENTS; Start 12/13/18 at 09:30 Dextrose 250 ml PRN Q15MIN PRN IV SEE COMMENTS; Start 12/13/18 at 09:30; Status UNV Nystatin (Nystop) 1 timothy BID TP Last administered on 12/15/18at 09:53; Start 12/13/18 at 10:00 Furosemide (Lasix) 20 mg 1X ONCE IVP Last administered on 12/13/18at 11:47; Start 12/13/18 at 09:45; Stop 12/13/18 at 09:57; Status DC Lactobacillus Rhamnosus (Culturelle) 1 cap BID PO Last administered on at 11:43; Start 12/13/18 at 21:00 Furosemide (Lasix) 20 mg 1X ONCE IVP Last administered on 12/13/18at 16:18; Start 12/13/18 at 16:15; Stop 12/13/18 at 16:16; Status DC Vancomycin HCl 1.25 gm/Sodium Chloride 250 ml @ 166.667 mls/hr Q12H IV Last ad ministered on 12/14/18at 09:06; Start 12/13/18 at 22:00; Stop 12/14/18 at 12:00; Status DC Vancomycin HCl (Vancomycin Trough Level) 1 each 1X ONCE MC Last administered on 12/14/18at 09:02; Start 12/14/18 at 09:30; Stop 12/14/18 at 09:31; Status DC Diltiazem HCl (Cardizem 24hr Cd) 120 mg DAILY PO Last administered on 12/15/18at 11:43; Start 12/13/18 at 21:00 Insulin Human Lispro (HumaLOG) 30 units 1X ONCE SQ Last administered on 12/14/18at 09:00; Start 12/14/18 at 09:00; Stop 12/14/18 at 09:01; Status DC Vancomycin HCl 1 gm/Sodium Chloride 250 ml @ 250 mls/hr Q12H IV Last administered on 12/15/18at 09:44; Start 12/14/18 at 21:00 Influenza Virus Vaccine Quadrival (Afluria Quad 2019-20 (3yr Up) Syringe) 0.5 ml ONCE ONCE VAX IM Last administered on 12/14/18at 13:38; Start 12/14/18 at 11:00; Stop 12/14/18 at 11:01; Status DC Furosemide (Lasix) 40 mg 1X ONCE IVP Last administered on 12/14/18at 14:21; Start 12/14/18 at 14:15; Stop 12/14/18 at 14:16; Status DC Lorazepam (Ativan Inj) 0.25 mg 1X ONCE IV Last administered on 12/14/18at 16:47; Start 12/14/18 at 16:45; Stop 12/14/18 at 16:46; Status DC Temazepam (Restoril) 7.5 mg PRN QHS PRN PO INSOMNIA; Start 12/14/18 at 18:30 Ondansetron HCl (Zofran) 4 mg PRN Q6HRS PRN IVP NAUSEA/VOMITING; Start 12/14/18 at 18:30 Acetaminophen (Tylenol) 500 mg PRN Q6HRS PRN PO MILD PAIN / TEMP; Start 12/14/18 at 18:30 Insulin Human Lispro (HumaLOG) 0-9 UNITS TIDWMEALS SQ Last administered on 12/15/18at 09:52; Start 12/15/18 at 08:00 Dextrose (Dextrose 50%-Water Syringe) 12.5 gm PRN Q15MIN PRN IV SEE COMMENTS; Start 12/14/18 at 18:30 Albuterol Sulfate (Ventolin Neb Soln) 2.5 mg PRN Q4HRS PRN NEB SHORTNESS OF BREATH; Start 12/14/18 at 18:30 Active Scripts Active Proair Hfa Inhaler (Albuterol Sulfate) 8.5 Gm Hfa.aer.ad 1 Puff INH PRN Q6HRS PRN Proair Hfa Inhaler (Albuterol Sulfate) 8.5 Gm Hfa.aer.ad 2 Puff INH PRN Q6HRS PRN Colace 2-in-1 Tablet (Sennosides/Docusate Sodium) 1 Each Tablet 1 Each PO BID PRN Glucophage (Metformin Hcl) 500 Mg Tablet 1,000 Mg PO BIDWMEALS Reported Lasix (Furosemide) 20 Mg Tablet 20 Mg PO DAILY Metoprolol Succinate ( Xl ) (Metoprolol Succinate) 25 Mg Tab.er.24h 50 Mg PO DAILY Acetaminophen 650 Mg/20.3 Ml Solution 650 Mg FT PRN PRN Miralax (Polyethylene Glycol 3350) 17 Gm Powd.pack 1 Pkt PO DAILY Ferrous Sulfate 325 Mg Tablet 325 Mg PO BID Seroquel (Quetiapine Fumarate) 200 Mg Tablet 200 Mg PO HS Melatonin 3 Mg Tablet 3 Mg PO HS Simvastatin 10 Mg Tablet 10 Mg PO HS Symbicort 160-4.5 Mcg Inhaler (Budesonide/Formoterol Fumarate) 10.2 Gm Hfa.aer.ad 2 Puff IH BID Albuterol Sulfate Hfa Inhaler (Albuterol Sulfate) 8.5 Gm Hfa.aer.ad 2 Puff INH Q4HRS Vitals/I & O Vital Sign - Last 24 Hours 12/14/18 12/14/18 12/14/18 12/14/18 14:18 14:44 14:50 15:07 Pulse 90 Resp 19 B/P (MAP) 134/84 (101) Pulse Ox 92 80 98 92 O2 Delivery Nasal Cannula BiPAP/CPAP O2 Flow Rate 4.5 12/14/18 12/14/18 12/14/18 12/14/18 15:42 16:08 16:17 17:51 Pulse Ox 92 92 92 93 12/14/18 12/14/18 12/14/18 12/14/18 18:47 20:00 20:06 22:23 Temp 97.9 98.7 97.9 98.7 Pulse 83 80 Resp 32 29 B/P (MAP) 122/61 (81) 117/53 (74) Pulse Ox 90 93 88 O2 Delivery BiPAP/CPAP Bi-pap BiPAP/CPAP O2 Flow Rate 8.0 12/14/18 12/14/18 12/15/18 12/15/18 22:44 23:25 01:00 03:00 Temp 96.4 96.4 Pulse 74 Resp 28 B/P (MAP) 85/47 (60) Pulse Ox 83 94 94 87 O2 Delivery BiPAP/CPAP O2 Flow Rate 8.0 12/15/18 12/15/18 12/15/18 12/15/18 03:21 05:05 05:27 07:00 Pulse 70 75 Resp 20 20 B/P (MAP) 93/50 (64) 86/48 (61) Pulse Ox 90 100 99 99 O2 Delivery BiPAP/CPAP BiPAP/CPAP 12/15/18 12/15/18 12/15/18 12/15/18 07:52 07:53 07:53 08:00 Pulse Ox 98 98 98 O2 Delivery BiPAP/CPAP BiPAP/CPAP Bi-pap 12/15/18 12/15/18 12/15/18 12/15/18 11:00 11:43 11:44 12:00 Pulse 87 87 87 Resp 20 B/P (MAP) 112/59 (76) 112/59 112/59 Pulse Ox 93 92 O2 Delivery BiPAP/CPAP Intake and Output 12/14/18 12/14/18 12/15/18 15:00 23:00 07:00 Intake Total 900 ml 500 ml 500 ml Output Total 275 ml 850 ml 100 ml Balance 625 ml -350 ml 400 ml AYAKA VILLALPANDO MD Dec 15, 2018 12:36
[2018-12-15] MEDS: QUEtiapine 100 MG TABLET. PO SCH (21:59)
[2018-12-15] MEDS: SIMVASTATIN 10 MG TABLET PO SCH (21:59)
[2018-12-16] MEDS: PIPERACILLIN/TAZOBACTAM 3.375 GM in IV NORMAL SALINE 50ML 50 ML IV SCH ×4 (00:44→17:33)
[2018-12-16 02:50] VITALS: BP 111/50
[2018-12-16] MEDS: methylPREDNISolone SOD SUCC PF 40 MG/ML VIAL. IV SCH ×2 (05:10→20:34)
[2018-12-16 05:21] LABS: CALCIUM 8.3 mg/dL (8.5-10.1); CREATININE 0.8 mg/dL (0.6-1.0); GFR 73.2; POTASSIUM 5.1 mmol/L (3.5-5.1)
[2018-12-16] MEDS: HEPARIN for SUB-Q USE 5,000 UNIT/ML VIAL. SQ SCH ×3 (05:21→20:58)
[2018-12-16 07:00] VITALS: BP 113/58
--- NOTE | 2018-12-16 07:00 | PDOC ---
PULMONARY PROGRESS NOTES Subjective on bipap, more alert, wants water. Vitals Vital Signs Date Time Temp Pulse Resp B/P (MAP) Pulse Ox O2 Delivery O2 Flow Rate FiO2 12/16/18 05:20 94 12/16/18 02:50 97.6 84 26 111/50 (70) BiPAP/CPAP 97.6 12/15/18 22:22 15.0 General: No acute distress HEENT: Other Lungs: Other Cardiovascular: S1, S2 Abdomen: Soft, Non-tender Extremities: Other (1=edema) Skin: Warm Labs Laboratory Tests Test 12/14/18 09:20 12/14/18 11:45 12/14/18 16:15 12/14/18 16:41 Vancomycin Level Trough 18.1 mcg/mL (10.0-20.0) Vancomycin Last Dose Date 12/13/18 Vancomycin Last Dose Time 2200 Glucose (Fingerstick) 289 mg/dL (70-99) 177 mg/dL (70-99) O2 Saturation 93 % (92-99) Arterial Blood pH 7.33 (7.35-7.45) Arterial Blood pCO2 at Patient Temp 74 mmHg (35-46) Arterial Blood pO2 at Patient Temp 69 mmHg (65-108) Arterial Blood HCO3 38 mmol/L (21-28) Arterial Blood Base Excess 10 mmol/L (-3-3) FiO2 45 Test 12/14/18 21:56 12/15/18 08:45 12/15/18 09:47 12/15/18 11:53 Glucose (Fingerstick) 156 mg/dL (70-99) 232 mg/dL (70-99) 239 mg/dL (70-99) O2 Saturation 88 % (92-99) Arterial Blood pH 7.19 (7.35-7.45) Arterial Blood pCO2 at Patient Temp 120 mmHg (35-46) Arterial Blood pO2 at Patient Temp 65 mmHg (65-108) Arterial Blood HCO3 45 mmol/L (21-28) Arterial Blood Base Excess 13 mmol/L (-3-3) FiO2 40 Sodium Level 140 mmol/L (136-145) Potassium Level 4.9 mmol/L (3.5-5.1) Chloride Level 98 mmol/L (98-107) Carbon Dioxide Level 42 mmol/L (21-32) Anion Gap 0 (6-14) Blood Urea Nitrogen 40 mg/dL (7-20) Creatinine 1.0 mg/dL (0.6-1.0) Estimated GFR (Cockcroft-Gault) 56.6 Glucose Level 264 mg/dL (70-99) Calcium Level 8.3 mg/dL (8.5-10.1) Test 12/15/18 17:24 12/15/18 22:08 12/16/18 04:00 12/16/18 06:53 Glucose (Fingerstick) 245 mg/dL (70-99) 225 mg/dL (70-99) 279 mg/dL (70-99) Sodium Level 140 mmol/L (136-145) Potassium Level 5.1 mmol/L (3.5-5.1) Chloride Level 98 mmol/L (98-107) Carbon Dioxide Level 38 mmol/L (21-32) Anion Gap 4 (6-14) Blood Urea Nitrogen 36 mg/dL (7-20) Creatinine 0.8 mg/dL (0.6-1.0) Estimated GFR (Cockcroft-Gault) 73.2 Glucose Level 273 mg/dL (70-99) Calcium Level 8.3 mg/dL (8.5-10.1) Laboratory Tests Test 12/15/18 08:45 12/15/18 09:47 12/15/18 11:53 12/15/18 17:24 O2 Saturation 88 % (92-99) Arterial Blood pH 7.19 (7.35-7.45) Arterial Blood pCO2 at Patient Temp 120 mmHg (35-46) Arterial Blood pO2 at Patient Temp 65 mmHg (65-108) Arterial Blood HCO3 45 mmol/L (21-28) Arterial Blood Base Excess 13 mmol/L (-3-3) FiO2 40 Sodium Level 140 mmol/L (136-145) Potassium Level 4.9 mmol/L (3.5-5.1) Chloride Level 98 mmol/L (98-107) Carbon Dioxide Level 42 mmol/L (21-32) Anion Gap 0 (6-14) Blood Urea Nitrogen 40 mg/dL (7-20) Creatinine 1.0 mg/dL (0.6-1.0) Estimated GFR (Cockcroft-Gault) 56.6 Glucose Level 264 mg/dL (70-99) Calcium Level 8.3 mg/dL (8.5-10.1) Glucose (Fingerstick) 232 mg/dL (70-99) 239 mg/dL (70-99) 245 mg/dL (70-99) Test 12/15/18 22:08 12/16/18 04:00 12/16/18 06:53 Glucose (Fingerstick) 225 mg/dL (70-99) 279 mg/dL (70-99) Sodium Level 140 mmol/L (136-145) Potassium Level 5.1 mmol/L (3.5-5.1) Chloride Level 98 mmol/L (98-107) Carbon Dioxide Level 38 mmol/L (21-32) Anion Gap 4 (6-14) Blood Urea Nitrogen 36 mg/dL (7-20) Creatinine 0.8 mg/dL (0.6-1.0) Estimated GFR (Cockcroft-Gault) 73.2 Glucose Level 273 mg/dL (70-99) Calcium Level 8.3 mg/dL (8.5-10.1) Medications Active Scripts Medications Dose Route/Sig Max Daily Dose Days Date Category Lasix (Furosemide) 20 Mg Tablet 20 Mg PO DAILY 11/24/18 Reported Metoprolol Succinate ( Xl ) (Metoprolol Succinate) 25 Mg Tab.er.24h 50 Mg PO DAILY 11/24/18 Reported Acetaminophen 650 Mg/20.3 Ml Solution 650 Mg FT PRN PRN 11/24/18 Reported Miralax (Polyethylene Glycol 3350) 17 Gm Powd.pack 1 Pkt PO DAILY 11/24/18 Reported Ferrous Sulfate 325 Mg Tablet 325 Mg PO BID 11/24/18 Reported Seroquel (Quetiapine Fumarate) 200 Mg Tablet 200 Mg PO HS 11/24/18 Reported Melatonin 3 Mg Tablet 3 Mg PO HS 11/24/18 Reported Proair Hfa Inhaler (Albuterol Sulfate) 8.5 Gm Hfa.aer.ad 1 Puff INH PRN Q6HRS PRN 10/13/18 Rx Proair Hfa Inhaler (Albuterol Sulfate) 8.5 Gm Hfa.aer.ad 2 Puff INH PRN Q6HRS PRN 03/03/18 Rx Colace 2-in-1 Tablet (Sennosides/Docusate Sodium) 1 Each Tablet 1 Each PO BID PRN 01/02/18 Rx Glucophage (Metformin Hcl) 500 Mg Tablet 1,000 Mg PO BIDWMEALS 05/20/15 Rx Simvastatin 10 Mg Tablet 10 Mg PO HS 10/13/14 Reported Symbicort 160-4.5 Mcg Inhaler (Budesonide/Formoterol Fumarate) 10.2 Gm Hfa.aer.ad 2 Puff IH BID 08/13/14 Reported Albuterol Sulfate Hfa Inhaler (Albuterol Sulfate) 8.5 Gm Hfa.aer.ad 2 Puff INH Q4HRS 08/13/14 Reported Impression . 1. [id number] hypoxic respiratory failure secondary to combination of [id number] diastolic heart failure and chronic obstructive pulmonary disease exacerbation. 2. Atrial fibrillation with rapid ventricular response, triggering diastolic heart failure and hypoxia. 3. Underlying morbid obesity with compensated hypercapnic respiratory acidosis. 4. Underlying chronic obstructive pulmonary disease. 5. Abnormal chest x-ray, more favoring congestive heart failure. Plan . 1. cont bipap until more stable, setting reviewed, abg improving, avoid oversedation 2. IV diuresis. monitor cr, k 3. Follow chest x-ray to see the response to treatment. 4. Change solumedrol to 40 q 12 hrs 5. Continue with DuoNebs. 6. Pulmicort. 7. Currently on metoprolol 50 p.o. daily. bronchospasm better, ok to continue 8. Antibiotics, vanc dced , cont zosyn for now 9. ? palliative care consult. Discussed with RN. We will follow along with you. GEETA MCWILLIAMS MD Dec 16, 2018 07:00
[2018-12-16] MEDS: METOPROLOL SUCC 24HR ER 25 MG TAB.ER.24H. PO SCH (08:44)
[2018-12-16] MEDS: POLYETHYLENE GLYCOL 3350 17 GM PACKET. PO SCH (08:45)
[2018-12-16] MEDS: LACTOBACILLUS RHAMNOSUS GG 1 CAPSULE. PO SCH ×2 (08:45→20:34)
[2018-12-16] MEDS: metFORMIN 500 MG TABLET PO SCH ×2 (08:45→17:34)
[2018-12-16] MEDS: ASPIRIN ENTERIC COATED 81 MG TABLET.DR. PO SCH (08:45)
[2018-12-16] MEDS: FERROUS SULFATE 325 MG TABLET. PO SCH ×2 (08:45→17:34)
[2018-12-16] MEDS: FUROSEMIDE 20 MG TABLET PO SCH (08:45)
[2018-12-16] MEDS: NYSTATIN TOPICAL POWDER 15GM BOTTLE. TP SCH ×2 (08:47→20:35)
[2018-12-16] MEDS: INSULIN LISPRO 300 UNITS/3 ML VIAL. SQ SCH ×3 (08:49→17:45)
[2018-12-16] MEDS: BUDESONIDE 0.5 MG/2 ML NEBU. NEB SCH ×2 (09:19→20:15)
[2018-12-16] MEDS: IPRATRPIUM/ALBUTEROL 0.5/2.5MG 3 ML NEBU. NEB SCH ×4 (09:19→20:15)
[2018-12-16 09:37] LABS: BASE EXCESS ABG 11 mmol/L (-3-3); HCO3 ABG 40 mmol/L (21-28); PO2 ABG 73 mmHg (65-108); SAT O2 ABG 93 % (92-99)
[2018-12-16 09:40] LABS: FIO2 ABG 40; PCO2 ABG 85 mmHg (35-46)
[2018-12-16 11:00] VITALS: BP 107/52
--- NOTE | 2018-12-16 12:16 | PDOC ---
[employer] PROGRESS NOTE Chief Complaint Chief Complaint COPD exacerbation Afib with RVR History of Present Illness History of Present Illness 12/16/18 Pt was seen and examined at bedside Pt was sleeping On bipap during examination (Bipap settin/8, 35% O2) NSR observed with rate of 80 Chart and labs reviewed ABG is 7.29, up from 7.19 ABG CO2 is 85, down from 120 EF = 60-75% 1 to 1 observation D/w RN 12/15/18 Pt was seen and examined at bedside Was on bipap and asleep during examination NSR observed w/ rate of 81 1 to 1 observation Charts and labs reviewed ABG is 7.19, down from 7.33 EF = 60-75% D/w RN 12/14/18 Pt was seen and examined at bedside Was resting upon examination Normal sinus rhythm observed 1 to 1 observation EF = 60-65% Insulin ordered in the morning due to hyperglycemia 12/13/18 Pt was seen and examined today at bedside Now in normal sinus rhythm due to Cardizem Was in pleasant disposition Was able to state her age EF = 60-65% Vitals/I&O Vitals/I&O: Vital Signs Date Time Temp Pulse Resp B/P (MAP) Pulse Ox O2 Delivery O2 Flow Rate FiO2 12/16/18 11:00 97.6 80 26 107/52 (70) 96 BiPAP/CPAP 97.6 12/16/18 09:15 5.0 I & O 12/15/18 12/15/18 12/16/18 15:00 23:00 07:00 Intake Total 50 ml 100 ml Output Total 750 ml 950 ml Balance -700 ml -850 ml Physical Exam General: mild distress Heart: Regular rate Lungs: Other Abdomen: Normal bowel sounds Extremities: Normal pulses, Other (1-2+ bilateral LE edema ) Labs Labs: Laboratory Tests Test 12/15/18 17:24 12/15/18 22:08 12/16/18 04:00 12/16/18 06:53 Glucose (Fingerstick) 245 mg/dL (70-99) 225 mg/dL (70-99) 279 mg/dL (70-99) Sodium Level 140 mmol/L (136-145) Potassium Level 5.1 mmol/L (3.5-5.1) Chloride Level 98 mmol/L (98-107) Carbon Dioxide Level 38 mmol/L (21-32) Anion Gap 4 (6-14) Blood Urea Nitrogen 36 mg/dL (7-20) Creatinine 0.8 mg/dL (0.6-1.0) Estimated GFR (Cockcroft-Gault) 73.2 Glucose Level 273 mg/dL (70-99) Calcium Level 8.3 mg/dL (8.5-10.1) Test 12/16/18 09:10 O2 Saturation 93 % (92-99) Arterial Blood pH 7.29 (7.35-7.45) Arterial Blood pCO2 at Patient Temp 85 mmHg (35-46) Arterial Blood pO2 at Patient Temp 73 mmHg (65-108) Arterial Blood HCO3 40 mmol/L (21-28) Arterial Blood Base Excess 11 mmol/L (-3-3) FiO2 40 Review of Systems Review of Systems: Unable to obtain ROS as pt was asleep Assessment and Plan Assessmemt and Plan Problems Medical Problems: (1) Atrial fibrillation with RVR Status: Acute (2) COPD exacerbation Status: Acute Assessment Atrial fibrillation with RVR COPD exacerbation Dyspnea Hypoxia Plan Cardiac monitoring Duonebs Pulmicort O2 per nasal cannula IV Zosyn Sliding scale + scheduled insulin Meds per cardio Labs DVT prophylaxis DNR Comment Review of Relevant I have reviewed the following items ana (where applicable) has been applied. PARTHA EPPS III DO Dec 16, 2018 12:16
--- NOTE | 2018-12-16 13:35 | PDOC ---
PROGRESS NOTES Subjective Subjective Patient seen and examined She is more comfortable today. Objective Objective Vital Signs Date Time Temp Pulse Resp B/P (MAP) Pulse Ox O2 Delivery O2 Flow Rate FiO2 12/16/18 12:26 99 12/16/18 11:00 97.6 80 26 107/52 (70) BiPAP/CPAP 97.6 12/16/18 09:15 5.0 Intake and Output 12/16/18 07:00 Intake Total 150 ml Output Total 1700 ml Balance -1550 ml Intake Oral 100 ml IV Total 50 ml Output Urine Total 1700 ml Physical Exam Abdomen: Normal bowel sounds Heart: Regular rate General: mild distress Lungs: Other (mildly decreased breath sounds) Assessment Assessment Problems Medical Problems: (1) Atrial fibrillation with RVR Status: Acute (2) COPD exacerbation Status: Acute Acute on chronic respiratory failure. Patient appears more comfortable today. On BiPAP. Continue present treatment. Atrial fibrillation. Converted back to sinus rhythm. Continue present treatment. Acute on chronic heart failure. Recent echo with preserved LV systolic function. Continue as above. Hypertension. Improved. Hyperlipidemia on statins. Diabetes mellitus as per the primary service. Comment Review of Relevant I have reviewed the following items ana (where applicable) has been applied. Labs Laboratory Tests Test 12/14/18 16:15 12/14/18 16:41 12/14/18 21:56 12/15/18 08:45 O2 Saturation 93 % (92-99) 88 % (92-99) Arterial Blood pH 7.33 (7.35-7.45) 7.19 (7.35-7.45) Arterial Blood pCO2 at Patient Temp 74 mmHg (35-46) 120 mmHg (35-46) Arterial Blood pO2 at Patient Temp 69 mmHg (65-108) 65 mmHg (65-108) Arterial Blood HCO3 38 mmol/L (21-28) 45 mmol/L (21-28) Arterial Blood Base Excess 10 mmol/L (-3-3) 13 mmol/L (-3-3) FiO2 45 40 Glucose (Fingerstick) 177 mg/dL (70-99) 156 mg/dL (70-99) Sodium Level 140 mmol/L (136-145) Potassium Level 4.9 mmol/L (3.5-5.1) Chloride Level 98 mmol/L (98-107) Carbon Dioxide Level 42 mmol/L (21-32) Anion Gap 0 (6-14) Blood Urea Nitrogen 40 mg/dL (7-20) Creatinine 1.0 mg/dL (0.6-1.0) Estimated GFR (Cockcroft-Gault) 56.6 Glucose Level 264 mg/dL (70-99) Calcium Level 8.3 mg/dL (8.5-10.1) Test 12/15/18 09:47 12/15/18 11:53 12/15/18 17:24 12/15/18 22:08 Glucose (Fingerstick) 232 mg/dL (70-99) 239 mg/dL (70-99) 245 mg/dL (70-99) 225 mg/dL (70-99) Test 12/16/18 04:00 12/16/18 06:53 12/16/18 09:10 12/16/18 11:38 Sodium Level 140 mmol/L (136-145) Potassium Level 5.1 mmol/L (3.5-5.1) Chloride Level 98 mmol/L (98-107) Carbon Dioxide Level 38 mmol/L (21-32) Anion Gap 4 (6-14) Blood Urea Nitrogen 36 mg/dL (7-20) Creatinine 0.8 mg/dL (0.6-1.0) Estimated GFR (Cockcroft-Gault) 73.2 Glucose Level 273 mg/dL (70-99) Calcium Level 8.3 mg/dL (8.5-10.1) Glucose (Fingerstick) 279 mg/dL (70-99) 335 mg/dL (70-99) O2 Saturation 93 % (92-99) Arterial Blood pH 7.29 (7.35-7.45) Arterial Blood pCO2 at Patient Temp 85 mmHg (35-46) Arterial Blood pO2 at Patient Temp 73 mmHg (65-108) Arterial Blood HCO3 40 mmol/L (21-28) Arterial Blood Base Excess 11 mmol/L (-3-3) FiO2 40 Laboratory Tests Test 12/15/18 17:24 12/15/18 22:08 12/16/18 04:00 12/16/18 06:53 Glucose (Fingerstick) 245 mg/dL (70-99) 225 mg/dL (70-99) 279 mg/dL (70-99) Sodium Level 140 mmol/L (136-145) Potassium Level 5.1 mmol/L (3.5-5.1) Chloride Level 98 mmol/L (98-107) Carbon Dioxide Level 38 mmol/L (21-32) Anion Gap 4 (6-14) Blood Urea Nitrogen 36 mg/dL (7-20) Creatinine 0.8 mg/dL (0.6-1.0) Estimated GFR (Cockcroft-Gault) 73.2 Glucose Level 273 mg/dL (70-99) Calcium Level 8.3 mg/dL (8.5-10.1) Test 12/16/18 09:10 12/16/18 11:38 O2 Saturation 93 % (92-99) Arterial Blood pH 7.29 (7.35-7.45) Arterial Blood pCO2 at Patient Temp 85 mmHg (35-46) Arterial Blood pO2 at Patient Temp 73 mmHg (65-108) Arterial Blood HCO3 40 mmol/L (21-28) Arterial Blood Base Excess 11 mmol/L (-3-3) FiO2 40 Glucose (Fingerstick) 335 mg/dL (70-99) Microbiology 12/12/18 Blood Culture - Preliminary, Resulted NO GROWTH AFTER 3 DAYS Medications Current Medications Albuterol/ Ipratropium (Duoneb) 3 ml 1X ONCE NEB Last administered on 12/12/18at 09:16; Start 12/12/18 at 09:15; Stop 12/12/18 at 09:16; Status DC Methylprednisolone Sodium Succinate (SOLU-Medrol 125MG VIAL) 125 mg 1X ONCE IV Last administered on 12/12/18at 09:52; Start 12/12/18 at 09:15; Stop 12/12/18 at 09:16; Status DC Diltiazem HCl (Cardizem Iv Push) 10 mg 1X ONCE IVP Last administered on 12/12/18at 09:52; Start 12/12/18 at 09:15; Stop 12/12/18 at 09:16; Status DC Diltiazem HCl 125 mg/Dextrose 125 ml @ 5 mls/hr CONT PRN IV SEE I/O RECORD Last administered on 12/12/18at 09:51; Start 12/12/18 at 08:45; Stop 12/13/18 at 14:14; Status DC Piperacillin Sod/ Tazobactam Sod 3.375 gm/Sodium Chloride 50 ml @ 100 mls/hr 1X ONCE IV Last administered on 12/12/18 12:15; Start 12/12/18 at 11:00; Stop 12/12/18 at 11:29; Status DC Vancomycin HCl 250 ml @ 250 mls/hr 1X ONCE IV Last administered on 12/12/18at 11:00; Start 12/12/18 at 11:00; Stop 12/12/18 at 11:59; Status DC Albuterol/ Ipratropium (Duoneb) 3 ml 1X ONCE NEB Last administered on 12/12/18 12:57; Start 12/12/18 at 12:45; Stop 12/12/18 at 12:46; Status DC Magnesium Sulfate 50 ml @ 25 mls/hr 1X ONCE IV Last administered on 12/12/18 15:23; Start 12/12/18 at 13:00; Stop 12/12/18 at 14:59; Status DC Metoprolol Succinate (Toprol Xl) 50 mg DAILY PO Last administered on 12/16/18 08:44; Start 12/12/18 at 14:00 Aspirin (Ecotrin) 81 mg DAILYWBKFT PO Last administered on 12/16/18 08:45; Start 12/12/18 at 14:30 Furosemide (Lasix) 20 mg 1X ONCE IVP Last administered on 12/12/18 15:21; Start 12/12/18 at 14:30; Stop 12/12/18 at 14:31; Status DC Potassium Chloride (Klor-Con) 20 meq 1X ONCE PO Last administered on 12/12/18 15:09; Start 12/12/18 at 14:30; Stop 12/12/18 at 14:31; Status DC Ferrous Sulfate (Feosol) 325 mg BIDWMEALS PO Last administered on 12/16/18 08:45; Start 12/12/18 at 17:00 Furosemide (Lasix) 20 mg DAILY PO Last administered on 12/16/18 08:45; Start 12/13/18 at 09:00 Metformin HCl (Glucophage) 1,000 mg BIDWMEALS PO Last administered on 12/16/18 08:45; Start 12/12/18 at 17:00 Polyethylene Glycol (miraLAX PACKET) 17 gm DAILY PO Last administered on 12/16/18 08:45; Start 12/13/18 at 09:00 Senna/Docusate Sodium (Senna Plus) 1 tab PRN BID PRN PO CONSTIPATION Last administered on 12/16/18 08:44; Start 12/12/18 at 15:30 Simvastatin (Zocor) 10 mg HS PO Last administered on 12/15/18at 21:59; Start 12/12/18 at 21:00 Albuterol Sulfate (Ventolin Neb Soln) 2.5 mg Q4HRS@0000,0400 NEB ; Start 12/13/18 at 00:00; Stop 12/13/18 at 11:44; Status DC Non-Formulary Medication (Budesonide/ Formoterol Fumarate (Symbicort 160-4.5 Mcg Inhaler)) 2 puff BID IH ; Start 12/12/18 at 21:00; Status UNV Non-Formulary Medication (Melatonin ) 3 mg HS PO ; Start 12/12/18 at 21:00; Status UNV Quetiapine Fumarate (SEROquel) 200 mg QHS PO Last administered on 12/15/18at 21:59; Start 12/12/18 at 21:00 Albuterol/ Ipratropium (Duoneb) 3 ml RTQID NEB Last administered on 12/16/18at 12:24; Start 12/12/18 at 16:00 Methylprednisolone Sodium Succinate (SOLU-Medrol 40MG VIAL) 40 mg Q8HRS IV Last administered on 12/16/18 05:10; Start 12/12/18 at 22:00; Stop 12/16/18 at 10:57; Status DC Vancomycin HCl (Vanco Per Pharmacy) 1 each PRN DAILY PRN MC SEE COMMENTS Last administered on 12/14/18at 10:45; Start 12/12/18 at 15:45; Stop 12/15/18 at 13:10; Status DC Piperacillin Sod/ Tazobactam Sod (Zosyn Per Pharmacy) 1 each PRN DAILY PRN MC SEE COMMENTS; Start 12/12/18 at 15:45 Heparin Sodium (Porcine) (Heparin Sodium) 5,000 unit Q8HRS SQ Last administered on 12/16/18at 05:21; Start 12/12/18 at 17:00 Budesonide (Pulmicort) 0.5 mg RTBID NEB Last administered on 9/29/19at 09:19; Start 12/12/18 at 20:00 Piperacillin Sod/ Tazobactam Sod 3.375 gm/Sodium Chloride 50 ml @ 100 mls/hr Q6HRS IV Last administered on 12/16/18at 12:01; Start 12/12/18 at 18:00 Alprazolam (Xanax) 0.5 mg PRN Q4HRS PRN PO ANXIETY / AGITATION Last administered on 12/14/18at 14:21; Start 12/12/18 at 17:45 Vancomycin HCl 2 gm/Sodium Chloride 500 ml @ 250 mls/hr 1X ONCE IV Last administered on 12/12/18at 22:47; Start 12/12/18 at 18:30; Stop 12/12/18 at 20:29; Status DC Vancomycin HCl 1.25 gm/Sodium Chloride 250 ml @ 166.667 mls/hr Q8H IV Last administered on 12/13/18at 09:35; Start 12/13/18 at 02:30; Stop 12/13/18 at 19:14; Status DC Vancomycin HCl (Vancomycin Trough Level) 1 each 1X ONCE MC Last administered on 12/13/18at 18:00; Start 12/13/18 at 18:00; Stop 12/13/18 at 18:01; Status DC Insulin Human Lispro (HumaLOG) 30 units 1X ONCE SQ Last administered on 12/13/18at 01:04; Start 12/13/18 at 01:00; Stop 12/13/18 at 01:01; Status DC Insulin Human Lispro (HumaLOG) 0-7 UNITS TIDWMEALS SQ Last administered on 12/14/18at 17:03; Start 12/13/18 at 12:00; Stop 12/14/18 at 18:32; Status DC Dextrose (Dextrose 50%-Water Syringe) 12.5 gm PRN Q15MIN PRN IV SEE COMMENTS; Start 12/13/18 at 09:30 Dextrose 250 ml PRN Q15MIN PRN IV SEE COMMENTS; Start 12/13/18 at 09:30; Status UNV Nystatin (Nystop) 1 timothy BID TP Last administered on 12/16/18at 08:47; Start 12/13/18 at 10:00 Furosemide (Lasix) 20 mg 1X ONCE IVP Last administered on 12/13/18at 11:47; Start 12/13/18 at 09:45; Stop 12/13/18 at 09:57; Status DC Lactobacillus Rhamnosus (Culturelle) 1 cap BID PO Last administered on 12/16/18 08:45; Start 12/13/18 at 21:00 Furosemide (Lasix) 20 mg 1X ONCE IVP Last administered on 12/13/18 16:18; Start 12/13/18 at 16:15; Stop 12/13/18 at 16:16; Status DC Vancomycin HCl 1.25 gm/Sodium Chloride 250 ml @ 166.667 mls/hr Q12H IV Last administered on 12/14/18 09:06; Start 12/13/18 at 22:00; Stop 12/14/18 at 12:00; Status DC Vancomycin HCl (Vancomycin Trough Level) 1 each 1X ONCE MC Last administered on 12/14/18 09:02; Start 12/14/18 at 09:30; Stop 12/14/18 at 09:31; Status DC Diltiazem HCl (Cardizem 24hr Cd) 120 mg DAILY PO Last administered on 12/16/18 08:45; Start 12/13/18 at 21:00 Insulin Human Lispro (HumaLOG) 30 units 1X ONCE SQ Last administered on 12/14/18 09:00; Start 12/14/18 at 09:00; Stop 12/14/18 at 09:01; Status DC Vancomycin HCl 1 gm/Sodium Chloride 250 ml @ 250 mls/hr Q12H IV Last administered on 12/15/18 09:44; Start 12/14/18 at 21:00; Stop 12/15/18 at 13:10; Status DC Influenza Virus Vaccine Quadrival (Afluria Quad 2019-20 (3yr Up) Syringe) 0.5 ml ONCE ONCE VAX IM Last administered on 12/14/18 13:38; Start 12/14/18 at 11:00; Stop 12/14/18 at 11:01; Status DC Furosemide (Lasix) 40 mg 1X ONCE IVP Last administered on 12/14/18 14:21; Start 12/14/18 at 14:15; Stop 12/14/18 at 14:16; Status DC Lorazepam (Ativan Inj) 0.25 mg 1X ONCE IV Last administered on 9/27/19at 16:47; Start 12/14/18 at 16:45; Stop 12/14/18 at 16:46; Status DC Temazepam (Restoril) 7.5 mg PRN QHS PRN PO INSOMNIA; Start 12/14/18 at 18:30 Ondansetron HCl (Zofran) 4 mg PRN Q6HRS PRN IVP NAUSEA/VOMITING; Start 12/14/18 at 18:30 Acetaminophen (Tylenol) 500 mg PRN Q6HRS PRN PO MILD PAIN / TEMP; Start 12/14/18 at 18:30 Insulin Human Lispro (HumaLOG) 0-9 UNITS TIDWMEALS SQ Last administered on 12/16/18at 12:08; Start 12/15/18 at 08:00 Dextrose (Dextrose 50%-Water Syringe) 12.5 gm PRN Q15MIN PRN IV SEE COMMENTS; Start 12/14/18 at 18:30; Stop 12/15/18 at 12:40; Status DC Albuterol Sulfate (Ventolin Neb Soln) 2.5 mg PRN Q4HRS PRN NEB SHORTNESS OF BREATH; Start 12/14/18 at 18:30 Methylprednisolone Sodium Succinate (SOLU-Medrol 40MG VIAL) 40 mg Q12HR IV ; Start 12/16/18 at 21:00 Active Scripts Active Proair Hfa Inhaler (Albuterol Sulfate) 8.5 Gm Hfa.aer.ad 1 Puff INH PRN Q6HRS PRN Proair Hfa Inhaler (Albuterol Sulfate) 8.5 Gm Hfa.aer.ad 2 Puff INH PRN Q6HRS PRN Colace 2-in-1 Tablet (Sennosides/Docusate Sodium) 1 Each Tablet 1 Each PO BID PRN Glucophage (Metformin Hcl) 500 Mg Tablet 1,000 Mg PO BIDWMEALS Reported Lasix (Furosemide) 20 Mg Tablet 20 Mg PO DAILY Metoprolol Succinate ( Xl ) (Metoprolol Succinate) 25 Mg Tab.er.24h 50 Mg PO DAILY Acetaminophen 650 Mg/20.3 Ml Solution 650 Mg FT PRN PRN Miralax (Polyethylene Glycol 3350) 17 Gm Powd.pack 1 Pkt PO DAILY Ferrous Sulfate 325 Mg Tablet 325 Mg PO BID Seroquel (Quetiapine Fumarate) 200 Mg Tablet 200 Mg PO HS Melatonin 3 Mg Tablet 3 Mg PO HS Simvastatin 10 Mg Tablet 10 Mg PO HS Symbicort 160-4.5 Mcg Inhaler (Budesonide/Formoterol Fumarate) 10.2 Gm Hfa.aer.ad 2 Puff IH BID Albuterol Sulfate Hfa Inhaler (Albuterol Sulfate) 8.5 Gm Hfa.aer.ad 2 Puff INH Q4HRS Vitals/I & O Vital Sign - Last 24 Hours 12/15/18 12/15/18 12/15/18 12/15/18 15:00 15:47 19:04 19:33 Temp 98.5 98.5 Pulse 81 90 Resp 20 20 B/P (MAP) 119/19 (52) 136/69 (91) Pulse Ox 95 97 94 O2 Delivery BiPAP/CPAP Venturi Mask Venturi Mask O2 Flow Rate 15.0 15.0 12/15/18 12/15/18 12/15/18 12/16/18 20:01 22:22 23:54 02:28 Temp 97.8 97.8 Pulse 86 Resp 16 B/P (MAP) 106/48 (67) Pulse Ox 92 93 90 90 O2 Delivery Venturi Mask Venturi Mask O2 Flow Rate 15.0 12/16/18 12/16/18 12/16/18 12/16/18 02:50 05:20 07:00 08:00 Temp 97.6 97.6 97.6 97.6 Pulse 84 82 Resp 26 26 B/P (MAP) 111/50 (70) 113/58 (76) Pulse Ox 94 94 95 O2 Delivery BiPAP/CPAP BiPAP/CPAP Bi-pap 12/16/18 12/16/18 12/16/18 12/16/18 08:44 08:45 09:15 11:00 Temp 97.6 97.6 Pulse 82 82 80 Resp 26 B/P (MAP) 113/58 113/58 107/52 (70) Pulse Ox 95 96 O2 Delivery Nasal Cannula BiPAP/CPAP O2 Flow Rate 5.0 12/16/18 12:26 Pulse Ox 99 Intake and Output 12/15/18 12/15/18 12/16/18 15:00 23:00 07:00 Intake Total 50 ml 100 ml Output Total 750 ml 950 ml Balance -700 ml -850 ml AYAKA VILLALPANDO MD Dec 16, 2018 13:35
[2018-12-16 15:00] VITALS: BP 109/52
[2018-12-16] MEDS: ALPRAZolam 0.5 MG TABLET PO PRN ×2 (15:29→20:34)
[2018-12-16 19:06] VITALS: BP 117/59
--- NOTE | 2018-12-16 19:30 | NUR ---
daughter tali wants bipap off and on carlton mask. so abg's are ordered. and daughter just left. wants called with results. goal is co2 60. so she is more comfortable per tali. will update and tali. lcrn
--- NOTE | 2018-12-16 19:30 | NUR ---
SISTER JODY WANTED HER SISTER OFF THE BIPAP FOR A WHILE.MARYLOU AND I EXPLAINED ABOUT PCO2 BUILDS UP WHEN SHE IS OFF THE BIPAP. GOT ABG'S PER MARYLOU AND SISTER JODY. PCO2 WAS 67. PT'S BOYFRIEND AND HIS SON CAME TO VISIT. JODY LEFT. SATS WERE 98% ON 3 LITERS NASAL CANULA. PT TOOK HER MEDS. LISTENED TO THE TALKING RESPONDED TO CAN YOU GIVE ME A SMILE. SHE DID. LEFT PT ON CANNULA WHILE COMPANY WAS HERE THEN CALLED RT WHO PUT HER ON BIPAP. CALLED AND REPORTED THE ABOVE TO JODY. JODY WANT PALLATIVE CARE PAT CALLED 12/17. SHE DOESNT WANT TO SEE HER SISTER HAVING TO WEAR THE BIPAP, LCRN
[2018-12-16 19:46] LABS: BASE EXCESS ABG 15 mmol/L (-3-3); HCO3 ABG 42 mmol/L (21-28); PO2 ABG 76 mmHg (65-108); SAT O2 ABG 95 % (92-99)
[2018-12-16 20:07] LABS: PCO2 ABG 67 mmHg (35-46)
[2018-12-16] MEDS: SIMVASTATIN 10 MG TABLET PO SCH (20:34)
[2018-12-16] MEDS: QUEtiapine 100 MG TABLET. PO SCH (20:34)
[2018-12-16 22:00] VITALS: BP 83/44
[2018-12-17] MEDS: PIPERACILLIN/TAZOBACTAM 3.375 GM in IV NORMAL SALINE 50ML 50 ML IV SCH ×2 (00:49→05:32)
[2018-12-17 02:58] VITALS: BP 107/56
[2018-12-17 04:17] LABS: BASO % 1 % (0-3); EOS % 1 % (0-3); HEMATOCRIT 28.4 % (36.0-47.0); HEMOGLOBIN 8.6 g/dL (12.0-15.5); LYMPH # 0.3 x10^3/uL (1.0-4.8); LYMPH % 9 % (24-48); MEAN CORPUSCULAR HEMOGLOBIN 25 pg (25-35); MEAN CORPUSCULAR HGB CONC 30 g/dL (31-37); MEAN CORPUSCULAR VOLUME 82 fL (79-100); MONO # 0.1 x10^3/uL (0.0-1.1); MONO % 3 % (0-9); NEUT # 3.6 x10^3/uL (1.8-7.7); NEUT % 88 % (31-73); PLATELET COUNT 147 x10^3/uL (140-400); RED BLOOD COUNT 3.46 x10^6/uL (3.50-5.40); RED CELL DISTRIBUTION WIDTH 18.7 % (11.5-14.5); WHITE BLOOD COUNT 4.1 x10^3/uL (4.0-11.0)
[2018-12-17 04:38] LABS: CALCIUM 8.2 mg/dL (8.5-10.1); CREATININE 0.8 mg/dL (0.6-1.0); GFR 73.2; POTASSIUM 5.2 mmol/L (3.5-5.1)
[2018-12-17] MEDS: HEPARIN for SUB-Q USE 5,000 UNIT/ML VIAL. SQ SCH (05:33)
[2018-12-17 06:57] VITALS: BP 136/64
[2018-12-17] MEDS: BUDESONIDE 0.5 MG/2 ML NEBU. NEB SCH (07:24)
[2018-12-17] MEDS: IPRATRPIUM/ALBUTEROL 0.5/2.5MG 3 ML NEBU. NEB SCH ×2 (07:25→11:55)
[2018-12-17] MEDS: methylPREDNISolone SOD SUCC PF 40 MG/ML VIAL. IV SCH (08:43)
[2018-12-17] MEDS: ALPRAZolam 0.5 MG TABLET PO PRN (08:50)
[2018-12-17] MEDS: FERROUS SULFATE 325 MG TABLET. PO SCH (08:50)
[2018-12-17] MEDS: metFORMIN 500 MG TABLET PO SCH (08:51)
[2018-12-17] MEDS: METOPROLOL SUCC 24HR ER 25 MG TAB.ER.24H. PO SCH (08:51)
[2018-12-17] MEDS: ASPIRIN ENTERIC COATED 81 MG TABLET.DR. PO SCH (08:51)
[2018-12-17] MEDS: FUROSEMIDE 20 MG TABLET PO SCH (08:51)
[2018-12-17] MEDS: LACTOBACILLUS RHAMNOSUS GG 1 CAPSULE. PO SCH (08:51)
[2018-12-17] MEDS: INSULIN LISPRO 300 UNITS/3 ML VIAL. SQ SCH (08:54)
[2018-12-17] MEDS: NYSTATIN TOPICAL POWDER 15GM BOTTLE. TP SCH (08:56)
[2018-12-17] MEDS: POLYETHYLENE GLYCOL 3350 17 GM PACKET. PO SCH (08:59)
[2018-12-17] MEDS ORDERED: MORPHINE SULFATE/PF 30 ML IV PRN (11:00)
[2018-12-17] MEDS ORDERED: NALOXONE 0.4 MG/ML VIAL. IV PRN (11:00)
[2018-12-17] MEDS ORDERED: IV NORMAL SALINE 1000ML BAG 1,000 ML IV SCH (11:00)
[2018-12-17] MEDS ORDERED: MORPHINE SULFATE 10 MG/ML VIAL. IV PRN (11:15)
[2018-12-17] MEDS ORDERED: ACETAMINOPHEN 650 MG/20.3 ML SOLUTION. PO PRN (11:30)
[2018-12-17] MEDS ORDERED: ONDANSETRON PF 4 MG/2 ML VIAL. IV PRN (11:30)
[2018-12-17] MEDS ORDERED: MORPHINE SULFATE 20 MG/ML CONC SOLUTION. PO/SL PRN ×2 (11:30)
[2018-12-17] MEDS ORDERED: HALOPERIDOL LACTATE 5 MG/ML VIAL. IVP PRN ×3 (11:30)
[2018-12-17] MEDS ORDERED: MORPHINE SULFATE 4 MG/ML VIAL. IV PRN (11:30)
[2018-12-17] MEDS ORDERED: SODIUM PHOSPHATES 19/7GM 133 ML ENEMA. PR PRN (11:30)
[2018-12-17] MEDS ORDERED: ACETAMINOPHEN 325 MG TABLET. PO PRN (11:30)
[2018-12-17] MEDS ORDERED: SCOPOLAMINE 1.5MG PATCH. TD PRN (11:30)
[2018-12-17] MEDS ORDERED: ATROPINE 1% OPHTH SOLUTION 5ML BOTTLE. SL PRN (11:30)
[2018-12-17] MEDS ORDERED: PROCHLORPERAZINE 10 MG/2 ML VIAL. IV PRN (11:30)
[2018-12-17] MEDS ORDERED: ACETAMINOPHEN 650 MG SUPP.RECT. PR PRN (11:30)
[2018-12-17] MEDS ORDERED: HYDROmorphone 2 MG/ML VIAL IV PRN ×2 (11:30)
[2018-12-17] MEDS ORDERED: fentaNYL PF VIAL 100 MCG/2 ML VIAL IV PRN ×3 (11:30)
[2018-12-17] MEDS ORDERED: BISACODYL 10 MG SUPP.RECT. PR PRN (11:30)
[2018-12-17] MEDS ORDERED: MORPHINE SULFATE 2 MG/ML VIAL. IV PRN (11:30)
--- NOTE | 2018-12-17 11:33 | PDOC ---
PULMONARY PROGRESS NOTES Subjective taken off bipap this am per family request, more alert, wants water. Vitals Vital Signs Date Time Temp Pulse Resp B/P (MAP) Pulse Ox O2 Delivery O2 Flow Rate FiO2 12/17/18 11:10 91 Nasal Cannula 2.0 12/17/18 08:51 77 136/64 12/17/18 06:57 97.5 26 97.5 General: No acute distress HEENT: Other Lungs: Other Cardiovascular: S1, S2 Abdomen: Soft, Non-tender Extremities: Other (1=edema) Skin: Warm Labs Laboratory Tests Test 12/15/18 11:53 12/15/18 17:24 12/15/18 22:08 12/16/18 04:00 Glucose (Fingerstick) 239 mg/dL (70-99) 245 mg/dL (70-99) 225 mg/dL (70-99) Sodium Level 140 mmol/L (136-145) Potassium Level 5.1 mmol/L (3.5-5.1) Chloride Level 98 mmol/L (98-107) Carbon Dioxide Level 38 mmol/L (21-32) Anion Gap 4 (6-14) Blood Urea Nitrogen 36 mg/dL (7-20) Creatinine 0.8 mg/dL (0.6-1.0) Estimated GFR (Cockcroft-Gault) 73.2 Glucose Level 273 mg/dL (70-99) Calcium Level 8.3 mg/dL (8.5-10.1) Test 12/16/18 06:53 12/16/18 09:10 12/16/18 11:38 12/16/18 17:01 Glucose (Fingerstick) 279 mg/dL (70-99) 335 mg/dL (70-99) 171 mg/dL (70-99) O2 Saturation 93 % (92-99) Arterial Blood pH 7.29 (7.35-7.45) Arterial Blood pCO2 at Patient Temp 85 mmHg (35-46) Arterial Blood pO2 at Patient Temp 73 mmHg (65-108) Arterial Blood HCO3 40 mmol/L (21-28) Arterial Blood Base Excess 11 mmol/L (-3-3) FiO2 40 Test 12/16/18 19:48 12/16/18 20:38 12/17/18 03:20 12/17/18 07:01 O2 Saturation 95 % (92-99) Arterial Blood pH 7.41 (7.35-7.45) Arterial Blood pCO2 at Patient Temp 67 mmHg (35-46) Arterial Blood pO2 at Patient Temp 76 mmHg (65-108) Arterial Blood HCO3 42 mmol/L (21-28) Arterial Blood Base Excess 15 mmol/L (-3-3) Glucose (Fingerstick) 177 mg/dL (70-99) 297 mg/dL (70-99) White Blood Count 4.1 x10^3/uL (4.0-11.0) Red Blood Count 3.46 x10^6/uL (3.50-5.40) Hemoglobin 8.6 g/dL (12.0-15.5) Hematocrit 28.4 % (36.0-47.0) Mean Corpuscular Volume 82 fL (79-100) Mean Corpuscular Hemoglobin 25 pg (25-35) Mean Corpuscular Hemoglobin Concent 30 g/dL (31-37) Red Cell Distribution Width 18.7 % (11.5-14.5) Platelet Count 147 x10^3/uL (140-400) Neutrophils (%) (Auto) 88 % (31-73) Lymphocytes (%) (Auto) 9 % (24-48) Monocytes (%) (Auto) 3 % (0-9) Eosinophils (%) (Auto) 1 % (0-3) Basophils (%) (Auto) 1 % (0-3) Neutrophils # (Auto) 3.6 x10^3/uL (1.8-7.7) Lymphocytes # (Auto) 0.3 x10^3/uL (1.0-4.8) Monocytes # (Auto) 0.1 x10^3/uL (0.0-1.1) Eosinophils # (Auto) 0.0 x10^3/uL (0.0-0.7) Basophils # (Auto) 0.0 x10^3/uL (0.0-0.2) Sodium Level 140 mmol/L (136-145) Potassium Level 5.2 mmol/L (3.5-5.1) Chloride Level 98 mmol/L (98-107) Carbon Dioxide Level 38 mmol/L (21-32) Anion Gap 4 (6-14) Blood Urea Nitrogen 34 mg/dL (7-20) Creatinine 0.8 mg/dL (0.6-1.0) Estimated GFR (Cockcroft-Gault) 73.2 Glucose Level 302 mg/dL (70-99) Calcium Level 8.2 mg/dL (8.5-10.1) Laboratory Tests Test 12/16/18 11:38 12/16/18 17:01 12/16/18 19:48 12/16/18 20:38 Glucose (Fingerstick) 335 mg/dL (70-99) 171 mg/dL (70-99) 177 mg/dL (70-99) O2 Saturation 95 % (92-99) Arterial Blood pH 7.41 (7.35-7.45) Arterial Blood pCO2 at Patient Temp 67 mmHg (35-46) Arterial Blood pO2 at Patient Temp 76 mmHg (65-108) Arterial Blood HCO3 42 mmol/L (21-28) Arterial Blood Base Excess 15 mmol/L (-3-3) Test 12/17/18 03:20 12/17/18 07:01 White Blood Count 4.1 x10^3/uL (4.0-11.0) Red Blood Count 3.46 x10^6/uL (3.50-5.40) Hemoglobin 8.6 g/dL (12.0-15.5) Hematocrit 28.4 % (36.0-47.0) Mean Corpuscular Volume 82 fL (79-100) Mean Corpuscular Hemoglobin 25 pg (25-35) Mean Corpuscular Hemoglobin Concent 30 g/dL (31-37) Red Cell Distribution Width 18.7 % (11.5-14.5) Platelet Count 147 x10^3/uL (140-400) Neutrophils (%) (Auto) 88 % (31-73) Lymphocytes (%) (Auto) 9 % (24-48) Monocytes (%) (Auto) 3 % (0-9) Eosinophils (%) (Auto) 1 % (0-3) Basophils (%) (Auto) 1 % (0-3) Neutrophils # (Auto) 3.6 x10^3/uL (1.8-7.7) Lymphocytes # (Auto) 0.3 x10^3/uL (1.0-4.8) Monocytes # (Auto) 0.1 x10^3/uL (0.0-1.1) Eosinophils # (Auto) 0.0 x10^3/uL (0.0-0.7) Basophils # (Auto) 0.0 x10^3/uL (0.0-0.2) Sodium Level 140 mmol/L (136-145) Potassium Level 5.2 mmol/L (3.5-5.1) Chloride Level 98 mmol/L (98-107) Carbon Dioxide Level 38 mmol/L (21-32) Anion Gap 4 (6-14) Blood Urea Nitrogen 34 mg/dL (7-20) Creatinine 0.8 mg/dL (0.6-1.0) Estimated GFR (Cockcroft-Gault) 73.2 Glucose Level 302 mg/dL (70-99) Calcium Level 8.2 mg/dL (8.5-10.1) Glucose (Fingerstick) 297 mg/dL (70-99) Medications Active Scripts Medications Dose Route/Sig Max Daily Dose Days Date Category Lasix (Furosemide) 20 Mg Tablet 20 Mg PO DAILY 11/24/18 Reported Metoprolol Succinate ( Xl ) (Metoprolol Succinate) 25 Mg Tab.er.24h 50 Mg PO DAILY 11/24/18 Reported Acetaminophen 650 Mg/20.3 Ml Solution 650 Mg FT PRN PRN 11/24/18 Reported Miralax (Polyethylene Glycol 3350) 17 Gm Powd.pack 1 Pkt PO DAILY 11/24/18 Reported Ferrous Sulfate 325 Mg Tablet 325 Mg PO BID 11/24/18 Reported Seroquel (Quetiapine Fumarate) 200 Mg Tablet 200 Mg PO HS 11/24/18 Reported Melatonin 3 Mg Tablet 3 Mg PO HS 11/24/18 Reported Proair Hfa Inhaler (Albuterol Sulfate) 8.5 Gm Hfa.aer.ad 1 Puff INH PRN Q6HRS PRN 10/13/18 Rx Proair Hfa Inhaler (Albuterol Sulfate) 8.5 Gm Hfa.aer.ad 2 Puff INH PRN Q6HRS PRN 03/03/18 Rx Colace 2-in-1 Tablet (Sennosides/Docusate Sodium) 1 Each Tablet 1 Each PO BID PRN 01/02/18 Rx Glucophage (Metformin Hcl) 500 Mg Tablet 1,000 Mg PO BIDWMEALS 05/20/15 Rx Simvastatin 10 Mg Tablet 10 Mg PO HS 10/13/14 Reported Symbicort 160-4.5 Mcg Inhaler (Budesonide/Formoterol Fumarate) 10.2 Gm Hfa.aer.ad 2 Puff IH BID 08/13/14 Reported Albuterol Sulfate Hfa Inhaler (Albuterol Sulfate) 8.5 Gm Hfa.aer.ad 2 Puff INH Q4HRS 08/13/14 Reported Impression . 1. Ntddh-zw-jacxnzp hypoxic respiratory failure secondary to combination of nmwyr-pu-[id number] diastolic heart failure and chronic obstructive pulmonary disease exacerbation. 2. Atrial fibrillation with rapid ventricular response, triggering diastolic heart failure and hypoxia. 3. Underlying morbid obesity with compensated hypercapnic respiratory acidosis. 4. Underlying chronic obstructive pulmonary disease. 5. Abnormal chest x-ray, more favoring congestive heart failure. Plan . 1. d/w daughter. wants no more BIPAP. comfort care. /hospice 2. will use in house hospice. d/w RN will sign off CLEM SCHAEFER MD Dec 17, 2018 11:33
--- NOTE | 2018-12-17 11:38 | PDOC ---
JETT RIOS NEWSPAPER VENDOR 12/17/18 1138: CARDIO Progress Notes Date and Time Date of Service 12/17/18 Time of Evaluation 1115 Subjective Subjective: Other (resting comfortably, sister and friend at bedside ) Vitals Vitals Vital Signs Date Time Temp Pulse Resp B/P (MAP) Pulse Ox O2 Delivery O2 Flow Rate FiO2 12/17/18 11:10 91 Nasal Cannula 2.0 12/17/18 08:51 77 136/64 12/17/18 06:57 97.5 26 97.5 Weight Weight [ ] Input and Output Intake and Output Intake and Output 12/17/18 07:00 Intake Total 100 ml Output Total 450 ml Balance -350 ml Intake Oral 100 ml Output Urine Total 450 ml Laboratory Labs Laboratory Tests Test 12/16/18 11:38 12/16/18 17:01 12/16/18 19:48 12/16/18 20:38 Glucose (Fingerstick) 335 mg/dL (70-99) 171 mg/dL (70-99) 177 mg/dL (70-99) O2 Saturation 95 % (92-99) Arterial Blood pH 7.41 (7.35-7.45) Arterial Blood pCO2 at Patient Temp 67 mmHg (35-46) Arterial Blood pO2 at Patient Temp 76 mmHg (65-108) Arterial Blood HCO3 42 mmol/L (21-28) Arterial Blood Base Excess 15 mmol/L (-3-3) Test 12/17/18 03:20 12/17/18 07:01 White Blood Count 4.1 x10^3/uL (4.0-11.0) Red Blood Count 3.46 x10^6/uL (3.50-5.40) Hemoglobin 8.6 g/dL (12.0-15.5) Hematocrit 28.4 % (36.0-47.0) Mean Corpuscular Volume 82 fL (79-100) Mean Corpuscular Hemoglobin 25 pg (25-35) Mean Corpuscular Hemoglobin Concent 30 g/dL (31-37) Red Cell Distribution Width 18.7 % (11.5-14.5) Platelet Count 147 x10^3/uL (140-400) Neutrophils (%) (Auto) 88 % (31-73) Lymphocytes (%) (Auto) 9 % (24-48) Monocytes (%) (Auto) 3 % (0-9) Eosinophils (%) (Auto) 1 % (0-3) Basophils (%) (Auto) 1 % (0-3) Neutrophils # (Auto) 3.6 x10^3/uL (1.8-7.7) Lymphocytes # (Auto) 0.3 x10^3/uL (1.0-4.8) Monocytes # (Auto) 0.1 x10^3/uL (0.0-1.1) Eosinophils # (Auto) 0.0 x10^3/uL (0.0-0.7) Basophils # (Auto) 0.0 x10^3/uL (0.0-0.2) Sodium Level 140 mmol/L (136-145) Potassium Level 5.2 mmol/L (3.5-5.1) Chloride Level 98 mmol/L (98-107) Carbon Dioxide Level 38 mmol/L (21-32) Anion Gap 4 (6-14) Blood Urea Nitrogen 34 mg/dL (7-20) Creatinine 0.8 mg/dL (0.6-1.0) Estimated GFR (Cockcroft-Gault) 73.2 Glucose Level 302 mg/dL (70-99) Calcium Level 8.2 mg/dL (8.5-10.1) Glucose (Fingerstick) 297 mg/dL (70-99) Microbiology Micro Microbiology 12/12/18 Blood Culture - Preliminary, Resulted NO GROWTH AFTER 4 DAYS Physical Exam HEENT: Neck Supple W Full Motion Chest: Symmetric LUNGS: Other (coarse ) Heart: S1S2, RRR Abdomen: Soft N/T Extremities: Other (1+ bilateral LE edema ) Neurology: alert, other (slightly drowsy) Assessment Assessment 1. Acute on chronic respiratory failure; multifactorial in the setting of CHF and AE COPD. Requiring BiPAP- patient/family no longer wants. Family decision to proceed with Hospice 2. Atrial fibrillation with RVR; maintaining SR. Rate controlled 3. Acute on chronic diastolic CHF; precipitated by COPD and RVR. Recent echo with preserved LV function 4. Mental retardation 5. Hypertension; controlled 6, Hyperlipidemia; statin therapy 7. Diabetes, II; uncontrolled Recommendations Comfort measures, Hospice Please call with questions. NOELLE RYAN MD 12/17/18 2016: CARDIO Progress Notes Assessment Assessment Patient seen and examined. Agree with [facility] [employer]'s assessment and plan. Maintaining sinus rhythm Patient presently hospice We will follow as needed JETT RIOS APRN Dec 17, 2018 11:38 NOELLE RYAN MD Dec 17, 2018 20:16
--- NOTE | 2018-12-17 11:54 | PDOC ---
[facility] PROGRESS NOTE Chief Complaint Chief Complaint COPD exacerbation Afib with RVR History of Present Illness History of Present Illness 12/17/18 Pt seen and examined Nurses were cleaning the pt I talked extensively to the pt's sisters about her prognosis and terminal illness. Family requested that we provide comfort measures and discontinue her medications and begin a morphine drip. DENISSE RN 12/16/18 Pt was seen and examined at bedside Pt was sleeping On bipap during examination (Bipap settin/8, 35% O2) NSR observed with rate of 80 Chart and labs reviewed ABG is 7.29, up from 7.19 ABG CO2 is 85, down from 120 EF = 60-75% 1 to 1 observation D/w RN 12/15/18 Pt was seen and examined at bedside Was on bipap and asleep during examination NSR observed w/ rate of 81 1 to 1 observation Charts and labs reviewed ABG is 7.19, down from 7.33 EF = 60-75% D/w RN 12/14/18 Pt was seen and examined at bedside Was resting upon examination Normal sinus rhythm observed 1 to 1 observation EF = 60-65% Insulin ordered in the morning due to hyperglycemia 12/13/18 Pt was seen and examined today at bedside Now in normal sinus rhythm due to Cardizem Was in pleasant disposition Was able to state her age EF = 60-65% Vitals/I&O Vitals/I&O: Vital Signs Date Time Temp Pulse Resp B/P (MAP) Pulse Ox O2 Delivery O2 Flow Rate FiO2 12/17/18 11:10 91 Nasal Cannula 2.0 12/17/18 08:51 77 136/64 12/17/18 06:57 97.5 26 97.5 I & O 12/16/18 12/16/18 12/17/18 15:00 23:00 07:00 Intake Total 100 ml Output Total 450 ml Balance 100 ml -450 ml Physical Exam General: mild distress Heart: Regular rate Lungs: Other Abdomen: Normal bowel sounds Extremities: Normal pulses, Other (1-2+ bilateral LE edema ) Labs Labs: Laboratory Tests Test 12/16/18 17:01 12/16/18 19:48 12/16/18 20:38 12/17/18 03:20 Glucose (Fingerstick) 171 mg/dL (70-99) 177 mg/dL (70-99) O2 Saturation 95 % (92-99) Arterial Blood pH 7.41 (7.35-7.45) Arterial Blood pCO2 at Patient Temp 67 mmHg (35-46) Arterial Blood pO2 at Patient Temp 76 mmHg (65-108) Arterial Blood HCO3 42 mmol/L (21-28) Arterial Blood Base Excess 15 mmol/L (-3-3) White Blood Count 4.1 x10^3/uL (4.0-11.0) Red Blood Count 3.46 x10^6/uL (3.50-5.40) Hemoglobin 8.6 g/dL (12.0-15.5) Hematocrit 28.4 % (36.0-47.0) Mean Corpuscular Volume 82 fL (79-100) Mean Corpuscular Hemoglobin 25 pg (25-35) Mean Corpuscular Hemoglobin Concent 30 g/dL (31-37) Red Cell Distribution Width 18.7 % (11.5-14.5) Platelet Count 147 x10^3/uL (140-400) Neutrophils (%) (Auto) 88 % (31-73) Lymphocytes (%) (Auto) 9 % (24-48) Monocytes (%) (Auto) 3 % (0-9) Eosinophils (%) (Auto) 1 % (0-3) Basophils (%) (Auto) 1 % (0-3) Neutrophils # (Auto) 3.6 x10^3/uL (1.8-7.7) Lymphocytes # (Auto) 0.3 x10^3/uL (1.0-4.8) Monocytes # (Auto) 0.1 x10^3/uL (0.0-1.1) Eosinophils # (Auto) 0.0 x10^3/uL (0.0-0.7) Basophils # (Auto) 0.0 x10^3/uL (0.0-0.2) Sodium Level 140 mmol/L (136-145) Potassium Level 5.2 mmol/L (3.5-5.1) Chloride Level 98 mmol/L (98-107) Carbon Dioxide Level 38 mmol/L (21-32) Anion Gap 4 (6-14) Blood Urea Nitrogen 34 mg/dL (7-20) Creatinine 0.8 mg/dL (0.6-1.0) Estimated GFR (Cockcroft-Gault) 73.2 Glucose Level 302 mg/dL (70-99) Calcium Level 8.2 mg/dL (8.5-10.1) Test 12/17/18 07:01 Glucose (Fingerstick) 297 mg/dL (70-99) Review of Systems Review of Systems: Unable to obtain due to mental status Assessment and Plan Assessmemt and Plan Problems Medical Problems: (1) Atrial fibrillation with RVR Status: Acute (2) COPD exacerbation Status: Acute Assessment Atrial fibrillation with RVR COPD exacerbation Dyspnea Hypoxia Plan Comfort measures per family request Consult palliative care O2 per nasal cannula Morphine drip DNR Comment Review of Relevant I have reviewed the following items ana (where applicable) has been applied. Medications: Current Medications Medications (Trade) Dose Ordered Sig/[place] Route PRN Reason Start Time Stop Time Status Last Admin Dose Admin Methylprednisolone Sodium Succinate (SOLU-Medrol 40MG VIAL) 40 mg Q12HR IV 12/16/18 21:00 12/17/18 08:43 PARTHA EPPS III DO Dec 17, 2018 11:54
--- NOTE | 2018-12-17 12:00 | NUR ---
SS following up with discharge planning. Pt's family requesting to take pt off BIPAP and have GIP comfort care in the hospital. Pt taking off BIPAP. SS phoned and faxed referral to [facility], ; fax [phone]. SS will continue to follow for discharge planning.
[2018-12-17] MEDS: MORPHINE SULFATE 2 MG/ML VIAL. IV PRN ×3 (14:58→21:49)
--- NOTE | 2018-12-17 15:43 | NUR ---
SS following up with discharge planning. Pt accepted on [facility] for [facility]. Pt's RN and RN terminal supervisor notified.
[2018-12-17 19:30] VITALS: BP 150/79
[2018-12-18] MEDS: MORPHINE SULFATE 2 MG/ML VIAL. IV PRN ×3 (03:14→11:57)
[2018-12-18 04:12] LABS: BASO % 1 % (0-3); EOS % 0 % (0-3); HEMATOCRIT 34.3 % (36.0-47.0); HEMOGLOBIN 10.1 g/dL (12.0-15.5); LYMPH # 0.4 x10^3/uL (1.0-4.8); LYMPH % 7 % (24-48); MEAN CORPUSCULAR HEMOGLOBIN 25 pg (25-35); MEAN CORPUSCULAR HGB CONC 29 g/dL (31-37); MEAN CORPUSCULAR VOLUME 84 fL (79-100); MONO # 0.7 x10^3/uL (0.0-1.1); MONO % 11 % (0-9); NEUT # 5.6 x10^3/uL (1.8-7.7); NEUT % 82 % (31-73); PLATELET COUNT 241 x10^3/uL (140-400); RED BLOOD COUNT 4.06 x10^6/uL (3.50-5.40); RED CELL DISTRIBUTION WIDTH 18.8 % (11.5-14.5); WHITE BLOOD COUNT 6.8 x10^3/uL (4.0-11.0)
[2018-12-18 04:49] LABS: BLOOD UREA NITROGEN 25 mg/dL (7-20); CALCIUM 8.2 mg/dL (8.5-10.1); CARBON DIOXIDE 43 mmol/L (21-32); CHLORIDE 99 mmol/L (98-107); CREATININE 0.7 mg/dL (0.6-1.0); GFR 85.4; GLUCOSE 424 mg/dL (70-99); POTASSIUM 4.9 mmol/L (3.5-5.1); SODIUM 140 mmol/L (136-145)
[2018-12-18 07:00] VITALS: BP 119/65
--- NOTE | 2018-12-18 08:30 | PDOC ---
PROGRESS NOTES Chief Complaint Chief Complaint COPD exacerbation [id number] hypoxic respiratory failure secondary to combination of [id number] diastolic heart failure and chronic obstructive pulmonary disease exacerbation. 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 38 min pt exam, chart review, > 50% of time spent with exam, chart review, pt care coordination History of Present Illness History of Present Illness 12/18/18 Pt seen and examined provide comfort measures and discontinue her medications and begin a morphine drip. 12/16/18 Pt was seen and examined at bedside Pt was sleeping On bipap during examination (Bipap settin/8, 35% O2) NSR observed with rate of 80 Chart and labs reviewed ABG is 7.29, up from 7.19 ABG CO2 is 85, down from 120 EF = 60-75% 1 to 1 observation D/w RN 12/15/18 Pt was seen and examined at bedside Was on bipap and asleep during examination NSR observed w/ rate of 81 1 to 1 observation Charts and labs reviewed ABG is 7.19, down from 7.33 EF = 60-75% D/w RN 12/14/18 Pt was seen and examined at bedside Was resting upon examination Normal sinus rhythm observed 1 to 1 observation EF = 60-65% Insulin ordered in the morning due to hyperglycemia 12/13/18 Pt was seen and examined today at bedside Now in normal sinus rhythm due to Cardizem Was in pleasant disposition Was able to state her age EF = 60-65% Vitals Vitals Vital Signs Date Time Temp Pulse Resp B/P (MAP) Pulse Ox O2 Delivery O2 Flow Rate FiO2 12/18/18 07:00 98.5 113 18 119/65 (83) 91 Nasal Cannula 4.0 98.5 Physical Exam General: mild distress Heart: Regular rate Lungs: Other Abdomen: Normal bowel sounds Extremities: Normal pulses, Other (1-2+ bilateral LE edema ) Labs LABS TDI Lateral E' P. V 8.62cm/s Medial E' P. V 8.37cm/s E/Lateral E' 15.3 E/Medial E' 15.8 Tricuspid Valve TR P. Velocity 331cm/s RAP ESTIMATE 3mmHg TR Peak Gr. 44mmHg RVSP 47mmHg Pulmonary Vein S1 Velocity 47.2cm/s S2 Velocity 45.85cm/s D2 Velocity 45.8cm/s PVa duration 113msec LEFT VENTRICLE The left ventricle is normal size. There is mild concentric left ventricular hypertrophy. The left ventricular systolic function is normal. The Ejection Fraction is 60-65%. There is normal LV segmental wall motion. Transmitral Doppler flow pattern is Grade II-pseudonormal filling dynamics. RIGHT VENTRICLE The right ventricle is mildly dilated. There is normal right ventricular wall thickness. The right ventricular systolic function is normal. ATRIA The left atrium size is normal. The right atrium is borderline dilated. The interatrial septum is intact with no evidence for an atrial septal defect or patent foramen ovale as noted on 2-D or Doppler imaging. AORTIC VALVE The aortic valve is normal in structure and function. Doppler and Color Flow revealed no significant aortic regurgitation. There is no significant aortic valvular stenosis. MITRAL VALVE The mitral valve is normal in structure and function. There is no evidence of mitral valve prolapse. There is no mitral valve stenosis. Doppler and Color Flow revealed no mitral valve regurgitation noted. TRICUSPID VALVE The tricuspid valve is not well visualized. Doppler and Color Flow revealed trace tricuspid regurgitation with an estimated PAP of 47 mmHg. There is no tricuspid valve stenosis. PULMONIC VALVE The pulmonic valve is not well visualized. Doppler and Color Flow revealed no pulmonic valvular regurgitation. GREAT VESSELS The aortic root is normal in size. The IVC is normal in size and collapses >50% with inspiration. PERICARDIAL EFFUSION There is no evidence of significant pericardial effusion. Critical Notification Critical Value: No <Conclusion> The left ventricular systolic function is normal. The Ejection Fraction is 60-65%. There is normal LV segmental wall motion. Trace tricuspid regurgitation with an estimated PAP of 47 mmHg. There is no evidence of significant pericardial effusion. Signed by : Singh Fernández, Electronically Approved : 11/26/2018 07:32:46 PORTABLE CHEST 1V Clinical indications: Shortness of breath. Comparison: November 30, 2018. Findings: Small left-sided pleural effusion is seen which has increased in size associated compressive atelectasis or left lung base infiltrate. There has been improvement in the right-sided pleural effusion. Perihilar haziness seen previously which may have represented pulmonary edema has resolved. Cephalization of pulmonary flow seen previously has resolved. No pneumothorax is seen. The heart size and mediastinum are stable. Impression: Increase in small left-sided pleural effusion. There is associated compressive atelectasis or left lung base infiltrate. Improvement in right-sided pleural effusion and resolution of perihilar pulmonary edema and cephalization of pulmonary flow seen previously. Electronically signed by: Louis Nj MD (12/12/2018 9:21 AM) [id number] DICTATED and SIGNED BY: LOUIS NJ MD DATE: 12/12/18 0921 Laboratory Tests Test 12/18/18 02:58 White Blood Count 6.8 x10^3/uL (4.0-11.0) Red Blood Count 4.06 x10^6/uL (3.50-5.40) Hemoglobin 10.1 g/dL (12.0-15.5) Hematocrit 34.3 % (36.0-47.0) Mean Corpuscular Volume 84 fL (79-100) Mean Corpuscular Hemoglobin 25 pg (25-35) Mean Corpuscular Hemoglobin Concent 29 g/dL (31-37) Red Cell Distribution Width 18.8 % (11.5-14.5) Platelet Count 241 x10^3/uL (140-400) Neutrophils (%) (Auto) 82 % (31-73) Lymphocytes (%) (Auto) 7 % (24-48) Monocytes (%) (Auto) 11 % (0-9) Eosinophils (%) (Auto) 0 % (0-3) Basophils (%) (Auto) 1 % (0-3) Neutrophils # (Auto) 5.6 x10^3/uL (1.8-7.7) Lymphocytes # (Auto) 0.4 x10^3/uL (1.0-4.8) Monocytes # (Auto) 0.7 x10^3/uL (0.0-1.1) Eosinophils # (Auto) 0.0 x10^3/uL (0.0-0.7) Basophils # (Auto) 0.0 x10^3/uL (0.0-0.2) Sodium Level 140 mmol/L (136-145) Potassium Level 4.9 mmol/L (3.5-5.1) Chloride Level 99 mmol/L (98-107) Carbon Dioxide Level 43 mmol/L (21-32) Anion Gap (6-14) Blood Urea Nitrogen 25 mg/dL (7-20) Creatinine 0.7 mg/dL (0.6-1.0) Estimated GFR (Cockcroft-Gault) 85.4 Glucose Level 424 mg/dL (70-99) Calcium Level 8.2 mg/dL (8.5-10.1) Assessment and Plan Assessmemt and Plan Problems Medical Problems: (1) Atrial fibrillation with RVR Status: Acute (2) COPD exacerbation Status: Acute Comment Review of Relevant I have reviewed the following items ana (where applicable) has been applied. Labs Laboratory Tests Test 12/16/18 09:10 12/16/18 11:38 12/16/18 17:01 12/16/18 19:48 O2 Saturation 93 % (92-99) 95 % (92-99) Arterial Blood pH 7.29 (7.35-7.45) 7.41 (7.35-7.45) Arterial Blood pCO2 at Patient Temp 85 mmHg (35-46) 67 mmHg (35-46) Arterial Blood pO2 at Patient Temp 73 mmHg (65-108) 76 mmHg (65-108) Arterial Blood HCO3 40 mmol/L (21-28) 42 mmol/L (21-28) Arterial Blood Base Excess 11 mmol/L (-3-3) 15 mmol/L (-3-3) FiO2 40 Glucose (Fingerstick) 335 mg/dL (70-99) 171 mg/dL (70-99) Test 12/16/18 20:38 12/17/18 03:20 12/17/18 07:01 12/18/18 02:58 Glucose (Fingerstick) 177 mg/dL (70-99) 297 mg/dL (70-99) White Blood Count 4.1 x10^3/uL (4.0-11.0) 6.8 x10^3/uL (4.0-11.0) Red Blood Count 3.46 x10^6/uL (3.50-5.40) 4.06 x10^6/uL (3.50-5.40) Hemoglobin 8.6 g/dL (12.0-15.5) 10.1 g/dL (12.0-15.5) Hematocrit 28.4 % (36.0-47.0) 34.3 % (36.0-47.0) Mean Corpuscular Volume 82 fL (79-100) 84 fL (79-100) Mean Corpuscular Hemoglobin 25 pg (25-35) 25 pg (25-35) Mean Corpuscular Hemoglobin Concent 30 g/dL (31-37) 29 g/dL (31-37) Red Cell Distribution Width 18.7 % (11.5-14.5) 18.8 % (11.5-14.5) Platelet Count 147 x10^3/uL (140-400) 241 x10^3/uL (140-400) Neutrophils (%) (Auto) 88 % (31-73) 82 % (31-73) Lymphocytes (%) (Auto) 9 % (24-48) 7 % (24-48) Monocytes (%) (Auto) 3 % (0-9) 11 % (0-9) Eosinophils (%) (Auto) 1 % (0-3) 0 % (0-3) Basophils (%) (Auto) 1 % (0-3) 1 % (0-3) Neutrophils # (Auto) 3.6 x10^3/uL (1.8-7.7) 5.6 x10^3/uL (1.8-7.7) Lymphocytes # (Auto) 0.3 x10^3/uL (1.0-4.8) 0.4 x10^3/uL (1.0-4.8) Monocytes # (Auto) 0.1 x10^3/uL (0.0-1.1) 0.7 x10^3/uL (0.0-1.1) Eosinophils # (Auto) 0.0 x10^3/uL (0.0-0.7) 0.0 x10^3/uL (0.0-0.7) Basophils # (Auto) 0.0 x10^3/uL (0.0-0.2) 0.0 x10^3/uL (0.0-0.2) Sodium Level 140 mmol/L (136-145) 140 mmol/L (136-145) Potassium Level 5.2 mmol/L (3.5-5.1) 4.9 mmol/L (3.5-5.1) Chloride Level 98 mmol/L (98-107) 99 mmol/L (98-107) Carbon Dioxide Level 38 mmol/L (21-32) 43 mmol/L (21-32) Anion Gap 4 (6-14) (6-14) Blood Urea Nitrogen 34 mg/dL (7-20) 25 mg/dL (7-20) Creatinine 0.8 mg/dL (0.6-1.0) 0.7 mg/dL (0.6-1.0) Estimated GFR (Cockcroft-Gault) 73.2 85.4 Glucose Level 302 mg/dL (70-99) 424 mg/dL (70-99) Calcium Level 8.2 mg/dL (8.5-10.1) 8.2 mg/dL (8.5-10.1) Laboratory Tests Test 12/18/18 02:58 White Blood Count 6.8 x10^3/uL (4.0-11.0) Red Blood Count 4.06 x10^6/uL (3.50-5.40) Hemoglobin 10.1 g/dL (12.0-15.5) Hematocrit 34.3 % (36.0-47.0) Mean Corpuscular Volume 84 fL (79-100) Mean Corpuscular Hemoglobin 25 pg (25-35) Mean Corpuscular Hemoglobin Concent 29 g/dL (31-37) Red Cell Distribution Width 18.8 % (11.5-14.5) Platelet Count 241 x10^3/uL (140-400) Neutrophils (%) (Auto) 82 % (31-73) Lymphocytes (%) (Auto) 7 % (24-48) Monocytes (%) (Auto) 11 % (0-9) Eosinophils (%) (Auto) 0 % (0-3) Basophils (%) (Auto) 1 % (0-3) Neutrophils # (Auto) 5.6 x10^3/uL (1.8-7.7) Lymphocytes # (Auto) 0.4 x10^3/uL (1.0-4.8) Monocytes # (Auto) 0.7 x10^3/uL (0.0-1.1) Eosinophils # (Auto) 0.0 x10^3/uL (0.0-0.7) Basophils # (Auto) 0.0 x10^3/uL (0.0-0.2) Sodium Level 140 mmol/L (136-145) Potassium Level 4.9 mmol/L (3.5-5.1) Chloride Level 99 mmol/L (98-107) Carbon Dioxide Level 43 mmol/L (21-32) Anion Gap (6-14) Blood Urea Nitrogen 25 mg/dL (7-20) Creatinine 0.7 mg/dL (0.6-1.0) Estimated GFR (Cockcroft-Gault) 85.4 Glucose Level 424 mg/dL (70-99) Calcium Level 8.2 mg/dL (8.5-10.1) Microbiology 12/12/18 Blood Culture - Final, Complete NO GROWTH AFTER 5 DAYS Medications Current Medications Albuterol/ Ipratropium (Duoneb) 3 ml 1X ONCE NEB Last administered on 12/12/18at 09:16; Start 12/12/18 at 09:15; Stop 12/12/18 at 09:16; Status DC Methylprednisolone Sodium Succinate (SOLU-Medrol 125MG VIAL) 125 mg 1X ONCE IV Last administered on 12/12/18at 09:52; Start 12/12/18 at 09:15; Stop 12/12/18 at 09:16; Status DC Diltiazem HCl (Cardizem Iv Push) 10 mg 1X ONCE IVP Last administered on 12/12/18at 09:52; Start 12/12/18 at 09:15; Stop 12/12/18 at 09:16; Status DC Diltiazem HCl 125 mg/Dextrose 125 ml @ 5 mls/hr CONT PRN IV SEE I/O RECORD Last administered on 12/12/18at 09:51; Start 12/12/18 at 08:45; Stop 12/13/18 at 14:14; Status DC Piperacillin Sod/ Tazobactam Sod 3.375 gm/Sodium Chloride 50 ml @ 100 mls/hr 1X ONCE IV Last administered on 12/12/18at 12:15; Start 12/12/18 at 11:00; Stop 12/12/18 at 11:29; Status DC Vancomycin HCl 250 ml @ 250 mls/hr 1X ONCE IV Last administered on 12/12/18at 11:00; Start 12/12/18 at 11:00; Stop 12/12/18 at 11:59; Status DC Albuterol/ Ipratropium (Duoneb) 3 ml 1X ONCE NEB Last administered on 12/12/18at 12:57; Start 12/12/18 at 12:45; Stop 12/12/18 at 12:46; Status DC Magnesium Sulfate 50 ml @ 25 mls/hr 1X ONCE IV Last administered on 12/12/18at 15:23; Start 12/12/18 at 13:00; Stop 12/12/18 at 14:59; Status DC Metoprolol Succinate (Toprol Xl) 50 mg DAILY PO Last administered on 12/17/18 08:51; Start 12/12/18 at 14:00; Stop 12/17/18 at 13:33; Status DC Aspirin (Ecotrin) 81 mg DAILYWBKFT PO Last administered on 12/17/18 08:51; Start 12/12/18 at 14:30; Stop 12/17/18 at 13:33; Status DC Furosemide (Lasix) 20 mg 1X ONCE IVP Last administered on 12/12/18 15:21; Start 12/12/18 at 14:30; Stop 12/12/18 at 14:31; Status DC Potassium Chloride (Klor-Con) 20 meq 1X ONCE PO Last administered on 12/12/18 15:09; Start 12/12/18 at 14:30; Stop 12/12/18 at 14:31; Status DC Ferrous Sulfate (Feosol) 325 mg BIDWMEALS PO Last administered on 12/17/18 08:50; Start 12/12/18 at 17:00; Stop 12/17/18 at 13:33; Status DC Furosemide (Lasix) 20 mg DAILY PO Last administered on 12/17/18 08:51; Start 12/13/18 at 09:00 Metformin HCl (Glucophage) 1,000 mg BIDWMEALS PO Last administered on 12/17/18 08:51; Start 12/12/18 at 17:00; Stop 12/17/18 at 13:33; Status DC Polyethylene Glycol (miraLAX PACKET) 17 gm DAILY PO Last administered on 12/17/18 08:59; Start 12/13/18 at 09:00; Stop 12/17/18 at 13:33; Status DC Senna/Docusate Sodium (Senna Plus) 1 tab PRN BID PRN PO CONSTIPATION Last administered on 12/16/18 08:44; Start 12/12/18 at 15:30; Stop 12/17/18 at 13:33; Status DC Simvastatin (Zocor) 10 mg HS PO Last administered on 12/16/18at 20:34; Start 12/12/18 at 21:00; Stop 12/17/18 at 13:33; Status DC Albuterol Sulfate (Ventolin Neb Soln) 2.5 mg Q4HRS@0000,0400 NEB ; Start 12/13/18 at 00:00; Stop 12/13/18 at 11:44; Status DC Non-Formulary Medication (Budesonide/ Formoterol Fumarate (Symbicort 160-4.5 Mcg Inhaler)) 2 puff BID IH ; Start 12/12/18 at 21:00; Status UNV Non-Formulary Medication (Melatonin ) 3 mg HS PO ; Start 12/12/18 at 21:00; Status UNV Quetiapine Fumarate (SEROquel) 200 mg QHS PO Last administered on 12/16/18at 20:34; Start 12/12/18 at 21:00; Stop 12/17/18 at 13:33; Status DC Albuterol/ Ipratropium (Duoneb) 3 ml RTQID NEB Last administered on 12/17/18at 07:25; Start 12/12/18 at 16:00; Stop 12/17/18 at 13:47; Status DC Methylprednisolone Sodium Succinate (SOLU-Medrol 40MG VIAL) 40 mg Q8HRS IV Last administered on 12/16/18at 05:10; Start 12/12/18 at 22:00; Stop 12/16/18 at 10:57; Status DC Vancomycin HCl (Vanco Per Pharmacy) 1 each PRN DAILY PRN MC SEE COMMENTS Last administered on 12/14/18at 10:45; Start 12/12/18 at 15:45; Stop 12/15/18 at 13:10; Status DC Piperacillin Sod/ Tazobactam Sod (Zosyn Per Pharmacy) 1 each PRN DAILY PRN MC SEE COMMENTS; Start 12/12/18 at 15:45; Stop 12/17/18 at 13:33; Status DC Heparin Sodium (Porcine) (Heparin Sodium) 5,000 unit Q8HRS SQ Last administered on 12/17/18at 05:33; Start 12/12/18 at 17:00; Stop 12/17/18 at 13:33; Status DC Budesonide (Pulmicort) 0.5 mg RTBID NEB Last administered on 12/17/18at 07:24; Start 12/12/18 at 20:00; Stop 12/17/18 at 13:47; Status DC Piperacillin Sod/ Tazobactam Sod 3.375 gm/Sodium Chloride 50 ml @ 100 mls/hr Q6HRS IV Last administered on 12/17/18at 05:32; Start 12/12/18 at 18:00; Stop 12/17/18 at 13:33; Status DC Alprazolam (Xanax) 0.5 mg PRN Q4HRS PRN PO ANXIETY / AGITATION Last administered on 12/17/18at 08:50; Start 12/12/18 at 17:45; Stop 12/17/18 at 13:33; Status DC Vancomycin HCl 2 gm/Sodium Chloride 500 ml @ 250 mls/hr 1X ONCE IV Last administered on 12/12/18at 22:47; Start 12/12/18 at 18:30; Stop 12/12/18 at 20:2 9; Status DC Vancomycin HCl 1.25 gm/Sodium Chloride 250 ml @ 166.667 mls/hr Q8H IV Last administered on 12/13/18at 09:35; Start 12/13/18 at 02:30; Stop 12/13/18 at 19:14; Status DC Vancomycin HCl (Vancomycin Trough Level) 1 each 1X ONCE MC Last administered on 12/13/18at 18:00; Start 12/13/18 at 18:00; Stop 12/13/18 at 18:01; Status DC Insulin Human Lispro (HumaLOG) 30 units 1X ONCE SQ Last administered on 12/13/18at 01:04; Start 12/13/18 at 01:00; Stop 12/13/18 at 01:01; Status DC Insulin Human Lispro (HumaLOG) 0-7 UNITS TIDWMEALS SQ Last administered on 12/14/18at 17:03; Start 12/13/18 at 12:00; Stop 12/14/18 at 18:32; Status DC Dextrose (Dextrose 50%-Water Syringe) 12.5 gm PRN Q15MIN PRN IV SEE COMMENTS; Start 12/13/18 at 09:30; Stop 12/17/18 at 13:47; Status DC Dextrose 250 ml PRN Q15MIN PRN IV SEE COMMENTS; Start 12/13/18 at 09:30; Status UNV Nystatin (Nystop) 1 timothy BID TP Last administered on 12/17/18at 08:56; Start 12/13/18 at 10:00; Stop 12/17/18 at 13:39; Status DC Furosemide (Lasix) 20 mg 1X ONCE IVP Last administered on 12/13/18at 11:47; Start 12/13/18 at 09:45; Stop 12/13/18 at 09:57; Status DC Lactobacillus Rhamnosus (Culturelle) 1 cap BID PO Last administered on 12/17/18at 08:51; Start 12/13/18 at 21:00; Stop 12/17/18 at 13:33; Status DC Furosemide (Lasix) 20 mg 1X ONCE IVP Last administered on 12/13/18at 16:18; Start 12/13/18 at 16:15; Stop 12/13/18 at 16:16; Status DC Vancomycin HCl 1.25 gm/Sodium Chloride 250 ml @ 166.667 mls/hr Q12H IV Last administered on 12/14/18at 09:06; Start 12/13/18 at 22:00; Stop 12/14/18 at 12:00; Status DC Vancomycin HCl (Vancomycin Trough Level) 1 each 1X ONCE MC Last administered on 12/14/18at 09:02; Start 12/14/18 at 09:30; Stop 12/14/18 at 09:31; Status DC Diltiazem HCl (Cardizem 24hr ) 120 mg DAILY PO Last administered on 12/17/18at 08:51; Start 12/13/18 at 21:00; Stop 12/17/18 at 13:33; Status DC Insulin Human Lispro (HumaLOG) 30 units 1X ONCE SQ Last administered on 12/14/18at 09:00; Start 12/14/18 at 09:00; Stop 12/14/18 at 09:01; Status DC Vancomycin HCl 1 gm/Sodium Chloride 250 ml @ 250 mls/hr Q12H IV Last administered on 12/15/18at 09:44; Start 12/14/18 at 21:00; Stop 12/15/18 at 13:10; Status DC Influenza Virus Vaccine Quadrival (Afluria Quad 2019-20 (3yr Up) Syringe) 0.5 ml ONCE ONCE VAX IM Last administered on 12/14/18at 13:38; Start 12/14/18 at 11:00; Stop 12/14/18 at 11:01; Status DC Furosemide (Lasix) 40 mg 1X ONCE IVP Last administered on 12/14/18at 14:21; Start 12/14/18 at 14:15; Stop 12/14/18 at 14:16; Status DC Lorazepam (Ativan Inj) 0.25 mg 1X ONCE IV Last administered on 12/14/18at 16:47; Start 12/14/18 at 16:45; Stop 12/14/18 at 16:46; Status DC Temazepam (Restoril) 7.5 mg PRN QHS PRN PO INSOMNIA; Start 12/14/18 at 18:30; Stop 12/17/18 at 13:33; Status DC Ondansetron HCl (Zofran) 4 mg PRN Q6HRS PRN IVP NAUSEA/VOMITING; Start 12/14/18 at 18:30; Stop 12/17/18 at 13:33; Status DC Acetaminophen (Tylenol) 500 mg PRN Q6HRS PRN PO MILD PAIN / TEMP Last administered on 12/16/18at 20:34; Start 12/14/18 at 18:30; Stop 12/17/18 at 13:33; Status DC Insulin Human Lispro (HumaLOG) 0-9 UNITS TIDWMEALS SQ Last administered on 12/17/18at 08:54; Start 12/15/18 at 08:00; Stop 12/17/18 at 13:33; Status DC Dextrose (Dextrose 50%-Water Syringe) 12.5 gm PRN Q15MIN PRN IV SEE COMMENTS; Start 12/14/18 at 18:30; Stop 12/15/18 at 12:40; Status DC Albuterol Sulfate (Ventolin Neb Soln) 2.5 mg PRN Q4HRS PRN NEB SHORTNESS OF BREATH; Start 12/14/18 at 18:30; Stop 12/17/18 at 13:47; Status DC Methylprednisolone Sodium Succinate (SOLU-Medrol 40MG VIAL) 40 mg Q12HR IV Last administered on 12/17/18at 08:43; Start 12/16/18 at 21:00; Stop 12/17/18 at 13:33; Status DC Naloxone HCl (Narcan) 0.4 mg PRN Q2MIN PRN IV SEE INSTRUCTIONS; Start 12/17/18 at 11:00; Status UNV Sodium Chloride 1,000 ml @ 25 mls/hr Q24H IV ; Start 12/17/18 at 11:00; Stop 12/17/18 at 11:17; Status DC Morphine Sulfate 30 ml @ 0 mls/hr CONT PRN PRN IV PER PROTOCOL; Start 12/17/18 at 11:00; Stop 12/17/18 at 11:17; Status DC Morphine Sulfate (Morphine Sulfate) 5 mg PRN Q1HR PRN IV PAIN; Start 12/17/18 at 11:15; Stop 12/17/18 at 13:33; Status DC Morphine Sulfate (Roxanol Conc) 5 mg PRN Q2HRS PRN PO/SL MODERATE PAIN OR DYSPNEA; Start 12/17/18 at 11:30; Stop 12/17/18 at 13:33; Status DC Morphine Sulfate (Roxanol Conc) 10 mg PRN Q2HRS PRN PO/SL MODERATE PAIN OR DYSPNEA; Start 12/17/18 at 11:30; Stop 12/17/18 at 13:33; Status DC Morphine Sulfate (Morphine Sulfate) 2 mg PRN Q2HR PRN IV PAIN OR DYSPNEA,1st CHOICE Last administered on 12/17/18at 12:09; Start 12/17/18 at 11:30; Stop 12/17/18 at 13:33; Status DC Morphine Sulfate (Morphine Sulfate) 4 mg PRN Q2HR PRN IV PAIN OR DYSPNEA,1st CHOICE; Start 12/17/18 at 11:30; Stop 12/17/18 at 13:33; Status DC Fentanyl Citrate (Fentanyl 2ml Vial) 12.5 mcg PRN Q1HR PRN IV PAIN OR DYSPNEA ,2nd CHOICE; Start 12/17/18 at 11:30; Stop 12/17/18 at 13:33; Status DC Fentanyl Citrate (Fentanyl 2ml Vial) 25 mcg PRN Q1HR PRN IV PAIN OR DYSPNEA,2nd CHOICE; Start 12/17/18 at 11:30; Stop 12/17/18 at 13:33; Status DC Fentanyl Citrate (Fentanyl 2ml Vial) 50 mcg PRN Q1HR PRN IV PAIN OR DYSPNEA,2nd CHOICE; Start 12/17/18 at 11:30; Stop 12/17/18 at 13:33; Status DC Hydromorphone HCl (Dilaudid) 0.5 mg PRN Q2HRS PRN IV PAIN OR DYSPNEA,3rd CHOICE; Start 12/17/18 at 11:30; Stop 12/17/18 at 13:33; Status DC Hydromorphone HCl (Dilaudid) 1 mg PRN Q2HRS PRN IV PAIN OR DYSPNEA,3rd CHOICE; Start 12/17/18 at 11:30; Stop 12/17/18 at 13:33; Status DC Lorazepam (Ativan Inj) 2 mg PRN Q4HRS PRN IV ANXIETY / AGITATION Last administered on 12/18/18at 06:36; Start 12/17/18 at 11:30 Haloperidol Lactate (Haldol Inj) 1 mg PRN Q2HRS PRN IVP AGITATION, 2nd CHOICE; Start 12/17/18 at 11:30; Stop 12/17/18 at 13:33; Status DC Scopolamine (Transderm-Scop) 1 patch PRN Q72HRS PRN TD SECRETIONS Last administered on 12/17/18at 12:48; Start 12/17/18 at 11:30 Atropine Sulfate (Isopto Atropine) 2 drop PRN Q4HRS PRN SL SECRETIONS; Start 12/17/18 at 11:30 Haloperidol Lactate (Haldol Inj) 1 mg PRN Q2HRS PRN IVP SEVERE DELIRIUM; Start 12/17/18 at 11:30; Status UNV Haloperidol Lactate (Haldol Inj) 2 mg PRN Q2HRS PRN IVP SEVERE DELIRIUM; Start 12/17/18 at 11:30; Stop 12/17/18 at 13:33; Status DC Ondansetron HCl (Zofran) 4 mg PRN Q6HRS PRN IV NAUSEA/VOMITING, 1st CHOICE; Start 12/17/18 at 11:30 Prochlorperazine Edisylate (Compazine) 10 mg PRN Q6HRS PRN IV NAUSEA/VOMITING, 2nd CHOICE; Start 12/17/18 at 11:30; Stop 12/17/18 at 13:33; Status DC Bisacodyl (Dulcolax Supp) [address] CONSTIPATION, 1st CHOICE; Start 12/17/18 at 11:30 Sodium Monofluorophosphate (Fleet Adult) 133 ml PRN Q72HRS PRN CT CONSTIPATION, 2nd CHOICE; Start 12/17/18 at 11:30; Stop 12/17/18 at 13:33; Status DC Acetaminophen (Tylenol) 650 mg PRN Q6HRS PRN PO MILD PAIN/TEMP >100.4; Start 12/17/18 at 11:30; Stop 12/17/18 at 13:33; Status DC Acetaminophen (Tylenol) 650 mg PRN Q6HRS PRN PO MILD PAIN/TEMP >100.4; Start 12/17/18 at 11:30; Stop 12/17/18 at 13:33; Status DC Acetaminophen (Tylenol Supp) [address] MILD PAIN/TEMP >100.4; Start 12/17/18 at 11:30 Lorazepam (Ativan Inj) 2 mg PRN 1X PRN IV ANXIETY / AGITATION; Start 12/17/18 at 11:30 Morphine Sulfate (Morphine Sulfate) 2 mg PRN Q2HR PRN IV PAIN Last administered on 12/18/18at 03:14; Start 12/17/18 at 13:45 Active Scripts Active Proair Hfa Inhaler (Albuterol Sulfate) 8.5 Gm Hfa.aer.ad 1 Puff INH PRN Q6HRS PRN Proair Hfa Inhaler (Albuterol Sulfate) 8.5 Gm Hfa.aer.ad 2 Puff INH PRN Q6HRS PRN Colace 2-in-1 Tablet (Sennosides/Docusate Sodium) 1 Each Tablet 1 Each PO BID PRN Glucophage (Metformin Hcl) 500 Mg Tablet 1,000 Mg PO BIDWMEALS Reported Lasix (Furosemide) 20 Mg Tablet 20 Mg PO DAILY Metoprolol Succinate ( Xl ) (Metoprolol Succinate) 25 Mg Tab.er.24h 50 Mg PO DAILY Acetaminophen 650 Mg/20.3 Ml Solution 650 Mg FT PRN PRN Miralax (Polyethylene Glycol 3350) 17 Gm Powd.pack 1 Pkt PO DAILY Ferrous Sulfate 325 Mg Tablet 325 Mg PO BID Seroquel (Quetiapine Fumarate) 200 Mg Tablet 200 Mg PO HS Melatonin 3 Mg Tablet 3 Mg PO HS Simvastatin 10 Mg Tablet 10 Mg PO HS Symbicort 160-4.5 Mcg Inhaler (Budesonide/Formoterol Fumarate) 10.2 Gm Hfa.aer.ad 2 Puff IH BID Albuterol Sulfate Hfa Inhaler (Albuterol Sulfate) 8.5 Gm Hfa.aer.ad 2 Puff INH Q4HRS Vitals/I & O Vital Sign - Last 24 Hours 12/17/18 12/17/18 12/17/18 12/17/18 08:51 08:51 09:20 11:10 Pulse 77 77 B/P (MAP) 136/64 136/64 Pulse Ox 95 91 O2 Delivery BiPAP/CPAP Nasal Cannula O2 Flow Rate 2.0 12/17/18 12/17/18 12/17/18 12/18/18 14:21 19:30 20:00 07:00 Temp 98.2 98.5 98.2 98.5 Pulse 93 113 Resp 16 18 B/P (MAP) 150/79 (102) 119/65 (83) Pulse Ox 95 99 91 O2 Delivery Nasal Cannula Nasal Cannula Nasal Cannula O2 Flow Rate 5.0 4.0 4.0 Intake and Output 12/17/18 12/17/18 12/18/18 15:00 23:00 07:00 Intake Total 700 ml 100 ml Output Total 800 ml 400 ml 1100 ml Balance -800 ml 300 ml -1000 ml JEFFREY ROBERTO MD Dec 18, 2018 08:30
[2018-12-18] MEDS ORDERED: FUROSEMIDE 20 MG/2 ML VIAL. IVP SCH (09:30)
--- NOTE | 2018-12-18 14:02 | PDOC3 ---
Discharge Summary Date of Admission: Dec 12, 2018 Date of Discharge: Dec 18, 2018 Follow-Up: 1-2 days Admitting Diagnosis comment: DISCHARGE DX Chief Complaint COPD exacerbation [id number] hypoxic respiratory failure secondary to combination of [id number] diastolic heart failure and chronic obstructive pulmonary disease exacerbation. 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 38 min pt exam, chart review D/C PLANNING TIME , > 50% of time spent with exam, chart review, pt care coordination History of Present Illness History of Present Illness 12/18/18 Pt seen and examined provide comfort measures and discontinue her medications and begin a morphine drip. 12/16/18 Pt was seen and examined at bedside Pt was sleeping On bipap during examination (Bipap settin/8, 35% O2) NSR observed with rate of 80 Chart and labs reviewed ABG is 7.29, up from 7.19 ABG CO2 is 85, down from 120 EF = 60-75% 1 to 1 observation D/w RN 12/15/18 Pt was seen and examined at bedside Was on bipap and asleep during examination NSR observed w/ rate of 81 1 to 1 observation Charts and labs reviewed ABG is 7.19, down from 7.33 EF = 60-75% D/w RN 12/14/18 Pt was seen and examined at bedside Was resting upon examination Normal sinus rhythm observed 1 to 1 observation EF = 60-65% Insulin ordered in the morning due to hyperglycemia 12/13/18 Pt was seen and examined today at bedside Now in normal sinus rhythm due to Cardizem Was in pleasant disposition Was able to state her age EF = 60-65% Vitals Vitals Vital Signs Date Time Temp Pulse Resp B/P (MAP) Pulse Ox O2 Delivery O2 Flow Rate FiO2 12/18/18 07:00 98.5 113 18 119/65 (83) 91 Nasal Cannula 4.0 98.5 Physical Exam General: mild distress Heart: Regular rate Lungs: Other Abdomen: Normal bowel sounds Extremities: Normal pulses, Other (1-2+ bilateral LE edema ) Labs LABS TDI Lateral E' P. V 8.62cm/s Medial E' P. V 8.37cm/s E/Lateral E' 15.3 E/Medial E' 15.8 Tricuspid Valve TR P. Velocity 331cm/s RAP ESTIMATE 3mmHg TR Peak Gr. 44mmHg RVSP 47mmHg Pulmonary Vein S1 Velocity 47.2cm/s S2 Velocity 45.85cm/s D2 Velocity 45.8cm/s PVa duration 113msec LEFT VENTRICLE The left ventricle is normal size. There is mild concentric left ventricular hypertrophy. The left ventricular systolic function is normal. The Ejection Fraction is 60-65%. There is normal LV segmental wall motion. Transmitral Doppler flow pattern is Grade II-pseudonormal filling dynamics. RIGHT VENTRICLE The right ventricle is mildly dilated. There is normal right ventricular wall thickness. The right ventricular systolic function is normal. ATRIA The left atrium size is normal. The right atrium is borderline dilated. The interatrial septum is intact with no evidence for an atrial septal defect or patent foramen ovale as noted on 2-D or Doppler imaging. AORTIC VALVE The aortic valve is normal in structure and function. Doppler and Color Flow revealed no significant aortic regurgitation. There is no significant aortic valvular stenosis. MITRAL VALVE The mitral valve is normal in structure and function. There is no evidence of mitral valve prolapse. There is no mitral valve stenosis. Doppler and Color Flow revealed no mitral valve regurgitation noted. TRICUSPID VALVE The tricuspid valve is not well visualized. Doppler and Color Flow revealed trace tricuspid regurgitation with an estimated PAP of 47 mmHg. There is no tricuspid valve stenosis. PULMONIC VALVE The pulmonic valve is not well visualized. Doppler and Color Flow revealed no pulmonic valvular regurgitation. GREAT VESSELS The aortic root is normal in size. The IVC is normal in size and collapses >50% with inspiration. PERICARDIAL EFFUSION There is no evidence of significant pericardial effusion. Critical Notification Critical Value: No <Conclusion> The left ventricular systolic function is normal. The Ejection Fraction is 60-65%. There is normal LV segmental wall motion. Trace tricuspid regurgitation with an estimated PAP of 47 mmHg. There is no evidence of significant pericardial effusion. Signed by : Singh Fernández, Electronically Approved : 11/26/2018 07:32:46 PORTABLE CHEST 1V Clinical indications: Shortness of breath. Comparison: November 30, 2018. Findings: Small left-sided pleural effusion is seen which has increased in size associated compressive atelectasis or left lung base infiltrate. There has been improvement in the right-sided pleural effusion. Perihilar haziness seen previously which may have represented pulmonary edema has resolved. Cephalization of pulmonary flow seen previously has resolved. No pneumothorax is seen. The heart size and mediastinum are stable. Impression: Increase in small left-sided pleural effusion. There is associated compressive atelectasis or left lung base infiltrate. Improvement in right-sided pleural effusion and resolution of perihilar pulmonary edema and cephalization of pulmonary flow seen previously. Electronically signed by: Louis Nj MD (12/12/2018 9:21 AM) [id number] DICTATED and SIGNED BY: LOUIS NJ MD FINAL DIAGNOSIS Problems Medical Problems: (1) Atrial fibrillation with RVR Status: Acute (2) COPD exacerbation Status: Acute Brief Hospital Course Ms. Hope is a 58 old [sex] who presented with [ ] Discharge Medications Current Medications Albuterol/ Ipratropium (Duoneb) 3 ml 1X ONCE NEB Last administered on 12/12/18at 09:16; Start 12/12/18 at 09:15; Stop 12/12/18 at 09:16; Status DC Methylprednisolone Sodium Succinate (SOLU-Medrol 125MG VIAL) 125 mg 1X ONCE IV Last administered on 12/12/18at 09:52; Start 12/12/18 at 09:15; Stop 12/12/18 at 09:16; Status DC Diltiazem HCl (Cardizem Iv Push) 10 mg 1X ONCE IVP Last administered on 12/12/18at 09:52; Start 12/12/18 at 09:15; Stop 12/12/18 at 09:16; Status DC Diltiazem HCl 125 mg/Dextrose 125 ml @ 5 mls/hr CONT PRN IV SEE I/O RECORD Last administered on 12/12/18at 09:51; Start 12/12/18 at 08:45; Stop 12/13/18 at 14:14; Status DC Piperacillin Sod/ Tazobactam Sod 3.375 gm/Sodium Chloride 50 ml @ 100 mls/hr 1X ONCE IV Last administered on 12/12/18at 12:15; Start 12/12/18 at 11:00; Stop 12/12/18 at 11:29; Status DC Vancomycin HCl 250 ml @ 250 mls/hr 1X ONCE IV Last administered on 12/12/18at 11:00; Start 12/12/18 at 11:00; Stop 12/12/18 at 11:59; Status DC Albuterol/ Ipratropium (Duoneb) 3 ml 1X ONCE NEB Last administered on 12/12/18at 12:57; Start 12/12/18 at 12:45; Stop 12/12/18 at 12:46; Status DC Magnesium Sulfate 50 ml @ 25 mls/hr 1X ONCE IV Last administered on 12/12/18at 15:23; Start 12/12/18 at 13:00; Stop 12/12/18 at 14:59; Status DC Metoprolol Succinate (Toprol Xl) 50 mg DAILY PO Last administered on 12/17/18 08:51; Start 12/12/18 at 14:00; Stop 12/17/18 at 13:33; Status DC Aspirin (Ecotrin) 81 mg DAILYWBKFT PO Last administered on 12/17/18 08:51; Start 12/12/18 at 14:30; Stop 12/17/18 at 13:33; Status DC Furosemide (Lasix) 20 mg 1X ONCE IVP Last administered on 12/12/18at 15:21; Start 12/12/18 at 14:30; Stop 12/12/18 at 14:31; Status DC Potassium Chloride (Klor-Con) 20 meq 1X ONCE PO Last administered on 12/12/18at 15:09; Start 12/12/18 at 14:30; Stop 12/12/18 at 14:31; Status DC Ferrous Sulfate (Feosol) 325 mg BIDWMEALS PO Last administered on 12/17/18 08:50; Start 12/12/18 at 17:00; Stop 12/17/18 at 13:33; Status DC Furosemide (Lasix) 20 mg DAILY PO Last administered on 12/17/18 08:51; Start 12/13/18 at 09:00; Stop 12/18/18 at 09:09; Status DC Metformin HCl (Glucophage) 1,000 mg BIDWMEALS PO Last administered on 12/17/18 08:51; Start 12/12/18 at 17:00; Stop 12/17/18 at 13:33; Status DC Polyethylene Glycol (miraLAX PACKET) 17 gm DAILY PO Last administered on 12/17/18 08:59; Start 12/13/18 at 09:00; Stop 12/17/18 at 13:33; Status DC Senna/Docusate Sodium (Senna Plus) 1 tab PRN BID PRN PO CONSTIPATION Last administered on 12/16/18at 08:44; Start 12/12/18 at 15:30; Stop 12/17/18 at 13:33; Status DC Simvastatin (Zocor) 10 mg HS PO Last administered on 12/16/18at 20:34; Start 12/12/18 at 21:00; Stop 12/17/18 at 13:33; Status DC Albuterol Sulfate (Ventolin Neb Soln) 2.5 mg Q4HRS@0000,0400 NEB ; Start 12/13/18 at 00:00; Stop 12/13/18 at 11:44; Status DC Non-Formulary Medication (Budesonide/ Formoterol Fumarate (Symbicort 160-4.5 Mcg Inhaler)) 2 puff BID IH ; Start 12/12/18 at 21:00; Status UNV Non-Formulary Medication (Melatonin ) 3 mg HS PO ; Start 12/12/18 at 21:00; Status UNV Quetiapine Fumarate (SEROquel) 200 mg QHS PO Last administered on 12/16/18at 20:34; Start 12/12/18 at 21:00; Stop 12/17/18 at 13:33; Status DC Albuterol/ Ipratropium (Duoneb) 3 ml RTQID NEB Last administered on 12/17/18at 07:25; Start 12/12/18 at 16:00; Stop 12/17/18 at 13:47; Status DC Methylprednisolone Sodium Succinate (SOLU-Medrol 40MG VIAL) 40 mg Q8HRS IV Last administered on 12/16/18at 05:10; Start 12/12/18 at 22:00; Stop 12/16/18 at 10:57; Status DC Vancomycin HCl (Vanco Per Pharmacy) 1 each PRN DAILY PRN MC SEE COMMENTS Last administered on 12/14/18at 10:45; Start 12/12/18 at 15:45; Stop 12/15/18 at 13:10; Status DC Piperacillin Sod/ Tazobactam Sod (Zosyn Per Pharmacy) 1 each PRN DAILY PRN MC SEE COMMENTS; Start 12/12/18 at 15:45; Stop 12/17/18 at 13:33; Status DC Heparin Sodium (Porcine) (Heparin Sodium) 5,000 unit Q8HRS SQ Last administered on 12/17/18at 05:33; Start 12/12/18 at 17:00; Stop 12/17/18 at 13:33; Status DC Budesonide (Pulmicort) 0.5 mg RTBID NEB Last administered on 12/17/18at 07:24; Start 12/12/18 at 20:00; Stop 12/17/18 at 13:47; Status DC Piperacillin Sod/ Tazobactam Sod 3.375 gm/Sodium Chloride 50 ml @ 100 mls/hr Q6HRS IV Last administered on 12/17/18at 05:32; Start 12/12/18 at 18:00; Stop 12/17/18 at 13:33; Status DC Alprazolam (Xanax) 0.5 mg PRN Q4HRS PRN PO ANXIETY / AGITATION Last administered on 12/17/18at 08:50; Start 12/12/18 at 17:45; Stop 12/17/18 at 13:33; Status DC Vancomycin HCl 2 gm/Sodium Chloride 500 ml @ 250 mls/hr 1X ONCE IV Last administered on 12/12/18at 22:47; Start 12/12/18 at 18:30; Stop 12/12/18 at 20:29; Status DC Vancomycin HCl 1.25 gm/Sodium Chloride 250 ml @ 166.667 mls/hr Q8H IV Last administered on 12/13/18at 09:35; Start 12/13/18 at 02:30; Stop 12/13/18 at 19:14; Status DC Vancomycin HCl (Vancomycin Trough Level) 1 each 1X ONCE MC Last administered on 12/13/18at 18:00; Start 12/13/18 at 18:00; Stop 12/13/18 at 18:01; Status DC Insulin Human Lispro (HumaLOG) 30 units 1X ONCE SQ Last administered on 12/13/18at 01:04; Start 12/13/18 at 01:00; Stop 12/13/18 at 01:01; Status DC Insulin Human Lispro (HumaLOG) 0-7 UNITS TIDWMEALS SQ Last administered on 12/14/18at 17:03; Start 12/13/18 at 12:00; Stop 12/14/18 at 18:32; Status DC Dextrose (Dextrose 50%-Water Syringe) 12.5 gm PRN Q15MIN PRN IV SEE COMMENTS; Start 12/13/18 at 09:30; Stop 12/17/18 at 13:47; Status DC Dextrose 250 ml PRN Q15MIN PRN IV SEE COMMENTS; Start 12/13/18 at 09:30; Status UNV Nystatin (Nystop) 1 timothy BID TP Last administered on 12/17/18at 08:56; Start 12/13/18 at 10:00; Stop 12/17/18 at 13:39; Status DC Furosemide (Lasix) 20 mg 1X ONCE IVP Last administered on 12/13/18at 11:47; Start 12/13/18 at 09:45; Stop 12/13/18 at 09:57; Status DC Lactobacillus Rhamnosus (Culturelle) 1 cap BID PO Last administered on 12/17/18at 08:51; Start 12/13/18 at 21:00; Stop 12/17/18 at 13:33; Status DC Furosemide (Lasix) 20 mg 1X ONCE IVP Last administered on 12/13/18at 16:18; Start 12/13/18 at 16:15; Stop 12/13/18 at 16:16; Status DC Vancomycin HCl 1.25 gm/Sodium Chloride 250 ml @ 166.667 mls/hr Q12H IV Last administered on 12/14/18at 09:06; Start 12/13/18 at 22:00; Stop 12/14/18 at 12:00; Status DC Vancomycin HCl (Vancomycin Trough Level) 1 each 1X ONCE MC Last administered on 12/14/18at 09:02; Start 12/14/18 at 09:30; Stop 12/14/18 at 09:31; Status DC Diltiazem HCl (Cardizem 24hr Cd) 120 mg DAILY PO Last administered on 12/17/18at 08:51; Start 12/13/18 at 21:00; Stop 12/17/18 at 13:33; Status DC Insulin Human Lispro (HumaLOG) 30 units 1X ONCE SQ Last administered on 12/14/18at 09:00; Start 12/14/18 at 09:00; Stop 12/14/18 at 09:01; Status DC Vancomycin HCl 1 gm/Sodium Chloride 250 ml @ 250 mls/hr Q12H IV Last administered on 12/15/18at 09:44; Start 12/14/18 at 21:00; Stop 12/15/18 at 13:10; Status DC Influenza Virus Vaccine Quadrival (Afluria Quad 2019-20 (3yr Up) Syringe) 0.5 ml ONCE ONCE VAX IM Last administered on 12/14/18at 13:38; Start 12/14/18 at 11:00; Stop 12/14/18 at 11:01; Status DC Furosemide (Lasix) 40 mg 1X ONCE IVP Last administered on 12/14/18at 14:21; Start 12/14/18 at 14:15; Stop 12/14/18 at 14:16; Status DC Lorazepam (Ativan Inj) 0.25 mg 1X ONCE IV Last administered on 12/14/18at 16:47; Start 12/14/18 at 16:45; Stop 12/14/18 at 16:46; Status DC Temazepam (Restoril) 7.5 mg PRN QHS PRN PO INSOMNIA; Start 12/14/18 at 18:30; Stop 12/17/18 at 13:33; Status DC Ondansetron HCl (Zofran) 4 mg PRN Q6HRS PRN IVP NAUSEA/VOMITING; Start 12/14/18 at 18:30; Stop 12/17/18 at 13:33; Status DC Acetaminophen (Tylenol) 500 mg PRN Q6HRS PRN PO MILD PAIN / TEMP Last administered on 12/16/18at 20:34; Start 12/14/18 at 18:30; Stop 12/17/18 at 13:33; Status DC Insulin Human Lispro (HumaLOG) 0-9 UNITS TIDWMEALS SQ Last administered on 12/17/18at 08:54; Start 12/15/18 at 08:00; Stop 12/17/18 at 13:33; Status DC Dextrose (Dextrose 50%-Water Syringe) 12.5 gm PRN Q15MIN PRN IV SEE COMMENTS; Start 12/14/18 at 18:30; Stop 12/15/18 at 12:40; Status DC Albuterol Sulfate (Ventolin Neb Soln) 2.5 mg PRN Q4HRS PRN NEB SHORTNESS OF BREATH; Start 12/14/18 at 18:30; Stop 12/17/18 at 13:47; Status DC Methylprednisolone Sodium Succinate (SOLU-Medrol 40MG VIAL) 40 mg Q12HR IV Last administered on 12/17/18at 08:43; Start 12/16/18 at 21:00; Stop 12/17/18 at 13:33; Status DC Naloxone HCl (Narcan) 0.4 mg PRN Q2MIN PRN IV SEE INSTRUCTIONS; Start 12/17/18 at 11:00; Status UNV Sodium Chloride 1,000 ml @ 25 mls/hr Q24H IV ; Start 12/17/18 at 11:00; Stop 12/17/18 at 11:17; Status DC Morphine Sulfate 30 ml @ 0 mls/hr CONT PRN PRN IV PER PROTOCOL; Start 12/17/18 at 11:00; Stop 12/17/18 at 11:17; Status DC Morphine Sulfate (Morphine Sulfate) 5 mg PRN Q1HR PRN IV PAIN; Start 12/17/18 at 11:15; Stop 12/17/18 at 13:33; Status DC Morphine Sulfate (Roxanol Conc) 5 mg PRN Q2HRS PRN PO/SL MODERATE PAIN OR DYSPNEA; Start 12/17/18 at 11:30; Stop 12/17/18 at 13:33; Status DC Morphine Sulfate (Roxanol Conc) 10 mg PRN Q2HRS PRN PO/SL MODERATE PAIN OR DYSPNEA; Start 12/17/18 at 11:30; Stop 12/17/18 at 13:33; Status DC Morphine Sulfate (Morphine Sulfate) 2 mg PRN Q2HR PRN IV PAIN OR DYSPNEA,1st CHOICE Last administered on 12/17/18at 12:09; Start 12/17/18 at 11:30; Stop 12/17/18 at 13:33; Status DC Morphine Sulfate (Morphine Sulfate) 4 mg PRN Q2HR PRN IV PAIN OR DYSPNEA,1st CHOICE; Start 12/17/18 at 11:30; Stop 12/17/18 at 13:33; Status DC Fentanyl Citrate (Fentanyl 2ml Vial) 12.5 mcg PRN Q1HR PRN IV PAIN OR DYSPNEA,2nd CHOICE; Start 12/17/18 at 11:30; Stop 12/17/18 at 13:33; Status DC Fentanyl Citrate (Fentanyl 2ml Vial) 25 mcg PRN Q1HR PRN IV PAIN OR DYSPNEA,2nd CHOICE; Start 12/17/18 at 11:30; Stop 12/17/18 at 13:33; Status DC Fentanyl Citrate (Fentanyl 2ml Vial) 50 mcg PRN Q1HR PRN IV PAIN OR DYSPNEA,2nd CHOICE; Start 12/17/18 at 11:30; Stop 12/17/18 at 13:33; Status DC Hydromorphone HCl (Dilaudid) 0.5 mg PRN Q2HRS PRN IV PAIN OR DYSPNEA,3rd CHOICE; Start 12/17/18 at 11:30; Stop 12/17/18 at 13:33; Status DC Hydromorphone HCl (Dilaudid) 1 mg PRN Q2HRS PRN IV PAIN OR DYSPNEA,3rd CHOICE; Start 12/17/18 at 11:30; Stop 12/17/18 at 13:33; Status DC Lorazepam (Ativan Inj) 2 mg PRN Q4HRS PRN IV ANXIETY / AGITATION Last administered on 12/18/18at 13:23; Start 12/17/18 at 11:30 Haloperidol Lactate (Haldol Inj) 1 mg PRN Q2HRS PRN IVP AGITATION, 2nd CHOICE; Start 12/17/18 at 11:30; Stop 12/17/18 at 13:33; Status DC Scopolamine (Transderm-Scop) 1 patch PRN Q72HRS PRN TD SECRETIONS Last administered on 12/17/18at 12:48; Start 12/17/18 at 11:30 Atropine Sulfate (Isopto Atropine) 2 drop PRN Q4HRS PRN SL SECRETIONS; Start 12/17/18 at 11:30 Haloperidol Lactate (Haldol Inj) 1 mg PRN Q2HRS PRN IVP SEVERE DELIRIUM; Start 12/17/18 at 11:30; Status UNV Haloperidol Lactate (Haldol Inj) 2 mg PRN Q2HRS PRN IVP SEVERE DELIRIUM; Start 12/17/18 at 11:30; Stop 12/17/18 at 13:33; Status DC Ondansetron HCl (Zofran) 4 mg PRN Q6HRS PRN IV NAUSEA/VOMITING, 1st CHOICE; Start 12/17/18 at 11:30 Prochlorperazine Edisylate (Compazine) 10 mg PRN Q6HRS PRN IV NAUSEA/VOMITING, 2nd CHOICE; Start 12/17/18 at 11:30; Stop 12/17/18 at 13:33; Status DC Bisacodyl (Dulcolax Supp) 10 mg PRN Q72HRS PRN DE CONSTIPATION, 1st CHOICE; Start 12/17/18 at 11:30 Sodium Monofluorophosphate (Fleet Adult) 133 ml PRN Q72HRS PRN DE CONSTIPATION, 2nd CHOICE; Start 12/17/18 at 11:30; Stop 12/17/18 at 13:33; Status DC Acetaminophen (Tylenol) 650 mg PRN Q6HRS PRN PO MILD PAIN/TEMP >100.4; Start 12/17/18 at 11:30; Stop 12/17/18 at 13:33; Status DC Acetaminophen (Tylenol) 650 mg PRN Q6HRS PRN PO MILD PAIN/TEMP >100.4; Start 12/17/18 at 11:30; Stop 12/17/18 at 13:33; Status DC Acetaminophen (Tylenol Supp) 650 mg PRN Q6HRS PRN DE MILD PAIN/TEMP >100.4; Start 12/17/18 at 11:30 Lorazepam (Ativan Inj) 2 mg PRN 1X PRN IV ANXIETY / AGITATION; Start 12/17/18 at 11:30 Morphine Sulfate (Morphine Sulfate) 2 mg PRN Q2HR PRN IV PAIN Last administered on 12/18/18at 11:27; Start 12/17/18 at 13:45 Furosemide (Lasix) 20 mg DAILY IVP Last administered on 12/18/18at 09:28; Start 12/18/18 at 09:30 Active Scripts Active Proair Hfa Inhaler (Albuterol Sulfate) 8.5 Gm Hfa.aer.ad 1 Puff INH PRN Q6HRS PRN Proair Hfa Inhaler (Albuterol Sulfate) 8.5 Gm Hfa.aer.ad 2 Puff INH PRN Q6HRS PRN Colace 2-in-1 Tablet (Sennosides/Docusate Sodium) 1 Each Tablet 1 Each PO BID PRN Glucophage (Metformin Hcl) 500 Mg Tablet 1,000 Mg PO BIDWMEALS Reported Lasix (Furosemide) 20 Mg Tablet 20 Mg PO DAILY Metoprolol Succinate ( Xl ) (Metoprolol Succinate) 25 Mg Tab.er.24h 50 Mg PO DAILY Acetaminophen 650 Mg/20.3 Ml Solution 650 Mg FT PRN PRN Miralax (Polyethylene Glycol 3350) 17 Gm Powd.pack 1 Pkt PO DAILY Ferrous Sulfate 325 Mg Tablet 325 Mg PO BID Seroquel (Quetiapine Fumarate) 200 Mg Tablet 200 Mg PO HS Melatonin 3 Mg Tablet 3 Mg PO HS Simvastatin 10 Mg Tablet 10 Mg PO HS Symbicort 160-4.5 Mcg Inhaler (Budesonide/Formoterol Fumarate) 10.2 Gm Hfa.aer.ad 2 Puff IH BID Albuterol Sulfate Hfa Inhaler (Albuterol Sulfate) 8.5 Gm Hfa.aer.ad 2 Puff INH Q4HRS Vital Signs Vital Signs Date Time Temp Pulse Resp B/P (MAP) Pulse Ox O2 Delivery O2 Flow Rate FiO2 12/18/18 11:27 91 Nasal Cannula 4.0 12/18/18 07:00 98.5 113 18 119/65 (83) 98.5 Labs Laboratory Tests Test 12/16/18 17:01 12/16/18 19:48 12/16/18 20:38 12/17/18 03:20 Glucose (Fingerstick) 171 mg/dL (70-99) 177 mg/dL (70-99) O2 Saturation 95 % (92-99) Arterial Blood pH 7.41 (7.35-7.45) Arterial Blood pCO2 at Patient Temp 67 mmHg (35-46) Arterial Blood pO2 at Patient Temp 76 mmHg (65-108) Arterial Blood HCO3 42 mmol/L (21-28) Arterial Blood Base Excess 15 mmol/L (-3-3) White Blood Count 4.1 x10^3/uL (4.0-11.0) Red Blood Count 3.46 x10^6/uL (3.50-5.40) Hemoglobin 8.6 g/dL (12.0-15.5) Hematocrit 28.4 % (36.0-47.0) Mean Corpuscular Volume 82 fL (79-100) Mean Corpuscular Hemoglobin 25 pg (25-35) Mean Corpuscular Hemoglobin Concent 30 g/dL (31-37) Red Cell Distribution Width 18.7 % (11.5-14.5) Platelet Count 147 x10^3/uL (140-400) Neutrophils (%) (Auto) 88 % (31-73) Lymphocytes (%) (Auto) 9 % (24-48) Monocytes (%) (Auto) 3 % (0-9) Eosinophils (%) (Auto) 1 % (0-3) Basophils (%) (Auto) 1 % (0-3) Neutrophils # (Auto) 3.6 x10^3/uL (1.8-7.7) Lymphocytes # (Auto) 0.3 x10^3/uL (1.0-4.8) Monocytes # (Auto) 0.1 x10^3/uL (0.0-1.1) Eosinophils # (Auto) 0.0 x10^3/uL (0.0-0.7) Basophils # (Auto) 0.0 x10^3/uL (0.0-0.2) Sodium Level 140 mmol/L (136-145) Potassium Level 5.2 mmol/L (3.5-5.1) Chloride Level 98 mmol/L (98-107) Carbon Dioxide Level 38 mmol/L (21-32) Anion Gap 4 (6-14) Blood Urea Nitrogen 34 mg/dL (7-20) Creatinine 0.8 mg/dL (0.6-1.0) Estimated GFR (Cockcroft-Gault) 73.2 Glucose Level 302 mg/dL (70-99) Calcium Level 8.2 mg/dL (8.5-10.1) Test 12/17/18 07:01 12/18/18 02:58 Glucose (Fingerstick) 297 mg/dL (70-99) White Blood Count 6.8 x10^3/uL (4.0-11.0) Red Blood Count 4.06 x10^6/uL (3.50-5.40) Hemoglobin 10.1 g/dL (12.0-15.5) Hematocrit 34.3 % (36.0-47.0) Mean Corpuscular Volume 84 fL (79-100) Mean Corpuscular Hemoglobin 25 pg (25-35) Mean Corpuscular Hemoglobin Concent 29 g/dL (31-37) Red Cell Distribution Width 18.8 % (11.5-14.5) Platelet Count 241 x10^3/uL (140-400) Neutrophils (%) (Auto) 82 % (31-73) Lymphocytes (%) (Auto) 7 % (24-48) Monocytes (%) (Auto) 11 % (0-9) Eosinophils (%) (Auto) 0 % (0-3) Basophils (%) (Auto) 1 % (0-3) Neutrophils # (Auto) 5.6 x10^3/uL (1.8-7.7) Lymphocytes # (Auto) 0.4 x10^3/uL (1.0-4.8) Monocytes # (Auto) 0.7 x10^3/uL (0.0-1.1) Eosinophils # (Auto) 0.0 x10^3/uL (0.0-0.7) Basophils # (Auto) 0.0 x10^3/uL (0.0-0.2) Sodium Level 140 mmol/L (136-145) Potassium Level 4.9 mmol/L (3.5-5.1) Chloride Level 99 mmol/L (98-107) Carbon Dioxide Level 43 mmol/L (21-32) Anion Gap (6-14) Blood Urea Nitrogen 25 mg/dL (7-20) Creatinine 0.7 mg/dL (0.6-1.0) Estimated GFR (Cockcroft-Gault) 85.4 Glucose Level 424 mg/dL (70-99) Calcium Level 8.2 mg/dL (8.5-10.1) Laboratory Tests Test 12/18/18 02:58 White Blood Count 6.8 x10^3/uL (4.0-11.0) Red Blood Count 4.06 x10^6/uL (3.50-5.40) Hemoglobin 10.1 g/dL (12.0-15.5) Hematocrit 34.3 % (36.0-47.0) Mean Corpuscular Volume 84 fL (79-100) Mean Corpuscular Hemoglobin 25 pg (25-35) Mean Corpuscular Hemoglobin Concent 29 g/dL (31-37) Red Cell Distribution Width 18.8 % (11.5-14.5) Platelet Count 241 x10^3/uL (140-400) Neutrophils (%) (Auto) 82 % (31-73) Lymphocytes (%) (Auto) 7 % (24-48) Monocytes (%) (Auto) 11 % (0-9) Eosinophils (%) (Auto) 0 % (0-3) Basophils (%) (Auto) 1 % (0-3) Neutrophils # (Auto) 5.6 x10^3/uL (1.8-7.7) Lymphocytes # (Auto) 0.4 x10^3/uL (1.0-4.8) Monocytes # (Auto) 0.7 x10^3/uL (0.0-1.1) Eosinophils # (Auto) 0.0 x10^3/uL (0.0-0.7) Basophils # (Auto) 0.0 x10^3/uL (0.0-0.2) Sodium Level 140 mmol/L (136-145) Potassium Level 4.9 mmol/L (3.5-5.1) Chloride Level 99 mmol/L (98-107) Carbon Dioxide Level 43 mmol/L (21-32) Anion Gap (6-14) Blood Urea Nitrogen 25 mg/dL (7-20) Creatinine 0.7 mg/dL (0.6-1.0) Estimated GFR (Cockcroft-Gault) 85.4 Glucose Level 424 mg/dL (70-99) Calcium Level 8.2 mg/dL (8.5-10.1) Allergies Allergies Coded Allergies Type Severity Reaction Last Updated Verified No Known Drug Allergies 03/03/13 No Disposition/Orders: Other (D/C TO INPT HOSPICE) JEFFREY ROBERTO MD Dec 18, 2018 14:02
== END 2018-12-18 15:28 | disposition hospice, home (50) | DRG 291 ==
LOC: ER 08:36 → ED HOLD 10:40 → 2 NORTH 16:50 → 5 SOUTH 12-17 19:25
PROVIDERS: ADMIT Internal Medicine; ATTEND Internal Medicine
PROC: 5A09357 Assistance with Respiratory Ventilation, Less than 24 Consecutive Hours, Continuous Positive Airway Pressure (ICD-10-PCS; principal; 2018-12-16)
PROC: 5A09357 Assistance with Respiratory Ventilation, Less than 24 Consecutive Hours, Continuous Positive Airway Pressure (ICD-10-PCS; 2018-12-17)
DX: I11.0 Hypertensive heart disease with heart failure (principal); J96.21 Acute and chronic respiratory failure with hypoxia; G93.41 Metabolic encephalopathy; J96.22 Acute and chronic respiratory failure with hypercapnia; J44.1 Chronic obstructive pulmonary disease with (acute) exacerbation; J98.11 Atelectasis; E87.2 Acidosis; I50.33 Acute on chronic diastolic (congestive) heart failure; M19.90 Unspecified osteoarthritis, unspecified site; F32.9 Major depressive disorder, single episode, unspecified; E78.00 Pure hypercholesterolemia, unspecified; E11.9 Type 2 diabetes mellitus without complications; F20.9 Schizophrenia, unspecified; I48.91 Unspecified atrial fibrillation; F79 Unspecified intellectual disabilities; E78.5 Hyperlipidemia, unspecified; F17.210 Nicotine dependence, cigarettes, uncomplicated; E66.01 Morbid (severe) obesity due to excess calories; Z51.5 Encounter for palliative care; R63.3 Feeding difficulties; Z68.35 Body mass index [BMI] 35.0-35.9, adult; Z87.11 Personal history of peptic ulcer disease; Z90.710 Acquired absence of both cervix and uterus; Z99.81 Dependence on supplemental oxygen; Z82.49 Family history of ischemic heart disease and other diseases of the circulatory system
CPT/HCPCS: 36415; 36600; 71045; 80048; 80053; 80202; 82805; 82962; 83735; 83880; 84145; 84484; 85007; 85025; 85610; 87040; 90471; 90686; 93005; 94640; 94660; 94760; 96365; 96367; 96375; J1644; J1815; J1940; J2060; J2270; J2543; J2920; J2930; J3370; J3475; J3490; J7040; J7050; J7620; J7626; 99291-25; G0378; J7030